=== PATIENT | male | born 1960 | race Caucasian/White ===

== ENCOUNTER 2023-12-22 14:42 | Emergency (ER) | payer SELFPAY ==
[2023-12-22 14:43] VITALS: BP 152/84; PULSE 66; TEMP 36.8; O2SAT 98; BMI 25.1
--- NOTE | 2023-12-22 14:50 | ED.GENADUL1 ---
HPI HPI - General Adult General Chief complaint: Back Pain/Injury Stated complaint: BACK PAIN/FALL Time Seen by Provider: 12/22/23 14:44 Source: patient Mode of arrival: ambulance Limitations: no limitations History of Present Illness HPI narrative: Patient is a 63-year-old male who presents to the emergency department by ambulance after a fall at home reporting back pain. Patient apparently had a fall outside his home on grass, got up and went inside his home where he consumed some alcohol and then fell in the grass again. He apparently called 911 for himself and was brought by ambulance. He denies head injury, loss of consciousness. EMS gave Toradol prior to arrival. Patient has a history of nerve block to the left arm, patient states because of the nerve block to his left arm he was off balance while he was walking. Per registration, the patient called the ER prior to calling 911 to ask if he could be evaluated and if EMS would bring him to this facility Related Data Previous Rx's ?Medication ?Instructions ?Recorded methocarbamol 750 mg tablet 750 mg PO TID PRN pain #20 tabs 12/22/23 Allergies Allergy/AdvReac Type Severity Reaction Status Date / Time No Known Drug Allergies Allergy Verified 12/22/23 14:48 Opioid HPI Opioid Management Most Recent Opioid Data: No Data to Display Review of Systems ROS Constitutional Denies: fever or chills Ears, nose, mouth, and throat Denies: throat pain or nasal congestion Cardiovascular Denies: chest pain Respiratory Denies: shortness of breath or cough Gastrointestinal Denies: nausea or vomiting Musculoskeletal Reports: back pain; Denies: neck pain, extremity pain or extremity swelling Hematologic/Lymphatic Denies: easy bruising or easy bleeding Exam Narrative Exam Narrative: Gen.: Awake, alert, in no distress Head: Normocephalic, atraumatic ENT: Moist mucous membranes, C-spine nontender Respiratory: No respiratory distress, lungs clear bilaterally Cardio: Regular rate and rhythm Gastrointestinal: Abdomen is soft, nondistended and nontender to palpation, hips nontender Back: No bony midline tenderness of the T-spine or L-spine with diffuse tenderness of the right flank and right hip posteriorly. No ecchymosis or CVA tenderness. Patient is able to logroll himself with no difficulty Extremities: Moves extremities equally, no injuries noted Psych: Normal mood and affect Neuro: No focal neuro deficit Skin: Warm, dry, intact Constitutional Vital Signs, click to edit/add: Last Vital Signs Temp 98.2 F 12/22/23 14:43 Pulse 66 12/22/23 14:43 Resp 20 12/22/23 14:43 BP 152/84 H 12/22/23 14:43 Pulse Ox 98 12/22/23 14:43 Course Vital Signs Vital signs: Vital Signs Temperature 98.2 F 12/22/23 14:43 Pulse Rate 66 12/22/23 14:43 Respiratory Rate 20 12/22/23 14:43 Blood Pressure 152/84 H 12/22/23 14:43 Pulse Oximetry 98 12/22/23 14:43 Temperature 98.2 F 12/22/23 14:43 Pulse Rate 66 12/22/23 14:43 Respiratory Rate 20 12/22/23 14:43 Blood Pressure 152/84 H 12/22/23 14:43 Pulse Oximetry 98 12/22/23 14:43 Medical Decision Making MDM Narrative Medical decision making narrative: Patient admits to drinking alcohol, however he is awake and alert and appropriate with no focal neurodeficits. CTs of the head, C-spine, lumbar spine and pelvis are unremarkable. He apparently filled a prescription for Percocet today per pharmacy records so he is discharged home with Robaxin follow-up with PCP. He has a responsible alliance party to pick him up from the emergency department. In no distress on reevaluation by attending physician at discharge. Patient is ambulating in the emergency department with no difficulty. SHARED APC VISIT, PHYSICIAN ATTESTATION: [id number] I performed a substantive part of the MDM during the patient?s E/M visit. I personally evaluated and examined the patient. I personally made or approved the documented management plan and acknowledge its risk of complications. Medical Records Medical records reviewed: Yes I reviewed the patient's medical records Imaging Data CT scan - head: Attestation: I have reviewed the pertinent imaging results. Radiologist's impression: ITS Impressions Cervical Spine CT 12/22/23 15:16 IMPRESSION: 1. No appreciable acute abnormality. 2. Mild to moderate degenerative changes of cervical spine, greatest at C6-7 where there is suspected marked foramen and moderate to marked central canal narrowing. Consider MRI follow-up for further evaluation. Electronically authenticated by: VIRGIL SEO Date: 12/22/2023 15:[address] 12/22/23 15:16 IMPRESSION: No acute intracranial abnormalities. Electronically authenticated by: BABS SOLIS Date: 12/22/2023 15:[address] 12/22/23 15:16 IMPRESSION: 1. No acute bone abnormality. 2. Mild degenerative changes of lumbar spine. 3. Nonspecific osseous growth/heterotopic bone formation arising from and anterior to the left iliac wing suspected to be sequela of remote trauma. No prior studies for comparison. Electronically authenticated by: VIRGIL SEO Date: 12/22/2023 15:[address] 12/22/23 15:16 IMPRESSION: 1. No acute bone abnormality. 2. Mild degenerative changes of lumbar spine. 3. Nonspecific osseous growth/heterotopic bone formation arising from and anterior to the left iliac wing suspected to be sequela of remote trauma. No prior studies for comparison. Electronically authenticated by: VIRGIL SEO Date: 12/22/2023 15:39 Discharge Plan Discharge Stand Alone Forms: Work/School Release, Portal Instructions Chief Complaint: Back Pain/Injury Clinical Impression: Fall, Low back pain Patient Disposition: Home, Self-Care Time of Disposition Decision: 16:13 Condition: Good Prescriptions / Home Meds: New methocarbamol 750 mg tablet 750 mg PO TID PRN (Reason: pain) Qty: 20 0RF Print Language: Slovenian Instructions: Acute Low Back Pain (ED) Referrals: Physician,Non-Staff, MD [Primary Care Provider] - 1 week
[2023-12-22] MEDS: ONDANSETRON PF 4 MG/2 ML VIAL IV (14:55)
[2023-12-22] MEDS: HYDROMORPHONE HCL 0.5 MG/0.5 ML SYRINGE IV (14:55)
[2023-12-22] MEDS: METHOCARBAMOL 500 MG TABLET PO (14:55)
--- NOTE | 2023-12-22 15:16 | CT_ITS ---
[address] [address] Patient Name: JOHN ASTORGA MRN: [id number] date: 1960 Sex: M Assigned Patient Location: ER Current Patient Location: Accession/Order Number: [id number] Exam Date: 12/22/2023 15:00 Report Date: 12/22/2023 15:39 At the request of: WANDA MONET Procedure: CT pelvis wo con EXAMINATION: CT pelvis wo con, CT lumbar spine wo con HISTORY: Fall , low back pain COMPARISON: No relevant comparison available. TECHNIQUE: Axial, Coronal, and Sagittal images were obtained without and/or with IV contrast as indicated by examination type. Dose reduction techniques were achieved by using automated exposure control and/or adjustment of mA and/or kV according to patient size and/or use of iterative reconstruction technique FINDINGS: BOWEL: No abnormality of the visible bowl. LYMPH NODES: No adenopathy. URINARY BLADDER: No visible focal wall thickening, lesion, or calculus. PELVIC ORGANS: No visible mass. Pelvic organs appropriate for patient age. ANTERIOR WALL: No hernia. BONES: Osseous growth and heterotopic bone formation along anterior margin of left iliac wing suspected represents sequela of remote trauma. Bilateral hip replacements. Moderate degenerative disc disease L5-S1. OTHER: Negative. CT/CT pelvis wo con IMPRESSION: 1. No acute bone abnormality. 2. Mild degenerative changes of lumbar spine. 3. Nonspecific osseous growth/heterotopic bone formation arising from and anterior to the left iliac wing suspected to be sequela of remote trauma. No prior studies for comparison. Electronically authenticated by: VIRGIL SEO Date: 12/22/2023 15:39
--- NOTE | 2023-12-22 15:16 | CT_ITS ---
The [address] [address] Patient Name: JOHN ASTORGA MRN: [id number] date: 1960 Sex: M Assigned Patient Location: ER Current Patient Location: ER Accession/Order Number: [id number] Exam Date: 12/22/2023 15:00 Report Date: 12/22/2023 15:31 At the request of: WANDA MONET Procedure: CT head/brain wo con EXAM: CT scan of the head without contrast. Dose reduction technique used: Automated exposure control and/or adjustment of the mA and/or kV according to patient size and/or use of iterative reconstruction technique. REASON FOR EXAM: Fall COMPARISON: None FINDINGS: No intracranial hemorrhage, mass effect, midline shift, fractures or evidence of acute ischemic infarct. No hydrocephalus. Mild generalized cerebral and cerebellar volume loss. Minimal small vessel gliosis. Paranasal sinuses and mastoid air cells are clear. Remainder unremarkable. CT/CT head/brain wo con IMPRESSION: No acute intracranial abnormalities. Electronically authenticated by: BABS SOLIS Date: 12/22/2023 15:31
--- NOTE | 2023-12-22 15:16 | CT_ITS ---
[address] [address] Patient Name: JOHN ASTORGA MRN: [id number] date: 1960 Sex: M Assigned Patient Location: ER Current Patient Location: Accession/Order Number: [id number] Exam Date: 12/22/2023 15:00 Report Date: 12/22/2023 15:39 At the request of: WANDA MONET Procedure: CT lumbar spine wo con EXAMINATION: CT pelvis wo con, CT lumbar spine wo con HISTORY: Fall , low back pain COMPARISON: No relevant comparison available. TECHNIQUE: Axial, Coronal, and Sagittal images were obtained without and/or with IV contrast as indicated by examination type. Dose reduction techniques were achieved by using automated exposure control and/or adjustment of mA and/or kV according to patient size and/or use of iterative reconstruction technique FINDINGS: BOWEL: No abnormality of the visible bowl. LYMPH NODES: No adenopathy. URINARY BLADDER: No visible focal wall thickening, lesion, or calculus. PELVIC ORGANS: No visible mass. Pelvic organs appropriate for patient age. ANTERIOR WALL: No hernia. BONES: Osseous growth and heterotopic bone formation along anterior margin of left iliac wing suspected represents sequela of remote trauma. Bilateral hip replacements. Moderate degenerative disc disease L5-S1. OTHER: Negative. CT/CT lumbar spine wo con IMPRESSION: 1. No acute bone abnormality. 2. Mild degenerative changes of lumbar spine. 3. Nonspecific osseous growth/heterotopic bone formation arising from and anterior to the left iliac wing suspected to be sequela of remote trauma. No prior studies for comparison. Electronically authenticated by: VIRGIL SEO Date: 12/22/2023 15:39
--- NOTE | 2023-12-22 15:16 | CT_ITS ---
The [address] [address] Patient Name: JOHN ASTORGA MRN: [id number] date: 1960 Sex: M Assigned Patient Location: ER Current Patient Location: ER Accession/Order Number: [id number] Exam Date: 12/22/2023 15:00 Report Date: 12/22/2023 15:33 At the request of: WANDA MONET Procedure: CT cervical spine wo con EXAMINATION: CT cervical spine wo con HISTORY: fall COMPARISON: No relevant comparison available. TECHNIQUE: Axial, Coronal, and Sagittal images were created without IV contrast. Dose reduction techniques were achieved by using automated exposure control and/or adjustment of mA and/or kV according to patient size and/or use of iterative reconstruction technique. FINDINGS: VERTEBRAL BODIES: Reversal of normal lordotic curvature of cervical spine. No fracture or spondylolisthesis. FACET JOINTS: Multilevel mild degenerative facet arthropathy. Osseous fusion of C2-3 on the left, likely developmental. DISCS: Mild narrowing C4-5, C5 and C6. Moderate narrowing C6-7 with prominent posterior disc osteophyte complex causing moderate central canal and marked bilateral foramen narrowing. CENTRAL CANAL: No evidence of hemorrhage. PARASPINAL AREA: No visible mass. CT/CT cervical spine wo con IMPRESSION: 1. No appreciable acute abnormality. 2. Mild to moderate degenerative changes of cervical spine, greatest at C6-7 where there is suspected marked foramen and moderate to marked central canal narrowing. Consider MRI follow-up for further evaluation. Electronically authenticated by: VIRGIL SEO Date: 12/22/2023 15:33
== END 2023-12-22 16:20 | disposition home or self-care (01) ==
PROVIDERS: Emergency Provider Emergency Medicine
DX: M54.50 Low back pain, unspecified (principal); Z91.81 History of falling
CPT/HCPCS: 70450; 72125; 72131; 72192; 96374; 96375; 99285; J1170; J2405

== ENCOUNTER 2024-03-26 14:00 | Emergency (ER) | payer OTHER, SELFPAY ==
[2024-03-26 14:19] VITALS: BP 133/79; PULSE 102; TEMP 36.7; O2SAT 97; BMI 26.5
== END 2024-03-26 14:39 | disposition left against medical advice (07) ==
PROVIDERS: Emergency Provider Emergency Medicine
DX: R51.9 Headache, unspecified (principal); Z53.21 Procedure and treatment not carried out due to patient leaving prior to being seen by health care provider

== ENCOUNTER 2024-03-26 22:21 | Emergency (ER) | payer OTHER, SELFPAY ==
[2024-03-26 22:28] VITALS: BP 107/69; PULSE 101; TEMP 36.6; O2SAT 95; BMI 28.1
--- OUTSIDE RECORDS SUMMARY | 2024-03-26 22:32 | XMS_ITS | CCD ---
Author Organization [facility] Care Team Providers Care Stone Repairer Name Role Phone Pcp, No Unavailable Unavailable Rosa Robertson MD Primary Care Provider Rosa Robertson MD Primary Care Provider [phone] Pcp, No Unavailable Unavailable Rosa Robertson MD Primary Care Provider MD Rosa Robertson Primary Care Provider [phone] MD Hector Cheng Emergency Provider [phone] Rosa Robertson MD Primary Care Provider PREM GUTHRIE Referring Unavailable ROBERTSON, ROSA Primary Care Unavailable PREM GUTHRIE Referring Unavailable ROBERTSON, ROSA Primary Care Unavailable PREM GUTHRIE Referring Unavailable ROBERTSON, ROSA Primary Care Unavailable ROBERTSON, ROSA Primary Care Unavailable ROBERTSON, ROSA Primary Care Unavailable PREM GUTHRIE Attending Unavailable PREM GUTHRIE Referring Unavailable ROBERTSON, ROSA Primary Care Unavailable PREM GUTHRIE Admitting Unavailable PREM GUTHRIE Attending Unavailable ROBERTSON, ROSA Primary Care Unavailable ROMA MILTON Consulting Unavailable FRANCISCO WAN Consulting Unavailable CHANCE WHITEHEAD Consulting Unavailable ROBERTSON, ROSA Primary Care Unavailable TIFFANIE SIFUENTES Referring Unavailable 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, No Unavailable Unavailable Rosa Robertson MD Primary Care Provider [phone] MD Rosa Robertson Primary Care Provider MD Messi Marie Attending Provider [phone] DO [place] Toure Emergency Provider [phone] Rosa Robertson MD Primary Care Provider KATHY ROJAS Attending Unavailable ROSA ROBERTSON Primary Care Unavailable ROSA ROBERTSON Primary Care Unavailable GATITO MORGAN Referring Unavailable ROSA ROBERTSON Primary Care Unavailable DO Perry Ledesma Emergency Provider [phone] Robertson, Rosa Primary Care Unavailable Hector Cheng Admitting Unavailable Hector Cheng Attending Unavailable Messi Marie Admitting Unavailable Messi Marie Attending Unavailable Robertson, Rosa Primary Care Unavailable Robertson, Rosa Primary Care Unavailable [place] Toure Admitting Unavailable [place] Toure Attending Unavailable Perry Ledesma Attending Unavailable Robertson, Rosa Primary Care Unavailable Perry Ledesma Admitting Unavailable ROBERTSON, ROSA L Primary Care Unavailable BROCK DE LA TORRE Attending Unavailable ROBERTSON, ROSA L Primary Care Unavailable BROCK VALDEZ Attending Unavailable SELF Referring Unavailable Robertson , Rosa L Primary Care Provider RENA JIANG Attending Unavailable MOISES KENNEDY Attending Unavailable MOISES KENNEDY Referring Unavailable MOISES KENNEDY Attending Unavailable RENA JIANG Attending Unavailable RENA JIANG Referring Unavailable Rosa Robertson MD Primary Care Provider ROBERTSON, ROSA L Primary Care Unavailable FACUNDO PENA Attending Unavailable ROBERTSON, ROSA L Primary Care Unavailable FACUNDO PENA Attending Unavailable ROBERTSON, ROSA L Primary Care Unavailable ROBERTSON, ROSA L Attending Unavailable ROBERTSON, ROSA L Primary Care Unavailable KARLI ACEVEDO Referring Unavailable ROBERTSON, ROSA L Primary Care Unavailable ROBERTSON, ROSA L Primary Care Unavailable KARLI ACEVEDO Referring Unavailable ROBERTSON, ROSA L Primary Care Unavailable ANNETTA MCCANN Attending Unavailable KARLI ACEVEDO Attending Unavailable ROBERTSON, ROSA L Primary Care Unavailable ROBERTSON, ROSA L Primary Care Unavailable ROBERTSON, ROSA L Primary Care Unavailable RIK ROSENTHAL Referring Unavailable ROBERTSON, ROSA L Primary Care Unavailable RIK ROSENTHAL Referring Unavailable MIMA SIMPSON Attending Unavailable ROBERTSON, ROSA L Primary Care Unavailable DAY HOLMAN Attending Unavailable ROBERTSON, ROSA L Primary Care Unavailable ROBERTSON, ROSA L Primary Care Unavailable SCOTT VOSS Attending Unavailabl e ROBERTSON, ROSA L Primary Care Unavailable SCOTT VOSS Referring Unavailabl e ROBERTSON, ROSA L Primary Care Unavailable HANNYT, RIK Referring Unavailable ROBERTSON, ROSA L Primary Care Unavailable AC ROSENTHALK Attending Unavailable ROBERTSON, ROSA L Primary Care Unavailable MESSI MARIE F Referring Unavailable ROBERTSON, ROSA L Primary Care Unavailable MYA RACHEL Attending Unavailable ROBERTSON, ROSA L Primary Care Unavailable GATITO MORGAN Attending Unavailable ILIANA ROBERTSONCY L Primary Care Unavailable RIK ROSENTHAL Attending Unavailable FACUNDO PENA Referring Unavailable RSOA ROBERTSON Angelo Primary Care Unavailable KARLI ACEVEDO Referring Unavailable ROSA ROBERTSON L Primary Care Unavailable ROBERTSONROSA L Primary Care Unavailable RIK ROSENTHAL Attending Unavailable ROSA ROBERTSON L Primary Care Unavailable Medications Current Medications Medication Drug Class(es) Dates Sig (Normalized) Sig (Original) acamprosate calcium 333 mg delayed release oral tablet (20 sources) Start: 11-22-2022 take 2 tablets by mouth three times daily acamprosate DR (CAMPRAL) 333 mg tablet Take 2 tablets by mouth three times daily. 12/07/2022 Active Comment on above: Take 2 tablets by mo ut three times daily. acetaminophen 325 mg / HYDROcodone bitartrate 5 mg oral tablet (20 sources) Opioid Agonist Start: 01-11-2024 End: 02-07-2024 take 1 tablet by mouth every eight hours as needed for pain HYDROcodone-acetami nophen (NORCO) 5-325 mg per tablet Indications: Postoperative state Take 1 tablet by mouth every 8 hours as needed for pain for up to 7 days. 21 tablet 01/31/2024 02/07/2024 Active Start: 01-04-2024 End: 01-11-2024 take 1 tablet by mouth every six hours as needed for pain HYDROcodone-acetaminophen (NORCO) 5-325 mg per tablet Indications: Postoperative state Take 1 tablet by mouth every 6 hours as needed for pain for up to 7 days. 28 tablet 01/04/2024 01/11/2024 Discontinued acetaminophen 325 mg / oxyCODONE hydrochloride 5 mg oral tablet (20 sources) Opioid Agonist Start: 12-22-2023 End: 01-04-2024 take 1 tablet by mouth every six hours as needed for pain oxyCODONE-acetaminophen (PERCOCET) 5-325 mg tablet Indications: Postoperative state Take 1 tablet by mouth every 6 hours as needed for pain for up to 7 days. 28 tablet 12/28/2023 01/04/2024 Active Start: 12-17-2023 End: 12-22-2023 take 1 tablet by mouth every four hours as needed for pain oxyCODONE-acetaminophen (PERCOCET) 5-325 mg tablet Indications: Primary arthrosis of first carpometacarpal joints, bilateral Take 1 tablet by mouth every 4 hours as needed for pain for up to 5 days. Patient should start on December 17, 2023. 30 tablet 12/17/2023 12/19/2023 Discontinued Start: 12-13-2023 End: 12-20-2023 take 1 tablet by mouth every six hours as needed for pain oxyCODONE-acetaminophen (PERCOCET) 5-325 mg tablet Indications: Primary arthrosis of first carpometacarpal joints, bilateral Take 1 tablet by mouth every 6 hours as needed for pain for up to 7 days. 28 tablet 0 12/13/2023 12/16/2023 Discontinued Start: 12-14-2022 End: 11-09-2023 take 1 tablet by mouth every eight hours as needed for pain oxyCODONE-acetaminophen (PERCOCET) 5-325 mg tablet Indications: Other specified injury of extensor muscle, fascia and tendon of left thumb at wrist and hand level, initial encounter Take 1 tablet by mouth every 8 hours as needed for pain. 20 tablet 12/21/2022 11/09/2023 Discontinued Start: 02-05-2022 End: 02-12-2022 take 1 tablet by mouth every six hours as needed for pain oxyCODONE-acetaminophen (PERCOCET) 5-325 mg tablet Indications: Orthopedic aftercare Take 1 tablet by mouth every 6 hours as needed for pain for up to 7 days. 28 tablet 0 02/05/2022 02/12/2022 Active Start: 10-12-2017 End: 11-07-2017 take 1 tablet by mouth every four hours Oxycodone-Acetaminophen (Percocet) 5-325 mg tablet Discontinued 1 TAB PO Q4H October 12, 2017 November 07, 2017 2:19am Comment on above: Take 1 tablet by ramila th every 6 hours as needed for pain for up to 7 days. Take 1 tablet by ramila th every 8 hours as needed for pain. [id number] 200 actuat albuterol 0.09 mg/actuat metered dose inhaler (20 sources) beta2-Adrenergic Agonist Start: 04-16-2022 albuterol (PROVENTIL HFA) INHALATION HFA inhaler (VENTOLIN,PROAIR,PROVENT IL) 90mcg 2 Puffs. 04/16/2022 Active Start: 04-16-2022 Start: 04-30-2021 End: 12-07-2022 take 2 puff(s) by inhalation every four hours as needed for wheezing albuterol HFA (PROAIR HFA) 90 mcg/actuation inhaler 2 Puffs every 4 hours as needed for wheezing/shortness of breath. Take as directed 1 Each 04/16/2022 12/07/2022 Discontinued (Course of therapy completed) Start: 10-12-2017 End: 11-07-2017 take 2.5 mg by inhalation four times daily Albuterol Sulfate Discontinued 2.5 MG INHALATION Four times daily October 12, 2017 12:00am November 07, 2017 2:20am Comment on above: 2 Puffs every 4 hour s as needed for wheezing/shortness of breath. Take as directed ALPRAZolam 1 mg oral tablet (4 sources) Benzodiazepine take 1 tablet by mouth in the morning ALPRAZolam (Xanax) 1 MG tablet Take 1 tablet by mouth in the morning and 1 tablet in the evening. Active amantadine hydrochloride 100 mg oral capsule (19 sources) Influenza A M2 Protein Inhibitor Start: amantadine (SYMMETREL) 100 MG capsule Amantadine Hcl Active 100 MG PO Daily September 13, 2021 12:00am 09/13/2021 Active Start: 09-13-2021 amantadine (SY MMETREL) 100 MG capsule Amantadine Hcl Active 100 MG PO Daily September 13, 2021 12:00am 0 09/13/2021 Active Start: 05-06-2021 End: 08-20-2021 take 1 capsule by mouth once daily amantadine HCl (SYMMETREL) 100 mg capsule Take 1 capsule by mouth once daily. 30 capsule 2 05/06/2021 08/20/2021 Discontinued (Course of therapy completed) Comment on above: Take 1 capsule by [facility] once daily. amitriptyline hydrochloride 50 mg oral tablet (20 sources) Tricyclic Antidepressant Start: 08-20-2021 End: 09-19-2023 amitriptyline (ELAVIL) 50 MG tablet Take 1 Tablet by mouth. 09/13/2021 Active Start: 05-06-2021 End: 08-20-2021 take 1 tablet by mouth once daily at bedtime amitriptyline (ELAVIL) 100 mg tablet Take 1 tablet by mouth daily at bedtime. 30 tablet 2 05/06/2021 08/20/2021 Discontinued (Course of therapy completed) take 1 tablet by ramila th at bedtime amitriptyline (Elavil) 10 MG tablet Take 1 tablet by mouth at bedtime Active Comment on above: Take 1 tablet by ramila th daily at bedtime. ascorbic acid 1000 mg oral tablet (20 sources) Vitamin C Start: 09-25-2021 End: 03-16-2022 take 1 tablet by mouth once daily Ascorbic Acid 1,000 mg tablet Indications: Cough , Hoarseness , Throat congestion TAKE 1 TABLET BY MOUTH DAILY 90 tablet 3 03/16/2022 Active Comment on above: Take 1 tablet by ramila th once daily. TAKE 1 TABLET BY RAMILA TH DAILY aspirin 81 mg delayed release oral tablet (20 sources) Platelet Aggregation Inhibitor, Nonsteroidal Anti-inflammatory Drug Start: 08-20-2021 End: 11-19-2022 take 1 tablet by mouth in the morning aspirin 81 MG EC tablet Take 1 tablet by mouth in the morning and 1 tablet before bedtime. 06/22/2022 Active Start: 08-24-2020 take 81 mg by mouth once daily Aspirin Active 81 MG PO Daily August 24, 2020 12:00am Start: 05-15-2020 End: 08-20-2022 take 1 tablet by mouth once daily aspirin, enteric coated (ECOTRIN LOW STRENGTH) 81 mg EC tablet Take 1 tablet by mouth once daily. 90 tablet 3 08/20/2021 Active Start: 02-06-2018 End: 10-15-2018 take 2 tablets by mouth twice daily Aspirin Discontinued 2 TAB PO Twice daily February 06, 2018 12:00am October 15, 2018 4:37pm Start: 03-12-2017 End: 10-12-2017 take 81 mg by mouth once daily Aspirin Discontinued 81 MG PO Daily March 12, 2017 1:00am October 12, 2017 8:44pm Comment on above: Take 1 tablet by ramila th once daily. benzonatate 100 mg oral capsule (20 sources) Non-narcotic Antitussive Start: 2 End: 2 take 1 capsule by mouth every eight hours as needed benzonatate (TESSALON PERLE) 100 mg capsule Take 1 capsule by mouth three times daily as needed. 90 capsule 2 01/13/2022 02/12/2022 Active Start: 09-23-2021 End: 12-17-2021 take 1 capsule by mouth every eight hours as needed benzonatate (TESSALON PERLES) 100 mg capsule Take 1 capsule by mouth three times daily as needed for cough. 30 capsule 0 09/23/2021 12/17/2021 Discontinued (Course of therapy completed) Comment on above: Take 1 capsule by mo uth three times daily as needed for cough. Take 1 capsule by mo uth three times daily as needed. cholecalciferol 0.025 mg oral tablet (20 sources) Vitamin D Start: take 1 tablet by mouth once daily VITAMIN D 25 mcg (1,000 unit) tab tablet Indications: Cough , Hoarseness , Throat congestion take 1 tablet by mouth daily 90 tablet 3 05/17/2023 Active Start: 03-04-2023 take 1 tablet by ramila th in the morning D3-1000 25 MCG (1000 UT) tablet Take 25 mcg by mouth in the morning. 03/04/2023 Active Start: 09-25-2021 End: 03-16-2022 take 1 tablet by mouth once daily VITAMIN D 25 mcg (1,000 unit) tab tablet Indications: Cough , Hoarseness , Throat congestion take 1 tablet by mouth daily 90 tablet 3 05/17/2023 Active Comment on above: Take 1 tablet by ramila th once daily. TAKE 1 TABLET BY RAMILA TH DAILY citalopram 40 mg oral tablet (20 sources) Serotonin Reuptake Inhibitor Start: 08-24-2020 take 60 mg by mouth once daily Citalopram Active 60 MG PO Daily August 24, 2020 12:00am Start: 08-24-2020 End: 08-24-2020 Citalopram Discontinued MG T ABLET August 24, 2020 12:00am August 24, 2020 8:01pm Start: 05-22-2020 End: 03-08-2022 take 1.5 tablets by mouth once daily citalopram (CELEXA) 40 mg tablet Indications: Anxiety Take 1.5 tablets by mouth once daily. 135 tablet 3 05/22/2020 03/08/2022 Discontinued Start: 10-12-2017 End: 08-24-2020 take 1 tablet by mouth once daily citalopram (CELEXA) 40 mg tablet Indications: Anxiety TAKE 1 TABLET BY MOUTH DAILY 90 tablet 3 06/11/2019 05/23/2020 Discontinued Comment on above: Take 1.5 tablets by mouth once daily. CPAP (20 sources) Start: 05-27-2021 CPAP Indications: SUSANNAH (obstructive sleep apnea) New set up: AutoCPAP 5-15 cm H2O, mask (pt pref), filters, heated humidity & tubing. Lifetime supplies. SUSANNAH G47.33. 1 Each 05/27/2021 Active Start: 05-27-2021 CPAP Indicatio ns: SUSANNAH (obstructive sleep apnea) New set up: AutoCPAP 5-15 cm H2O, mask (pt pref), filters, heated humidity & tubing. Lifetime supplies. SUSANNAH G47.33. 1 Each 0 05/27/2021 Active Comment on above: New set up: AutoCPAP 5-15 cm H2O, mask (pt pref), filters, heated humidity & tubing. Lifetime supplies. SUSANNAH G47.33. cyclobenzaprine hydrochloride 5 mg oral tablet (6 sources) Muscle Relaxant Start: 06-28-19 End: 07-09-19 take 1 tablet by mouth twice daily as needed for muscle spasms cyclobenzaprine (Flexeril) 5 MG tablet TAKE 1 TABLET BY MOUTH TWICE DAILY NEEDED MUSCLE SPASM 06/28/2022 Active Start: 05-22-2020 End: 05-27-2020 take 1 tablet by mouth every eight hours as needed cyclobenzaprine (FLEXERIL) 10 mg tablet Take 1 tablet by mouth every 8 hours as needed for Muscle Spasm or Pain for up to 5 days. 10 tablet 0 05/22/2020 05/27/2020 Comment on above: Take 1 tablet by ramila every 8 hours as needed for Muscle Spasm or Pain for up to 5 days. dicyclomine hydrochloride 10 mg oral capsule (8 sources) Anticholinergic Start: 11-23-19 End: 12-08-19 take 2 capsules by mouth four times daily as needed, then take 2 capsules by mouth three times daily as needed dicyclomine (BENTYL) 10 MG capsule Take 2 Capsules by mouth 4 times daily for 5 days, THEN 2 Capsules 3 times daily as needed for up to 10 days. 15 Capsule 11/22/2022 Active Start: 11-20-2022 End: 12-07-2022 Docosahexaenoate (4 sources) Start: 11-05-2021 take 2 capsules by mouth once daily at bedtime DOCOSAHEXAENOIC ACID ORAL TAKE 2 CAPSULES BY MOUTH once DAILY AT BEDTIME 11/05/2021 Active Start: 11-05-2021 take 2 capsules by m outh once daily at bedtime DOCOSAHEXAENOIC ACID ORAL TAKE 2 CAPSULES BY MOUTH once DAILY AT BEDTIME 0 11/05/2021 Active docosahexaenoic acid 120 mg / eicosapentaenoic acid 180 mg oral capsule (20 sources) Start: 06-06-2022 take 2 capsules by mouth at bedtime omega 8-anc-enx-fish oil 300 mg (120 mg- 180mg)-1,000 mg cap take 2 capsules by mouth at bedtime 60 capsule 8 07/27/2023 Active take 1 capsule by mouth at bedti me omega-3 (Fish Oil) 1000 MG capsule Take 2,000 mg by mouth at bedtime Active Comment on above: TAKE 2 CAPSULES BY M OUTH AT BEDTIME docusate sodium 50 mg / sennosides, detention 8.6 mg oral tablet (1 source) Start: 06-22-2022 End: 07-02-2022 take 1 tablet by mouth twice daily sennosides-docusate sodium (SENOKOT-S) 8.6-50 MG tablet Take 1 tablet by mouth 2 times daily for 10 days 20 tablet 0 06/22/2022 07/02/2022 Active doxycycline hyclate 100 mg oral capsule (16 sources) Tetracycline-class Drug Start: 12-14-2022 End: 12-24-2022 take 1 capsule by mouth twice daily doxycycline hyclate (VIBRAMYCIN) 100 mg capsule Indications: Other specified injury of extensor muscle, fascia and tendon of left thumb at wrist and hand level, initial encounter Take 1 capsule by mouth twice daily for 10 days. 20 capsule 0 12/14/2022 12/24/2022 Active Start: 09-25-2021 End: 12-17-2021 take 1 capsule by mouth twice daily doxycycline monohydrate (MONODOX) 100 mg capsule Indications: Cough , Throat congestion Take 1 capsule by mouth twice daily. 14 capsule 0 09/25/2021 12/17/2021 Discontinued (Course of therapy completed) Comment on above: Take 1 capsule by [facility] twice daily. Take 1 capsule by [facility] twice daily for 10 days. escitalopram 20 mg oral tablet (20 sources) Serotonin Reuptake Inhibitor Start: 04-01-2023 End: 10-03-2023 escitalopram oxalate (LEXAPRO) 20 mg tablet Indications: Anxiety , SOB (shortness of breath) TAKE 1 and ONE-HALF TABLETS BY MOUTH DAILY 45 tablet 5 10/03/2023 Active Start: 11-19-2022 take 30 mg by mouth once daily 30 mg, Oral, DAILY, First dose on Tue11/19/22 at 0900, Until Discontinued Start: 06-06-2022 escitalopram ( LEXAPRO) 20 MG tablet Take 1 and 1/2 tablet by mouth daily 0 06/06/2022 Active Start: 03-08-2022 End: 04-01-2023 take 1.5 tablets by mouth once daily escitalopram (LEXAPRO) 20 MG tablet Take 1.5 Tablets by mouth daily. 03/08/2022 Active Start: 03-08-2022 take 10 mg by mouth once daily Escitalopram Oxalate Active 10 MG PO Daily August 10, 2022 12:00am Start: 03-04-2022 End: 03-08-2022 take 1 tablet by mouth once daily escitalopram oxalate (LEXAPRO) 20 mg tablet Indications: Anxiety , SOB (shortness of breath) Take 1 tablet by mouth once daily. 45 tablet 11 03/04/2022 03/08/2022 Discontinued Comment on above: Take 1 tablet by [facility] once daily. Take 1.5 tablets by mouth once daily. Take 1 and 1/2 table t by mouth daily TAKE 1 and ONE-HALF TABLETS BY MOUTH DAILY fenofibrate 48 mg oral tablet (6 sources) Peroxisome Proliferator Receptor alpha Agonist Start: 11-22-19 take 1 tablet by mouth once daily fenofibrate (TRICOR) 48 MG tablet Take 1 Tablet by mouth daily. 30 Tablet 3 11/23/2022 Active ferrous sulfate 325 mg oral tablet (6 sources) Start: 11-20-19 take 1 tablet by mouth every other day ferrous sulfate 325 (65 Fe) MG tablet Take 1 Tablet by mouth every other day. 60 Tablet 2 11/23/2022 Active fluconazole 100 mg oral tablet (8 sources) Azole Antifungal Start: 12-30-19 End: 01-21-20 fluconazole (DIFLUCAN) 100 mg tablet Take 1 tablet by mouth once daily for 7 days. Take 2 tablet on the first day, then 1 tablet for the next 13 days for a total of 14 days 7 tablet 0 01/13/2022 01/20/2022 Active Comment on above: Take 1 tablet by ramila th once daily for 15 days. Take 2 tablet on the first day, then 1 tablet for the next 13 days for a total of 14 days Take 1 tablet by ramila th once daily for 7 days. Take 2 tablet on the first day, then 1 tablet for the next 13 days for a total of 14 days fluticasone propionate 0.05 mg/actuat metered dose nasal spray (20 sources) Corticosteroid Start: 07-17-19 take 2 spray(s) nasal route once daily at bedtime fluticasone (FLONASE) 50 mcg/actuation nasal spray Indications: Viral infection, unspecified use 2 (TWO) sprays IN EACH NOSTRIL DAILY AT BEDTIME 16 g 11 07/16/2021 Active Start: 07-16-2021 take 2 spray(s) nasa l route once daily at bedtime fluticasone (FLONASE) 50 mcg/act nasal inhaler use 2 (TWO) sprays IN EACH NOSTRIL DAILY AT BEDTIME 07/16/2021 Active Start: 08-24-2020 Fluticasone Pr opionate Active 2 SPRAY INTRANASAL Daily at bedtime August 24, 2020 12:00am Start: 09-25-2019 End: 07-07-2020 take 2 spray(s) nasal route once daily at bedtime fluticasone (FLONASE) 50 mcg/actuation nasal spray Indications: Viral illness Use 2 Sprays in each nostril daily at bedtime. 1 Bottle 11 09/25/2019 07/07/2020 Discontinued Comment on above: use 2 (TWO) sprays I N EACH NOSTRIL DAILY AT BEDTIME Use 2 Sprays in each nostril daily at bedtime. folic acid 1 mg oral tablet (6 sources) Start: 3 take 1 tablet by mouth once daily folic acid 1 MG tablet Take 1 Tablet by mouth daily. 30 Tablet 3 11/23/2022 Active gabapentin 300 mg oral capsule (4 sources) Anti-epileptic Agent Start: 4 End: 5 take 1 capsule by mouth three times daily gabapentin (NEURONTIN) 300 mg capsule Take 1 capsule by mouth three times a day for 90 days. 90 capsule 02/29/2024 05/29/2024 Active 1 ml galcanezumab-gnlm 120 mg/ml prefilled syringe (20 sources) Start: 3 Galcanezumab-gnlm (Emgality) 120 MG/ML SOSY inject 2 (TWO) ml SUBCUTANEOUSLY for 1 (ONE) dose (do not shake) 05/13/2022 Active Start: 05-13-2022 Start: 05-12-2022 End: 05-12-2022 inject 1 mL by subcutaneous injection every month galcanezumab-gnlm (EMGALITY PEN) 120 mg/mL pen Inject 1 mL subcutaneously once every month. Do not shake. Start after completing 240mg loading dose. 1 mL 11 05/12/2022 Active Start: 05-12-2022 inject 120 mg by sub cutaneous injection every 30 days Galcanezumab-gnlm (Emgality) 120 MG/ML SOAJ Inject 120 mg under the skin every 30 days. 05/12/2022 Active Comment on above: Inject 2 mL subcutan eously one time only for 1 dose. Do not shake. Inject 1 mL subcutan eously once every month. Do not shake. Start after completing 240mg loading dose. ibuprofen 800 mg oral tablet (20 sources) Nonsteroidal Anti-inflammatory Drug Start: 08-10-2022 take 800 mg by mouth three times daily Ibuprofen Active 800 MG PO Three times daily August 10, 2022 12:00am Start: 05-22-2020 End: 01-29-2022 take 1 tablet by mouth every eight hours as needed for pain ibuprofen (MOTRIN) 600 mg tablet Indications: Status post arthroscopy of right shoulder Take 1 tablet by mouth every 8 hours as needed for Pain. Take with food. 100 tablet 0 05/22/2020 01/29/2022 Discontinued (Course of therapy completed) Start: 05-16-2018 End: 10-15-2018 take 800 mg by mouth three times daily Ibuprofen Discontinued 800 MG PO Three times daily May 16, 2018 1:00am October 15, 2018 4:37pm Start: 10-12-2017 End: 10-15-2018 take 600 mg by mouth three times daily Ibuprofen Discontinued 600 MG PO Three times daily October 12, 2017 12:00am October 15, 2018 4:37pm Comment on above: Take 1 tablet by ramila th every 8 hours as needed for Pain. Take with food. LORazepam 0.5 mg oral tablet (20 sources) Benzodiazepine Start: End: take 1 tablet by mouth once daily at bedtime LORazepam (ATIVAN) 0.5 mg Indications: Primary insomnia Take 1 tablet by mouth daily at bedtime for 180 days. 30 tablet 5 09/19/2023 03/17/2024 Active Start: 11-18-2022 End: 11-18-2022 2 mg, Intravenous Push, STAT , 1 dose, On Tue11/18/22 at 2253 Start: 11-18-2022 End: 11-18-2022 2 mg, Intravenous Push, STAT , 1 dose, On Tue11/18/22 at 2217 losartan potassium 50 mg oral tablet (20 sources) Angiotensin 2 Receptor Janette Start: 11-22-2022 take 100 mg by mouth once daily 100 mg, Oral, DAILY, First dose (after last modification) on Tue11/22/22 at 0900, Until Discontinued Start: 11-19-2022 End: 11-21-2022 take 50 mg by mouth once daily 50 mg, Oral, DAILY, Fir st dose on Tue11/19/22 at 0900, Until Discontinued Start: 09-25-2021 End: 12-26-2023 take 1 tablet by mouth once daily losartan (COZAAR) 50 mg tablet Indications: Hypertension, unspecified type take 1 tablet by mouth every day 90 tablet 3 12/26/2023 Active Comment on above: Take 1 tablet by ramila th once daily. TAKE 1 TABLET BY RAMILA TH DAILY meloxicam 15 mg oral tablet (13 sources) Nonsteroidal Anti-inflammatory Drug Start: 11-01-2022 End: 12-31-2022 take 1 tablet by mouth once daily meloxicam (MOBIC) 15 MG tablet Take 1 Tablet by mouth daily. 0 11/01/2022 12/31/2022 Active Start: 09-03-2022 End: 10-03-2022 take 1 tablet by mouth once daily meloxicam (MOBIC) 15 MG tablet Take 1 tablet by mouth daily 30 tablet 1 09/03/2022 Active Start: 06-22-2022 End: 07-06-2022 take 1 tablet by mouth once daily meloxicam (MOBIC) 7.5 MG tablet Take 1 tablet by mouth daily for 14 days 14 tablet 0 06/22/2022 Active Start: 04-06-2020 End: 07-07-2020 take 1 tablet by mouth once daily meloxicam (MOBIC) 15 mg tablet Take 1 tablet by mouth once daily. 30 tablet 5 04/06/2020 07/07/2020 Discontinued End: 02-28-2020 meloxicam (MOBIC ORAL) Take by mouth. 02/28/2020 Discontinued Comment on above: Take 1 tablet by ramila th once daily. methocarbamol 750 mg oral tablet (20 sources) Muscle Relaxant Start: End: take 1 tablet by mouth three times daily methocarbamol (ROBAXIN) 750 mg tablet Take 1 tablet by mouth three times a day. 90 tablet 01/25/2024 Active Start: 11-19-2022 take 750 mg by mouth four times daily 750 mg, Oral, 4 TIMES DAILY, First dose on Tue11/19/22 at 1300, Until Discontinued 24 hr metoprolol succinate 50 mg extended release oral tablet (20 sources) beta-Adrenergic Janette Start: 12-26-2023 take 1 tablet by mouth every twenty-four hours at bedtime metoprolol succinate ER (TOPROL XL) 50 mg 24 hr tablet take 1 tablet by mouth at bedtime 90 tablet 3 12/26/2023 Active Start: 05-06-2021 End: 12-17-2021 take 1 tablet by mouth once daily metoprolol succinate ER (TOPROL XL) 100 mg Take 1 tablet by mouth once daily. 30 tablet 11 05/06/2021 12/17/2021 Discontinued (Dosage adjustment) Start: 08-24-2020 take 50 mg by mouth once daily Metoprolol Succinate Active 50 MG PO Daily August 24, 2020 12:00am Start: 05-15-2020 End: 12-26-2023 metoprolol (TOPROL-XL) 50 mg XL tablet Take 1 Tablet by mouth. 12/17/2021 Active Comment on above: Take 1 tablet by ramila th daily at bedtime. Take 1 tablet by ramila th once daily. TAKE 1 TABLET BY RAMILA TH DAILY AT BEDTIME Misc. Devices (BATH/SHOWER SEAT) MISC (7 sources) Start: 05-04-2022 Misc. Devices (BATH/SHOWER SEAT) MISC Dispense 1 Shower/Bath seat 1 each 0 05/04/2022 Active Misc. Devices (CLASSICS ROLLING WALKER) MISC (7 sources) Start: 05-04-2022 Misc. Devices (CLASSICS ROLLING WALKER) MISC Dispense 1 rolling walker 1 each 0 05/04/2022 Active Misc. Devices (RAISED TOILET SEAT) MISC (7 sources) Start: 05-04-2022 Misc. Devices (RAISED TOILET SEAT) MISC Dispense 1 raised toilet seat 1 each 0 05/04/2022 Active naproxen 500 mg oral tablet (20 sources) Nonsteroidal Anti-inflammatory Drug Start: 04-16-2022 End: 10-18-2023 take 1 tablet by mouth twice daily as needed for pain naproxen (NAPROSYN) 500 mg tablet Indications: Hip pain TAKE 1 TABLET BY MOUTH TWICE DAILY NEEDED FOR PAIN (TAKE WITH FOOD) 60 tablet 5 10/18/2023 Active Start: 07-07-2020 End: 01-29-2022 take 500 mg by mouth twice daily Naproxen Discontinued 500 MG PO Twice daily August 24, 2020 12:00am September 13, 2021 9:10pm Comment on above: Take 1 tablet by ramila th twice daily as needed (for pain). Take with food TAKE 1 TABLET BY RAMILA TH TWICE DAILY NEEDED FOR PAIN (TAKE WITH FOOD) pantoprazole 40 mg delayed release oral tablet (20 sources) Proton Pump Inhibitor Start: 07-23-19 End: 10-03-19 take 1 tablet by mouth once daily pantoprazole DR (PROTONIX) 40 mg tablet Indications: Gastroesophageal reflux disease without esophagitis take 1 tablet by mouth daily 30 tablet 5 10/03/2023 Active Comment on above: Take 1 tablet by ramila th once daily. TAKE 1 TABLET BY RAMILA TH DAILY perflutren lipid microspheres 1.3 mL in NaCl (PF) 0.9% 10 mL injection (DEFINITY) (20 sources) Start: 07-09-19 End: 10-09-19 perflutren lipid microspheres 1.3 mL in NaCl (PF) 0.9% 10 mL injection (DEFINITY) Start: 05-29-2020 End: 08-28-2021 perflutren lipid microsphere s 1.3 mL in NaCl (PF) 0.9% 10 mL injection (DEFINITY) PHENobarbital 65 mg/ml injec table solution (3 sources) Start: 11-22-2022 End: 11-23-2022 32.5 mg, Intravenous Push, EVERY 12 HOURS, 2 doses, First dose on Tue11/22/22 at 0911, Last dose on Tue11/22/22 at 2111 Start: 11-19-2022 65 mg, Intrave nous Push, EVERY 6 HOURS PRN, Starting on Tue11/19/22 at 1035, Until Discontinued, CIWA 9-12 and SBP greater than 165 mmHg and/or HR greater than 100 beats per minute, or CIWA 13 and above Start: 11-19-2022 End: 11-19-2022 take 1 dose intravenously once 130 mg, Intravenous Pus h, ONCE, 1 dose, On Tue11/19/22 at 0141 pramipexole dihydrochloride 0.125 mg oral tablet (20 sources) Nonergot Dopamine Agonist Start: 04-26-2023 take 1 tablet by mouth once daily at bedtime pramipexole (MIRAPEX) 0.125 mg tablet Take 1 tablet by mouth daily at bedtime. 30 tablet 5 04/26/2023 Active Start: 05-22-2020 End: 05-06-2021 take 1 tablet by mouth once daily Pramipexole (Mirapex) 0.125 mg Tablet Active 0.125 MG PO Daily August 24, 2020 12:00am Comment on above: Take 1 tablet by ramila th once daily. in evening for restless legs. Take 1 tablet by ramila th daily at bedtime. Respiratory Therapy Supplies (CareTouch 2 CPAP Hose Meat Molder) MISC (4 sources) Start: 05-27-2021 Respiratory Therapy Supplies (CareTouch 2 CPAP Hose Meat Molder) [facility] New set up: AutoCPAP 5-15 cm H2O, mask (pt pref), filters, heated humidity & tubing. Lifetime supplies. SUSANNAH G47.33. 05/27/2021 Active Start: 05-27-2021 Respiratory Th erapy Supplies (CareTouch 2 CPAP Hose Meat Molder) [facility] [place] New set up: AutoCPAP 5-15 cm H2O, mask (pt pref), filters, heated humidity & tubing. Lifetime supplies. SUSANNAH G47.33. 0 05/27/2021 Active riboflavin 100 mg oral tablet (20 sources) Start: 08-20-2021 End: 08-20-2022 take 4 tablets by mouth once daily VITAMIN B-2 100 mg tab Take 4 tablets by mouth once daily. 360 tablet 3 08/04/2022 Active Comment on above: Take 4 tablets by mo [facility] once daily. rosuvastatin calcium 5 mg oral tablet (20 sources) HMG-CoA Reductase Inhibitor Start: 10-19-2023 take 1 tablet by mouth at bedtime rosuvastatin (CRESTOR) 5 mg tablet Indications: Hypertriglyceridemia take 1 tablet by mouth at bedtime 90 tablet 3 10/19/2023 Active Start: 09-25-2021 End: 10-21-2022 take 1 tablet by mouth at bedtime rosuvastatin (CRESTOR) 5 mg tablet Indications: Hypertriglyceridemia take 1 tablet by mouth at bedtime 90 tablet 3 10/19/2023 Active Comment on above: Take 1 tablet by ramila th once daily. At bedtime TAKE 1 TABLET BY RAMILA TH AT BEDTIME 0.25 mg, 0.5 mg dose 1.5 ml semaglutide 1.34 mg/ml pen injector (20 sources) Start: 01-24-2023 semaglutide (OZEMPIC) 0.25 mg or 0.5 mg(2 mg/1.5 mL) pen Inject 0.25 mg subcutaneously one time a week. 1.5 mL 01/24/2023 Active Start: 06-30-2022 Semaglutide, 1 MG/DOSE, 2 MG/1.5ML SOPN Inject 0.25 mg under the skin once weekly. 06/30/2022 Active Start: 05-13-2022 End: 09-22-2023 semaglutide (OZEMPIC) 0.25 m g or 0.5 mg(2 mg/1.5 mL) pen Inject 0.25 mg subcutaneously one time a week. 1.5 mL 0 06/30/2022 01/21/2023 Discontinued Comment on above: Inject 0.25 mg subcu taneously one time a week. 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 Inject 1 mL (200 mg) into the shoulder, thigh, or buttocks every 14 (fourteen) days 6 mL 1 03/10/2024 08/25/2024 Active Start: 04-01-2023 End: 03-05-2024 inject 1 mL by intramuscular injection every other week testosterone cypionate (Depo-Testosterone) 200 MG/ML injection inject 1 ml INTRAMUSCULARLY EVERY 2 (TWO) weeks 04/01/2023 03/05/2024 Discontinued (Reorder) Start: 03-18-2022 testosterone c ypionate (DEPOTESTOTERONE CYPIONATE) 200 MG/ML injection Administer 1 ml (200 mg) intramuscularly every 2 weeks 0 03/18/2022 Active Start: 09-06-2019 End: 10-20-2020 testosterone cypionate (DEPO-TESTOSTERONE) 200 mg/mL injection Indications: Hypogonadism in male INJECT 0.5 ml INTRAMUSCULARLY EVERY TEN days. 6 mL 1 10/21/2020 Active Start: 03-12-2017 inject 1 mL by intra muscular injection every other week Testosterone Undecanoate Active 0.5 ML IM EVERY 2 WEEKS March 12, 2017 1:00am Comment on above: INJECT 0.5 ml INTRAM USCULARLY EVERY TEN days. thiamine 100 mg oral tablet (5 sources) Start: 11-26-19 End: 05-24-19 24 take 1 tablet by mouth once daily vitamin B-1 (THIAMINE) 100 MG tablet Take 1 Tablet by mouth daily. 180 Tablet 11/25/2022 Active tiZANidine 4 mg oral tablet (20 sources) Central alpha-2 Adrenergic Agonist Start: 07-02-19 End: 08-09-19 take 1 tablet by mouth twice daily as needed for headache tiZANidine (ZANAFLEX) 4 mg tablet TAKE 1 TABLET BY MOUTH TWICE DAILY NEEDED for headache 30 tablet 08/10/2023 Active Start: 06-22-2022 End: 06-26-2022 take 1 tablet by mouth every six hours as needed for muscle spasms tiZANidine (ZANAFLEX) 4 MG tablet Take 1 tablet by mouth every 6 hours as needed (muscle spasm) 16 tablet 0 06/22/2022 06/26/2022 Active Comment on above: Take 1 tablet by ramila th twice daily as needed (Headache). TAKE 1 TABLET BY RAMILA TH TWICE DAILY NEEDED FOR HEADACHE 24 hr divalproex sodium 500 mg extended release oral tablet (20 sources) Mood Stabilizer, Anti-epileptic Agent Start: End: take 1 tablet by mouth once daily at bedtime divalproex ER (DEPAKOTE ER) 500 mg 24 hr tablet Take 1 tablet by mouth daily at bedtime for 14 days. 14 tablet 0 06/25/2022 12/07/2022 Discontinued (Course of therapy completed) Start: 06-25-2022 Start: 03-02-2022 divalproex ER (DEPAKOTE ER) 500 MG ER tablet Take 500 mg by mouth. 06/25/2022 Active Start: 03-02-2022 End: 03-09-2022 take 1 tablet by mouth once daily at bedtime divalproex ER (DEPAKOTE ER) 500 mg 24 hr tablet Take 1 tablet by mouth daily at bedtime for 7 days. 7 tablet 0 03/02/2022 Active Comment on above: Take 1 tablet by ramila th daily at bedtime for 7 days. Take 1 tablet by ramila th daily at bedtime for 14 days. verapamil hydrochloride 180 mg extended release oral tablet (20 sources) Calcium Channel Janette Start: 03-29-2022 End: 09-02-2022 take 1 tablet by mouth once daily at bedtime verapamil SR (CALAN SR, ISOPTIN SR) 180 mg CR tablet Take 1 tablet by mouth daily at bedtime. 90 tablet 06/04/2022 Active Start: 03-29-2022 take 1 tablet by ramila th every twenty-four hours verapamil (CALAN-SR) 180 MG 24 hour tablet Take 180 mg by mouth. 03/29/2022 Active Start: 03-09-2022 End: 06-07-2022 take 1 tablet by mouth once daily verapamil SR (CALAN SR, ISOPTIN SR) 120 mg CR tablet Take 1 tablet by mouth once daily. 90 tablet 0 03/09/2022 06/07/2022 Active Comment on above: Take 1 tablet by ramila th once daily. Take 1 tablet by ramila th daily at bedtime. vitamin b12 0.5 mg oral tablet (10 sources) Vitamin B12 Start: 11-19-2022 take 1 tablet by mouth in the morning cyanocobalamin (Vitamin B-12) 500 MCG tablet Take 500 mcg by mouth in the morning. 11/23/2022 Active (1 source) Start: 05-27-2021 (7 sources) Start: 11-22-2022 End: 11-25-2022 [Order 1 Start] Name: vitamin B-1 (THIAMINE) tablet Signed Summary: 250 mg, Oral, DAILY, 3 doses, First dose on Tue11/22/22 at 0900, Last dose on Tue11/24/22 at 0900 [Order 1 End] [Order 2 Start] Name: vitamin B-1 (THIAMINE) tablet Signed Summary: 100 mg, Oral, DAILY, First dose on Tue11/25/22 at 0900, Until Discontinued [Order 2 End] Start: 11-20-2022 End: 11-20-2022 take 1 mL intravenously every hour at 175 mL/hr, Intra venous, CONTINUOUS, Starting on Tue11/20/22 at 0100, Until Tue11/20/22 at 1611 Start: 11-19-2022 End: 11-20-2022 take 1 mL intravenously every hour at 200 mL/hr, Intra venous, CONTINUOUS, Starting on Tue11/19/22 at 1500, Until Tue11/20/22 at 0007 Start: 11-19-2022 End: 11-19-2022 take 1 mL intravenously every hour at 175 mL/hr, Intra venous, CONTINUOUS, Starting on Tue11/19/22 at 1400, Until Tue11/19/22 at 1402 Start: 11-19-2022 End: 11-19-2022 take 1 mL intravenously every hour at 150 mL/hr, Intra venous, CONTINUOUS, Starting on Tue11/19/22 at 1300, Until Tue11/19/22 at 1323 Start: 11-19-2022 End: 11-19-2022 take 1 mL intravenously every hour at 150 mL/hr, Intra venous, CONTINUOUS, Starting on Tue11/19/22 at 0730, Until Tue11/19/22 at 1221 Start: 11-19-2022 End: 11-20-2022 take 4 [IU] intravenously every hour, then take 4 mL intravenously every hour 4 Units/hr (4 mL/hr), Intravenous, CONTINUOUS, Starting on Tue11/19/22 at 0730, Until Tue11/20/22 at 1611 Completed/Discontinued Medications Medication Drug Class(es) Dates Sig (Normalized) Sig (Original) acetaminophen 325 mg oral tablet (1 source) Start: 11-19-2022 take 650 mg by mouth every six hours 650 mg, Oral, Every 6 hours, First dose on Tue11/19/22 at 1200, Until Discontinued atorvastatin 40 mg oral tablet (20 sources) HMG-CoA Reductase Inhibitor Start: 11-20-2022 take 40 mg by mouth once daily 40 mg, Oral, DAILY, First dose (after last modification) on Tue11/20/22 at 0900, Until Discontinued Start: 11-19-2022 End: 11-19-2022 take 10 mg by mouth once daily 10 mg, Oral, DAILY, Fir st dose on Tue11/19/22 at 0900, Until Discontinued Start: 05-16-2019 End: 10-21-2022 take 1 tablet by mouth once daily atorvastatin (LIPITOR) 40 mg tablet Take 1 tablet by mouth once daily. 90 tablet 3 05/16/2019 08/20/2021 Discontinued Start: 03-12-2017 take 40 mg by mouth at bedtime Atorvastatin Active 40 MG PO Bedtime March 12, 2017 1:00am Comment on above: Take 1 tablet by ramila th once daily. betamethasone 3 mg/ml / betamethasone acetate 3 mg/ml injectable suspension (4 sources) Corticosteroid Start: 08-10-2023 End: 08-10-2023 betamethasone acetate-betamethasone sodium phosphate 6 mg injection (CELESTONE) Start: 09-09-2021 End: 09-09-2021 betamethasone acetate-betame thasone sodium phosphate 6 mg injection (CELESTONE) Start: 09-09-2021 End: 09-09-2021 betamethasone acetate-betame thasone sodium phosphate 6 mg injection (CELESTONE) calcium chloride 0.0014 meq/ml / potassium chloride 0.004 meq/ml / sodium chloride 0.103 meq/ml / sodium lactate 0.028 meq/ml injectable solution (3 sources) Start: 11-18-2022 End: 11-19-2022 Intravenous, at 200 mL/hr, CONTINUOUS, Starting on Tue11/19/22 at 0230, Until Tue11/19/22 at 0648 cephalexin 500 mg oral capsule (20 sources) Cephalosporin Antibacterial Start: 11-21-2022 End: 11-27-2022 take 1 capsule by mouth four times daily cephALEXin (KEFLEX) 500 MG capsule Take 1 Capsule by mouth 4 times daily for 17 doses. 17 Capsule 0 11/22/2022 11/27/2022 Start: 02-09-2022 End: 12-07-2022 take 1 capsule by mouth three times daily cephALEXin (KEFLEX) 500 mg capsule Take 1 capsule by mouth three times daily. 30 capsule 1 02/09/2022 12/07/2022 Discontinued (Course of therapy completed) Start: 03-12-2017 End: 10-12-2017 take 1 capsule by mouth twice daily Cephalexin (Keflex) 500 mg capsule Discontinued 500 MG PO Twice daily 20 March 12, 2017 1:00am October 12, 2017 8:44pm Comment on above: Take 1 capsule by [facility] three times daily. 1 ml dexamethasone phosphate 4 mg/ml injection (2 sources) Corticosteroid Start: 03-13-2024 End: 03-13-2024 dexAMETHasone sodium phosphate 4 mg injection (DECADRON) Start: 03-13-2024 End: 03-13-2024 4 mg, Injection - FOR ORTHO USE ONLY, ONCE, 1 dose, Starting on Tue03/13/24 at 1534, Until Tue03/13/24 at 1534 100 ml dexmedetomidine 0.004 mg/ml injection (1 source) Central alpha-2 Adrenergic Agonist Start: 11-19-2022 End: 11-19-2022 take 4.9-34.1 mL intravenously every hour 0.2-1.4 mcg/kg/hr 97.4 kg (4.87-34.09 mL/hr, rounded to 4.9-34.1 mL/hr), Intravenous, CONTINUOUS, Starting on Tue11/19/22 at 0500, Until Tue11/19/22 at 1207 2 ml diazePAM 5 mg/ml prefilled syringe (1 source) Benzodiazepine Start: 11-19-2022 End: 11-19-2022 10 mg, Intravenous Push, EVERY 2 HOURS PRN, Starting on Tue11/19/22 at 0234, Until Tue11/19/22 at 1036, CIWA 9-12 and SBP greater than 165 mmHg and/or HR greater than 100 beats per minute, or CIWA 13 and above docusate sodium 100 mg oral capsule (1 source) Start: 11-19-2022 End: 11-21-2022 take 100 mg by mouth twice daily 100 mg, Oral, 2 TIMES DAILY, First dose on Tue11/19/22 at 0146, Until Discontinued Drug or medicament (substance) (3 sources) Start: 11-20-2022 End: 11-20-2022 15 mmol, Intravenous, ONCE, 1 dose, On Tue11/20/22 at 0330 Start: 11-19-2022 End: 11-19-2022 15 mmol, Intravenous, EVERY 2 HOURS X 2 DOSES, 2 doses, First dose (after last modification) on Tue11/19/22 at 0730, Last dose on Tue11/19/22 at 0930 Start: 11-05-2021 0.4 ml enoxaparin sodium 100 mg/ml prefilled syringe (1 source) Low Molecular Weight Heparin Start: 11-19-2022 End: 11-21-2022 inject 40 mg by subcutaneous injection once daily 40 mg, Subcutaneous, DAILY, First dose on Tue11/19/22 at 0900, Until Discontinued esomeprazole 40 mg injection (2 sources) Proton Pump Inhibitor Start: 11-21-2022 take 40 mg intravenously twice daily 40 mg, Intravenous Push, 2 TIMES DAILY, First dose on Tue11/21/22 at 1500, Until Discontinued Start: 11-19-2022 End: 11-21-2022 take 40 mg by mouth once daily 40 mg, Oral, DAILY, Fir st dose on Tue11/19/22 at 0900, Until Discontinued famotidine 20 mg oral tablet (1 source) Histamine-2 Receptor Antagonist Start: 11-20-2022 take 20 mg by mouth twice daily 20 mg, Oral, 2 TIMES DAILY, First dose on 11/20/22 at 1230, Until Discontinued 1 ml hydrALAZINE hydrochloride 20 mg/ml injection (1 source) Arteriolar Vasodilator Start: 11-19-2022 End: 11-21-2022 take 20 mg intravenously every six hours as needed 20 mg, Intravenous Push, EVERY 6 HOURS PRN, Starting on Tue11/19/22 at 0223, Until 11/21/22 at 1139, Other, For SBP>170 HYDROmorphone hydrochloride 2 mg oral tablet (1 source) Opioid Agonist Start: 11-20-2022 End: 11-20-2022 take 1 dose by mouth once 2 mg, Oral, ONCE, 1 dose, On 11/20/22 at 1800 Start: 11-20-2022 End: 11-20-2022 take 1 dose by mouth once 2 mg, Oral, ONCE, 1 dose, On 11/20/22 at 1800 6 ml hylan g-f 20 8 mg/ml prefilled syringe (1 source) Start: 12-04-2021 End: 12-04-2021 hylan G-F 20 48 mg/6 mL 48 m g injection (SYNVISC-ONE) Start: 12-04-2021 End: 12-04-2021 hylan G-F 20 48 mg/6 mL 48 m g injection (SYNVISC-ONE) 1 ml ketorolac tromethamine 15 mg/ml cartridge (5 sources) Nonsteroidal Anti-inflammatory Drug, Cyclooxygenase Inhibitor Start: 11-19-2022 End: 11-21-2022 take 15 mg intravenously every six hours as needed for pain 15 mg, Intravenous Push, EVERY 6 HOURS PRN, Starting on Tue11/19/22 at 1110, Until Tue11/21/22 at 1405, Mild Pain (pain score 1,2,3), Moderate Pain (pain score 4,5,6) Start: 02-06-2018 End: 05-16-2018 Ketorolac Discontinued 10 MG PO As Directed February 06, 2018 12:00am May 16, 2018 5:16pm 10 ml lidocaine hydrochloride 10 mg/ml injection (8 sources) Antiarrhythmic, Amide Local Anesthetic Start: 01-31-2024 End: 01-31-2024 lidocaine (PF) 10 mg/mL (1 %) 0.5 mL injection (XYLOCAINE) Start: 01-31-2024 End: 01-31-2024 0.5 mL, Injection - FOR ORTH O USE ONLY, ONCE, 1 dose, Starting on Tue01/31/24 at 0827, Until Tue01/31/24 at 0827 Start: 08-10-2023 End: 08-10-2023 lidocaine (PF) 10 mg/mL (1 % ) 1 mL injection (XYLOCAINE) Start: 11-19-2022 apply 2 doses transd ermal route every twenty-four hours 2 Patch, Transdermal, EVERY 24 HOURS, First dose on Tue11/19/22 at 1200, Until Discontinued Start: 11-10-2021 End: 11-10-2021 lidocaine (PF) 10 mg/mL (1 % ) 4 mL injection (XYLOCAINE) Start: 09-09-2021 End: 09-09-2021 lidocaine (PF) 10 mg/mL (1 % ) 1 mL injection (XYLOCAINE) Start: 09-09-2021 End: 09-09-2021 lidocaine (PF) 10 mg/mL (1 % ) 1 mL injection (XYLOCAINE) lisinopril 10 mg oral tablet (20 sources) Angiotensin Converting Enzyme Inhibitor Start: 11-07-2019 End: 09-25-2021 take 1 tablet by mouth once daily lisinopril (ZESTRIL, PRINIVIL) 10 mg tablet Take 1 tablet by mouth once daily. 45 tablet 3 11/07/2019 01/08/2021 Discontinued Start: 03-12-2017 take 10 mg by mouth once daily Lisinopril Active 10 MG PO Daily March 12, 2017 1:00am Comment on above: Take 1 tablet by ramila th once daily. 50 ml magnesium sulfate 40 mg/ml injection (2 sources) Start: 11-20-2022 End: 11-20-2022 2 g (2,000 mg), Intravenous, ONCE, 1 dose, On Tue11/20/22 at 0330 Start: 11-19-2022 End: 11-19-2022 4,000 mg, Intravenous, ONCE, 1 dose, On Tue11/19/22 at 0200 metaxalone 800 mg oral tablet (4 sources) Start: 11-07-2017 End: 05-16-2018 take 1 tablet by mouth three times daily Metaxalone (Skelaxin) 800 mg Tablet Discontinued 800 MG PO Three times daily November 07, 2017 12:00am May 16, 2018 5:15pm midazolam 1 mg/ml injectable solution (1 source) Benzodiazepine Start: 11-19-2022 End: 11-19-2022 take 1 dose intravenously once 2 mg, Intravenous Push, ONCE, 1 dose, On Tue11/19/22 at 0055 Start: 11-19-2022 End: 11-19-2022 take 1 dose intravenously once 2 mg, Intravenous Push, ONCE, 1 dose, On Tue11/19/22 at 0055 mupirocin 0.02 mg/mg topical ointment (1 source) RNA Synthetase Inhibitor Antibacterial Start: 11-21-2022 apply 1 dose topically three times daily Topical, 3 TIMES DAILY, First dose on Tue11/21/22 at 1430, Until Discontinued 24 hr nicotine 0.875 mg/hr transdermal system (5 sources) Cholinergic Nicotinic Agonist Start: 11-19-2022 21 mg, Transdermal, DAILY, First dose on Tue11/19/22 at 0230, Until Discontinued Start: 06-19-2019 End: 08-22-2020 apply 1 dose transdermal route every twenty-four hours nicotine (NICODERM CQ) 14 mg/24 hr Indications: Tobacco use disorder Apply 1 Patch as directed every 24 hours. 30 Patch 2 05/22/2020 08/22/2020 Discontinued Start: 06-19-2019 End: 12-27-2019 apply 1 dose transdermal route every twenty-four hours nicotine (NICODERM CQ) 21 mg/24 hr Indications: Tobacco use disorder Apply 1 Patch as directed every 24 hours. 30 Patch 2 06/19/2019 12/27/2019 Discontinued Start: 06-19-2019 End: 12-27-2019 nicotine (NICODERM CQ) 7 mg/ 24 hr Indications: Tobacco use disorder Apply 1 Patch as directed every 24 hours. 30 Patch 11 06/19/2019 12/27/2019 Discontinued Comment on above: Apply 1 Patch as directed every 24 hours . omega-3 fatty acids 1,000 mg cap (20 sources) Start: 09-26-19 End: 12-08-19 take 2 capsules by mouth once daily at bedtime omega-3 fatty acids 1,000 mg cap Indications: Hypertriglyceridemia Take 2 capsules by mouth once daily. At bedtime 60 capsule 1 09/25/2021 12/07/2022 Discontinued (Duplicate Entry) Start: 09-25-2021 take 2 capsules by m outh once daily at bedtime omega-3 fatty acids 1,000 mg cap Indications: Hypertriglyceridemia Take 2 capsules by mouth once daily. At bedtime 60 capsule 1 09/25/2021 Active Start: 09-25-2021 take 2 capsules by m outh once daily at bedtime omega-3 fatty acids 1,000 mg cap Take 2 capsules by mouth once daily. At bedtime 60 capsule 1 09/25/2021 Active Comment on above: Take 2 capsules by m outh once daily. At bedtime Imrxe-3-[id number]-EPA-F sean Oil 1,000 mg (120 mg-180 mg) cap (20 sources) Start: 11-05-2021 End: 12-07-2022 take 2 capsules by mouth once daily at bedtime Oyhny-6-FZC-EPA-Fish Oil 1,000 mg (120 mg-180 mg) cap TAKE 2 CAPSULES BY MOUTH once DAILY AT BEDTIME 60 capsule 11 11/05/2021 12/07/2022 Discontinued (Duplicate Entry) Start: 11-05-2021 take 2 capsules by m outh once daily at bedtime Lrznm-0-VOZ-EPA-Fish Oil 1,000 mg (120 mg-180 mg) cap TAKE 2 CAPSULES BY MOUTH once DAILY AT BEDTIME 60 capsule 11 11/05/2021 Active Comment on above: TAKE 2 CAPSULES BY M OUTH once DAILY AT BEDTIME oxyCODONE hydrochloride 5 mg oral tablet (20 sources) Opioid Agonist Start: End: take 1 tablet by mouth every six hours as needed for pain oxyCODONE IR (ROXICODONE) 5 mg immediate release tablet Indications: Post-operative state , Other specified injury of extensor muscle, fascia and tendon of left thumb at wrist and hand level, initial encounter Take 1 tablet by mouth every 6 hours as needed for pain. for pain. 20 tablet 12/29/2022 11/09/2023 Discontinued Start: 11-21-2022 End: 11-21-2022 take 1 dose by mouth once 2.5 mg, Oral, Once, 1 dose, On 11/21/22 at 1800 Start: 11-21-2022 End: 11-21-2022 take 1 dose by mouth once 2.5 mg, Oral, Once, 1 dose, On 11/21/22 at 1730 Start: 11-20-2022 5 mg, Oral, EV EDNA 12 HOURS PRN, Starting on 11/20/22 at 0900, Until Discontinued, Severe Pain (pain score 7,8,9,10) Start: 11-19-2022 End: 11-20-2022 5 mg, Oral, EVERY 8 HOURS DC N, Starting on Tue11/19/22 at 1404, Until 11/20/22 at 0847, Severe Pain (pain score 7,8,9,10) Start: 09-20-2022 End: 09-27-2022 take 1 tablet by mouth every six hours as needed for pain oxyCODONE (ROXICODONE) 5 MG immediate release tablet Indications: Primary osteoarthritis of left hip Take 1 tablet by mouth every 6 hours as needed for Pain for up to 7 days. Intended supply: 3 days. Take lowest dose possible to manage pain Max Daily Amount: 20 mg 28 tablet 0 09/20/2022 09/27/2022 Active Start: 07-05-2022 End: 07-12-2022 take 1 tablet by mouth twice daily oxyCODONE (ROXICODONE) 5 MG immediate release tablet Indications: Status post total hip replacement, left Take 1 tablet by mouth 2 times daily for 7 days. Intended supply: 7 days. Take lowest dose possible to manage pain Max Daily Amount: 10 mg 14 tablet 0 07/05/2022 07/12/2022 Active Start: 06-22-2022 End: 06-29-2022 take 1 tablet by mouth every six hours as needed for pain oxyCODONE (ROXICODONE) 5 MG immediate release tablet Indications: Acute postoperative pain Take 1 tablet by mouth every 6 hours as needed for Pain for up to 7 days. Max Daily Amount: 20 mg 28 tablet 0 06/22/2022 06/29/2022 Active Start: 02-06-2018 End: 05-16-2018 Oxycodone Discontinued 5 MG PO As Directed February 06, 2018 12:00am May 16, 2018 5:04pm Comment on above: Take 1 tablet by ramila th every 6 hours as needed for pain. for pain. polyethylene glycol 3350 25323 mg powder for oral solution (1 source) Osmotic Laxative Start: 11-19-2022 17 g, Oral, DAILY, First dose on Tue11/19/22 at 0900, Until Discontinued potassium chloride 1.33 meq/ml oral solution (4 sources) Start: 11-20-2022 End: 11-20-2022 take 1 dose by mouth once 40 mEq, Oral, ONCE, 1 dose, On 11/20/22 at 1630 Start: 11-19-2022 End: 11-20-2022 take 1 dose by mouth once 40 mEq, Oral, ONCE, 1 dose, On 11/20/22 at 0330 predniSONE 10 mg oral tablet (4 sources) Start: 11-07-2017 End: 02-06-2018 take 60 mg by mouth once daily at mealtime Prednisone Discontinued 60 MG PO Daily November 07, 2017 12:00am February 06, 2018 10:40pm administer with food or milk RABEprazole sodium 20 mg delayed release oral tablet (6 sources) Proton Pump Inhibitor Start: 07-18-2019 End: 05-11-2021 take 1 tablet by mouth once daily RABEprazole (ACIPHEX) 20 mg tablet Indications: Gastroesophageal reflux disease without esophagitis Take 1 tablet by mouth once daily. 30 tablet 11 07/18/2019 05/11/2021 Discontinued Comment on above: Take 1 tablet by ramila once daily. 20 ml ropivacaine hydrochloride 5 mg/ml injection (2 sources) Amide Local Anesthetic Start: 03-13-2024 End: 03-13-2024 ROPivacaine (PF) 5 mg/mL (0.5 %) 0.5 mL injection (NAROPIN) Start: 03-13-2024 End: 03-13-2024 0.5 mL, Injection - FOR ORTH O USE ONLY, ONCE, 1 dose, Starting on Tue03/13/24 at 1534, Until Tue03/13/24 at 1534 sennosides, detention 8.6 mg oral tablet (1 source) Start: 11-21-2022 take 8.6 mg by mouth at bedtime 8.6 mg, Oral, AT BEDTIME, First dose on 11/21/22 at 2200, Until Discontinued sertraline 100 mg oral tablet (4 sources) Serotonin Reuptake Inhibitor Start: 03-12-2017 End: 10-12-2017 take 1 tablet by mouth once daily Sertraline (Zoloft) 100 mg Tablet Discontinued 100 MG PO Daily March 12, 2017 1:00am October 12, 2017 8:45pm sildenafil 100 mg oral tablet (1 source) Phosphodiesterase 5 Inhibitor Start: 01-10-2020 End: 08-22-2020 sildenafil (VIAGRA) 100 mg tablet Take 100 mg by mouth as needed. 0 01/10/2020 08/22/2020 Discontinued Comment on above: Take 100 mg by mouth as needed. sucralfate 1000 mg oral tablet (1 source) Aluminum Complex Start: 07-23-2019 End: 02-22-2020 take 1 tablet by mouth four times daily 1 hour(s) before bedtime sucralfate (CARAFATE) 1 gram tablet Indications: Gastroesophageal reflux disease without esophagitis Take 1 tablet by mouth four times daily. Take 1 hour before meals and at bedtime. 56 tablet 07/23/2019 02/22/2020 Discontinued traMADol hydrochloride 50 mg oral tablet (11 sources) Opioid Agonist Start: 11-21-2023 End: 12-16-2023 traMADol (ULTRAM) 50 mg tablet Start: 11-09-2023 End: 11-16-2023 take 1 tablet by mouth every eight hours as needed for pain traMADol (ULTRAM) 50 mg tablet Indications: Primary arthrosis of first carpometacarpal joints, bilateral Take 1 tablet by mouth every 8 hours as needed for pain for up to 7 days. 21 tablet 0 11/09/2023 11/16/2023 Active Start: 10-24-2023 End: 10-31-2023 take 1 tablet by mouth every eight hours as needed for pain traMADol (ULTRAM) 50 mg tablet Indications: Primary arthrosis of first carpometacarpal joints, bilateral Take 1 tablet by mouth every 8 hours as needed for pain for up to 7 days. 21 tablet 0 10/24/2023 10/31/2023 Active 1 ml triamcinolone acetonide 40 mg/ml injection (3 sources) Corticosteroid Start: 01-31-2024 End: 01-31-2024 triamcinolone acetonide 20 mg injection (KeNALog 40) Start: 01-31-2024 End: 01-31-2024 20 mg, Injection - FOR ORTHO USE ONLY, ONCE, 1 dose, Starting on Tue01/31/24 at 0827, Until Tue01/31/24 at 0827 Start: 11-10-2021 End: 11-10-2021 triamcinolone acetonide 40 m g injection (KeNALog 40) (1 source) Start: 11-20-2022 take 1 tablet by ramila once daily 1 Tablet, Oral, DAILY, First dose on Tue11/20/22 at 0900, Until Discontinued (1 source) Start: 11-19-2022 End: 11-19-2022 take 5 mL intravenously every hour 5 mg/hr (5 mL/hr), Intravenous, CONTINUOUS, Starting on Tue11/19/22 at 0019, Until Tue11/19/22 at 0115 (1 source) Start: 11-18-2022 End: 11-18-2022 take 1 dose intravenously once 100 mL, Intravenous Push, Once at Radiology exam, 1 dose, Starting on Tue11/18/22 at 2322, Until Yesi 11/18/22 at 2322, Imaging Protocol Orders Problems Active Problems Problem Classification Problem Date Documented Date Episodic/Chronic Acquired foot deformities (1 source) Toe joint rigid; Translations: [Hallux rigidus, right foot] 03-13-2024 Chronic Acquired foot deformities (1 source) Metatarsophalangeal joint stiff; Translations: [Other deformities of toe(s) (acquired), right foot] Episodic Acute myocardial infarction (20 sources) Acute myocardial infarction; Translations: [Acute myocardial infarction, unspecified] Onset: 0 03-05-2020 Chronic Alcohol-related disorders (20 sources) Alcohol abuse; Translations: [Alcohol abuse, uncomplicated] Onset: 3 Chronic Anxiety disorders (20 sources) Anxiety; Translations: [Anxiety disorder, unspecified] Onset: 7 01-07-2017 Chronic Coronary atherosclerosis and other heart disease (20 sources) Coronary atherosclerosis; Translations: [Atherosclerotic heart disease of [place] coronary artery with other forms of angina pectoris] Onset: 7 08-30-2016 Chronic Crushing injury or internal injury (3 sources) Injury of pancreas; Translations: [Unspecified injury of unspecified part of pancreas, initial encounter] Onset: 3 11-18-2022 Episodic Delirium, dementia, and amnestic and other cognitive disorders (2 sources) Postconcussion syndrome; Translations: [Postconcussional syndrome] Chronic Disorders of lipid metabolism (20 sources) Mixed hyperlipidemia; Translations: [Mixed hyperlipidemia] Onset: 7 08-30-2016 Chronic E Codes: Fall (6 sources) Fall; Translations: [Unspecified fall, initial encounter] 10-15-2018 Episodic Esophageal disorders (20 sources) Gastroesophageal reflux disease; Translations: [Gastro-esophageal reflux disease without esophagitis] Onset: 0 03-05-2020 Chronic Essential hypertension (20 sources) Hypertensive disorder; Translations: [Essential (primary) hypertension] Onset: 8 01-31-2018 Chronic Fluid and electrolyte disorders (2 sources) Hyponatremia; Translations: [Hypo-osmolality and hyponatremia] 11-18-2022 Episodic Headache; including migraine (2 sources) Chronic post-traumatic headache; Translations: [Chronic post-traumatic headache, not intractable] Chronic Headache; including migraine (12 sources) Headache; Translations: [Post-traumatic headache, unspecified, not intractable] Episodic Miscellaneous mental health disorders (1 source) Primary insomnia; Translations: [Primary insomnia] 09-19-2023 Chronic Nutritional deficiencies (20 sources) Vitamin D deficiency; Translations: [Vitamin D deficiency, unspecified] Onset: 1 07-21-2010 Chronic Occlusion or stenosis of precerebral arteries (1 source) Right carotid artery stenosis; Translations: [Occlusion and stenosis of right carotid artery] Chronic Open wounds of extremities (5 sources) Laceration of left thumb; Translations: [Laceration without foreign body of left thumb without damage to nail, initial encounter] 03-12-2017 Episodic Open wounds of head; neck; and trunk (4 sources) Scalp laceration; Translations: [Laceration without foreign body of scalp, initial encounter] 07-21-2020 Episodic Osteoarthritis (20 sources) Lower limb joint arthritis; Translations: [Unilateral primary osteoarthritis, unspecified hip] Onset: 5 01-29-2015 Chronic Other aftercare (5 sources) Surgical follow-up; Translations: [Encounter for follow-up examination after completed treatment for conditions other than malignant neoplasm] Episodic Other and unspecified benign neoplasm (2 sources) History of polyp of colon; Translations: [Personal history of colonic polyps] Episodic Other bone disease and musculoskeletal deformities (20 sources) Idiopathic kyphoscoliosis; Translations: [Other idiopathic scoliosis, site unspecified] Onset: 8 10-26-2017 Chronic Other circulatory disease (1 source) Feeling of lump in throat; Translations: [Other specified symptoms and signs involving the circulatory and respiratory systems] Episodic Other circulatory disease (4 sources) Elevated blood pressure; Translations: [Elevated blood-pressure reading, without diagnosis of hypertension] 05-05-2020 Episodic Other connective tissue disease (14 sources) History of total hip arthroplasty; Translations: [Presence of left artificial hip joint] Onset: 3 06-21-2022 Chronic Other connective tissue disease (3 sources) Presence of left artificial hip joint; Translations: [Presence of left artificial hip joint] Onset: 3 Chronic Other connective tissue disease (3 sources) Pain in right foot; Translations: [Pain in right foot] Episodic Other connective tissue disease (2 sources) Psoas tendinitis, left hip; Translations: [Psoas tendinitis, left hip] Onset: 3 Episodic Other connective tissue disease (2 sources) Iliotibial band syndrome, left leg; Translations: [Iliotibial band syndrome, left leg] Onset: 3 Episodic Other connective tissue disease (1 source) Calcaneal spur; Translations: [Calcaneal spur, unspecified foot] 01-18-2023 Episodic Other connective tissue disease (1 source) Plantar fasciitis; Translations: [Plantar fascial fibromatosis] 01-18-2023 Episodic Other connective tissue disease (1 source) Pain in thumb ; Translations: [Pain in unspecified finger(s)] 10-24-2023 Episodic Other connective tissue disease (14 sources) Pain in left thumb; Translations: [Pain in left finger(s)] Onset: 4 01-31-2024 Episodic Other connective tissue disease (1 source) Pain of bilateral hands; Translations: [Pain in right hand] 05-15-2020 Episodic Other connective tissue disease (1 source) Pain of toe of right foot; Translations: [Pain in right toe(s)] 02-29-2024 Episodic Other connective tissue disease (1 source) Pain in right toe(s); Translations: [Pain in toe of right foot] Onset: 4 Episodic Other endocrine disorders (20 sources) Male hypogonadism; Translations: [Testicular hypofunction] Onset: 5 07-09-2014 Chronic Other endocrine disorders (1 source) Hypopituitarism; Translations: [Hypopituitarism] Onset: 3 Chronic Other eye disorders (20 sources) Bilateral vitreous floaters; Translations: [Other vitreous opacities, bilateral] Onset: 8 08-25-2017 Chronic Other eye disorders (20 sources) Asteroid hyalosis of right eye; Translations: [Crystalline deposits in vitreous body, right eye] Onset: 8 08-25-2017 Chronic Other gastrointestinal disorders (2 sources) Swallowing painful; Translations: [Dysphagia, unspecified] Episodic Other gastrointestinal disorders (2 sources) Oropharyngeal dysphagia; Translations: [Dysphagia, oropharyngeal phase] Episodic Other injuries and conditions due to external causes (6 sources) Closed injury of head; Translations: [Unspecified injury of head, initial encounter] 08-24-2020 Episodic Other injuries and conditions due to external causes (1 source) Personal history of other (healed) physical injury and trauma; Translations: [Personal history of other injury] 01-18-2023 Episodic Other liver diseases (7 sources) Steatosis of liver; Translations: [Fatty (change of) liver, not elsewhere classified] Onset: 3 11-22-2022 Chronic Other lower respiratory disease (13 sources) Dyspnea; Translations: [Shortness of breath] Episodic Other lower respiratory disease (1 source) Abnormal breathing; Translations: [Unspecified abnormalities of breathing] Episodic Other nervous system disorders (20 sources) Cognitive deficit in communication skills; Translations: [Cognitive communication deficit] Onset: 1 11-17-2020 Chronic Other nervous system disorders (1 source) Chronic pain syndrome; Translations: [Chronic pain syndrome] Chronic Other nervous system disorders (20 sources) Chronic pain; Translations: [Other chronic pain] Onset: 1 Resolved: 0 12-27-2019 Chronic Other nervous system disorders (1 source) Postoperative pain ; Translations: [Other acute postprocedural pain] 05-23-2020 Episodic Other non-traumatic joint disorders (2 sources) Hip pain; Translations: [Pain in unspecified hip] Episodic Other non-traumatic joint disorders (14 sources) Pain of left wrist; Translations: [Pain in left wrist] Onset: 4 01-31-2024 Episodic Other non-traumatic joint disorders (14 sources) Limitation of joint movement; Translations: [Stiffness of unspecified joint, not elsewhere classified] Onset: 4 01-31-2024 Episodic Other non-traumatic joint disorders (2 sources) Acute ankle pain; Translations: [Pain in right ankle and joints of right foot] 02-03-2024 Episodic Other nutritional; endocrine; and metabolic disorders (20 sources) Obese class I; Translations: [Obesity, unspecified] Onset: 2 Chronic Other nutritional; endocrine; and metabolic disorders (1 source) Obesity; Translations: [Obesity, unspecified] Chronic Other nutritional; endocrine; and metabolic disorders (2 sources) Weight gain; Translations: [Abnormal weight gain] Episodic Other nutritional; endocrine; and metabolic disorders (1 source) Body mass index 25-29 - overweight; Translations: [Overweight] Episodic Other screening for suspected conditions (not mental disorders or infectious disease) (2 sources) Carotid artery finding; Translations: [Abnormal findings on diagnostic imaging of other specified body structures] Chronic Other upper respiratory disease (2 sources) Hoarse; Translations: [Dysphonia] Episodic Other upper respiratory disease (2 sources) Loss of voice; Translations: [Aphonia] Episodic Other upper respiratory disease (2 sources) Dysphonia; Translations: [Dysphonia] Episodic Other upper respiratory disease (1 source) Lesion of vocal cord; Translations: [Other diseases of vocal cords] Episodic Other upper respiratory disease (1 source) Singers' nodes; Translations: [Nodules of vocal cords] Episodic Pancreatic disorders (not diabetes) (2 sources) Chronic pancreatitis; Translations: [Other chronic pancreatitis] 11-26-2022 Chronic Peritonitis and intestinal abscess (3 sources) Peritonitis; Translations: [Peritonitis, unspecified] Onset: 3 11-18-2022 Episodic Residual codes; unclassified (20 sources) Sleep apnea; Translations: [Sleep apnea, unspecified] Onset: 2 Chronic Residual codes; unclassified (1 source) Sleep apnea, unspecified; Translations: [Sleep apnea, unspecified type] Onset: 2 Chronic Residual codes; unclassified (2 sources) Congestion of throat; Translations: [Other general symptoms and signs] Episodic Residual codes; unclassified (6 sources) Pain; Translations: [Pain, unspecified] Episodic Residual codes; unclassified (1 source) Tobacco use and exposure - finding; Translations: [Tobacco use] Episodic Spondylosis; intervertebral disc disorders; other back problems (20 sources) Degeneration of lumbar intervertebral disc; Translations: [Other intervertebral disc degeneration, lumbar region] Onset: 8 10-26-2017 Chronic Substance-related disorders (20 sources) Opioid dependence; Translations: [Opioid dependence, uncomplicated] Onset: 1 10-19-2010 Chronic Superficial injury; contusion (4 sources) Corneal abrasion; Translations: [Injury of conjunctiva and corneal abrasion without foreign body, unspecified eye, initial encounter] 07-21-2020 Episodic Unclassified (1 source) Contusion of unspecified part of pancreas, initial encounter; Translations: [Contusion of unspecified part of pancreas, initial encounter] Onset: 3 Unclassified (1 source) Pain in left hip; Translations: [Pain in left hip] Onset: 3 Unclassified (1 source) NO SHOW 12-29-2022 Viral infection (1 source) Viral disease; Translations: [Viral infection, unspecified] Episodic Past or Other Problems Problem Classification Problem Date Documented Date Episodic/Chronic Acquired foot deformities (20 sources) Acquired hallux limitus of left great toe; Translations: [Other deformities of toe(s) (acquired), left foot] Onset: 03-05-2020 03-05-2020 Episodic Cardiac dysrhythmias (20 sources) Palpitations; Translations: [Palpitations] Onset: 06-14-2016 06-14-2016 Episodic Conditions associated with dizziness or vertigo (20 sources) Dizziness; Translations: [Dizziness and giddiness] Onset: 06-24-2016 06-24-2016 Episodic Inflammatory conditions of male genital organs (20 sources) Epididymitis; Translations: [Epididymitis] Onset: 08-01-2019 08-01-2019 Episodic Intracranial injury (20 sources) Concussion with loss of consciousness; Translations: [Concussion with loss of consciousness of unspecified duration, initial encounter] Onset: 11-17-2020 11-17-2020 Episodic Joint disorders and dislocations; trauma-related (20 sources) Tear of medial meniscus of knee; Translations: [Other tear of medial meniscus, current injury, unspecified knee, initial encounter] Onset: 02-15-2017 03-15-2017 Episodic Nonspecific chest pain (20 sources) Chest pain; Translations: [Chest pain, unspecified] Onset: 06-30-2015 06-30-2015 Episodic Other and unspecified benign neoplasm (20 sources) Benign neoplastic disease; Translations: [Benign neoplasm, unspecified site] Onset: 09-26-2014 09-26-2014 Episodic Other connective tissue disease (20 sources) Myofascial pain syndrome; Translations: [Myalgia, other site] Onset: 10-19-2010 10-19-2010 Episodic Other connective tissue disease (20 sources) Fibromyalgia; Translations: [Fibromyalgia] Onset: 01-29-2015 01-29-2015 Episodic Other connective tissue disease (20 sources) Disorder of Achilles tendon; Translations: [Other specified disorders of synovium and tendon, other site] Onset: 11-22-2018 11-22-2018 Episodic Other connective tissue disease (20 sources) Left achilles tendonitis; Translations: [Achilles tendinitis, left leg] Onset: 11-22-2018 11-22-2018 Episodic Other connective tissue disease (20 sources) Enthesopathy of foot region; Translations: [Other enthesopathies, not elsewhere classified] Onset: 11-22-2018 11-22-2018 Episodic Other connective tissue disease (20 sources) Achillodynia; Translations: [Achilles tendinitis, unspecified leg] Onset: 11-22-2018 11-22-2018 Episodic Other connective tissue disease (20 sources) Calcium deposits in tendon; Translations: [Other synovitis and tenosynovitis, unspecified site] Onset: 11-22-2018 11-22-2018 Episodic Other connective tissue disease (20 sources) Pain of toe of left foot; Translations: [Pain in left toe(s)] Onset: 03-05-2020 03-05-2020 Episodic Other connective tissue disease (1 source) Fibromyalgia; Translations: [Fibromyalgia] Onset: 01-29-2015 Episodic Other connective tissue disease (20 sources) Pain in both feet; Translations: [Pain in right foot] Onset: 12-11-2014 Resolved: 03-21-2018 01-18-2023 Episodic Other connective tissue disease (1 source) Pain in unspecified finger(s); Translations: [Thumb pain, unspecified laterality] Onset: 10-24-2023 Episodic Other endocrine disorders (20 sources) Hypotestosteronism; Translations: [Endocrine disorder, unspecified] Onset: 05-21-2013 05-21-2013 Episodic Other injuries and conditions due to external causes (20 sources) Other specified injury of extensor muscle, fascia and tendon of left thumb at wrist and hand level, initial encounter; Translations: [Other specified injury of extensor muscle, fascia and tendon of left thumb at wrist and hand level, initial encounter] Onset: 12-06-2022 12-06-2022 Episodic Other lower respiratory disease (20 sources) Nodule of lung; Translations: [Solitary pulmonary nodule] Onset: 03-05-2020 03-05-2020 Episodic Other lower respiratory disease (5 sources) Cough; Translations: [Cough] Onset: 12-11-2021 Episodic Other lower respiratory disease (1 source) Shortness of breath; Translations: [SOB (shortness of breath)] Onset: 02-26-2022 Episodic Other male genital disorders (20 sources) Mass of epididymis; Translations: [Other specified disorders of the male genital organs] Onset: 09-04-2014 09-04-2014 Episodic Other male genital disorders (20 sources) Pain in testicle; Translations: [Testicular pain, unspecified] Onset: 08-01-2019 08-01-2019 Episodic Other non-traumatic joint disorders (20 sources) Shoulder pain; Translations: [Pain in right shoulder] Onset: 12-11-2014 07-09-2020 Episodic Other non-traumatic joint disorders (20 sources) Pain in right shoulder; Translations: [Pain in joint, shoulder region] Onset: 12-11-2014 07-09-2020 Episodic Other non-traumatic joint disorders (20 sources) Multiple joint pain; Translations: [Pain in unspecified joint] Onset: 12-11-2014 Resolved: 03-21-2018 03-21-2018 Episodic Other screening for suspected conditions (not mental disorders or infectious disease) (20 sources) Patient encounter status; Translations: [Encounter for screening for malignant neoplasm of colon] Onset: 10-19-2016 10-19-2016 Episodic Other skin disorders (20 sources) Sebaceous cyst of skin; Translations: [Sebaceous cyst] Onset: 06-24-2020 06-24-2020 Episodic Pancreatic disorders (not diabetes) (14 sources) Traumatic acute pancreatitis; Translations: [Other acute pancreatitis without necrosis or infection] Onset: 11-18-2022 11-18-2022 Episodic Residual codes; unclassified (20 sources) History of arthroscopic procedure on shoulder; Translations: [Other specified postprocedural states] Onset: 01-30-2019 01-30-2019 Episodic Residual codes; unclassified (20 sources) Postoperative state; Translations: [Other specified postprocedural states] Onset: 01-03-2020 01-03-2020 Episodic Residual codes; unclassified (1 source) Pain, unspecified; Translations: [Pain] Onset: 12-11-2021 Episodic Residual codes; unclassified (2 sources) Other specified postprocedural states; Translations: [Post-operative state] Onset: 01-03-2020 Episodic Spondylosis; intervertebral disc disorders; other back problems (20 sources) Radicular pain; Translations: [Radiculopathy, site unspecified] Onset: 07-21-2010 05-16-2018 Episodic Sprains and strains (20 sources) Rupture of left Achilles tendon; Translations: [Strain of left Achilles tendon, initial encounter] Onset: 11-22-2018 11-22-2018 Episodic Substance-related disorders (20 sources) Misuses drugs; Translations: [Other psychoactive substance use, unspecified, uncomplicated] Onset: 10-19-2010 10-19-2010 Episodic Syncope (20 sources) Syncope; Translations: [Syncope and collapse] Onset: 06-14-2016 06-14-2016 Episodic Results Test Name Value Interpretation Reference Range Facility [facility] 03-13-2024 [facility] Office Visit ([facility] ) -- JOSÉ ROJAS ([id number]) 1960 M Date Time Provider Department 03/13/24 1:45 PM GATITO MORGAN During your visit today, we recorded the following information about you: Gatito Morgan V DPNisha 03/13/2024 3:36 PM Signed HPI: José presents for follow-up today. He relates that he is noticing more pain over the right first metatarsophalangeal joint area. He has had a cheilectomy over the area in the past. He relates that he stubbed his foot approximately 2 months ago. He stubbed the right great toe against the floor and it has been is still painful. And he relates the pain is concentrated over the first metatarsophalangeal joint area. He is here today for further evaluation. ROS: Constitutional: denies Nausea/Vominting/Fever. Eyes, Ears, Nose, and Throat: denies blurred vision, difficulty eating or tinnitis. Cardiovascular: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 OUTPATIENT MEDICATIONS Current Outpatient Medications on File Prior to Visit Medication Sig HYDROcodone-acetaminophen (NORCO) 5-325 mg per tablet Take 1 tablet by mouth every 8 hours as needed for pain for up to 7 days. methocarbamol (ROBAXIN) 750 mg tablet Take 1 tablet by mouth three times a day. losartan (COZAAR) 50 mg tablet take 1 tablet by mouth every day metoprolol succinate ER (TOPROL XL) 50 mg 24 hr tablet take 1 tablet by mouth at bedtime rosuvastatin (CRESTOR) 5 mg tablet take 1 tablet by mouth at bedtime naproxen (NAPROSYN) 500 mg tablet TAKE 1 TABLET BY MOUTH TWICE DAILY NEEDED FOR PAIN (TAKE WITH FOOD) pantoprazole DR (PROTONIX) 40 mg tablet take 1 tablet by mouth daily escitalopram oxalate (LEXAPRO) 20 mg tablet TAKE 1 and ONE-HALF TABLETS BY MOUTH DAILY LORazepam (ATIVAN) 0.5 mg Take 1 tablet by mouth daily at bedtime for 180 days. tiZANidine (ZANAFLEX) 4 mg tablet TAKE 1 TABLET BY MOUTH TWICE DAILY NEEDED for headache omega 9-mad-uol-fish oil 300 mg (120 mg- 180mg)-1,000 mg cap take 2 capsules by mouth at bedtime VITAMIN D 25 mcg (1,000 unit) tab tablet take 1 tablet by mouth daily pramipexole (MIRAPEX) 0.125 mg tablet Take 1 tablet by mouth daily at bedtime. semaglutide (OZEMPIC) 0.25 mg or 0.5 mg(2 mg/1.5 mL) pen Inject 0.25 mg subcutaneously one time a week. acamprosate DR (CAMPRAL) 333 mg tablet Take 2 tablets by mouth three times daily. VITAMIN B-2 100 mg tab Take 4 tablets by mouth once daily. verapamil SR (CALAN SR, ISOPTIN SR) 180 mg CR tablet Take 1 tablet by mouth daily at bedtime. galcanezumab-gnlm (EMGALITY PEN) 120 mg/mL pen Inject 1 mL subcutaneously once every month. Do not shake. Start after completing 240mg loading dose. Ascorbic Acid 1,000 mg tablet TAKE 1 TABLET BY MOUTH DAILY aspirin, enteric coated (ECOTRIN LOW STRENGTH) 81 mg EC tablet Take 1 tablet by mouth once daily. (Patient not taking: Reported on 11/29/2023) fluticasone (FLONASE) 50 mcg/actuation nasal spray use 2 (TWO) sprays IN EACH NOSTRIL DAILY AT BEDTIME CPAP New set up: AutoCPAP 5-15 cm H2O, mask (pt pref), filters, heated humidity AND tubing. Lifetime supplies. SUSANNAH G47.33. testosterone cypionate (DEPO-TESTOSTERONE) 200 mg/mL injection INJECT 0.5 ml INTRAMUSCULARLY EVERY TEN days. No current facility-administered medications on file prior to visit. MEDICAL HISTORY PAST MEDICAL HISTORY Diagnosis Date Acquired hallux limitus o (more content not included)... Normal [facility] No Panel Informationon 02-02 Radiology Study observation (narrative) [facility] Telephone Encounteron 2023 [place] [employer] Authentication Interface Message Text Pt called asking for dates of hospitalization last year. Provided admission and discharge dates to pt, and my chart help desk phone # for assistance to create an account. Stated understanding. Normal [facility] XR ANKLE 3+ VIEWS RIGHTon XR ANKLE 3+ VIEWS RIGHT TITLE OF EXAM: XR - RT ANKLE COMPLETE MIN 3 V REASON FOR EXAM: Right ankle ankle pain. TECHNIQUE: 3 radiographs of the right ankle COMPARISONS: None FINDINGS: Right ankle: No fracture. Contour the talar dome is smooth. The ankle mortise is normal. Degenerative changes along the distal tibiofibular syndesmosis. Tiny exostosis or osteophyte formation along the distal fibular origin of the talofibular ligaments. Achilles insertional enthesophyte. Moderate talonavicular joint osteoarthrosis with dorsal osteophyte formation and os supranaviculare. Right foot: No fracture. Anatomic alignment of the bones. Moderate to severe first metatarsophalangeal joint osteoarthrosis with marginal osteophyte formation, subchondral/subcortical cysts, and joint space narrowing. No focal soft tissue abnormality. IMPRESSION: No fracture or dislocation. Degenerative changes as detailed. DICTATED ON: 02/03/2024 11:18 AM This report has been electronically signed and approved by the interpreting radiologist. Electronically Signed Toi Mcqueen M.D. 2024-02-03 11:21:29 Normal Not Available XR Ankle - right 3 Viewson 1 TITLE OF EXAM: XR - RT ANKLE COMPLETE MIN 3 V REASON FOR EXAM: Right ankle ankle pain. TECHNIQUE: 3 radiographs of the right ankle COMPARISONS: None FINDINGS: Right ankle: No fracture. Contour the talar dome is smooth. The ankle mortise is normal. Degenerative changes along the distal tibiofibular syndesmosis. Tiny exostosis or osteophyte formation along the distal fibular origin of the talofibular ligaments. Achilles insertional enthesophyte. Moderate talonavicular joint osteoarthrosis with dorsal osteophyte formation and os supranaviculare. Right foot: No fracture. Anatomic alignment of the bones. Moderate to severe first metatarsophalangeal joint osteoarthrosis with marginal osteophyte formation, subchondral/subcortical cysts, and joint space narrowing. No focal soft tissue abnormality. IMPRESSION: No fracture or dislocation. Degenerative changes as detailed. DICTATED ON: 02/03/2024 11:18 AM This report has been electronically signed and approved by the interpreting radiologist. Electronically Signed Toi Mcqueen M.D. 2024-02-03 11:21:29 IMAGING Dustin Mcqueen MD - 02/03/2024 TITLE OF EXAM: XR - RT ANKLE COMPLETE MIN 3 V REASON FOR EXAM: Right ankle ankle pain. TECHNIQUE: 3 radiographs of the right ankle COMPARISONS: None FINDINGS: Right ankle: No fracture. Contour the talar dome is smooth. The ankle mortise is normal. Degenerative changes along the distal tibiofibular syndesmosis. Tiny exostosis or osteophyte formation along the distal fibular origin of the talofibular ligaments. Achilles insertional enthesophyte. Moderate talonavicular joint osteoarthrosis with dorsal osteophyte formation and os supranaviculare. Right foot: No fracture. Anatomic alignment of the bones. Moderate to severe first metatarsophalangeal joint osteoarthrosis with marginal osteophyte formation, subchondral/subcortical cysts, and joint space narrowing. No focal soft tissue abnormality. IMPRESSION: No fracture or dislocation. Degenerative changes as detailed. DICTATED ON: 02/03/2024 11:18 AM This report has been electronically signed and approved by the interpreting radiologist. Electronically Signed Toi Mcqueen M.D. 2024-02-03 11:21:29 [facility] XR FOOT 3+ VIEWS RIGHTon XR FOOT 3+ VIEWS RIGHT TITLE OF EXAM: XR - RT FOOT COMPLETE MIN 3 V REASON FOR EXAM: Right great toe and heel pain TECHNIQUE: 3 radiographs of the right foot COMPARISONS: None FINDINGS: Right ankle: No fracture. Contour the talar dome is smooth. The ankle mortise is normal. Degenerative changes along the distal tibiofibular syndesmosis. Tiny exostosis or osteophyte formation along the distal fibular origin of the talofibular ligaments. Achilles insertional enthesophyte. Moderate talonavicular joint osteoarthrosis with dorsal osteophyte formation and os supranaviculare. Right foot: No fracture. Anatomic alignment of the bones. Moderate to severe first metatarsophalangeal joint osteoarthrosis with marginal osteophyte formation, subchondral/subcortical cysts, and joint space narrowing. No focal soft tissue abnormality. IMPRESSION: No fracture or dislocation. Degenerative changes as detailed. DICTATED ON: 02/03/2024 11:18 AM This report has been electronically signed and approved by the interpreting radiologist. Electronically Signed Toi Mcqueen M.D. 2024-02-03 11:21:47 Normal Not Available XR Foot - right 3 Viewson TITLE OF EXAM: XR - RT FOOT COMPLETE MIN 3 V REASON FOR EXAM: Right great toe and heel pain TECHNIQUE: 3 radiographs of the right foot COMPARISONS: None FINDINGS: Right ankle: No fracture. Contour the talar dome is smooth. The ankle mortise is normal. Degenerative changes along the distal tibiofibular syndesmosis. Tiny exostosis or osteophyte formation along the distal fibular origin of the talofibular ligaments. Achilles insertional enthesophyte. Moderate talonavicular joint osteoarthrosis with dorsal osteophyte formation and os supranaviculare. Right foot: No fracture. Anatomic alignment of the bones. Moderate to severe first metatarsophalangeal joint osteoarthrosis with marginal osteophyte formation, subchondral/subcortical cysts, and joint space narrowing. No focal soft tissue abnormality. IMPRESSION: No fracture or dislocation. Degenerative changes as detailed. DICTATED ON: 02/03/2024 11:18 AM This report has been electronically signed and approved by the interpreting radiologist. Electronically Signed Toi Mcqueen M.D. 2024-02-03 11:21:47 IMAGING Dustin Mcqueen MD - 02/03/2024 TITLE OF EXAM: XR - RT FOOT COMPLETE MIN 3 V REASON FOR EXAM: Right great toe and heel pain TECHNIQUE: 3 radiographs of the right foot COMPARISONS: None FINDINGS: Right ankle: No fracture. Contour the talar dome is smooth. The ankle mortise is normal. Degenerative changes along the distal tibiofibular syndesmosis. Tiny exostosis or osteophyte formation along the distal fibular origin of the talofibular ligaments. Achilles insertional enthesophyte. Moderate talonavicular joint osteoarthrosis with dorsal osteophyte formation and os supranaviculare. Right foot: No fracture. Anatomic alignment of the bones. Moderate to severe first metatarsophalangeal joint osteoarthrosis with marginal osteophyte formation, subchondral/subcortical cysts, and joint space narrowing. No focal soft tissue abnormality. IMPRESSION: No fracture or dislocation. Degenerative changes as detailed. DICTATED ON: 02/03/2024 11:18 AM This report has been electronically signed and approved by the interpreting radiologist. Electronically Signed Toi Mcqueen M.D. 2024-02-03 11:21:47 [facility] XR Foot - right 3 ViewsOrder ed By: Dustin Mcqueen on 02-03-2024 [facility] Work Phone: [phone] 01-31-2024 [id number] HNO ID: [id number] Author: MIMA SIMPSON OTR/Angelo Service: ? Author Type: Occupational Therapist Type: [id number] Filed: 01/31/2024 14:43 Note Text: [facility] Occupational Therapy Plan of Care Certification Patient Name: José Rojas : 1960 [facility] #: [id number] Date: 01/31/2024 To: Rik Rosenthal MD From Therapist: ALIREZA Pierce/Angelo RE: Patient Certification/ Recertification Your review, approval and electronic signature are required in order to comply with Payor: [facility] MEDICAID / Plan: [facility] MEDICAID / Product Type: Medicaid / regulations. The identified Occupational Therapy PLAN OF CARE for the patient is as follows: M25.532 Pain in left wrist (primary encounter diagnosis) M79.645 Thumb pain, left M25.60 Limited joint range of motion PLAN OF CARE: Assessment: José Rojas presents with chief complaint of L wrist and thumb stiffness following L thumb CMC arthroplasty with hemitrapezoidectomy on 12/13/23 that interferes with gripping, pinching (has not been using hand much since surgery) . The patient presents with impairments in overall function and range of motion. Patient did not complete the PROMIS? (Patient Reported Outcome Measures Information System). Prognosis for therapy is Good due to: current objective clinical presentation, within-session changes . He was able to don splint by end of session and verbalized understanding of splint wear/care. He correctly repeated back exercises for his home program. Anticipate improvements in motion with compliance with home program. The patient will benefit from skilled therapy services to meet the goals established for this plan of care as noted below. Goals for Episode of Care: established 01/31/24 Patient will demonstrate independence with ongoing home recommendations/exercise program throughout therapy plan of care. Patient will improve function in Left hand and thumb in order to be able to perform basic self-care tasks and light functional tasks. Patient will report a decrease in pain in Left wrist and thubm to 1/10 with basic self-care tasks and light functional tasks. Patient will increase AROM of Left thumb IP to 55 in order to be able to improve function for basic self-care tasks and light functional tasks. Patient will independently demonstrate correct application of CUSTOM orthosis and verbalize understanding of proper wear/care. Patient will report a good understanding of edema control, scar / wound management throughout therapy plan of care to promote non-adherent / non-tender soft tissue. Patient Goals: decreased pain, improve strength and mobility Based on the patient's history, the components of the examination, the patient presentation, and required decision-making as described in this evaluation, this patient's evaluation falls into the low category of complexity as described by AMA CPT codes. Time Frame for Goals and Treatment : 03/31/24 Planned Interventions, Frequency, and Duration: Current Frequency: 1x/week Duration: 8 weeks Total Number of Visits Planned: 8 Planned Treatment Interventions: Custom orthosis fabrication, Prefabricated orthosis fitting, Therapeutic exercise (29158), Manual therapy (31247), Self-nursing home management (42618), Patient/Family/Caregiver Education PLAN FOR NEXT VISIT:adjust splint as needed, review and update home program as needed, reassess motion, progressive mobility exercises Patient demonstrates good understanding of plan of care and treatment. The above goals and plan of care were discussed and agreed upon by patient/family. For further details regarding this patient refer to the Occupational Therapy electronically documented visit dated 01/31/2024. Provider Attestation I have reviewed the treatment plan for José Rojas, [facility]# [id number] for the period of 01/31/24 -- 04/30/24, established on 01/31/2024. Signature certifies the need for therapy services. Normal [facility] CNOVon 01-31-2024 CNOV Office Visit (LOORRM ) -- JOSÉ ROJAS ([id number]) 1960 M Date Time Provider Department 01/31/24 8:30 AM CAST TECH JAYNE OTT During your visit today, we recorded the following information about you: Otto Carbone, AT 01/31/2024 9:51 AM Signed Patient in today for scheduled appointment. Cast removed. Arm cleansed with soapy water. Examined by Dr. Rosenthal. No further cast room treatment needed at this time. Follow up as scheduled/PRN. Otto Carbone, MS, ATC, ROT, OBT Allergies As of Date: 01/31/2024 (No Known Allergies) Date Reviewed: 01/31/2024 Reviewed by: Bettye Boateng OCCA - Fully Assessed Primary Visit Diagnosis:Postoperative state [Z98.890] Prescriptions as of 01/31/2024 - HYDROcodone-acetaminophen (NORCO) 5-325 mg per tablet Take 1 tablet by mouth every 8 hours as needed for pain for up to 7 days. - methocarbamol (ROBAXIN) 750 mg tablet Take 1 tablet by mouth three times a day. - HYDROcodone-acetaminophen (NORCO) 5-325 mg per tablet Take 1 tablet by mouth every 8 hours as needed for pain for up to 7 days. - losartan (COZAAR) 50 mg tablet take 1 tablet by mouth every day - metoprolol succinate ER (TOPROL XL) 50 mg 24 hr tablet take 1 tablet by mouth at bedtime - rosuvastatin (CRESTOR) 5 mg tablet take 1 tablet by mouth at bedtime - naproxen (NAPROSYN) 500 mg tablet TAKE 1 TABLET BY MOUTH TWICE DAILY NEEDED FOR PAIN (TAKE WITH FOOD) - pantoprazole DR (PROTONIX) 40 mg tablet take 1 tablet by mouth daily - escitalopram oxalate (LEXAPRO) 20 mg tablet TAKE 1 and ONE-HALF TABLETS BY MOUTH DAILY - LORazepam (ATIVAN) 0.5 mg Take 1 tablet by mouth daily at bedtime for 180 days. - tiZANidine (ZANAFLEX) 4 mg tablet TAKE 1 TABLET BY MOUTH TWICE DAILY NEEDED for headache - omega 3-tjx-ytc-fish oil 300 mg (120 mg- 180mg)-1,000 mg cap take 2 capsules by mouth at bedtime - VITAMIN D 25 mcg (1,000 unit) tab tablet take 1 tablet by mouth daily - pramipexole (MIRAPEX) 0.125 mg tablet Take 1 tablet by mouth daily at bedtime. - semaglutide (OZEMPIC) 0.25 mg or 0.5 mg(2 mg/1.5 mL) pen Inject 0.25 mg subcutaneously one time a week. - acamprosate DR (CAMPRAL) 333 mg tablet Take 2 tablets by mouth three times daily. - VITAMIN B-2 100 mg tab Take 4 tablets by mouth once daily. - verapamil SR (CALAN SR, ISOPTIN SR) 180 mg CR tablet Take 1 tablet by mouth daily at bedtime. - galcanezumab-gnlm (EMGALITY PEN) 120 mg/mL pen Inject 1 mL subcutaneously once every month. Do not shake. Start after completing 240mg loading dose. - Ascorbic Acid 1,000 mg tablet TAKE 1 TABLET BY MOUTH DAILY - aspirin, enteric coated (ECOTRIN LOW STRENGTH) 81 mg EC tablet Take 1 tablet by mouth once daily. - fluticasone (FLONASE) 50 mcg/actuation nasal spray use 2 (TWO) sprays IN EACH NOSTRIL DAILY AT BEDTIME - CPAP New set up: AutoCPAP 5-15 cm H2O, mask (pt pref), filters, heated humidity AND tubing. Lifetime supplies. SUSANNAH G47.33. - testosterone cypionate (DEPO-TESTOSTERONE) 200 mg/mL injection INJECT 0.5 ml INTRAMUSCULARLY EVERY TEN days. Meds Comments as of 06/19/2023: 11/16/22 No medication changes with the past 30 days. Mary Leyva RN 06/19/2023 Patient states that he is only taking amitriptyline, metoprolol and tizanidine. Shelby Camargo RN Problem List As Of Date 01/31/2024 Noted Resolved Radicular pain of right lower extremity [M54.10]07/21/2010 Vitamin D deficiency [E55.9] 07/21/2010 Lumbago [M54.50] 07/21/2010 Chronic pain [G89.29] 07/21/2010 12/27/2019 Misuse of drugs [F19.90] 10/19/2010 Opioid dependence [F11.20] 10/19/2010 Myofascial pain syndrome [M79.18] 10/19/2010 Neck pain [M54.2] 05/24/2012 Lumbar spinal stenosis [M48.061] 09/01/2012 Testosterone deficiency [E34.9] 05/21/2013 Hypogonadism in male [E29.1] 07/09/2014 Osteoarthrosis, unspecified whether generalized*08/30/2014 Epididymal mass [N50.89] 09/04/2014 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] 09/26/2014 Right shoulder pain [M25.511] 12/11/2014 Cigarette nicotine dependence without complicat*12/11/2014 Pain in both feet [M79.671, M79.672] 12/11/2014 03/21/2018 Bilateral low back pain without sciatica [M54.5*12/11/2014 Cervicalgia [M54.2] 12/11/2014 Pain in joint, multiple sites [M25.50] 12/11/2014 03/21/2018 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 Normal [facility] Office Visit (LOORRM ) -- JOSÉ ROJAS ([id number]) 1960 M Date Time Provider Department 01/31/24 8:00 AM RIK ROSENTHALORRNisha During your visit today, we recorded the following information about you: Rik Rosenthal MD 01/31/2024 8:51 AM Signed OPERATIVE REPORT: PROCEDURE: Left thumb CMC arthroplasty with Roni trapezoid ectomy DATE: 12/13/2023 SURGICAL PATHOLOGY: FINAL DIAGNOSIS A. Left hand, trapezoid bone, excision: - Degenerative joint disease. 7 weeks out. He is doing well. No issues. He is hopeful for an injection to the base of the right thumb. PHYSICAL EXAM: All incisions are healing nicely. No signs of infection. Sensation intact in the superficial radial, median, radial, ulnar nerve distribution. AIN, PIN, ulnar motor intact. Able make a full fist. Intact EPL and FPL. Smooth and painless circumduction of the CMC. Tender at the right thumb first CMC with positive grind. PLAN: He will see occupational therapy today for a removable thermoplastic thumb spica splint. He will wear this at all times except for hygiene, motion exercises and when just sitting around. Occupational therapy will also work on motion exercises with him. I will see him back when he is 3 months out. At this point he will wean out of his brace and into normal use. We will do a fluoroscopic injection to the right thumb CMC joint today. Small Joint Arthro/Inj: R thumb CMC Informed Consent Consent Obtained: Verbal Burton Protocol A moment to CARE was completed. SIGN IN Sign in communication not applicable due to emergent procedure. Personnel directly involved with the procedure wore the appropriate PPE. Special Equipment: N/A Patient/Surrogate Stated/Verified: Patient name, Date of , Relevant allergies and Intended procedure TIME OUT Intended patient and procedure match the source document(s). Consent documented and matches the intended procedure. Relevant labs, photos, and/or imaging studies have been reviewed. Correct side/site marked and visible. Medications required for procedure verified. No fire risk assessment and interventions applicable. No implant(s) inserted. 01/31/2024 8:27 AM The procedure site was prepped in the usual sterile fashion. Details:Fluoroscopy guided Medications: 20 mg triamcinolone acetonide 40 mg/mL Anesthetics: 0.5 mL lidocaine (PF) 10 mg/mL (1 %) Outcome: tolerated well, no immediate complications Post-injection instructions were reviewed with the patient and the patient voiced understanding of these instructions. SIGN OUT No specimen collected. All instruments, equipment, possible retained foreign bodies accounted for. Post-procedure follow-up management communicated and Plan of Care Visit completed when applicable Significant pain relief with the injection. Allergies As of Date: 01/31/2024 (No Known Allergies) Date Reviewed: 01/31/2024 Reviewed by: Bettye Boateng OCCA - Fully Assessed Reason for Visit: Established Patient [175] Post Op [174] Primary Visit Diagnosis:Postoperative state [Z98.890] Other Visit Diagnosis:Primary osteoarthritis of first carpometacarpal joint of right hand [M18.11] Order(s):Small Joint Arthro/Inj: R thumb CMC [LOG491] Order #: [id number] HYDROcodone-acetaminophen (NORCO) 5-325 mg per tabletTake 1 tablet by mouth every 8 hours as needed for pain for up to 7 days.Disp: 21 tabletRfl: 0 [] lidocaine (PF) 10 mg/mL (1 %) 0.5 mL injection (XYLOCAINE)Disp: Rfl: [] triamcinolone acetonide 20 mg injection (KeNALog 40)Disp: Rfl: Prescriptions as of 01/31/2024 - HYDROcodone-acetaminophen (NORCO) 5-325 mg per tablet Take 1 tablet by mouth every 8 hours as needed for pain for up to 7 days. - methocarbamol (ROBAXIN) 750 mg tablet Take 1 tablet by mouth three times a day. - HYDROcodone-acetaminophen (NORCO) 5-325 mg per tablet Take 1 tablet by mouth every 8 hours as needed for pain for up to 7 days. - losartan (COZAAR) 50 mg tablet take 1 tablet by mouth every day - metoprolol succinate ER (TOPROL XL) 50 mg 24 hr tablet take 1 tablet by mouth at bedtime - rosuvastatin (CRESTOR) 5 mg tablet take 1 tablet by mouth at bedtime - naproxen (NAPROSYN) 500 mg tablet TAKE 1 TABLET BY MOUTH TWICE DAILY NEEDED FOR PAIN (TAKE WITH FOOD) - pantoprazole DR (PROTONIX) 40 mg tablet take 1 tablet by mouth daily - escitalopram oxalate (LEXAPRO) 20 mg tablet TAKE 1 and ONE-HALF TABLETS BY MOUTH DAILY - LORazepam (ATIVAN) 0.5 mg Take 1 tablet by mouth daily at bedtime for 180 days. - tiZANidine (ZANAFLEX) 4 mg tablet TAKE 1 TABLET BY MOUTH TWICE DAILY NEEDED for headache - omega 0-pwz-pgn-fish oil 300 mg (120 mg- 180mg)-1,000 mg cap take 2 capsules by mouth at bedtime - VITAMIN D 25 mcg (1,000 unit) tab tablet take 1 tablet by mouth daily - pramipexole (MIRAPEX) 0.125 mg tablet Take 1 tablet by mouth daily at (more content not included)... Normal [facility] [facility] CNTHERAPYon 01-31-2024 CNTHERAPY OT/PT/Speech Visit (LOOTRM) -- JOSÉ ROJAS ([id number]) 1960 M Date Time Provider Department 01/31/24 9:30 AM RIZWANMIMA JIMÉNEZ ELVIA Date Time Provider Department [place] 01/31/2024 9:30 AM [id number], MIMADARLEEN HUTCHINSONNisha Miriam Curry Reason for Visit: OT Discharge [750] OT EVAL [748] Patient Education [91] Primary Visit Diagnosis:Pain in left wrist [M25.532] Other Visit Diagnoses:Thumb pain, left [M79.645] Limited joint range of motion [M25.60] Allergies As of Date: 01/31/2024 (No Known Allergies) Date Reviewed: 01/31/2024 Reviewed by: Bettye Boateng OCCA - Fully Assessed Prescriptions as of 03/06/2024 - gabapentin (NEURONTIN) 300 mg capsule Take 1 capsule by mouth three times a day for 90 days. - methocarbamol (ROBAXIN) 750 mg tablet Take 1 tablet by mouth three times a day. - losartan (COZAAR) 50 mg tablet take 1 tablet by mouth every day - metoprolol succinate ER (TOPROL XL) 50 mg 24 hr tablet take 1 tablet by mouth at bedtime - rosuvastatin (CRESTOR) 5 mg tablet take 1 tablet by mouth at bedtime - naproxen (NAPROSYN) 500 mg tablet TAKE 1 TABLET BY MOUTH TWICE DAILY NEEDED FOR PAIN (TAKE WITH FOOD) - pantoprazole DR (PROTONIX) 40 mg tablet take 1 tablet by mouth daily - escitalopram oxalate (LEXAPRO) 20 mg tablet TAKE 1 and ONE-HALF TABLETS BY MOUTH DAILY - LORazepam (ATIVAN) 0.5 mg Take 1 tablet by mouth daily at bedtime for 180 days. - tiZANidine (ZANAFLEX) 4 mg tablet TAKE 1 TABLET BY MOUTH TWICE DAILY NEEDED for headache - omega 3-sit-gld-fish oil 300 mg (120 mg- 180mg)-1,000 mg cap take 2 capsules by mouth at bedtime - VITAMIN D 25 mcg (1,000 unit) tab tablet take 1 tablet by mouth daily - pramipexole (MIRAPEX) 0.125 mg tablet Take 1 tablet by mouth daily at bedtime. - semaglutide (OZEMPIC) 0.25 mg or 0.5 mg(2 mg/1.5 mL) pen Inject 0.25 mg subcutaneously one time a week. - acamprosate DR (CAMPRAL) 333 mg tablet Take 2 tablets by mouth three times daily. - VITAMIN B-2 100 mg tab Take 4 tablets by mouth once daily. - verapamil SR (CALAN SR, ISOPTIN SR) 180 mg CR tablet Take 1 tablet by mouth daily at bedtime. - galcanezumab-gnlm (EMGALITY PEN) 120 mg/mL pen Inject 1 mL subcutaneously once every month. Do not shake. Start after completing 240mg loading dose. - Ascorbic Acid 1,000 mg tablet TAKE 1 TABLET BY MOUTH DAILY - aspirin, enteric coated (ECOTRIN LOW STRENGTH) 81 mg EC tablet Take 1 tablet by mouth once daily. - fluticasone (FLONASE) 50 mcg/actuation nasal spray use 2 (TWO) sprays IN EACH NOSTRIL DAILY AT BEDTIME - CPAP New set up: AutoCPAP 5-15 cm H2O, mask (pt pref), filters, heated humidity AND tubing. Lifetime supplies. SUSANNAH G47.33. - testosterone cypionate (DEPO-TESTOSTERONE) 200 mg/mL injection INJECT 0.5 ml INTRAMUSCULARLY EVERY TEN days. Meds Comments as of 06/19/2023: 11/16/22 No medication changes with the past 30 days. Mary Leyva RN 06/19/2023 Patient states that he is only taking amitriptyline, metoprolol and tizanidine. Shelby Camargo RN Annotated image of OT HAND POST-OPERATIVE WRIST EXERCISES last updated by Mima Simpson OTR/L on 01/31/2024 2:43 PM Annotated image of OT HAND TENDON GLIDES THUMB last updated by Mima Simpson OTR/Angleo on 01/31/2024 10:12 AM Letter Text Normal [facility] Small Joint Arthro/Inj: R th umb CMCon 01-31-2024 Rik Rosenthal MD 01/31/2024 8:51 AM Small Joint Arthro/Inj: R [place] [facility] [place] Consent Consent Obtained: Verbal Burton Protocol A moment to CARE was completed. SIGN IN Sign in communication not applicable due to emergent procedure. Personnel directly involved with the procedure wore the appropriate PPE. Special Equipment: N/A Patient/Surrogate Stated/Verified: Patient name, Date of , Relevant allergies and Intended procedure TIME OUT Intended patient and procedure match the source document(s). Consent documented and matches the intended procedure. Relevant labs, photos, and/or imaging studies have been reviewed. Correct side/site marked and visible. Medications required for procedure verified. No fire risk assessment and interventions applicable. No implant(s) inserted. 01/31/2024 8:27 AM The procedure site was prepped in the usual sterile fashion. Details:Fluoroscopy guided Medications: 20 mg triamcinolone acetonide 40 mg/mL Anesthetics: 0.5 mL lidocaine (PF) 10 mg/mL (1 %) Outcome: tolerated well, no immediate complications Post-injection instructions were reviewed with the patient and the patient voiced understanding of these instructions. SIGN OUT No specimen collected. All instruments, equipment, possible retained foreign bodies accounted for. Post-procedure follow-up management communicated and Plan of Care Visit completed when applicable [facility] XR DIGIT 3V FRONTAL/LAT/OBL LTon 01-31-2024 XR DIGIT 3V FRONTAL/LAT/OBL LT * * *Final Report* * * DATE OF EXAM: Jan 31 2024 8:32AM LZX [id number] - XR DIGIT 3V FRONTAL/LAT/OBL LT / PROCEDURE REASON: Post-operative state * * * * Physician Interpretation * * * * EXAMINATION: XR DIGIT 3V FRONTAL/LAT/OBL LT HISTORY: Post-operative state . TECHNIQUE: XR DIGIT 3V FRONTAL/LAT/OBL LT Laterality: Left Number of different views (projections): 3 M: XB_1 COMPARISON: 01/10/2021 RESULT/ IMPRESSION: Bilateral hindfoot valgus and pes planus. Severe left and mild right first MTP joint degenerative changes. Mild TMT joint degenerative changes are also noted. No acute fracture or dislocation. No erosions. No other significant abnormality. Firer Boiler: LASHAE Transcribe Date/Time: Jan 31 2024 8:45A Dictated by : TESSA LOMAX MD This examination was interpreted and the report reviewed and electronically signed by: TESSA LOMAX MD on Jan 31 2024 9:20AM EST [id number] Normal [facility] XR Finger - left AP and Late ral and obliqueon 01-31-2024 IMPRESSION: Bilateral hindfoot valgus and pes planus. Severe left and mild right first MTP joint degenerative changes. Mild TMT joint degenerative changes are also noted. No acute fracture or dislocation. No erosions. No other significant abnormality. Firer Boiler: [facility] Transcribe Date/Time: Jan 31 2024 8:45A Dictated by : TESSA LOMAX MD This examination was interpreted and the report reviewed and electronically signed by: TESSA LOMAX MD on Jan 31 2024 9:20AM [facility] DIVISION OF RADIOLOGY * * *Final Report* * * DATE OF EXAM: Jan 31 2024 8:32AM LZX [id number] - XR DIGIT 3V FRONTAL/LAT/OBL LT / PROCEDURE REASON: Post-operative state * * * * Physician Interpretation * * * * EXAMINATION: XR DIGIT 3V FRONTAL/LAT/OBL LT HISTORY: Post-operative state . TECHNIQUE: XR DIGIT 3V FRONTAL/LAT/OBL LT Laterality: Left Number of different views (projections): 3 M: XB_1 COMPARISON: 01/10/2021 RESULT/ DIVISION OF RADIOLOGY Provider, [facility] - 01/31/2024 * * *Final Report* * * DATE OF EXAM: Jan 31 2024 8:32AM LZX [id number] - XR DIGIT 3V FRONTAL/LAT/OBL LT / PROCEDURE REASON: Post-operative state * * * * Physician Interpretation * * * * EXAMINATION: XR DIGIT 3V FRONTAL/LAT/OBL LT HISTORY: Post-operative state . TECHNIQUE: XR DIGIT 3V FRONTAL/LAT/OBL LT Laterality: Left Number of different views (projections): 3 M: XB_1 COMPARISON: 01/10/2021 RESULT/ IMPRESSION IMPRESSION: Bilateral hindfoot valgus and pes planus. Severe left and mild right first MTP joint degenerative changes. Mild TMT joint degenerative changes are also noted. No acute fracture or dislocation. No erosions. No other significant abnormality. Firer Boiler: [facility] Transcribe Date/Time: Jan 31 2024 8:45A Dictated by : TESSA LOMAX MD This examination was interpreted and the report reviewed and electronically signed by: TESSA LOMAX MD on Jan 31 2024 9:20AM EST [facility] Radiology Study observation (narrative) [facility] XR Finger - left AP and Late ral and obliqueOrdered By: [facility]cf Provider on 01-31-2024 [facility] Brianna 01-26-2024 CNPN Telephone (DataPadCC) -- ROJASJOSÉ ([id number]) 1960 M Date Time Provider Department 01/26/24 GATITO MORGAN V ORTH During your visit today, we recorded the following information about you: Ciera Tran RN 01/26/2024 10:56 AM Signed Patient calling in to office. Verified by name and . Patient states that he has ongoing, chronic issues with right foot pain, for which he has seen Dr. Morgan in the past. States that he recently found out from his insurance company that they would allow for him to receive a pair of orthotic boots. He states that he checked with another flight surveyor that he saw recently for casting for inserts, but states he only prescribes shoes for diabetic patients. Patient states that about one week ago, he stubbed his right big toe on the concrete and has been having severe pain since the incident. Admits to swelling in right foot and ankle. States initially he had redness and warmth noted, but those have resolved. He also admits to protruding blood vessels around the injury initially, but has resolved. Encouraged [facility] to evaluate injury, but patient states due to ongoing severity of the pain, he is planning on going to a local ER for further evaluation of the pain. Advised appointment with Dr. Morgan for follow up to discuss shoes. Transferred to office who assisted patient in scheduling with appointment 03/13/24. Allergies As of Date: 01/26/2024 (No Known Allergies) Date Reviewed: 01/11/2024 Reviewed by: Zhou Astorga OCCA - Fully Assessed Reason for Visit: Orders [681] Prescriptions as of 02/14/2024 - methocarbamol (ROBAXIN) 750 mg tablet Take 1 tablet by mouth three times a day. - losartan (COZAAR) 50 mg tablet take 1 tablet by mouth every day - metoprolol succinate ER (TOPROL XL) 50 mg 24 hr tablet take 1 tablet by mouth at bedtime - rosuvastatin (CRESTOR) 5 mg tablet take 1 tablet by mouth at bedtime - naproxen (NAPROSYN) 500 mg tablet TAKE 1 TABLET BY MOUTH TWICE DAILY NEEDED FOR PAIN (TAKE WITH FOOD) - pantoprazole DR (PROTONIX) 40 mg tablet take 1 tablet by mouth daily - escitalopram oxalate (LEXAPRO) 20 mg tablet TAKE 1 and ONE-HALF TABLETS BY MOUTH DAILY - LORazepam (ATIVAN) 0.5 mg Take 1 tablet by mouth daily at bedtime for 180 days. - tiZANidine (ZANAFLEX) 4 mg tablet TAKE 1 TABLET BY MOUTH TWICE DAILY NEEDED for headache - omega 3-sse-lwu-fish oil 300 mg (120 mg- 180mg)-1,000 mg cap take 2 capsules by mouth at bedtime - VITAMIN D 25 mcg (1,000 unit) tab tablet take 1 tablet by mouth daily - pramipexole (MIRAPEX) 0.125 mg tablet Take 1 tablet by mouth daily at bedtime. - semaglutide (OZEMPIC) 0.25 mg or 0.5 mg(2 mg/1.5 mL) pen Inject 0.25 mg subcutaneously one time a week. - acamprosate DR (CAMPRAL) 333 mg tablet Take 2 tablets by mouth three times daily. - VITAMIN B-2 100 mg tab Take 4 tablets by mouth once daily. - verapamil SR (CALAN SR, ISOPTIN SR) 180 mg CR tablet Take 1 tablet by mouth daily at bedtime. - galcanezumab-gnlm (EMGALITY PEN) 120 mg/mL pen Inject 1 mL subcutaneously once every month. Do not shake. Start after completing 240mg loading dose. - Ascorbic Acid 1,000 mg tablet TAKE 1 TABLET BY MOUTH DAILY - aspirin, enteric coated (ECOTRIN LOW STRENGTH) 81 mg EC tablet Take 1 tablet by mouth once daily. - fluticasone (FLONASE) 50 mcg/actuation nasal spray use 2 (TWO) sprays IN EACH NOSTRIL DAILY AT BEDTIME - CPAP New set up: AutoCPAP 5-15 cm H2O, mask (pt pref), filters, heated humidity AND tubing. Lifetime supplies. SUSANNAH G47.33. - testosterone cypionate (DEPO-TESTOSTERONE) 200 mg/mL injection INJECT 0.5 ml INTRAMUSCULARLY EVERY TEN days. Meds Comments as of 06/19/2023: 11/16/22 No medication changes with the past 30 days. Mary Leyva RN 06/19/2023 Patient states that he is only taking amitriptyline, metoprolol and tizanidine. Shelby Camargo RN Problem List As Of Date 01/26/2024 Noted Resolved Radicular pain of right lower extremity [M54.10]07/21/2010 Vitamin D deficiency [E55.9] 07/21/2010 Lumbago [M54.50] 07/21/2010 Chronic pain [G89.29] 07/21/2010 12/27/2019 Misuse of drugs [F19.90] 10/19/2010 Opioid dependence [F11.20] 10/19/2010 Myofascial pain syndrome [M79.18] 10/19/2010 Neck pain [M54.2] 05/24/2012 Lumbar spinal stenosis [M48.061] 09/01/2012 Testosterone deficiency [E34.9] 05/21/2013 Hypogonadism in male [E29.1] 07/09/2014 Osteoarthrosis, unspecified whether generalized*08/30/2014 Epididymal mass [N50.89] 09/04/2014 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] 09/26/2014 Right shoulder pain [M25.511] 12/11/2014 Cigarette nicotine dependence without complicat*12/11/2014 Pain in both feet [M79.671, M79.672] 12/11/2014 03/21/2018 Bilateral low back pain without sciatica [M54.5*12/11/2014 Cervicalgia [M54.2] 12/11/2014 Pain in joint, multiple sites [M25.50] 12/11/2014 11 (more content not included)... Normal [facility] CNOVon 01-11-2024 CNOV Office Visit (ORAVON ) -- JOSÉ ROJAS ([id number]) 1960 M Date Time Provider Department 01/11/24 12:30 PM KARLI ACEVEDO During your visit today, we recorded the following information about you: Karil Acevedo PA-C 01/23/2024 7:34 PM Signed January 11, 2024 OPERATIVE REPORT: PROCEDURE: Left thumb CMC arthroplasty with Roni trapezoid ectomy DATE: 12/13/2023 SURGICAL PATHOLOGY: FINAL DIAGNOSIS A. Left hand, trapezoid bone, excision: - Degenerative joint disease. He is 4 weeks out. Patient fell yesterday and got dog feces in his cast. Patient removed this on his own with a small oscillating saw prior to contacting the office. Pain is continuing to improve, he tried to limit use of the hand but states he is likely using it more than he should. PHYSICAL EXAM: On exam of the left hand incisions are healing nicely without signs of infection. He can perform gentle active flexion extension at thumb IP. There is smooth and pain-free circumduction of the left thumb. Sensation is intact to light touch in the median, radial, ulnar and superficial radial nerve distributions, subjectively slightly decreased in the superficial radial nerve distribution. AIN, PIN and ulnar motor is intact. He can make a full fist. Radial pulse 2+. Today's x-rays demonstrate maintained suspension of thumb metacarpal, no acute fractures or dislocations. PLAN: Reassured that even though he removed the cast on his own, on x-ray everything appears stable at this point. Discussed that sensation will improve over the thumb with time. Reviewed again that he should not be using the left hand for any lifting pushing or pulling and should remain nonweightbearing. Will send a refill for Kimball to his pharmacy, and discussed that we we will continue to taper this and it should be used as needed spacing out as long as possible. Dr. Rosenthal also came and reinforced postoperative course and restrictions with the patient. Follow-up as scheduled with Dr. Rosenthal in 3 weeks Karli Acevedo PA-C Allergies As of Date: 01/11/2024 (No Known Allergies) Date Reviewed: 01/11/2024 Reviewed by: Zhou Astorga OCCA - Fully Assessed Reason for Visit: Post Op [174] Visit Diagnosis:Postoperative state [Z98.890] Prescriptions as of 01/23/2024 - HYDROcodone-acetaminophen (NORCO) 5-325 mg per tablet Take 1 tablet by mouth every 8 hours as needed for pain for up to 7 days. - methocarbamol (ROBAXIN) 750 mg tablet take 1 tablet by mouth three times a day - losartan (COZAAR) 50 mg tablet take 1 tablet by mouth every day - metoprolol succinate ER (TOPROL XL) 50 mg 24 hr tablet take 1 tablet by mouth at bedtime - rosuvastatin (CRESTOR) 5 mg tablet take 1 tablet by mouth at bedtime - naproxen (NAPROSYN) 500 mg tablet TAKE 1 TABLET BY MOUTH TWICE DAILY NEEDED FOR PAIN (TAKE WITH FOOD) - pantoprazole DR (PROTONIX) 40 mg tablet take 1 tablet by mouth daily - escitalopram oxalate (LEXAPRO) 20 mg tablet TAKE 1 and ONE-HALF TABLETS BY MOUTH DAILY - LORazepam (ATIVAN) 0.5 mg Take 1 tablet by mouth daily at bedtime for 180 days. - tiZANidine (ZANAFLEX) 4 mg tablet TAKE 1 TABLET BY MOUTH TWICE DAILY NEEDED for headache - omega 1-ixs-roy-fish oil 300 mg (120 mg- 180mg)-1,000 mg cap take 2 capsules by mouth at bedtime - VITAMIN D 25 mcg (1,000 unit) tab tablet take 1 tablet by mouth daily - pramipexole (MIRAPEX) 0.125 mg tablet Take 1 tablet by mouth daily at bedtime. - semaglutide (OZEMPIC) 0.25 mg or 0.5 mg(2 mg/1.5 mL) pen Inject 0.25 mg subcutaneously one time a week. - acamprosate DR (CAMPRAL) 333 mg tablet Take 2 tablets by mouth three times daily. - VITAMIN B-2 100 mg tab Take 4 tablets by mouth once daily. - verapamil SR (CALAN SR, ISOPTIN SR) 180 mg CR tablet Take 1 tablet by mouth daily at bedtime. - galcanezumab-gnlm (EMGALITY PEN) 120 mg/mL pen Inject 1 mL subcutaneously once every month. Do not shake. Start after completing 240mg loading dose. - Ascorbic Acid 1,000 mg tablet TAKE 1 TABLET BY MOUTH DAILY - aspirin, enteric coated (ECOTRIN LOW STRENGTH) 81 mg EC tablet Take 1 tablet by mouth once daily. - fluticasone (FLONASE) 50 mcg/actuation nasal spray use 2 (TWO) sprays IN EACH NOSTRIL DAILY AT BEDTIME - CPAP New set up: AutoCPAP 5-15 cm H2O, mask (pt pref), filters, heated humidity AND tubing. Lifetime supplies. SUSANNAH G47.33. - testosterone cypionate (DEPO-TESTOSTERONE) 200 mg/mL injection INJECT 0.5 ml INTRAMUSCULARLY EVERY TEN days. Meds Comments as of 06/19/2023: 11/16/22 No medication changes with the past 30 days. Mary Leyva RN 06/19/2023 Patient states that he is only taking amitriptyline, metoprolol and tizanidine. Shelby Camargo RN Problem List As Of Date 01/11/2024 Noted Resolved Radicular pain of right lower extremity [M54.10]07/21/2010 Vitamin D deficiency [E55.9] (more content not included)... Normal [facility] CNOV Office Visit (ORAVON ) -- JOSÉ ROJAS ([id number]) 1960 M Date Time Provider Department 01/11/24 12:00 PM CAST TECH YANIRA ALEXANDER During your visit today, we recorded the following information about you: Zhou Astorga OCCA 01/11/2024 1:56 PM Signed PT ASSESSMENT - CASTING ROOM José presents for Application of cast. Patient removed previous cast after a fall. Applied short arm thumb spica cast, IP free: to Left arm. Patient has been instructed in Care of cast. MATEUS Lawrence Allergies As of Date: 01/11/2024 (No Known Allergies) Date Reviewed: 01/11/2024 Reviewed by: Zhou Astorga OCCA - Fully Assessed Primary Visit Diagnosis:Postoperative state [Z98.890] Prescriptions as of 01/11/2024 - HYDROcodone-acetaminophen (NORCO) 5-325 mg per tablet Take 1 tablet by mouth every 6 hours as needed for pain for up to 7 days. - methocarbamol (ROBAXIN) 750 mg tablet Take 1 tablet by mouth three times a day. - losartan (COZAAR) 50 mg tablet take 1 tablet by mouth every day - metoprolol succinate ER (TOPROL XL) 50 mg 24 hr tablet take 1 tablet by mouth at bedtime - rosuvastatin (CRESTOR) 5 mg tablet take 1 tablet by mouth at bedtime - naproxen (NAPROSYN) 500 mg tablet TAKE 1 TABLET BY MOUTH TWICE DAILY NEEDED FOR PAIN (TAKE WITH FOOD) - pantoprazole DR (PROTONIX) 40 mg tablet take 1 tablet by mouth daily - escitalopram oxalate (LEXAPRO) 20 mg tablet TAKE 1 and ONE-HALF TABLETS BY MOUTH DAILY - LORazepam (ATIVAN) 0.5 mg Take 1 tablet by mouth daily at bedtime for 180 days. - tiZANidine (ZANAFLEX) 4 mg tablet TAKE 1 TABLET BY MOUTH TWICE DAILY NEEDED for headache - omega 8-cda-rii-fish oil 300 mg (120 mg- 180mg)-1,000 mg cap take 2 capsules by mouth at bedtime - VITAMIN D 25 mcg (1,000 unit) tab tablet take 1 tablet by mouth daily - pramipexole (MIRAPEX) 0.125 mg tablet Take 1 tablet by mouth daily at bedtime. - semaglutide (OZEMPIC) 0.25 mg or 0.5 mg(2 mg/1.5 mL) pen Inject 0.25 mg subcutaneously one time a week. - acamprosate DR (CAMPRAL) 333 mg tablet Take 2 tablets by mouth three times daily. - VITAMIN B-2 100 mg tab Take 4 tablets by mouth once daily. - verapamil SR (CALAN SR, ISOPTIN SR) 180 mg CR tablet Take 1 tablet by mouth daily at bedtime. - galcanezumab-gnlm (EMGALITY PEN) 120 mg/mL pen Inject 1 mL subcutaneously once every month. Do not shake. Start after completing 240mg loading dose. - Ascorbic Acid 1,000 mg tablet TAKE 1 TABLET BY MOUTH DAILY - aspirin, enteric coated (ECOTRIN LOW STRENGTH) 81 mg EC tablet Take 1 tablet by mouth once daily. - fluticasone (FLONASE) 50 mcg/actuation nasal spray use 2 (TWO) sprays IN EACH NOSTRIL DAILY AT BEDTIME - CPAP New set up: AutoCPAP 5-15 cm H2O, mask (pt pref), filters, heated humidity AND tubing. Lifetime supplies. SUSANNAH G47.33. - testosterone cypionate (DEPO-TESTOSTERONE) 200 mg/mL injection INJECT 0.5 ml INTRAMUSCULARLY EVERY TEN days. Meds Comments as of 06/19/2023: 11/16/22 No medication changes with the past 30 days. Mary Leyva RN 06/19/2023 Patient states that he is only taking amitriptyline, metoprolol and tizanidine. Shelby Camargo RN Problem List As Of Date 01/11/2024 Noted Resolved Radicular pain of right lower extremity [M54.10]07/21/2010 Vitamin D deficiency [E55.9] 07/21/2010 Lumbago [M54.50] 07/21/2010 Chronic pain [G89.29] 07/21/2010 12/27/2019 Misuse of drugs [F19.90] 10/19/2010 Opioid dependence [F11.20] 10/19/2010 Myofascial pain syndrome [M79.18] 10/19/2010 Neck pain [M54.2] 05/24/2012 Lumbar spinal stenosis [M48.061] 09/01/2012 Testosterone deficiency [E34.9] 05/21/2013 Hypogonadism in male [E29.1] 07/09/2014 Osteoarthrosis, unspecified whether generalized*08/30/2014 Epididymal mass [N50.89] 09/04/2014 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] 09/26/2014 Right shoulder pain [M25.511] 12/11/2014 Cigarette nicotine dependence without complicat*12/11/2014 Pain in both feet [M79.671, M79.672] 12/11/2014 03/21/2018 Bilateral low back pain without sciatica [M54.5*12/11/2014 Cervicalgia [M54.2] 12/11/2014 Pain in joint, multiple sites [M25.50] 12/11/2014 03/21/2018 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*01/29/2015 Fibromyalgia [M79.7] 01/29/2015 Chest pain [R07.9] 06/30/2015 Syncope [R55] 06/14/2016 Heart palpitations [R00.2] 06/14/2016 Dizziness [R42] 06/24/2016 Mixed hyperlipidemia [E78.2] 08/30/2016 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na*08/30/2016 Encounter for screening for malignant neoplasm *10/19/2016 Anxiety [F41.9] 01/07/2017 Osteoarthritis of right hip [M16.11] 02/15/2017 Medial meniscus tear [S83.249A] 02/15/2017 HTN (hypertension) [I10] Floaters, bilateral [H43.393] 08/25/2017 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 Normal [facility] CNPNon 01-11-2024 CNPN Telephone (4CQ) -- JOSÉ ROJAS ([id number]) 1960 M Date Time Provider Department 01/11/24 RIK ROSENTHAL 4CQ During your visit today, we recorded the following information about you: Ciera Chu 01/11/2024 9:40 AM Signed José is calling Rik Rosenthal MD today with concern regarding slipping and falling yesterday. Patient landed in some dog feces and it got in his cast. Patient removed cast and is coming in to day at 12 to get recasted. Patient was wondering if Dr. Rosenthal wanted to take a look at his wrist. Please advise. Patient has been identified by name and birthdate. Duration of symptoms: N/A Person calling: self Call patient at: at home [phone] (home) [phone] (cell) Was an appointment scheduled: No Closing statement: Results or non-symptom based questions: Thank you for calling [facility], your call will be returned within the next business day. Tiburcio Reyna RN 01/11/2024 4:57 PM Signed Patient came in today (01/11/2024) and had new cast placed and appointment with Karli Acevedo PA-C. Allergies As of Date: 01/11/2024 (No Known Allergies) Date Reviewed: 01/11/2024 Reviewed by: Zhou Astorga OCCA - Fully Assessed Reason for Visit: Patient Update [1234] Prescriptions as of 01/11/2024 - HYDROcodone-acetaminophen (NORCO) 5-325 mg per tablet Take 1 tablet by mouth every 8 hours as needed for pain for up to 7 days. - methocarbamol (ROBAXIN) 750 mg tablet Take 1 tablet by mouth three times a day. - losartan (COZAAR) 50 mg tablet take 1 tablet by mouth every day - metoprolol succinate ER (TOPROL XL) 50 mg 24 hr tablet take 1 tablet by mouth at bedtime - rosuvastatin (CRESTOR) 5 mg tablet take 1 tablet by mouth at bedtime - naproxen (NAPROSYN) 500 mg tablet TAKE 1 TABLET BY MOUTH TWICE DAILY NEEDED FOR PAIN (TAKE WITH FOOD) - pantoprazole DR (PROTONIX) 40 mg tablet take 1 tablet by mouth daily - escitalopram oxalate (LEXAPRO) 20 mg tablet TAKE 1 and ONE-HALF TABLETS BY MOUTH DAILY - LORazepam (ATIVAN) 0.5 mg Take 1 tablet by mouth daily at bedtime for 180 days. - tiZANidine (ZANAFLEX) 4 mg tablet TAKE 1 TABLET BY MOUTH TWICE DAILY NEEDED for headache - omega 4-for-ltj-fish oil 300 mg (120 mg- 180mg)-1,000 mg cap take 2 capsules by mouth at bedtime - VITAMIN D 25 mcg (1,000 unit) tab tablet take 1 tablet by mouth daily - pramipexole (MIRAPEX) 0.125 mg tablet Take 1 tablet by mouth daily at bedtime. - semaglutide (OZEMPIC) 0.25 mg or 0.5 mg(2 mg/1.5 mL) pen Inject 0.25 mg subcutaneously one time a week. - acamprosate DR (CAMPRAL) 333 mg tablet Take 2 tablets by mouth three times daily. - VITAMIN B-2 100 mg tab Take 4 tablets by mouth once daily. - verapamil SR (CALAN SR, ISOPTIN SR) 180 mg CR tablet Take 1 tablet by mouth daily at bedtime. - galcanezumab-gnlm (EMGALITY PEN) 120 mg/mL pen Inject 1 mL subcutaneously once every month. Do not shake. Start after completing 240mg loading dose. - Ascorbic Acid 1,000 mg tablet TAKE 1 TABLET BY MOUTH DAILY - aspirin, enteric coated (ECOTRIN LOW STRENGTH) 81 mg EC tablet Take 1 tablet by mouth once daily. - fluticasone (FLONASE) 50 mcg/actuation nasal spray use 2 (TWO) sprays IN EACH NOSTRIL DAILY AT BEDTIME - CPAP New set up: AutoCPAP 5-15 cm H2O, mask (pt pref), filters, heated humidity AND tubing. Lifetime supplies. SUSANNAH G47.33. - testosterone cypionate (DEPO-TESTOSTERONE) 200 mg/mL injection INJECT 0.5 ml INTRAMUSCULARLY EVERY TEN days. Meds Comments as of 06/19/2023: 11/16/22 No medication changes with the past 30 days. Mary Leyva RN 06/19/2023 Patient states that he is only taking amitriptyline, metoprolol and tizanidine. Shelby Camargo RN Problem List As Of Date 01/11/2024 Noted Resolved Radicular pain of right lower extremity [M54.10]07/21/2010 Vitamin D deficiency [E55.9] 07/21/2010 Lumbago [M54.50] 07/21/2010 Chronic pain [G89.29] 07/21/2010 12/27/2019 Misuse of drugs [F19.90] 10/19/2010 Opioid dependence [F11.20] 10/19/2010 Myofascial pain syndrome [M79.18] 10/19/2010 Neck pain [M54.2] 05/24/2012 Lumbar spinal stenosis [M48.061] 09/01/2012 Testosterone deficiency [E34.9] 05/21/2013 Hypogonadism in male [E29.1] 07/09/2014 Osteoarthrosis, unspecified whether generalized*08/30/2014 Epididymal mass [N50.89] 09/04/2014 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] 09/26/2014 Right shoulder pain [M25.511] 12/11/2014 Cigarette nicotine dependence without complicat*12/11/2014 Pain in both feet [M79.671, M79.672] 12/11/2014 03/21/2018 Bilateral low back pain without sciatica [M54.5*12/11/2014 Cervicalgia [M54.2] 12/11/2014 Pain in joint, multiple sites [M25.50] 12/11/2014 03/21/2018 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 Normal [facility] XR DIGIT 3V FRONTAL/LAT/OBL LTon 01-11-2024 XR DIGIT 3V FRONTAL/LAT/OBL LT * * *Final Report* * * DATE OF EXAM: Jan 11 2024 12:47PM AFR [id number] - XR DIGIT 3V FRONTAL/LAT/OBL LT / PROCEDURE REASON: Post-operative state * * * * Physician Interpretation * * * * Examination: Left thumb History: POST OP FOLLOW UP Post-operative state Technique: XR DIGIT 3V FRONTAL/LAT/OBL LT -- Comparison: 12/28/2023; 10/24/2023 FINDING/ RESULT: The left thumb CMC resection arthroplasty appears unchanged when compared to prior. Trapezium is absent and partial resection of the thumb metacarpal base with bone tunnel appear unchanged. Remainder of the wrist is unchanged. IMPRESSION: Postoperative findings CMC resection arthroplasty of the left thumb without interval radiographic change. Firer Boiler: PSCB Transcribe Date/Time: Jan 11 2024 2:48P Dictated by : ROSA ELENA CULP MD This examination was interpreted and the report reviewed and electronically signed by: ROSA ELENA CULP MD on Jan 11 2024 2:50PM EST [id number] Normal [facility] XR Finger - left AP and Late ral and obliqueon 01-11-2024 IMPRESSION: Postoper ative findings CMC resection arthroplasty of the left thumb without interval radiographic change. Firer Boiler[facility] Transcribe Date/Time: Jan 11 2024 2:48P Dictated by : ROSA ELENA CULP MD This examination was interpreted and the report reviewed and electronically signed by: ROSA ELENA CULP MD on Jan 11 2024 2:50PM EST DIVISION OF RADIOLOGY * * *Final Report* * * DATE OF EXAM: Jan 11 2024 12:47PM AFR [id number] - XR DIGIT 3V FRONTAL/LAT/OBL LT / PROCEDURE REASON: Post-operative state * * * * Physician Interpretation * * * * Examination: Left thumb History: POST OP FOLLOW UP Post-operative state Technique: XR DIGIT 3V FRONTAL/LAT/OBL LT -- Comparison: 12/28/2023; 10/24/2023 FINDING/ RESULT: The left thumb CMC resection arthroplasty appears unchanged when compared to prior. Trapezium is absent and partial resection of the thumb metacarpal base with bone tunnel appear unchanged. Remainder of the wrist is unchanged. DIVISION OF RADIOLOGY Provider, [facility] - 01/11/2024 * * *Final Report* * * DATE OF EXAM: Jan 11 2024 12:47PM AFR [id number] - XR DIGIT 3V FRONTAL/LAT/OBL LT / PROCEDURE REASON: Post-operative state * * * * Physician Interpretation * * * * Examination: Left thumb History: POST OP FOLLOW UP Post-operative state Technique: XR DIGIT 3V FRONTAL/LAT/OBL LT -- Comparison: 12/28/2023; 10/24/2023 FINDING/ RESULT: The left thumb CMC resection arthroplasty appears unchanged when compared to prior. Trapezium is absent and partial resection of the thumb metacarpal base with bone tunnel appear unchanged. Remainder of the wrist is unchanged. IMPRESSION IMPRESSION: Postoperative findings CMC resection arthroplasty of the left thumb without interval radiographic change. Firer Boiler: LASHAE Transcribe Date/Time: Jan 11 2024 2:48P Dictated by : ROSA ELENA CULP MD This examination was interpreted and the report reviewed and electronically signed by: ROSA ELENA CULP MD on Jan 11 2024 2:50PM EST [facility] Radiology Study observation (narrative) [facility] XR Finger - left AP and Late ral and obliqueOrdered By: [facility] Provider on 01-11-2024 [facility] CNOVon 12-28-2023 CNOV Office Visit (INMAVN ) -- JOSÉ ROJAS ([id number]) 1960 M Date Time Provider Department 12/28/23 2:00 PM ANNETTA MCCANN INMARC During your visit today, we recorded the following information about you: Pulse Blood pressure 69/minute 133/80 Annetta Mccann MD 12/28/2023 2:30 PM Signed Had surgical intervention done on 12/13/2023 of his left hand for primary arthrosis of first MCP joint. Will get R hand surgery done on 06/29/2024. -Pt has a follow up with Orthopedic hand specialist today. -Went to [facility] ER about one week ago for falls he suffered. Pt says he had workup done the ER. Pt says he will be making an appointment with his Neurologist. Believes he has CTE. Pt played football but has also had traumatic brain injuries as an adult per pt discussion. -Needs refill of Robaxin. -Vitals are stable. -Voices no other complaints. Vital signs reviewed and are stable GENERAL APPEARANCE: Alert, cooperative, pleasant, in no acute distress, no conversational dyspnea HEENT: Extraocular movements are intact. no pallor, no icterus NECK: No cervical lymphadenopathy or tenderness appreciated HEART: regular rate and rhythm, without murmur LUNGS: clear to auscultation, without rales or wheeze, good air exchange ADBOMEN:soft, nondistended, nontender, no hepatosplenomegaly or masses, BS are present, no rebound or guarding appreciated NEURO: No focal deficits PSYCH: no suicide thoughts (M18.0) Primary arthrosis of first carpometacarpal joints, bilateral (primary encounter diagnosis) -Had surgery of left hand as documented above and has follow up with Ortho today. -R hand surgery is scheduled for 06/2024. Allergies As of Date: 12/28/2023 (No Known Allergies) Date Reviewed: 12/28/2023 Reviewed by: Annetta Mccann MD - Fully Assessed Reason for Visit: ED Follow-up [821] Primary Visit Diagnosis:Primary arthrosis of first carpometacarpal joints, bilateral [M18.0] Order(s):methocarbamol (ROBAXIN) 750 mg tabletTake 1 tablet by mouth three times a day.Disp: 90 tabletRfl: 0 Prescriptions as of 12/28/2023 - methocarbamol (ROBAXIN) 750 mg tablet Take 1 tablet by mouth three times a day. - losartan (COZAAR) 50 mg tablet take 1 tablet by mouth every day - metoprolol succinate ER (TOPROL XL) 50 mg 24 hr tablet take 1 tablet by mouth at bedtime - oxyCODONE-acetaminophen (PERCOCET) 5-325 mg tablet Take 1 tablet by mouth every 6 hours as needed for pain for up to 7 days. Patient should start on December 22, 2023. - rosuvastatin (CRESTOR) 5 mg tablet take 1 tablet by mouth at bedtime - naproxen (NAPROSYN) 500 mg tablet TAKE 1 TABLET BY MOUTH TWICE DAILY NEEDED FOR PAIN (TAKE WITH FOOD) - pantoprazole DR (PROTONIX) 40 mg tablet take 1 tablet by mouth daily - escitalopram oxalate (LEXAPRO) 20 mg tablet TAKE 1 and ONE-HALF TABLETS BY MOUTH DAILY - LORazepam (ATIVAN) 0.5 mg Take 1 tablet by mouth daily at bedtime for 180 days. - tiZANidine (ZANAFLEX) 4 mg tablet TAKE 1 TABLET BY MOUTH TWICE DAILY NEEDED for headache - omega 9-gcn-xrn-fish oil 300 mg (120 mg- 180mg)-1,000 mg cap take 2 capsules by mouth at bedtime - VITAMIN D 25 mcg (1,000 unit) tab tablet take 1 tablet by mouth daily - pramipexole (MIRAPEX) 0.125 mg tablet Take 1 tablet by mouth daily at bedtime. - semaglutide (OZEMPIC) 0.25 mg or 0.5 mg(2 mg/1.5 mL) pen Inject 0.25 mg subcutaneously one time a week. - acamprosate DR (CAMPRAL) 333 mg tablet Take 2 tablets by mouth three times daily. - VITAMIN B-2 100 mg tab Take 4 tablets by mouth once daily. - verapamil SR (CALAN SR, ISOPTIN SR) 180 mg CR tablet Take 1 tablet by mouth daily at bedtime. - galcanezumab-gnlm (EMGALITY PEN) 120 mg/mL pen Inject 1 mL subcutaneously once every month. Do not shake. Start after completing 240mg loading dose. - Ascorbic Acid 1,000 mg tablet TAKE 1 TABLET BY MOUTH DAILY - aspirin, enteric coated (ECOTRIN LOW STRENGTH) 81 mg EC tablet Take 1 tablet by mouth once daily. - fluticasone (FLONASE) 50 mcg/actuation nasal spray use 2 (TWO) sprays IN EACH NOSTRIL DAILY AT BEDTIME - CPAP New set up: AutoCPAP 5-15 cm H2O, mask (pt pref), filters, heated humidity AND tubing. Lifetime supplies. SUSANNAH G47.33. - testosterone cypionate (DEPO-TESTOSTERONE) 200 mg/mL injection INJECT 0.5 ml INTRAMUSCULARLY EVERY TEN days. Meds Comments as of 06/19/2023: 11/16/22 No medication changes with the past 30 days. Mary Leyva RN 06/19/2023 Patient states that he is only taking amitriptyline, metoprolol and tizanidine. Shelby Camargo RN Problem List As Of Date 12/28/2023 Noted Resolved Radicular pain of right lower extremity [M54.10]07/21/2010 Vitamin D deficiency [E55.9] 07/21/2010 Lumbago [M54.50] 07/21/2010 Chronic pain [G89.29] 07/21/2010 12/27/2019 Misuse of drugs [F19.90] 10/19/2010 Opioid dependence [F11.20] 10/19/2010 (more content not included)... Normal [facility] CNOV Office Visit (OR[facility] ) -- JOSÉ ROJAS ([id number]) 1960 M Date Time Provider Department 12/28/23 1:45 PM RIK ROSENTHAL During your visit today, we recorded the following information about you: Rik Rosenthal MD 12/29/2023 1:05 PM Signed OPERATIVE REPORT: PROCEDURE: Left thumb CMC arthroplasty with Roni trapezoid ectomy DATE: 12/13/2023 SURGICAL PATHOLOGY: FINAL DIAGNOSIS A. Left hand, trapezoid bone, excision: - Degenerative joint disease. 2 weeks out. He is feeling good. No issues. PHYSICAL EXAM: All incisions are healing nicely with no signs of infection. Sensation intact in the median, radial, ulnar, superficial radial distribution. EPL and FPL intact. Smooth and painless circumduction of the CMC. Able make a full fist. Left thumb status post left thumb CMC arthroplasty and Roni trapezoid ectomy with expected postoperative results. PLAN: Refilled Percocet, thumb spica cast with the IP joint free, follow-up in 1 month for cast removal and initiation of removable brace and motion exercises with occupational therapy. Allergies As of Date: 12/28/2023 (No Known Allergies) Date Reviewed: 12/28/2023 Reviewed by: Tiburcio Jeffries RN - Fully Assessed Reason for Visit: Post Op [174] Primary Visit Diagnosis:Postoperative state [Z98.890] Order(s):CONSULT TO AIRCRAFT LOG CLERK [[id number]] Order #: [id number]: 1 FUTURE oxyCODONE-acetaminophen (PERCOCET) 5-325 mg tabletTake 1 tablet by mouth every 6 hours as needed for pain for up to 7 days.Disp: 28 tabletRfl: 0 Prescriptions as of 12/29/2023 - methocarbamol (ROBAXIN) 750 mg tablet Take 1 tablet by mouth three times a day. - oxyCODONE-acetaminophen (PERCOCET) 5-325 mg tablet Take 1 tablet by mouth every 6 hours as needed for pain for up to 7 days. - losartan (COZAAR) 50 mg tablet take 1 tablet by mouth every day - metoprolol succinate ER (TOPROL XL) 50 mg 24 hr tablet take 1 tablet by mouth at bedtime - oxyCODONE-acetaminophen (PERCOCET) 5-325 mg tablet Take 1 tablet by mouth every 6 hours as needed for pain for up to 7 days. Patient should start on December 22, 2023. - rosuvastatin (CRESTOR) 5 mg tablet take 1 tablet by mouth at bedtime - naproxen (NAPROSYN) 500 mg tablet TAKE 1 TABLET BY MOUTH TWICE DAILY NEEDED FOR PAIN (TAKE WITH FOOD) - pantoprazole DR (PROTONIX) 40 mg tablet take 1 tablet by mouth daily - escitalopram oxalate (LEXAPRO) 20 mg tablet TAKE 1 and ONE-HALF TABLETS BY MOUTH DAILY - LORazepam (ATIVAN) 0.5 mg Take 1 tablet by mouth daily at bedtime for 180 days. - tiZANidine (ZANAFLEX) 4 mg tablet TAKE 1 TABLET BY MOUTH TWICE DAILY NEEDED for headache - omega 3-xec-rpt-fish oil 300 mg (120 mg- 180mg)-1,000 mg cap take 2 capsules by mouth at bedtime - VITAMIN D 25 mcg (1,000 unit) tab tablet take 1 tablet by mouth daily - pramipexole (MIRAPEX) 0.125 mg tablet Take 1 tablet by mouth daily at bedtime. - semaglutide (OZEMPIC) 0.25 mg or 0.5 mg(2 mg/1.5 mL) pen Inject 0.25 mg subcutaneously one time a week. - acamprosate DR (CAMPRAL) 333 mg tablet Take 2 tablets by mouth three times daily. - VITAMIN B-2 100 mg tab Take 4 tablets by mouth once daily. - verapamil SR (CALAN SR, ISOPTIN SR) 180 mg CR tablet Take 1 tablet by mouth daily at bedtime. - galcanezumab-gnlm (EMGALITY PEN) 120 mg/mL pen Inject 1 mL subcutaneously once every month. Do not shake. Start after completing 240mg loading dose. - Ascorbic Acid 1,000 mg tablet TAKE 1 TABLET BY MOUTH DAILY - aspirin, enteric coated (ECOTRIN LOW STRENGTH) 81 mg EC tablet Take 1 tablet by mouth once daily. - fluticasone (FLONASE) 50 mcg/actuation nasal spray use 2 (TWO) sprays IN EACH NOSTRIL DAILY AT BEDTIME - CPAP New set up: AutoCPAP 5-15 cm H2O, mask (pt pref), filters, heated humidity AND tubing. Lifetime supplies. SUSANNAH G47.33. - testosterone cypionate (DEPO-TESTOSTERONE) 200 mg/mL injection INJECT 0.5 ml INTRAMUSCULARLY EVERY TEN days. Meds Comments as of 06/19/2023: 11/16/22 No medication changes with the past 30 days. Mary Leyva RN 06/19/2023 Patient states that he is only taking amitriptyline, metoprolol and tizanidine. Shelby Camargo RN Problem List As Of Date 12/28/2023 Noted Resolved Radicular pain of right lower extremity [M54.10]07/21/2010 Vitamin D deficiency [E55.9] 07/21/2010 Lumbago [M54.50] 07/21/2010 Chronic pain [G89.29] 07/21/2010 12/27/2019 Misuse of drugs [F19.90] 10/19/2010 Opioid dependence [F11.20] 10/19/2010 Myofascial pain syndrome [M79.18] 10/19/2010 Neck pain [M54.2] 05/24/2012 Lumbar spinal stenosis [M48.061] 09/01/2012 Testosterone deficiency [E34.9] 05/21/2013 Hypogonadism in male [E29.1] 07/09/2014 Osteoarthrosis, unspecified whether generalized*08/30/2014 Epididymal mass [N50.89] 09/04/2014 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] 09/26/2014 Right shoulder pain [M25.511] 12/11/2014 C (more content not included)... Normal [facility] CN Office Visit (ORAVON ) -- JOSÉ ROJAS ([id number]) 1960 M Date Time Provider Department 12/28/23 1:30 PM CAST TECH YANIRA ALEXANDER During your visit today, we recorded the following information about you: Zhou Astorga OCCA 12/28/2023 3:30 PM Signed PT ASSESSMENT - CASTING ROOM José presents for Application of cast. Applied short arm thumb spica cast, IP free: to Left arm. Patient has been instructed in Care of cast. MATEUS Lawrence Allergies As of Date: 12/28/2023 (No Known Allergies) Date Reviewed: 12/28/2023 Reviewed by: Tiburcio Jeffries RN - Fully Assessed Primary Visit Diagnosis:Postoperative state [Z98.890] Prescriptions as of 12/28/2023 - methocarbamol (ROBAXIN) 750 mg tablet Take 1 tablet by mouth three times a day. - oxyCODONE-acetaminophen (PERCOCET) 5-325 mg tablet Take 1 tablet by mouth every 6 hours as needed for pain for up to 7 days. - losartan (COZAAR) 50 mg tablet take 1 tablet by mouth every day - metoprolol succinate ER (TOPROL XL) 50 mg 24 hr tablet take 1 tablet by mouth at bedtime - oxyCODONE-acetaminophen (PERCOCET) 5-325 mg tablet Take 1 tablet by mouth every 6 hours as needed for pain for up to 7 days. Patient should start on December 22, 2023. - rosuvastatin (CRESTOR) 5 mg tablet take 1 tablet by mouth at bedtime - naproxen (NAPROSYN) 500 mg tablet TAKE 1 TABLET BY MOUTH TWICE DAILY NEEDED FOR PAIN (TAKE WITH FOOD) - pantoprazole DR (PROTONIX) 40 mg tablet take 1 tablet by mouth daily - escitalopram oxalate (LEXAPRO) 20 mg tablet TAKE 1 and ONE-HALF TABLETS BY MOUTH DAILY - LORazepam (ATIVAN) 0.5 mg Take 1 tablet by mouth daily at bedtime for 180 days. - tiZANidine (ZANAFLEX) 4 mg tablet TAKE 1 TABLET BY MOUTH TWICE DAILY NEEDED for headache - omega 0-mdg-ymx-fish oil 300 mg (120 mg- 180mg)-1,000 mg cap take 2 capsules by mouth at bedtime - VITAMIN D 25 mcg (1,000 unit) tab tablet take 1 tablet by mouth daily - pramipexole (MIRAPEX) 0.125 mg tablet Take 1 tablet by mouth daily at bedtime. - semaglutide (OZEMPIC) 0.25 mg or 0.5 mg(2 mg/1.5 mL) pen Inject 0.25 mg subcutaneously one time a week. - acamprosate DR (CAMPRAL) 333 mg tablet Take 2 tablets by mouth three times daily. - VITAMIN B-2 100 mg tab Take 4 tablets by mouth once daily. - verapamil SR (CALAN SR, ISOPTIN SR) 180 mg CR tablet Take 1 tablet by mouth daily at bedtime. - galcanezumab-gnlm (EMGALITY PEN) 120 mg/mL pen Inject 1 mL subcutaneously once every month. Do not shake. Start after completing 240mg loading dose. - Ascorbic Acid 1,000 mg tablet TAKE 1 TABLET BY MOUTH DAILY - aspirin, enteric coated (ECOTRIN LOW STRENGTH) 81 mg EC tablet Take 1 tablet by mouth once daily. - fluticasone (FLONASE) 50 mcg/actuation nasal spray use 2 (TWO) sprays IN EACH NOSTRIL DAILY AT BEDTIME - CPAP New set up: AutoCPAP 5-15 cm H2O, mask (pt pref), filters, heated humidity AND tubing. Lifetime supplies. SUSANNAH G47.33. - testosterone cypionate (DEPO-TESTOSTERONE) 200 mg/mL injection INJECT 0.5 ml INTRAMUSCULARLY EVERY TEN days. Meds Comments as of 06/19/2023: 11/16/22 No medication changes with the past 30 days. Mary Leyva RN 06/19/2023 Patient states that he is only taking amitriptyline, metoprolol and tizanidine. Shelby Camargo RN Problem List As Of Date 12/28/2023 Noted Resolved Radicular pain of right lower extremity [M54.10]07/21/2010 Vitamin D deficiency [E55.9] 07/21/2010 Lumbago [M54.50] 07/21/2010 Chronic pain [G89.29] 07/21/2010 12/27/2019 Misuse of drugs [F19.90] 10/19/2010 Opioid dependence [F11.20] 10/19/2010 Myofascial pain syndrome [M79.18] 10/19/2010 Neck pain [M54.2] 05/24/2012 Lumbar spinal stenosis [M48.061] 09/01/2012 Testosterone deficiency [E34.9] 05/21/2013 Hypogonadism in male [E29.1] 07/09/2014 Osteoarthrosis, unspecified whether generalized*08/30/2014 Epididymal mass [N50.89] 09/04/2014 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] 09/26/2014 Right shoulder pain [M25.511] 12/11/2014 Cigarette nicotine dependence without complicat*12/11/2014 Pain in both feet [M79.671, M79.672] 12/11/2014 03/21/2018 Bilateral low back pain without sciatica [M54.5*12/11/2014 Cervicalgia [M54.2] 12/11/2014 Pain in joint, multiple sites [M25.50] 12/11/2014 03/21/2018 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*01/29/2015 Fibromyalgia [M79.7] 01/29/2015 Chest pain [R07.9] 06/30/2015 Syncope [R55] 06/14/2016 Heart palpitations [R00.2] 06/14/2016 Dizziness [R42] 06/24/2016 Mixed hyperlipidemia [E78.2] 08/30/2016 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na*08/30/2016 Encounter for screening for malignant neoplasm *10/19/2016 Anxiety [F41.9] 01/07/2017 Osteoarthritis of right hip [M16.11] 02/15/2017 Medial meniscus tear [S83.249A] 02/15/2017 HTN (hypertension) [I10] Floaters, bilateral [H43.393] 08/25/2017 Asteroid hyalosis of right eye [H (more content not included)... [facility]OS[facility] ([id number]) 1960 M Date Time Provider Department 12/28/23 ANNETTA MCCANN During your visit today, we recorded the following information about you: Annetta Mccann MD 12/29/2023 8:37 AM Signed I believe I sent it to the pharmacy of his choice. [facility] in [place]. Let me know. Annetta Mccann MD 12/29/2023 8:37 AM Signed Addended by: ANNETTA MCCANN on: 12/29/2023 08:37 AM Modules accepted: Orders Mariama GabrielJASON 12/29/2023 8:53 AM Signed Called pt Pt verbalized understanding Closing encounter Allergies As of Date: 12/28/2023 (No Known Allergies) Date Reviewed: 12/28/2023 Reviewed by: Tiburcio Jeffries RN - Fully Assessed Order(s):methocarbamol (ROBAXIN) 750 mg tabletTake 1 tablet by mouth three times a day.Disp: 90 tabletRfl: 0 Prescriptions as of 12/29/2023 - methocarbamol (ROBAXIN) 750 mg tablet Take 1 tablet by mouth three times a day. - oxyCODONE-acetaminophen (PERCOCET) 5-325 mg tablet Take 1 tablet by mouth every 6 hours as needed for pain for up to 7 days. - losartan (COZAAR) 50 mg tablet take 1 tablet by mouth every day - metoprolol succinate ER (TOPROL XL) 50 mg 24 hr tablet take 1 tablet by mouth at bedtime - oxyCODONE-acetaminophen (PERCOCET) 5-325 mg tablet Take 1 tablet by mouth every 6 hours as needed for pain for up to 7 days. Patient should start on December 22, 2023. - rosuvastatin (CRESTOR) 5 mg tablet take 1 tablet by mouth at bedtime - naproxen (NAPROSYN) 500 mg tablet TAKE 1 TABLET BY MOUTH TWICE DAILY NEEDED FOR PAIN (TAKE WITH FOOD) - pantoprazole DR (PROTONIX) 40 mg tablet take 1 tablet by mouth daily - escitalopram oxalate (LEXAPRO) 20 mg tablet TAKE 1 and ONE-HALF TABLETS BY MOUTH DAILY - LORazepam (ATIVAN) 0.5 mg Take 1 tablet by mouth daily at bedtime for 180 days. - tiZANidine (ZANAFLEX) 4 mg tablet TAKE 1 TABLET BY MOUTH TWICE DAILY NEEDED for headache - omega 9-hpf-ysa-fish oil 300 mg (120 mg- 180mg)-1,000 mg cap take 2 capsules by mouth at bedtime - VITAMIN D 25 mcg (1,000 unit) tab tablet take 1 tablet by mouth daily - pramipexole (MIRAPEX) 0.125 mg tablet Take 1 tablet by mouth daily at bedtime. - semaglutide (OZEMPIC) 0.25 mg or 0.5 mg(2 mg/1.5 mL) pen Inject 0.25 mg subcutaneously one time a week. - acamprosate DR (CAMPRAL) 333 mg tablet Take 2 tablets by mouth three times daily. - VITAMIN B-2 100 mg tab Take 4 tablets by mouth once daily. - verapamil SR (CALAN SR, ISOPTIN SR) 180 mg CR tablet Take 1 tablet by mouth daily at bedtime. - galcanezumab-gnlm (EMGALITY PEN) 120 mg/mL pen Inject 1 mL subcutaneously once every month. Do not shake. Start after completing 240mg loading dose. - Ascorbic Acid 1,000 mg tablet TAKE 1 TABLET BY MOUTH DAILY - aspirin, enteric coated (ECOTRIN LOW STRENGTH) 81 mg EC tablet Take 1 tablet by mouth once daily. - fluticasone (FLONASE) 50 mcg/actuation nasal spray use 2 (TWO) sprays IN EACH NOSTRIL DAILY AT BEDTIME - CPAP New set up: AutoCPAP 5-15 cm H2O, mask (pt pref), filters, heated humidity AND tubing. Lifetime supplies. SUSANNAH G47.33. - testosterone cypionate (DEPO-TESTOSTERONE) 200 mg/mL injection INJECT 0.5 ml INTRAMUSCULARLY EVERY TEN days. Meds Comments as of 06/19/2023: 11/16/22 No medication changes with the past 30 days. Mary Leyva RN 06/19/2023 Patient states that he is only taking amitriptyline, metoprolol and tizanidine. Shelby Camargo RN Problem List As Of Date 12/28/2023 Noted Resolved Radicular pain of right lower extremity [M54.10]07/21/2010 Vitamin D deficiency [E55.9] 07/21/2010 Lumbago [M54.50] 07/21/2010 Chronic pain [G89.29] 07/21/2010 12/27/2019 Misuse of drugs [F19.90] 10/19/2010 Opioid dependence [F11.20] 10/19/2010 Myofascial pain syndrome [M79.18] 10/19/2010 Neck pain [M54.2] 05/24/2012 Lumbar spinal stenosis [M48.061] 09/01/2012 Testosterone deficiency [E34.9] 05/21/2013 Hypogonadism in male [E29.1] 07/09/2014 Osteoarthrosis, unspecified whether generalized*08/30/2014 Epididymal mass [N50.89] 09/04/2014 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] 09/26/2014 Right shoulder pain [M25.511] 12/11/2014 Cigarette nicotine dependence without complicat*12/11/2014 Pain in both feet [M79.671, M79.672] 12/11/2014 03/21/2018 Bilateral low back pain without sciatica [M54.5*12/11/2014 Cervicalgia [M54.2] 12/11/2014 Pain in joint, multiple sites [M25.50] 12/11/2014 03/21/2018 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*01/29/2015 Fibromyalgia [M79.7] 01/29/2015 Chest pain [R07.9] 06/30/2015 Syncope [R55] 06/14/2016 Heart palpitations [R00.2] 06/14/2016 Dizziness [R42] 06/24/2016 Mixed hyperlipidemia [E78.2] 08/30/2016 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na*08/30/2016 Encounter for screening for malignant neoplasm *10/19/2016 Anxiety [F41.9] 01/07/2017 Osteoarthritis of right hip [M16.11] 10 (more content not included)... Normal [facility] XR DIGIT 3V FRONTAL/LAT/OBL LTon 12-28-2023 XR DIGIT 3V FRONTAL/LAT/OBL LT * * *Final Report* * * DATE OF EXAM: Dec 28 2023 2:43PM AFR [id number] - XR DIGIT 3V FRONTAL/LAT/OBL LT / PROCEDURE REASON: Post-operative state * * * * Physician Interpretation * * * * HISTORY (as given from clinical provider): Post-operative state . Additional history provided by the performing technologist (if any): --> 3 WEEK FX F/U LT THUMB TECHNIQUE: XR DIGIT 3V FRONTAL/LAT/OBL LT COMPARISON: 10/24/2023 RESULT: Trapezium resection and osteotomy at the base of the thumb metacarpal bone. Expected postsurgical appearance. No other significant abnormality. Firer Boiler: PSCB Transcribe Date/Time: Dec 28 2023 2:50P Dictated by : MIRNA MÉNDEZ MD This examination was interpreted and the report reviewed and electronically signed by: MIRNA MÉNDEZ MD on Dec 28 2023 2:51PM EST [id number] Normal [facility] XR Finger - left AP and Late ral and obliqueon 12-28-2023 * * *Final Report* * * DATE OF EXAM: Dec 28 2023 2:43PM AFR [id number] - XR DIGIT 3V FRONTAL/LAT/OBL LT / PROCEDURE REASON: Post-operative state * * * * Physician Interpretation * * * * HISTORY (as given from clinical provider): Post-operative state . Additional history provided by the performing technologist (if any): --> 3 WEEK FX F/U LT THUMB TECHNIQUE: XR DIGIT 3V FRONTAL/LAT/OBL LT COMPARISON: 10/24/2023 RESULT: Trapezium resection and osteotomy at the base of the thumb metacarpal bone. Expected postsurgical appearance. No other significant abnormality. Firer Boiler: [facility] [employer] Transcribe Date/Time: Dec 28 2023 2:50P Dictated by : MIRNA MÉNDEZ MD This examination was interpreted and the report reviewed and electronically signed by: MIRNA MÉNDEZ MD on Dec 28 2023 2:51PM EST DIVISION OF RADIOLOGY Provider, [facility] - 12/28/2023 * * *Final Report* * * DATE OF EXAM: Dec 28 2023 2:43PM AFR [id number] - XR DIGIT 3V FRONTAL/LAT/OBL LT / PROCEDURE REASON: Post-operative state * * * * Physician Interpretation * * * * HISTORY (as given from clinical provider): Post-operative state . Additional history provided by the performing technologist (if any): --> 3 WEEK FX F/U LT THUMB TECHNIQUE: XR DIGIT 3V FRONTAL/LAT/OBL LT COMPARISON: 10/24/2023 RESULT: Trapezium resection and osteotomy at the base of the thumb metacarpal bone. Expected postsurgical appearance. No other significant abnormality. Firer Boiler: LASHAE Transcribe Date/Time: Dec 28 2023 2:50P Dictated by : MIRNA MÉNDEZ MD This examination was interpreted and the report reviewed and electronically signed by: MIRNA MÉNDEZ MD on Dec 28 2023 2:51PM EST [facility] Radiology Study observation (narrative) [facility] XR Finger - left AP and Late ral and obliqueOrdered By: Ccf Provider on 12-28-2023 [facility] CNPNon 12-23-2023 CNPN Telephone (4CQ) -- JOSÉ ROJAS ([id number]) 1960 M Date Time Provider Department 12/23/23 ROSA ROBERTSON 4CQ During your visit today, we recorded the following information about you: Jamee Daley 12/23/2023 2:19 PM Signed José is calling Rosa Rboertson MD today stating that he has been prescribed percocet by Dr. Rosenthal for his carpal tunnel and yesterday he had a pretty bad fall and was seen at [facility]. He is now having back pain and is asking if he can increase dose of percocet. Please advise. Patient has been identified by name and birthdate. Duration of symptoms: N/A Person calling: self Call patient at: on cell [phone] (home) [phone] (cell) Was an appointment scheduled: No Closing statement: Symptom Call: Thank you for calling [facility], your call is very important. A nurse will call in approximately 2-4 hours during business hours. If this is an emergency, please contact 911. Elisa Hameed PA-C 12/23/2023 2:43 PM Signed Please call. Dr. Robertson is out of the office today. I don't recommend that he increase his percocet. If he is having more pain after a fall, then he should be evaluated. If nothing available on tomorrow's schedule, then recommend Urgent Care. Jayde Travis MA 12/23/2023 2:48 PM Signed Spoke with patient He stated that he is interested in seeing any available provider Please see if he can be placed on Tuesday schedule. Chavo Abdi 12/24/2023 9:43 AM Signed Lvm Sent Xochitl Epperson 12/26/2023 11:39 AM Signed OV scheduled with Dr. Mccann on 12/28/2023 Allergies As of Date: 12/23/2023 (No Known Allergies) Date Reviewed: 12/13/2023 Reviewed by: Rosalba Pavon RN - Fully Assessed Reason for Visit: Patient Question [1477] Prescriptions as of 12/26/2023 - oxyCODONE-acetaminophen (PERCOCET) 5-325 mg tablet Take 1 tablet by mouth every 6 hours as needed for pain for up to 7 days. Patient should start on December 22, 2023. - rosuvastatin (CRESTOR) 5 mg tablet take 1 tablet by mouth at bedtime - naproxen (NAPROSYN) 500 mg tablet TAKE 1 TABLET BY MOUTH TWICE DAILY NEEDED FOR PAIN (TAKE WITH FOOD) - pantoprazole DR (PROTONIX) 40 mg tablet take 1 tablet by mouth daily - escitalopram oxalate (LEXAPRO) 20 mg tablet TAKE 1 and ONE-HALF TABLETS BY MOUTH DAILY - LORazepam (ATIVAN) 0.5 mg Take 1 tablet by mouth daily at bedtime for 180 days. - tiZANidine (ZANAFLEX) 4 mg tablet TAKE 1 TABLET BY MOUTH TWICE DAILY NEEDED for headache - omega 0-uuq-cya-fish oil 300 mg (120 mg- 180mg)-1,000 mg cap take 2 capsules by mouth at bedtime - VITAMIN D 25 mcg (1,000 unit) tab tablet take 1 tablet by mouth daily - pramipexole (MIRAPEX) 0.125 mg tablet Take 1 tablet by mouth daily at bedtime. - semaglutide (OZEMPIC) 0.25 mg or 0.5 mg(2 mg/1.5 mL) pen Inject 0.25 mg subcutaneously one time a week. - metoprolol succinate ER (TOPROL XL) 50 mg 24 hr tablet TAKE 1 TABLET BY MOUTH DAILY AT BEDTIME - losartan (COZAAR) 50 mg tablet TAKE 1 TABLET BY MOUTH DAILY - acamprosate DR (CAMPRAL) 333 mg tablet Take 2 tablets by mouth three times daily. - VITAMIN B-2 100 mg tab Take 4 tablets by mouth once daily. - verapamil SR (CALAN SR, ISOPTIN SR) 180 mg CR tablet Take 1 tablet by mouth daily at bedtime. - galcanezumab-gnlm (EMGALITY PEN) 120 mg/mL pen Inject 1 mL subcutaneously once every month. Do not shake. Start after completing 240mg loading dose. - Ascorbic Acid 1,000 mg tablet TAKE 1 TABLET BY MOUTH DAILY - aspirin, enteric coated (ECOTRIN LOW STRENGTH) 81 mg EC tablet Take 1 tablet by mouth once daily. - fluticasone (FLONASE) 50 mcg/actuation nasal spray use 2 (TWO) sprays IN EACH NOSTRIL DAILY AT BEDTIME - CPAP New set up: AutoCPAP 5-15 cm H2O, mask (pt pref), filters, heated humidity AND tubing. Lifetime supplies. SUSANNAH G47.33. - testosterone cypionate (DEPO-TESTOSTERONE) 200 mg/mL injection INJECT 0.5 ml INTRAMUSCULARLY EVERY TEN days. Meds Comments as of 06/19/2023: 11/16/22 No medication changes with the past 30 days. Mary Leyva RN 06/19/2023 Patient states that he is only taking amitriptyline, metoprolol and tizanidine. Shelby Camargo RN Problem List As Of Date 12/23/2023 Noted Resolved Radicular pain of right lower extremity [M54.10]07/21/2010 Vitamin D deficiency [E55.9] 07/21/2010 Lumbago [M54.50] 07/21/2010 Chronic pain [G89.29] 07/21/2010 12/27/2019 Misuse of drugs [F19.90] 10/19/2010 Opioid dependence [F11.20] 10/19/2010 Myofascial pain syndrome [M79.18] 10/19/2010 Neck pain [M54.2] 05/24/2012 Lumbar spinal stenosis [M48.061] 09/01/2012 Testosterone deficiency [E34.9] 05/21/2013 Hypogonadism in male [E29.1] 07/09/2014 Osteoarthrosis, unspecified whether generalized*08/30/2014 Epididymal mass [N50.89] 09/04/2014 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 Normal [facility] CNPNon 12-16-2023 CNPN Telephone (LOORRM) -- JOSÉ ROJAS ([id number]) 1960 M Date Time Provider Department 12/16/23 RIK ROSENTHAL During your visit today, we recorded the following information about you: Siria Betancourt 12/16/2023 1:24 PM Addendum Patient requesting Medication Refill for Pain. 5 mg unable to give name of desired medication refill to me. (See previous encounter date 12/13/23) Patient requesting to speak with Nurse nonprofit financial controller about Condition of his fingers. Transferred to [id number], Ortho Nurse Triage Line for further assistance. Karli Acevedo PA-C 12/16/2023 2:59 PM Signed Called patient to discuss current pain. He states pain is maybe somewhat improving but is still pretty significant. He only has about 6 tablets left after discussing with Dr. Rosenthal he was taking 1 to 2 tablets every 4 hours. Will send a refill for Percocet to his pharmacy with the instructions to take 1 every 4 hours, encouraged to space this out to every 6 hours as he gets further out from surgery. Also stated that he can supplement with naproxen or other NSAIDs while using Percocet. He has good capillary refill and no numbness or tingling, offered to arrange an appointment for a splint change in case this is too tight and contributing to his symptoms. Patient lines at this time, he will reach out to the office if he changes his mind. Discussed red flag symptoms to present to the ED if anything changes. Karli Acevedo PA-C December 16, 2023 2:59 PM Karli Acevedo PA-C 12/16/2023 2:59 PM Signed Addended by: KARLI ACEVEDO on: 12/16/2023 02:59 PM Modules accepted: Orders Allergies As of Date: 12/16/2023 (No Known Allergies) Date Reviewed: 12/13/2023 Reviewed by: Rosalba Pavon RN - Fully Assessed Reason for Visit: Medication Problem [65] Patient Update [1234] Cmt: Medication Refill / Nurse Triage Call Request Visit Diagnosis:Primary arthrosis of first carpometacarpal joints, bilateral [M18.0] Order(s):[START ON 12/17/2023] oxyCODONE-acetaminophen (PERCOCET) 5-325 mg tabletTake 1 tablet by mouth every 4 hours as needed for pain for up to 5 days. Patient should start on December 17, 2023.Disp: 30 tabletRfl: 0 Prescriptions as of 12/16/2023 - oxyCODONE-acetaminophen (PERCOCET) 5-325 mg tablet Take 1 tablet by mouth every 4 hours as needed for pain for up to 5 days. Patient should start on December 17, 2023. - rosuvastatin (CRESTOR) 5 mg tablet take 1 tablet by mouth at bedtime - naproxen (NAPROSYN) 500 mg tablet TAKE 1 TABLET BY MOUTH TWICE DAILY NEEDED FOR PAIN (TAKE WITH FOOD) - pantoprazole DR (PROTONIX) 40 mg tablet take 1 tablet by mouth daily - escitalopram oxalate (LEXAPRO) 20 mg tablet TAKE 1 and ONE-HALF TABLETS BY MOUTH DAILY - LORazepam (ATIVAN) 0.5 mg Take 1 tablet by mouth daily at bedtime for 180 days. - tiZANidine (ZANAFLEX) 4 mg tablet TAKE 1 TABLET BY MOUTH TWICE DAILY NEEDED for headache - omega 7-xvo-yda-fish oil 300 mg (120 mg- 180mg)-1,000 mg cap take 2 capsules by mouth at bedtime - VITAMIN D 25 mcg (1,000 unit) tab tablet take 1 tablet by mouth daily - pramipexole (MIRAPEX) 0.125 mg tablet Take 1 tablet by mouth daily at bedtime. - semaglutide (OZEMPIC) 0.25 mg or 0.5 mg(2 mg/1.5 mL) pen Inject 0.25 mg subcutaneously one time a week. - metoprolol succinate ER (TOPROL XL) 50 mg 24 hr tablet TAKE 1 TABLET BY MOUTH DAILY AT BEDTIME - losartan (COZAAR) 50 mg tablet TAKE 1 TABLET BY MOUTH DAILY - acamprosate DR (CAMPRAL) 333 mg tablet Take 2 tablets by mouth three times daily. - VITAMIN B-2 100 mg tab Take 4 tablets by mouth once daily. - verapamil SR (CALAN SR, ISOPTIN SR) 180 mg CR tablet Take 1 tablet by mouth daily at bedtime. - galcanezumab-gnlm (EMGALITY PEN) 120 mg/mL pen Inject 1 mL subcutaneously once every month. Do not shake. Start after completing 240mg loading dose. - Ascorbic Acid 1,000 mg tablet TAKE 1 TABLET BY MOUTH DAILY - aspirin, enteric coated (ECOTRIN LOW STRENGTH) 81 mg EC tablet Take 1 tablet by mouth once daily. - fluticasone (FLONASE) 50 mcg/actuation nasal spray use 2 (TWO) sprays IN EACH NOSTRIL DAILY AT BEDTIME - CPAP New set up: AutoCPAP 5-15 cm H2O, mask (pt pref), filters, heated humidity AND tubing. Lifetime supplies. SUSANNAH G47.33. - testosterone cypionate (DEPO-TESTOSTERONE) 200 mg/mL injection INJECT 0.5 ml INTRAMUSCULARLY EVERY TEN days. Meds Comments as of 06/19/2023: 11/16/22 No medication changes with the past 30 days. Mary Leyva RN 06/19/2023 Patient states that he is only taking amitriptyline, metoprolol and tizanidine. Shelby Camargo RN Problem List As Of Date 12/16/2023 Noted Resolved Radicular pain of right lower extremity [M54.10]07/21/2010 Vitamin D deficiency [E55.9] 07/21/2010 Lumbago [M54.50] 07/21/2010 Chronic pain [G89.29] 07/21/2010 12/27/2019 Misuse of drugs [F19.90] 10/19/2010 Opioid depende (more content not included)... Normal [facility] ANES POSTPROC EVALon 13-2 024 ANES POSTPROC EVAL HNO ID: [id number] Author: CAYETANO DRAKE II, DO Service: Anesthesiology Author Type: Anesthesiologist Type: Anesthesia Postprocedure Evaluation Filed: 12/13/2023 14:28 Note Text: POST ANESTHESIA EVALUATION NOTE : 1960 Procedure Summary Date: 12/13/23 Room / Location: [address] Anesthesia Start: 732 Anesthesia Stop: 1044 Procedure: ARTHROPLASTY CARPOMETACARPAL JOINTS (Left: Finger thumb) Diagnosis: Primary arthrosis of first carpometacarpal joints, bilateral (Primary arthrosis of first carpometacarpal joints, bilateral [M18.0]) Surgeons: Rik Rosenthal MD Responsible Provider: Cayetano Drake II, DO Anesthesia Type: general ASA Status: 3 Anesthesia Type: general Airway Type: LMA Last Vitals Vitals Value Taken Time BP 131/66 12/13/23 1120 Temp 36.2 ?C (97.2 ?F) 12/13/23 1039 HR SpO2 78 12/13/23 1120 Resp 18 12/13/23 1120 SpO2 95 % 12/13/23 1120 Post Anesthesia Patient Status Patient Evaluation: PACU. PACU/ICU Patient Condition: stable. Neurological Status: aware and responsive. Pulmonary Status: breathing comfortably on room air Airway Control: returned to baseline unsupported. Cardiovascular Status: stable. Pain Management: clinically adequate Postoperative Hydration: acceptable. Intraoperative Events: no significant anesthesia events Post Operative Nausea/Vomiting Status: no significant post operative nausea or vomiting Recommendation: continue current plan of care. Anesthesia Observations No Documentation SIGNATURE: Cayetano Drake II, DO PATIENT NAME: José Rojas DATE: December 13, 2023 TIME: 2:28 PM CSN: [id number] Normal [facility] ANES PRE-OPon 12-13-2023 ANES PRE-OP HNO ID: [id number] Author: CAYETANO DRAKE II, DO Service: Anesthesiology Author Type: Anesthesiologist Type: Anesthesia Preprocedure Evaluation Filed: 12/13/2023 07:19 Note Text: ANESTHESIOLOGY DAY OF SURGERY NOTE : 1960 Procedure Information Date/Time: 12/13/23 0730 Procedure: ARTHROPLASTY CARPOMETACARPAL JOINTS (Left: Finger thumb) Location: [address] [place] Surgeons: Rik Rosenthal MD Estimated body mass index is 26.29 kg/m? as calculated from the following: Height as of 11/29/23: 180.3 cm (5' 11 ). Weight as of 11/29/23: 85.5 kg (188 lb 7.9 oz). Most recent hematocrit and potassium results: Hematocrit 48.0 02/26/2022 Potassium 4.3 12/12/2023 Relevant Problems No relevant active problems I - PHYSICAL EVALUATION AIRWAY Patient intubated: No. Tracheostomy tube not present Mallampati: III. TM distance: >3 FB. Neck ROM: limited extension. Mouth opening: adequate. Short neck: no. Thick neck: no DENTAL Dental findings: teeth intact. Additional exam findings: yes. CARDIOVASCULAR Rhythm: regular Rate: normal PULMONARY Breath sounds clear to auscultation. II - ANESTHESIA PLAN ASA Score: 3 Anesthetic Plan: general Airway type: LMA The patient is a current smoker. NPO Status: adequate Beta Janette Monitoring Plan Monitoring plan: standard ASA. Post Procedure Analgesic Plan Postoperative analgesic plan: parenteral or oral opioids and peripheral nerve block. Informed Consent Anesthetic risks, benefits, alternatives, personnel and consent discussed: yes. Patient / Responsible Democrat agrees to proceed: yes Patient / Surrogate agrees to blood products: Yes Vitals Value Taken Time BP 160/93 12/13/23 0659 Pulse Resp 16 12/13/23 0659 Temp 36.2 ?C (97.1 ?F) 12/13/23 0659 SpO2 99 % 12/13/23 0659 Facility-Administered Medications as of 12/13/2023 Medication Dose Route Frequency - lidocaine (PF) 10 mg/mL (1 %) 1-2 mg injection (XYLOCAINE) 0.1-0.2 mL INTRADERMAL PRN - lactated ringers iv infusion 5-30 mL/hr INTRAVENOUS CONTINUOUS - NaCl 0.9% iv flush bag 20 mL INTRAVENOUS PRN - ceFAZolin 2 g in dextrose (iso-osmotic) 50 mL (ANCEF,KEFZOL) 2 g INTRAVENOUS Pre-Op Once Outpatient Medications as of 12/13/2023 Medication Sig - rosuvastatin (CRESTOR) 5 mg tablet take 1 tablet by mouth at bedtime - naproxen (NAPROSYN) 500 mg tablet TAKE 1 TABLET BY MOUTH TWICE DAILY NEEDED FOR PAIN (TAKE WITH FOOD) - pantoprazole DR (PROTONIX) 40 mg tablet take 1 tablet by mouth daily - escitalopram oxalate (LEXAPRO) 20 mg tablet TAKE 1 and ONE-HALF TABLETS BY MOUTH DAILY - LORazepam (ATIVAN) 0.5 mg Take 1 tablet by mouth daily at bedtime for 180 days. - tiZANidine (ZANAFLEX) 4 mg tablet TAKE 1 TABLET BY MOUTH TWICE DAILY NEEDED for headache - omega 3-clx-gdb-fish oil 300 mg (120 mg- 180mg)-1,000 mg cap take 2 capsules by mouth at bedtime - VITAMIN D 25 mcg (1,000 unit) tab tablet take 1 tablet by mouth daily - pramipexole (MIRAPEX) 0.125 mg tablet Take 1 tablet by mouth daily at bedtime. - metoprolol succinate ER (TOPROL XL) 50 mg 24 hr tablet TAKE 1 TABLET BY MOUTH DAILY AT BEDTIME - losartan (COZAAR) 50 mg tablet TAKE 1 TABLET BY MOUTH DAILY - acamprosate DR (CAMPRAL) 333 mg tablet Take 2 tablets by mouth three times daily. - VITAMIN B-2 100 mg tab Take 4 tablets by mouth once daily. - Ascorbic Acid 1,000 mg tablet TAKE 1 TABLET BY MOUTH DAILY - fluticasone (FLONASE) 50 mcg/actuation nasal spray use 2 (TWO) sprays IN EACH NOSTRIL DAILY AT BEDTIME - semaglutide (OZEMPIC) 0.25 mg or 0.5 mg(2 mg/1.5 mL) pen Inject 0.25 mg subcutaneously one time a week. - galcanezumab-gnlm (EMGALITY PEN) 120 mg/mL pen Inject 1 mL subcutaneously once every month. Do not shake. Start after completing 240mg loading dose. - CPAP New set up: AutoCPAP 5-15 cm H2O, mask (pt pref), filters, heated humidity AND tubing. Lifetime supplies. SUSANNAH G47.33. - testosterone cypionate (DEPO-TESTOSTERONE) 200 mg/mL injection INJECT 0.5 ml INTRAMUSCULARLY EVERY TEN days. I have interviewed and examined the patient. I have reviewed the medical record and/or the pre-anesthesia evaluation, pertinent labs, and test results. This contains updated information obtained within 48 hours of Surgery/Procedure. SIGNATURE: Cayetano Drake II, DO PATIENT NAME: José Rojas DATE: December 13, 2023 TIME: 7:18 AM CSN: [id number] [facility] BRIEF OP NOTon 12-13-2023 BRIEF OP NOT HNO ID: [id number] Author: RIK ROSENTHAL MD Service: Orthopaedic Surgery Author Type: Physician Type: Brief Op Note Filed: 12/13/2023 10:21 Note Text: BRIEF OPERATIVE / PROCEDURE NOTE LOG ID: [id number] SURGERY/PROCEDURE DATE: 12/13/2023 INCISION/PROCEDURE START TIME: 8:18 AM INCISION CLOSE/PROCEDURE END TIME: 10:20 AM SURGEON(S)/PROCEDURALIST(S ) AND ACCOUNTS PAYABLE BOOKKEEPER(S): Surgeon(s) and Role: * Rik Rosenthal MD - Primary Physician Automotive Sales Specialist: Karli Acevedo PA-C SURGERY/PROCEDURE(S): Left thumb carpometacarpal arthroplasty with Roni trapezoid ectomy ANESTHESIA: General And block FINDINGS: ortiz - Trapezial DJD, no MP hyperextension ESTIMATED BLOOD LOSS: 0 ml SPECIMENS: Left trapezium COMPLICATIONS: None CLOSURE TECHNIQUE: Primary PRE-OP/PRE-PROCEDURE DIAGNOSIS: Left thumb first CMC DJD, primary POST-OP/POST-PROCEDURE DIAGNOSIS: Same as Preop Patient was accompanied to the next level of care by a licensed practitioner from the surgical team pending completion of this brief op note (or operative note) SIGNATURE: Rik Rosenthal MD PATIENT NAME: José Rojas DATE: December 13, 2023 TIME: 10:11 AM [facility] OPERATIVE NOon 12-13-2023 OPERATIVE NO HNO ID: [id number] Author: RIK ROSENTHAL MD Service: Orthopaedic Surgery Author Type: Physician Type: Operative Report Filed: 12/13/2023 10:22 Note Text: Operative note Patient name: José Rojas SURGERY/PROCEDURE DATE: 12/13/2023 INCISION/PROCEDURE START TIME: 8:18 AM INCISION CLOSE/PROCEDURE END TIME: 10:20 AM SURGEON(S)/PROCEDURALIST(S ) AND ACCOUNTS PAYABLE BOOKKEEPER(S): Surgeon(s) and Role: * Rik Rosenthal MD - Primary Physician Automotive Sales Specialist: Karli Acevedo PA-C SURGERY/PROCEDURE(S): Left thumb carpometacarpal arthroplasty with Roni trapezoid ectomy ANESTHESIA: General And block FINDINGS: ortiz - Trapezial DJD, no MP hyperextension ESTIMATED BLOOD LOSS: 0 ml SPECIMENS: Left trapezium COMPLICATIONS: None CLOSURE TECHNIQUE: Primary PRE-OP/PRE-PROCEDURE DIAGNOSIS: Left thumb first CMC DJD, primary POST-OP/POST-PROCEDURE DIAGNOSIS: Same as Preop Indications: Patient is a 63 year old male who has failed conservative treatment for the above named diagnosis. After discussion of risks, benefits, alternatives, he agreed to the above-named procedure. Procedure: Patient was seen in PACU and informed consent was verified. The left thumb was marked with the operating surgeon's initials. The patient was then taken to the operative theater where a regional block was done by the anesthesia service. General anesthesia was then given and preoperative antibiotics given as well. Tourniquet was placed on the left upper extremity and then the left upper extremity was prepped and draped in the usual sterile fashion. After surgical timeout, I exsanguinated the left upper extremity with the Esmarch and raised the tourniquet to 2 50 mmHg. I then turned my attention to the basal joint. A rslzeh-kupog-fuwhyy incision was made with its apex at the trapezium extending distally down the dorsum of the thumb metacarpal. The trapezium was then subperiosteally exposed. A 0.062 K wire was used as a joystick to aid in trapezial removal. The trapezium was removed in 1 piece, protecting the floor of the sheath below. 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 Thus we did a Roni trapezoid ectomy. I used a sagittal saw followed by an osteotome and mallet to remove the proximal one third of the trapezoid such that there was no more impingement between the scaphoid and trapezoid. Next, the base of the metacarpal was then squared off with a sagittal saw. The FCR was harvested through a 1 cm incision in the distal third of the forearm at about the musculotendinous junction. The tendon was divided proximally and withdrawn into the distal incision. A 2-0 Ethibond suture was placed in the trapezial space as distal as possible with the tails left long. A 4 mm drill hole was then made beginning about a centimeter distal to the base of metacarpal dorsally and angling toward the FCR insertion at the index metacarpal base. The FCR tendon was then passed through this hole from proximal to distal. The tendon was then folded back and sutured to itself, creating a sling to support the metacarpal base. This was sutured in place with a 2-0 Ethibond suture. The remaining portion of the FCR was then sutured in zigzag fashion to the sutures originally placed in the base of the trapezial space, creating an interposition to aid in support in the metacarpal. The wounds were then irrigated. The sutures at the end of the interposition were then passed through the dorsal portion of the trapezial capsule to assure that there would be no dislocation of the interposition. Care was taken to identify and protect the superficial radial nerve and radial artery. The capsule was then securely repaired with interrupted 4-0 PDS suture. Finally, the extensor pollicis brevis tendon was divided distally. This was sutured to the capsule, with the end placed in the hole where the FCR exited the metacarpal base, converting the EPB from an MP extensor to basal joint extensor. The wounds were irrigated and the skin was closed with 4-0 PDS, 4-0 Monocryl and skin glue. Sterile dressings and a short arm thumb spica splint were applied. The patient tolerated the procedure well. There were no complications. Patient was awakened from anesthesia and taken to the PACU in stable condition. No qualified resident was available to assist. Karli PAL assisted with retraction and skin closure. I performed the remainder of the case. I was present for and immediately available throughout the entire case. Narcotic medication dose and quantity may exceed [place] state limits due to the medical necessity for post operative pain control required for the surgical procedure performed on [facility] December 13, 2023. Normal [facility] SURGICAL PATHOLOGYon 024 CASE REPORT Normal [facility] Comment on above: Order Comment: Speci men Type: TISSUE SPECIMENOrdering Facility: [facility] Address: [address] [place] [address] Result Comment: Surg [facility] Pathology Report Case: [id number]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 07/09/2014 Osteoarthrosis, unspecified whether generalized*08/30/2014 Epididymal mass [N50.89] 09/04/2014 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] 09/26/2014 Right shoulder pain [M25.511] 12/11/2014 Cigarette nicotine dependence without complicat*12/11/2014 Pain in both feet [M79.671, M79.672] 12/11/2014 03/21/2018 Bilateral low back pain without sciatica [M54.5*12/11/2014 Cervicalgia [M54.2] 12/11/2014 Pain in joint, multiple sites [M25.50] 12/11/2014 03/21/2018 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*01/29/2015 Fibromyalgia [M79.7] 01/29/2015 Chest pain [R07.9] 06/30/2015 Syncope [R55] 06/14/2016 Heart palpitations [R00.2] 06/14/2016 Dizziness [R42] 06/24/2016 Mixed hyperlipidemia [E78.2] 08/30/2016 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na*08/30/2016 Encounter for screening for malignant neoplasm *10/19/2016 Anxiety [F41.9] 01/07/2017 Osteoarthritis of right hip [M16.11] 02/15/2017 Medial meniscus tear [S83.249A] 02/15/2017 HTN (hypertension) [I10] Floaters, bilateral [H43.393] 08/25/2017 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 Normal [facility] CNOVon 10-24-2023 CNOV Office Visit (LOORRM ) -- JOSÉ ROJAS ([id number]) 1960 M Date Time Provider Department 10/24/23 1:45 PM RIK ROSENTHALORR During your visit today, we recorded the following information about you: Rik Rosenthal MD 10/24/2023 4:20 PM Signed The patient is sent for evaluation and an opinion regarding treatment by Facundo Pena, who will receive a copy of this report by mail or through the shared medical record. CHIEF COMPLAINT: José Rojas is a 63 year old male who presents today for new evaluation of bilateral thumbs. 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 He has not had any surgery for this. He did have a left thumb extensor tendon laceration repair at the level of the IP joint and has residual numbness from this. He has had injections over the years by Dr. Pena that helped initially but do not help anymore. At this point he is hopeful for surgery. He does have a heart stent but no diabetes or inflammatory arthritis. Previous treatment or work-up includes: As above. ROS: REVIEW OF SYSTEMS: Constitutional: Fever/chills: No Cardiovascular: Chest Pain: No Respiratory: SOB: No Musculoskeletal: as noted in the HPI Neurologic: as noted in the HPI Endocrine: Diabetes: No Tobacco user? Yes SOCIAL HISTORY: Tobacco Use: .5 packs/day, for 10 years. Types: Cigarettes FAMILY HISTORY: FAMILY HISTORY Problem Relation Age of Onset other (back pain) Father neck spurs Heart Mother 45 NM, arthritis other (back pain) Brother None Sister x2, FM PAST MEDICAL HISTORY Diagnosis Date Acquired hallux limitus of left foot Acute NM (HCC) 08/2007 angina - bare metal stent x1 - to see Dr Ortiz 08/30 Arthritis of right hip inj helps - needs THR, 06/15/17:insurance did not approve Back pain 10/14/2015 pain management rec CPRP - do not refill percocet - 07/08/17:send to [facility] Chronic pain of toe of left foot Depression zoloft spinning couldn't get going, prozac creating action (act on neighbor) - celexa ETOH abuse Fibromyalgia 05/22/20:saw pain psychologist, used mental control to ignore pains GERD (gastroesophageal reflux disease) aciphex Hematuria 2019 saw urology in [place] Hiatal hernia History of PTCA Dr Germain HTN (hypertension) lisinopril Hyperlipidemia lipitor Insomnia 04/16/2022 lexapro, amitryptilline 50 mg qhs, sleeping well Lung nodule 10/16/2014 6 mm - recheck at 1 yr and 2 yrs NEGATIVE HISTORY OF No pn,tb,ca,dm Spinal stenosis 1995 accident went to PT - neck, mid back, right leg, 10/09, percocet /2 tid - Dr Brooks (pain management) - tried fentayl, methadone Testicular lump s/p removal, benign - testosterone - Dr Valentine PAST SURGICAL HISTORY Procedure Laterality Date APPENDECTOMY 1983 PAST SURGICAL HISTORY OF 2008 one coronary stent/heart cath with stent PAST SURGICAL HISTORY OF 08/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 PAST SURGICAL HISTORY OF colonoscopy PAST SURGICAL HISTORY OF Left arthroscopy left knee PAST SURGICAL HISTORY OF Right shoulder and bicep PAST SURGICAL HISTORY OF Right hip PAST SURGICAL HISTORY OF Left toe TOTAL HIP REPLACEMENT Right 06/2022 FAMILY HISTORY Problem Relation Age of Onset other (back pain) Father neck spurs Heart Mother 45 NM, arthritis other (back pain) Brother None Sister x2, FM Social History Tobacco Use Smoking status: Every Day Packs/day: 0.50 Years: 10.00 Additional pack years: 0.00 Total pack years: 5.00 Types: Cigarettes Smokeless tobacco: Current Substance Use Topics Alcohol use: Not Currently Alcohol/week: 14.0 standard drinks of alcohol Types: 14 Cans of Beer (12oz) per week Comment: patient reports stopped drinking 01/2022 was drinking 375 mL bourbon a day Drug use: No ALLERGIES No Known Allergies Current Outpatient Medications Medication Sig Dispense Refill traMADol (ULTRAM) 50 mg tablet Take 1 tablet by mouth every 8 hours as needed for pain for up to 7 days. 21 tablet 0 rosuvastatin (CRESTOR) 5 mg tablet take 1 tablet by mouth at bedtime 90 tablet 3 naproxen (NAPROSYN) 500 mg tablet TAKE 1 TABLET BY MOUTH TWICE DAILY NEEDED FOR PAIN (TAKE WITH FOOD) [address] (PROTONIX) 40 mg tablet take 1 tablet by mouth daily 30 tablet 5 escitalopram oxalate (LEXAPRO) 20 mg tablet TAKE 1 and ONE-HALF TABLETS BY MOUTH DAILY 45 tablet 5 LORazepam (ATIVAN) 0.5 mg Take 1 tablet by mouth daily at bedtime for 180 days. 30 tablet 5 tiZANidine (ZANAFLEX (more content not included)... Normal [facility] No Panel Informationon 10-23 IMPRESSION: First CMC osteoarthritis, right greater than left. Firer Boiler: LASHAE Transcribe Date/Time: Oct 24 2023 3:59P Dictated by : LOLA PARKS MD This examination was interpreted and the report reviewed and electronically signed by: LOLA PARKS MD on Oct 24 2023 4:01PM [facility] DIVISION OF RADIOLOGY Radiology Study observation (narrative) [facility] No Panel InformationOrdered By: Ccf Provider on 10-24-2023 [facility] XR DIGIT 3V FRONTAL/LAT/OBL LTon 10-24-2023 XR DIGIT 3V FRONTAL/LAT/OBL LT * * *Final Report* * * DATE OF EXAM: Oct 24 2023 1:47PM [id number] - XR DIGIT 3V FRONTAL/LAT/OBL LT / PROCEDURE REASON: Thumb pain, unspecified laterality * * * * Physician Interpretation * * * * EXAMINATION / TECHNIQUE: XR DIGIT 3V FRONTAL/LAT/OBL RT, XR DIGIT 3V FRONTAL/LAT/OBL LT PATIENT/TECHNOLOGIST PROVIDED HISTORY: Chronic 1st digit pain with out injury bilateral CLINICAL INFORMATION ( PROVIDED BY ORDERING CLINICIAN) : Thumb pain, unspecified laterality COMPARISON: 12/02/2022 and 05/15/2020 RESULT: Moderate to severe bilateral first CMC osteoarthritis, right greater than left, with joint space narrowing and osteophytes. There are mild degenerative changes elsewhere in the thumbs bilaterally, most notably at the first MCP joints, and to a lesser extent at the first interphalangeal joints. No erosions. No acute fracture or dislocation. Triscaphe degenerative changes are mild to moderate, right greater than left. IMPRESSION: First CMC osteoarthritis, right greater than left. Firer Boiler: LASHAE Transcribe Date/Time: Oct 24 2023 3:59P Dictated by : LOLA PARKS MD This examination was interpreted and the report reviewed and electronically signed by: LOLA PARKS MD on Oct 24 2023 4:01PM EST [id number] Normal [facility] XR DIGIT 3V FRONTAL/LAT/OBL RTon 10-24-2023 XR DIGIT 3V FRONTAL/LAT/OBL RT * * *Final Report* * * DATE OF EXAM: Oct 24 2023 1:54PM [id number] - XR DIGIT 3V FRONTAL/LAT/OBL RT / PROCEDURE REASON: Thumb pain, unspecified laterality * * * * Physician Interpretation * * * * EXAMINATION / TECHNIQUE: XR DIGIT 3V FRONTAL/LAT/OBL RT, XR DIGIT 3V FRONTAL/LAT/OBL LT PATIENT/TECHNOLOGIST PROVIDED HISTORY: Chronic 1st digit pain with out injury bilateral CLINICAL INFORMATION ( PROVIDED BY ORDERING CLINICIAN) : Thumb pain, unspecified laterality COMPARISON: 12/02/2022 and 05/15/2020 RESULT: Moderate to severe bilateral first CMC osteoarthritis, right greater than left, with joint space narrowing and osteophytes. There are mild degenerative changes elsewhere in the thumbs bilaterally, most notably at the first MCP joints, and to a lesser extent at the first interphalangeal joints. No erosions. No acute fracture or dislocation. Triscaphe degenerative changes are mild to moderate, right greater than left. IMPRESSION: First CMC osteoarthritis, right greater than left. Firer Boiler: LASHAE Transcribe Date/Time: Oct 24 2023 3:59P Dictated by : LOLA PARKS MD This examination was interpreted and the report reviewed and electronically signed by: LOLA PARKS MD on Oct 24 2023 4:01PM EST [id number] Normal [facility] XR Finger - left AP and Late ral and obliqueon 10-24-2023 * * *Final Report* * * DATE OF EXAM: Oct 24 2023 1:47PM [id number] - XR DIGIT 3V FRONTAL/LAT/OBL LT / PROCEDURE REASON: Thumb pain, unspecified laterality * * * * Physician Interpretation * * * * EXAMINATION / TECHNIQUE: XR DIGIT 3V FRONTAL/LAT/OBL RT, XR DIGIT 3V FRONTAL/LAT/OBL LT PATIENT/TECHNOLOGIST PROVIDED HISTORY: Chronic 1st digit pain with out injury bilateral CLINICAL INFORMATION ( PROVIDED BY ORDERING CLINICIAN) : Thumb pain, unspecified laterality COMPARISON: 12/02/2022 and 05/15/2020 RESULT: Moderate to severe bilateral first CMC osteoarthritis, right greater than left, with joint space narrowing and osteophytes. There are mild degenerative changes elsewhere in the thumbs bilaterally, most notably at the first MCP joints, and to a lesser extent at the first interphalangeal joints. No erosions. No acute fracture or dislocation. Triscaphe degenerative changes are mild to moderate, right greater than left. DIVISION OF RADIOLOGY Provider, [facility] - 10/24/2023 * * *Final Report* * * DATE OF EXAM: Oct 24 2023 1:47PM [id number] - XR DIGIT 3V FRONTAL/LAT/OBL LT / PROCEDURE REASON: Thumb pain, unspecified laterality * * * * Physician Interpretation * * * * EXAMINATION / TECHNIQUE: XR DIGIT 3V FRONTAL/LAT/OBL RT, XR DIGIT 3V FRONTAL/LAT/OBL LT PATIENT/TECHNOLOGIST PROVIDED HISTORY: Chronic 1st digit pain with out injury bilateral CLINICAL INFORMATION ( PROVIDED BY ORDERING CLINICIAN) : Thumb pain, unspecified laterality COMPARISON: 12/02/2022 and 05/15/2020 RESULT: Moderate to severe bilateral first CMC osteoarthritis, right greater than left, with joint space narrowing and osteophytes. There are mild degenerative changes elsewhere in the thumbs bilaterally, most notably at the first MCP joints, and to a lesser extent at the first interphalangeal joints. No erosions. No acute fracture or dislocation. Triscaphe degenerative changes are mild to moderate, right greater than left. IMPRESSION IMPRESSION: First CMC osteoarthritis, right greater than left. Firer Boiler: LASHAE Transcribe Date/Time: Oct 24 2023 3:59P Dictated by : LOLA PARKS MD This examination was interpreted and the report reviewed and electronically signed by: LOLA PARKS MD on Oct 24 2023 4:01PM [facility] XR Finger - right AP and Lat eral and obliqueon 10-24-2023 * * *Final Report* * * DATE OF EXAM: Oct 24 2023 1:54PM [id number] - XR DIGIT 3V FRONTAL/LAT/OBL RT / PROCEDURE REASON: Thumb pain, unspecified laterality * * * * Physician Interpretation * * * * EXAMINATION / TECHNIQUE: XR DIGIT 3V FRONTAL/LAT/OBL RT, XR DIGIT 3V FRONTAL/LAT/OBL LT PATIENT/TECHNOLOGIST PROVIDED HISTORY: Chronic 1st digit pain with out injury bilateral CLINICAL INFORMATION ( PROVIDED BY ORDERING CLINICIAN) : Thumb pain, unspecified laterality COMPARISON: 12/02/2022 and 05/15/2020 RESULT: Moderate to severe bilateral first CMC osteoarthritis, right greater than left, with joint space narrowing and osteophytes. There are mild degenerative changes elsewhere in the thumbs bilaterally, most notably at the first MCP joints, and to a lesser extent at the first interphalangeal joints. No erosions. No acute fracture or dislocation. Triscaphe degenerative changes are mild to moderate, right greater than left. DIVISION OF RADIOLOGY Provider, [facility] - 10/24/2023 * * *Final Report* * * DATE OF EXAM: Oct 24 2023 1:54PM [id number] - XR DIGIT 3V FRONTAL/LAT/OBL RT / PROCEDURE REASON: Thumb pain, unspecified laterality * * * * Physician Interpretation * * * * EXAMINATION / TECHNIQUE: XR DIGIT 3V FRONTAL/LAT/OBL RT, XR DIGIT 3V FRONTAL/LAT/OBL LT PATIENT/TECHNOLOGIST PROVIDED HISTORY: Chronic 1st digit pain with out injury bilateral CLINICAL INFORMATION ( PROVIDED BY ORDERING CLINICIAN) : Thumb pain, unspecified laterality COMPARISON: 12/02/2022 and 05/15/2020 RESULT: Moderate to severe bilateral first CMC osteoarthritis, right greater than left, with joint space narrowing and osteophytes. There are mild degenerative changes elsewhere in the thumbs bilaterally, most notably at the first MCP joints, and to a lesser extent at the first interphalangeal joints. No erosions. No acute fracture or dislocation. Triscaphe degenerative changes are mild to moderate, right greater than left. IMPRESSION IMPRESSION: First CMC osteoarthritis, right greater than left. Firer Boiler: PSCB Transcribe Date/Time: Oct 24 2023 3:59P Dictated by : LOLA PARKS MD This examination was interpreted and the report reviewed and electronically signed by: LOLA PARKS MD on Oct 24 2023 4:01PM [facility] CNOVon 09-19-2023 CNOV Office Visit (INMAVN ) -- JOSÉ ROJAS ([id number]) 1960 M Date Time Provider Department 09/19/23 11:40 AM ROSA ROBERTSON IN[facility] During your visit today, we recorded the following information about you: Pulse Blood pressure Weight 98/minute 127/86 85.7 kg Rosa Robertson MD 09/19/2023 12:49 PM Signed cc: f/u dad Oct house arrest due to neighbor, can't go anywhere can't sleep, taking his dad's ativan, helps him sleep depression siblings trying to evict him from house he says we did not refill his amitryptilline, see mychart encounter 03/18/23 so he has not been taking amitryptilline he says there were side effects, so he is asking for ativan [facility] PAST MEDICAL HISTORY Diagnosis Date Acquired hallux limitus of left foot Acute NM (HCC) 08/2007 angina - bare metal stent x1 - to see Dr Ortiz 08/30 Arthritis of right hip inj helps - needs THR, 06/15/17:insurance did not approve Back pain 10/14/2015 pain management rec CPRP - do not refill percocet - 07/08/17:send to [facility] Chronic pain of toe of left foot Depression zoloft spinning couldn't get going, prozac creating action (act on neighbor) - celexa ETOH abuse Fibromyalgia 05/22/20:saw pain psychologist, used mental control to ignore pains GERD (gastroesophageal reflux disease) aciphex Hematuria 2019 saw urology in [place] Hiatal hernia History of PTCA Dr Germain HTN (hypertension) lisinopril Hyperlipidemia lipitor Insomnia 04/16/2022 lexapro, amitryptilline 50 mg qhs, sleeping well Lung nodule 10/16/2014 6 mm - recheck at 1 yr and 2 yrs NEGATIVE HISTORY OF No pn,tb,ca,dm Spinal stenosis 1995 accident went to PT - neck, mid back, right leg, 10/09, percocet 1/2 tid - Dr Brooks (pain management) - tried fentayl, methadone Testicular lump s/p removal, benign - testosterone - Dr Valentine PE: BP 127/86 Pulse 98 Wt 85.7 kg (189 lb) BMI 26.36 kg/m? Gen: NAD Affect: wnl A/P: (F51.01) Primary insomnia (primary encounter diagnosis) Comment: under a lot of stress Plan: LORazepam (ATIVAN) 0.5 mg do not drink alcohol with ativan continue lexapro Rosa Robertson MD Allergies As of Date: 09/19/2023 (No Known Allergies) Date Reviewed: 09/19/2023 Reviewed by: Jayde Travis MA - Fully Assessed Reason for Visit: Follow Up [171] Cmt: Would like to discuss his recent brain dx Discussion [813] Cmt: Would like to discuss his usual situation - house issue Patient has been underneath house arrest for quite some time Primary Visit Diagnosis:Primary insomnia [F51.01] Order(s):LORazepam (ATIVAN) 0.5 mgTake 1 tablet by mouth daily at bedtime for 180 days.Disp: 30 tabletRfl: 5 Prescriptions as of 09/19/2023 - LORazepam (ATIVAN) 0.5 mg Take 1 tablet by mouth daily at bedtime for 180 days. - tiZANidine (ZANAFLEX) 4 mg tablet TAKE 1 TABLET BY MOUTH TWICE DAILY NEEDED for headache - omega 7-ynz-pma-fish oil 300 mg (120 mg- 180mg)-1,000 mg cap take 2 capsules by mouth at bedtime - escitalopram oxalate (LEXAPRO) 20 mg tablet TAKE 1 and ONE-HALF TABLETS BY MOUTH DAILY - VITAMIN D 25 mcg (1,000 unit) tab tablet take 1 tablet by mouth daily - pantoprazole DR (PROTONIX) 40 mg tablet take 1 tablet by mouth daily - naproxen (NAPROSYN) 500 mg tablet TAKE 1 TABLET BY MOUTH TWICE DAILY NEEDED FOR PAIN (TAKE WITH FOOD) - pramipexole (MIRAPEX) 0.125 mg tablet Take 1 tablet by mouth daily at bedtime. - semaglutide (OZEMPIC) 0.25 mg or 0.5 mg(2 mg/1.5 mL) pen Inject 0.25 mg subcutaneously one time a week. - oxyCODONE IR (ROXICODONE) 5 mg immediate release tablet Take 1 tablet by mouth every 6 hours as needed for pain. for pain. - metoprolol succinate ER (TOPROL XL) 50 mg 24 hr tablet TAKE 1 TABLET BY MOUTH DAILY AT BEDTIME - losartan (COZAAR) 50 mg tablet TAKE 1 TABLET BY MOUTH DAILY - oxyCODONE-acetaminophen (PERCOCET) 5-325 mg tablet Take 1 tablet by mouth every 8 hours as needed for pain. - acamprosate DR (CAMPRAL) 333 mg tablet Take 2 tablets by mouth three times daily. - rosuvastatin (CRESTOR) 5 mg tablet TAKE 1 TABLET BY MOUTH AT BEDTIME - VITAMIN B-2 100 mg tab Take 4 tablets by mouth once daily. - verapamil SR (CALAN SR, ISOPTIN SR) 180 mg CR tablet Take 1 tablet by mouth daily at bedtime. - galcanezumab-gnlm (EMGALITY PEN) 120 mg/mL pen Inject 1 mL subcutaneously once every month. Do not shake. Start after completing 240mg loading dose. - Ascorbic Acid 1,000 mg tablet TAKE 1 TABLET BY MOUTH DAILY - aspirin, enteric coated (ECOTRIN LOW STRENGTH) 81 mg EC tablet Take 1 tablet by mouth once daily. - fluticasone (FLONASE) 50 mcg/actuation nasal spray use 2 (TWO) sprays IN EACH NOSTRIL DAILY AT BEDTIME - CPAP New set up: AutoCPAP 5-15 cm H2O, mask (pt pref), filters, heated humidity AND tubing. Lifetime supplies. SUSANNAH G47.33. - testosterone cypionate (DEPO-TE (more content not included)... [facility] -- JOSÉ ROJAS ([id number]) 1960 M Date Time Provider Department 09/01/23 [facility] During your visit today, we recorded the following information about you: Allergies As of Date: 09/01/2023 (No Known Allergies) Date Reviewed: 08/10/2023 Reviewed by: Gaston Lundberg MA - Fully Assessed Prescriptions as of 09/05/2023 - tiZANidine (ZANAFLEX) 4 mg tablet TAKE 1 TABLET BY MOUTH TWICE DAILY NEEDED for headache - omega 2-guh-pqj-fish oil 300 mg (120 mg- 180mg)-1,000 mg cap take 2 capsules by mouth at bedtime - escitalopram oxalate (LEXAPRO) 20 mg tablet TAKE 1 and ONE-HALF TABLETS BY MOUTH DAILY - VITAMIN D 25 mcg (1,000 unit) tab tablet take 1 tablet by mouth daily - pantoprazole DR (PROTONIX) 40 mg tablet take 1 tablet by mouth daily - naproxen (NAPROSYN) 500 mg tablet TAKE 1 TABLET BY MOUTH TWICE DAILY NEEDED FOR PAIN (TAKE WITH FOOD) - pramipexole (MIRAPEX) 0.125 mg tablet Take 1 tablet by mouth daily at bedtime. - semaglutide (OZEMPIC) 0.25 mg or 0.5 mg(2 mg/1.5 mL) pen Inject 0.25 mg subcutaneously one time a week. - oxyCODONE IR (ROXICODONE) 5 mg immediate release tablet Take 1 tablet by mouth every 6 hours as needed for pain. for pain. - metoprolol succinate ER (TOPROL XL) 50 mg 24 hr tablet TAKE 1 TABLET BY MOUTH DAILY AT BEDTIME - losartan (COZAAR) 50 mg tablet TAKE 1 TABLET BY MOUTH DAILY - oxyCODONE-acetaminophen (PERCOCET) 5-325 mg tablet Take 1 tablet by mouth every 8 hours as needed for pain. - acamprosate DR (CAMPRAL) 333 mg tablet Take 2 tablets by mouth three times daily. - rosuvastatin (CRESTOR) 5 mg tablet TAKE 1 TABLET BY MOUTH AT BEDTIME - VITAMIN B-2 100 mg tab Take 4 tablets by mouth once daily. - amitriptyline (ELAVIL) 50 mg tablet Take 1 tablet by mouth daily at bedtime. - verapamil SR (CALAN SR, ISOPTIN SR) 180 mg CR tablet Take 1 tablet by mouth daily at bedtime. - galcanezumab-gnlm (EMGALITY PEN) 120 mg/mL pen Inject 1 mL subcutaneously once every month. Do not shake. Start after completing 240mg loading dose. - Ascorbic Acid 1,000 mg tablet TAKE 1 TABLET BY MOUTH DAILY - aspirin, enteric coated (ECOTRIN LOW STRENGTH) 81 mg EC tablet Take 1 tablet by mouth once daily. - fluticasone (FLONASE) 50 mcg/actuation nasal spray use 2 (TWO) sprays IN EACH NOSTRIL DAILY AT BEDTIME - CPAP New set up: AutoCPAP 5-15 cm H2O, mask (pt pref), filters, heated humidity AND tubing. Lifetime supplies. SUSANNAH G47.33. - testosterone cypionate (DEPO-TESTOSTERONE) 200 mg/mL injection INJECT 0.5 ml INTRAMUSCULARLY EVERY TEN days. Meds Comments as of 06/19/2023: 11/16/22 No medication changes with the past 30 days. Mary Leyva RN 06/19/2023 Patient states that he is only taking amitriptyline, metoprolol and tizanidine. Shelby Camargo RN Problem List As Of Date 09/01/2023 Noted Resolved Radicular pain of right lower extremity [M54.10]07/21/2010 Vitamin D deficiency [E55.9] 07/21/2010 Lumbago [M54.50] 07/21/2010 Chronic pain [G89.29] 07/21/2010 12/27/2019 Misuse of drugs [F19.90] 10/19/2010 Opioid dependence [F11.20] 10/19/2010 Myofascial pain syndrome [M79.18] 10/19/2010 Neck pain [M54.2] 05/24/2012 Lumbar spinal stenosis [M48.061] 09/01/2012 Testosterone deficiency [E34.9] 05/21/2013 Hypogonadism in male [E29.1] 07/09/2014 Osteoarthrosis, unspecified whether generalized*08/30/2014 Epididymal mass [N50.89] 09/04/2014 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] 09/26/2014 Right shoulder pain [M25.511] 12/11/2014 Cigarette nicotine dependence without complicat*12/11/2014 Pain in both feet [M79.671, M79.672] 12/11/2014 03/21/2018 Bilateral low back pain without sciatica [M54.5*12/11/2014 Cervicalgia [M54.2] 12/11/2014 Pain in joint, multiple sites [M25.50] 12/11/2014 03/21/2018 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*01/29/2015 Fibromyalgia [M79.7] 01/29/2015 Chest pain [R07.9] 06/30/2015 Syncope [R55] 06/14/2016 Heart palpitations [R00.2] 06/14/2016 Dizziness [R42] 06/24/2016 Mixed hyperlipidemia [E78.2] 08/30/2016 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na*08/30/2016 Encounter for screening for malignant neoplasm *10/19/2016 Anxiety [F41.9] 01/07/2017 Osteoarthritis of right hip [M16.11] 02/15/2017 Medial meniscus tear [S83.249A] 02/15/2017 HTN (hypertension) [I10] Floaters, bilateral [H43.393] 08/25/2017 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 Normal [facility] CNOVon 08-10-2023 CNOV Office Visit (LOORRM ) -- JOSÉ ROJAS ([id number]) 1960 M Date Time Provider Department 08/10/23 11:15 AM FACUNDO PENA LOORRM During your visit today, we recorded the following information about you: Facundo Pena DO 08/10/2023 1:06 PM Signed José Rojas is a patient of Rosa Robertson MD. CHIEF COMPLAINT: José Rojas is a 63 year old male who presents today for follow up of bilateral thumbs. HISTORY OF PRESENT ILLNESS: PAIN EVALUATION 08/10/2023 1120 Pain Level: 6 Pain Location: Finger Description: Sore;Sharp Duration Units: Months Frequency: Intermittent Follow-up of the thumbs Had CSI about 3 months ago, had relief for a couple of weeks Pain in the base of the thumbs Using his hands a lot recently due to preparing to move Denies any new injury PHYSICAL EXAMINATION: Specific MSK Exam TTP over the base of the thumbs Pain with CMC grind IMAGING: No imaging was performed today. CLINICAL IMPRESSION / ASSESSMENT: (M18.0) Arthritis of carpometacarpal (CMC) joint of both thumbs (primary encounter diagnosis) PLAN: He is only having short term relief from CSI to the CMC joints Will try another CSI to both thumbs at this time Recommend surgical consultation as well. Consult placed Follow-up as needed Small Joint Arthro/Inj: bilateral thumb CMC Informed Consent Burton Protocol A moment to CARE was completed. SIGN IN Personnel directly involved with the procedure wore the appropriate PPE. Special Equipment: N/A Patient/Surrogate Stated/Verified: Patient name, Date of , Relevant allergies and Intended procedure TIME OUT Intended patient and procedure match the source document(s). Relevant labs, photos, and/or imaging studies have been reviewed. Correct side/site marked and visible. Medications required for procedure verified. No fire risk assessment and interventions applicable. No implant(s) inserted. 08/10/2023 1:06 PM The procedure site was prepped in the usual sterile fashion. Medications (Right): 6 mg betamethasone acetate-betamethasone sodium phosphate 6 mg/mL Medications (Left): 6 mg betamethasone acetate-betamethasone sodium phosphate 6 mg/mL Anesthetics (Right): 1 mL lidocaine (PF) 10 mg/mL (1 %) Anesthetics (Left): 1 mL lidocaine (PF) 10 mg/mL (1 %) Outcome: tolerated well, no immediate complications Post-injection instructions were reviewed with the patient and the patient voiced understanding of these instructions. SIGN OUT All instruments, equipment, possible retained foreign bodies accounted for. Post-procedure follow-up management communicated and Plan of Care Visit completed when applicable Facundo Pena, Allergies As of Date: 08/10/2023 (No Known Allergies) Date Reviewed: 08/10/2023 Reviewed by: Gaston Lundberg MA - Fully Assessed Reason for Visit: Established Patient [175] Pain [78] Established Patient [175] Pain [78] Primary Visit Diagnosis:Arthritis of carpometacarpal (CMC) joint of both thumbs [M18.0] Order(s):Small Joint Arthro/Inj: bilateral thumb CMC [OSH394] Order #: [id number] CONSULT TO ORTHOPAEDIC SURGERY [[id number]] Order #: [id number]: 1 FUTURE [] betamethasone acetate-betamethasone sodium phosphate 6 mg injection (CELESTONE)Disp: Rfl: [] betamethasone acetate-betamethasone sodium phosphate 6 mg injection (CELESTONE)Disp: Rfl: [] lidocaine (PF) 10 mg/mL (1 %) 1 mL injection (XYLOCAINE)Disp: Rfl: [] lidocaine (PF) 10 mg/mL (1 %) 1 mL injection (XYLOCAINE)Disp: Rfl: Prescriptions as of 08/10/2023 - tiZANidine (ZANAFLEX) 4 mg tablet TAKE 1 TABLET BY MOUTH TWICE DAILY NEEDED for headache - omega 2-qwy-mnk-fish oil 300 mg (120 mg- 180mg)-1,000 mg cap take 2 capsules by mouth at bedtime - escitalopram oxalate (LEXAPRO) 20 mg tablet TAKE 1 and ONE-HALF TABLETS BY MOUTH DAILY - VITAMIN D 25 mcg (1,000 unit) tab tablet take 1 tablet by mouth daily - pantoprazole DR (PROTONIX) 40 mg tablet take 1 tablet by mouth daily - naproxen (NAPROSYN) 500 mg tablet TAKE 1 TABLET BY MOUTH TWICE DAILY NEEDED FOR PAIN (TAKE WITH FOOD) - pramipexole (MIRAPEX) 0.125 mg tablet Take 1 tablet by mouth daily at bedtime. - semaglutide (OZEMPIC) 0.25 mg or 0.5 mg(2 mg/1.5 mL) pen Inject 0.25 mg subcutaneously one time a week. - oxyCODONE IR (ROXICODONE) 5 mg immediate release tablet Take 1 tablet by mouth every 6 hours as needed for pain. for pain. - metoprolol succinate ER (TOPROL XL) 50 mg 24 hr tablet TAKE 1 TABLET BY MOUTH DAILY AT BEDTIME - losartan (COZAAR) 50 mg tablet TAKE 1 TABLET BY MOUTH DAILY - oxyCODONE-acetaminophen (PERCOCET) 5-325 mg tablet Take 1 tablet by mouth every 8 hours as needed for pain. - acamprosate DR (CAMPRAL) 333 mg tablet Take 2 tablets by mouth three times daily. - rosuvastatin (CRESTOR) 5 mg tablet TAKE 1 TABLET BY MOUTH AT BEDTIME (more content not included)... Normal [facility] CNOVon 04-20-2023 CNOV Office Visit (ORAVON ) -- JOSÉ ROJAS ([id number]) 1960 M Date Time Provider Department 04/20/23 9:00 AM FACUNDO PENA During your visit today, we recorded the following information about you: Facundo Pena, 04/20/2023 11:15 AM Signed José Rojas is a patient of Rosa Robertson MD. CHIEF COMPLAINT: José Rojas is a 62 year old male who presents today for follow up of bilateral thumbs. HISTORY OF PRESENT ILLNESS: PAIN EVALUATION 04/20/2023 0848 Pain Level: 8 Pain Location: Finger BILATERAL THUMB PAIN Description: Shooting Duration Amount of Time: 1 Duration Units: Months Frequency: Continuous Intervention/Comfort measure: Medication;Cold Follow-up of the bilateral thumbs Pain in the base of the thumbs Last seen for this about 18 months ago Received CSI at that time, which did help Denies any new injury to the hands PHYSICAL EXAMINATION: Specific MSK Exam TTP over the bilateral thumb CMC joints Pain with CMC grind testing IMAGING: No imaging was performed today. CLINICAL IMPRESSION / ASSESSMENT: (M18.0) Arthritis of carpometacarpal (CMC) joint of both thumbs (primary encounter diagnosis) PLAN: Discussed with him about treatment options for the CMC arthritis- CSI, surgery consult Will proceed with CSI to both thumbs at this time Activities as tolerated Follow-up as needed Small Joint Arthro/Inj: bilateral thumb CMC Informed Consent Burton Protocol A moment to CARE was completed. SIGN IN Personnel directly involved with the procedure wore the appropriate PPE. Special Equipment: N/A Patient/Surrogate Stated/Verified: Patient name, Date of , Relevant allergies and Intended procedure TIME OUT Intended patient and procedure match the source document(s). Relevant labs, photos, and/or imaging studies have been reviewed. Correct side/site marked and visible. Medications required for procedure verified. No fire risk assessment and interventions applicable. No implant(s) inserted. 04/20/2023 11:14 AM The procedure site was prepped in the usual sterile fashion. Medications (Right): 6 mg betamethasone acetate-betamethasone sodium phosphate 6 mg/mL Medications (Left): 6 mg betamethasone acetate-betamethasone sodium phosphate 6 mg/mL Anesthetics (Right): 1 mL lidocaine (PF) 10 mg/mL (1 %) Anesthetics (Left): 1 mL lidocaine (PF) 10 mg/mL (1 %) Outcome: tolerated well, no immediate complications Post-injection instructions were reviewed with the patient and the patient voiced understanding of these instructions. SIGN OUT All instruments, equipment, possible retained foreign bodies accounted for. Facundo Pena DO Allergies As of Date: 04/20/2023 (No Known Allergies) Date Reviewed: 04/20/2023 Reviewed by: Facundo Pena DO - Fully Assessed Reason for Visit: Thumb Pain [1582] Primary Visit Diagnosis:Arthritis of carpometacarpal (CMC) joint of both thumbs [M18.0] Order(s):Small Joint Arthro/Inj: bilateral thumb CMC [[id number]] Order #: [id number] [] betamethasone acetate-betamethasone sodium phosphate 6 mg injection (CELESTONE)Disp: Rfl: [] betamethasone acetate-betamethasone sodium phosphate 6 mg injection (CELESTONE)Disp: Rfl: [] lidocaine (PF) 10 mg/mL (1 %) 1 mL injection (XYLOCAINE)Disp: Rfl: [] lidocaine (PF) 10 mg/mL (1 %) 1 mL injection (XYLOCAINE)Disp: Rfl: Prescriptions as of 04/20/2023 - escitalopram oxalate (LEXAPRO) 20 mg tablet Take 1 and 1/2 tablet by mouth daily - tiZANidine (ZANAFLEX) 4 mg tablet TAKE 1 TABLET BY MOUTH TWICE DAILY NEEDED FOR HEADACHE - semaglutide (OZEMPIC) 0.25 mg or 0.5 mg(2 mg/1.5 mL) pen Inject 0.25 mg subcutaneously one time a week. - oxyCODONE IR (ROXICODONE) 5 mg immediate release tablet Take 1 tablet by mouth every 6 hours as needed for pain. for pain. - metoprolol succinate ER (TOPROL XL) 50 mg 24 hr tablet TAKE 1 TABLET BY MOUTH DAILY AT BEDTIME - losartan (COZAAR) 50 mg tablet TAKE 1 TABLET BY MOUTH DAILY - oxyCODONE-acetaminophen (PERCOCET) 5-325 mg tablet Take 1 tablet by mouth every 8 hours as needed for pain. - acamprosate DR (CAMPRAL) 333 mg tablet Take 2 tablets by mouth three times daily. - rosuvastatin (CRESTOR) 5 mg tablet TAKE 1 TABLET BY MOUTH AT BEDTIME - omega 4-zgl-umy-fish oil 300 mg (120 mg- 180mg)-1,000 mg cap TAKE 2 CAPSULES BY MOUTH AT BEDTIME - VITAMIN B-2 100 mg tab Take 4 tablets by mouth once daily. - amitriptyline (ELAVIL) 50 mg tablet Take 1 tablet by mouth daily at bedtime. - verapamil SR (CALAN SR, ISOPTIN SR) 180 mg CR tablet Take 1 tablet by mouth daily at bedtime. - galcanezumab-gnlm (EMGALITY PEN) 120 mg/mL pen Inject 1 mL subcutaneously once every month. Do not shake. Start after completing 240mg loading dose. - pantoprazole DR (PROTONIX) 40 mg tablet TAKE 1 TABLET BY MOUTH DAILY - naproxen (NAP (more content not included)... Normal [facility] Brianna 04-06-2023 ANGELINEN Telephone (ORQ) -- JOSÉ ROJAS ([id number]) 1960 M Date Time Provider Department 04/06/23 FACUNDO PENA During your visit today, we recorded the following information about you: Ivette Espinosa 04/06/2023 8:20 AM Signed José is calling Facundo Pnea DO today Patient has been seen the past few years for thumb injections but had not been seen for a while due to some other health issues He recently went back to work and since then the thumb pain has become unbearable He is having a hard time gripping anything and sleeping due to pain Scheduled for soonest available in May and placed on but asked for a message to be put over for something sooner Please advise Patient has been identified by name and birthdate. Duration of symptoms: N/A Person calling: self Call patient at: at home [phone] (home) [phone] (cell) Was an appointment scheduled: Yes: Date/Time: 05/10 Closing statement: Symptom Call: Thank you for calling [facility], your call is very important. A nurse will call in approximately 2-4 hours during business hours. If this is an emergency, please contact 911. Facundo Cates DO 04/06/2023 10:47 AM Signed There is nothing else that can be done besides the cancellation list. I can see if our office has someone else that could see him earlier. Facundo Pena DO Joya Maria 04/07/2023 9:04 AM Signed Contacted patient and scheduled a sooner appointment with Dr. Pena. Allergies As of Date: 04/06/2023 (No Known Allergies) Date Reviewed: 01/18/2023 Reviewed by: Felecia Caballero DPM - Fully Assessed Reason for Visit: Appointment [186] Prescriptions as of 04/07/2023 - escitalopram oxalate (LEXAPRO) 20 mg tablet Take 1 and 1/2 tablet by mouth daily - tiZANidine (ZANAFLEX) 4 mg tablet TAKE 1 TABLET BY MOUTH TWICE DAILY NEEDED FOR HEADACHE - semaglutide (OZEMPIC) 0.25 mg or 0.5 mg(2 mg/1.5 mL) pen Inject 0.25 mg subcutaneously one time a week. - oxyCODONE IR (ROXICODONE) 5 mg immediate release tablet Take 1 tablet by mouth every 6 hours as needed for pain. for pain. - metoprolol succinate ER (TOPROL XL) 50 mg 24 hr tablet TAKE 1 TABLET BY MOUTH DAILY AT BEDTIME - losartan (COZAAR) 50 mg tablet TAKE 1 TABLET BY MOUTH DAILY - oxyCODONE-acetaminophen (PERCOCET) 5-325 mg tablet Take 1 tablet by mouth every 8 hours as needed for pain. - acamprosate DR (CAMPRAL) 333 mg tablet Take 2 tablets by mouth three times daily. - rosuvastatin (CRESTOR) 5 mg tablet TAKE 1 TABLET BY MOUTH AT BEDTIME - omega 2-vxg-kac-fish oil 300 mg (120 mg- 180mg)-1,000 mg cap TAKE 2 CAPSULES BY MOUTH AT BEDTIME - VITAMIN B-2 100 mg tab Take 4 tablets by mouth once daily. - amitriptyline (ELAVIL) 50 mg tablet Take 1 tablet by mouth daily at bedtime. - verapamil SR (CALAN SR, ISOPTIN SR) 180 mg CR tablet Take 1 tablet by mouth daily at bedtime. - galcanezumab-gnlm (EMGALITY PEN) 120 mg/mL pen Inject 1 mL subcutaneously once every month. Do not shake. Start after completing 240mg loading dose. - pantoprazole DR (PROTONIX) 40 mg tablet TAKE 1 TABLET BY MOUTH DAILY - naproxen (NAPROSYN) 500 mg tablet Take 1 tablet by mouth twice daily as needed (for pain). Take with food - Ascorbic Acid 1,000 mg tablet TAKE 1 TABLET BY MOUTH DAILY - VITAMIN D 25 mcg (1,000 unit) tab tablet TAKE 1 TABLET BY MOUTH DAILY - aspirin, enteric coated (ECOTRIN LOW STRENGTH) 81 mg EC tablet Take 1 tablet by mouth once daily. - fluticasone (FLONASE) 50 mcg/actuation nasal spray use 2 (TWO) sprays IN EACH NOSTRIL DAILY AT BEDTIME - CPAP New set up: AutoCPAP 5-15 cm H2O, mask (pt pref), filters, heated humidity AND tubing. Lifetime supplies. SUSANNAH G47.33. - testosterone cypionate (DEPO-TESTOSTERONE) 200 mg/mL injection INJECT 0.5 ml INTRAMUSCULARLY EVERY TEN days. Meds Comments as of 11/16/2022: 11/16/22 No medication changes with the past 30 days. Mary Leyva RN Problem List As Of Date 04/06/2023 Noted Resolved Radicular pain of right lower extremity [M54.10]07/21/2010 Vitamin D deficiency [E55.9] 07/21/2010 Lumbago [M54.50] 07/21/2010 Chronic pain [G89.29] 07/21/2010 12/27/2019 Misuse of drugs [F19.90] 10/19/2010 Opioid dependence [F11.20] 10/19/2010 Myofascial pain syndrome [M79.18] 10/19/2010 Neck pain [M54.2] 05/24/2012 Lumbar spinal stenosis [M48.061] 09/01/2012 Testosterone deficiency [E34.9] 05/21/2013 Hypogonadism in male [E29.1] 07/09/2014 Osteoarthrosis, unspecified whether generalized*08/30/2014 Epididymal mass [N50.89] 09/04/2014 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 Normal [facility] CNPNon 04-04-2023 CNPN Telephone (PCCREJ) -- JOSÉ ROJAS ([id number]) 1960 Date Time Provider Department 04/04/23 DIANN SARMIENTO [facility] During your visit today, we recorded the following information about you: Diann Sarmiento MSW 04/04/2023 1:56 PM Signed Behavioral Health Social Work Progress Note Patient identified for [facility] from: PCP Reason for referral: Resources Behavioral Health Resources: Psychiatry med management [facility] encounter type: Telephone Encounter, [place] Message Attempts to Outreach: 1 attempt Referral made: Psychiatry - External, Psychiatry - Internal Psychiatry-Internal referral type: Medication Management Psychiatry-External referral type: Medication Management Reason for external referral: Wait times at [facility] too long, Patient choice Final Disposition: Resources given Patient Discharged?: Yes Patient reported that caregiver was able to meet their needs today?: Yes SW placed a phone call to patient at the request of the PCP. Pt reported he is currently working with a therapist through [facility], and is looking for medication management referrals at this time. SW will provide the following referrals via [employer]: [facility] Psychiatry and Counseling Central Scheduling [facility] [phone] Counseling and psychiatry [address] [address] Counseling and psychiatry [facility] [address] [place] [address] Counseling and psychiatry [facility] [address] [facility] [address] Counseling and psychiatry [facility] [address] [place] [address] [facility] [address] [place] [address] [place] [employer]: [address] [place], [place] [address] [place] [address] TIANA Ahuja, HORIZONTAL DRILL OPERATOR-S April 04, 2023 Allergies As of Date: 04/04/2023 (No Known Allergies) Date Reviewed: 01/18/2023 Reviewed by: Felecia Caballero DPM - Fully Assessed Reason for Visit: Behavioral Health/Social Work [4796] Prescriptions as of 04/04/2023 - escitalopram oxalate (LEXAPRO) 20 mg tablet Take 1 and 1/2 tablet by mouth daily - tiZANidine (ZANAFLEX) 4 mg tablet TAKE 1 TABLET BY MOUTH TWICE DAILY NEEDED FOR HEADACHE - semaglutide (OZEMPIC) 0.25 mg or 0.5 mg(2 mg/1.5 mL) pen Inject 0.25 mg subcutaneously one time a week. - oxyCODONE IR (ROXICODONE) 5 mg immediate release tablet Take 1 tablet by mouth every 6 hours as needed for pain. for pain. - metoprolol succinate ER (TOPROL XL) 50 mg 24 hr tablet TAKE 1 TABLET BY MOUTH DAILY AT BEDTIME - losartan (COZAAR) 50 mg tablet TAKE 1 TABLET BY MOUTH DAILY - oxyCODONE-acetaminophen (PERCOCET) 5-325 mg tablet Take 1 tablet by mouth every 8 hours as needed for pain. - acamprosate DR (CAMPRAL) 333 mg tablet Take 2 tablets by mouth three times daily. - rosuvastatin (CRESTOR) 5 mg tablet TAKE 1 TABLET BY MOUTH AT BEDTIME - omega 5-ocx-gbu-fish oil 300 mg (120 mg- 180mg)-1,000 mg cap TAKE 2 CAPSULES BY MOUTH AT BEDTIME - VITAMIN B-2 100 mg tab Take 4 tablets by mouth once daily. - amitriptyline (ELAVIL) 50 mg tablet Take 1 tablet by mouth daily at bedtime. - verapamil SR (CALAN SR, ISOPTIN SR) 180 mg CR tablet Take 1 tablet by mouth daily at bedtime. - galcanezumab-gnlm (EMGALITY PEN) 120 mg/mL pen Inject 1 mL subcutaneously once every month. Do not shake. Start after completing 240mg loading dose. - pantoprazole DR (PROTONIX) 40 mg tablet TAKE 1 TABLET BY MOUTH DAILY - naproxen (NAPROSYN) 500 mg tablet Take 1 tablet by mouth twice daily as needed (for pain). Take with food - Ascorbic Acid 1,000 mg tablet TAKE 1 TABLET BY MOUTH DAILY - VITAMIN D 25 mcg (1,000 unit) tab tablet TAKE 1 TABLET BY MOUTH DAILY - aspirin, enteric coated (ECOTRIN LOW STRENGTH) 81 mg EC tablet Take 1 tablet by mouth once daily. - fluticasone (FLONASE) 50 mcg/actuation nasal spray use 2 (TWO) sprays IN EACH NOSTRIL DAILY AT BEDTIME - CPAP New set up: AutoCPAP 5-15 cm H2O, mask (pt pref), filters, heated humidity AND tubing. Lifetime supplies. SUSANNAH G47.33. - testosterone cypionate (DEPO-TESTOSTERONE) 200 mg/mL injection INJECT 0.5 ml INTRAMUSCULARLY EVERY TEN days. Meds Comments as of 11/16/2022: 11/16/22 No medication changes with the past 30 days. Mary Leyva RN Problem List As Of Date 04/04/2023 Noted Resolved Radicular pain of right lower extremity [M54.10]07/21/2010 Vitamin D deficiency [E55.9] 07/21/2010 Lumbago [M54.50] 07/21/2010 Chronic pain [G89.29] 07/21/2010 12/27/2019 Misuse of drugs [F19.90] 10/19/2010 Opioid dependence [F11.20] 10/19/2010 Myofascial pain syndrome [M79.18] 10/19/2010 Neck pain [M54.2] 05/03 (more content not included)... Normal [facility] CNOVon 12-29-2022 CNOV Office Visit (PLAFVW ) -- JOSÉ ROJAS ([id number]) 1960 M Date Time Provider Department 12/29/22 10:45 AM BROCK VALDEZ PLAFVW During your visit today, we recorded the following information about you: Brock Valdez PA-C 12/29/2022 11:27 AM Signed José Nadia Rojas underwent L EPL extensor tendon repair (zone 1-2) of the thumb on 12/14/22. The patient returns today for follow-up. The patient reports no major issues since surgery outside of general post operative pain. On exam of the L hand, the volar blocking splint was clean and intact. All incisions were healed without evidence of infection. All sutures removed. (+) active extension of L distal thumb joint ASSESSMENT: Post-operative state (primary encounter diagnosis) PLAN: Referral to OT placed for splint fabrication, and initiation of extensor tendon rehabilitation protocol (zone 1-2). Treated like a mallet finger injury. Patient understands that he must keep the digit in extension for a total of 8 weeks. Patient placed into a thumb spica splint by me. Splint extended to the tip of the digit. Return to clinic in 6 weeks for re-assessment. 15 Minutes total visit spent face to face with patient. Greater than 50% of the time was spent for counseling and coordination of care, discussing treatment options and recommendations. Brock Valdez PA-C December 29, 2022 11:05 AM This note was generated with voice recognition software and may contain errors, including spelling, grammar, syntax and misrecognition of what was dictated, that are not fully corrected. 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 for pain.Disp: 20 tabletRfl: 0 Prescriptions as of 12/29/2022 - oxyCODONE IR (ROXICODONE) 5 mg immediate release tablet Take 1 tablet by mouth every 6 hours as needed for pain. for pain. - metoprolol succinate ER (TOPROL XL) 50 mg 24 hr tablet TAKE 1 TABLET BY MOUTH DAILY AT BEDTIME - losartan (COZAAR) 50 mg tablet TAKE 1 TABLET BY MOUTH DAILY - oxyCODONE-acetaminophen (PERCOCET) 5-325 mg tablet Take 1 tablet by mouth every 8 hours as needed for pain. - acamprosate DR (CAMPRAL) 333 mg tablet Take 2 tablets by mouth three times daily. - rosuvastatin (CRESTOR) 5 mg tablet TAKE 1 TABLET BY MOUTH AT BEDTIME - omega 0-lgi-yub-fish oil 300 mg (120 mg- 180mg)-1,000 mg cap TAKE 2 CAPSULES BY MOUTH AT BEDTIME - tiZANidine (ZANAFLEX) 4 mg tablet Take 1 tablet by mouth twice daily as needed (Headache). - VITAMIN B-2 100 mg tab Take 4 tablets by mouth once daily. - amitriptyline (ELAVIL) 50 mg tablet Take 1 tablet by mouth daily at bedtime. - semaglutide (OZEMPIC) 0.25 mg or 0.5 mg(2 mg/1.5 mL) pen Inject 0.25 mg subcutaneously one time a week. - verapamil SR (CALAN SR, ISOPTIN SR) 180 mg CR tablet Take 1 tablet by mouth daily at bedtime. - galcanezumab-gnlm (EMGALITY PEN) 120 mg/mL pen Inject 1 mL subcutaneously once every month. Do not shake. Start after completing 240mg loading dose. - pantoprazole DR (PROTONIX) 40 mg tablet TAKE 1 TABLET BY MOUTH DAILY - naproxen (NAPROSYN) 500 mg tablet Take 1 tablet by mouth twice daily as needed (for pain). Take with food - Ascorbic Acid 1,000 mg tablet TAKE 1 TABLET BY MOUTH DAILY - VITAMIN D 25 mcg (1,000 unit) tab tablet TAKE 1 TABLET BY MOUTH DAILY - escitalopram oxalate (LEXAPRO) 20 mg tablet Take 1.5 tablets by mouth once daily. - aspirin, enteric coated (ECOTRIN LOW STRENGTH) 81 mg EC tablet Take 1 tablet by mouth once daily. - fluticasone (FLONASE) 50 mcg/actuation nasal spray use 2 (TWO) sprays IN EACH NOSTRIL DAILY AT BEDTIME - CPAP New set up: AutoCPAP 5-15 cm H2O, mask (pt pref), filters, heated humidity AND tubing. Lifetime supplies. SUSANNAH G47.33. - testosterone cypionate (DEPO-TESTOSTERONE) 200 mg/mL injection INJECT 0.5 ml INTRAMUSCULARLY EVERY TEN days. Meds Comments as of 11/16/2022: 11/16/22 No medication changes with the past 30 days. Mary Leyva RN Problem List As Of Date 12/29/2022 Noted Resolved Radicular pain of right lower extremity [M54.10]07/21/2010 Vitamin D deficiency [E55.9] 07/21/2010 Lumbago [M54.50] 07/21/2010 Chronic pain [G89.29] 07/21/2010 12/27/2019 Misuse of drugs [F19.90] 10/19/2010 Opioid dependence [F11.20] 10/19/2010 Myofascial pain (more content not included)... [facility] ANES POSTPROC EVALon 023 ANES POSTPROC EVAL HNO ID: [id number] Author: Dexter Ernst MD Service: ? Author Type: Anesthesiologist Type: Anesthesia Postprocedure Evaluation Filed: 12/14/2022 10:54 AM Note Text: POST ANESTHESIA EVALUATION NOTE : 1960 Procedure Summary Date: 12/14/22 Room / Location: [facility] / [facility] Anesthesia Start: 823 Anesthesia Stop: 923 Procedure: TRANSFER 1ST TENDON FOREARM (Left: Arm below elbow) Diagnosis: Other specified injury of extensor muscle, fascia and tendon of left thumb at wrist and hand level, initial encounter (Other specified injury of extensor muscle, fascia and tendon of left thumb at wrist and hand level, initial encounter [S66.292A]) Surgeons: Brock De La Torre MD Responsible Provider: Dexter Ernst MD Anesthesia Type: regional, general ASA Status: 3 Anesthesia Type: regional, general Airway Type: LMA Last Vitals Vitals Value Taken Time BP 127/69 12/14/22 0953 Temp 36.7 ?C (98 ?F) 12/14/22 0945 HR SpO2 91 12/14/22 0952 Resp 17 12/14/22 0953 SpO2 95 % 12/14/22 0952 Vitals shown include unvalidated device data. Post Anesthesia Patient Status Patient Evaluation: bedside. Anticipated Disposition: phase 2 then home. Neurological Status: aware and responsive. Pulmonary Status: breathing comfortably on room air Airway Control: returned to baseline unsupported. Cardiovascular Status: stable. Pain Management: clinically adequate Postoperative Hydration: acceptable. Intraoperative Events: no significant anesthesia events Post Operative Nausea/Vomiting Status: no significant post operative nausea or vomiting Recommendation: continue current plan of care. Anesthesia Observations No Documentation SIGNATURE: Dexter Ernst MD PATIENT NAME: José Rojas DATE: December 14, 2022 TIME: 10:53 AM CSN: [id number] [facility] ANES PRE-OPon 12-14-2022 ANES PRE-OP HNO ID: [id number] Author: Dexter Ernst MD Service: ? Author Type: Anesthesiologist Type: Anesthesia Preprocedure Evaluation Filed: 12/14/2022 7:29 AM Note Text: ANESTHESIOLOGY DAY OF SURGERY NOTE : 1960 Procedure Information Date/Time: 12/14/22814 Procedure: TRANSFER 1ST TENDON FOREARM (Left: Arm below elbow) Location: [facility] Surgeons: Brock De La Torre MD Estimated body mass index is 29.57 kg/m? as calculated from the following: Height as of 12/07/22: 180.3 cm (5' 11 ). Weight as of this encounter: 96.2 kg (212 lb). 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 Tracheostomy tube not present Mallampati: II. TM distance: >3 FB. Neck ROM: full ROM without neurological symptoms. Mouth opening: adequate. Short neck: no. Thick neck: no Faust present: no DENTAL Dental findings: teeth intact. Additional exam findings: yes. CARDIOVASCULAR Rhythm: regular Rate: normal PULMONARY Breath sounds clear to auscultation. II - ANESTHESIA PLAN ASA Score: 3 Anesthetic Plan: regional The patient is a current smoker. NPO Status: adequate Beta Janette Monitoring Plan Monitoring plan: standard ASA. Post Procedure Analgesic Plan Postoperative analgesic plan: multimodal analgesia and peripheral nerve block. Informed Consent Anesthetic risks, benefits, alternatives, personnel and consent discussed: yes. Patient / Responsible Democrat agrees to proceed: yes Patient / Surrogate agrees to blood products: Yes DNR status not reviewed with patient and/or family prior to surgery. Significant changes in the patient condition since the History and Physical, not otherwise documented in primary service progress note: no. Potential Anesthesia issues that may suggest increased risk of complications or contraindication to planned procedure: none. Vitals Value Taken Time BP 132/85 12/14/22 0658 Pulse 99 12/14/22 0658 Resp 18 12/14/22 0658 Temp 36.2 ?C (97.2 ?F) 12/14/22 0658 SpO2 97 % 12/14/22 0658 Facility-Administered Medications as of 12/14/2022 Medication Dose Route Frequency - lidocaine 10 mg/mL (1 %) 1-2 mg injection (XYLOCAINE) 0.1-0.2 mL INTRADERMAL PRN - lactated ringers iv infusion 5-30 mL/hr INTRAVENOUS CONTINUOUS - NaCl 0.9% iv flush bag 20 mL INTRAVENOUS PRN - ceFAZolin iv piggyback 2 g in D5W (iso-osmotic) 100 mL (ANCEF) 2 g INTRAVENOUS Pre-Op Once - midazolam (PF) 2 mg injection (VERSED) 2 mg INTRAVENOUS Pre-Op Once Outpatient Medications as of 12/14/2022 Medication Sig - rosuvastatin (CRESTOR) 5 mg tablet TAKE 1 TABLET BY MOUTH AT BEDTIME - omega 3-sev-utb-fish oil 300 mg (120 mg- 180mg)-1,000 mg cap TAKE 2 CAPSULES BY MOUTH AT BEDTIME - VITAMIN B-2 100 mg tab Take 4 tablets by mouth once daily. - amitriptyline (ELAVIL) 50 mg tablet Take 1 tablet by mouth daily at bedtime. - pantoprazole DR (PROTONIX) 40 mg tablet TAKE 1 TABLET BY MOUTH DAILY - Ascorbic Acid 1,000 mg tablet TAKE 1 TABLET BY MOUTH DAILY - VITAMIN D 25 mcg (1,000 unit) tab tablet TAKE 1 TABLET BY MOUTH DAILY - escitalopram oxalate (LEXAPRO) 20 mg tablet Take 1.5 tablets by mouth once daily. - losartan (COZAAR) 50 mg tablet TAKE 1 TABLET BY MOUTH DAILY - metoprolol succinate ER (TOPROL XL) 50 mg 24 hr tablet Take 1 tablet by mouth daily at bedtime. - fluticasone (FLONASE) 50 mcg/actuation nasal spray use 2 (TWO) sprays IN EACH NOSTRIL DAILY AT BEDTIME - tiZANidine (ZANAFLEX) 4 mg tablet Take 1 tablet by mouth twice daily as needed (Headache). - semaglutide (OZEMPIC) 0.25 mg or 0.5 mg(2 mg/1.5 mL) pen Inject 0.25 mg subcutaneously one time a week. - galcanezumab-gnlm (EMGALITY PEN) 120 mg/mL pen Inject 1 mL subcutaneously once every month. Do not shake. Start after completing 240mg loading dose. - naproxen (NAPROSYN) 500 mg tablet Take 1 tablet by mouth twice daily as needed (for pain). Take with food - aspirin, enteric coated (ECOTRIN LOW STRENGTH) 81 mg EC tablet Take 1 tablet by mouth once daily. - CPAP New set up: AutoCPAP 5-15 cm H2O, mask (pt pref), filters, heated humidity AND tubing. Lifetime supplies. SUSANNAH G47.33. - testosterone cypionate (DEPO-TESTOSTERONE) 200 mg/mL injection INJECT 0.5 ml INTRAMUSCULARLY EVERY TEN days. I have interviewed and examined the patient. I have reviewed the medical record and/or (more content not included)... [facility] NURSING PROGon 12-14-2022 NURSING PROG HNO ID: [id number] Author: Mya Daigle RN Service: Nursing Author Type: Registered Nurse Type: Nursing Progress Note Filed: 12/14/2022 9:28 AM Note Text: POST OP LEARNING RESPONSE INSTRUCTION PROVIDED TO: Patient and family member METHOD OF INSTRUCTION: Written instruction - handouts Verbal instruction PATIENT / FAMILY RESPONSE: Verbalizes understanding of: INFECTION MANAGEMENT-Signs and symptoms of an infection and importance of contacting the physician MEDICAL REGIMEN-Importance of following prescribed medical regimen MEDICATION DOSE MISSED-Correct action to take if medication dose is missed MEDICATION PRESCRIBED-Accurate knowledge of prescribed medication prior to discharge MEDICATION ROUTE-Correct route for administration of the prescribed medication MEDICATION SIDE EFFECTS-Side effects associated with the medication that warrant a call to the physician PAIN MANAGEMENT-Effective strategies to manage pain in addition to pain medication PHYSICAL RESTRICTIONS-Physical restrictions and recommendations after discharge from the hospital POST-OPERATIVE INSTRUCTIONS-Correct actions to take to reduce postoperative complications FOLLOW-UP PLAN: Complete - No need for follow-up Patient instructed to call with any further issues SUPPLEMENTAL MATERIAL: None REFERRAL (RECOMMENDATION): None Electronically Signed By: Mya Daigle RN In Department: [facility] NURSING PROG HNO ID: [id number] Author: Miam Negron RN Service: Nursing Author Type: Registered Nurse Type: Nursing Progress Note Filed: 12/14/2022 6:54 AM Note Text: PRE OP LEARNING ASSESSMENT PROCEDURE/SURGERY: SURGERY: left finger tendon transfer READINESS TO LEARN COGNITIVE ABILITY: Alert and oriented MOTIVATION TO LEARN: Interested FAMILY SUPPORT: High - Very involved in pt care PATIENT LEARNS BEST BY: Multiple Methods FACTORS AFFECTING LEARNING: None PHYSICAL LIMITATIONS AFFECTING LEARNING: None Electronically Signed By: Mima Negron RN In Department: [facility] SURGERY [facility] OPERATIVE NOon 12-14-2022 OPERATIVE NO HNO ID: [id number] Author: Brock De La Torre MD Service: Plastic Surgery Author Type: Physician Type: Operative Report Filed: 12/14/2022 9:49 PM Note Text: OPERATIVE/PROCEDURE REPORT LOG ID: [id number] SURGERY/PROCEDURE DATE: 12/14/2022 INCISION/PROCEDURE START TIME: 8:39 AM INCISION CLOSE/PROCEDURE END TIME: 9:16 AM SURGEON(S)/PROCEDURALIST(S ) AND ACCOUNTS PAYABLE BOOKKEEPER(S): Surgeon(s) and Role: * Brock De La Torre MD - Primary * Buffy Richards MD - Resident - Assisting * Denton Marmolejo MD - Fellow No Additional Staff SURGERY/PROCEDURE(S): Left thumb extensor tendon repair, dorsum of finger w/o graft (Zone 1-2) (CPT: 01250) ANESTHESIA: General SURGERY/PROCEDURE DETAILS: A time-out was performed to confirm patient identify and procedure. Regional anesthesia was administered by the anesthesia team. A non-sterile tourniquet was placed on the upper arm of the operative extremity. The hand and forearm on the side of the operation were prepped and draped in the standard sterile fashion. Another time-out was performed prior to starting with the surgical procedure, confirming surgical site and consented procedures. We first removed all sutures that had been previously placed to approximate the lacerations over the dorsal left thumb. We then dissected through the pre-existing lacerations to look for injured structures. We found the central portion of the extensor pollicis longus (EPL) had been lacerated, over the dorsal thumb interphalangeal joint region (zone 1/2). The peripheral portions of the EPL (radial and ulnar to the central portion) remained intact. The central lacerated portion of EPL had a full thickness defect, with the defect going through the dorsal interphalangeal joint (IPJ) capsule. Granulation tissue within the IPJ was excised using a rongeur. From the existing wound openings, we explored proximally and distally to mobilize the intact portions of the EPL. We then proceeded to perform primary repair of the central defect of EPL by centralizing the two lateral remaining portions of EPL. Multiple [id number] 3-0 PDS sutures were placed to centralize the two lateral remaining portions of EPL. After completion of extensor tendon repair, the left hand was placed through tenodesis maneuvers, and the left thumb IPJ showed reproducible extension with full wrist flexion and ulnar deviation. After this, the wound was copiously irrigated using sterile normal saline. Hemostasis was achieved using bipolar cautery. The incision was closed in a single layer using 4-0 Nylon horizontal mattress sutures. A thumb spica splint was applied on the volar aspect of the thumb and hand, to fully extend the thumb to protect the extensor tendon repair. All counts were correct at the conclusion of the case. The patient tolerated the procedure well without any immediate complication. The patient was transported to recovery room in good condition. PRE-OP/PRE-PROCEDURE DIAGNOSIS: Left thumb extensor tendon laceration POST-OP/POST-PROCEDURE DIAGNOSIS: Same as Preop ESTIMATED BLOOD LOSS: 10 mls SPECIMENS: None IMPLANTABLE DEVICES: NONE DRAINS: None COMPLICATIONS: None CLOSURE TECHNIQUE: Primary PARTICIPATION IN SURGERY/PROCEDURE: I/primary surgeon/proceduralist performed the procedure with assistance. SIGNATURE: Brock De La Torre MD PATIENT NAME: José Rojas DATE: December 14, 2022 TIME: 9:30 PM [facility] XR chest 2V*on 12-10-2022 XR chest 2V* [facility] [place] [place] [address] XRay Report Signed Patient: José Rojas MR#: [id number] : 1960 Acct:[id number] Age/Sex: 62 / M ADM Date: 12/09/22 Loc: ER Room: Type: [facility] ER Attending Dr: Copies to: Perry Ledesma DO Ordering Provider: Perry Ledesma DO Date of Service: 12/09/22 XR/XR chest 2V*: Dizziness Chest 2 views CLINICAL HISTORY: Dizziness. COMPARISON: Chest 11/18/2022 FINDINGS: Heart normal in size. Lungs are clear. No free air. XR/XR chest 2V* IMPRESSION: NO ACUTE CARDIOPULMONARY ABNORMALITY. Impression dictated by: Prem Davis Jr., D.ONoni12/10/2022 8:26 AM Dictation Location: [place] [address] Transcribed By: [facility] 12/10/22825 Dictated By: Prem Davis Jr, DO 12/10/22824 Signed By: 12/10/22825 [facility] Activated partial thrombopla stin time (aPTT) in platelet poor plasma by coagulation aOrdered By: Perry Ledesma on 12-09-2022 aPTT Coag (PPP) [Time] 30.1 s 25.1-36.5 [facility] Alanine aminotransferase [En zymatic activity/volume] in Serum or PlasmaOrdered By: Perry Ledesma on 12-09-2022 ALT [Catalytic activity/Vol] 19 U/L 7-52 [facility] Albumin [Mass/volume] in Ser um or Plasma by Bromocresol green (BCG) dye binding methoOrdered By: Perry Ledesma on 12-09-2022 Albumin BCG dye [Mass/Vol] 4.5 g/dL 3.5-5.7 [facility] Alkaline phosphatase [Enzyma tic activity/volume] in Serum or PlasmaOrdered By: Perry Ledesma on 12-09-2022 ALP [Catalytic activity/Vol] 106 U/L 34-104 [facility] Aspartate aminotransferase [ Enzymatic activity/volume] in Serum or PlasmaOrdered By: Perry Ledesma on 12-09-2022 AST [Catalytic activity/Vol] 18 U/L 13-39 [facility] B-Type Natriuretic Peptideon 12-09-2022 Natriuretic peptide B (Bld) [Mass/Vol] 9.0 pg/mL Normal 5-100 [facility] Comment on above: Result Comment: PERF ORMED BY: [place] [address] PATHOLOGIST BURGLAR ALARM SUPERINTENDENT YFN SAMUEL M.D. Performed By: #### R EDRAW AST, REDRAW K #### [address] Basophils Auto (Bld) [#/Vol] Ordered By: Perry Ledesma on 12-09-2022 Basophils (Bld) [#/Vol] 0.1 10*3/uL 0.0-0.2 [facility] Basophils/100 WBC Auto (Bld) Ordered By: Perry Ledesma on 12-09-2022 Basophils/100 WBC (Bld) 1.3 % . [facility] Bilirubin Test strip Ql (U)O rdered By: Perry Ledesma on 12-09-2022 Bilirubin Ql (U) Negative Negative [facility] Bilirubin.direct [Mass/volum e] in Serum or PlasmaOrdered By: Perry Ledesma on 12-09-2022 Bilirubin.direct [Mass/Vol] 0.10 mg/dL 0.03-0.18 [facility] Bilirubin.total [Mass/volume ] in Serum or PlasmaOrdered By: Perry Ledesma on 12-09-2022 Bilirubin [Mass/Vol] 0.3 mg/dL 0.3-1.0 [facility] Calcium [Mass/volume] in Ser um or PlasmaOrdered By: Perry Ledesma on 12-09-2022 Calcium [Mass/Vol] 9.1 mg/dL 8.6-10.3 [facility] Carbon dioxide, total [Moles /volume] in Serum or PlasmaOrdered By: Perry Ledesma on 12-09-2022 CO2 [Moles/Vol] 22.9 mmol/L 21.0-31.0 [facility] Chloride [Moles/volume] in S knig or PlasmaOrdered By: Perry Ledesma on 12-09-2022 Chloride [Moles/Vol] 106 mmol/L 98-107 [facility] Color Auto (U)Ordered By: Kae Ledesma on 12-09-2022 Color (U) Yellow Yellow [facility] Complete Blood Count Auto Di ffon 12-09-2022 Basophils (Bld) [#/Vol] 0.1 10*3/uL Normal 0.0-0.2 [facility] Comment on above: Result Comment: PERF ORMED BY: [facility] [address] [place] [address] PATHOLOGIST BURGLAR ALARM SUPERINTENDENT YFN SAMUEL M.D. Performed By: #### R EDRAW AST, REDRAW K #### [facility] [address] [place] [address] [place] Basophils/100 WBC (Bld) 1.3 % Normal . [facility] Comment on above: Performed By: #### R EDRAW AST, REDRAW K #### [facility] [address] [place] [address] [place] Eosinophils (Bld) [#/Vol] 0.1 10*3/uL Normal 0.0-0.45 [facility] Comment on above: Performed By: #### R EDRAW AST, REDRAW K #### [address] Eosinophils/100 WBC (Bld) 1.8 % Normal . [facility] Comment on above: Performed By: #### R EDRAW AST, REDRAW K #### [address] Erythrocyte distribution width (RBC) [Ratio] 14.6 % Normal 12.0-14.8 [facility] Comment on above: Performed By: #### R EDRAW AST, REDRAW K #### [address] Hematocrit (Bld) [Volume fraction] 37.9 % Low 38.8-50.0 [facility] Comment on above: Performed By: #### R EDRAW AST, REDRAW K #### [address] Hemoglobin (Bld) [Mass/Vol] 13.1 g/dL Normal 13.0-17.0 [facility] Comment on above: Performed By: #### R EDRAW AST, REDRAW K #### [address] Lymphocytes (Bld) [#/Vol] 2.9 10*3/uL Normal 1.00-4.8 [facility] Comment on above: Performed By: #### R EDRAW AST, REDRAW K #### [address] Lymphocytes/100 WBC (Bld) 35.2 % Normal . [facility] Comment on above: Performed By: #### R EDRAW AST, REDRAW K #### [address] MCH (RBC) [Entitic mass] 32.7 pg Normal 27.5-35.2 [facility] Comment on above: Performed By: #### R EDRAW AST, REDRAW K #### [facility] [address] MCV (RBC) [Entitic vol] 94.8 fL Normal 83.5-101 [facility] Comment on above: Performed By: #### R EDRAW AST, REDRAW K #### [facility] [address] [place] [address] Mean Corpuscular HGB Conc 34.5 g/dL Normal 32.5-35.6 [facility] Comment on above: Performed By: #### R EDRAW AST, REDRAW K #### [facility] [address] [place] [address] Monocytes (Bld) [#/Vol] 0.4 10*3/uL Normal 0.0-0.8 [facility] Comment on above: Performed By: #### R EDRAW AST, REDRAW K #### [address] Monocytes/100 WBC (Bld) 20.67 % High 0.00-20.00 [facility] Comment on above: Result Comment: For adults in ED, MDW > 20.0 may be associated with a higher risk of sepsis during the first 12 hrs of hospital admission Performed By: #### R EDRAW AST, REDRAW K #### [address] Monocytes/100 WBC (Bld) 5.3 % Normal . [facility] Comment on above: Performed By: #### R EDRAW AST, REDRAW K #### [facility] [address] [place] [address] [place] Neutrophils (Bld) [#/Vol] 4.7 10*3/uL Normal 1.8-7.7 [facility] Comment on above: Performed By: #### R EDRAW AST, REDRAW K #### [address] Neutrophils/100 WBC (Bld) 56.4 % Normal . [facility] Comment on above: Performed By: #### R EDRAW AST, REDRAW K #### [facility] [address] NRBC% 0.3 /100{WBC} Normal 0-0.5 [facility] Comment on above: Performed By: #### R EDRAW AST, REDRAW K #### [facility] [address] [place] [address] Platelet mean volume (Bld) [Entitic vol] 7.3 fL Normal 6.6-10.1 [facility] Comment on above: Performed By: #### R EDRAW AST, REDRAW K #### [facility] [address] [place] [address] Platelets (Bld) [#/Vol] 341 10*3/uL Normal 150-450 [facility] Comment on above: Performed By: #### R EDRAW AST, REDRAW K #### [facility] [address] [place] [address] RBC (Bld) [#/Vol] 4.00 10*6/uL Normal 3.90-5.60 [facility] Comment on above: Performed By: #### R EDRAW AST, REDRAW K #### [facility] [address] [place] [address] WBC (Bld) [#/Vol] 8.3 10*3/uL Normal 4.1-10.5 [facility] Comment on above: Performed By: #### R EDRAW AST, REDRAW K #### [facility] [address] [place] [address] Comprehensive Metabolic Pane josé 12-09-2022 Albumin [Mass/Vol] 4.5 g/dL Normal 3.5-5.7 [facility] Comment on above: Performed By: #### R EDRAW AST, REDRAW K #### [address] Albumin/Globulin [Mass ratio] 1.7 {ratio} Normal [facility] Comment on above: Performed By: #### R EDRAW AST, REDRAW K #### [facility] [address] ALP [Catalytic activity/Vol] 106 U/L High 34-104 [facility] Comment on above: Performed By: #### R EDRAW AST, REDRAW K #### [facility] [address] ALT [Catalytic activity/Vol] 19 U/L Normal 7-52 [facility] Comment on above: Performed By: #### R EDRAW AST, REDRAW K #### [facility] [address] Anion gap [Moles/Vol] 12.6 mmol/L Normal 6.0-15.0 [facility] Comment on above: Performed By: #### R EDRAW AST, REDRAW K #### [facility] [address] [place] [address] AST [Catalytic activity/Vol] 18 U/L Normal 13-39 [facility] Comment on above: Performed By: #### R EDRAW AST, REDRAW K #### [facility] [address] [place] [address] Bilirubin [Mass/Vol] 0.3 mg/dL Normal 0.3-1.0 [facility] Comment on above: Performed By: #### R EDRAW AST, REDRAW K #### [facility] [facility] [address] [place] [address] Calcium [Mass/Vol] 9.1 mg/dL Normal 8.6-10.3 [facility] Comment on above: Performed By: #### R EDRAW AST, REDRAW K #### [facility] [address] [place] [address] [place] Chloride [Moles/Vol] 106 mmol/L Normal 98-107 [facility] Comment on above: Performed By: #### R EDRAW AST, REDRAW K #### [facility] [address] [place] [address] CO2 [Moles/Vol] 22.9 mmol/L Normal 21.0-31.0 [facility] Comment on above: Performed By: #### R EDRAW AST REDRAW K #### [facility] [address] Creatinine [Mass/Vol] 0.92 mg/dL Normal 0.70-1.30 [facility] Comment on above: Performed By: #### R EDRAW AST REDRAW K #### [facility] [address] [place] [address] [place] Creatinine Clr Calc Pharmacy 100.58 [facility] Comment on above: Performed By: #### R EDRAW AST REDRAW K #### [facility] [address] [place] [address] [place] GFR/1.73 sq M.predicted MDRD (S/P/Bld) [Vol rate/Area] mL/min/{1.73_m2} [facility] Comment on above: Performed By: #### R EDRAW AST REDRAW K #### [facility] [address] Globulin (S) [Mass/Vol] 2.7 g/dL [facility] Comment on above: Performed By: #### R EDRAW AST REDRAW K #### [facility] [address] Glucose [Mass/Vol] 99 mg/dL Normal 70-100 [facility] Comment on above: Result Comment: [place] Glucose Reference Range is dependent on time and content of last meal. Glucose of more than 200 mg/dL in a nonstressed, ambulatory subject supports the diagnosis of Diabetes Mellitus. ADA recommended reference range Performed By: #### R EDRAW AST REDRAW K #### [facility] [address] [place] [address] [place] Potassium [Moles/Vol] 3.5 mmol/L Normal 3.5-5.1 [facility] Comment on above: Performed By: #### R EDRAW AST REDRAW K #### [facility] [address] [place] [address] [place] Protein [Mass/Vol] 7.2 g/dL Normal 6.4-8.9 [facility] Comment on above: Performed By: #### R EDRAW AST, REDRAW K #### [facility] [address] [place] [address] [place] Sodium [Moles/Vol] 138 mmol/L Normal 136-145 [facility] Comment on above: Performed By: #### R EDRAW AST, REDRAW K #### [facility] [address] [place] [address] [place] Urea nitrogen [Mass/Vol] 9 mg/dL Normal 7-25 [facility] Comment on above: Performed By: #### R EDRAW AST, REDRAW K #### [place] [address] [place] Creatine Kinaseon 12-09-2022 CK [Catalytic activity/Vol] 108 U/L Normal 30-223 [facility] Comment on above: Performed By: #### R EDRAW AST, REDRAW K #### [address] Creatine kinase [Enzymatic a ctivity/volume] in Serum or PlasmaOrdered By: Perry Ledesma on 12-09-2022 CK [Catalytic activity/Vol] 108 U/L 30- [facility] Creatinine [Mass/volume] in Serum or PlasmaOrdered By: Perry Ledesma on 12-09-2022 Creatinine [Mass/Vol] 0.92 mg/dL 0.70-1.30 [facility] ECG 12 lead ECGon 12-09-2022 ECG 12 lead ECG [facility] [place] [place] [address] Electrocardiograph Report Signed Patient: José Rojas MR#: [id number] : 1960 Acct:[id number] Age/Sex: 62 / M ADM Date: 12/09/22 Loc: ER Room: Type: [facility] ER Attending Dr: Ordering Provider: Perry Ledesma DO Date of Service: 12/09/2202/21/2035 ECG/ECG 12 lead ECG: Dizziness Copies to: Test Reason : Blood Pressure : 119/081 mmHG Vent. Rate : 106 BPM Atrial Rate : 106 BPM P-R Int : 150 ms QRS Dur : 092 ms QT Int : 338 ms P-R-T Axes : 036 091 010 degrees QTc Int : 448 ms Sinus tachycardia Rightward axis Borderline ECG When compared with ECG of 18-NOV-2022 16:42, Confirmed by PERRY LEDESMA DO ([id number]) on 12/10/2022 1:17:33 AM Referred By: Electronically Signed By:PERRY LEDESMA DO Transcribed By: MUS Signed By Perry Ledesma DO 0117 Normal [facility] Eosinophils Auto (Bld) [#/Vo l]Ordered By: Perry Ledesma on 12-09-2022 Eosinophils (Bld) [#/Vol] 0.1 10*3/uL 0.0-0.45 [facility] Eosinophils/100 WBC Auto (Bl d)Ordered By: Perry Ledesma on 12-09-2022 Eosinophils/100 WBC (Bld) 1.8 % . [facility] Erythrocyte distribution wid th Auto (RBC) [Ratio]Ordered By: Perry Ledesma on 12-09-2022 Erythrocyte distribution width (RBC) [Ratio] 14.6 % 12.0-14.8 [facility] Ethanol [Mass/volume] in Ser um or PlasmaOrdered By: Perry Ledesma on 12-09-2022 Ethanol [Mass/Vol] 158 mg/dL [facility] Ethanol [Mass/Vol] 0.158 % [facility] Ethyl Alcohol Profileon 11-30 Ethanol [Mass/Vol] 158 mg/dL Normal [facility] Comment on above: Performed By: #### E NERGITO #### [facility] [address] [place] [address] Percent Ethanol 0.158 % Normal [facility] Comment on above: Result Comment: PERF ORMED BY: [place] [address] PATHOLOGIST BURGLAR ALARM SUPERINTENDENT YFN SAMUEL M.D. Performed By: #### E NEGRITO #### [facility] [address] [place] [address] [place] Globulin Calc (S) [Mass/Vol] Ordered By: Perry Ledesma on 12-09-2022 Globulin (S) [Mass/Vol] 2.7 g/dL [facility] Glucose [Mass/volume] in Ser um or PlasmaOrdered By: Perry Ledesma on 12-09-2022 Glucose [Mass/Vol] 99 mg/dL 70-100 [facility] Comment on above: ADA recommended refe rence rangeRandom Glucose Reference Range is dependent on time and content of last meal. Glucose of more than 200 mg/dL in a nonstressed, ambulatory subject supports the diagnosis of Diabetes Mellitus. Hematocrit Auto (Bld) [Volum e fraction]Ordered By: Perry Ledesma on 12-09-2022 Hematocrit (Bld) [Volume fraction] 37.9 % 38.8-50.0 [facility] Hemoglobin [Mass/volume] in BloodOrdered By: Perry Ledesma on 12-09-2022 Hemoglobin (Bld) [Mass/Vol] 13.1 g/dL 13.0-17.0 [facility] Hepatic Panelon 12-09-2022 Bilirubin,Indirect 0.2 mg/dL Normal [facility] Comment on above: Performed By: #### R WENDY ASTJOY K #### [facility] [address] Bilirubin.indirect [Mass/Vol] 0.10 mg/dL Normal 0.03-0.18 [facility] Comment on above: Performed By: #### R WENDY ASTRHINAW K #### [facility] [address] Ketones Auto test strip (U) [Mass/Vol]Ordered By: Perry Ledesma on 12-09-2022 Ketones (U) [Mass/Vol] Negative Negative [facility] - CoagulationOrde red By: Perry Ledesma on 12-09-2022 PT Coag (PPP) [Time] 11.4 s 9.0-12.9 [facility] Leukocytes [#/volume] correc roxie for nucleated erythrocytes in Blood by Automated counOrdered By: Perry Ledesma on 12-09-2022 WBC corrected for nucl RBC Auto (Bld) [#/Vol] 8.3 10*3/uL 4.1-10.5 [facility] Lipaseon 12-09-2022 Lipase [Catalytic activity/Vol] 46.0 U/L Normal 11.0-82.0 [facility] Comment on above: Result Comment: PERF ORMED BY: [facility] [address] [place] [address] PATHOLOGIST BURGLAR ALARM SUPERINTENDENT YFN SAMUEL M.D. Performed By: #### R EDRAW AST, REDRAW K #### [facility] [address] Lipase [Enzymatic activity/v olume] in Serum or PlasmaOrdered By: Perry Ledesma on 12-09-2022 Lipase [Catalytic activity/Vol] 46.0 U/L 11.0-82.0 [facility] Lymphocytes Auto (Bld) [#/Vo l]Ordered By: Perry Ledesma on 12-09-2022 Lymphocytes (Bld) [#/Vol] 2.9 10*3/uL 1.00-4.8 [facility] Lymphocytes/100 WBC Auto (Bl d)Ordered By: Perry Ledesma on 12-09-2022 Lymphocytes/100 WBC (Bld) 35.2 % . [facility] MCH Auto (RBC) [Entitic mass ]Ordered By: Perry Ledesma on 12-09-2022 MCH (RBC) [Entitic mass] 32.7 pg 27.5-35.2 [facility] MCHC Auto (RBC) [Mass/Vol]Or dered By: Perry Ledesma on 12-09-2022 MCHC (RBC) [Mass/Vol] 34.5 g/dL 32.5-35.6 [facility] MCV Auto (RBC) [Entitic vol] Ordered By: Perry Ledesma on 12-09-2022 MCV (RBC) [Entitic vol] 94.8 fL 83.5-101 [facility] Monocyte distribution width [Entitic volume] in Blood by AutomatedOrdered By: Perry Ledesma on 12-09-2022 Monocyte distribution width Auto (Bld) [Entitic vol] 20.67 % 0.00-20.00 [facility] Comment on above: For adults in ED, MD W > 20.0 may be associated with a higher risk of sepsis during the first 12 hrs of hospital admission Monocytes Auto (Bld) [#/Vol] Ordered By: Perry Ledesma on 12-09-2022 Monocytes (Bld) [#/Vol] 0.4 10*3/uL 0.0-0.8 [facility] Monocytes/100 WBC Auto (Bld) Ordered By: Perry Ledesma on 12-09-2022 Monocytes/100 WBC (Bld) 5.3 % . [facility] Natriuretic peptide B [Mass/ Vol]Ordered By: Perry Ledesma on 12-09-2022 Natriuretic peptide B (Bld) [Mass/Vol] 9.0 pg/mL 5-100 [facility] Neutrophils Auto (Bld) [#/Vo l]Ordered By: Perry Ledesma on 12-09-2022 Neutrophils (Bld) [#/Vol] 4.7 10*3/uL 1.8-7.7 [facility] Neutrophils/100 WBC Auto (Bl d)Ordered By: Perry Ledesma on 12-09-2022 Neutrophils/100 WBC (Bld) 56.4 % . [facility] Nitrite Test strip Ql (U)Ord ered By: Perry Ledesma on 12-09-2022 Nitrite Ql (U) Negative Negative [facility] No Panel InformationOrdered By: Perry Ledesma on 12-09-2022 Estimated GFR (CKD-EPI) > 60.0 mL/Min [facility] Creatinine Clearance (Chem 100.58 [facility] Nucleated erythrocytes [Pres ence] in Blood by Automated countOrdered By: Perry Ledesma on 12-09-2022 Nucleated RBC Auto Ql (Bld) 0.3 /100{WBC} 0-0.5 [facility] Partial Thromboplastin Timeo n 12-09-2022 aPTT Coag (Bld) [Time] 30.1 s Normal 25.1-36.5 [facility] Comment on above: Result Comment: PERF ORMED BY: [facility] [address] [place] [address] PATHOLOGIST BURGLAR ALARM SUPERINTENDENT YFN SAMUEL M.D. Performed By: #### R EDW AST, REDRAW K #### [facility] [address] Platelet mean volume Auto (B ld) [Entitic vol]Ordered By: Perry Ledesma on 12-09-2022 Platelet mean volume (Bld) [Entitic vol] 7.3 fL 6.6-10.1 [facility] Platelet poor plasma interna tional normalized ratio (INR) by coagulation assay (relatOrdered By: Perry Ledesma on 12-09-2022 INR Coag (PPP) [Relative time] 1.0 {INR} [facility] Comment on above: INR Therapeutic Rang e A) Pre- and Peroperative OAT started two weeks before surgery. NOT HIP SURGERY: 1.5 - 2.5 HIP SURGERY: 2 - 3B) Primary and secondary prevention of venous THROMBOSIS: 2 - 3C) Active venous thrombosis, pulmonary embolismand prevention of recurrent venous thrombosis: 2 - 3D) Prevention of arterial thromboembolismincluding patients with mechanical heart valves: 3 - 4.5 Platelets Auto (Bld) [#/Vol] Ordered By: Perry Ledesma on 12-09-2022 Platelets (Bld) [#/Vol] 341 10*3/uL 150-450 [facility] Potassium [Moles/volume] in Serum or PlasmaOrdered By: Perry Ledesma on 12-09-2022 Potassium [Moles/Vol] 3.5 mmol/L 3.5-5.1 [facility] Protein Auto test strip (U) [Mass/Vol]Ordered By: Perry Ledesma on 12-09-2022 Protein (U) [Mass/Vol] Negative Negative [facility] Protein [Mass/volume] in Ser um or PlasmaOrdered By: Perry Ledesma on 12-09-2022 Protein [Mass/Vol] 7.2 g/dL 6.4-8.9 [facility] Prothrombin Time INRon 12-09 INR Coag (PPP) [Relative time] 1.0 {INR} Normal [facility] Comment on above: Result Comment: INR Therapeutic Range A) Pre- and Peroperative OAT started two weeks before surgery. NOT HIP SURGERY: 1.5 - 2.5 HIP SURGERY: 2 - 3 B) Primary and secondary prevention of venous THROMBOSIS: 2 - 3 C) Active venous thrombosis, pulmonary embolism and prevention of recurrent venous thrombosis: 2 - 3 D) Prevention of arterial thromboembolism including patients with mechanical heart valves: 3 - 4.5 Performed By: #### R EDRAW AST, REDRAW K #### [facility] [address] PT Coag (PPP) [Time] 11.4 s Normal 9.0-12.9 [facility] Comment on above: Performed By: #### R EDRAW AST, REDRAW K #### [facility] [address] RBC Auto (Bld) [#/Vol]Ordere d By: Perry Ledesma on 12-09-2022 RBC (Bld) [#/Vol] 4.00 10*6/uL 3.90-5.60 [facility] Serum or plasma albumin/glob ulin mass ratioOrdered By: Perry Ledesma on 12-09-2022 Albumin/Globulin [Mass ratio] 1.7 {ratio} [facility] Serum or plasma anion gap de terminationOrdered By: Perry Ledesma on 12-09-2022 Anion gap [Moles/Vol] 12.6 mmol/L 6.0-15.0 [facility] Serum or plasma non-glucuron idated bilirubin measurement (mass/volume)Ordered By: Perry Ledesma on 12-09-2022 Bilirubin.indirect [Mass/Vol] 0.2 mg/dL [facility] Sodium [Moles/volume] in Ser um or PlasmaOrdered By: Perry Ledesma on 12-09-2022 Sodium [Moles/Vol] 138 mmol/L 136-145 [facility] Specific gravity Auto test s trip (U) [Rel density]Ordered By: Perry Ledesma on 12-09-2022 Specific gravity (U) [Rel density] 1.010 1.001-1.03 0 [facility] Troponin I High Sensitivityo n 12-09-2022 Troponin I High Sensitivity 4.9 pg/mL Normal 0.0-20.0 [facility] Comment on above: Result Comment: PERF ORMED BY: [facility] [address] [place] [address] PATHOLOGIST BURGLAR ALARM SUPERINTENDENT YFN SAMUEL M.D. Performed By: #### R JOY WATKINS #### [facility] [address] Troponin I.cardiac [Mass/vol ume] in Serum or Plasma by Detection limit <= 0.01 ng/Ordered By: Perry Ledesma on 12-09-2022 Troponin I.cardiac DL <= 0.01 ng/mL [Mass/Vol] 4.9 pg/mL 0.0-20.0 [facility] Urea nitrogen [Mass/volume] in Serum or PlasmaOrdered By: Perry Ledesma on 12-09-2022 Urea nitrogen [Mass/Vol] 9 mg/dL 11-23 [facility] Urinalysison 12-09-2022 Appearance (U) Clear Normal Clear [facility] Comment on above: Order Comment: Name Collection Type:: Clean-Voided Midstream Performed By: #### U A ####[facility] [place] [address] [place] Bilirubin,Urine Negative Normal Negative [facility] Comment on above: Order Comment: Name Collection Type:: Clean-Voided Midstream Performed By: #### U A ####[facility] [place] [address] [place] Color (U) Yellow Normal Yellow [facility] Comment on above: Order Comment: Name Collection Type:: Clean-Voided Midstream Performed By: #### U A ####[facility] [place] [address] [place] Glucose Ql (U) Normal Normal Normal [facility] Comment on above: Order Comment: Name Collection Type:: Clean-Voided Midstream Performed By: #### U A ####[address] [place] [address] [place] Ketones Ql (U) Negative Normal Negative [facility] Comment on above: Order Comment: Name Collection Type:: Clean-Voided Midstream Performed By: #### U A ####[address] [address] [facility] Leukocyte esterase Test strip Ql (U) Negative Normal Negative [facility] Comment on above: Order Comment: Name Collection Type:: Clean-Voided Midstream Performed By: #### U A ####[address] [address] [facility] Nitrite,Urine Negative Normal Negative [facility] Comment on above: Order Comment: Name Collection Type:: Clean-Voided Midstream Performed By: #### U A ####[address] [address] [facility] Occult Blood,Urine Negative Normal Negative [facility] Comment on above: Order Comment: Name Collection Type:: Clean-Voided Midstream Result Comment: PERF ORMED BY: [facility] [address] [place] [id number] PATHOLOGIST BURGLAR ALARM SUPERINTENDENT YFN SAMUEL M.D. Performed By: #### U A ####[address] [address] [facility] pH (U) 5.5 [pH] Normal 5.0-9.0 [facility] Comment on above: Order Comment: Name Collection Type:: Clean-Voided Midstream Performed By: #### U A ####[address] [address] [facility] Protein,Urine Negative Normal Negative [facility] Comment on above: Order Comment: Name Collection Type:: Clean-Voided Midstream Performed By: #### U A ####[address] [address] [facility] Specificy [place],Urine 1.010 Normal 1.001-1.03 0 [facility] Comment on above: Order Comment: Name Collection Type:: Clean-Voided Midstream Performed By: #### U A ####[address] [address] [facility] Urobilinogen,Urine Normal Normal Normal [facility] Comment on above: Order Comment: Name Collection Type:: Clean-Voided Midstream Performed By: #### U A ####[facility] [address] [place] [address] [facility] Urine clarity by refractomet ry automatedOrdered By: Perry Ledesma on 12-09-2022 Clarity Refractometry automated (U) Clear Clear [facility] Urine glucose measurement by automated test strip (mass/volume)Ordered By: Perry Ledesma on 12-09-2022 Glucose Auto test strip (U) [Mass/Vol] Normal mg/dL Normal [facility] Urine hemoglobin detection b y automated test stripOrdered By: Perry Ledesma on 12-09-2022 Hemoglobin Auto test strip Ql (U) Negative Negative [facility] Urine leukocyte esterase det ection by automated test stripOrdered By: Perry Ledesma on 12-09-2022 Leukocyte esterase Auto test strip Ql (U) Negative Negative [facility] Urobilinogen Auto test strip (U) [Mass/Vol]Ordered By: Perry Ledesma on 12-09-2022 Urobilinogen (U) [Mass/Vol] Normal mg/dL Normal [facility] WBC Auto (Bld) [#/Vol]Ordere d By: Perry Ledesma on 12-09-2022 WBC (Bld) [#/Vol] 8.3 10*3/uL 4.1-10.5 [facility] pH Auto test strip (U)Ordere d By: Perry Ledesma on 12-09-2022 pH (U) 5.5 [pH] 5.0-9.0 [facility] HISTORY PHYSICALon HISTORY PHYSICAL HNO ID: [id number] Author: Mary Navarrete PA-C Service: ? Author Type: Physician Automotive Sales Specialist Type: HANDP Filed: 12/07/2022 2:27 PM Note Text: HISTORY AND PHYSICAL EXAMINATION SERVICE DATE: 12/07/2022 SERVICE TIME: 12:54 PM PRIMARY CARE PHYSICIAN: Raheel Hunt DO REASON FOR VISIT: José Rojas is a 62 year old year old male who is scheduled for Procedure(s) (LRB): TRANSFER 1ST TENDON FOREARM (Left) at the request of Dr. De La Torre for consultation. My final recommendation will be communicated back to the requesting physician by way of shared medical record or letter. The patient has the following: ACTIVE PROBLEM LIST Radicular Pain of Right Lower Extremity Vitamin D Deficiency Lumbago Misuse of Drugs Opioid Dependence (Hcc) Myofascial Pain Syndrome Neck Pain Lumbar Spinal Stenosis Testosterone Deficiency Hypogonadism in Male Osteoarthrosis, Unspecified Whether Generalized Or Localized, Pelvic Region and Thigh Epididymal Mass Adenomatoid Tumor Right Shoulder Pain Cigarette Nicotine Dependence Without Complication Bilateral Low Back Pain Without Sciatica Cervicalgia Secondary Osteoarthritis of Multiple Sites Fibromyalgia Chest Pain Syncope Heart Palpitations Dizziness Mixed Hyperlipidemia Atherosclerosis of [place] Coronary Artery of [place] Heart With Stable Angina Pectoris (Hcc) Encounter for Screening for Malignant Neoplasm of Colon Anxiety Osteoarthritis of Right Hip Medial Meniscus Tear Htn (Hypertension) Floaters, Bilateral Asteroid Hyalosis of Right Eye Primary Osteoarthritis of Right Hip Degeneration of Lumbar Intervertebral Disc Scoliosis (And Kyphoscoliosis), Idiopathic Sacroiliac Joint Pain Left Cervical Radiculopathy Achilles Rupture, Left Achilles Tendinosis Achilles Tendinitis of Left Lower Extremity Enthesopathy of Foot Achilles Tendon Pain Calcification of Tendon Traumatic Complete Tear of Right Rotator Cuff Status post arthroscopy of right shoulder (01/17/19) Epididymitis Testis Pain Rupture of Right Distal Biceps Tendon Status Post Right Distal Biceps Tendon Repair (12/27/2019) Acute NM (Hcc) Gerd (Gastroesophageal Reflux Disease) Lung Nodule Acquired Hallux Limitus of Left Foot Pain in Toe of Left Foot Sebaceous Cyst Concussion With Loss of Consciousness Cognitive Communication Deficit Obesity, Class I, Bmi 30-34.9 Sleep Apnea Other Specified Injury of Extensor Muscle, Fascia and Tendon of Left Thumb At Wrist and Hand Level, Initial Encounter Subjective CHIEF COMPLAINT: Decreased left thumb extension HPI: Patient is a 62 year old male presenting for pre-anesthesia consultation. Patient reports that 2 weeks ago he left thumb with a sharp blade. Patient is unsure of what he was cutting at that time. 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 Current rates pain 5 out of 10 today and describes it as a burning sensation. Endorses some numbness and tingling in his left thumb. Patient reports he has decreased left thumb extension. Patient has been recommended for above surgery. PAST MEDICAL HISTORY Diagnosis Date Acquired hallux limitus of left foot Acute NM (HCC) 08/2007 angina - bare metal stent x1 - to see Dr Ortiz 08/30 Arthritis of right hip inj helps - needs THR, 06/15/17:insurance did not approve Back pain 10/14/2015 pain management rec CPRP - do not refill percocet - 07/08/17:send to [facility] Chronic pain of toe of left foot Depression zoloft spinning couldn't get going, prozac creating action (act on neighbor) - celexa ETOH abuse Fibromyalgia 05/22/20:saw pain psychologist, used mental control to ignore pains GERD (gastroesophageal reflux disease) aciphex Hematuria 2019 saw urology in [place] Hiatal hernia History of PTCA Dr Germain HTN (hypertension) lisinopril Hyperlipidemia lipitor Lung nodule 10/16/2014 6 mm - recheck at 1 yr and 2 yrs NEGATIVE HISTORY OF No pn,tb,ca,dm Spinal stenosis 1995 accident went to PT - neck, mid back, right leg, 10/09, percocet / tid - Dr Brooks (pain management) - tried fentayl, methadone Testicular lump s/p removal, benign - testosterone - Dr Valentine PAST SURGICAL HISTORY Procedure Laterality Date APPENDECTOMY 1983 PAST SURGICAL HISTORY OF 2008 one coronary stent/heart cath with stent PAST SURGICAL HISTORY OF 08/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 PAST SURGICAL HISTORY OF colonoscopy PAST SURGICAL HISTORY OF Left arthroscopy left knee PAST SURGICAL HISTORY OF Right shoulder and bicep PAST SURGICAL HISTORY OF Right hip PAST SURGICAL HISTORY OF Left toe TOTAL HIP REPLACEMENT Left 06/2022 FAMILY HISTORY Problem Relation Age of Onset other (back pain) Father neck spurs Heart Mother 45 NM, arthritis other (back pain) Brother None Sister x2, FM SOCIAL HISTORY: Social History Tobacco Use Smoking status: Every Day Packs/day: 0.50 (more content not included)... [facility] -- JOSÉ ROJAS ([id number]) 1960 M Date Time Provider Department 12/06/22 2:00 PM ALLAN, BROCK PLAFVW During your visit today, we recorded the following information about you: Brock De La Torre MD 12/06/2022 2:50 PM Signed CC: L thumb tendon injury. HPI: Mr. Rojas is a R hand dominant 62 year old male who presents with a chief complaint of inability to extend his L thumb. He sustained a laceration to the dorsal aspect of his L thumb interphalangeal joint (IPJ) region about 2-3 weeks ago. He was initially seen at [facility], but did not get any definitive treatment. [facility] desiring treatment to attempt to restore his L thumb IPJ extension. 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 He has history of other tendon injury/tendon surgery, including R distal biceps tendon rupture/reconstruction. (+) active tobacco use. PAST MEDICAL HISTORY Diagnosis Date Acquired hallux limitus of left foot Acute NM (HCC) 08/2007 angina - bare metal stent x1 - to see Dr Ortiz 08/30 Arthritis of right hip inj helps - needs THR, 06/15/17:insurance did not approve Back pain 10/14/2015 pain management rec CPRP - do not refill percocet - 07/08/17:send to [facility] Chronic pain of toe of left foot Depression zoloft spinning couldn't get going, prozac creating action (act on neighbor) - celexa ETOH abuse Fibromyalgia 05/22/20:saw pain psychologist, used mental control to ignore pains GERD (gastroesophageal reflux disease) aciphex Hematuria 2019 saw urology in [place] Hiatal hernia History of PTCA Dr Germain HTN (hypertension) lisinopril Hyperlipidemia lipitor Lung nodule 10/16/2014 6 mm - recheck at 1 yr and 2 yrs NEGATIVE HISTORY OF No pn,tb,ca,dm Spinal stenosis 1995 accident went to PT - neck, mid back, right leg, 10/09, percocet 1/2 tid - Dr Brooks (pain management) - tried fentayl, methadone Testicular lump s/p removal, benign - testosterone - Dr Valentine Current Outpatient Medications Medication Sig Dispense Refill rosuvastatin (CRESTOR) 5 mg tablet TAKE 1 TABLET BY MOUTH AT BEDTIME 30 tablet 11 omega 2-qdm-vjg-fish oil 300 mg (120 mg- 180mg)-1,000 mg cap TAKE 2 CAPSULES BY MOUTH AT BEDTIME 60 capsule 8 tiZANidine (ZANAFLEX) 4 mg tablet Take 1 tablet by mouth twice daily as needed (Headache). 60 tablet 2 VITAMIN B-2 100 mg tab Take 4 tablets by mouth once daily. 360 tablet 3 amitriptyline (ELAVIL) 50 mg tablet Take 1 tablet by mouth daily at bedtime. 90 tablet 3 semaglutide (OZEMPIC) 0.25 mg or 0.5 mg(2 mg/1.5 mL) pen Inject 0.25 mg subcutaneously one time a week. 1.5 mL 0 divalproex ER (DEPAKOTE ER) 500 mg 24 hr tablet Take 1 tablet by mouth daily at bedtime for 14 days. 14 tablet 0 verapamil SR (CALAN SR, ISOPTIN SR) 180 mg CR tablet Take 1 tablet by mouth daily at bedtime. 90 tablet 0 galcanezumab-gnlm (EMGALITY PEN) 120 mg/mL pen Inject 1 mL subcutaneously once every month. Do not shake. Start after completing 240mg loading dose. [address] (PROTONIX) 40 mg tablet TAKE 1 TABLET BY MOUTH DAILY 30 tablet 11 albuterol HFA (PROAIR HFA) 90 mcg/actuation inhaler 2 Puffs every 4 hours as needed for wheezing/shortness of breath. Take as directed 1 Each 11 naproxen (NAPROSYN) 500 mg tablet Take 1 tablet by mouth twice daily as needed (for pain). Take with food 60 tablet 5 Ascorbic Acid 1,000 mg tablet TAKE 1 TABLET BY MOUTH DAILY 90 tablet 3 VITAMIN D 25 mcg (1,000 unit) tab tablet TAKE 1 TABLET BY MOUTH DAILY 90 tablet 3 escitalopram oxalate (LEXAPRO) 20 mg tablet Take 1.5 tablets by mouth once daily. 45 tablet 11 cephALEXin (KEFLEX) 500 mg capsule Take 1 capsule by mouth three times daily. (Patient not taking: Reported on 04/16/2022) 30 capsule 1 losartan (COZAAR) 50 mg tablet TAKE 1 TABLET BY MOUTH DAILY 90 tablet 3 metoprolol succinate ER (TOPROL XL) 50 mg 24 hr tablet Take 1 tablet by mouth daily at bedtime. 90 tablet 3 [place]-2-ABN-EPA-Fish Oil 1,000 mg (120 mg-180 mg) cap TAKE 2 CAPSULES BY MOUTH once DAILY AT BEDTIME 60 capsule 11 omega-3 fatty acids 1,000 mg cap Take 2 capsules by mouth once daily. At bedtime 60 capsule 1 aspirin, enteric coated (ECOTRIN LOW STRENGTH) 81 mg EC tablet Take 1 tablet by mouth once daily. 90 tablet 3 fluticasone (FLONASE) 50 mcg/actuation nasal spray use 2 (TWO) sprays IN EACH NOSTRIL DAILY AT BEDTIME 16 g 11 CPAP New set up: AutoCPAP 5-15 cm H2O, mask (pt pref), filters, heated humidity AND tubing. Lifetime supplies. SUSANNAH G47.33. 1 Each 0 testosterone cypionate (DEPO-TESTOSTERONE) 200 mg/mL injection INJECT 0.5 ml INTRAMUSCULARLY EVERY TEN days. 6 mL 1 No current facility-administered medications for this visit. ALLERGIES No Known Allergies PE: Exam of the L upper limb revealed: Healed lacerat (more content not included)... Normal [facility] XR HAND GENERAL 3V PA/LAT/OB L LEFTon 12-02-2022 [facility] Basic metabolic 2000 panelon 11-22-2022 Anion gap [Moles/Vol] 12 mmol/L 10 - 20 Met [facility] Calcium [Mass/Vol] 8.6 mg/dL 8.4 - 10. 4 mg/dL [facility] Chloride [Moles/Vol] 102 mmol/L 97 - 11 1 mmol/L [facility] CO2 [Moles/Vol] 23 mmol/L 21 - 30 mmol/L [facility] Creatinine [Mass/Vol] 0.68 mg/dL Low 0.80 - 1.30 mg/dL [facility] GFR/1.73 sq M.predicted MDRD (S/P/Bld) [Vol rate/Area] 106 mL/min/{1.73_m2} - PINF [facility] Glucose [Mass/Vol] 95 mg/dL 80 - 116 mg/dL [facility] Interpretation and review of laboratory results Abnormal [facility] Potassium [Moles/Vol] 4.0 mmol/L 3.3 - 5.3 mmol/L [facility] Sodium [Moles/Vol] 133 mmol/L Low 135 - 148 mmol/L [facility] Urea nitrogen [Mass/Vol] 10 mg/dL 8 - 22 mg/dL [facility] CBC WITH DIFFERENTIALon 10-31 Basophils (Bld) [#/Vol] 0.08 10*3/uL 0.00 - 0.20 K/uL [facility] Basophils/100 WBC (Bld) 0.8 % NINF - 1.9 % [facility] Eosinophils (Bld) [#/Vol] 0.27 10*3/uL 0.00 - 0.70 K/uL [facility] Eosinophils/100 WBC (Bld) 3.0 % 0.1 - 4.0 % [facility] Erythrocyte distribution width (RBC) [Ratio] 14.9 % High 11.5 - 14.5 % [facility] Hematocrit (Bld) [Volume fraction] 34.7 % Low 41.0 - 53.0 % [facility] Hemoglobin (Bld) [Mass/Vol] 11.5 g/dL Low 13.9 - 16.3 g/dL [facility] Interpretation and review of laboratory results Abnormal [facility] Lymphocytes (Bld) [#/Vol] 1.66 10*3/uL 1.00 - 4.80 K/uL [facility] Lymphocytes/100 WBC (Bld) 18.5 % Low 24.0 - 44.0 % [facility] MCH (RBC) [Entitic mass] 32.1 pg 26.0 - 34.0 pg [facility] MCHC (RBC) [Mass/Vol] 33.3 g/dL 32.0 - 35.9 g/dL [facility] MCV (RBC) [Entitic vol] 96 fL 80 - 100 fL [facility] Monocyte distribution width Auto (Bld) [Entitic vol] [facility] Monocytes (Bld) [#/Vol] 0.71 10*3/uL 0.20 - 1.00 K/uL [facility] Monocytes/100 WBC (Bld) 7.9 % 2.0 - 11.0 % [facility] Neutrophils (Bld) [#/Vol] 6.29 10*3/uL 1.50 - 8.00 K/uL [facility] Neutrophils/100 WBC (Bld) 69.8 % 31.0 - 76.0 % [facility] Platelet mean volume (Bld) [Entitic vol] 7.3 fL Low 7.5 - 11.2 fL [facility] Platelets (Bld) [#/Vol] 217 10*3/uL 150 - 400 K/uL [facility] RBC (Bld) [#/Vol] 3.60 10*6/uL Low [facility] WBC (Bld) [#/Vol] 9.0 10*3/uL 4.5 - 11.5 K/uL [facility] GLUCOSE, FINGERSTICK-IN OFFI CEon 11-22-2022 Glucose [Mass/Vol] 120 mg/dL High 80 - 116 mg/dL [facility] Interpretation and review of laboratory results Abnormal [facility] Glucose [Mass/Vol] 89 mg/dL 80 - 116 mg/dL [facility] Interpretation and review of laboratory results Normal [facility] Glucose [Mass/Vol] 113 mg/dL 80 - 116 mg/dL [facility] Interpretation and review of laboratory results Normal [facility] MAGNESIUMon 11-22-2022 Magnesium [Mass/Vol] 1.8 mg/dL 1.6 - 2 .8 mg/dL [facility] No Panel Informationon 11-22 Interpretation and review of laboratory results Normal [facility] PHOSPHORUSon 11-22-2022 Phosphate [Mass/Vol] 4.3 mg/dL 2.5 - 4 .8 mg/dL [facility] TRIGLYCERIDESon 11-22-2022 Interpretation and review of laboratory results Abnormal [facility] Triglyceride [Mass/Vol] 317 mg/dL High NINF - 151 mg/dL [facility] Basic metabolic 2000 panelon 11-21-2022 Anion gap [Moles/Vol] 15 mmol/L 10 - 20 Met [facility] Calcium [Mass/Vol] 8.5 mg/dL 8.4 - 10. 4 mg/dL [facility] Chloride [Moles/Vol] 102 mmol/L 97 - 11 1 mmol/L [facility] CO2 [Moles/Vol] 19 mmol/L Low 21 - 30 mmol/L [facility] Creatinine [Mass/Vol] 0.64 mg/dL Low 0.80 - 1.30 mg/dL [facility] GFR/1.73 sq M.predicted MDRD (S/P/Bld) [Vol rate/Area] 108 mL/min/{1.73_m2} - PINF [facility] Glucose [Mass/Vol] 115 mg/dL 80 - 116 mg/dL [facility] Interpretation and review of laboratory results Abnormal [facility] Potassium [Moles/Vol] 4.0 mmol/L 3.3 - 5.3 mmol/L [facility] Sodium [Moles/Vol] 132 mmol/L Low 135 - 148 mmol/L [facility] Urea nitrogen [Mass/Vol] 8 mg/dL 8 - 22 mg/dL [facility] Anion gap [Moles/Vol] 9 mmol/L Low 10 - 20 [facility] Calcium [Mass/Vol] 8.0 mg/dL Low 8.4 - 10. 4 mg/dL [facility] Chloride [Moles/Vol] 107 mmol/L 97 - 11 1 mmol/L [facility] CO2 [Moles/Vol] 22 mmol/L 21 - 30 mmol/L [facility] Creatinine [Mass/Vol] 0.70 mg/dL Low 0.80 - 1.30 mg/dL [facility] GFR/1.73 sq M.predicted MDRD (S/P/Bld) [Vol rate/Area] 105 mL/min/{1.73_m2} - PINF [facility] Glucose [Mass/Vol] 99 mg/dL 80 - 116 mg/dL [facility] Interpretation and review of laboratory results Abnormal [facility] Potassium [Moles/Vol] 4.2 mmol/L 3.3 - 5.3 mmol/L [facility] Sodium [Moles/Vol] 134 mmol/L Low 135 - 148 mmol/L [facility] Urea nitrogen [Mass/Vol] 8 mg/dL 8 - 22 mg/dL [facility] CBC WITH DIFFERENTIALon 10-31 Basophils (Bld) [#/Vol] 0.11 10*3/uL 0.00 - 0.20 K/uL [facility] Basophils/100 WBC (Bld) 1.1 % NINF - 1.9 % [facility] Eosinophils (Bld) [#/Vol] 0.29 10*3/uL 0.00 - 0.70 K/uL [facility] Eosinophils/100 WBC (Bld) 2.7 % 0.1 - 4.0 % [facility] Erythrocyte distribution width (RBC) [Ratio] 14.9 % High 11.5 - 14.5 % [facility] Hematocrit (Bld) [Volume fraction] 32.7 % Low 41.0 - 53.0 % [facility] Hemoglobin (Bld) [Mass/Vol] 11.1 g/dL Low 13.9 - 16.3 g/dL [facility] Interpretation and review of laboratory results Abnormal [facility] Lymphocytes (Bld) [#/Vol] 1.53 10*3/uL 1.00 - 4.80 K/uL [facility] Lymphocytes/100 WBC (Bld) 14.5 % Low 24.0 - 44.0 % [facility] MCH (RBC) [Entitic mass] 32.7 pg 26.0 - 34.0 pg [facility] MCHC (RBC) [Mass/Vol] 34.0 g/dL 32.0 - 35.9 g/dL [facility] MCV (RBC) [Entitic vol] 96 fL 80 - 100 fL [facility] Monocyte distribution width Auto (Bld) [Entitic vol] [facility] Monocytes (Bld) [#/Vol] 0.69 10*3/uL 0.20 - 1.00 K/uL [facility] Monocytes/100 WBC (Bld) 6.6 % 2.0 - 11.0 % [facility] Neutrophils (Bld) [#/Vol] 7.94 10*3/uL 1.50 - 8.00 K/uL [facility] Neutrophils/100 WBC (Bld) 75.2 % 31.0 - 76.0 % [facility] Platelet mean volume (Bld) [Entitic vol] 6.9 fL Low 7.5 - 11.2 fL [facility] Platelets (Bld) [#/Vol] 182 10*3/uL 150 - 400 K/uL [facility] RBC (Bld) [#/Vol] 3.39 10*6/uL Low [facility] WBC (Bld) [#/Vol] 10.6 10*3/uL 4.5 - 11.5 K/uL [facility] CBC panel Auto (Bld)on 11-21 Erythrocyte distribution width (RBC) [Ratio] 14.6 % High 11.5 - 14.5 % [facility] Hematocrit (Bld) [Volume fraction] 35.1 % Low 41.0 - 53.0 % [facility] Hemoglobin (Bld) [Mass/Vol] 11.8 g/dL Low 13.9 - 16.3 g/dL [facility] Interpretation and review of laboratory results Abnormal [facility] MCH (RBC) [Entitic mass] 32.5 pg 26.0 - 34.0 pg [facility] MCHC (RBC) [Mass/Vol] 33.5 g/dL 32.0 - 35.9 g/dL [facility] MCV (RBC) [Entitic vol] 97 fL 80 - 100 fL [facility] Platelet mean volume (Bld) [Entitic vol] 7.2 fL Low 7.5 - 11.2 fL [facility] Platelets (Bld) [#/Vol] 211 10*3/uL 150 - 400 K/uL [facility] RBC (Bld) [#/Vol] 3.62 10*6/uL Low [facility] WBC (Bld) [#/Vol] 10.4 10*3/uL 4.5 - 11.5 K/uL [facility] GLUCOSE, FINGERSTICK-IN OFFI CEon 11-21-2022 Glucose [Mass/Vol] 110 mg/dL 80 - 116 mg/dL [facility] Interpretation and review of laboratory results Normal [facility] MAGNESIUMon 11-21-2022 Magnesium [Mass/Vol] 2.0 mg/dL 1.6 - 2 .8 mg/dL [facility] No Panel Informationon 11-21 Interpretation and review of laboratory results Normal [facility] Interpretation and review of laboratory results Normal [facility] OCCULT BLOOD, STOOLon 2022 Collection Date 11/21/22 [facility] Hemoglobin.gastrointes tinal spec 1 Ql [facility]l) [facility] PARTIAL THROMBOPLASTIN TIMEo n 11-21-2022 aPTT Coag (Bld) [Time] 29 s [facility] PHOSPHORUSon 11-21-2022 Phosphate [Mass/Vol] 3.1 mg/dL 2.5 - 4 .8 mg/dL [facility] PROTHROMBIN TIME AND INRon 0 11-21-2022 INR Coag (PPP) [Relative time] 0.99 {INR} 0.90 - 1.10 [facility] PT Coag (PPP) [Time] 11.1 s [facility] TRIGLYCERIDESon 11-21-2022 Interpretation and review of laboratory results Abnormal [facility] Triglyceride [Mass/Vol] 415 mg/dL High NINF - 151 mg/dL [facility] US Abdomen RUQon 11-21-2022 [facility] Study observation (narrative) [facility] XR Finger - left [employer] RADIOLOGY [facility] Radiology Study observation (narrative) [facility] XR Finger - left ViewsOrdere d By: Tj Oliver on 11-21-2022 [facility] Work Phone: Basic metabolic 2000 panelon 11-20-2022 Anion gap [Moles/Vol] 9 mmol/L Low 10 - 20 [facility] Calcium [Mass/Vol] 8.2 mg/dL Low 8.4 - 10. 4 mg/dL [facility] Chloride [Moles/Vol] 107 mmol/L 97 - 11 1 mmol/L [facility] CO2 [Moles/Vol] 22 mmol/L 21 - 30 mmol/L [facility] Creatinine [Mass/Vol] 0.66 mg/dL Low 0.80 - 1.30 mg/dL [facility] GFR/1.73 sq M.predicted MDRD (S/P/Bld) [Vol rate/Area] 107 mL/min/{1.73_m2} - PINF [facility] Glucose [Mass/Vol] 72 mg/dL Low 80 - 116 mg/dL [facility] Interpretation and review of laboratory results Abnormal [facility] Potassium [Moles/Vol] 3.9 mmol/L 3.3 - 5.3 mmol/L [facility] Sodium [Moles/Vol] 134 mmol/L Low 135 - 148 mmol/L [facility] Urea nitrogen [Mass/Vol] 4 mg/dL Low 8 - 22 mg/dL [facility] Basic metabolic 1999 panelOr dered By: León Broussard on 11-20-2022 Anion gap [Moles/Vol] 10 mmol/L 10 - 20 [facility] Calcium [Mass/Vol] 8.3 mg/dL Low 8.4 - 10. 4 mg/dL [facility] Chloride [Moles/Vol] 108 mmol/L 97 - 11 1 mmol/L [facility] CO2 [Moles/Vol] 21 mmol/L 21 - 30 mmol/L [facility] Creatinine [Mass/Vol] 0.63 mg/dL Low 0.80 - 1.30 mg/dL [facility] GFR/1.73 sq M.predicted MDRD (S/P/Bld) [Vol rate/Area] 109 mL/min/{1.73_m2} - PINF [facility] Glucose [Mass/Vol] 80 mg/dL 80 - 116 mg/dL [facility] Interpretation and review of laboratory results Abnormal [facility] Potassium [Moles/Vol] 4.0 mmol/L 3.3 - 5.3 mmol/L [facility] Sodium [Moles/Vol] 135 mmol/L 135 - 148 mmol/L [facility] Urea nitrogen [Mass/Vol] 4 mg/dL Low 8 - 22 mg/dL [facility] Basic metabolic 2000 panelOr dered By: Mathew Pro on 11-20-2022 Anion gap [Moles/Vol] 11 mmol/L 10 - 20 [facility] Calcium [Mass/Vol] 8.4 mg/dL 8.4 - 10. 4 mg/dL [facility] Chloride [Moles/Vol] 107 mmol/L 97 - 11 1 mmol/L [facility] CO2 [Moles/Vol] 22 mmol/L 21 - 30 mmol/L [facility] Creatinine [Mass/Vol] 0.65 mg/dL Low 0.80 - 1.30 mg/dL [facility] GFR/1.73 sq M.predicted MDRD (S/P/Bld) [Vol rate/Area] 108 mL/min/{1.73_m2} - PINF [facility] Glucose [Mass/Vol] 65 mg/dL Low 80 - 116 mg/dL [facility] Interpretation and review of laboratory results Abnormal [facility] Potassium [Moles/Vol] 3.6 mmol/L 3.3 - 5.3 mmol/L [facility] Sodium [Moles/Vol] 136 mmol/L 135 - 148 mmol/L [facility] Urea nitrogen [Mass/Vol] 5 mg/dL Low 8 - 22 mg/dL [facility] CBC WITH DIFFERENTIALon 10-31 Basophils (Bld) [#/Vol] 0.08 10*3/uL 0.00 - 0.20 K/uL [facility] Basophils/100 WBC (Bld) 0.6 % NINF - 1.9 % [facility] Eosinophils (Bld) [#/Vol] 0.04 10*3/uL 0.00 - 0.70 K/uL [facility] Eosinophils/100 WBC (Bld) 0.3 % 0.1 - 4.0 % [facility] Erythrocyte distribution width (RBC) [Ratio] 14.8 % High 11.5 - 14.5 % [facility] Hematocrit (Bld) [Volume fraction] 34.0 % Low 41.0 - 53.0 % [facility] Hemoglobin (Bld) [Mass/Vol] 11.5 g/dL Low 13.9 - 16.3 g/dL [facility] Interpretation and review of laboratory results Abnormal [facility] Lymphocytes (Bld) [#/Vol] 1.04 10*3/uL 1.00 - 4.80 K/uL [facility] Lymphocytes/100 WBC (Bld) 7.9 % Low 24.0 - 44.0 % [facility] MCH (RBC) [Entitic mass] 32.1 pg 26.0 - 34.0 pg [facility] MCHC (RBC) [Mass/Vol] 33.7 g/dL 32.0 - 35.9 g/dL [facility] MCV (RBC) [Entitic vol] 95 fL 80 - 100 fL [facility] Monocyte distribution width Auto (Bld) [Entitic vol] [facility] Monocytes (Bld) [#/Vol] 0.63 10*3/uL 0.20 - 1.00 K/uL [facility] Monocytes/100 WBC (Bld) 4.8 % 2.0 - 11.0 % [facility] Neutrophils (Bld) [#/Vol] 11.36 10*3/uL High 1.50 - 8.00 K/uL [facility] Neutrophils/100 WBC (Bld) 86.4 % High 31.0 - 76.0 % [facility] Platelet mean volume (Bld) [Entitic vol] 6.8 fL Low 7.5 - 11.2 fL [facility] Platelets (Bld) [#/Vol] 191 10*3/uL 150 - 400 K/uL [facility] RBC (Bld) [#/Vol] 3.57 10*6/uL Low [facility] WBC (Bld) [#/Vol] 13.2 10*3/uL High 4.5 - 11.5 K/uL [facility] GLUCOSE, FINGERSTICK-IN OFFI CEon 11-20-2022 Glucose [Mass/Vol] 119 mg/dL High 80 - 116 mg/dL [facility] Interpretation and review of laboratory results Abnormal [facility] Glucose [Mass/Vol] 85 mg/dL 80 - 116 mg/dL [facility] Interpretation and review of laboratory results [facility] Glucose [Mass/Vol] 98 mg/dL 80 - 116 mg/dL [facility] Interpretation and review of laboratory results [facility] Glucose [Mass/Vol] 113 mg/dL 80 - 116 mg/dL [facility] Interpretation and review of laboratory results Normal [facility] Glucose [Mass/Vol] 83 mg/dL 80 - 116 mg/dL [facility] Interpretation and review of laboratory results Normal [facility] Glucose [Mass/Vol] 90 mg/dL 80 - 116 mg/dL [facility] Interpretation and review of laboratory results Normal [facility] Glucose [Mass/Vol] 108 mg/dL 80 - 116 mg/dL [facility] Interpretation and review of laboratory results [facility] Glucose [Mass/Vol] 94 mg/dL 80 - 116 mg/dL [facility] Interpretation and review of laboratory results [facility] Glucose [Mass/Vol] 93 mg/dL 80 - 116 mg/dL [facility] Interpretation and review of laboratory results [facility] Glucose [Mass/Vol] 106 mg/dL 80 - 116 mg/dL [facility] Interpretation and review of laboratory results [facility] Glucose [Mass/Vol] 111 mg/dL 80 - 116 mg/dL [facility] Interpretation and review of laboratory results [facility] Glucose [Mass/Vol] 134 mg/dL High 80 - 116 mg/dL [facility] Interpretation and review of laboratory results Abnormal [facility] Glucose [Mass/Vol] 103 mg/dL 80 - 116 mg/dL [facility] Interpretation and review of laboratory results [facility] Glucose [Mass/Vol] 75 mg/dL Low 80 - 116 mg/dL [facility] Interpretation and review of laboratory results Abnormal [facility] Glucose [Mass/Vol] 78 mg/dL Low 80 - 116 mg/dL [facility] Interpretation and review of laboratory results Abnormal [facility] HELICOBACTER PYLORI ANTIGEN, STOOLOrdered By: Ivet Garcia on 11-20-2022 H. Pylori Ag Not detected Not Detected [facility] Interpretation and review of laboratory results Normal [facility] HEPATIC FUNCTION PANELon Albumin [Mass/Vol] 3.1 g/dL Low 3.4 - 5.1 g/dL [facility] ALP [Catalytic activity/Vol] 117 U/L [facility] ALT [Catalytic activity/Vol] 27 U/L [facility] AST [Catalytic activity/Vol] 49 U/L High [facility] Bilirubin [Mass/Vol] 0.8 mg/dL 0.1 - 1 .5 mg/dL [facility] Bilirubin.direct [Mass/Vol] 0.15 mg/dL 0.10 - 0.30 mg/dL [facility] Interpretation and review of laboratory results Abnormal [facility] Protein [Mass/Vol] 5.3 g/dL Low 5.7 - 8.1 g/dL [facility] LIPASEon 11-20-2022 Interpretation and review of laboratory results Normal [facility] Lipase [Catalytic activity/Vol] 29 U/L NINF [facility] MAGNESIUMon 11-20-2022 Interpretation and review of laboratory results Normal [facility] Magnesium [Mass/Vol] 1.9 mg/dL 1.6 - 2 .8 mg/dL [facility] No Panel Informationon 11-20 [facility] PHOS[facility] 11-20-2022 Interpretation and review of laboratory results Abnormal [facility] Phosphate [Mass/Vol] 2.2 mg/dL Low 2.5 - 4 .8 mg/dL [facility] TRIGLYCERIDESon 11-20-2022 Interpretation and review of laboratory results Abnormal [facility] Triglyceride [Mass/Vol] 473 mg/dL High NINF - 151 mg/dL [facility] Interpretation and review of laboratory results Abnormal [facility] Triglyceride [Mass/Vol] 552 mg/dL High NINF - 151 mg/dL [facility] URINALYSIS WITH REFLEX CULTU RE PERFORMABLEon 11-20-2022 Appearance (U) Clear Clear [facility] Bilirubin Ql (U) Negative Negative [facility] Color (U) Light Yellow Colorless [facility] Glucose Auto test strip (U) [Mass/Vol] Negative Negative mg/dL [facility] Hemoglobin Ql (U) Negative Negative [facility] Ketones Ql (U) Negative Negative mg/dL [facility] Leukocyte esterase Test strip Ql (U) Negative Negative [facility] Nitrite Ql (U) Negative Negative [facility] pH (U) 7.0 [pH] 5.0 - 8.0 [facility] Protein (U) [Mass/Vol] Negative Negat guerline mg/dL [facility] Specific gravity (U) [Rel density] 1.008 NINF - 1.030 [facility] Urobilinogen Qn (U) Negative Negative mg/dL [facility] XR Abdomen APon 11-20-[address] [address] Study observation (narrative) [facility] XR Abdomen APOrdered By: Latoya Fairbanks on 11-20-2022 [facility] Work Phone: Basic metabolic 1999 panelOr dered By: Siria Blount on 11-19-2022 Anion gap [Moles/Vol] 12 mmol/L 10 - 20 [facility] Calcium [Mass/Vol] 8.3 mg/dL Low 8.4 - 10. 4 mg/dL [facility] Chloride [Moles/Vol] 105 mmol/L 97 - 11 1 mmol/L [facility] CO2 [Moles/Vol] 22 mmol/L 21 - 30 mmol/L [facility] Creatinine [Mass/Vol] 0.68 mg/dL Low 0.80 - 1.30 mg/dL [facility] GFR/1.73 sq M.predicted MDRD (S/P/Bld) [Vol rate/Area] 106 mL/min/{1.73_m2} - PINF [facility] Glucose [Mass/Vol] 64 mg/dL Low 80 - 116 mg/dL [facility] Interpretation and review of laboratory results Abnormal [facility] Potassium [Moles/Vol] 5.5 mmol/L High 3.3 - 5.3 mmol/L [facility] Sodium [Moles/Vol] 133 mmol/L Low 135 - 148 mmol/L [facility] Urea nitrogen [Mass/Vol] 6 mg/dL Low 8 - 22 mg/dL [facility] Basic metabolic 2000 panelon 11-19-2022 Anion gap [Moles/Vol] 12 mmol/L 10 - 20 [facility] Calcium [Mass/Vol] 8.3 mg/dL Low 8.4 - 10. 4 mg/dL [facility] Chloride [Moles/Vol] 104 mmol/L 97 - 11 1 mmol/L [facility] CO2 [Moles/Vol] 24 mmol/L 21 - 30 mmol/L [facility] Creatinine [Mass/Vol] 0.62 mg/dL Low 0.80 - 1.30 mg/dL [facility] GFR/1.73 sq M.predicted MDRD (S/P/Bld) [Vol rate/Area] 109 mL/min/{1.73_m2} - PINF [facility] Glucose [Mass/Vol] 80 mg/dL 80 - 116 mg/dL [facility] Potassium [Moles/Vol] 3.6 mmol/L 3.3 - 5.3 mmol/L [facility] Sodium [Moles/Vol] 136 mmol/L 135 - 148 mmol/L [facility] Urea nitrogen [Mass/Vol] 6 mg/dL Low 8 - 22 mg/dL [facility] Anion gap [Moles/Vol] 13 mmol/L 10 - 20 [facility] Calcium [Mass/Vol] 8.5 mg/dL 8.4 - 10. 4 mg/dL [facility] Chloride [Moles/Vol] 100 mmol/L 97 - 11 1 mmol/L [facility] CO2 [Moles/Vol] 21 mmol/L 21 - 30 mmol/L [facility] Creatinine [Mass/Vol] 0.58 mg/dL Low 0.80 - 1.30 mg/dL [facility] GFR/1.73 sq M.predicted MDRD (S/P/Bld) [Vol rate/Area] 112 mL/min/{1.73_m2} - PINF [facility] Glucose [Mass/Vol] 75 mg/dL Low 80 - 116 mg/dL [facility] Interpretation and review of laboratory results Abnormal [facility] Potassium [Moles/Vol] 4.2 mmol/L 3.3 - 5.3 mmol/L [facility] Sodium [Moles/Vol] 130 mmol/L Low 135 - 148 mmol/L [facility] Urea nitrogen [Mass/Vol] 7 mg/dL Low 8 - 22 mg/dL [facility] Anion gap [Moles/Vol] 16 mmol/L 10 - 20 [facility] Calcium [Mass/Vol] 8.7 mg/dL 8.4 - 10. 4 mg/dL [facility] Chloride [Moles/Vol] 99 mmol/L 97 - 11 1 mmol/L [facility] CO2 [Moles/Vol] 19 mmol/L Low 21 - 30 mmol/L [facility] Creatinine [Mass/Vol] 0.59 mg/dL Low 0.80 - 1.30 mg/dL [facility] GFR/1.73 sq M.predicted MDRD (S/P/Bld) [Vol rate/Area] 111 mL/min/{1.73_m2} - PINF [facility] Glucose [Mass/Vol] 131 mg/dL High 80 - 116 mg/dL [facility] Interpretation and review of laboratory results Abnormal [facility] Potassium [Moles/Vol] 3.5 mmol/L 3.3 - 5.3 mmol/L [facility] Sodium [Moles/Vol] 130 mmol/L Low 135 - 148 mmol/L [facility] Urea nitrogen [Mass/Vol] 6 mg/dL Low 8 - 22 mg/dL [facility] CBC WITH DIFFERENTIALon -2 Basophils (Bld) [#/Vol] 0.10 10*3/uL 0.00 - 0.20 K/uL [facility] Basophils/100 WBC (Bld) 0.6 % NINF - 1.9 % [facility] Eosinophils (Bld) [#/Vol] 0.02 10*3/uL 0.00 - 0.70 K/uL [facility] Eosinophils/100 WBC (Bld) 0.1 % 0.1 - 4.0 % [facility] Erythrocyte distribution width (RBC) [Ratio] 14.4 % 11.5 - 14.5 % [facility] Hematocrit (Bld) [Volume fraction] 38.5 % Low 41.0 - 53.0 % [facility] Hemoglobin (Bld) [Mass/Vol] 13.1 g/dL Low 13.9 - 16.3 g/dL [facility] Interpretation and review of laboratory results Abnormal [facility] Lymphocytes (Bld) [#/Vol] 1.73 10*3/uL 1.00 - 4.80 K/uL [facility] Lymphocytes/100 WBC (Bld) 10.6 % Low 24.0 - 44.0 % [facility] MCH (RBC) [Entitic mass] 31.9 pg 26.0 - 34.0 pg [facility] MCHC (RBC) [Mass/Vol] 34.0 g/dL 32.0 - 35.9 g/dL [facility] MCV (RBC) [Entitic vol] 94 fL 80 - 100 fL [facility] Monocyte distribution width Auto (Bld) [Entitic vol] [facility] Monocytes (Bld) [#/Vol] 1.04 10*3/uL High 0.20 - 1.00 K/uL [facility] Monocytes/100 WBC (Bld) 6.4 % 2.0 - 11.0 % [facility] Neutrophils (Bld) [#/Vol] 13.44 10*3/uL High 1.50 - 8.00 K/uL [facility] Neutrophils/100 WBC (Bld) 82.3 % High 31.0 - 76.0 % [facility] Platelet mean volume (Bld) [Entitic vol] 6.7 fL Low 7.5 - 11.[address] [facility] Platelets (Bld) [#/Vol] 213 10*3/uL 150 - 400 K/uL [facility] RBC (Bld) [#/Vol] 4.11 10*6/uL Low [facility] WBC (Bld) [#/Vol] 16.3 10*3/uL High 4.5 - 11.5 K/uL [facility] CT Chest and Abdomen and Pel vis W contrast Daysi 11-19-2022 CT DLP 1362.2 (mGy.cm) [facility] CT Series Entire body [facility] CTDI VOL 18.2 (mGy) [facility] PHANTOM TYPE IEC Body Dosimetry Phantom [facility] Thoracic and lumbar spine WO contraston 11-19-2022 RADIOLOGY [facility] CT Thoracic and lumbar spine WO contrastOrdered By: Karen Hoffmann on 11-19-2022 [facility] Work Phone: EKG 12 LEAD - PERFORMon 10-[address] [facility] P wave [facility] axis 43 degrees [facility] P-R Interval 114 ms [facility] Q-T interval 340 ms [facility] Q-T interval corrected [address] [facility] [address] QRS axis 85 degrees [facility] QRS duration 88 ms [facility] T wave axis 40 degrees [facility] FERRITINon 11-19-2022 Ferritin [Mass/Vol] 340.9 ng/mL High 11.5 - 300.0 ng/mL [facility] Interpretation and review of laboratory results [facility] GLUCOSE, FINGERSTICK-IN KURT Amador 11-19-2022 Glucose [Mass/Vol] 74 mg/dL Low 80 - 116 mg/dL [facility] Interpretation and review of laboratory results Abnormal [facility] Glucose [Mass/Vol] 92 mg/dL 80 - 116 mg/dL [facility] Interpretation and review of laboratory results Normal [facility] Glucose [Mass/Vol] 71 mg/dL Low 80 - 116 mg/dL [facility] Interpretation and review of laboratory results Abnormal [facility] Glucose [Mass/Vol] 94 mg/dL 80 - 116 mg/dL [facility] Interpretation and review of laboratory results [facility] Glucose [Mass/Vol] 99 mg/dL 80 - 116 mg/dL [facility] Interpretation and review of laboratory results Normal [facility] Glucose [Mass/Vol] 105 mg/dL 80 - 116 mg/dL [facility] Interpretation and review of laboratory results Normal [facility] Glucose [Mass/Vol] 125 mg/dL High 80 - 116 mg/dL [facility] Interpretation and review of laboratory results Abnormal [facility] Glucose [Mass/Vol] 83 mg/dL 80 - 116 mg/dL [facility] Interpretation and review of laboratory results Normal [facility] Glucose [Mass/Vol] 83 mg/dL 80 - 116 mg/dL [facility] Interpretation and review of laboratory results Normal [facility] Glucose [Mass/Vol] 97 mg/dL 80 - 116 mg/dL [facility] Interpretation and review of laboratory results [facility] Glucose [Mass/Vol] 70 mg/dL Low 80 - 116 mg/dL [facility] Interpretation and review of laboratory results Abnormal [facility] Glucose [Mass/Vol] 101 mg/dL 80 - 116 mg/dL [facility] Interpretation and review of laboratory results [facility] Glucose [Mass/Vol] 70 mg/dL Low 80 - 116 mg/dL [facility] Interpretation and review of laboratory results Abnormal [facility] Glucose [Mass/Vol] 77 mg/dL Low 80 - 116 mg/dL [facility] Interpretation and review of laboratory results Abnormal [facility] Glucose [Mass/Vol] 210 mg/dL High 80 - 116 mg/dL [facility] Interpretation and review of laboratory results Abnormal [facility] Glucose [Mass/Vol] 96 mg/dL 80 - 116 mg/dL [facility] Interpretation and review of laboratory results Normal [facility] Glucose [Mass/Vol] 110 mg/dL 80 - 116 mg/dL [facility] Interpretation and review of laboratory results Normal [facility] Glucose [Mass/Vol] 133 mg/dL High 80 - 116 mg/dL [facility] Interpretation and review of laboratory results Abnormal [facility] Glucose [Mass/Vol] 121 mg/dL High 80 - 116 mg/dL [facility] Interpretation and review of laboratory results Abnormal [facility] IRON AND TIBCon 11-19-2022 Interpretation and review of laboratory results Abnormal [facility] Iron [Mass/Vol] 35 ug/dL Low 45 - 160 ug/dL [facility] Iron binding capacity [Mass/Vol] 280 ug/mL 250 - 410 ug/mL [facility] Iron saturation [Mass fraction] 13 % Low 20 - 55 % [facility] Transferrin [Mass/Vol] 200 mg/dL Low 210 - 375 mg/dL [facility] LACTIC ACIDon 11-19-2022 Interpretation and review of laboratory results Normal [facility] Lactate [Moles/Vol] 1.7 mmol/L 0.5 - 2. 0 mmol/L [facility] LDL CHOLESTEROL, DIRECTon Cholesterol in LDL [Mass/Vol] 52 mg/dL NINF - 99 mg/dL [facility] Interpretation and review of laboratory results Normal [facility] Lipid 1996 panelon Cholesterol [Mass/Vol] 334 mg/dL High NINF - 200 mg/dL [facility] Cholesterol in HDL [Mass/Vol] 33 mg/dL Low 44 - PINF mg/dL [facility] Cholesterol non HDL [Mass/Vol] 301 mg/dL High NINF - 130 mg/dL [facility] Cholesterol.total/Chol esterol in HDL [Mass ratio] 10.12 {ratio} High NINF - 5.00 [facility] Triglyceride [Mass/Vol] 1675 mg/dL High NINF - 151 mg/dL [facility] MAGNESIUMon 11-19-2022 Interpretation and review of laboratory results Normal [facility] Magnesium [Mass/Vol] 2.1 mg/dL 1.6 - 2 .8 mg/dL [facility] No Panel Informationon 11-19 Interpretation and review of laboratory results Abnormal [facility] Interpretation and review of laboratory results Abnormal [facility] PHOSPHORUSon 11-19-2022 Phosphate [Mass/Vol] 1.8 mg/dL Low 2.5 - 4 .8 mg/dL [facility] TOXICOLOGY SCREEN, UNCONFIRM EDon 11-19-2022 Amphetamines Ql (U) Negative Negative [facility] Barbiturates Screen Ql (U) Negative Negative [facility] Benzodiazepines Ql (U) Positive Abnormal [facility] Benzoylecgonine Screen Ql (U) Negative Negative [facility] Buprenorphine+Norbupre norphine Screen Ql (U) Negative [facility] Ethanol Screen Ql (U) Negative [facility] fentaNYL Screen Ql (U) Negative Negat guerline ng/mL [facility] HYDROcodone Screen Ql (U) Positive Abnormal Negative [facility] Interpretation and review of laboratory results Abnormal [facility] Methadone Screen Ql (U) Negative Negative [facility] Opiates Ql (U) Positive Abnormal Negative [facility] oxyCODONE Ql (U) Positive [facility] Phencyclidine Ql (U) Negative Negative [facility] Tetrahydrocannabinol Screen Ql (U) Negative [facility] TRIGLYCERIDESon 11-19-2022 Triglyceride [Mass/Vol] 978 mg/dL High NINF - 151 mg/dL [facility] URINALYSIS WITH REFLEX CULTU RE PERFORMABLEOrdered By: Mckenna Panda on 11-19-2022 Appearance (U) Clear Clear [facility] Bilirubin Ql (U) Negative Negative [facility] Color (U) Light Yellow Colorless [facility] Epithelial cells.squamous LM.HPF (Urine sed) [#/Area] 0-2 [facility] Glucose Auto test strip (U) [Mass/Vol] Negative Negative mg/dL [facility] Hemoglobin Ql (U) Small Abnormal Negative [facility] Interpretation and review of laboratory results Abnormal [facility] Ketones Ql (U) Trace Abnormal Negative mg/dL [facility] Leukocyte esterase Test strip Ql (U) Negative Negative [facility] Mucus Ql (Urine sed) Present [facility] Nitrite Ql (U) Negative Negative [facility] pH (U) 6.5 [pH] 5.0 - 8.0 [facility] Protein (U) [Mass/Vol] 10 mg/dL [facility] Specific gravity (U) [Rel density] High NINF - 1.030 [facility] Urobilinogen Qn (U) Negative Negative mg/dL [facility] WBC (U) [#/Vol] 3-5 Abnormal [facility] WBC LM.HPF (Urine sed) [#/Area] 0-2 [facility] XR Finger - left [facility] RADIOLOGY [facility] Amphetamine Screen Ql (U)Ord ered By: Chapincito Toure on 11-18-2022 Amphetamines Ql (U) Negative Negative [facility] Amylaseon 11-18-2022 Amylase [Catalytic activity/Vol] 36 U/L Normal [facility] Comment on above: Performed By: #### L IPASE, ETOH, GLU, BUN, CREAT, CK, CBC, VALERY, AST, LYTES ####[facility] [id number] [place] [address] [facility] Amylase [Enzymatic activity/ volume] in Serum or PlasmaOrdered By: Chapincito Toure on 11-18-2022 Amylase [Catalytic activity/Vol] 36 U/L 103 [facility] Aspartate Amino Transferaseo n 11-18-2022 Aspartate Amino Transferase Normal [facility] Comment on above: Result Comment: Spec imen hemolyzed, redraw requested Performed By: #### L IPASE, ETOH, GLU, BUN, CREAT, CK, CBC, VALERY, AST, LYTES ####[facility] [id number] [place] [address] [facility] Aspartate aminotransferase [ Enzymatic activity/volume] in Serum or PlasmaOrdered By: Chapincito Toure on 11-18-2022 AST [Catalytic activity/Vol] 73 U/L 13-39 [facility] Barbiturates [Presence] in U rine by Screen methodOrdered By: Chapincito Toure on 11-18-2022 Barbiturates Screen Ql (U) Negative Negative [facility] Basic metabolic 2000 panelon 11-18-2022 Anion gap [Moles/Vol] 19 mmol/L 10 - 20 [facility] Calcium [Mass/Vol] 8.9 mg/dL 8.4 - 10. 4 mg/dL [facility] Chloride [Moles/Vol] 97 mmol/L 97 - 11 1 mmol/L [facility] CO2 [Moles/Vol] 19 mmol/L Low 21 - 30 mmol/L [facility] Creatinine [Mass/Vol] 0.67 mg/dL Low 0.80 - 1.30 mg/dL [facility] GFR/1.73 sq M.predicted MDRD (S/P/Bld) [Vol rate/Area] 107 mL/min/{1.73_m2} - PINF [facility] Glucose [Mass/Vol] 108 mg/dL 80 - 116 mg/dL [facility] Potassium [Moles/Vol] 3.5 mmol/L 3.3 - 5.3 mmol/L [facility] Sodium [Moles/Vol] 131 mmol/L Low 135 - 148 mmol/L [facility] Urea nitrogen [Mass/Vol] 8 mg/dL 8 - 22 mg/dL [facility] Basophils Auto (Bld) [#/Vol] Ordered By: Chapincito Toure on 11-18-2022 Basophils (Bld) [#/Vol] 0.1 10*3/uL 0.0-0.2 [facility] Basophils/100 WBC Auto (Bld) Ordered By: Chapincito Toure on 11-18-2022 Basophils/100 WBC (Bld) 0.5 % . [facility] Benzodiazepines Screen Ql (U )Ordered By: Chapincito Toure on 11-18-2022 Benzodiazepines Ql (U) Negative Negative [facility] Benzoylecgonine [Presence] i n Urine by Screen methodOrdered By: Chapincito Toure on 11-18-2022 Benzoylecgonine Screen Ql (U) Negative Negative [facility] Blood Urea Nitrogenon 2022 Urea nitrogen [Mass/Vol] 10 mg/dL Normal 7-25 [facility] Comment on above: Performed By: #### L IPASE, ETOH, GLU, BUN, CREAT, CK, CBC, VALERY, AST, LYTES ####[facility] [id number] [place] [address] [facility] CBC WITH DIFFERENTIALon 10-31 Basophils (Bld) [#/Vol] 0.06 10*3/uL 0.00 - 0.20 K/uL [facility] Basophils/100 WBC (Bld) 0.3 % NINF - 1.9 % [facility] Eosinophils (Bld) [#/Vol] 0.04 10*3/uL 0.00 - 0.70 K/uL [facility] Eosinophils/100 WBC (Bld) 0.2 % 0.1 - 4.0 % [facility] Erythrocyte distribution width (RBC) [Ratio] 14.4 % 11.5 - 14.5 % [facility] Hematocrit (Bld) [Volume fraction] 40.6 % Low 41.0 - 53.0 % [facility] Hemoglobin (Bld) [Mass/Vol] 13.8 g/dL Low 13.9 - 16.3 g/dL [facility] Interpretation and review of laboratory results Abnormal [facility] Lymphocytes (Bld) [#/Vol] 2.40 10*3/uL 1.00 - 4.80 K/uL [facility] Lymphocytes/100 WBC (Bld) 12.8 % Low 24.0 - 44.0 % [facility] MCH (RBC) [Entitic mass] 32.0 pg 26.0 - 34.0 pg [facility] MCHC (RBC) [Mass/Vol] 33.9 g/dL 32.0 - 35.9 g/dL [facility] MCV (RBC) [Entitic vol] 94 fL 80 - 100 fL [facility] Monocyte distribution width Auto (Bld) [Entitic vol] [facility] Monocytes (Bld) [#/Vol] 1.15 10*3/uL High 0.20 - 1.00 K/uL [facility] Monocytes/100 WBC (Bld) 6.1 % 2.0 - 11.0 % [facility] Neutrophils (Bld) [#/Vol] 15.11 10*3/uL High 1.50 - 8.00 K/uL [facility] Neutrophils/100 WBC (Bld) 80.6 % High 31.0 - 76.0 % [facility] Platelet mean volume (Bld) [Entitic vol] 7.1 fL Low 7.5 - 11.2 fL [facility] Platelets (Bld) [#/Vol] 262 10*3/uL 150 - 400 K/uL [facility] RBC (Bld) [#/Vol] 4.31 10*6/uL Low [facility] WBC (Bld) [#/Vol] 18.7 10*3/uL High 4.5 - 11.5 K/uL [facility] abdomen pelvis w conon CT abdomen pelvis w [facility] [place] [address] [place] [address] CT Scan Report Signed Patient: José Rojas MR#: [id number] : 1960 Acct:[id number] Age/Sex: 62 / M ADM Date: 11/18/22 Loc: ER Room: Type: [facility] ER Attending Dr: Copies to: Chapincito Toure DO Ordering Provider: Chapincito Toure DO Date of Service: 11/18/22 CT/CT chest w con: f ([id number]) CT/CT abdomen pelvis w con: f CT CHEST, ABDOMEN AND PELVIS WITH INTRAVENOUS CONTRAST: CLINICAL HISTORY: Patient fell out of a chair yesterday. Back pain. COMPARISON: 10/15/2018 TECHNIQUE: Spiral images were obtained through the chest, abdomen and pelvis following intravenous administration of 90 mL of Isovue-300. Images of the chest were reviewed using both narrow and wide window settings. This CT exam was performed using one or more following dose reduction techniques: Automated exposure control, adjustment of the mA and/or kV according to patient size, or use of iterative reconstruction technique. The heart is not enlarged. There is no pericardial effusion. Coronary artery calcification and/or stents are present No aortic aneurysm or dissection is seen. There is no mediastinal or hilar lymphadenopathy. There is subtle groundglass density at the right apex. Linear atelectasis and/or scarring is present. There is no additional consolidation, pleural effusion or pneumothorax. A tiny stable irregular asymmetry is again visualized at the right middle lobe. No acute displaced rib fractures are visualized. There is slight dextroscoliotic curvature and endplate spurring at the spine. There are no thoracic compression fractures or displacement. Fatty infiltration of the liver is present. A tiny left hepatic cyst is seen. No calcified gallstones are noted. There is no evidence of hepatic or splenic laceration. There is fibrofatty stranding near the tail the pancreas with fluid at the left paracolic gutter. Acute pancreatitis is possible. No adrenal abnormalities are seen. There is bilateral perinephric fibrofatty stranding. The nephrograms are symmetric. No hydronephrosis is noted. Renal cysts are present. There is minor plaque at the aorta. There are few tiny lymph nodes. There is fluid within the stomach. There are normal caliber small bowel loops. There is no significant colonic stool. Dextroscoliotic curvature and endplate spurring are seen at the lumbar spine. There are no acute compression fractures or displacement. Images through the pelvis are slightly limited by streak artifact from bilateral hip prostheses. There are normal caliber small bowel loops. The appendix is not identified. There is moderate rectal stool. No diverticular disease is seen. The urinary bladder and prostate gland are not well visualized for assessment. A tiny umbilical hernia is present containing fat. There are mildly patulous inguinal rings containing fat. No ascites is noted. There is fragmentation at the left anterior superior iliac spine that was not seen previously. The hip prosthesis on that side is however new. There is degenerative change at the SI joints. No definite acute pelvic fractures are noted. CT/CT chest w con IMPRESSION: MINOR BILATERAL PARENCHYMAL CHANGES FATTY LIVER. HEPATIC AND RENAL CYSTS. FINDINGS SUSPICIOUS FOR PANCREATITIS. CORRELATION WITH AMYLASE AND LIPASE IS RECOMMENDED. NO BOWEL OR URINARY TRACT OBSTRUCTION. NO ACUTE INTRATHORACIC, ABDOMINAL OR PELVIC TRAUMA. Impression dictated by: Mima Bundy M.D.11/18/2022 5:57 PM Dictation Location: [place] [address] Transcribed By: [facility] 11/18/221756 Dictated By: Mima Bundy MD 11/18/22 174 Signed By: 11/18/22 [address] [facility] [address] cervical spine wo [place] [address] 11-18-2022 CT cervical spine wo [facility] [place] [id number] CT Scan Report Signed Patient: José Rojas MR#: [id number] : 1960 Acct:[id number] Age/Sex: 62 / M ADM Date: 11/18/22 Loc: ER Room: Type: PRE ER Attending Dr: Copies to: Chapincito Toure DO Ordering Provider: Chapincito Toure DO Date of Service: 11/18/22 CT/CT cervical spine wo con: f ([id number]) CT/CT head/brain wo con: f CLINICAL DATA: Patient fell out of a chair yesterday. Blood thinners. CT BRAIN WITHOUT CONTRAST: COMPARISON: 10/15/2018 TECHNIQUE: Contiguous axial unenhanced images were obtained through the brain. This CT exam was performed using one or more following dose reduction techniques: Automated exposure control, adjustment of the mA and/or kV according to patient size, or use of iterative reconstruction technique. FINDINGS: There is mild cortical atrophy. The ventricles are within normal limits for size and position. Minimal microvascular changes are noted. There are no additional areas of abnormal attenuation. There is no hemorrhage, mass effect or extra-axial collections. The calvarium is intact. The imaged paranasal sinuses and mastoid air cells are clear. CT/CT head/brain wo con IMPRESSION: AGE-RELATED CHANGES. NO ACUTE INTRACRANIAL TRAUMA. CT CERVICAL SPINE WITHOUT CONTRAST WITH 3D RECONSTRUCTIONS: COMPARISON: 10/15/2018 TECHNIQUE: Spiral axial unenhanced images were obtained through the cervical spine. Sagittal, coronal and 3D volume-rendered reconstructions were also reviewed. This CT exam was performed using one or more following dose reduction techniques: Automated exposure control, adjustment of the mA and/or kV according to patient size, or use of iterative reconstruction technique. FINDINGS: There is reversal of the normal cervical lordosis. Alignment is maintained in the sagittal plane. No fractures are identified. Degenerative changes are again visualized, greatest at C6-7. The atlantoaxial relationship is maintained. No prevertebral soft tissue swelling is seen. IMPRESSION: NO ACUTE BONY INJURY. Impression dictated by: Mima Bundy M.D.11/18/2022 5:43 PM Dictation Location: [place] [address] Transcribed By: [facility] 11/18/221742 Dictated By: Mima Bundy MD 11/18/22 173 Signed By: 11/18/221742 Normal [facility] Cannabinoids [Presence] in U rine by Screen methodOrdered By: Chapincito Toure on 11-18-2022 Cannabinoids Screen Ql (U) Negative Negative [facility] Comment on above: These are unconfirme d results and should not be used for legal purposes. Drug Cut-Off Concentration: AMPH 1000 ng/mL JUDY 200 ng/mL SRINIVASA 200 ng/mL COCM 300 ng/mL OP 300 ng/mL PCP 25 ng/mL THC 20 ng/mL Carbon dioxide, total [Moles /volume] in Serum or PlasmaOrdered By: Chapincito Toure on 11-18-2022 CO2 [Moles/Vol] 20.4 mmol/L 21.0-31.0 [facility] Chloride [Moles/volume] in S king or PlasmaOrdered By: Chapincito Toure on 11-18-2022 Chloride [Moles/Vol] 95 mmol/L 98-107 [facility] Complete Blood Count Auto Di ffon 11-18-2022 Basophils (Bld) [#/Vol] 0.1 10*3/uL Normal 0.0-0.2 [facility] Comment on above: Result Comment: PERF ORMED BY: [place] [address] PATHOLOGIST [employer] SUPERINTENDENT YFN SAMUEL M.D. Performed By: #### L IPASE, ETOH, GLU, BUN, CREAT, CK, CBC, VALERY, AST, LYTES #### [facility] [address] [place] [address] Basophils/100 WBC (Bld) 0.5 % Normal . [facility] Comment on above: Performed By: #### L IPASE, ETOH, GLU, BUN, CREAT, CK, CBC, VALERY, AST, LYTES #### [facility] [address] [place] [address] Eosinophils (Bld) [#/Vol] 0.0 10*3/uL Normal 0.0-0.45 [facility] Comment on above: Performed By: #### L IPASE, ETOH, GLU, BUN, CREAT, CK, CBC, VALERY, AST, LYTES #### [address] Eosinophils/100 WBC (Bld) 0.2 % Normal . [facility] Comment on above: Performed By: #### L IPASE, ETOH, GLU, BUN, CREAT, CK, CBC, VALERY, AST, LYTES #### [address] Erythrocyte distribution width (RBC) [Ratio] 14.6 % Normal 12.0-14.8 [facility] Comment on above: Performed By: #### L IPASE, ETOH, GLU, BUN, CREAT, CK, CBC, VALERY, AST, LYTES #### [address] Hematocrit (Bld) [Volume fraction] 41.0 % Normal 38.8-50.0 [facility] Comment on above: Performed By: #### L IPASE, ETOH, GLU, BUN, CREAT, CK, CBC, VALERY, AST, LYTES #### [address] Hemoglobin (Bld) [Mass/Vol] 14.5 g/dL Normal 13.0-17.0 [facility] Comment on above: Performed By: #### L IPASE, ETOH, GLU, BUN, CREAT, CK, CBC, VALERY, AST, LYTES #### [address] Lymphocytes (Bld) [#/Vol] 1.3 10*3/uL Normal 1.00-4.8 [facility] Comment on above: Performed By: #### L IPASE, ETOH, GLU, BUN, CREAT, CK, CBC, VALERY, AST, LYTES #### [address] Lymphocytes/100 WBC (Bld) 8.7 % Normal . [facility] Comment on above: Performed By: #### L IPASE, ETOH, GLU, BUN, CREAT, CK, CBC, VALERY, AST, LYTES #### [address] MCH (RBC) [Entitic mass] 32.5 pg Normal 27.5-35.2 [facility] Comment on above: Performed By: #### L IPASE, ETOH, GLU, BUN, CREAT, CK, CBC, VALERY, AST, LYTES #### [address] MCV (RBC) [Entitic vol] 92.1 fL Normal 83.5-101 [facility] Comment on above: Performed By: #### L IPASE, ETOH, GLU, BUN, CREAT, CK, CBC, VALERY, AST, LYTES #### [address] Mean Corpuscular HGB Conc 35.3 g/dL Normal 32.5-35.6 [facility] Comment on above: Performed By: #### L IPASE, ETOH, GLU, BUN, CREAT, CK, CBC, VALERY, AST, LYTES #### [address] Monocytes (Bld) [#/Vol] 0.6 10*3/uL Normal 0.0-0.8 [facility] Comment on above: Performed By: #### L IPASE, ETOH, GLU, BUN, CREAT, CK, CBC, VALERY, AST, LYTES #### [address] Monocytes/100 WBC (Bld) 20.12 % High 0.00-20.00 [facility] Comment on above: Result Comment: For adults in ED, MDW > 20.0 may be associated with a higher risk of sepsis during the first 12 hrs of hospital admission Performed By: #### L IPASE, ETOH, GLU, BUN, CREAT, CK, CBC, VALERY, AST, LYTES #### [address] Monocytes/100 WBC (Bld) 4.1 % Normal . [facility] Comment on above: Performed By: #### L IPASE, ETOH, GLU, BUN, CREAT, CK, CBC, VALERY, AST, LYTES #### [address] Neutrophils (Bld) [#/Vol] 12.8 10*3/uL High 1.8-7.7 [facility] Comment on above: Performed By: #### L IPASE, ETOH, GLU, BUN, CREAT, CK, CBC, VALERY, AST, LYTES #### [address] Neutrophils/100 WBC (Bld) 86.5 % Normal . [facility] Comment on above: Performed By: #### L IPASE, ETOH, GLU, BUN, CREAT, CK, CBC, VALERY, AST, LYTES #### [address] NRBC% 0.2 /100{WBC} Normal 0-0.5 [facility] Comment on above: Performed By: #### L IPASE, ETOH, GLU, BUN, CREAT, CK, CBC, VALERY, AST, LYTES #### [address] Platelet mean volume (Bld) [Entitic vol] 6.7 fL Normal 6.6-10.1 [facility] Comment on above: Performed By: #### L IPASE, ETOH, GLU, BUN, CREAT, CK, CBC, VALERY, AST, LYTES #### [address] Platelets (Bld) [#/Vol] 259 10*3/uL Normal 150-450 [facility] Comment on above: Performed By: #### L IPASE, ETOH, GLU, BUN, CREAT, CK, CBC, VALERY, AST, LYTES #### [address] RBC (Bld) [#/Vol] 4.45 10*6/uL Normal 3.90-5.60 [facility] Comment on above: Performed By: #### L IPASE, ETOH, GLU, BUN, CREAT, CK, CBC, VALERY, AST, LYTES #### [address] WBC (Bld) [#/Vol] 14.8 10*3/uL High 4.1-10.5 [facility] Comment on above: Performed By: #### L IPASE, ETOH, GLU, BUN, CREAT, CK, CBC, VALERY, AST, LYTES #### [facility] [address] Creatine Kinaseon 11-18-2022 CK [Catalytic activity/Vol] 82 U/L Normal [facility] Comment on above: Result Comment: Hemo lysis is present at a level that could interfere with the result. PERFORMED BY: [facility] [address] [place] [address] PATHOLOGIST BURGL[employer] ALARM SUPERINTENDENT YFN SAMUEL M.D. Performed By: #### L IPASE, ETOH, GLU, BUN, CREAT, CK, CBC, VALERY, AST, LYTES ####[place] [address] [address] Creatine kinase [Enzymatic a ctivity/volume] in Serum or PlasmaOrdered By: Chapincito Toure on 11-18-2022 CK [Catalytic activity/Vol] 82 U/L [facility] Comment on above: Hemolysis is present at a level that could interfere with the result. Creatinineon 11-18-2022 Creatinine [Mass/Vol] 0.68 mg/dL Low 0.70-1.30 [facility] Comment on above: Performed By: #### L IPASE, ETOH, GLU, BUN, CREAT, CK, CBC, VALERY, AST, LYTES ####[facility] Creatinine Clr Calc Pharmacy 137.56 [facility] Comment on above: Performed By: #### L IPASE, ETOH, GLU, BUN, CREAT, CK, CBC, VALERY, AST, LYTES ####[place] [address] [place] [id number] [facility] GFR/1.73 sq M.predicted MDRD (S/P/Bld) [Vol rate/Area] mL/min/{1.73_m2} [facility] Comment on above: Performed By: #### L IPASE, ETOH, GLU, BUN, CREAT, CK, CBC, VALERY, AST, LYTES ####[facility] Creatinine [Mass/volume] in Serum or PlasmaOrdered By: Chapincito Toure on 11-18-2022 Creatinine [Mass/Vol] 0.68 mg/dL 0.70-1.30 [facility] Drug Screen,Urineon 11-19-19 23 Amphetamine Screen,Urine Negative Normal Negative [facility] Comment on above: Performed By: #### R EDRAW AST, REDRAW K #### [facility] [address] [place] [address] Barbiturate Screen,Urine Negative Normal Negative [facility] Comment on above: Performed By: #### R EDRAW AST, REDRAW K #### [facility] [address] [place] [address] Benzodiazepines Screen,Urine Negative Normal Negative [facility] Comment on above: Performed By: #### R EDRAW AST, REDRAW K #### [address] Cannabinoid Screen,Urine Negative Normal Negative [facility] Comment on above: Result Comment: Thes e are unconfirmed results and should not be used for legal purposes. Drug Cut-Off Concentration: AMPH 1000 ng/mL JUDY 200 ng/mL SRINIVASA 200 ng/mL COCM 300 ng/mL OP 300 ng/mL PCP 25 ng/mL THC 20 ng/mL PERFORMED BY: [place] [address] PATHOLOGIST BURGLAR ALARM SUPERINTENDENT YFN SAMUEL M.D. Performed By: #### R EDRAW AST, REDRAW K #### [address] Cocaine Screen,Urine Negative Normal Negative [facility] Comment on above: Performed By: #### R EDRAW AST, REDRAW K #### [address] Opiate Screen,Urine Negative Normal Negative [facility] Comment on above: Performed By: #### R EDRAW AST, REDRAW K #### [address] Phencyclidine Screen,Urine Negative Normal Negative [facility] Comment on above: Performed By: #### R EDRAW AST, REDRAW K #### [facility] [address] [place] [address] [place] ECG 12 lead ECGon 11-18-2022 ECG 12 lead ECG [facility] Main [place] [address] [place] [address] Electrocardiograph Report Signed Patient: José Rojas MR#: [id number] : 1960 Acct:[id number] Age/Sex: 62 / M ADM Date: 11/18/22 Loc: ER Room: Type: [facility] ER Attending Dr: Ordering Provider: Chapincito Toure DO Date of Service: 11/18/22 ECG/ECG 12 lead ECG: Fall Copies to: Test Reason : Blood Pressure : 160/127 mmHG Vent. Rate : 130 BPM Atrial Rate : 130 BPM P-R Int : 136 ms QRS Dur : 082 ms QT Int : 378 ms P-R-T Axes : 060 097 083 degrees QTc Int : 556 ms Sinus tachycardia Rightward axis Nonspecific ST abnormality Abnormal ECG When compared with ECG of 23-SEP-2021 16:44, Nonspecific T wave abnormality no longer evident in Inferior leads Nonspecific T wave abnormality no longer evident in Lateral leads Confirmed by CHAPINCITO TOURE DO ([id number]) on 11/18/2022 8:14:25 PM Referred By: Electronically Signed By:CHAPINCITO TOURE DO Transcribed By: MUS Signed By Chapincito Toure DO 11/18 Normal [facility] ETHANOL, SERUMon 11-18-2022 Ethanol [Mass/Vol] mg/dL None Detected mg/dL [facility] Electrolyteson 11-18-2022 Anion gap [Moles/Vol] Not performed Normal 6.0-15.0 [facility] Comment on above: Performed By: #### L IPASE, ETOH, GLU, BUN, CREAT, CK, CBC, VALERY, AST, LYTES #### [facility] [address] [place] [address] Chloride [Moles/Vol] 95 mmol/L Low 98-107 [facility] Comment on above: Performed By: #### L IPASE, ETOH, GLU, BUN, CREAT, CK, CBC, VALERY, AST, LYTES #### [facility] [address] CO2 [Moles/Vol] 20.4 mmol/L Low 21.0-31.0 [facility] Comment on above: Performed By: #### L IPASE, ETOH, GLU, BUN, CREAT, CK, CBC, VALERY, AST, LYTES #### [facility] [address] Potassium Normal 3.5-5.1 [facility] Comment on above: Result Comment: Spec imen hemolyzed, redraw requested Performed By: #### L IPASE, ETOH, GLU, BUN, CREAT, CK, CBC, VALERY, AST, LYTES #### [facility] [address] Sodium [Moles/Vol] 128 mmol/L Low 136-145 [facility] Comment on above: Performed By: #### L IPASE, ETOH, GLU, BUN, CREAT, CK, CBC, VALERY, AST, LYTES #### [facility] [address] Eosinophils Auto (Bld) [#/Vo l]Ordered By: Chapincito Toure on 11-18-2022 Eosinophils (Bld) [#/Vol] 0.0 10*3/uL 0.0-0.45 [facility] Eosinophils/100 WBC Auto (Bl d)Ordered By: Chapincito Toure on 11-18-2022 Eosinophils/100 WBC (Bld) 0.2 % . [facility] Erythrocyte distribution wid th Auto (RBC) [Ratio]Ordered By: Chapincito Toure on 11-18-2022 Erythrocyte distribution width (RBC) [Ratio] 14.6 % 12.0-14.8 [facility] Ethanol [Mass/volume] in Ser um or PlasmaOrdered By: Chapincito Toure on 11-18-2022 Ethanol [Mass/Vol] mg/dL [facility] Ethanol [Mass/Vol] TNP [facility] Comment on above: Test not performed Ethyl Alcohol Profileon 10-31 Ethanol [Mass/Vol] mg/dL Normal [facility] Comment on above: Performed By: #### L IPASE, ETOH, GLU, BUN, CREAT, CK, CBC, VALERY, AST, LYTES ####[place] [address] [place] [id number] [facility] Percent Ethanol Not performed Normal [facility] Comment on above: Result Comment: PERF ORMED BY: [facility] [address] [place] [id number] PATHOLOGIST BURGLAR ALARM SUPERINTENDENT YFN SAMUEL M.D. Performed By: #### L IPASE, ETOH, GLU, BUN, CREAT, CK, CBC, VALERY, AST, LYTES ####[place] [address] [place] [id number] [facility] Glucoseon 11-18-2022 Glucose [Mass/Vol] 139 mg/dL High 70-100 [facility] Comment on above: Result Comment: [place] om Glucose Reference Range is dependent on time and content of last meal. Glucose of more than 200 mg/dL in a nonstressed, ambulatory subject supports the diagnosis of Diabetes Mellitus. ADA recommended reference range Performed By: #### L IPASE, ETOH, GLU, BUN, CREAT, CK, CBC, VALERY, AST, LYTES ####[place] [address] [place] [phone] [place] Glucose Glucometer (BldC) [M ass/Vol]Ordered By: Chapincito Toure on 11-18-2022 Glucose [Mass/Vol] 148 mg/dL [facility] Comment on above: Random Glucose Refer ence Range is dependent on time and content of last meal. Glucose of more than 200 mg/dL in a nonstressed, ambulatory subject supports the diagnosis of Diabetes Mellitus. Glucose Poct Glucometerson 0 11-18-2022 Glucose [Mass/Vol] 148 mg/dL Normal [facility] Comment on above: Result Comment: [place] Glucose Reference Range is dependent on time and content of last meal. Glucose of more than 200 mg/dL in a nonstressed, ambulatory subject supports the diagnosis of Diabetes Mellitus. PERFORMED BY: [facility] [address] [place] [address] PATHOLOGIST BURGLAR ALARM SUPERINTENDENT YFN SAMUEL M.D. Performed By: #### G DESEAN ####Point of Care testing, Glucose [Mass/volume] in Ser um or PlasmaOrdered By: Chapincito Toure on 11-18-2022 Glucose [Mass/Vol] 139 mg/dL 70-100 [facility] Comment on above: ADA recommended refe rence rangeRandom Glucose Reference Range is dependent on time and content of last meal. Glucose of more than 200 mg/dL in a nonstressed, ambulatory subject supports the diagnosis of Diabetes Mellitus. HEPATIC FUNCTION PANELon Albumin [Mass/Vol] 4.0 g/dL 3.4 - 5.1 g/dL [facility] ALP [Catalytic activity/Vol] 161 U/L [facility] ALT [Catalytic activity/Vol] 46 U/L High [facility] AST [Catalytic activity/Vol] 69 U/L High [facility] Bilirubin [Mass/Vol] 1.5 mg/dL 0.1 - 1 .5 mg/dL [facility] Bilirubin.direct [Mass/Vol] 0.28 mg/dL 0.10 - 0.30 mg/dL [facility] Protein [Mass/Vol] 6.5 g/dL 5.7 - 8.1 g/dL [facility] Hematocrit Auto (Bld) [Volum e fraction]Ordered By: Chapincito Toure on 11-18-2022 Hematocrit (Bld) [Volume fraction] 41.0 % 38.8-50.0 [facility] Hemoglobin [Mass/volume] in BloodOrdered By: Chapincito Toure on 11-18-2022 Hemoglobin (Bld) [Mass/Vol] 14.5 g/dL 13.0-17.0 [facility] LACTIC ACIDOrdered By: Chanell Josue on 11-18-2022 Interpretation and review of laboratory results Abnormal [facility] Lactate [Moles/Vol] 2.6 mmol/L High 0.5 - 2. 0 mmol/L [facility] LIPASEon 11-18-2022 Lipase [Catalytic activity/Vol] 126 U/L [facility] - Blood bankon ABO and Rh group Nom (Bld) Blood group O Rh(D) positive [facility] Leukocytes [#/volume] correc roxie for nucleated erythrocytes in Blood by Automated counOrdered By: Chapincito Toure on 11-18-2022 WBC corrected for nucl RBC Auto (Bld) [#/Vol] 14.8 10*3/uL 4.1-10.5 [facility] Lipaseon 11-18-2022 Lipase [Catalytic activity/Vol] 103.0 U/L High 11.0-82.0 [facility] Comment on above: Result Comment: PERF ORMED BY: [facility] [address] [facility] [place] [address] PATHOLOGIST BURGLAR ALARM SUPERINTENDENT YFN SAMUEL M.D. Performed By: #### L IPASE, ETOH, GLU, BUN, CREAT, CK, CBC, VALERY, AST, LYTES ####[facility] [place] [address] [facility] Lipase [Enzymatic activity/v olume] in Serum or PlasmaOrdered By: Chapincito Toure on 11-18-2022 Lipase [Catalytic activity/Vol] 103.0 U/L 11.0-82.0 [facility] Lymphocytes Auto (Bld) [#/Vo l]Ordered By: Chapincito Toure on 11-18-2022 Lymphocytes (Bld) [#/Vol] 1.3 10*3/uL 1.00-4.8 [facility] Lymphocytes/100 WBC Auto (Bl d)Ordered By: Chapincito Toure on 11-18-2022 Lymphocytes/100 WBC (Bld) 8.7 % . [facility] MAGNESIUMon 11-18-2022 Magnesium [Mass/Vol] 1.3 mg/dL Low 1.6 - 2 .8 mg/dL [facility]CH Auto (RBC) [Entitic mass ]Ordered By: Chapincito Toure on 11-18-2022 MCH (RBC) [Entitic mass] 32.5 pg 27.5-35.2 [facility] MCHC Auto (RBC) [Mass/Vol]Or dered By: Chapincito Toure on 11-18-2022 MCHC (RBC) [Mass/Vol] 35.3 g/dL 32.5-35.6 [facility] MCV Auto (RBC) [Entitic vol] Ordered By: Chapincito Toure on 11-18-2022 MCV (RBC) [Entitic vol] 92.1 fL 83.5-101 [facility] Monocyte distribution width [Entitic volume] in Blood by AutomatedOrdered By: Chapincito Toure on 11-18-2022 Monocyte distribution width Auto (Bld) [Entitic vol] 20.12 % 0.00-20.00 [facility] Comment on above: For adults in ED, MD W > 20.0 may be associated with a higher risk of sepsis during the first 12 hrs of hospital admission Monocytes Auto (Bld) [#/Vol] Ordered By: Chapincito Toure on 11-18-2022 Monocytes (Bld) [#/Vol] 0.6 10*3/uL 0.0-0.8 [facility] Monocytes/100 WBC Auto (Bld) Ordered By: Chapincito Toure on 11-18-2022 Monocytes/100 WBC (Bld) 4.1 % . [facility] Neutrophils Auto (Bld) [#/Vo l]Ordered By: Chapincito Toure on 11-18-2022 Neutrophils (Bld) [#/Vol] 12.8 10*3/uL 1.8-7.7 [facility] Neutrophils/100 WBC Auto (Bl d)Ordered By: Chapincito Toure on 11-18-2022 Neutrophils/100 WBC (Bld) 86.5 % . [facility] No Panel Informationon 11-18 [facility] Interpretation and review of laboratory results Normal [facility] Radiology Study observation (narrative) [facility] Interpretation and review of laboratory results Normal [facility] Interpretation and review of laboratory results [facility] No Panel InformationOrdered By: Chapincito Toure on 11-18-2022 Estimated GFR (CKD-EPI) > 60.0 mL/Min [facility] Creatinine Clearance (Chem 137.56 [facility] Nucleated erythrocytes [Pres ence] in Blood by Automated countOrdered By: Chapincito Toure on 11-18-2022 Nucleated RBC Auto Ql (Bld) 0.2 /100{WBC} 0-0.5 [facility] Opiates [Presence] in Urine by Screen methodOrdered By: Chapincito Toure on 11-18-2022 Opiates Screen Ql (U) Negative Negative [facility] PARTIAL THROMBOPLASTIN TIMEo n 11-18-2022 aPTT Coag (Bld) [Time] 27 s [facility] PROTHROMBIN TIME AND INRon 0 11-18-2022 INR Coag (PPP) [Relative time] 0.96 {INR} 0.90 - 1.[address] [facility] PT Coag (PPP) [Time] 10.8 [facility] Phencyclidine Screen Ql (U)O rdered By: Chapincito Toure on 11-18-2022 Phencyclidine Ql (U) Negative Negative [facility] Platelet mean volume Auto (B ld) [Entitic vol]Ordered By: Chapincito Toure on 11-18-2022 Platelet mean volume (Bld) [Entitic vol] 6.7 fL 6.6-10.1 [facility] Platelets Auto (Bld) [#/Vol] Ordered By: Chapincito Toure on 11-18-2022 Platelets (Bld) [#/Vol] 259 10*3/uL 150-450 [facility] Potassium [Moles/volume] in Serum or PlasmaOrdered By: Chapincito Toure on 11-18-2022 Potassium [Moles/Vol] 3.6 mmol/L 3.5-5.1 [facility] Comment on above: Hemolysis is present at a level that could interfere with the result. RBC Auto (Bld) [#/Vol]Ordere d By: Chapincito Toure on 11-18-2022 RBC (Bld) [#/Vol] 4.45 10*6/uL 3.90-5.60 [facility] Redraw Perfecto 11-18-2022 AST [Catalytic activity/Vol] 73 U/L High 13-39 [facility] Comment on above: Result Comment: PERF ORMED BY: [place] [address] PATHOLOGIST BURGLAR ALARM SUPERINTENDENT YFN SAMUEL M.D. Performed By: #### R EDRAW AST, REDRAW K #### [facility] [address] Redraw Potassiumon Potassium [Moles/Vol] 3.6 mmol/L Normal 3.5-5.1 [facility] Comment on above: Result Comment: Hemo lysis is present at a level that could interfere with the result. Performed By: #### R EDRAW AST, REDRAW K #### [address] Serum or plasma anion gap de terminationOrdered By: Chapincito Toure on 11-18-2022 Anion gap [Moles/Vol] TNP [facility] Comment on above: Test not performed Sodium [Moles/volume] in Ser um or PlasmaOrdered By: Chapincito Toure on 11-18-2022 Sodium [Moles/Vol] 128 mmol/L 136-145 [facility] TYPE AND SCREENon 11-18-2022 ABO and Rh group Nom (Bld) No Previous Results [facility] Blood group antibody screen Ql Negative [facility] Type and Screenon 11-18-2022 ABO and Rh group Nom (Bld) Blood group O Rh(D) positive Normal [facility] Comment on above: Order Comment: ADITYA Barajas RN TO DRAW,KAH Result Comment: PERF ORMED BY: [place] [address] PATHOLOGIST BURGLAR ALARM SUPERINTENDENT YFN SAMUEL M.D. Urea nitrogen [Mass/volume] in Serum or PlasmaOrdered By: Chapincito Toure on 11-18-2022 Urea nitrogen [Mass/Vol] 10 mg/dL 7-25 [facility] WBC Auto (Bld) [#/Vol]Ordere d By: Chapincito Toure on 11-18-2022 WBC (Bld) [#/Vol] 14.8 10*3/uL 4.1-10.5 [facility] XR Finger - left Viewson Radiology Study observation (narrative) [facility] XR chest 1V portableon 11-18 XR chest 1V portable [facility] Main [place] [address] [place] [id number] XRay Report Signed Patient: José Rojas MR#: [id number] : 1960 Acct:[id number] Age/Sex: 62 / M ADM Date: 11/18/22 Loc: ER Room: Type: [facility] ER Attending Dr: Copies to: Chapincito Toure DO Ordering Provider: Chapincito Toure DO Date of Service: 11/18/22 XR/XR chest 1V portable: Fall PORTABLE AP ERECT CHEST 1727 hours CLINICAL HISTORY: Patient fell yesterday. Pain with inspiration. COMPARISON: 09/13/2021 The right hemidiaphragm is slightly elevated. The heart is within normal limits. There is no vascular congestion. The lungs, as visualized, are clear. There is no effusion or pneumothorax. The osseous structures are intact. End plate spurring is seen at the spine. XR/XR chest 1V portable IMPRESSION: NO ACUTE FINDINGS Impression dictated by: Mima Bundy M.D.11/18/2022 7:47 PM Dictation Location: [place] [address] Transcribed By: [facility] 11/18/221946 Dictated By: Mima Bundy MD 11/18/221945 Signed By: 11/18/221946 Normal [facility] Hemoglobinon 11-17-2022 Hemoglobin (Bld) [Mass/Vol] 14.5 g/dL Normal 13.0-17.0 [facility] Comment on above: Result Comment: PERF ORMED BY: [place] [address] PATHOLOGIST BURGLAR ALARM SUPERINTENDENT YFN SAMUEL M.D. Performed By: #### P SATOTAL, HGB, TEST #### [address] Hemoglobin [Mass/volume] in BloodOrdered By: Messi Marie on 11-17-2022 Hemoglobin (Bld) [Mass/Vol] 14.5 g/dL 13.0-17.0 [facility] PSA Total (Not a Screen)on 0 11-17-2022 PSA Total (Not a Screen) 0.830 ng/mL Normal 0.000-4.00 0 [facility] Comment on above: Result Comment: PERF ORMED BY: [place] [address] PATHOLOGIST BURGLAR ALARM SUPERINTENDENT YFN SAMUEL M.D. Performed By: #### P SATOTAL, HGB, TEST #### [facility] [address] Prostate specific Ag [Mass/v olume] in Serum or PlasmaOrdered By: Messi Marie on 11-17-2022 Prostate specific Ag [Mass/Vol] 0.830 ng/mL 0.000-4.00 0 [facility] Testosteroneon 11-17-2022 Testosterone 1.30 ng/mL Low 1.75-7.81 [facility] Comment on above: Result Comment: PERF ORMED BY: [address] [place] [address] PATHOLOGIST BURGLAR ALARM SUPERINTENDENT YFN SAMUEL M.D. Performed By: #### P SATOTAL, HGB, TEST #### [facility] [address] Testosterone [Mass/volume] i n Serum or PlasmaOrdered By: Messi Marie on 11-17-2022 Testosterone [Mass/Vol] 1.30 ng/mL 1.75-7.81 [facility] XR HIP 2-3 VW W PELVIS LEFTo n 08-20-2022 XR HIP 2-3 VW W PELVIS LEFT Radiographs of the left hip were personally reviewed, AP pelvis, AP left hip and frog lateral left hip and they revealed: There is no evidence of any fracture. 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 Alignment and position appear to be good. The acetabular and femoral components are well fixed on both sides without any evidence of loosening. No periprosthetic fractures are noted. The symphysis pubis and the sacroiliac joints are intact. No periprosthetic fracture. No intra-articular loose body in either hip. Interpreted by: Prem Guthrie MD Signed by: Prem Guthrie MD 08/20/22 Final result Normal [facility] XR femur LT 2V*on 08-10-2022 XR femur LT 2V* [facility] Main [place] [address] [place] [address] XRay Report Signed Patient: José Rojas MR#: [id number] : 1960 Acct:[id number] Age/Sex: 62 / M ADM Date: 08/10/22 Loc: ER Room: Type: [facility] ER Attending Dr: Copies to: Hector Cheng MD Ordering Provider: Hector Cheng MD Date of Service: 08/10/22 XR/XR pelvis 1-2V: Extremity Injury, Lower ([id number]) XR/XR femur LT 2V*: Extremity Injury, Lower XR pelvis 1-2V, XR femur LT 2V* 08/10/2022 12:22 AM SIGNS AND SYMPTOMS: Popping sensation in left hip, recent left hip surgery PROTOCOL: Frontal radiograph of the pelvis with frontal and lateral views of the left femur COMPARISON: Radiographs of the left femur 10/15/2018 FINDINGS: Pelvis: There is total hip arthroplasty hardware bilaterally. The bony ring of the pelvis is intact. There is no fracture or dislocation. No hardware complication. The sacroiliac joints are preserved. V ascular calcifications are present in the pelvis. Left femur: There is total left hip arthroplasty hardware without fracture or hardware complication. The left femur is grossly intact. Minimal degenerative changes are noted in the left knee. Vascular calcifications are present in the soft tissues. There is enthesophyte formation at the quadriceps insertion of the patella. XR/XR pelvis 1-2V IMPRESSION: Pelvis: Bilateral total hip arthroplasty hardware is noted. No fracture or dislocation. Left femur: Interval placement of total left hip arthroplasty hardware without hardware complication or fracture. Degenerative changes are noted in the left knee similar to the prior exam. Impression dictated by: Tiburcio Witt M.D.08/10/2022 8:44 AM Dictation Location: [place] [address] Transcribed By: [facility] 08/10/2244 Dictated By: Tiburcio Witt II, MD 08/10/2241 Signed By: 08/10/2244 [facility] XR HIP 2-3 VW W PELVIS LEFTo n 07-05-2022 XR HIP 2-3 VW W PELVIS LEFT Radiographs left hip, 3 views, AP bilateral, AP left hip, frog lateral show bilateral total hip arthroplasties in good alignment. Implants appear to be well fixed on both the femoral and acetabular sides. No evidence of any loosening. Interpreted by: KAE Pizano MD Signed by: Prem Guthrie MD 07/19/22 Final result Normal [facility] Basic Metabolic Panel Reflex Mgon 06-22-2022 Anion gap [Moles/Vol] 10 mmol/L Normal 9-15 [facility] Comment on above: Performed By: #### B MPX #### [facility] [address] [place] [address] Calcium [Mass/Vol] 8.2 mg/dL Low 8.5-9.9 [facility] Comment on above: Performed By: #### B MPX #### [facility] [address] [place] [address] Chloride [Moles/Vol] 106 mmol/L Normal 95-107 [facility] Comment on above: Performed By: #### B MPX #### [facility] [address] [place] [address] CO2 [Moles/Vol] 25 mmol/L Normal 20-31 [facility] Comment on above: Performed By: #### B MPX #### [facility] [address] [place] [address] Creatinine [Mass/Vol] 0.78 mg/dL Normal 0.70-1.20 [facility] Comment on above: Performed By: #### B MPX #### [facility] [address] [place] [address] GFR >60.0 Normal >60 [facility] Comment on above: Result Comment: Pedi atric calculator link https://www.kidney.org/professionals/kdoqi/gfr_calculatorped Effective Feb 01, 2022 These results are not intended for use in patients <18 years of age. eGFR results are calculated without a race factor using the 2020 CKD-EPI equation. Careful clinical correlation is recommended, particularly when comparing to results calculated using previous equations. The CKD-EPI equation is less accurate in patients with extremes of muscle mass, extra-renal metabolism of creatinine, excessive creatinine ingestion, or following therapy that affects renal tubular secretion. Performed By: #### B MPX #### [facility] [address] [place] [address] Glucose [Mass/Vol] 82 mg/dL Normal 70-99 [facility] Comment on above: Performed By: #### B MPX #### [facility] [address] [place] [address] Magnesium [Moles/Vol] 4.2 mmol/L Normal 3.4-4.9 [facility] Comment on above: Performed By: #### B MPX #### [facility] [address] [place] [address] Sodium [Moles/Vol] 141 mmol/L Normal 135-144 [facility] Comment on above: Performed By: #### B MPX #### [facility] [address] [place] [address] Urea nitrogen [Mass/Vol] 17 mg/dL Normal 8-23 [facility] Comment on above: Performed By: #### B MPX #### [facility] [address] [place] [address] CBC With Platelet No Differe ntialon 06-22-2022 Erythrocyte distribution width (RBC) [Ratio] 14.5 % Normal 11.5-14.5 [facility] Comment on above: Performed By: #### C BCND #### [facility] [address] [place] [address] Hematocrit (Bld) [Volume fraction] 39.5 % Low 42.0-52.0 [facility] Comment on above: Performed By: #### C BCND #### [facility] [address] [place] [address] Hemoglobin (Bld) [Mass/Vol] 13.2 g/dL Low 14.0-18.0 [facility] Comment on above: Performed By: #### C BCND #### [facility] [address] [place] [address] MCH (RBC) [Entitic mass] 31.4 pg Critically high 27.0-31.3 [facility] Comment on above: Performed By: #### C BCND #### [facility] [address] [place] [address] MCHC 33.5 % Normal 33.0-37.0 [facility] Comment on above: Performed By: #### C BCND #### [facility] [address] [place] [address] MCV (RBC) [Entitic vol] 93.7 fL Critically high 79.0-92.2 [facility] Comment on above: Performed By: #### C BCND #### [facility] [address] [place] [address] Platelets (Bld) [#/Vol] 290 10*3/uL Normal 130-400 [facility] Comment on above: Performed By: #### C BCND #### [facility] [address] [place] [address] RBC (Bld) [#/Vol] 4.22 10*6/uL Low 4.70-6.10 [facility] Comment on above: Performed By: #### C BCND #### [facility] [address] [place] [address] WBC (Bld) [#/Vol] 11.3 10*3/uL Critically high 4.8-10.8 [facility] Comment on above: Performed By: #### C BCND #### [facility] [address] [place] [address] Alcoholon 06-21-2022 Blood Alcohol Concentration Not indicated Normal [facility] Comment on above: Performed By: #### A LCOH #### [facility] [address] [place] [address] Ethanol [Mass/Vol] mg/dL Normal [facility] Comment on above: Performed By: #### A LCOH #### [facility] [address] [place] [address] FLUORO FOR SURGICAL PROCEDUR ESon 06-21-2022 FLUORO FOR SURGICAL PROCEDURES EXAMINATION: SPOT FLUOROSCOPIC IMAGES 06/21/2022 2:50 pm TECHNIQUE: Fluoroscopy was provided by the radiology department for procedure. Radiologist was not present during examination. FLUOROSCOPY DOSE AND TYPE: Radiation Exposure Index: Fluoroscopy time equals 3 seconds. Total dose equals 0 0.8 mGy COMPARISON: None HISTORY: ORDERING SYSTEM PROVIDED HISTORY: Pain TECHNOLOGIST PROVIDED HISTORY: Reason for exam:->hip arthroplasty replacement What reading provider will be dictating this exam?->CRC Intraprocedural imaging. FINDINGS: 1 spot images of the hip were obtained. IMPRESSION: Intraprocedural fluoroscopic spot images as above. See separate procedure report for more information. Interpreted by: Cayetano Mckeon MD Signed by: Cayetano Mckeon MD 06/21/22 Final result Normal [facility] Fluoro For Surgical Procedur eson 06-21-2022 EXAMINATION: SPOT FLUOROSCOPIC IMAGES 06/21/2022 2:50 pm TECHNIQUE: Fluoroscopy was provided by the radiology department for procedure. Radiologist was not present during examination. FLUOROSCOPY DOSE AND TYPE: Radiation Exposure Index: Fluoroscopy time equals 3 seconds. Total dose equals 0 0.8 mGy COMPARISON: None HISTORY: ORDERING SYSTEM PROVIDED HISTORY: Pain TECHNOLOGIST PROVIDED HISTORY: Reason for exam:->hip arthroplasty replacement What reading provider will be dictating this exam?->CRC Intraprocedural imaging. FINDINGS: 1 spot images of the hip were obtained. [facility] Cayetano Mckeon MD - 06/21/2022 EXAMINATION: SPOT FLUOROSCOPIC IMAGES 06/21/2022 2:50 pm TECHNIQUE: Fluoroscopy was provided by the radiology department for procedure. Radiologist was not present during examination. FLUOROSCOPY DOSE AND TYPE: Radiation Exposure Index: Fluoroscopy time equals 3 seconds. Total dose equals 0 0.8 mGy COMPARISON: None HISTORY: ORDERING SYSTEM PROVIDED HISTORY: Pain TECHNOLOGIST PROVIDED HISTORY: Reason for exam:->hip arthroplasty replacement What reading provider will be dictating this exam?->CRC Intraprocedural imaging. FINDINGS: 1 spot images of the hip were obtained. IMPRESSION: Intraprocedural fluoroscopic spot images as above. See separate procedure report for more information. [facility] [employer] [facility] Phone: Radiology Study observation (narrative) [facility] Phone: Fluoro For Surgical Procedur esOrdered By: Cayetano Mckeon on 06-21-2022 DIANA ELIZABETH [employer] Work Phone: Type and 3 cell Screen OB Ca ptureon 06-21-2022 Type and 3 cell Screen OB Capture PATIENT: RIZWAN LOPEZ LOC: LCOPS,ORPOOL,NON BILL# : [id number] : 1960 SEX: M ORDERED BY: MARILEE ROE ORDERED : 06/21/2022 11:26 COLLECTED: 06/21/2022 11:22 ORDER : [id number] RECEIVED : 06/21/2022 11:29 TEST NAME RESULT UNITS RANGES ABN FL ST ABORH Capture O POS F Antibody 3 Cell Scrn Captu NEG F Normal [facility] Comment on above: Performed By: #### T SO3C #### [facility] [address] [facility] [address] UR Drugs of Abuse Panelon Drug Screen Comment see below Normal [facility] Comment on above: Result Comment: This method is a screening test to detect only these drug classes as part of a medical workup. Confirmatory testing by another method should be ordered if clinically indicated. Performed By: #### U DRGS #### [facility] [address] [place] [address] UR Amphetamines Screen Negative Normal Negative < [facility] Comment on above: Performed By: #### U DRGS #### [facility] [address] [place] [address] UR Barbiturates Screen Negative Normal Negative < [facility] Comment on above: Performed By: #### U DRGS #### [facility] [address] [place] [address] UR Benzo Screen Negative Normal Negative < [facility] Comment on above: Performed By: #### U DRGS #### [facility] [address] [place] [address] UR Cannabinoids Screen Positive Abnormal Negative < [facility] Comment on above: Performed By: #### U DRGS #### [facility] [address] [place] [address] UR Cocaine Screen Negative Normal Negative < [facility] Comment on above: Performed By: #### U DRGS #### [facility] [address] [place] [address] UR Fentanyl Screen Negative Normal Negative < [facility] Comment on above: Performed By: #### U DRGS #### [facility] [address] [place] [address] UR Methadone Screen Negative Normal Negative < [facility] Comment on above: Performed By: #### U DRGS #### [facility] [address] [place] [address] UR Opiates Screen Positive Abnormal Negative < [facility] Comment on above: Performed By: #### U DRGS #### [facility] [address] [place] [address] UR Oxycodone Screen Positive Abnormal Negative < [facility] Comment on above: Performed By: #### U DRGS #### [facility] [address] [place] [address] UR PCP Screen Negative Normal Negative < [facility] Comment on above: Performed By: #### U DRGS #### [facility] [address] [place] [address] UR Propoxyphene Screen Negative Normal Negative < [facility] Comment on above: Performed By: #### U DRGS #### [facility] [address] [place] [address] XR PELVIS (1-2 VIEWS)on 06-03 XR PELVIS (1-2 VIEWS) EXAMINATION: ONE XRAY VIEW OF THE PELVIS 06/21/2022 2:26 pm COMPARISON: 04 May 2022 HISTORY: ORDERING SYSTEM PROVIDED HISTORY: post-op TECHNOLOGIST PROVIDED HISTORY: Reason for exam:->post-op What reading provider will be dictating this exam?->CRC FINDINGS: Anatomically aligned bilateral LIDIA, the left-side placed recently. No abnormal bone or soft tissue findings. IMPRESSION: Bilateral LIDIA with no unexpected findings. Interpreted by: Mirna Hernandez MD Signed by: Mirna Hernandez MD 06/21/22 Final result Normal [facility] Ferritinon 06-15-2022 Ferritin [Mass/Vol] 138 ng/mL Normal 30-400 [facility] Comment on above: Result Comment: [employer] [address] [place] [address] Iron Binding Capon 3 % Fe Saturation 43 % Normal 20-55 [facility] Iron [Mass/Vol] 138 ug/dL Normal 59-158 [facility] Total Fe Binding Cap 319 ug/dL Normal 250-450 [facility] Fe Bind Cap 181 ug/dL Normal 112-347 [facility] Comment on above: Result Comment: [employer] [address] [place] [address] Transferrinon 06-15-2022 Transferrin [Mass/Vol] 282 mg/dL Normal 200-360 [facility] Comment on above: Result Comment: Perf ormed By: [employer] [address] [place] [address] Negotiator Sales: Emanuel Batres MD, PhD Basic Metabolic Panelon 06-02 Anion gap [Moles/Vol] 13 mmol/L Normal 9-15 [facility] Comment on above: Performed By: #### B MP #### [facility] [address] [place] [address] Calcium [Mass/Vol] 9.9 mg/dL Normal 8.5-9.9 [facility] Comment on above: Performed By: #### B MP #### [facility] [address] [place] [address] Chloride [Moles/Vol] 103 mmol/L Normal 95-107 [facility] Comment on above: Performed By: #### B MP #### [facility] [address] [place] [address] CO2 [Moles/Vol] 24 mmol/L Normal 20-31 [facility] Comment on above: Performed By: #### B MP #### [facility] [address] [place] [address] Creatinine [Mass/Vol] 0.76 mg/dL Normal 0.70-1.20 [facility] Comment on above: Performed By: #### B MP #### [facility] [address] [place] [address] GFR >60.0 Normal >60 [facility] Comment on above: Result Comment: Pedi atric calculator link https://www.kidney.org/professionals/kdoqi/gfr_calculatorped Effective Feb 01, 2022 These results are not intended for use in patients <18 years of age. eGFR results are calculated without a race factor using the 2020 CKD-EPI equation. Careful clinical correlation is recommended, particularly when comparing to results calculated using previous equations. The CKD-EPI equation is less accurate in patients with extremes of muscle mass, extra-renal metabolism of creatinine, excessive creatinine ingestion, or following therapy that affects renal tubular secretion. Performed By: #### B MP #### [facility] [address] [place] [address] Glucose [Mass/Vol] 89 mg/dL Normal 70-99 [facility] Comment on above: Performed By: #### B MP #### [facility] [address] [place] [address] Potassium [Moles/Vol] 4.1 mmol/L Normal 3.4-4.9 [facility] Comment on above: Performed By: #### B MP #### [facility] [address] [place] [address] Sodium [Moles/Vol] 140 mmol/L Normal 135-144 [facility] Comment on above: Performed By: #### B MP #### [facility] [address] [place] [address] Urea nitrogen [Mass/Vol] 10 mg/dL Normal 8-23 [facility] Comment on above: Performed By: #### B MP #### [facility] [address] [place] [address] CBC With Platelet and Differ entialon 06-14-2022 Basophils (Bld) [#/Vol] 0.0 10*3/uL Normal 0.0-0.2 [facility] Comment on above: Performed By: #### C BCWD #### [facility] [address] [place] [address] Basophils/100 WBC (Bld) 0.5 % Normal [facility] Comment on above: Performed By: #### C BCWD #### [facility] [address] [place] [address] Eosinophils (Bld) [#/Vol] 0.1 10*3/uL Normal 0.0-0.7 [facility] Comment on above: Performed By: #### C BCWD #### [facility] [address] [place] [address] Eosinophils/100 WBC (Bld) 1.3 % Normal [facility] Comment on above: Performed By: #### C BCWD #### [facility] [address] [place] [address] Erythrocyte distribution width (RBC) [Ratio] 14.7 % Critically high 11.5-14.5 [facility] Comment on above: Performed By: #### C BCWD #### [facility] [address] [place] [address] Hematocrit (Bld) [Volume fraction] 50.8 % Normal 42.0-52.0 [facility] Comment on above: Performed By: #### C BCWD #### [facility] [address] [place] [address] Hemoglobin (Bld) [Mass/Vol] 17.0 g/dL Normal 14.0-18.0 [facility] Comment on above: Performed By: #### C BCWD #### [facility] [address] [place] [address] Lymphocytes (Bld) [#/Vol] 2.2 10*3/uL Normal 1.0-4.8 [facility] Comment on above: Performed By: #### C BCWD #### [facility] [address] [place] [address] Lymphocytes/100 WBC (Bld) 24.8 % Normal [facility] Comment on above: Performed By: #### C BCWD #### [facility] [address] [place] [address] MCH (RBC) [Entitic mass] 31.2 pg Normal 27.0-31.3 [facility] Comment on above: Performed By: #### C BCWD #### [facility] [address] [place] [address] MCHC 33.4 % Normal 33.0-37.0 [facility] Comment on above: Performed By: #### C BCWD #### [facility] [address] [place] [address] MCV (RBC) [Entitic vol] 93.3 fL Critically high 79.0-92.2 [facility] Comment on above: Performed By: #### C BCWD #### [facility] [address] [place] [address] Monocytes (Bld) [#/Vol] 0.6 10*3/uL Normal 0.2-0.8 [facility] Comment on above: Performed By: #### C BCWD #### [facility] [address] [place] [address] Monocytes/100 WBC (Bld) 7.1 % Normal [facility] Comment on above: Performed By: #### C BCWD #### [facility] [address] [place] [address] Neutrophils (Bld) [#/Vol] 5.9 10*3/uL Normal 1.4-6.5 [facility] Comment on above: Performed By: #### C BCWD #### [facility] [address] [place] [address] Neutrophils/100 WBC (Bld) 66.3 % Normal [facility] Comment on above: Performed By: #### C BCWD #### [facility] [address] [place] [address] Platelets (Bld) [#/Vol] 345 10*3/uL Normal 130-400 [facility] Comment on above: Performed By: #### C BCWD #### [facility] [address] [place] [address] RBC (Bld) [#/Vol] 5.44 10*6/uL Normal 4.70-6.10 [facility] Comment on above: Performed By: #### C BCWD #### [facility] [address] [place] [address] WBC (Bld) [#/Vol] 9.0 10*3/uL Normal 4.8-10.8 [facility] Comment on above: Performed By: #### C BCWD #### [facility] [address] [place] [address] Culture, Urineon 06-14-2022 Culture, Urine ORDER#: [id number] OR DERED BY: PREM GUTHRIE SOURCE: Urine Clean Catch COLLECTED: 06/14/22 11:29 ANTIBIOTICS AT JERONIMO.: RECEIVED : 06/14/22 12:52 Culture, Urine FINAL 06/15/22 13:43 Cult,Urine: NO SIGNIFICANT GROWTH Performed at [address] [id number] [phone] Normal [facility] Comment on above: Performed By: #### C XURN #### [facility] [address] [place] [address] Hemoglobin A1con 06-14-2022 HbA1c (Bld) [Mass fraction] 5.4 % Normal 4.8-5.9 [facility] Comment on above: Performed By: #### A 1C #### [facility] [address] [place] [address] Prealbuminon 06-14-2022 Prealbumin [Mass/Vol] 33.9 mg/dL Normal 20.0-40.0 [facility] Comment on above: Performed By: #### P ALB #### [facility] [address] [place] [address] Prothrombin Timeon 3 INR Coag (PPP) [Relative time] 1.0 {INR} Normal [facility] Comment on above: Performed By: #### P T #### [facility] [address] [place] [address] PT Coag (PPP) [Time] 13.0 s Normal 12.3-14.9 [facility] Comment on above: Performed By: #### P T #### [facility] [address] [place] [address] Type and 3 cell Screen OB Ca ptureon 06-14-2022 Type and 3 cell Screen OB Capture PATIENT: RIZWAN LOPEZ LOC: [place] BILL# : [id number] : 1960 SEX: M ORDERED BY: MARILEE ROE ORDERED : 06/14/2022 11:09 COLLECTED: 06/14/2022 11:12 ORDER : [id number] RECEIVED : 06/14/2022 13:14 TEST NAME RESULT UNITS RANGES ABN FL ST ABORH Capture O POS F Antibody 3 Cell Scrn Captu NEG F Normal [facility] Comment on above: Performed By: #### T SO3C ####[facility] [place] [phone] Urinalysis, reflex to micros copicon 06-14-2022 Bilirubin Ql (U) Negative Normal Negative [facility] Comment on above: Performed By: #### U A #### [facility] [address] [place] [address] Clarity (U) Clear Normal Clear [facility] Comment on above: Performed By: #### U A #### [facility] [address] [place] [address] Color (U) Yellow Normal Straw/Haywood [facility] Comment on above: Performed By: #### U A #### [facility] [address] [place] [address] Glucose Ql (U) Negative Normal Negative [facility] Comment on above: Performed By: #### U A #### [facility] [address] [place] [address] Hemoglobin Ql (U) Negative Normal Negative [facility] Comment on above: Performed By: #### U A #### [facility] [address] [place] [address] Ketones Ql (U) TRACE Abnormal Negative [facility] Comment on above: Performed By: #### U A #### [facility] [address] [place] [address] Leukocyte esterase Test strip Ql (U) Negative Normal Negative [facility] Comment on above: Performed By: #### U A #### [facility] [address] [place] [address] Nitrite Ql (U) Negative Normal Negative [facility] Comment on above: Performed By: #### U A #### [facility] [address] [place] [address] pH (U) 6.5 [pH] Normal 5.0-9.0 [facility] Comment on above: Performed By: #### U A #### [facility] [address] [place] [address] Protein Ql (U) Negative Normal Negative [facility] Comment on above: Performed By: #### U A #### [facility] [address] [place] [address] Specific gravity (U) [Rel density] 1.019 Normal 1.005-1.03 [facility] Comment on above: Performed By: #### U A #### [facility] [address] [place] [address] Urobilinogen Qn (U) 0.2 {Dutch'U}/dL Normal < 2.0 [facility] Comment on above: Performed By: #### U A #### [facility] [address] [place] [address] XR HIP 2-3 VW W PELVIS LEFTo n 05-04-2022 XR HIP 2-3 VW W PELVIS LEFT Radiographs of the left hip were personally reviewed, AP pelvis, AP left hip and frog lateral left hip and they revealed: no evidence of fracture and 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 It is well fixed and well aligned. No evidence of any loosening. Patient has moderate degenerative changes of the left hip, with osteophyte formation inferiorly at the head neck junction. There were no intra-articular loose bodies no destructive bony lesions noted. The symphysis pubis and the sacroiliac joints are intact. Interpreted by: Prem Guthrie MD Signed by: Prem Guthrie MD 05/07/22 Final result Normal [facility] CBC W Auto Differential pane l (Bld)on 02-26-2022 Basophils (Bld) [#/Vol] 0.09 10*3/uL Normal <0.11 [facility] Comment on above: Order Comment: Speci men Type: BLOOD SPECIMENOrdering Facility: [facility] Address: [address] [place], [place] [address] Performed By: #### 5 7021-8 ####[facility] LABORATORYCLIA [id number] [facility] [place] [address] [place] Basophils/100 WBC (Bld) 1.1 % Normal [facility] Comment on above: Order Comment: Speci men Type: BLOOD SPECIMENOrdering Facility: [facility] Address: [address] [place], [place] [address] Performed By: #### 5 7021-8 ####[facility]ORATORYCLIA [id number] [facility] [place] [address] [place] Differential cell count method Nom (Bld) Auto Normal [facility] Comment on above: Order Comment: Speci men Type: BLOOD SPECIMENOrdering Facility: [facility] Address: [address] [place], [place] [address] Performed By: #### 5 7021-8 ####[facility] LABORATORYIA [id number] [facility] [place] [address] [place] Eosinophils (Bld) [#/Vol] 0.16 10*3/uL Normal <0.46 [facility] Comment on above: Order Comment: Speci men Type: BLOOD SPECIMENOrdering Facility: [facility] Address: [address] [place], [place] [address] Performed By: #### 5 7021-8 ####[facility] LABORATORYCLIA [id number] [facility] [place] [address] [place] Eosinophils/100 WBC (Bld) 1.9 % Normal [facility] Comment on above: Order Comment: Speci men Type: BLOOD SPECIMENOrdering Facility: [facility] Address: [address] [place], [place] [address] Performed By: #### 5 7021-8 ####[facility] LABORATORYCLIA [id number] [address] [place] Erythrocyte distribution width (RBC) [Ratio] 12.9 % Normal 11.5-15.0 [facility] Comment on above: Order Comment: Speci men Type: BLOOD SPECIMENOrdering Facility: [facility] Address: [address] [place] [address] Performed By: #### 5 7021-8 ####[facility] LABORATORYCLIA [id number] [place] [address] [place] Hematocrit (Bld) [Volume fraction] 48.0 % Normal 39.0-51.0 [facility] Comment on above: Order Comment: Speci men Type: BLOOD SPECIMENOrdering Facility: [facility] Address: [address] [place] [address] Performed By: #### 5 7021-8 ####[facility] HOSPITALIA [id number] [place] [address] [place] Hemoglobin (Bld) [Mass/Vol] 16.0 g/dL Normal 13.0-17.0 [facility] Comment on above: Order Comment: Speci men Type: BLOOD SPECIMENOrdering Facility: [facility] Address: [address] [place] [address] Performed By: #### 5 7021-8 ####[facility] LABORATORYIA [id number] [place] [address] [place] Immature granulocytes (Bld) [#/Vol] 0.16 10*3/uL High <0.10 [facility] Comment on above: Order Comment: Speci men Type: BLOOD SPECIMENOrdering Facility: [facility] Address: [address] [place] [address] Performed By: #### 5 7021-8 ####[facility] [id number] [address] [place] Immature granulocytes/100 WBC (Bld) 1.9 % Normal [facility] Comment on above: Order Comment: Speci men Type: BLOOD SPECIMENOrdering Facility: [facility] Address: [address] [place] [address] Performed By: #### 5 7021-8 ####[facility] HOSPITALIA [id number] [place] [address] [place] Lymphocytes (Bld) [#/Vol] 1.78 10*3/uL Normal 1.00-4.00 [facility] Comment on above: Order Comment: Speci men Type: BLOOD SPECIMENOrdering Facility: [facility] Address: [address] [place] [address] Performed By: #### 5 7021-8 ####[facility]ITALIA [id number] [address] [place] Lymphocytes/100 WBC (Bld) 21.1 % Normal [facility] Comment on above: Order Comment: Speci men Type: BLOOD SPECIMENOrdering Facility: [facility] Address: [address] [place] [address] Performed By: #### 5 7021-8 ####[facility] [id number] [address] [place] MCH (RBC) [Entitic mass] 33.3 pg Normal 26.0-34.0 [facility] Comment on above: Order Comment: Speci men Type: BLOOD SPECIMENOrdering Facility: [facility] Address: [address] [place] [address] Performed By: #### 5 7021-8 ####[facility]ITALIA [id number] [address] [place] MCHC (RBC) [Mass/Vol] 33.3 g/dL Normal 30.5-36.0 [facility] Comment on above: Order Comment: Speci men Type: BLOOD SPECIMENOrdering Facility: [facility] Address: [address] [place] [address] Performed By: #### 5 7021-8 ####[facility]PITALIA [id number] [place] [address] [place] MCV (RBC) [Entitic vol] 99.8 fL Normal 80.0-100.0 [facility] Comment on above: Order Comment: Speci men Type: BLOOD SPECIMENOrdering Facility: [facility] Address: [address] [place] [address] Performed By: #### 5 7021-8 ####[facility] LABORATORYIA [id number] [place] [address] [place] Monocytes (Bld) [#/Vol] 0.68 10*3/uL Normal <0.87 [facility] Comment on above: Order Comment: Speci men Type: BLOOD SPECIMENOrdering Facility: [facility] Address: [address] [place] [address] Performed By: #### 5 7021-8 ####[facility]PITALIA [id number] [place] [address] [place] Monocytes/100 WBC (Bld) 8.1 % Normal [facility] Comment on above: Order Comment: Speci men Type: BLOOD SPECIMENOrdering Facility: [facility] Address: [address] [place] [address] Performed By: #### 5 7021-8 ####[facility]ITALIA [id number] [place] [address] [place] Neutrophils (Bld) [#/Vol] 5.57 10*3/uL Normal 1.45-7.50 [facility] Comment on above: Order Comment: Speci men Type: BLOOD SPECIMENOrdering Facility: [facility] Address: [address] [place], [place] [address] Performed By: #### 5 7021-8 ####[facility]ITALIA [id number] [place] [address] [place] Neutrophils/100 WBC (Bld) 65.9 % Normal [facility] Comment on above: Order Comment: Speci men Type: BLOOD SPECIMENOrdering Facility: [facility] Address: [address] [place], [place] [address] Performed By: #### 5 7021-8 ####[facility] LABORATORYIA [id number] [facility] [place] [address] [place] Nucleated RBC (Bld) [#/Vol] 10*3/uL Normal <0.01 [facility] Comment on above: Order Comment: Speci men Type: BLOOD SPECIMENOrdering Facility: [facility] Address: [address] [place] [address] Performed By: #### 5 7021-8 ####[facility]OSPITALIA [id number] [place] [address] [place] Nucleated RBC/100 WBC (Bld) [Ratio] 0.0 /100 WBC Normal [facility] Comment on above: Order Comment: Speci men Type: BLOOD SPECIMENOrdering Facility: [facility] Address: [address] [place] [address] Performed By: #### 5 7021-8 ####[facility]PITALIA [id number] [place] [address] [place] Platelet mean volume (Bld) [Entitic vol] 9.2 fL Normal 9.0-12.7 [facility] Comment on above: Order Comment: Speci men Type: BLOOD SPECIMENOrdering Facility: [facility] Address: [address] [place] [address] Performed By: #### 5 7021-8 ####[facility]PITALIA [id number] [place] [id number] [place] Platelets (Bld) [#/Vol] 260 10*3/uL Normal 150-400 [facility] Comment on above: Order Comment: Speci men Type: BLOOD SPECIMENOrdering Facility: [facility] Address: [address] [place], [place] [address] Performed By: #### 5 7021-8 ####[facility] LABORATORYIA [id number] [place] [address] [place] RBC (Bld) [#/Vol] 4.81 10*6/uL Normal 4.20-6.00 [facility] Comment on above: Order Comment: Speci rae Type: BLOOD SPECIMENOrdering Facility: [facility] Address: [address] [place] [address] Performed By: #### 5 7021-8 ####[facility]ORATORYCLIA [id number] [place] [address] [place] WBC (Bld) [#/Vol] 8.44 10*3/uL Normal 3.70-11.00 [facility] Comment on above: Order Comment: Walter rae Type: BLOOD SPECIMENOrdering Facility: [facility] Address: [address] [place] [address] Performed By: #### 5 7021-8 ####[facility]ORATORYCLIA [id number] [place] [address] [facility] [place] CT NECK SOFT TISSUE W IVCONo n 02-26-2022 CT NECK SOFT TISSUE W IVCON * * *Final Report* * * DATE OF EXAM: Feb 26 2022 12:16PM [facility] 0013 - CT NECK SOFT TISSUE W IVCON / PROCEDURE REASON: Vocal cord nodule or polyp * * * * Physician Interpretation * * * * CT NECK SOFT TISSUE W IVCON Clinical history provided by the ordering clinician via order question and clinical decision support entries: Vocal cord nodule or polyp. History obtained from the electronic medical record: 61-year-old male with history of sleep apnea presenting to the emergency department with one month history of shortness of breath. Recent ENT visit with plans for outpatient neck CT due to throat feeling swollen as well as sleep apnea. 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 No airway narrowing. Comparison: 09/03/[address] Technique: A series of contiguous helical scans were performed from the skull base to the aortic arch following bolus injection of nonionic contrast: Contrast: Omnipaque 300. Contrast Dose: 70 cc Route of Administration: IV CT Radiation dose: Integrated Dose-length product (DLP) for this visit = 574 mGy*cm. CT Dose Reduction Employed: Automated exposure control (AEC) RESULT: Postoperative change: None apparent. Suprahyoid Neck: Nasopharynx and oropharynx appear normal. Parapharyngeal tissue planes are preserved. Oral cavity and floor of mouth appear normal within constraints of artifact from dental amalgam. Punctate nonobstructive calcification in the left parotid gland. Unremarkable appearance of the right parotid gland. Normal appearance of the submandibular glands. Jitterbug Operator spaces appear normal. Infrahyoid Neck: Unremarkable appearance of the hypopharynx. No definitive correlates for the findings on prior laryngoscopy within the constraints of the modality. No clear nodularity or mass. Unremarkable appearance of the trachea and partially imaged mainstem bronchi. Imaged upper esophagus is unremarkable. Thyroid gland is homogeneous without evidence of discrete nodule. Lymph Nodes: No cervical adenopathy by size criteria. Scattered normal sized lymph nodes without suspicious morphologic features. Carotid Space: No masses. Patent extracranial carotid systems and internal jugular veins bilaterally. Orbits and Skull Base: Orbital soft tissue planes are preserved. No evidence of an osteolytic or osteoblastic process in the skull base. The paranasal sinuses are clear. The mastoid air cells and middle ear cavities are clear. Rightward deviation of the mid nasal septum with prominent rightward directed nasal septal spur and slight sigmoid curvature more anteriorly otherwise. Imaged intracranial contents: No abnormal intracranial enhancement, mass effect, or hydrocephalus. Cervical spine and remaining osseous structures: Alignment is normal. Degenerative changes in the cervical spine with disc osteophyte complex formation most pronounced at C6-C7 without significant associated spinal canal narrowing. Neuroforaminal stenosis is most pronounced and severe on the left and moderate on the right at C6-C7 secondary to uncovertebral and facet hypertrophy. No discrete osteolytic or osteoblastic process. Lung apices: Posterior dependent atelectatic changes without focal consolidation or mass. Stained Glass Glazier (topogram) images: Noncontributory IMPRESSION: No cervical mass, fluid collection, or lymphadenopathy. No significant airway narrowing. Firer Boiler: PSCB Transcribe Date/Time: Feb 26 2022 12:35P Dictated by : AARON ELLISON MD This examination was interpreted and the report reviewed and electronically signed by: AARON ELLISON MD on Feb 26 2022 12:52PM EST [id number] Normal [facility] Comprehensive metabolic 2000 panelon 02-26-2022 Albumin [Mass/Vol] 4.8 g/dL Normal 3.9-4.9 [facility] Comment on above: Order Comment: Speci men Type: BLOOD SPECIMENOrdering Facility: [facility] Address: [address] [place], [place] [address] Performed By: #### 2 4323-8, 72086-7, 74235-0 ####[facility] LABORATORYCLIA [id number] [place] [address] [place] ALP [Catalytic activity/Vol] 104 U/L Normal 38-113 [facility] Comment on above: Order Comment: Speci men Type: BLOOD SPECIMENOrdering Facility: [facility] Address: [address] [place], [place] [address] Performed By: #### 2 4323-8, 84809-2, 34686-3 ####[facility]PITALIA [id number] [place] [address] [place] ALT [Catalytic activity/Vol] 49 U/L Normal 10-54 [facility] Comment on above: Order Comment: Speci men Type: BLOOD SPECIMENOrdering Facility: [facility] Address: [address] [place], [place] [address] Performed By: #### 2 4323-8, 07943-2, 83145-0 ####[facility]OSPITALIA [id number] [place] [address] [place] Anion gap [Moles/Vol] 12 mmol/L Normal 9-18 [facility] Comment on above: Order Comment: Speci men Type: BLOOD SPECIMENOrdering Facility: [facility] Address: [address] [place], [place] [address] Performed By: #### 2 4323-8, 77293-3, 33004-0 ####[facility]ORATORYIA [id number] [place] [address] [place] AST [Catalytic activity/Vol] 59 U/L High 14-40 [facility] Comment on above: Order Comment: Speci men Type: BLOOD SPECIMENOrdering Facility: [facility] Address: [address] [place], [place] [address] Performed By: #### 2 4323-8, 40857-1, 17937-4 ####[facility]ORATORYCLIA [id number] [facility] [place] [address] [place] Bilirubin [Mass/Vol] 0.6 mg/dL Normal 0.2-1.3 [facility] Comment on above: Order Comment: Speci men Type: BLOOD SPECIMENOrdering Facility: [facility] Address: [address] [place] [address] Performed By: #### 2 4323-8, , 30933-7 ####[facility]ATORYCLIA [id number] [place] [address] [place] Calcium [Mass/Vol] 9.9 mg/dL Normal 8.5-10.2 [facility] Comment on above: Order Comment: Speci men Type: BLOOD SPECIMENOrdering Facility: [facility] Address: [address] [place] [address] Performed By: #### 2 4323-8, , 70667-8 ####[facility]CLIA [id number] [place] [address] [place] Chloride [Moles/Vol] 103 mmol/L Normal 97-105 [facility] Comment on above: Order Comment: Speci men Type: BLOOD SPECIMENOrdering Facility: [facility] Address: [address] [place] [address] Performed By: #### 2 4323-8, , 33303-0 ####[facility]ORATORYIA [id number] [facility] [place] [address] [place] CO2 [Moles/Vol] 26 mmol/L Normal 22-30 [facility] Comment on above: Order Comment: Speci men Type: BLOOD SPECIMENOrdering Facility: [facility] Address: [address] [place] [address] Performed By: #### 2 4323-8, 30755-8, 63874-6 ####[facility]ORATORYCLIA [id number] [facility] [place] [address] [facility] Creatinine [Mass/Vol] 0.81 mg/dL Normal 0.73-1.22 [facility] Comment on above: Order Comment: Walter mcbride Type: BLOOD SPECIMENOrdering Facility: [facility] Address: [address] [place] [id number] Performed By: #### 2 4323-8, 66892-4, 83647-3 ####[facility]ORATORYCLIA [id number] [facility].[place] [id number] [facility] ESTIMATED GLOMERULAR FILTRATION RATE 102 mL/min/1.73m??? Normal >=60 [facility] Comment on above: Order Comment: Walter mcbride Type: BLOOD SPECIMENOrdering Facility: [facility] Address: [address] [place], [place] [address] Result Comment: Juanita mated Glomerular Filtration Rate (eGFR) is calculated using the 2020 CKD-EPI creatinine equation. This equation utilizes serum creatinine, sex, and age as parameters. The creatinine assay has traceable calibration to isotope dilution-mass spectrometry. Refer to KDIGO guidelines for clinical interpretation. In patients with unstable renal function, e.g. those with acute kidney injury, the eGFR may not accurately reflect actual GFR. Performed By: #### 2 4323-8, 15050-1, 67653-2 ####[facility]ORATORYCLIA [id number] [place] [id number] [place] [facility] Glucose [Mass/Vol] 98 mg/dL Normal 74-99 [facility] Comment on above: Order Comment: Walter mcbride Type: BLOOD SPECIMENOrdering Facility: [facility] Address: [address] Result Comment: The [place] Diabetes Association (ADA) provides guidance for cutoff values for fasting glucose and random glucose. The ADA defines fasting as no caloric intake for at least 8 hours. Fasting plasma glucose results between 100 to 125 mg/dL indicate increased risk for diabetes (prediabetes). Fasting plasma glucose results greater than or equal to 126 mg/dL meet the criteria for diagnosis of diabetes. In the absence of unequivocal hyperglycemia, results should be confirmed by repeat testing. In a patient with classic symptoms of hyperglycemia or hyperglycemic crisis, random plasma glucose results greater than or equal to 200 mg/dL meet the criteria for diagnosis of diabetes. Reference: Standards of Medical Care in Diabetes 2016, [place] [employer] Association. Diabetes Care. 2016.39(Suppl 1). Performed By: #### 2 4323-8, 38602-5, 30722-8 ####[facility]ORATORYCLIA [id number] [place] [address] [place] Potassium [Moles/Vol] 3.4 mmol/L Low 3.7-5.1 [facility] Comment on above: Order Comment: Speci men Type: BLOOD SPECIMENOrdering Facility: [facility] Address: [address] Performed By: #### 2 4323-8, , 63953-8 ####[facility]ENTERCLIA [id number] [place] [address] [place] Protein [Mass/Vol] 7.6 g/dL Normal 6.3-8.0 [facility] Comment on above: Order Comment: Speci men Type: BLOOD SPECIMENOrdering Facility: [facility] Address: [address] Performed By: #### 2 4323-8, , 05372-4 ####[facility]PITALIA [id number] [place] [address] [place] Sodium [Moles/Vol] 141 mmol/L Normal 136-144 [facility] Comment on above: Order Comment: Speci men Type: BLOOD SPECIMENOrdering Facility: [facility] Address: [address] Performed By: #### 2 4323-8, 82716-4, 64767-3 ####[facility]ORATORYIA [id number] [place] [address] [place] Urea nitrogen [Mass/Vol] 15 mg/dL Normal 9-24 [facility] Comment on above: Order Comment: Speci men Type: BLOOD SPECIMENOrdering Facility: [facility] Address: [address] Performed By: #### 2 4323-8, 54726-6, 30371-3 ####[facility]ORATORYCLIA [id number] [facility] [place] [address] [facility] D dimer FEU PPP-mCncon 02-26 Fibrin D-dimer FEU (PPP) [Mass/Vol] 460 ng/mL FEU Normal <500 [facility] Comment on above: Order Comment: Speci men Type: BLOOD SPECIMENOrdering Facility: [facility] Address: [address] [place] [address] Performed By: #### 4 8065-7 ####[facility]ORATORYCLIA [id number] [facility] [place] [address] [facility] ED NOTEon 02-26-2022 ED NOTE HNO ID: [id number] Author: Patricia Blas RN Service: ? Author Type: Registered Nurse Type: ED Notes Filed: 02/26/2022 2:02 PM Note Text: Dr. Rojas made aware of patient BP being 178/120. Per provider, okay to DC patient. [facility] ED NOTE HNO ID: [id number] Author: Ericka Varner RN Service: Nursing Author Type: Registered Nurse Type: ED Notes Filed: 02/26/2022 1:02 PM Note Text: PT's recent BP 191/123. Dr. Kathy Rojas made aware. [facility] ED NOTE HNO ID: [id number] Author: Patricia Blas RN Service: ? Author Type: Registered Nurse Type: ED Notes Filed: 02/26/2022 12:08 PM Note Text: Patient hit call light and asking this RN for nicotine patch and pain medication for chronic pain, provider made aware. [facility] ED NOTE HNO ID: [id number] Author: Ericka Varner RN Service: Nursing Author Type: Registered Nurse Type: ED Notes Filed: 02/26/2022 11:38 AM Note Text: PT independently ambulated to [facility] ED NOTE HNO ID: [id number] Author: Ericka Varner RN Service: Nursing Author Type: Registered Nurse Type: ED Notes Filed: 02/26/2022 11:02 AM Note Text: PT hypertensive 163/111. Dr. Kathy Rojas made aware. [facility] ED NOTE HNO ID: [id number] Author: Ericka Varner RN Service: Nursing Author Type: Registered Nurse Type: ED Notes Filed: 02/26/2022 9:53 AM Note Text: Xray at bedside [facility] ED NOTE HNO ID: [id number] Author: Patricia Blas RN Service: ? Author Type: Registered Nurse Type: ED Notes Filed: 02/26/2022 9:53 AM Note Text: Patient affirms triage note. Patient states that he has been increasingly SOB for the past few weeks. Patient noting history of sleep apnea, does not wear CPAP at night. Patient noting frequent anxiety attacks when he wakes up due to not being able to breath. Patient noting intermittent chest pain as well. Patient with cardiac history. Patient also states that he recently saw ENT and is suppose to get an outpatient CT of neck due to his throat feeling swollen and due to sleep apnea. Patient noting mild headache, no new leg swelling, and noting bloating in abdomen. [facility] ED NOTE HNO ID: [id number] Author: Patricia Blas RN Service: ? Author Type: Registered Nurse Type: ED Notes Filed: 02/26/2022 9:34 AM Note Text: Patient ambulated back from waiting area with even and steady gait. [facility] ED NOTE HNO ID: [id number] Author: Araceli Nash Service: ? Author Type: Family Readiness Support Assistant and Animal Trapper Type: ED Notes Filed: 02/26/2022 9:33 AM Note Text: Patient presents to ED with c/o SOB x 1 month. Patient states he has hx of sleep apnea and feels that he struggles to catch his breath. Patient also expresses concern about anxiety at this time. [facility] ED PROV NOTEon 02-26-2022 ED PROV NOTE HNO ID: [id number] Author: Kathy Rojas MD Service: Emergency Medicine Author Type: Physician Type: ED Provider Notes Filed: 02/26/2022 4:09 PM Note Text: ED Provider Note Patient Name: José Rojas : 1960 SERVICE DATE: 02/26/22 History Patient presents with: Shortness of Breath HPI This is a 61-year-old male with past medical history listed below that includes CAD, fibromyalgia, hypertension and hyperlipidemia who presents to the ED with a chief complaint of shortness of breath for months. He states he has noticed himself becoming more short of breath, particularly with exertion. He also intermittently gets chest pain the last about 30 seconds and spontaneously resolves. He states it does not feel like when he had his heart attack. He states that he feels his abdomen is slightly larger but he has had no leg swelling. He recently had a foot procedure within the past month for which she was under general anesthesia. He states that sometimes he gets chest pain with deep inspiration but he thinks this may be secondary to a chronic cough which is productive of clearish, bubbly sputum. He denies any associated fevers or chills. No history of DVT/PE. He states that he has seen ENT because they are concerned about a mass on his larynx and they are requesting that he get a CT of his neck performed soon and he has yet to have this done and is asking if he could possibly do this for him here today. PAST MEDICAL HISTORY Diagnosis Date Acquired hallux limitus of left foot Acute NM (HCC) 08/2007 angina - bare metal stent x1 - to see Dr Ortiz 08/30 Arthritis of right hip inj helps - needs THR, 06/15/17:insurance did not approve Back pain 10/14/2015 pain management rec CPRP - do not refill percocet - 07/08/17:send to [facility] Chronic pain of toe of left foot Depression zoloft spinning couldn't get going, prozac creating action (act on neighbor) - celexa ETOH abuse Fibromyalgia 05/22/20:saw pain psychologist, used mental control to ignore pains GERD (gastroesophageal reflux disease) aciphex Hematuria 2019 saw urology in [place] Hiatal hernia History of PTCA Dr Germain HTN (hypertension) lisinopril Hyperlipidemia lipitor Lung nodule 10/16/2014 6 mm - recheck at 1 yr and 2 yrs NEGATIVE HISTORY OF No pn,tb,ca,dm Spinal stenosis 1995 accident went to PT - neck, mid back, right leg, 10/09, percocet / tid - Dr Brooks (pain management) - tried fentayl, methadone Testicular lump s/p removal, benign - testosterone - Dr Valentine PAST SURGICAL HISTORY Procedure Laterality Date APPENDECTOMY 1983 PAST SURGICAL HISTORY OF 2008 one coronary stent/heart cath with stent PAST SURGICAL HISTORY OF 08/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 PAST SURGICAL HISTORY OF colonoscopy PAST SURGICAL HISTORY OF Left arthroscopy left knee PAST SURGICAL HISTORY OF Right shoulder and bicep PAST SURGICAL HISTORY OF Right hip PAST SURGICAL HISTORY OF Left toe FAMILY HISTORY Problem Relation Age of Onset other (back pain) Father neck spurs Heart Mother 45 NM, arthritis other (back pain) Brother None Sister x2, FM Social History Tobacco Use Smoking status: Every Day Packs/day: 0.50 Years: 10.00 Pack years: 5.00 Types: Cigarettes Smokeless tobacco: Current Tobacco comments: Smokes less than a pack a day, one and off quitter Substance and Sexual Activity Alcohol use: Yes Alcohol/week: 14.0 standard drinks Types: 14 Cans of Beer (12oz) per week Comment: 2 shots a day, bourbon at 7 Drug use: No Sexual activity: Not on file Comment: not asked ALLERGIES No Known Allergies Review of Systems Constitutional: Negative for chills, fatigue and fever. HENT: Negative for rhinorrhea, sinus pain and sore throat. Eyes: Negative for photophobia and visual disturbance. Respiratory: Positive for cough and shortness of breath. Negative for wheezing. Cardiovascular: Positive for chest pain. Negative for palpitations and leg swelling. Gastrointestinal: Positive for abdominal distention. Negative for abdominal pain, diarrhea, nausea and vomiting. Genitourinary: Negative for dysuria, frequency, hematuria and urgency. Musculoskeletal: Negative for back pain, neck pain and neck stiffness. Skin: Negative for color change, rash and wound. Neurological: Negative for dizziness, weakness, numbness and headaches. Psychiatric/Behavioral: Negative for behavioral problems and confusion. The patient is nervous/anxious. Physical Exam Vitals BP Pulse Temp Temp src Resp SpO2 Weight Height 02/26/22 0933 02/26/2233 02/26/22 0933 02/26/22 0933 02/26/22 0933 02/26/22 0933 02/26/22 0929 -- (!) 181/120 (!) 95 36.4 ?C (97.5 ?F) Oral 18 100 % 97.5 kg (215 lb) Physical Exam Vitals and nursing note reviewed. Constitutional: General: He is not in acute distress. Appearance: He is not ill-appearing (more content not included)... [facility] EKGon 02-26-2022 Electrocardiogram Ventricular Rate : 9 8 BPM Atrial Rate : 98 BPM P-R Interval : 149 ms QRS Duration : 90 ms Q-T Interval : 354 ms QTC Calculation(Bazett) : 452 ms Calculated P Homer : 40 degrees Calculated R Homer : 74 degrees Calculated T Homer : 10 degrees Sinus rhythm Probable left atrial enlargement Borderline T abnormalities, inferior leads Borderline ECG no stemi 947 Confirmed by CARLOS EDUARDO VARNER MD ([id number]), features editor Ayala Paez ([id number]) on 02/27/2022 10:34:04 AM NAME : JOSÉ ROJAS PID : [id number] : 1960 Gender : Male Race : ORD : Procedure Date : Feb 26 2022 09:42:00 Edit Date : Feb 27 2022 10:34:07 Diagnosis: Sinus rhythm Probable left atrial enlargement Borderline T abnormalities, inferior leads Borderline ECG no stemi 947 Confirmed by CARLOS EDUARDO VARNER MD ([id number]), features editor Ayala Paez ([id number]) on 02/27/2022 10:34:04 AM Test Reason : Location : [address] : [place] [address] Overread By : CARLOS EDUARDO VARNER MD Edited By : Aayla Paez Referred By : , Acquired by : [id number], [facility] Fibrin D-dimer FEU (PPP) [Ma ss/Vol]on 02-26-2022 D DIMER AGE-RELATED CUTOFF 590 ng/mL U [facility] Comment on above: Order Comment: Walter mcbride Type: BLOOD SPECIMENOrdering Facility: [facility] Address: [address] [place] [id number] Performed By: #### 4 8065-7 ####[facility] LABORATORYCLIA [id number] [facility] [place] [address] [place] Magnesium SerPl-mCncon 02-26 Magnesium [Mass/Vol] 1.9 mg/dL Normal 1.7-2.3 [facility] Comment on above: Order Comment: Walter mcbride Type: BLOOD SPECIMENOrdering Facility: [facility] Address: [address] [place] [id number] Performed By: #### 2 4323-8, 26881-4, 52064-5 ####[facility]PITAL[facility] [id number] [facility] [place] [address] [facility] NT-proBNP [facility] 02-26 Natriuretic peptide.B prohormone N-Terminal [Mass/Vol] 72 pg/mL Normal <125 [facility] Comment on above: Order Comment: Speci men Type: BLOOD SPECIMENOrdering Facility: [facility] Address: [address] Performed By: #### 2 4323-8, 23963-7, 23538-1 ####[facility]ITAL[facility] [id number] [facility].[address] OF [facility] SARS-CoV-2 RNA Resp Ql KAVITA+p robeon 02-26-2022 SARS-CoV-2 (COVID-19) RNA KAVITA+probe Ql (Resp) COVID 19 RESULT: SARS-CoV-2 (Agent of COVID-19) Not Detected by RT-PCR or equivalent method. This test has been authorized by FDA under an Emergency Use Authorization (EUA). [facility] Comment on above: Performed By: #### 9 4500-6 ####[facility] [id number] [address] [place] XR CHEST 1V FRONTAL PORTon 1 XR CHEST 1V FRONTAL PORT * * *Final Report* * * DATE OF EXAM: Feb 26 2022 9:59AM VHX 5376 - XR CHEST 1V FRONTAL PORT / PROCEDURE REASON: Chest pain, nonspecific * * * * Physician Interpretation * * * * EXAMINATION: CHEST RADIOGRAPH (PORTABLE SINGLE VIEW AP) Exam Date/Time: 02/26/2022 9:59 AM CLINICAL HISTORY: Chest pain, nonspecific MQ: XCPR_5 Comparison: Chest x-ray 12/11/2021 RESULT: Lines, tubes, and devices: None Lungs and pleura: No pneumothorax, pleural effusions or focal consolidation Cardiomediastinal silhouette: Stable cardiomediastinal silhouette. Other: . IMPRESSION: No acute process Firer Boiler: [facility] Transcribe Date/Time: Feb 26 2022 10:25A Dictated by : GISELA BEAVERS MD This examination was interpreted and the report reviewed and electronically signed by: GISELA BEAVERS MD on Feb 26 2022 10:26AM EST [id number] [facility] XR FOOT GENERAL 3V AP/LAT/OB L RIGHTon 02-09-2022 [facility] No Panel Informationon 12-11 [facility] XR CHEST 2V FRONTAL/LATon XR CHEST 2V FRONTAL/LAT * * *Final Report* * * DATE OF EXAM: Dec 11 2021 2:28PM VHX 5291 - XR CHEST 2V FRONTAL/LAT / PROCEDURE REASON: Cough * * * * Physician Interpretation * * * * EXAMINATION: CHEST RADIOGRAPH (2 VIEW FRONTAL and LATERAL) CLINICAL HISTORY: Cough MQ: XC2_6 EXAM DATE/TIME: 12/11/2021 2:28 PM COMPARISON: 09/21/2021 RESULT: Lines, tubes, and devices: None. Lungs and pleura: No consolidation. No lung mass. No pleural effusion. No pneumothorax. Cardiomediastinal silhouette: Normal cardiomediastinal silhouette. Bones and soft tissues: Unremarkable. IMPRESSION: No acute radiographic abnormality. Firer Boiler[facility] Transcribe Date/Time: Dec 11 2021 3:00P Dictated by : CHARLOTTE LEOS MD This examination was interpreted and the report reviewed and electronically signed by: CHARLOTTE LEOS MD on Dec 11 2021 3:00PM EST [id number] [facility] XR FOOT 3V AP/LAT/OBL RTon 0 12-11-2021 XR FOOT 3V AP/LAT/OBL RT * * *Final Report* * * DATE OF EXAM: Dec 11 2021 2:28PM VHX 5337 - XR FOOT 3V AP/LAT/OBL RT / PROCEDURE REASON: Pain * * * * Physician Interpretation * * * * HISTORY: Pain . fall, pain big toe TECHNIQUE: XR FOOT 3V AP/LAT/OBL RT COMPARISON: 08/29/2020 RESULT: Moderate to marked first MTP degenerative arthritis with joint space narrowing and osteophytes. Pes planus deformity. Small dorsal osteophytes at the talonavicular joint. Plantar calcaneal spur. Small calcification the posterior soft tissues adjacent to the tibiotalar joint probably an intra-articular body. Small tibiotalar osteophytes. Joint spaces and alignment otherwise normal. No evidence of a fracture. Normal soft tissues. No other significant abnormality. IMPRESSION: NO ACUTE OSSEOUS ABNORMALITY DEGENERATIVE CHANGES DESCRIBED Firer Boiler: L[facility] Transcribe Date/Time: Dec 11 2021 3:10P Dictated by : CHANCE JAY MD This examination was interpreted and the report reviewed and electronically signed by: CHANCE JAY MD on Dec 11 2021 3:12PM EST [id number] [facility] XR CHEST 1V FRONTAL PORTon 0 08-24-2021 [facility] COLONOSCOPY SCREENINGon - [facility] EGD DIAGNOSTICon 08-12-2021 [facility] XR Knee - left 4 Viewson IMPRESSION: OSTEOARTHRITIS Firer Boiler: LASHAE Transcribe Date/Time: Oct 24 2020 2:05P Dictated by : MIRNA MÉNDEZ MD This examination was interpreted and the report reviewed and electronically signed by: MIRNA MÉNDEZ MD on Oct 24 2020 2:05PM EST DIVISION OF RADIOLOGY * * *Final Report* * * DATE OF EXAM: Oct 24 2020 1:45PM LZX 5202 - XR KNEE 4V AP/PA BOTH+LAT/TRENA LT / PROCEDURE REASON: Pain * * * * Physician Interpretation * * * * HISTORY: Pain . LEFT KNEE PAIN/ STRAIN/ TECHNIQUE: XR KNEE 4V AP/PA BOTH+LAT/TRENA LT Laterality: LEFT Views: 3 COMPARISON: 10/02/2019 RESULT: Mild to moderate medial compartment osteoarthritis. Small patellar enthesophyte. No other significant abnormality. DIVISION OF RADIOLOGY Provider, Estela Smith - 10/24/2020 * * *Final Report* * * DATE OF EXAM: Oct 24 2020 1:45PM MONTSE 5202 - XR KNEE 4V AP/PA BOTH+LAT/TRENA LT / PROCEDURE REASON: Pain * * * * Physician Interpretation * * * * HISTORY: Pain . LEFT KNEE PAIN/ STRAIN/ TECHNIQUE: XR KNEE 4V AP/PA BOTH+LAT/TRENA LT Laterality: LEFT Views: 3 COMPARISON: 10/02/2019 RESULT: Mild to moderate medial compartment osteoarthritis. Small patellar enthesophyte. No other significant abnormality. IMPRESSION IMPRESSION: OSTEOARTHRITIS Firer Boiler: [facility] Transcribe Date/Time: Oct 24 2020 2:05P Dictated by : MIRNA MÉNDEZ MD This examination was interpreted and the report reviewed and electronically signed by: MIRNA MÉNDEZ MD on Oct 24 2020 2:05PM EST [facility] Radiology Study observation (narrative) [facility] XR Knee - left 4 ViewsOrdere d By: Estela Provider on 10-24-2020 [facility] Provider Letteron 10-06-2020 Provider Letter October 06, 2020 October 06, 2020 JOSÉ ROJAS [address] [place] [address] JOSÉ ROJAS 1960 Dear Mr. Rojas, You missed your scheduled appointment with Dr. Prater on 10/06/2020 and the purpose of this letter is to inform you of our *No Show Policy*. Our appointment slots fill rapidly and when we have a no show appointment that time is lost. We could have used that time slot to care for a patient who needed to see one of our providers. Therefore, we ask that you call 24 hours in advance to cancel your appointment. After your second no show within a twelve (12) month period, you will be assessed a $30 charge. This policy is in place so that we can meet the needs of all of our patients and we do appreciate your understanding. Sincerely, [facility] [address] [place] [address] [facility] XR Foot - right AP and Later al and obliqueon 08-29-2020 IMPRESSION: NO ACUTE OSSEOUS ABNORMALITY DEGENERATIVE CHANGES DESCRIBED Firer Boiler: LASHAE Transcribe Date/Time: Aug 29 2020 2:45P Dictated by : CHANCE JAY MD This examination was interpreted and the report reviewed and electronically signed by: CHANCE JAY MD on Aug 29 2020 2:56PM [facility] DIVISION OF RADIOLOGY * * *Final Report* * * DATE OF EXAM: Aug 29 2020 2:07PM LZX 5337 - XR FOOT 3V AP/LAT/OBL RT / PROCEDURE REASON: Pain * * * * Physician Interpretation * * * * HISTORY: Pain . PAIN TO RIGHT GREAT TOE TECHNIQUE: XR FOOT 3V AP/LAT/OBL RT Laterality: RIGHT Number of different views (projections): 3 COMPARISON: None RESULT: Pes planus. Mild to moderate first MTP joint degenerative arthritis with joint space narrowing and osteophytes. Mild talonavicular degenerative arthritis with dorsal osteophytes. Joint spaces and alignment otherwise normal. Small osteophytes in the tibiotalar joint. Small ossification in the posterior soft tissues of the tibiotalar joint probably an intra-articular body. No evidence of a fracture. Retrocalcaneal spur. Normal soft tissues. No other significant abnormality. DIVISION OF RADIOLOGY Provider, [facility] - 08/29/2020 * * *Final Report* * * DATE OF EXAM: Aug 29 2020 2:07PM LZX 5337 - XR FOOT 3V AP/LAT/OBL RT / PROCEDURE REASON: Pain * * * * Physician Interpretation * * * * HISTORY: Pain . PAIN TO RIGHT GREAT TOE TECHNIQUE: XR FOOT 3V AP/LAT/OBL RT Laterality: RIGHT Number of different views (projections): 3 COMPARISON: None RESULT: Pes planus. Mild to moderate first MTP joint degenerative arthritis with joint space narrowing and osteophytes. Mild talonavicular degenerative arthritis with dorsal osteophytes. Joint spaces and alignment otherwise normal. Small osteophytes in the tibiotalar joint. Small ossification in the posterior soft tissues of the tibiotalar joint probably an intra-articular body. No evidence of a fracture. Retrocalcaneal spur. Normal soft tissues. No other significant abnormality. IMPRESSION IMPRESSION: NO ACUTE OSSEOUS ABNORMALITY DEGENERATIVE CHANGES DESCRIBED Firer Boiler[facility] Transcribe Date/Time: Aug 29 2020 2:45P Dictated by : CHANCE JAY MD This examination was interpreted and the report reviewed and electronically signed by: CHANCE JAY MD on Aug 29 2020 2:56PM EST [facility] Radiology Study observation (narrative) [facility] XR Foot - right AP and Later al and obliqueOrdered By: Ccf Provider on 08-29-2020 [facility] No Panel Informationon 08-22 [facility] XR HIP GENERAL 3V PELV/AP/LA T RTon 05-23-2020 [facility] XR Hand - bilateral PA and L ateral and Obliqueon 05-15-2020 IMPRESSION: Mild to moderate osteoarthritis of both hands, most pronounced at the bilateral first CMC joints. Firer Boiler: [facility] Transcribe Date/Time: May 15 2020 10:44A Dictated by : ANN ROBERTSON MD This examination was interpreted and the report reviewed and electronically signed by: ANN ROBERTSON MD on May 15 2020 10:46AM [facility] DIVISION OF RADIOLOGY * * *Final Report* * * DATE OF EXAM: May 15 2020 9:52AM LZX 5556 - XR HAND 3V PA/LAT/OBL BENEDICTO / PROCEDURE REASON: multiple diagnoses * * * * Physician Interpretation * * * * EXAMINATION: XR HAND 3V PA/LAT/OBL BENEDICTO PATIENT/TECHNOLOGIST PROVIDED HISTORY: bilateral hand pain CLINICAL INFORMATION ( PROVIDED BY ORDERING CLINICIAN) : Bilateral hand pain Bilateral hand pain TECHNIQUE: XR HAND 3V PA/LAT/OBL BENEDICTO Laterality: BILATERAL Number of different views (projections): 3 each M: XB_1 COMPARISON: Right hand radiograph 12/14/2018 RESULT: No acute fracture or dislocation. There is moderate degenerative change at the bilateral first CMC joint and mild degenerative change triscaphe joints. Mild degenerative change also noted at the right second through fourth DIP joints. Findings in the right hand are without significant interval progression. No focal osseous erosion or chondrocalcinosis. Reactive cyst in the mid scaphoid is similar to the prior exam. No other significant abnormality. DIVISION OF RADIOLOGY Provider, [facility] - 05/15/2020 * * *Final Report* * * DATE OF EXAM: May 15 2020 9:52AM LZX 5556 - XR HAND 3V PA/LAT/OBL BENEDICTO / PROCEDURE REASON: multiple diagnoses * * * * Physician Interpretation * * * * EXAMINATION: XR HAND 3V PA/LAT/OBL BENEDICTO PATIENT/TECHNOLOGIST PROVIDED HISTORY: bilateral hand pain CLINICAL INFORMATION ( PROVIDED BY ORDERING CLINICIAN) : Bilateral hand pain Bilateral hand pain TECHNIQUE: XR HAND 3V PA/LAT/OBL BENEDICTO Laterality: BILATERAL Number of different views (projections): 3 each M: XB_1 COMPARISON: Right hand radiograph 12/14/2018 RESULT: No acute fracture or dislocation. There is moderate degenerative change at the bilateral first CMC joint and mild degenerative change triscaphe joints. Mild degenerative change also noted at the right second through fourth DIP joints. Findings in the right hand are without significant interval progression. No focal osseous erosion or chondrocalcinosis. Reactive cyst in the mid scaphoid is similar to the prior exam. No other significant abnormality. IMPRESSION IMPRESSION: Mild to moderate osteoarthritis of both hands, most pronounced at the bilateral first CMC joints. Firer Boiler: [facility] Transcribe Date/Time: May 15 2020 10:44A Dictated by : ANN ROBERTSON MD This examination was interpreted and the report reviewed and electronically signed by: ANN ROBERTSON MD on May 15 2020 10:46AM EST [facility] Radiology Study observation (narrative) [facility] XR Hand - bilateral PA and L ateral and ObliqueOrdered By: Ccf Provider on 05-15-2020 [facility] XR FOOT GENERAL 3V AP/LAT/OB L LTon 05-05-2020 [facility] CBCon 04-08-2020 Absolute nRBC <0.01 Normal <0.01 [facility] Comment on above: Performed By: #### C MP, CBC, ALCO #### [place] [address] Erythrocyte distribution width (RBC) [Ratio] 13.5 % Normal 11.5-15.0 [facility] Comment on above: Performed By: #### C MP, CBC, ALCO #### [place] [address] Hematocrit (Bld) [Volume fraction] 49.3 % Normal 39.0-51.0 [facility] Comment on above: Performed By: #### C MP, CBC, ALCO #### [place] [address] Hemoglobin (Bld) [Mass/Vol] 16.6 g/dL Normal 13.0-17.0 [facility] Comment on above: Performed By: #### C MP, CBC, ALCO #### [place] [address] MCH (RBC) [Entitic mass] 32.5 pG Normal 26.0-34.0 [facility] Comment on above: Performed By: #### C MP, CBC, ALCO #### [place] [address] MCHC (RBC) [Mass/Vol] 33.7 g/dL Normal 30.5-36.0 [facility] Comment on above: Performed By: #### C MP, CBC, ALCO #### [place] [address] MCV (RBC) [Entitic vol] 96.7 fL Normal 80.0-100.0 [facility] Comment on above: Performed By: #### C MP, CBC, ALCO #### [place] [address] Platelet mean volume (Bld) [Entitic vol] 9.0 fL Normal 9.0-12.7 [facility] Comment on above: Performed By: #### C MP, CBC, ALCO #### [place] [address] Platelets (Bld) [#/Vol] 324 10*3/uL Normal 150-400 [facility] Comment on above: Performed By: #### C MP, CBC, ALCO #### [place] [address] RBC (Bld) [#/Vol] 5.10 10*6/uL Normal 4.20-6.00 [facility] Comment on above: Performed By: #### C MP, CBC, ALCO #### [place] [address] WBC (Bld) [#/Vol] 10.19 10*3/uL Normal 3.70-11.00 [facility] Comment on above: Performed By: #### C MP, CBC, ALCO #### [place] [address] Comp Metabolic Panelon 04-08 Albumin [Mass/Vol] 5.1 g/dL High 3.9-4.9 [facility] Comment on above: Performed By: #### C MP, CBC, ALCO #### [place] [address] ALP [Catalytic activity/Vol] 101 U/L Normal 38-113 [facility] Comment on above: Performed By: #### C MP, CBC, ALCO #### [place] [address] ALT [Catalytic activity/Vol] 27 U/L Normal 10-54 [facility] Comment on above: Performed By: #### C MP, CBC, ALCO #### [place] [address] Anion gap [Moles/Vol] 10 mmol/L Normal 9-18 [facility] Comment on above: Performed By: #### C MP, CBC, ALCO #### [place] [address] AST [Catalytic activity/Vol] 30 U/L Normal 14-40 [facility] Comment on above: Performed By: #### C MP, CBC, ALCO #### [place] [address] Bilirubin [Mass/Vol] 0.4 mg/dL Normal 0.2-1.3 [facility] Comment on above: Performed By: #### C MP, CBC, ALCO #### [place] [address] Calcium [Mass/Vol] 10.1 mg/dL Normal 8.5-10.2 [facility] Comment on above: Performed By: #### C MP, CBC, ALCO #### [place] [address] Chloride [Moles/Vol] 102 mmol/L Normal 97-105 [facility] Comment on above: Performed By: #### C MP, CBC, ALCO #### [place] [address] CO2 [Moles/Vol] 26 mmol/L Normal 22-30 [facility] Comment on above: Performed By: #### C MP, CBC, ALCO #### [place] [address] Creatinine [Mass/Vol] 0.80 mg/dL Normal 0.73-1.22 [facility] Comment on above: Performed By: #### C MP, CBC, ALCO #### [place] [address] eGFR- Amer. >60 Normal >60 [facility] Comment on above: Performed By: #### C MP, CBC, ALCO #### [place] [address] GFR/1.73 sq M predicted among non-blacks MDRD (S/P/Bld) [Vol rate/Area] mL/min/{1.73_m2} Normal >60 [facility] Comment on above: Result Comment: eGFR (Estimated GFR) Units of measure: mL/min/1.73 meters squared eGFR is derived from the reexpressed MDRD Study equation using the following parameters: serum creatinine, age, gender and race. The creatinine assay has been calibrated to be traceable to IDMS. An eGFR <60 mL/min/1.73m2 for >3 months is consistent with chronic kidney disease. Refer to KDOQI guidelines for clinical interpretation. In patients with unstable renal function, e.g. those with acute kidney injury, the eGFR may not accurately reflect actual GFR. Performed By: #### C MP, CBC, ALCO #### [place] [address] Glucose [Mass/Vol] 96 mg/dL Normal 74-99 [facility] Comment on above: Performed By: #### C MP, CBC, ALCO #### [place] [address] Potassium [Moles/Vol] 3.8 mmol/L Normal 3.7-5.1 [facility] Comment on above: Performed By: #### C MP, CBC, ALCO #### [place] [address] Protein [Mass/Vol] 7.8 g/dL Normal 6.3-8.0 [facility] Comment on above: Performed By: #### C MP, CBC, ALCO #### [place] [address] Sodium [Moles/Vol] 138 mmol/L Normal 136-144 [facility] Comment on above: Performed By: #### C MP, CBC, ALCO #### [place] [address] Urea nitrogen [Mass/Vol] 16 mg/dL Normal 9-24 [facility] Comment on above: Performed By: #### C MP, CBC, ALCO #### [place] [address] ED NOTEon 04-08-2020 ED NOTE HNO ID: [id number] Author: Carrie BrowneRn) Ure, RN Service: ? Author Type: Registered Nurse Type: ED Notes Filed: 04/08/2020 3:12 PM Note Text: Pt provided verbal AND written discharge instructions. Verbalized understanding. Instructed to f/u with PCP and to return to ED if condition or symptoms should persist/worsen. [facility] ED NOTE HNO ID: [id number] Author: Carrie Fall RN Service: ? Author Type: Registered Nurse Type: ED Notes Filed: 04/08/2020 1:26 PM Note Text: Covid swab obtained AND walked to lab. [facility] ED NOTE HNO ID: [id number] Author: Perry BronweRn) CONCHITA Pham Service: ? Author Type: Registered Nurse Type: ED Notes Filed: 04/08/2020 12:48 PM Note Text: Patient states drinking 12 shots per day and per patient I drink to help my pain, and I drink from right after my morning coffee and I don't eat until later in the day. [facility] ED NOTE HNO ID: [id number] Author: Perry Johnson) CONCHITA Pham Service: ? Author Type: Registered Nurse Type: ED Notes Filed: 04/08/2020 12:44 PM Note Text: Patient requesting alcohol detox. [facility] ED PROV NOTEon 04-08-2020 ED PROV NOTE HNO ID: [id number] Author: Tashi Meyer MD Service: Emergency Medicine Author Type: Physician Type: ED Provider Notes Filed: 04/08/2020 2:59 PM Note Text: ED Provider Note Patient Name: José Rojas SERVICE DATE: 04/08/20 History Patient presents with: Alcohol Problem 59-year-old male presents to the emergency room complaining of alcohol abuse and alcohol dependence. He states that he has been drinking daily for the past year. He states that he is drinking about 10 hard alcohol drinks daily. He denies any exacerbating or alleviating factors. He states that he is drinking because he is in pain. Denies any suicidal or homicidal ideations. He denies any hallucinations. He states that he last drank earlier today. He is requesting detox. History provided by: Patient relationship manager used: No PAST MEDICAL HISTORY Diagnosis Date - Acquired hallux limitus of left foot - Acute NM (HCC) 08/2007 angina - bare metal stent x1 - to see Dr Ortiz 08/30 - Arthritis of right hip inj helps - needs THR, 06/15/17:insurance did not approve - Back pain 10/14/2015 pain management rec CPRP - do not refill percocet - 07/08/17:send to [facility] - Chronic pain of toe of left foot - Depression zoloft - Fibromyalgia - GERD (gastroesophageal reflux disease) aciphex - Hematuria 2019 saw urology in [place] - Hiatal hernia - History of PTCA Dr Germain - HTN (hypertension) lisinopril - Hyperlipidemia lipitor - Lung nodule 10/16/14 6 mm - recheck at 1 yr and 2 yrs - Spinal stenosis 1995 accident went to PT - neck, mid back, right leg, 10/09, percocet 05/03 tid - Dr Brooks (pain management) - tried fentayl, methadone - Testicular lump s/p removal, benign - testosterone - Dr Valentine PAST SURGICAL HISTORY Procedure Laterality Date - APPENDECTOMY 1983 - PAST SURGICAL HISTORY OF 2008 one coronary stent/heart cath with stent - PAST SURGICAL HISTORY OF 09/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 Substance and Sexual Activity - Alcohol use: Yes Alcohol/week: 35.0 standard drinks Types: 14 Cans of Beer (12oz) per week Comment: 12 shots a day. - Drug use: No - Sexual activity: Not on file Comment: not asked ALLERGIES No Known Allergies Review of Systems Constitutional: Negative for chills and fever. HENT: Negative. Eyes: Negative. Respiratory: Negative. Cardiovascular: Negative. Gastrointestinal: Negative. Genitourinary: Negative. Musculoskeletal: Negative. Skin: Negative. Neurological: Negative. Psychiatric/Behavioral: Positive for behavioral problems. Negative for suicidal ideas. All other systems reviewed and are negative. Physical Exam BP 141/92 Pulse 72 Resp 16 SpO2 96% O2 Therapy: Room Air Physical Exam Vitals and nursing note reviewed. Constitutional: General: He is awake. He is not in acute distress. Appearance: Normal appearance. He is well-developed and normal weight. He is not ill-appearing, toxic-appearing or diaphoretic. HENT: Head: Normocephalic and atraumatic. Jaw: There is normal jaw occlusion. Nose: Nose normal. Eyes: General: Lids are normal. Vision grossly intact. Gaze aligned appropriately. Extraocular Movements: Extraocular movements intact. Conjunctiva/sclera: Conjunctivae normal. Pupils: Pupils are equal, round, and reactive to light. Neck: Trachea: Trachea and phonation normal. Cardiovascular: Rate and Rhythm: Normal rate and regular rhythm. Pulses: Normal pulses. Heart sounds: Normal heart sounds. Pulmonary: Effort: Pulmonary effort is normal. Breath sounds: Normal breath sounds and air entry. Abdominal: General: Bowel sounds are normal. Palpations: Abdomen is soft. Musculoskeletal: General: Normal range of motion. Cervical back: Full passive range of motion without pain, normal range of motion and neck supple. Skin: General: Skin is warm and dry. Neurological: General: No focal deficit present. Mental Status: He is alert and oriented to person, place, and time. GCS: GCS eye subscore is 4. GCS verbal subscore is 5. GCS motor subscore is 6. Sensory: Sensation is intact. Motor: Motor function is intact. Psychiatric: Attention and Perception: Attention and perception normal. Mood and Affect: Mood and affect normal. Speech: Speech normal. Behavior: Behavior normal. Behavior is cooperative. Thought Content: Thought content normal. Cognition and Memory: Cognition and memory normal. Judgment: Judgment normal. Diagnostic Testing ED Labs Ordered and Reviewed COMPREHENSIVE METABOLIC PANEL (AK,AV,EU,FV,HL,ALFREDO,MM,SP) - Abnormal; Notable for the following components: Result Value Ref Range Albumin 5.1 (*) 3.9 - 4.9 g/dL All other components within normal limits URINALYSIS WITH MICROSCOPIC (AK,AV,EU,FV,HL,ALFREDO,MM,SP) - Abnormal; Notable for the following components: Hemoglobin/Blood,Ur Trace (*) Negative All other components within normal limits URINE DRUG SCREEN (AK,AV,EU,FV,HL,ALFREDO,MM,SP) - Abnormal; Notable for the following components: Ethanol, Urine 134 (*) <11 mg/dL Oxycodone, Urine Preliminary positive. (*) Negative All other components within normal limits ALCOHOL / ETHANOL BLOOD (AK,AV,EU,FV,HL,ALFREDO,MM,SP) - Abnormal; Notable for the following components: Ethanol 111 (*) <11 mg/dL All other components within normal limits CBC + PLT (AK,AV,EU,FV,HL,ALFREDO,MM,SP) EXPEDITED COVID19 Procedures ED Course / Clinical Impression ED Course as of Apr 08 1458 Tashi Meyer's Documentation TueApr 08, 2020 1314 ED EKG INTERPRETATION: Normal sinus rhythm at 66 beats per minute Right axis deviation Normal intervals Normal Q-T interval Normal ST-T segments Interpretation by ED physician Clinical Impressions as of Apr 08 1458 Alcohol abuse Opiate abuse, continuous (HCC) COVID-19 test performed per [facility] policy for suspected COVID community exposure. MDM / Disposition / Plan Patient's prior medical records in [facility] were reviewed ED interventions: Medications chlordiazePOXIDE 25 mg cap(s) (LIBRIUM) (25 mg ORAL Given 04/08/20 1354) NaCl 0.9% 1,000 mL iv bolus (0 mL INTRAVENOUS Infusion Complete 04/08/201457) thiamine 100 mg tab(s) (VITAMIN B1) (100 mg ORAL Given 04/08/20 1354) folic acid 1 mg tab(s) (1 mg ORAL Given 04/08/20 1354) Medication(s) and/or therapy administered include Patient given Librium for possible alcohol withdrawal. Alcohol dependence, alcohol intoxication, alcohol abuse considered as differential diagnoses. After evaluation differential diagnoses were considered less likely because of the following reasons Alcohol dependence unlikely as patient has no elevated LFTs and a relatively low alcohol level without tachycardia.. Management decisions include Patient most likely has opiate abuse and possibly opiate dependence. He does not meet criteria for an inpatient alcohol withdrawal stay at this time. The patient was DISCHARGED: Counseled patient regarding lab results AND suspected diagnosis AND need for follow-up. Discharged home with verbal and written instructions. They were instructed to return as needed for persistent or worsening symptoms or any new concerns. Condition at time of disposition: stable SIGNATURE: MD Tashi Rain MD 04/08/20 1459 Normal [facility] Ethanolon 04-08-2020 Ethanol [Mass/Vol] 111 mg/dL High <11 [facility] Comment on above: Performed By: #### C MP, CBC, ALCO #### [place] [address] Expedited [id number] 04-08-20 20 COVID 19 Result BAG BAILER Negative Normal Negative for COVID19 (SARS CoV2) by PCR. [facility] Comment on above: Result Comment: This test has been authorized by FDA under an Emergency Use Authorization (EUA). Performed By: #### E XCOVD #### [place] [address] COVID 19 Source BAG BAILER Nasopharyngeal Swab Normal [facility] Comment on above: Performed By: #### E XCOVD #### [place] [address] Toxicology Screen,Uron 04-08 Amphetamines, Urine Negative Normal Negative [facility] Comment on above: Result Comment: Cuto ff threshold at 1000 ng/mL. Performed By: #### U AWCHARLENE UTOX2 #### [place] [address] Barbiturates, Urine Negative Normal Negative [facility] Comment on above: Result Comment: Cuto ff threshold at 200 ng/mL. Performed By: #### U AWCHARLENE, UTOX2 #### [place] [address] Benzodiazepines, Ur Negative Normal Negative [facility] Comment on above: Result Comment: Cuto ff threshold at 200 ng/mL. Performed By: #### U AWCHARLENE, UTOX2 #### [place] [address] Cannabinoids, Urine Negative Normal Negative [facility] Comment on above: Result Comment: Cuto ff threshold at 50 ng/mL. Performed By: #### U AWMIC, UTOX2 #### [place] [address] Cocaine, Urine Negative Normal Negative [facility] Comment on above: Result Comment: Cuto ff threshold at 300 ng/mL. Performed By: #### Yohana WONG UTOX2 #### [place] [address] Ethanol, Urine 134 mg/dL High <11 [facility] Comment on above: Performed By: #### U AWCHARLENE, UTOX2 #### [place] [address] Opiates, Urine Negative Normal Negative [facility] Comment on above: Result Comment: Cuto ff threshold at 300 ng/mL. Performed By: #### U JUDITH UTOX2 #### [place] [address] Oxycodone, Urine Positive Critically abnormal Negative [facility] Comment on above: Result Comment: Cuto ff threshold at 100 ng/mL. Comment: Immunoassay screen only. Cross reactivity with other substances can occur with immunoassay screening. Detection of any drug(s) in this urine toxicology panel is presumptive only. These tests are for medical purposes only and should not be used for compliance monitoring, legal, or forensic use. Samples should be within normal physiological conditions (e.g. pH). This assay does not include adulteration/specimen validity testing. In clinical settings, confirmatory testing is at the practitioner's discretion [1]. If clinically indicated, confirmation by high specificity, quantitative methodology, which includes adulteration/specimen validity testing, may be requested on the same specimen through Client Services ([phone]) if contacted within 48 hours of initial testing. [1]Substance Abuse and Mental Health Services Administration (2012). Clinical Drug Testing in Primary Care Technical Assistance Publication Series 32. Department of Health and Human Services, [place], p.10. Performed By: #### U JUDITH UTOX2 #### [place] [address] Phencyclidine, Urine Negative Normal Negative [facility] Comment on above: Result Comment: Cuto ff threshold at 25 ng/mL. Performed By: #### U AWCHARLENE UTOX2 #### [place] [address] Urinalysis with Microscopico n 04-08-2020 Bilirubin, Urine Negative Normal Negative [facility] Comment on above: Performed By: #### U AWMIC, UTOX2 #### [place] [address] Cast SEE COMMENT Normal 0 [facility] Comment on above: Result Comment: 0 Performed By: #### U AWMIC, UTOX2 #### [place] [address] Clarity (U) Clear Normal Clear [facility] Comment on above: Performed By: #### U AWMIC, UTOX2 #### [place] [address] Color (U) Yellow Normal Yellow [facility] Comment on above: Performed By: #### U AWMIC, UTOX2 #### [place] [address] Glucose Ql (U) Negative Normal Negative [facility] Comment on above: Performed By: #### U AWMIC, UTOX2 #### [place] [address] Hemoglobin/Blood,Ur Trace Critically abnormal Negative [facility] Comment on above: Performed By: #### U AWMIC, UTOX2 #### [place] [address] Ketones Ql (U) Negative Normal Negative [facility] Comment on above: Performed By: #### U AWMIC, UTOX2 #### [place] [address] Leukest Negative Normal Negative [facility] Comment on above: Performed By: #### U AWMIC, UTOX2 #### [place] [address] Nitrite Ql (U) Negative Normal Negative [facility] Comment on above: Performed By: #### U AWMIC, UTOX2 #### [place] [address] pH (Bld) 5.5 Normal 5.0-8.0 [facility] Comment on above: Performed By: #### U JUDITH UTOX2 #### [place] [address] Protein (U) [Mass/Vol] Negative Normal Negative [facility] Comment on above: Performed By: #### U JUDITH UTOX2 #### [place] [address] RBC (U) [#/Vol] 0-3 Normal 0-3 [facility] Comment on above: Performed By: #### U JUDITH UTOX2 #### [place] [address] Specific [place], Ur 1.010 Normal 1.005-1 .03 0 [facility] Comment on above: Performed By: #### U JUDITH UTOX2 #### [place] [address] Urobilinogen Qn (U) 0.2 E.U./dL Normal 0.2-1.0 [facility] Comment on above: Performed By: #### U JUDITH UTOX2 #### [place] [address] WBC (Bld) [#/Vol] 0-5 Normal 0-5 [facility] Comment on above: Performed By: #### U JUDITH UTOX2 #### [place] [address] PROGRESSon 03-25-2020 PROGRESS HNO ID: [id number] Author: Kathleen Richard (Msw) Service: ? Author Type: Counselor Type: Progress Notes Filed: 03/25/2020 11:36 AM Note Text: [facility], however did not sign onto session. Contacted patient via telephone and patient reported he thought appt was via telephone and does not have zoom set up. Discussed options and patient reported that he would like to reschedule appointment. Patient did report that he drinks daily, throughout the day- between 6-8 drinks on average. Patient reports that in the mornings he does become tremulous, but then begins drinking. Discussed other withdrawal symptoms to monitor for including diaphoresis, anxiety/agitation; increase in pulse/BP and instructed patient to go to ED if experiencing this. Discussed ADRC program (abstinence based, 12 step based, virtual IOP). Patient inquired as to if there is somewhere I can go to dry out for like 3 days . Discussed that this would be inpatient detox and that if he feels it is needed he could go to [facility] and be evaluated for appropriateness of this. Patient reported understanding. Patient chose to rescheduled evaluation for 03/31/2020, informed him he would need to have both MyChart and zoom installed/set up with visual and audio capabilities prior to appointment. Patient at minimum meets criteria for alcohol use disorder, moderate (unable to cut back/quit; spends a lot of time in activities surrounding it- drinks throughout the day; withdrawal symptoms- tremors and reports it is negatively impacting health); may be modified upon completion of comprehensive evaluation. 18 minute spent in direct care of patient via telephone. SULEMA Plasencia, [facility] [place] SULEMA Plasencia, [facility] Provider Letteron 01-02-2020 Provider Letter (Inserted Image. Meagan ble to display) January 02, 2020 JOSÉ ROJAS [address] [facility] [place] [address] JOSÉ ROJAS 1960 Dear José , You missed your scheduled appointment on: Jan 02, 2020and the purpose of this letter is to inform you of our *No Show Policy*. Our appointment slots fill rapidly and when we have a no show appointment that time is lost. We could have used that time slot to care for a patient who needed to see one of our providers. Therefore, we ask that you call 24 hours in advance to cancel your appointment. After your second no show within a twelve (12) month period, you will be assessed a $30 charge. This policy is in place so that we can meet the needs of all of our patients and we do appreciate your understanding. Sincerely, [facility]/Dr Lama [facility] MR Elbow - right WO contrast on 12-17-2019 IMPRESSION: 1. Full-thickness tear and retraction of the distal biceps tendon with surrounding fluid and soft tissue edema. 2. Common extensor tendinosis. Firer Boiler[facility] Transcribe Date/Time: Dec 17 2019 10:25A Dictated by : HECTOR KENNEY MD This examination was interpreted and the report reviewed and electronically signed by: HECTOR KENNEY MD on Dec 17 2019 10:31AM [facility] DIVISION OF RADIOLOGY * * *Final Report* * * DATE OF EXAM: Dec 17 2019 8:05AM LNM 0189 - MRI ELBOW WO IVCON RT / PROCEDURE REASON: Elbow sprain, right, initial encounter * * * * Physician Interpretation * * * * MRI RIGHT ELBOW: HISTORY: Recent throwing injury with elbow pain and swelling. Clinical concern for biceps tendon tear. TECHNIQUE: Multiplanar, multisequence MRI was performed utilizing the following sequences: Axial fat sat T2 and intermediate weighted. Coronal T1 and fat sat T2. Sagittal fat sat T2. There is mild motion artifact which degrades image quality and lowers the sensitivity of this examination. COMPARISON: Orthopedic office note dated 12/06/2019. Radiographs of the elbow dated 11/20/2019. RESULT: Bone marrow signal is preserved throughout the elbow. The radiocapitellar and ulnohumeral joint spaces are preserved. There is an olecranon spur present. There is thickening and intermediate T2 signal in the common extensor tendon consistent with tendinosis. Common flexor tendon origin, ulnar collateral ligament, and radial collateral ligament complex are intact. Full-thickness tear and retraction of the distal biceps tendon from the radial tuberosity. The tendon is retracted to the distal arm which is approximately 10.1 cm from the radial tuberosity. The retracted tendon is diffusely thickened with underlying tendinosis and surrounding fluid. The brachialis and triceps tendon insertions remain intact. Cubital tunnel and ulnar nerve have normal appearance. There is no soft tissue or muscle edema. No evidence for elbow joint effusion. Soft tissue edema along the expected course of the biceps tendon. DIVISION OF RADIOLOGY Provider, [facility] - 12/17/2019 * * *Final Report* * * DATE OF EXAM: Dec 17 2019 8:05AM LNM 0189 - MRI ELBOW WO IVCON RT / PROCEDURE REASON: Elbow sprain, right, initial encounter * * * * Physician Interpretation * * * * MRI RIGHT ELBOW: HISTORY: Recent throwing injury with elbow pain and swelling. Clinical concern for biceps tendon tear. TECHNIQUE: Multiplanar, multisequence MRI was performed utilizing the following sequences: Axial fat sat T2 and intermediate weighted. Coronal T1 and fat sat T2. Sagittal fat sat T2. There is mild motion artifact which degrades image quality and lowers the sensitivity of this examination. COMPARISON: Orthopedic office note dated 12/06/2019. Radiographs of the elbow dated 11/20/2019. RESULT: Bone marrow signal is preserved throughout the elbow. The radiocapitellar and ulnohumeral joint spaces are preserved. There is an olecranon spur present. There is thickening and intermediate T2 signal in the common extensor tendon consistent with tendinosis. Common flexor tendon origin, ulnar collateral ligament, and radial collateral ligament complex are intact. Full-thickness tear and retraction of the distal biceps tendon from the radial tuberosity. The tendon is retracted to the distal arm which is approximately 10.1 cm from the radial tuberosity. The retracted tendon is diffusely thickened with underlying tendinosis and surrounding fluid. The brachialis and triceps tendon insertions remain intact. Cubital tunnel and ulnar nerve have normal appearance. There is no soft tissue or muscle edema. No evidence for elbow joint effusion. Soft tissue edema along the expected course of the biceps tendon. IMPRESSION IMPRESSION: 1. Full-thickness tear and retraction of the distal biceps tendon with surrounding fluid and soft tissue edema. 2. Common extensor tendinosis. Firer Boiler: [facility] Transcribe Date/Time: Dec 17 2019 10:25A Dictated by : HECTOR KENNEY MD This examination was interpreted and the report reviewed and electronically signed by: HECTOR KENNEY MD on Dec 17 2019 10:31AM EST [facility] Radiology Study observation (narrative) [facility] MR Elbow - right WO contrast Ordered By: Ccf Provider on 12-17-2019 [facility] Ambulatory Clinical Summaryo n 11-19-2019 Ambulatory Clinical Summary {[id number]}CD: [id number] Normal [facility] Ambulatory Clinical Summary {[id number]}CD: [id number] Normal [facility] Ambulatory Clinical Summaryo n 11-16-2019 Ambulatory Clinical Summary {[id number]}CD: [id number] Normal [facility] Ambulatory Clinical Summaryo n 10-10-2019 Ambulatory Clinical Summary {[id number]}CD: [id number] Normal [facility] No Panel Information [facility] Vital Signs Date Time Vital Sign Value Performing Clinician Facility 02-29-2024 12:10-0400 Diastolic blood pressure 97 mm[Hg] Mya Rachel APRN.CNP [facility] Work Phone: [facility] 02-29-2024 12:10-0400 Heart rate 78 /min Mya Rachel APRN.CNP [facility] Work Phone: [facility] 02-29-2024 12:10-0400 Systolic blood pressure 174 mm[Hg] Mya Rachel APRN.[employer] [facility] Work Phone: [facility] 02-29-2024 12:08-0400 Body mass index (BMI) [Ratio] 27.27 kg/m2 Mya Racehl APRN.CNP [facility] Work Phone: [facility] 02-29-2024 12:08-0400 Body weight 88.7 kg Mya Rachel APRN.CNP [facility] Work Phone: [facility] 02-29-2024 12:08-0400 SaO2% (BldA) [Mass fraction] 97 % Mya Rachle APRN.CNP [facility] Work Phone: [facility] 02-08-2024 16:14-0400 Body height 180.3 cm Day Holman MD Work Phone: [facility] 02-08-2024 16:14-0400 Body mass index (BMI) [Ratio] 27.18 kg/m2 Day Holman MD Work Phone: [facility] 02-08-2024 16:14-0400 Body weight 88.4 kg Day Holman MD Work Phone: [facility] 02-08-2024 16:14-0400 Diastolic blood pressure 81 mm[Hg] Day Holman MD Work Phone: [facility] 02-08-2024 16:14-0400 Heart rate 84 /min Day Holman MD Work Phone: [facility] 02-08-2024 16:14-0400 Systolic blood pressure 145 mm[Hg] Day Holman MD Work Phone: [facility] 02-03-2024 11:48-0400 Body mass index (BMI) [Ratio] 25.1 kg/m2 Summer Workman PA Work Phone: [facility] 02-03-2024 11:48-0400 Body temperature 98.2 [degF] Summer Workman PA Work Phone: [facility] 02-03-2024 11:48-0400 Body weight 81.65 kg Summer Workman PA Work Phone: [facility] 02-03-2024 11:48-0400 Diastolic blood pressure 86 mm[Hg] Summer Workman PA Work Phone: [facility] 02-03-2024 11:48-0400 Heart rate 88 /min Summer Workman PA Work Phone: [facility] 02-03-2024 11:48-0400 SaO2% (BldA) [Mass fraction] 97 % Summer Workman PA Work Phone: [facility] 02-03-2024 11:48-0400 Systolic blood pressure 144 mm[Hg] Summer Workman PA Work Phone: [facility] 12-28-2023 14:09-0400 Diastolic blood pressure 80 mm[Hg] Annetta Mccann MD Work Phone: [facility] 12-28-2023 14:09-0400 Heart rate 69 /min Annetta Mccann MD Work Phone: [facility] 12-28-2023 14:09-0400 SaO2% (BldA) [Mass fraction] 99 % Annetta Mccann MD Work Phone: [facility] 12-28-2023 14:09-0400 Systolic blood pressure 133 mm[Hg] Annetta Mccann MD Work Phone: [facility] 11-29-2023 07:22-0400 Body height 180.3 cm Pacc 2 Work Phone: [facility] 11-29-2023 07:22-0400 Body mass index (BMI) [Ratio] 26.29 kg/m2 Pacc 2 Work Phone: [facility] 11-29-2023 07:22-0400 Body temperature 97 [degF] Pacc 2 Work Phone: [facility] 11-29-2023 07:22-0400 Body weight 85.5 kg Pacc 2 Work Phone: [facility] 11-29-2023 07:22-0400 Diastolic blood pressure 78 mm[Hg] Pacc 2 Work Phone: [facility] 11-29-2023 07:22-0400 Heart rate 60 /min Pacc 2 Work Phone: [facility] 11-29-2023 07:22-0400 Respiratory rate 16 /min Pacc 2 Work Phone: [facility] 11-29-2023 07:22-0400 SaO2% (BldA) [Mass fraction] 99 % Pacc 2 Work Phone: [facility] 11-29-2023 07:22-0400 Systolic blood pressure 152 mm[Hg] Pacc 2 Work Phone: [facility] 09-19-2023 11:45-0400 Diastolic blood pressure 86 mm[Hg] Rosa Robertson MD Work Phone: [facility] Comment on above: 2nd attempt 09-19-2023 11:45-0400 Heart rate 98 /min Rosa Robertson MD Work Phone: [facility] 09-19-2023 11:45-0400 Systolic blood pressure 127 mm[Hg] Rosa Robertson MD Work Phone: [facility] Comment on above: 2nd attempt 09-19-2023 11:43-0400 Body mass index (BMI) [Ratio] 26.36 kg/m2 Rosa Robertson MD Work Phone: [facility] 09-19-2023 11:43-0400 Body weight 85.73 kg Rosa Robertson MD Work Phone: [facility] 12-09-2022 22:00-0400 Body temperature 97.7 [degF] MD Rosa Robertson Work Phone: [facility] 12-09-2022 22:00-0400 Diastolic blood pressure 89 mm[Hg] MD Rosa Robertson Work Phone: [facility] 12-09-2022 22:00-0400 Heart rate 94 /min MD Rosa Robertson Work Phone: [facility] 12-09-2022 22:00-0400 Respiratory rate 20 /min MD Rosa Robertson Work Phone: [facility] 12-09-2022 22:00-0400 SaO2% (BldA) [Mass fraction] 96 % MD Rosa Robertson Work Phone: [facility] 12-09-2022 22:00-0400 Systolic blood pressure 151 mm[Hg] MD Rosa Robertson Work Phone: [facility] 12-09-2022 20:23-0400 Body height 180.34 cm MD Rosa Robertson Work Phone: [facility] 12-09-2022 20:23-0400 Body weight 95.25 kg MD Rosa Robertson Work Phone: [facility] 12-07-2022 12:59-0400 Diastolic blood pressure 90 mm[Hg] [facility] 2 Work Phone: [facility] 12-07-2022 12:59-0400 Heart rate 103 /min Pacc 2 Work Phone: [facility] 12-07-2022 12:59-0400 Systolic blood pressure 131 mm[Hg] Pacc 2 Work Phone: [facility] 12-07-2022 12:50-0400 Body height 180.3 cm Pacc 2 Work Phone: [facility] 12-07-2022 12:50-0400 Body temperature 98.29 [degF] Pacc 2 Work Phone: [facility] 12-07-2022 12:50-0400 Body weight 95.71 kg Pacc 2 Work Phone: [facility] 12-07-2022 12:50-0400 Respiratory rate 20 /min Pacc 2 Work Phone: [facility] 12-07-2022 12:50-0400 SaO2% (BldA) [Mass fraction] 99 % Pacc 2 Work Phone: [facility] 11-26-2022 14:01-0400 Body mass index (BMI) [Ratio] 30.13 kg/m2 [facility] 11-26-2022 14:01-0400 Body weight 97.98 kg [facility] 11-26-2022 14:01-0400 Diastolic blood pressure 81 mm[Hg] [facility] 11-26-2022 14:01-0400 Heart rate 100 /min [facility] 11-26-2022 14:01-0400 SaO2% (BldA) [Mass fraction] 99 % [facility] 11-26-2022 14:01-0400 Systolic blood pressure 120 mm[Hg] [facility] 11-22-2022 05:28-0400 Body temperature 98.6 [degF] Cristal Manuel MD Work Phone: [facility] 11-22-2022 05:28-0400 Diastolic blood pressure 93 mm[Hg] Cristal Manuel MD Work Phone: [facility] 11-22-2022 05:28-0400 Heart rate 89 /min Cristal Manuel MD Work Phone: [facility] 11-22-2022 05:28-0400 Respiratory rate 18 /min Cristal Manuel MD Work Phone: [facility] 11-22-2022 05:28-0400 SaO2% (BldA) [Mass fraction] 98 % Cristal Manuel MD Work Phone: [facility] 11-22-2022 05:28-0400 Systolic blood pressure 138 mm[Hg] Cristal Manuel MD Work Phone: [facility] 11-21-2022 11:53-0400 Body height 180.3 cm Cristal Manuel MD Work Phone: [facility] 11-21-2022 11:53-0400 Body mass index (BMI) [Ratio] 30.24 kg/m2 Cristal Manuel MD Work Phone: [facility] 11-21-2022 11:53-0400 Body weight 98.34 kg Cristal Manuel MD Work Phone: [facility] 11-19-2022 15:34-0400 Heart rate 150 /min Cristal Manuel MD Work Phone: [facility] 11-18-2022 20:03-0400 Diastolic blood pressure 115 mm[Hg] MD Rosa Robertson Work Phone: [facility] 11-18-2022 20:03-0400 Heart rate 145 /min MD Rosa Robertson Work Phone: [facility] 11-18-2022 20:03-0400 Respiratory rate 18 /min MD Rosa Robertson Work Phone: [facility] 11-18-2022 20:03-0400 SaO2% (BldA) [Mass fraction] 97 % MD Rosa Robertson Work Phone: [facility] 11-18-2022 20:03-0400 Systolic blood pressure 200 mm[Hg] MD Rosa Robertson Work Phone: [facility] 11-18-2022 17:05-0400 Body height 180.34 cm MD Rosa Robertson Work Phone: [facility] 11-18-2022 17:05-0400 Body weight 97.52 kg MD Rosa Robertson Work Phone: [facility] 11-18-2022 16:37-0400 Body temperature 98.3 [degF] MD Rosa Robertson Work Phone: [facility] 08-10-2022 00:18-0400 Body height 180.34 cm MD Roas Robertson Work Phone: [facility] 08-10-2022 00:18-0400 Body temperature 98.6 [degF] MD Rosa Robertson Work Phone: [facility] 08-10-2022 00:18-0400 Body weight 96.6 kg MD Rosa Robertson Work Phone: [facility] 08-10-2022 00:18-0400 Diastolic blood pressure 60 mm[Hg] MD Rosa Robertson Work Phone: [facility] 08-10-2022 00:18-0400 Heart rate 98 /min MD Rosa Robertson Work Phone: [facility] 08-10-2022 00:18-0400 Respiratory rate 18 /min MD Rosa Robertson Work Phone: [facility] 08-10-2022 00:18-0400 SaO2% (BldA) [Mass fraction] 96 % MD Rosa Robertson Work Phone: [facility] 08-10-2022 00:18-0400 Systolic blood pressure 132 mm[Hg] MD Rosa Robertson Work Phone: [facility] 04-16-2022 12:14-0500 Diastolic blood pressure 93 mm[Hg] Rosa Robertson MD Work Phone: [facility] 04-16-2022 12:14-0500 Heart rate 88 /min Rosa Robertson MD Work Phone: [facility] 04-16-2022 12:14-0500 Systolic blood pressure 151 mm[Hg] Rosa Robertson MD Work Phone: [facility] 04-16-2022 12:03-0500 Body weight 95.48 kg Rosa Robertson MD Work Phone: [facility] 04-16-2022 12:03-0500 Respiratory rate 16 /min Rosa Robertson MD Work Phone: [facility] 03-04-2022 17:19-0400 Diastolic blood pressure 97 mm[Hg] Rosa Robertson MD Work Phone: [facility] 03-04-2022 17:19-0400 Heart rate 112 /min Rosa Robertson MD Work Phone: [facility] 03-04-2022 17:19-0400 Systolic blood pressure 147 mm[Hg] Rsoa Robertson MD Work Phone: [facility] 03-04-2022 17:06-0400 Respiratory rate 16 /min Rosa Robertson MD Work Phone: [facility] 02-22-2022 15:28-0400 Diastolic blood pressure 124 mm[Hg] Jesus Manuel [place] PA-C Work Phone: [facility] 02-22-2022 15:28-0400 Heart rate 110 /min Jesus Manuel [place] Work Phone: [facility] 02-22-2022 15:28-0400 Systolic blood pressure 190 mm[Hg] Jesus Manuel [place] Work Phone: [facility] 01-29-2022 10:05-0400 Body height 180.3 cm Pacc 3 Work Phone: [facility] 01-29-2022 10:05-0400 Body temperature 98.4 [degF] Pacc 3 Work Phone: [facility] 01-29-2022 10:05-0400 Body weight 97.52 kg Pacc 3 Work Phone: [facility] 01-29-2022 10:05-0400 Diastolic blood pressure 95 mm[Hg] Pacc 3 Work Phone: [facility] 01-29-2022 10:05-0400 Heart rate 99 /min Pacc 3 Work Phone: [facility] 01-29-2022 10:05-0400 Respiratory rate 20 /min Pacc 3 Work Phone: [facility] 01-29-2022 10:05-0400 SaO2% (BldA) [Mass fraction] 97 % Pacc 3 Work Phone: [facility] 01-29-2022 10:05-0400 Systolic blood pressure 166 mm[Hg] Pacc 3 Work Phone: [facility] 12-03-2021 13:38-0400 Diastolic blood pressure 85 mm[Hg] Rosa Robertson MD Work Phone: [facility] 12-03-2021 13:38-0400 Heart rate 108 /min Rosa Robertson MD Work Phone: [facility] 12-03-2021 13:38-0400 Respiratory rate 16 /min Rosa Robertson MD Work Phone: [facility] 12-03-2021 13:38-0400 Systolic blood pressure 131 mm[Hg] Rosa Robertson MD Work Phone: [facility] 11-25-2021 11:44-0400 Body height 180.3 cm Day Holman MD Work Phone: [facility] 11-25-2021 11:44-0400 Body weight 97.07 kg Day Holman MD Work Phone: [facility] 11-25-2021 11:44-0400 Diastolic blood pressure 105 mm[Hg] Day Holman MD Work Phone: [facility] 11-25-2021 11:44-0400 Heart rate 100 /min Day Holman MD Work Phone: [facility] 11-25-2021 11:44-0400 Systolic blood pressure 151 mm[Hg] Day Holman MD Work Phone: [facility] 09-25-2021 13:00-0400 Diastolic blood pressure 100 mm[Hg] Marine Short MD Work Phone: [facility] 09-25-2021 13:00-0400 Systolic blood pressure 160 mm[Hg] Marine Short MD Work Phone: [facility] 09-25-2021 12:52-0400 Body temperature 97.7 [degF] Marine Short MD Work Phone: [facility] 09-25-2021 12:52-0400 Body weight 99.34 kg Marine Short MD Work Phone: [facility] 09-25-2021 12:52-0400 Heart rate 102 /min Marine Short MD Work Phone: [facility] 09-25-2021 12:52-0400 SaO2% (BldA) [Mass fraction] 97 % Marine Short MD Work Phone: [facility] 08-25-2021 14:08-0400 Body height 180.3 cm Rosa Robertson MD Work Phone: [facility] 08-25-2021 14:08-0400 Body weight 97.98 kg Rosa Robertson MD Work Phone: [facility] 08-25-2021 14:08-0400 Diastolic blood pressure 88 mm[Hg] Rosa Robertson MD Work Phone: [facility] 08-25-2021 14:08-0400 Heart rate 101 /min Rosa Robertson MD Work Phone: [facility] 08-25-2021 14:08-0400 Respiratory rate 16 /min Rosa Robertson MD Work Phone: [facility] 08-25-2021 14:08-0400 Systolic blood pressure 125 mm[Hg] Rosa Robertson MD Work Phone: [facility] 08-20-2021 13:50-0400 Body height 180.3 cm Day Holman MD Work Phone: [facility] 08-20-2021 13:50-0400 Body weight 100.15 kg Day Holman MD Work Phone: [facility] 08-20-2021 13:50-0400 Diastolic blood pressure 108 mm[Hg] Day Holman MD Work Phone: [facility] 08-20-2021 13:50-0400 Heart rate 96 /min Day Holman MD Work Phone: [facility] 08-20-2021 13:50-0400 SaO2% (BldA) [Mass fraction] 99 % Day Holman MD Work Phone: [facility] 08-20-2021 13:50-0400 Systolic blood pressure 159 mm[Hg] Day Holman MD Work Phone: [facility] 08-12-2021 08:49-0400 Diastolic blood pressure 91 mm[Hg] Jett Rangel MD Work Phone: [facility] 08-12-2021 08:49-0400 Heart rate 84 /min Jett Rangel MD Work Phone: [facility] 08-12-2021 08:49-0400 Respiratory rate 19 /min Jett Rangel MD Work Phone: [facility] 08-12-2021 08:49-0400 SaO2% (BldA) [Mass fraction] 95 % Jett Rangel MD Work Phone: [facility] 08-12-2021 08:49-0400 Systolic blood pressure 148 mm[Hg] Jett Rangel MD Work Phone: [facility] 08-12-2021 08:13-0400 Body temperature 97 [degF] Jett Rangel MD Work Phone: [facility] 08-12-2021 07:10-0400 Body weight 98.88 kg Jett Rangel MD Work Phone: [facility] Encounters Encounter Date Encounter Type Care Provider Facility Start: 03-24-2024 End: 03-24-2024 ambulatory Jamee Nix RN [facility] Start: 03-24-2024 End: 03-24-2024 Patient encounter procedure Jamee Nix RN [facility]UR[facility] Comment on above: Clinical Update Start: 03-13-2024 End: 03-13-2024 ambulatory ROSA ROBERTSON Facility:[facility] Start: 03-13-2024 End: 03-13-2024 Patient encounter procedure Gatito Morgan DPM Work Phone: Orthopaedics Comment on above: Hallux rigidus, righ t foot (Primary Dx); Osteoarthritis of right ankle and foot Start: 03-06-2024 End: 03-10-2024 Refill Nirali Ardon LPN [facility] Comment on above: 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 Start: 03-05-2024 End: 03-05-2024 Telephone encounter Messi Marie MD Work Phone: [facility] Comment on above: Med Refill Start: 03-01-2024 End: 03-01-2024 ambulatory No 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 [facility] Start: 03-01-2024 End: 03-01-2024 Patient encounter procedure No 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 [facility] Start: 02-29-2024 End: 02-29-2024 Patient encounter procedure Mya Rachel APRN.HEAD HOUSEKEEPER, DNP Work Phone: Internal Medicine [facility] Comment on above: Pain in both feet (P rimary Dx) Start: 02-29-2024 End: 02-29-2024 ambulatory ROSA L MARCELO Facility:[facility] Start: 02-29-2024 End: 02-29-2024 Subsequent hospital visit by physician Paola [address] [facility] Work Phone: Radiology Comment on above: Pain in toe of right foot [M79.674] Start: 02-27-2024 End: 02-27-2024 ambulatory Rosa Robertson MD Work Phone: Internal Medicine Start: 02-27-2024 End: 02-27-2024 Patient encounter procedure Rosa Robertson MD Work Phone: Internal Medicine Comment on above: Foot pain Start: 02-27-2024 End: 02-29-2024 Telephone encounter Rosa Robertson MD Work Phone: Internal Medicine Comment on above: Patient Question Start: 02-08-2024 End: 02-08-2024 ambulatory ROSA ROBERTSON Facility:[facility] Start: 02-08-2024 End: 02-08-2024 Patient encounter procedure Day Holman MD Work Phone: Neurology Comment on above: Post-concussion head ache (Primary Dx) Start: 02-03-2024 End: 02-03-2024 Telephone encounter Caterina Ashton RN [facility] Comment on above: Advice/health educat ion Start: 02-03-2024 End: 02-03-2024 ambulatory [facility] Comment on above: Patient Update Pain (Primary Dx) Start: 02-03-2024 End: 02-03-2024 Office outpatient visit [address] [facility] Workmoi PA Work Phone: [facility] Comment on above: Strain of right ankl e, initial encounter (Primary Dx); Strain of right foot, initial encounter; Right foot pain; Acute right ankle pain Start: 01-31-2024 End: 01-31-2024 ambulatory Jean-Claude Sugar RT(R) Radiology Comment on above: Radiology XR Pain in left wrist ( Primary Dx); Thumb pain, left; Limited joint range of motion Start: 01-31-2024 End: 01-31-2024 Patient encounter procedure Jean-Claude Sugar RT(R) Radiology Comment on above: Postoperative state (Primary Dx); Primary osteoarthritis of first carpometacarpal joint of right hand Postoperative state (Primary Dx) Start: 01-31-2024 End: 01-31-2024 Subsequent hospital visit by physician Paola Lagunas Work Phone: Radiology Comment on above: Post-operative state [Z98.890] Start: 01-26-2024 End: 02-14-2024 Telephone encounter Gatito Morgan DPM Work Phone: Orthopaedics Comment on above: Orders Start: 01-24-2024 End: 01-25-2024 Refill Annetta Mccann MD Work Phone: Internal Medicine Comment on above: Refill Request Start: 01-17-2024 End: 01-17-2024 Refill Karli Curtis VARNER Work Phone: Orthopaedics Comment on above: Refill Request Start: 01-16-2024 End: 01-16-2024 ambulatory Joya Davey RN [facility] Comment on above: Ankle Injury Start: 01-11-2024 End: 01-13-2024 Refill Annetta Mccann MD Work Phone: Internal Medicine Comment on above: Refill Request Start: 01-11-2024 End: 01-11-2024 Telephone encounter Rik Rosenthal MD Work Phone: [address] [place] [address] Comment on above: Patient Update Start: 01-11-2024 End: 01-11-2024 Subsequent hospital visit by physician [facility] Work Phone: Radiology Comment on above: Post-operative state [Z98.890] Start: 01-11-2024 End: 01-11-2024 ambulatory KARLIEZEKIEL ACEVEDO Facility:[facility] Start: 01-11-2024 End: 01-11-2024 Patient encounter procedure [employer] [place] Work Phone: Orthopaedics Comment on above: Postoperative state (Primary Dx) Postoperative state Start: 12-28-2023 End: 12-28-2023 Office outpatient visit 25 minutes Annetta Mccann MD Work Phone: Internal Medicine Comment on above: Primary arthrosis of first carpometacarpal joints, bilateral (Primary Dx) Start: 12-28-2023 End: 12-28-2023 Telephone encounter Annetta Mccann MD Work Phone: Internal Medicine Start: 12-28-2023 End: 12-28-2023 ambulatory ROSA ROBERTSON Facility:[facility] Start: 12-28-2023 End: 12-28-2023 Patient encounter procedure [employer] [place] Work Phone: Orthopaedics Comment on above: Postoperative state (Primary Dx) Start: 12-28-2023 End: 12-28-2023 Subsequent hospital visit by physician [facility] Work Phone: Radiology Comment on above: Post-operative state [Z98.890] Start: 12-26-2023 End: 12-26-2023 Refill Rosa Robertson MD Work Phone: Internal Medicine Comment on above: Refill Request Start: 12-23-2023 End: 12-26-2023 Telephone encounter Rosa Robertson MD Work Phone: [address] [place] [address] Comment on above: Patient Question Start: 12-19-2023 End: 12-20-2023 Refill Rik Rosenthal MD Work Phone: Orthopaedics Comment on above: Refill Request Start: 12-16-2023 Telephone encounter Rik little MD Work Phone: Orthopaedics Comment on above: Medication Problem; Patient Update (Medication Refill / Nurse Triage Call Request) Start: 12-13-2023 ambulatory Orquidea Moore RN [facility] Start: 12-13-2023 Patient encounter procedure Orquidea Moore RN NURSE [facility]OULD[facility] Comment on above: Clinical Update Start: 12-12-2023 End: 12-12-2023 ambulatory ROSA ROBERTSON Facility:[facility] Start: 12-11-2023 ambulatory Ella noguera RN NUR[facility] Start: 12-11-2023 Patient encounter procedure Ella Oconnor RN NUR[facility] Comment on above: Clinical Update Start: 12-08-2023 Telephone encounter Karey John RN Pre Anesthesia Comment on above: Preparations For Christiano ernesto (Preop blood work ) Start: 12-05-2023 End: 12-05-2023 ambulatory ROSA ROBERTSON Facility:[facility] Start: 12-02-2023 Telephone encounter Rik little MD Work Phone: Orthopaedics Start: 11-29-2023 End: 11-29-2023 [facility] Work Phone: Pre [facility] Start: 11-29-2023 End: 11-29-2023 Alcohol abuse prevention Pac 2 Work Phone: Pre Anesthesia Comment on above: Pre-op examination ( Primary Dx); Primary arthrosis of first carpometacarpal joints, bilateral; Mixed hyperlipidemia; 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); Heart palpitations; Sleep apnea, unspecified type; Cigarette nicotine dependence without complication; Gastroesophageal reflux disease without esophagitis; Primary hypertension; Cervicalgia; Concussion with loss of consciousness, subsequent encounter; History of alcohol abuse; Adenomatoid tumor Start: 11-29-2023 End: 11-29-2023 ambulatory ROSA ROBERTSON Facility:[facility] Start: 11-29-2023 Encounter for other preprocedural examination ROSA ROBERTSON [facility] Start: 11-29-2023 End: 11-29-2023 Preprocedural examination done Pac 2 Work Phone: [facility] Work Phone: Start: 11-10-2023 ambulatory Orquidea Moore RN [facility] Comment on above: PC Dizziness/Syncope Start: 11-09-2023 Telephone encounter Vanessa Martinez Pre Anesthesia Comment on above: Refill Request Start: 11-04-2023 Orders Only Karli Acevedo PA-C Work Phone: Orthopaedics Comment on above: Primary arthrosis of first carpometacarpal joints, bilateral (Primary Dx) Start: 10-27-2023 Orders Only Rik Rosenthal MD Work Phone: Orthopaedics Comment on above: Primary arthrosis of first carpometacarpal joints, bilateral (Primary Dx) Start: 10-26-2023 Orders Only Rik Rosenthal MD Work Phone: Orthopaedics Comment on above: Primary arthrosis of first carpometacarpal joints, bilateral (Primary Dx) Start: 10-24-2023 End: 10-24-2023 ambulatory Isis Wells RT(R) Radiology Comment on above: Radiology XR Start: 10-24-2023 End: 10-24-2023 Patient encounter procedure Isis Wells RT(R) Radiology Comment on above: Primary arthrosis of first carpometacarpal joints, bilateral (Primary Dx) Start: 10-24-2023 End: 10-24-2023 Subsequent hospital visit by physician Paola Lagunas Work Phone: Radiology Comment on above: Thumb pain, unspecif ied laterality [M79.646] Start: 10-18-2023 Refill Jeanne ferrell APRN.CNP Work Phone: Internal Medicine Comment on above: Refill Request Start: 10-03-2023 Refill Elisa King [place] PA-C Work Phone: Internal Medicine Comment on above: Refill Request Start: 09-19-2023 End: 09-19-2023 ambulatory ROSA ROBERTSON Facility:[facility] Start: 09-19-2023 End: 09-19-2023 Patient encounter procedure Rosa Robertson MD Work Phone: Internal Medicine Comment on above: Primary insomnia (Pr imary Dx) Start: 09-01-2023 Telephone encounter Rosa Robertson MD Work Phone: Internal Medicine Start: 08-30-2023 End: 08-30-2023 ambulatory MOISES KENNEDY Not Available Start: 08-16-2023 End: 08-17-2023 ambulatory MOISES KENNEDY Not Available Start: 08-10-2023 End: 08-10-2023 ambulatory ROSA ROBERTSON Facility:[facility] Start: 08-10-2023 End: 08-10-2023 Patient encounter procedure Facundo Borwnel DO Work Phone: Orthopaedics Comment on above: 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 (Primary Dx) Start: 08-09-2023 Refill Tiffanie Choi MD Work Phone: Neurology Comment on above: Refill Request Start: 07-04-2023 Refill Elisa King [place] PA-C Work Phone: Internal Medicine Comment on above: Refill Request Start: 06-28-2023 Refill Tiffanie Choi MD Work Phone: Neurology Comment on above: Refill Request Start: 06-18-2023 ambulatory Shelby Camargo RN NURS E SHOULDER [facility] Comment on above: Dizziness Start: 06-05-2023 ambulatory Xochitl jones RN NURSE SHOULDER [facility]WYER Comment on above: Head Injury Start: 05-18-2023 End: 05-18-2023 ambulatory RENA JIANG Not Available Start: 04-20-2023 End: 04-20-2023 ambulatory ROSA ROBERTSON Facility:[facility] Start: 04-06-2023 Telephone encounter Facundo pond DO Work Phone: [facility] [place] Comment on above: Appointment Start: 04-04-2023 Telephone encounter Diann Reese mariliamagedharsh SENIOR BEHAVIORAL SCIENTIST Work Phone: Adult Psychology Comment on above: Behavioral Health/So cial Work Start: 03-31-2023 Refill Rosa Robertson MD Work Phone: Internal Medicine Comment on above: Refill Request Start: 03-18-2023 ambulatory Rosa Robertson MD Work Phone: Internal Medicine Comment on above: Medication for nerve s due to extreme mental stress.new Start: 02-24-2023 Telephone encounter Rosa Robertson MD Work Phone: Internal Medicine [place] Comment on above: Opened In Error Start: 02-03-2023 Refill Tiffanie Choi MD Work Phone: Neurology Comment on above: Refill Request Start: 01-21-2023 Refill Annetta Mccann MD Work Phone: Internal Medicine Comment on above: Refill Request Start: 01-18-2023 End: 01-18-2023 Patient encounter procedure Felecia Caballero DPM Work Phone: Podiatry Comment on above: Foot pain, bilateral (Primary Dx); Calcaneal spur, unspecified laterality; Osteoarthritis, unspecified osteoarthritis type, unspecified site; Plantar fasciitis; History of rupture of Achilles tendon Start: 01-08-2023 ambulatory Ivett gibbs LPN NURSE SHOULDER [facility]WYER Comment on above: Symptoms Shortness of Breath Start: 12-29-2022 End: 12-29-2022 ambulatory ROSA ROBERTSON Facility:[facility] Start: 12-29-2022 End: 12-29-2022 Postop follow up visit related to original px Brock Valdez PA-C Work Phone: Plastic Surgery Comment on above: Post-operative state (Primary Dx); Other specified injury of extensor muscle, fascia and tendon of left thumb at wrist and hand level, initial encounter Start: 12-29-2022 End: 12-29-2022 Patient encounter procedure Meryl Sanders PA-C Work Phone: [facility] Orthopedic Hand Comment on above: NO SHOW (Primary Dx) Start: 12-21-2022 Telephone encounter Brokc De La Torre MD Work Phone: Plastic Surgery Comment on above: Patient Question Start: 12-13-2022 Telephone encounter Rosa Robertson MD Work Phone: Internal Medicine Comment on above: Electronic Communica tion (ED report [facility] ) Start: 12-09-2022 End: 12-10-2022 Emergency department patient visit Perry Cameron Paulokae Facility:[facility] Start: 12-09-2022 End: 12-09-2022 Emergency department patient visit MD Rosa Robertson Work Phone: [facility] Work Phone: Start: 12-09-2022 ambulatory Shelby Llanes RN NURS E SHOULDER SAWYER Comment on above: Musculoskeletal Prob jean Start: 12-07-2022 End: 12-07-2022 ambulatory ROSA ROBERTSON Facility:[facility] Start: 12-07-2022 Encounter for other preprocedural examination [facility] Start: 12-07-2022 End: 12-07-2022 Admission to establishment Pacc [facility] 2 Work Phone: [facility] Start: 12-07-2022 End: 12-07-2022 Alcohol abuse prevention Pacc 2 Work Phone: Pre Anesthesia Comment on above: Pre-op exam (Primary Dx); 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 2 Work Phone: [facility] Work Phone: Start: 12-06-2022 End: 12-07-2022 ambulatory ROSA ROBERTSON Facility:[facility] Start: 12-06-2022 End: 12-06-2022 Patient encounter procedure Brock De La Torre MD Work Phone: Plastic Surgery Comment on above: Other specified inju ry of extensor muscle, fascia and tendon of left thumb at wrist and hand level, initial encounter (Primary Dx) Start: 12-05-2022 ambulatory Shelby Llanes RN NURS E SHOULDER SAWYER Comment on above: Dizziness Start: 12-02-2022 End: 12-02-2022 Patient encounter procedure Mariah Anderson PA-C Work Phone: Orthopaedics Comment on above: Extensor tendon lace ration of left hand with open wound, initial encounter (Primary Dx) Start: 12-02-2022 End: 12-02-2022 Subsequent hospital visit by physician Xr Orth[facility] Rej Work Phone: Radiology Comment on above: Pain [R52] Start: 12-01-2022 ambulatory Valery Benitez MA [facility] Comment on above: Population Health Na vigation Outreach (HCC Gaps) Start: 11-26-2022 End: 11-26-2022 Office outpatient new 30 minutes Med Care Provider [facility] Medical [facility] Comment on above: Chronic pancreatitis , unspecified pancreatitis type (HCC) (Primary Dx); Hypertriglyceridemia Start: 11-22-2022 Telephone encounter Rosa Robertson MD Work Phone: Internal Medicine Comment on above: Electronic Communica tion ([facility] ED Note ) Start: 11-18-2022 End: 11-22-2022 Evaluation and management of inpatient Cristal Manuel MD Work Phone: [facility] Start: 11-18-2022 End: 11-18-2022 Emergency department patient visit Rosa Robertson Facility:[facility] Start: 11-18-2022 End: 11-18-2022 Emergency department patient visit MD Rosa Robertson Work Phone: [facility] Work Phone: Start: 11-18-2022 E.D. Visit Ericka Sellers [facility] Comment on above: Trauma/complex Medic al Situation; Fall Start: 11-17-2022 End: 11-17-2022 [facility] Start: 11-17-2022 End: 11-17-2022 ambulatory MD Rosa Robertson Work Phone: [facility] Work Phone: Start: 11-17-2022 End: 11-17-2022 Patient encounter procedure MD Rosa Robertson Work Phone: [facility] Jim Work Phone: Start: 11-16-2022 ambulatory Mary Leyva RN NURSE SHOULDER SAWYER Comment on above: Thumb Injury Start: 10-20-2022 Refill Rosa Robertson MD Work Phone: Internal Medicine Comment on above: Refill Request Start: 10-11-2022 End: 10-11-2022 Subsequent hospital visit by physician Irma Robles PTA [facility] Start: 10-04-2022 End: 10-05-2022 ambulatory PREM Garcia [facility] Start: 10-04-2022 End: 10-04-2022 Subsequent hospital visit by physician Irma Robles PTA [facility] Comment on above: Arrived Start: 09-30-2022 End: 10-01-2022 [facility] Start: 09-30-2022 End: 09-30-2022 Subsequent hospital visit by physician Judy Harris PT [facility] Comment on above: Arrived Start: 09-28-2022 End: 09-28-2022 Subsequent hospital visit by physician Irma Robles PTA [facility] Start: 09-23-2022 End: 09-23-2022 Subsequent hospital visit by physician Billy Cortes Pt Cover One [facility] Start: 09-14-2022 End: 09-15-2022 ambulatory PREM GUTHRIE [facility] [place] Start: 08-20-2022 End: 08-20-2022 ambulatory ROSA ROBERTSON [facility] Start: 08-10-2022 End: 08-10-2022 Emergency department patient visit Rosa Robertson Facility:[facility] Start: 08-10-2022 End: 08-10-2022 Emergency department patient visit MD Rosa Robertson Work Phone: [facility] Work Phone: Start: 08-04-2022 Refill Day Holman MD Work Phone: Neurology Comment on above: Refill Request Start: 07-07-2022 Refill Day Holman MD Work Phone: Neurology Comment on above: Refill Request Start: 07-05-2022 End: 07-08-2022 ambulatory ROSA ROBERTSON [facility] [place] Start: 07-05-2022 End: 07-07-2022 Subsequent hospital visit by physician [facility] 1 [facility] Comment on above: Status post total hi p replacement, left Start: 06-29-2022 Refill Annetta Mccann MD Work Phone: Internal Medicine Comment on above: Refill Request Start: 06-21-2022 End: 06-22-2022 ambulatory PREM Garcia [place] [facility] [place] Start: 06-21-2022 End: 06-24-2022 ambulatory PREM Garcia [facility] Start: 06-21-2022 End: 06-23-2022 Subsequent hospital visit by physician Prem Guthrie MD Work Phone: [facility] Radiology Comment on above: Pain Start: 06-16-2022 Telephone encounter Tiffanie min MD Work Phone: Neurology Comment on above: Migraines Start: 06-04-2022 Refill Day Holman MD Work Phone: Neurology Comment on above: Refill Request Start: 05-30-2022 ambulatory Day Holman MD Work Phone: Neurology Comment on above: Experiencing more co nfusion, difficulty speaking or pronouncing words, memory, and extreme headaches. Start: 05-13-2022 Telephone encounter Tiffanie min MD Work Phone: Neurology Comment on above: Medication Problem Start: 05-12-2022 End: 05-12-2022 ambulatory Tiffanie Choi MD Work Phone: NEUROLOGY Comment on above: Intractable chronic migraine without aura and without status migrainosus (Primary Dx); Post-concussion headache; Chronic pain syndrome Start: 05-12-2022 End: 05-12-2022 Telemedicine consultation with patient Tiffanie Choi MD Work Phone: [facility] Start: 05-06-2022 Refill Rosa Robertson MD Work Phone: Internal Medicine Comment on above: Refill Request Start: 05-04-2022 End: 05-04-2022 ambulatory ROSA ROBERTSON [facility] [place] Start: 04-23-2022 ambulatory Annetta Mccann MD Work Phone: Internal Medicine Comment on above: weight loss medicati ons Start: 04-23-2022 E-mail encounter keren m caregiver Annetta Mccann MD Work Phone: [facility] Start: 04-23-2022 End: 04-23-2022 Office outpatient visit 25 minutes Annetta Mccann MD Work Phone: Internal Medicine Comment on above: Primary osteoarthrit is of left hip (Primary Dx); Overweight (BMI 25.0-29.9) Start: 04-22-2022 Telephone encounter Annetta marks MD Work Phone: Internal Medicine Comment on above: Appointment Start: 04-21-2022 ambulatory Josue daniel MD Work Phone: Endocrinology Comment on above: Left knee injection Start: 04-16-2022 End: 04-16-2022 Patient encounter procedure Rosa Robertson MD Work Phone: Internal Medicine Comment on above: Nonintractable heada ivory, unspecified chronicity pattern, unspecified headache type (Primary Dx); Hip pain; Anxiety Start: 03-15-2022 Refill Marine Aguilar MD Work Phone: Internal Medicine Comment on above: Refill Request Start: 03-05-2022 Telephone encounter Diann neville SENIOR BEHAVIORAL SCIENTIST Work Phone: Adult Psychology Comment on above: behavioral health so cial work Start: 03-04-2022 End: 03-04-2022 Patient encounter procedure Rosa Robertson MD Work Phone: Internal Medicine Comment on above: Anxiety (Primary Dx) ; SOB (shortness of breath) Start: 03-02-2022 Telephone encounter Day King Work Phone: Neurology Comment on above: Clinical Update Start: 02-27-2022 ambulatory Rosa Robertson MD Work Phone: [facility] Start: 02-27-2022 Follow-up encounter Rosa Robertson MD Work Phone: Internal Medicine Comment on above: Follow up from last Tuesday's emergency department. Start: 02-26-2022 End: 02-26-2022 Emergency department patient visit [facility] Facility:[facility] Start: 02-22-2022 End: 02-22-2022 ambulatory Jesus Manuel Marion PA-C Work Phone: Internal Medicine Comment on above: Chest pain, unspecif ied type (Primary Dx); Shortness of breath; Anxiety; Hypertension, unspecified type; Tachycardia Start: 02-22-2022 End: 02-22-2022 Telemedicine consultation with patient Jesus Manuel Marion PA-C Work Phone: [facility] Start: 02-22-2022 End: 02-22-2022 Patient encounter procedure Gatito Morgan DPM Work Phone: Orthopaedics Comment on above: Surgical follow-up c are (Primary Dx) Start: 02-18-2022 ambulatory Siria Rivera RN NURS E SHOULDER [facility]WYER Comment on above: Breathing Problem Start: 02-14-2022 ambulatory Shelby Tenorio RN NU RSE SHOULDER SAWYER Comment on above: Chest Pain Start: 02-12-2022 Refill Rosa Robertson MD Work Phone: Internal Medicine Comment on above: Refill Request Start: 02-09-2022 End: 02-09-2022 Subsequent hospital visit by physician Xr [facility] General Radiology Comment on above: Surgical follow-up c are [Z09] Start: 02-09-2022 ambulatory Shanice Bang RT(R) [facility] Radiology Comment on above: Radiology XR Start: 02-09-2022 Follow-up encounter Gatito Morgan DPM Work Phone: Orthopaedics Comment on above: Surgical follow-up c are (Primary Dx) Start: 02-09-2022 End: 02-09-2022 Patient encounter procedure Shanice Bang RT(R) [facility] Comment on above: Surgical follow-up c are (Primary Dx) Start: 01-29-2022 End: 01-29-2022 Admission to establishment [place] [id number] Work Phone: [facility] Start: 01-29-2022 End: 01-29-[address] 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); Acute myocardial infarction, unspecified NM type, unspecified artery (HCC); Lung nodule; Gastroesophageal reflux disease without esophagitis; Primary hypertension; Sleep apnea, unspecified type; Cigarette nicotine dependence without complication Start: 01-29-2022 End: 01-29-2022 Preprocedural examination done [facility] Work Phone: Pre Anesthesia Start: 01-20-2022 Telephone encounter Jett Rangel MD Work Phone: Gastroenterology Comment on above: Patient Question (Ne eds OV) Start: 01-19-2022 End: 01-19-2022 Patient encounter procedure Gatito Morgan DPM Work Phone: Orthopaedics Comment on above: Hallux limitus, righ t (Primary Dx); Pain in right foot Start: 01-13-2022 Refill Daniel torres MD Work Phone: Otolaryngology Comment on above: Med Change Request Start: 01-13-2022 End: 01-13-2022 Patient encounter procedure Daniel Feliz MD Work Phone: Otolaryngology Comment on above: Misuse of drugs (Janae candelario Dx); Cervicalgia; Dysphonia; Oropharyngeal dysphagia; LPRD (laryngopharyngeal reflux disease); Globus sensation; Lesion of vocal fold; Vocal cord nodule; Gastroesophageal reflux disease without esophagitis Start: 01-09-2022 ambulatory Shannon Sebastian RN NU RSE SHOULDER SAWYER Comment on above: Difficulty Swallowin g; Pain, Throat Start: 01-08-2022 ambulatory Stephany Kaur RN NURS E SHOULDER SAWYER Comment on above: Pain, Throat Start: 12-29-2021 End: 12-29-2021 Patient encounter procedure Daniel Feliz MD Work Phone: Otolaryngology Comment on above: Dysphonia (Primary D x); Swallowing pain; Loss of voice; Illicit drug use; Oropharyngeal dysphagia; Alcohol abuse Start: 12-20-2021 ambulatory Candelario Layton RN NURSE SHOULDER SAWYER Comment on above: Difficulty Swallowin g; Information Start: 12-16-2021 Telephone encounter Rosa Robertson MD Work Phone: Internal Medicine Comment on above: Consult Start: 12-11-2021 ambulatory ROSA ROBERTSON Facility:[facility] Start: 12-11-2021 End: 12-11-2021 Subsequent hospital visit by physician [facility] Work Phone: [facility] Radiology General Comment on above: Cough [R05.9] Start: 12-08-2021 Refill Rosa Robertson MD Work Phone: Internal Medicine Comment on above: Refill Request Start: 12-04-2021 ambulatory Velia Vasquez RN NU RSE SHOULDER SAWYER Comment on above: Hand Injury Start: 12-04-2021 End: 12-04-2021 Patient encounter procedure Facundo Pena DO Work Phone: Orthopaedics Comment on above: Primary osteoarthrit is of left knee (Primary Dx) Start: 12-03-2021 End: 12-03-2021 Patient encounter procedure Rosa Robertson MD Work Phone: Internal Medicine Comment on above: Swallowing pain (Janae candelario Dx); Loss of voice; Breathing problem Start: 11-30-2021 Telephone encounter Rosa Robertson MD Work Phone: Internal Medicine Comment on above: Throat Problem Start: 11-25-2021 End: 11-25-2021 Patient encounter procedure Day Holman MD Work Phone: Neurology Comment on above: Chronic post concuss guerline encephalopathy (Primary Dx); Chronic post-traumatic headache, not intractable Start: 11-17-2021 ambulatory [facility] Provider Essence najera Comment on above: Gel injections Start: 11-17-2021 E-mail encounter keren m caregiver [facility] Provider JENNIFER FRANZ Start: 11-15-2021 ambulatory Karen Stone RN NURSE O N CALL Comment on above: Information Start: 11-10-2021 End: 11-10-2021 Patient encounter procedure Facundo Pena DO Work Phone: Orthopaedics Comment on above: Primary osteoarthrit is of left knee (Primary Dx) Start: 11-05-2021 Refill Marine Aguilar MD Work Phone: Internal Medicine Comment on above: Refill Request Start: 11-03-2021 Telephone encounter Facundo pond DO Work Phone: Orthopaedics Comment on above: Left Knee Pain Start: 10-07-2021 [facility]ing [facility] Work Phone: Neurology Comment on above: cmn Start: 09-26-2021 ambulatory Danii Randolph RN NURSE SHOULDER SAWYER Comment on above: Information Start: 09-25-2021 End: 09-25-2021 Patient encounter procedure Marine Short MD Work Phone: Internal Medicine Comment on above: Cough (Primary Dx); Hoarseness; Throat congestion; Hypertension, unspecified type; Hypertriglyceridemia; Testosterone deficiency Start: 09-25-2021 End: 09-25-2021 Alcohol abuse prevention Josue Pena MD Work Phone: Endocrinology Comment on above: Hypogonadism in male (Primary Dx); Mixed hyperlipidemia; Alcohol abuse; Class 1 obesity with body mass index (BMI) of 30.0 to 30.9 in adult, unspecified obesity type, unspecified whether serious comorbidity present Start: 09-25-2021 End: 09-25-2021 Telemedicine consultation with patient Josue Pena MD Work Phone: Carlyn FRANZ [facility] Start: 09-23-2021 Telephone encounter Rosa Robertson MD Work Phone: Internal Medicine Comment on above: Appointment Start: 09-21-2021 End: 09-21-2021 ambulatory Jesus Manuel Marion PA-C Work Phone: Internal Medicine Comment on above: Cough (Primary Dx); Viral syndrome Information Start: 09-21-2021 End: 09-21-2021 Telemedicine consultation with patient Jesus Manuel Marion PA-C Work Phone: STEVE Nieves NANETTE [facility] Start: 09-18-2021 ambulatory Rosa Robertson MD Work Phone: Internal Medicine Comment on above: Cough Start: 09-10-2021 Telephone encounter Christian reza MD, PhD Work Phone: Endocrinology Comment on above: Medication Question; Results Start: 09-09-2021 End: 09-09-2021 Patient encounter procedure Facundo Pena DO Work Phone: Orthopaedics Comment on above: 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 (Primary Dx) Start: 09-06-2021 ambulatory Orquidea SOLIS SE SHOULDER SAWYER Comment on above: Breathing Problem Start: 08-25-2021 End: 08-25-2021 Patient encounter procedure Rosa Robertson MD Work Phone: Internal Medicine Comment on above: Routine physical exa mination (Primary Dx); SOB (shortness of breath); Weight gain; Anxiety; Low testosterone Start: 08-25-2021 End: 08-25-2021 Physical examination Rosa Robertson MD Work Phone: Internal Medicine Start: 08-24-2021 End: 08-24-2021 Subsequent hospital visit by physician Us Rodriguez Work Phone: Radiology Comment on above: Abnormal carotid ult rasound [R93.89] SOB (shortness of br eath) [R06.02] Start: 08-24-2021 ambulatory Marcia Juan Linette n RT(R) Radiology Comment on above: Radiology XR Start: 08-24-2021 Patient encounter procedure Marcia Spain RT(R) [facility] [place] [facility] Start: 08-20-2021 End: 08-20-2021 Patient encounter procedure Day Holman MD Work Phone: Neurology Comment on above: Post concussive synd soumya (Primary Dx); SOB (shortness of breath); Abnormal carotid ultrasound; Weight gain; Stenosis of right carotid artery Start: 08-16-2021 ambulatory Rocío SOLIS SHOULDER SAWYER Comment on above: Breathing Problem Start: 08-12-2021 End: 08-12-2021 Subsequent hospital visit by physician Jett Rangel MD Work Phone: Procedures Comment on above: Gastroesophageal ref lux disease without esophagitis [K21.9] Start: 08-10-2021 Telephone encounter Cassandra Garcia Internal Medicine Comment on above: Patient Update Start: 08-07-2021 Telephone encounter Siria oleary PA-C Work Phone: Pre Anesthesia Comment on above: Reschedule PACC Start: 08-06-2021 Telephone encounter Adam cho MD Work Phone: General Surgery Comment on above: EGD Instructions Schedule Surgery Start: 08-05-2021 End: 08-05-2021 ambulatory Cassandra Alvarado MD Work Phone: Internal Medicine [place] Comment on above: Gastroesophageal ref lux disease without esophagitis (Primary Dx); Obesity, Class I, BMI 30-34.9; Syncope, unspecified syncope type; Shortness of breath; Essential hypertension; Acute myocardial infarction, unspecified NM type, unspecified artery (HCC) Gastroesophageal ref lux disease without esophagitis (Primary Dx) Start: 08-05-2021 End: 08-05-2021 Telemedicine consultation with patient Cassandra Christiano RANDALL Work Phone: [address] Start: 08-04-2021 [facility]ing [facility] Work Phone: Neurology Comment on above: CMN Start: 10-24-2020 End: 10-24-2020 Subsequent hospital visit by physician Paola Leger 1 Work Phone: Radiology Comment on above: Pain [R52] Start: 08-29-2020 End: 08-29-2020 Subsequent hospital visit by physician Paola Leger 1 Work Phone: Radiology Comment on above: Pain [R52] Start: 08-22-2020 End: 08-22-2020 Subsequent hospital visit by physician Xr [facility] Maria M Radiology Comment on above: Low back pain with r ight-sided sciatica, unspecified back pain laterality, unspecified chronicity [M54.41] Start: 05-23-2020 End: 05-23-2020 Subsequent hospital visit by physician Xr Ortho [facility] Rej Work Phone: Radiology Comment on above: Post-operative pain [G89.18] Start: 05-15-2020 End: 05-15-2020 Subsequent hospital visit by physician Paola Leger 1 Work Phone: Radiology Comment on above: Bilateral hand pain [M79.641, M79.642] Start: 05-05-2020 End: 05-05-2020 Subsequent [facility] Comment on above: Surgery follow-up [Z 09] Start: 12-17-2019 End: 12-17-2019 Subsequent hospital visit by physician Maribell [facility] Jayne (1.5t) Work Phone: Radiology Comment on above: Elbow sprain, right, initial encounter [S53.401A] Procedures Date Procedure Procedure Detail Performing Clinician Start: 03-13-2024 Arthrocentesis aspir&/inj small jt/bursa w/o us Gatito Morgan DPM Work Phone: Start: 02-29-2024 Radex ankle complete minimum 3 views Scott Voss DPM Work Phone: Start: 02-03-2024 Radex ankle complete minimum 3 views Rena Nisha Nicolette PA Work Phone: Start: 01-31-2024 Arthrocentesis aspir&/inj small jt/bursa w/o us Rik Rosenthal MD Work Phone: Start: 01-31-2024 End: 01-31-2024 Fluoroscopic guidance needle placement add on Rik Rosenthal MD Work Phone: Start: 01-11-2024 Radex fingr minimum 2 views Karli ferrell PA-C Work Phone: Start: 12-28-2023 Radex fingr minimum 2 views Rik Rosenthal MD Work Phone: Start: 10-24-2023 End: 10-24-2023 Radex fingr minimum 2 views Rik Rosenthal MD Work Phone: Start: 08-10-2023 Arthrocentesis aspir&/inj small jt/bursa w/o us Facundo Brownel DO Work Phone: Start: 12-02-2022 Radex hand minimum 3 views Mariah Anderson PA-C Work Phone: Start: 11-22-2022 Glucose blood reagent strip Heriberto gillis MD Work Phone: Start: 11-22-2022 Glucose blood reagent strip Heriberto gillis MD Work Phone: Start: 11-22-2022 Assay of magnesium Nj Thornton MD Work Phone: Start: 11-21-2022 Radex fingr minimum 2 views Dax pizarro MD Work Phone: Start: 11-21-2022 End: 11-21-2022 Thromboplastin time partial plasma/whole blood Saul Chavira MD Work Phone: Start: 11-21-2022 Glucose blood reagent strip Gato Rodriguez MD Work Phone: Start: 11-21-2022 Us abdominal real time w/image limited Nj Thornton MD Work Phone: Start: 11-21-2022 Assay of magnesium Nj Thornton MD Work Phone: Start: 11-20-2022 Iaad ia hpylori stool Jalyn Preciado DO Work Phone: Start: 11-20-2022 Glucose blood reagent strip Gato Rodriguez MD Work Phone: Start: 11-20-2022 End: 11-20-2022 Assay of triglycerides Taryn Jose MD Work Phone: Start: 11-20-2022 End: 11-20-2022 Glucose blood reagent strip Gato Rodriguez MD Work Phone: Start: 11-20-2022 Radiologic exam abdomen 1 view Jalyn Amaya vanessa DO Work Phone: Start: 11-20-2022 Urnls dip stick/tablet rgnt auto w/o microscopy Jalyn Preciado DO Work Phone: Start: 11-20-2022 Glucose blood reagent strip Gato Rodriguez MD Work Phone: Start: 11-20-2022 End: 11-20-2022 Assay of lipase Jalyn Preciado DO Work Phone: Start: 11-20-2022 Hepatic function panel Jalyn Preciado DO Work Phone: Start: 11-20-2022 End: 11-20-2022 Glucose blood reagent strip Gato Rodriguez MD Work Phone: Start: 11-20-2022 End: 11-20-2022 Glucose blood reagent strip Gato Rodriguez MD Work Phone: Start: 11-20-2022 End: 11-20-2022 Assay of magnesium Nj Thornton MD Work Phone: Start: 11-19-2022 End: 11-20-2022 Glucose blood reagent strip Gato Rodriguez MD Work Phone: Start: 11-19-2022 End: 11-19-2022 Glucose blood reagent strip Gato Rodriguez MD Work Phone: Start: 11-19-2022 End: 11-19-2022 Glucose blood reagent strip Taryn Jose MD Work Phone: Start: 11-19-2022 End: 11-19-2022 Glucose blood reagent strip Taryn Jose MD Work Phone: Start: 11-19-2022 End: 11-19-2022 Assay of triglycerides Taryn Jose MD Work Phone: Start: 11-19-2022 End: 11-19-2022 Glucose blood reagent strip Taryn Jose MD Work Phone: Start: 11-19-2022 Glucose blood reagent strip Taryn Jose MD Work Phone: Start: 11-19-2022 End: 11-19-2022 Glucose blood reagent strip Taryn Jose MD Work Phone: Start: 11-19-2022 End: 11-19-2022 Glucose blood reagent strip Taryn Jose MD Work Phone: Start: 11-19-2022 End: 11-19-2022 Glucose blood reagent strip Taryn Jose MD Work Phone: Start: 11-19-2022 Lipoprotein dir leon high density cholesterol Michela Anguiano MD Work Phone: Start: 11-19-2022 Culture bacterial blood aerobic w/id isolates Michela Anguiano MD Work Phone: Start: 11-19-2022 End: 11-19-2022 Assay of lactate Michela Anguiano MD Work Phone: Start: 11-19-2022 Radiology Comparison study - date and time Joon Suarez MD Work Phone: Start: 11-19-2022 Drug screen class list a Michela ren MD Work Phone: Start: 11-19-2022 Urnls dip stick/tablet rgnt auto w/o microscopy Michela Anguiano MD Work Phone: Start: 11-19-2022 Lipid 1996 panel - Serum or Plasma Colle en Federico DPM Work Phone: Start: 11-19-2022 Ecg routine ecg w/least 12 lds trcg only w/o i&r Cayetano Ruano MD Work Phone: Start: 11-18-2022 Radex fingr minimum 2 views Kathy Drake PA-C Work Phone: Start: 11-18-2022 Ct abdomen & pelvis w/contrast material Cayetano Ruano MD Work Phone: Start: 11-18-2022 CT of thoracic and lumbar spine Kathy Drake PA-C Work Phone: Start: 11-18-2022 Assay of ferritin Michela Anguiano MD Work Phone: Start: 11-18-2022 Blood typing, ABO, Rho(D) and RBC antibody screening Cristal Manuel MD Work Phone: Start: 11-18-2022 End: 11-18-2022 Drug screen quantitative alcohols Cristal gibbons MD Work Phone: Start: 11-18-2022 Antibody screen Rosa Robertson Comment on above: Order Comment: CONCHITA CAMARGO TO DRAW,KAH Result Comment: PERF ORMED BY: [facility] [address] [place] [address] PATHOLOGIST BURGL[employer]ARM SUPERINTENDENT YFN SAMUEL M.D. Start: 11-18-2022 Computed tomography of abdomen and pelvis with contrast MD Rosa Robertson Work Phone: Start: 11-18-2022 CT cervical spine without contrast MD Rachael Robertson Work Phone: Start: 11-18-2022 CT of head without contrast MD Rosa Robertson Work Phone: Start: 11-18-2022 CT of thorax with contrast MD Rosa Robertson Work Phone: Start: 11-18-2022 Plain chest X-ray MD Rosa Robertson Work Phone: Start: 06-21-2022 Fluoroscopy during operation Prem soto MD Work Phone: Start: 02-09-2022 Radex foot complete minimum 3 views Gatito Morgan DPM Work Phone: Start: 12-11-2021 Radex foot complete minimum 3 views Gatito Morgan DPM Work Phone: Start: 12-11-2021 Radiologic exam chest 2 views Marine Short MD Work Phone: Start: 12-04-2021 Arthrocentesis aspir&/inj major jt/bursa w/o us Facundo D Pena DO Work Phone: Start: 11-10-2021 Arthrocentesis aspir&/inj major jt/bursa w/o us Facundo D Pena DO Work Phone: Start: 09-09-2021 Arthrocentesis aspir&/inj small jt/bursa w/o us Facundo D Pena DO Work Phone: Start: 08-24-2021 Duplex scan extracranial art compl bi study Day Holman MD Work Phone: Start: 08-24-2021 Radiologic exam chest single view Day cabezas MD Work Phone: Start: 08-12-2021 Colon ca scrn not hi rsk ind Elisa D Leesburg PA-C Work Phone: Start: 08-12-2021 Esophagogastroduodenoscopy transoral diagnostic Stephany Bucio MD Work Phone: Start: 08-12-2021 Colonoscopy Jett Rangel MD Work Phone: Start: 10-24-2020 Radiologic exam knee complete 4/more views Murphy Bucio MD Work Phone: Start: 10-09-2020 Adult depression screening assessment [facility] Work Phone: Start: 08-29-2020 Radex foot complete minimum 3 views Gatito Morgan DPM Work Phone: Start: 08-22-2020 End: 08-22-2020 Radex spine cervical 4 or 5 views Rosa Robertson MD Work Phone: Start: 05-23-2020 Radex hip unilateral with pelvis 2-3 views Prem Guthrie MD Work Phone: Start: 05-15-2020 Radex hand minimum 3 views Facundo Tyler Pena DO Work Phone: Start: 05-05-2020 Radex foot complete minimum 3 views Gatito Morgan DPM Work Phone: Start: 12-17-2019 Mri any jt upper extremity w/o contrast matrl Murphy Bucio MD Work Phone: Start: 10-19-2016 Colonoscopy [facility] Work Phone: Plan of Treatment Date Care Activity Detail Author Start: 11-18-2032 Tetanus vaccination [facility] Start: 11-18-2032 Urine microalbumin profile DTaP,Tdap,Td Vaccine (4 - Td or Tdap) [facility] Start: 08-13-2031 Screening for malignant neoplasm of colon [facility] Start: 02-28-2029 Prostate specific antigen measurement Prostate Cancer Screening Discussion [facility] Start: 10-15-2028 DTaP/Tdap/Td vaccine (3 - Td or Tdap) DTaP/Tdap/Td vaccine (3 - Td or Tdap) [facility] Start: 10-15-2028 Tetanus vaccination Tetanus (Td or Tdap) Booster [facility] Start: 10-15-2028 Urine microalbumin profile [facility] Start: 11-20-2027 Lipid 1996 panel - Serum or Plasma Lipid Screening [facility] Start: 11-20-2027 Lipid panel [facility] Start: 11-20-2027 LIPID SCREEN LIPID SCREEN [facility] Start: 12-11-2026 Diabetes Screening Diabetes Screening [facility] Start: 10-22-2026 Lipid panel Cholesterol [facility] Start: 10-22-2026 LIPID SCREEN LIPID SCREEN [facility] Start: 09-07-2026 LIPID SCREEN LIPID SCREEN [facility] Start: 09-07-2026 PROSTATE CANCER SCREENING DISCUSSION PROSTATE CANCER SCREENING DISCUSSION [facility] Start: 09-07-2026 Prostate specific antigen measurement Prostate Cancer Screening Discussion [facility] Start: 08-12-2026 Colonoscopy COLONOSCOPY [facility] Start: 08-12-2026 COLORECTAL CANCER SCREENING COLORECTAL CANCER SCREENING [facility] Start: 08-12-2026 Screening for malignant neoplasm of colon [facility] Start: 11-22-2025 DIABETES SCREEN DIABETES SCREEN [facility] Start: 11-22-2025 Diabetes Screening Diabetes Screening [facility] Start: 11-18-2025 DIABETES SCREEN DIABETES SCREEN [facility] Start: 02-28-2025 Annual PCP Team Chronic Disease Visit Annual PCP Team Chronic Disease Visit [facility] Start: 02-26-2025 DIABETES SCREEN DIABETES SCREEN [facility] Start: 12-27-2024 Annual PCP Team Chronic Disease Visit Annual PCP Team Chronic Disease Visit [facility] Start: 10-22-2024 DIABETES SCREEN DIABETES SCREEN [facility] Start: 09-18-2024 Annual PCP Team Chronic Disease Visit Annual PCP Team Chronic Disease Visit [facility] Start: 09-07-2024 DIABETES SCREEN DIABETES SCREEN [facility] Start: 07-12-2024 End: 07-12-2024 Patient encounter procedure 07/12/2024 1:00 PM EDT Office Visit Orthopaedics [address] [address] Gatito Morgan V, DPM [address] [facility] [place] [address] F/U 4 MONTHS Orthopaedics Comment on above: F/U 4 MONTHS Start: 06-29-2024 End: 06-29-2024 Admission to same day surgery center 06/29/2024 7:30 AM EST - 06/29/2024 10:00 AM EST Surgery [facility] [address] [place] [address] Rik Rosenthal MD [address] [facility] [place] [address] ARTHROPLASTY CARPOMETACARPAL JOINTS [facility] Comment on above: ARTHROPLASTY CARPOMETACARPAL JOINTS Start: 06-29-2024 End: 06-29-2024 Arthrp interpos intercarpal/metacarpal joints ARTHROPLASTY CARPOMETACARPAL JOINTS Primary arthrosis of first carpometacarpal joints, bilateral 06/29/2024 7:30 AM EST AV OR Start: 06-29-2024 Subsequent hospital visit by physician [facility] Comment on above: Primary arthrosis of first carpometacarp al joints, bilateral [M18.0] Start: 05-15-2024 End: 05-15-2024 Patient encounter procedure 05/15/2024 9:00 AM EST Office Visit [facility] [address] [place] [address] William Barraza MD [address] [place] [id number] post concussion headache [facility] Comment on above: post concussion headache Start: 03-14-2024 End: 03-14-2024 Patient encounter procedure 03/14/2024 9:00 AM EST Office Visit [facility] [address] [facility] [address] [place] [address] Brisa Cheng DPM [address] [facility] [address] [place] [address] [facility] Start: 03-13-2024 End: 03-13-2024 Patient encounter procedure 03/13/2024 1:45 PM EST Office [facility] [address] [facility] [place] [address] Gatito Morgan V, DPM [address] [facility] [place] [address] worsening right foot pain Orthopaedics Comment on above: worsening right foot pain Start: 03-08-2024 End: 03-08-2024 Patient encounter procedure 03/08/2024 1:00 PM EST Office Visit Orthopaedics [address] [place] [address] Fransisco Vides, DPM [address] [place] [address] worsening right foot pain Orthopaedics Comment on above: worsening right foot pain Start: 03-01-2024 End: 03-01-2024 ambulatory [facility] Comment on above: POST OP 12/13/2023 - Left thumb carpometa carpal arthroplasty 3 of 8 visits Start: 02-29-2024 End: 02-29-2024 Patient encounter procedure 02/29/2024 12:00 PM EDT Office Visit [facility] [address] [place] [address] Mya Rachel APRN.HEAD HOUSEKEEPER, DNP [address] [place] [address] B/L foot pain See triage note. [facility] Comment on above: B/L foot pain See triage note. Start: 02-24-2024 End: 02-24-2024 Patient encounter procedure 02/24/2024 10:30 AM EDT Office Visit Orthopaedics [address] [place] [address] Karli Acevedo PA-C [address] [place] [address] 3 week follow left hand Orthopaedics Comment on above: 3 week follow left hand Start: 02-16-2024 End: 02-16-2024 ambulatory [facility] Comment on above: POST OP 12/13/2023 - Left thumb carpometa carpal arthroplasty 2 of 8 visits Start: 02-13-2024 End: 02-13-2024 Patient encounter procedure Orthopaedics Comment on above: POST OP 12/30/2023 - Left thumb carpometa carpal arthroplasty POST OP 12/30/2023 - Left thumb carpometacarpal arthroplasty - CONSULT TO OCCUPATIONAL THERAPY Start: 02-08-2024 End: 02-08-2024 Patient encounter procedure Neurology Comment on above: yearly appt [facility] FOOT [facility] - [place] P ER DR. VOSS Start: 01-31-2024 End: 01-31-2024 ambulatory 01/31/2024 9:30 AM EDT OT/PT/Speech Visit [facility] [address] [facility] [place] [address] Mima Simpson, OTR/L [address] [facility] [place] [address] POST OP 12/13/2023 - Left thumb carpometacarpal arthroplasty [facility] Comment on above: POST OP 12/13/2023 - Left thumb carpometa carpal arthroplasty Start: 01-31-2024 End: 01-31-2024 Patient encounter procedure Orthopaedics Comment on above: POST OP 12/13/2023 - Left thumb carpometa carpal arthroplasty left thumb xr Start: 01-25-2024 End: 01-25-2024 Patient encounter procedure 01/25/2024 3:45 PM EDT Office Visit [facility] [address] [place] [address] [address] [place] [address] Outside labs / Cynthia [facility] Comment on above: Outside labs / Cynthia Start: 01-24-2024 DIABETES SCREEN DIABETES SCREEN [facility] Start: 01-16-2024 PROSTATE CANCER SCREENING DISCUSSION PROSTATE CANCER SCREENING DISCUSSION [facility] Start: 01-09-2024 End: 01-09-2024 Patient encounter procedure Orthopaedics Comment on above: POST OP 12/30/2023 - Left thumb carpometa carpal arthroplasty Start: 01-01-2024 Covid-19 Vaccine ( season) Covid-19 Vaccine ( season) [facility] Start: 01-01-2024 Covid-19 Vaccine ( season) Covid-19 Vaccine ( season) [facility] Start: 01-01-2024 Influenza vaccination [facility] Start: 12-30-2023 End: 12-30-2023 Admission to same day surgery center 12/30/2023 7:30 AM EDT - 12/30/2023 10:00 AM EDT Surgery [facility] [address] [place] [address] Rik Rosenthal MD [address] [place] [address] ARTHROPLASTY CARPOMETACARPAL JOINTS [facility] Comment on above: ARTHROPLASTY CARPOMETACARPAL JOINTS Start: 12-30-2023 End: 12-30-2023 Arthrp interpos intercarpal/metacarpal joints ARTHROPLASTY CARPOMETACARPAL JOINTS Primary arthrosis of first carpometacarpal joints, bilateral 12/30/2023 7:30 AM EDT AV OR Start: 12-30-2023 Subsequent hospital visit by physician [facility] Comment on above: Primary arthrosis of first carpometacarp al joints, bilateral [M18.0] Start: 12-28-2023 End: 12-28-2023 Patient encounter procedure Orthopaedics Comment on above: POST OP 12/13/2023 - Left thumb carpometa carpal arthroplasty CAST: left thumb hosptial follow up, percocet refill Start: 12-14-2023 End: 12-14-2023 Admission to same day surgery center 12/14/2023 11:40 AM EDT PAT Pre Anesthesia [address] [place] [address] 2, [facility] [address] [place] [address] PACC, SURGERY 12/30/2023 - Left thumb carpometacarpal arthroplasty Pre Anesthesia Comment on above: PACC, SURGERY 12/30/2023 - Left thumb car pometacarpal arthroplasty Start: 12-13-2023 End: 12-13-2023 Admission to same day surgery center 12/13/2023 9:50 AM EDT - 12/13/2023 12:50 PM EDT Surgery Ambulatory Surgery [address] [place] [address] Rik Rosenthal MD [address] [place] [address] ARTHROPLASTY CARPOMETACARPAL JOINTS Ambulatory Surgery Comment on above: ARTHROPLASTY CARPOMETACARPAL JOINTS Start: 12-13-2023 End: 12-13-2023 Arthrp interpos intercarpal/metacarpal joints ARTHROPLASTY CARPOMETACARPAL JOINTS Primary arthrosis of first carpometacarpal joints, bilateral 12/13/2023 9:50 AM EDT [facility]I FRAN[facility] Start: 12-13-2023 Subsequent hospital visit by physician 12/13/2023 9:50 AM EDT Hospital Encounter Ambulatory Surgery [address] [place] [address] Rik Rosenthal MD [address] [place] [address] Primary arthrosis of first carpometacarpal joints, bilateral [M18.0] Ambulatory Surgery Comment on above: Primary arthrosis of first carpometacarp al joints, bilateral [M18.0] Start: 12-13-2023 End: 12-13-2023 Admission to same day surgery center 12/13/2023 7:30 AM EDT - 12/13/2023 10:25 AM EDT Surgery Ambulatory Surgery [address] [place] [address] Rik Rosenthal MD [address] [place] [address] ARTHROPLASTY CARPOMETACARPAL JOINTS Ambulatory Surgery Comment on above: ARTHROPLASTY CARPOMETACARPAL JOINTS Start: 12-13-2023 End: 12-13-2023 Arthrp interpos intercarpal/metacarpal joints [facility] Start: 12-13-2023 Subsequent hospital visit by physician 12/13/2023 7:30 AM EDT Hospital Encounter Ambulatory Surgery [address] [place] [address] Rik Rosenthal MD [address] [place] [address] Primary arthrosis of first carpometacarpal joints, bilateral [M18.0] Ambulatory Surgery Comment on above: Primary arthrosis of first carpometacarp al joints, bilateral [M18.0] Start: 12-05-2023 End: 12-05-2023 Patient encounter procedure [employer] Phone Screening Comment on above: SURGERY 12/30/2023 - Left thumb carpometa carpal arthroplasty SURGERY 12/13/2023 - Left thumb carpometacarpal arthroplasty Start: 11-29-2023 End: 02-28-2024 Basic metabolic 2000 panel - Serum or Plasma BASIC METABOLIC PANEL Lab Routine Pre-op examination Expected: 11/29/2023, Expires: 02/28/2024 [facility] Work Phone: Comment on above: Expected: 11/29/2023, Expires: Start: 11-23-2023 Basic metabolic 2000 panel - Serum or Plasma Basic Metabolic Panel [facility] Start: 11-23-2023 Creatinine measurement Basic Metabolic Panel [facility] Start: 11-23-2023 [facility] Start: 11-22-2023 FECAL OCCULT BLOOD FECAL OCCULT BLOOD [facility] Start: 11-22-2023 Screening for malignant neoplasm of colon [facility] Start: 11-20-2023 Hepatitis B surface antibody level LDL CHOLESTEROL [facility] Start: 11-19-2023 Basic metabolic 2000 panel - Serum or Plasma Basic Metabolic Panel [facility] Start: 11-09-2023 End: 11-09-2023 Anesthesia consultation 11/09/2023 9:10 AM EDT PAT Pre Anesthesia [address] [place] [address] is the patient an LR ASC candidate? Pre Anesthesia Comment on above: is the patient an LR ASC candidate? Start: 10-24-2023 End: 10-24-2023 Patient encounter procedure Orthopaedics Comment on above: Surgery Consult, Bilateral Thumb bilateral thumbs Start: 09-24-2023 ANNUAL PCP TEAM CHRONIC DISEASE VISIT ANNUAL PCP TEAM CHRONIC DISEASE VISIT [facility] Start: 09-19-2023 End: 09-19-2023 Patient encounter procedure 09/19/2023 11:40 AM EDT Office Visit Internal Medicine [address] [place] [address] [place] [address] [place] [address] Follow up- med review Internal Medicine Comment on above: Follow up- med review Start: 06-22-2023 GFR test (Diabetes, CKD 3-4, OR last GFR 15-59) GFR test (Diabetes, CKD 3-4, OR last GFR 15-59) [facility] Start: 05-02-2023 Behavioral Health Screening Behavioral Health Screening [facility] Start: 05-02-2023 Depression Assessment Depression Assessment [facility] Start: 04-23-2023 ANNUAL PCP TEAM CHRONIC DISEASE VISIT ANNUAL PCP TEAM CHRONIC DISEASE VISIT [facility] Start: 04-16-2023 ANNUAL PCP TEAM CHRONIC DISEASE VISIT ANNUAL PCP TEAM CHRONIC DISEASE VISIT [facility] Start: 03-04-2023 ANNUAL PCP TEAM CHRONIC DISEASE VISIT ANNUAL PCP TEAM CHRONIC DISEASE VISIT [facility] Start: 02-22-2023 ANNUAL PCP TEAM CHRONIC DISEASE VISIT ANNUAL PCP TEAM CHRONIC DISEASE VISIT [facility] Start: 01-30-2023 Influenza vaccination [facility] Start: 12-31-2022 Covid-19 Vaccine () Covid-19 Vaccine () [facility] Start: 12-31-2022 Influenza vaccination [facility] Start: 12-29-2022 End: 12-29-2022 Patient encounter procedure 12/29/2022 8:00 AM EDT Office Visit [facility] Orthopedic Hand [address] [place] [address] Baciilo Mclaughlin MD [address] [place] [address] [facility] Orthopedic Hand Start: 12-20-2022 End: 12-20-2022 ambulatory [facility] Start: 12-20-2022 End: 12-20-2022 Patient encounter procedure 12/20/2022 9:30 AM EDT Office Visit [facility] Liver [address] [place] [address] Michael Mayorga MD [address] [place] [address] [facility] Start: 12-09-2022 Plain chest X-ray XR chest 2V* [facility] Start: 12-09-2022 XR Chest 2 Views [facility] Start: 12-03-2022 ANNUAL PCP TEAM CHRONIC DISEASE VISIT ANNUAL PCP TEAM CHRONIC DISEASE VISIT [facility] Start: 11-26-2022 End: 11-26-2022 ambulatory [facility] Start: 10-22-2022 Hepatitis B surface antibody level LDL CHOLESTEROL [facility] Start: 10-18-2022 End: 10-18-2022 Patient encounter procedure 10/18/2022 Appointment Physical Therapy Judy Harris, PT [facility] Start: 10-13-2022 End: 10-13-2022 Patient encounter procedure 10/13/2022 Appointment Physical Therapy Irma Robles PTA [facility] Start: 10-11-2022 End: 10-11-2022 Patient encounter procedure 10/11/2022 Appointment Physical Therapy Judy Harris, PT [facility] Start: 10-06-2022 End: 10-06-2022 Patient encounter procedure 10/06/2022 Appointment Physical Therapy [facility] Start: 10-04-2022 End: 10-04-2022 Patient encounter procedure 10/04/2022 Appointment Physical Therapy Irma Robles PTA [facility] Start: 09-30-2022 End: 09-30-2022 Patient encounter procedure 09/30/2022 Appointment Physical Therapy Judy Harris, PT [facility] Start: 09-28-2022 End: 09-28-2022 Patient encounter procedure 09/28/2022 Appointment Physical Therapy Irma Robles, SHUTTLE REPAIRER [facility] Start: 09-25-2022 ANNUAL PCP TEAM CHRONIC DISEASE VISIT ANNUAL PCP TEAM CHRONIC DISEASE VISIT [facility] Start: 09-21-2022 ANNUAL PCP TEAM CHRONIC DISEASE VISIT ANNUAL PCP TEAM CHRONIC DISEASE VISIT [facility] Start: 09-07-2022 Hepatitis B surface antibody level LDL CHOLESTEROL [facility] Start: 08-25-2022 ANNUAL PCP TEAM CHRONIC DISEASE VISIT ANNUAL PCP TEAM CHRONIC DISEASE VISIT [facility] Start: 08-10-2022 Pelvis X-ray XR pelvis 1-2V [facility] Start: 08-10-2022 Plain X-ray of left femur XR femur LT 2V* [facility] Start: 08-10-2022 XR Femur - left 2 Views [facility] Start: 04-11-2023 XR Pelvis 1 or 2 Views [facility] Start: 08-05-2022 ANNUAL PCP TEAM CHRONIC DISEASE VISIT ANNUAL PCP TEAM CHRONIC DISEASE VISIT [facility] Start: 07-23-2022 End: 07-23-2022 Patient encounter procedure 07/23/2022 Office Visit Orthopedic Surgery Tiffanie Sifuentes PA [address] [place] [address] [facility] Start: 07-20-2022 ANNUAL PCP TEAM CHRONIC DISEASE VISIT ANNUAL PCP TEAM CHRONIC DISEASE VISIT [facility] Start: 07-05-2022 End: 07-05-2022 Patient encounter procedure 07/05/2022 Office Visit Orthopedic Surgery Tiffanie Sifuentes PA [address] [place] [address] [facility] Start: 2022 Hepatitis B (HBV) Vaccine (optional start 60+ years) Hepatitis B (HBV) Vaccine (optional start 60+ years) [facility] Start: 2022 RSV Vaccine (1 - 1-dose 60+ series) RSV Vaccine (1 - 1-dose 60+ series) [facility] Start: 2022 RSV Vaccine (1 - Risk 60-74 years 1-dose series) RSV Vaccine (1 - Risk 60-74 years 1-dose series) [facility] Start: 05-24-2022 LIPID SCREEN LIPID SCREEN [facility] Start: 05-02-2022 DEPRESSION ASSESSMENT DEPRESSION ASSESSMENT [facility] Start: 12-31-2021 Influenza vaccination [facility] Start: 10-09-2021 Adult depression screening assessment DEPRESSION SCREENING [facility] Start: 09-25-2021 End: 11-25-2021 BIOAVAIL TESTO/SHBG, ADULT MALE BIOAVAIL TESTO/SHBG, ADULT MALE Lab Routine Hypogonadism in male Expected: 09/25/2021, Expires: 11/25/2021 [facility] Work Phone: Comment on above: Expected: 09/25/2021, Expires: Start: 09-25-2021 End: 11-25-2021 Comprehensive metabolic 2000 panel - Serum or Plasma COMP METABOLIC PANEL Lab Routine Hypertriglyceridemia Expected: 09/25/2021, Expires: 11/25/2021 [facility] Work Phone: Comment on above: Expected: 09/25/2021, Expires: 2 Start: 09-25-2021 End: 11-25-2021 Follitropin [Units/volume] in Serum or Plasma FSH BLD Lab Routine Hypogonadism in male Expected: 09/25/2021, Expires: 11/25/2021 [facility] Work Phone: Comment on above: Expected: 09/25/2021, Expires: 2 Start: 09-25-2021 End: 11-25-2021 LIPID PANEL BASIC [facility] Work Phone: Comment on above: Expected: 09/25/2021, Expires: 2 Start: 09-25-2021 End: 11-25-2021 Lutropin [Units/volume] in Serum or Plasma LUTEINIZING HORMONE Lab Routine Hypogonadism in male Expected: 09/25/2021, Expires: 11/25/2021 [facility] Work Phone: Comment on above: Expected: 09/25/2021, Expires: 2 Start: 09-25-2021 End: 11-25-2021 Prolactin [Mass/volume] in Serum or Plasma PROLACTIN BLD Lab Routine Hypogonadism in male Expected: 09/25/2021, Expires: 11/25/2021 [facility] Work Phone: Comment on above: Expected: 09/25/2021, Expires: 2 Start: 09-25-2021 End: 11-25-2021 Thyrotropin [Units/volume] in Serum or Plasma TSH BLD Lab Routine Hypogonadism in male Expected: 09/25/2021, Expires: 11/25/2021 [facility] Work Phone: Comment on above: Expected: 09/25/2021, Expires: 2 Start: 09-21-2021 End: 10-05-2021 Influenza virus A and B RNA and SARS-CoV-2 (COVID-19) N gene panel - Respiratory specimen by KAVITA with probe detection COVID WITH FLUA+B, ROUTINE Microbiology Routine Cough Viral syndrome Expected: 09/21/2021, Expires: 10/05/2021 [facility] Work Phone: Comment on above: Expected: 09/21/2021, Expires: 2 Start: 08-20-2021 End: 10-20-2021 Hemoglobin A1c/Hemoglobin.total in Blood HGB A1C Lab Routine Abnormal carotid ultrasound Expected: 08/20/2021, Expires: 10/20/2021 [facility] Work Phone: Comment on above: Expected: 08/20/2021, Expires: 2 Start: 08-20-2021 End: 10-20-2021 T3 BLD T3 BLD Lab Routine Weight gain Expected: 08/20/2021, Expires: 10/20/2021 [facility] Work Phone: Comment on above: Expected: 08/20/2021, Expires: 2 Start: 08-20-2021 End: 10-20-2021 T4 FREE/FREE THYROX T4 FREE/FREE THYROX Lab Routine Weight gain Expected: 08/20/2021, Expires: 10/20/2021 [facility] Work Phone: Comment on above: Expected: 08/20/2021, Expires: 2 Start: 08-20-2021 End: 10-20-2021 Thyrotropin [Units/volume] in Serum or Plasma TSH BLD Lab Routine Weight gain Expected: 08/20/2021, Expires: 10/20/2021 [facility] Work Phone: Comment on above: Expected: 08/20/2021, Expires: 2 Start: 08-05-2021 End: 10-05-2021 Comprehensive metabolic 2000 panel - Serum or Plasma COMP METABOLIC PANEL Lab Routine Gastroesophageal reflux disease without esophagitis Expected: 08/05/2021, Expires: 10/05/2021 [facility] Work Phone: Comment on above: Expected: 08/05/2021, Expires: 2 Start: 08-05-2021 End: 10-05-2021 LIPID PANEL BASIC LIPID PANEL BASIC Lab Routine Acute myocardial infarction, unspecified NM type, unspecified artery (HCC) Expected: 08/05/2021, Expires: 10/05/2021 [facility] Work Phone: Comment on above: Expected: 08/05/2021, Expires: 2 Start: 05-02-2021 DEPRESSION ASSESSMENT DEPRESSION ASSESSMENT [facility] Start: 02-25-2021 COVID-19 VACCINE (3 - Booster for Pfizer series) COVID-19 VACCINE (3 - Booster for Pfizer series) [facility] Start: 11-20-2020 COVID-19 VACCINE (3 - Booster for Pfizer series) COVID-19 VACCINE (3 - Booster for Pfizer series) [facility] Start: 11-20-2020 COVID-19 VACCINE (3 - Pfizer series) COVID-19 VACCINE (3 - Pfizer series) [facility] Start: 11-20-2020 [facility] Start: 05-24-2018 Hepatitis B surface antibody level LDL CHOLESTEROL [facility] Start: 10-19-2017 Colonoscopy COLONOSCOPY [facility] Start: 10-19-2017 COLORECTAL CANCER SCREENING COLORECTAL CANCER SCREENING [facility] Start: 2012 Screening for malignant neoplasm of lung [facility] Start: 2012 Shingles (RZV) Vaccine (1 of 2) [facility] Start: 2012 Shingles vaccine (1 of 2) Shingles vaccine (1 of 2) [facility] Start: 2012 SHINGRIX VACCINE (1 of 2) SHINGRIX VACCINE (1 of 2) [facility] Start: 2007 COLOGUARD (FIT-DNA) COLOGUARD (FIT-DNA) [facility] Start: [address] COLONOGRAPHY [facility] Start: 2007 FECAL OCCULT BLOOD FECAL OCCULT BLOOD [facility] Start: 2007 Screening for malignant neoplasm of colon [facility] Start: 2007 SIGMOIDOSCOPY SIGMOIDOSCOPY [facility] Start: 1981 Hepatitis A (HAV) Vaccine (optional start 19+ years) Hepatitis A (HAV) Vaccine (optional start 19+ years) [facility] Start: 1981 ONE PNEUMOVAX PRIOR TO AGE 65 ONE PNEUMOVAX PRIOR TO AGE 65 [facility] Start: 1980 BP CONTROLLED (<130/80) BP CONTROLLED (<130/80) [facility] Start: 1980 Depression Screening Depression Screening [facility] Start: 1980 Hepatitis C screening [facility] Start: 1980 HIV SCREENING HIV SCREENING [facility] Start: 1980 HIV screening HIV Screening [facility] Start: 1980 Urine screening for protein Diabetic Alb to Cr ratio (uACR) test [facility] Start: 1977 HIV screening [facility] Start: 1974 Depression Screen Depression Screen [facility] Start: 1972 Lipid panel Lipids [facility] Start: 1968 PNEUMOCOCCAL (1 - PCV) PNEUMOCOCCAL (1 - PCV) [facility] Start: 1968 Pneumococcal 0-64 years Vaccine (1 - PCV) Pneumococcal 0-64 years Vaccine (1 - PCV) [facility] Start: 1968 Pneumococcal vaccination [facility] Start: 1968 [facility] Start: 1962 Screening for malignant neoplasm of colon [facility] Arthrp interpos intercarpal/metacarpal joints ARTHROPLASTY CARPOMETACARPAL JOINTS Primary arthrosis of first carpometacarpal joints, bilateral [facility] Assay of magnesium [facility] Work Phone: Assay of phosphorus inorganic [facility] Assay of triglycerides [facility] Basic metabolic 2000 panel - Serum or Plasma [facility] Work Phone: CBC W Auto Differential panel - Blood [facility] Work Phone: End: 02-12-2023 Ct soft tissue neck w/contrast material CT NECK SOFT TISSUE W IVCON Radiology Routine Vocal cord nodule 1 Occurrences starting 01/13/2022 until 02/12/2023 [facility] Work Phone: Comment on above: 1 Occurrences starting 01/13/2022 until 02/12/2023 Culture bacterial blood aerobic w/id isolates [facility] End: 09-19-2022 Duplex scan extracranial art compl bi study US CAROTID BILAT Radiology Routine Abnormal carotid ultrasound 1 Occurrences starting 08/20/2021 until 09/19/2022 [facility] Work Phone: Comment on above: 1 Occurrences starting 08/20/2021 until 09/19/2022 Duplex scan extracranial art compl bi study US CAROTID BILAT Radiology Routine Abnormal carotid ultrasound 08/24/2021 7:46 PM EDT [facility] Work Phone: End: 08-05-2022 EGD DIAGNOSTIC EGD DIAGNOSTIC Endoscopy Routine Gastroesophageal reflux disease without esophagitis 1 Occurrences starting 08/05/2021 until 08/05/2022 [facility] Work Phone: Comment on above: 1 Occurrences starting 08/05/2021 until 08/05/2022 End: 11-18-2022 HIV 1 and 2 Ab and HIV 1 p24 Ag panel - Serum or Plasma by Immunoassay [facility] Work Phone: Patient Education [facility] Work Phone: Patient referral [facility] Work Phone: Radiologic exam ches t 2 views XR CHEST 2V FRONTAL/LAT Radiology STAT Cough 09/21/2021 4:13 PM EDT [facility] Work Phone: End: 10-25-2022 Radiologic exam chest 2 views XR CHEST 2V FRONTAL/LAT Radiology Routine Cough 1 Occurrences starting 09/25/2021 until 10/25/2022 [facility] Work Phone: Comment on above: 1 Occurrences starting 09/25/2021 until 10/25/2022 End: 09-19-2022 Radiologic exam chest single view XR CHEST 1V FRONTAL PORT Radiology Routine SOB (shortness of breath) 1 Occurrences starting 08/20/2021 until 09/19/2022 [facility] Work Phone: Comment on above: 1 Occurrences starting 08/20/2021 until 09/19/2022 End: 08-06-2022 Screening colonoscopy COLONOSCOPY SCREENING Endoscopy Routine Screening for colon cancer History of colonic polyps 1 Occurrences starting 08/06/2021 until 08/06/2022 [facility] Work Phone: Comment on above: 1 Occurrences starting 08/06/2021 until 08/06/2022 SURGICAL PATHOLOGY [facility] Work Phone: Comment on above: Release Upon Ordering for 1 Occurrences starting 08/12/2021, 1 completed End: 03-04-2025 XR Ankle - bilateral AP and Lateral and oblique XR ANKLE GENERAL 3V AP/LAT/OBL BILATERAL Radiology Routine Pain 1 Occurrences starting 02/03/2024 until 03/04/2025 [facility] Comment on above: 1 Occurrences starting 02/03/2024 until 03/04/2025 End: 03-04-2025 XR Foot - bilateral AP and Lateral and oblique XR FOOT GENERAL 3V AP/LAT/OBL BILATERAL Radiology Routine Pain 1 Occurrences starting 02/03/2024 until 03/04/2025 [facility] Work Phone: Comment on above: 1 Occurrences starting 02/03/2024 until 03/04/2025 End: 03-11-2023 XR FOOT GENERAL 3V AP/LAT/OBL RIGHT XR FOOT GENERAL 3V AP/LAT/OBL RIGHT Radiology Routine Surgical follow-up care 1 Occurrences starting 02/09/2022 until 03/11/2023 [facility] Work Phone: Comment on above: 1 Occurrences starting 02/09/2022 until 03/11/2023 XR FOOT GENERAL 3V AP/LAT/OBL RIGHT XR FOOT GENERAL 3V AP/LAT/OBL RIGHT Radiology Routine Surgical follow-up care 02/09/2022 2:13 PM EDT [facility] Work Phone: End: 07-05-2022 XR HIP 2-3 VW W PELVIS LEFT [facility] Work Phone: Comment on above: 1 Occurrences starting 07/05/2022 until 07/05/2022 [facility] Immunizations Immunization Date Immunization Notes Care Provider Fa [facility] 11-18-2022 tetanus toxoid, reduced diphtheria toxoid, and acellular pertussis vaccine, adsorbed MD Rosa Robertson Work Phone: [facility] 02-11-2022 influenza, injectabl e, quadrivalent, preservative free Diann Guillermina SENIOR BEHAVIORAL SCIENTIST Work Phone: [facility] 02-11-2022 influenza virus vaccine, unspecified formulation Ericka Sellers [facility] 09-25-2020 COVID-19 vaccine, ag e 12+ yr (PFIZER-BIONTECH - PURPLE TOP) [facility] Work Phone: [facility] 09-03-2020 COVID-19 vaccine, ag e 12+ yr (PFIZER-BIONTECH - PURPLE TOP) [facility] Work Phone: [facility] 02-03-2020 influenza virus vaccine, unspecified formulation Prem Guthrie MD Work Phone: [facility] Work Phone: 02-03-2020 influenza, injectabl e, quadrivalent, preservative free [facility] Work Phone: [facility] 01-13-2019 influenza virus vaccine, unspecified formulation Prem Guthrie MD [facility] Work Phone: 01-13-2019 influenza, injectabl e, quadrivalent, preservative free [facility] Work Phone: [facility] 10-15-2018 tetanus toxoid, reduced diphtheria toxoid, and acellular pertussis vaccine, adsorbed [facility] Work Phone: [facility] 01-31-2018 influenza, injectabl e, quadrivalent, preservative free [facility] Work Phone: [facility] 01-24-2015 tetanus toxoid, reduced diphtheria toxoid, and acellular pertussis vaccine, adsorbed [facility] Work Phone: [facility] Payers Date Payer Category Payer Self-pay [id number] 2021 Medicaid (Managed Care) [employer] [id number] 2021 Unknown [id number] 2017 Medicaid [employer] [employer] [employer] [id number] 2017-Present [phone] [address] [place] [id number] Medicaid [id number] 2017 Medicaid [id number] 2017 Unknown [id number]. [id number] 1962 Unknown [id number] [id number]. 182 1962 Unknown [id number] 2.16.840.1.322085.3.579.2. 182 1962 Unknown [id number] 2.16.840.1.286576.3.579.2. 182 1962 Unknown [id number] 2.16.840.1.176345.3.579.2. 182 1962 Unknown [id number] 2.16.840.1.913046.3.579.2. 182 1962 Unknown [id number] 2.16.840.1.965819.3.579.2. 182 1962 Unknown [id number] 2.16.840.1.354376.3.579.2. 182 1962 Unknown [id number] 2.16.840.1.021504.3.579.2. 182 1962 Unknown [id number] 2.16.840.1.921336.3.579.2. 1259 1962 Unknown [id number] 2.16.840.1.981803.3.579.2. 1259 1962 Unknown [id number] 2.16.840.1.549074.3.579.2. 1259 1962 Unknown [id number] 2.16.840.1.762229.3.579.2. 1259 1962 Unknown [id number] 2.16.840.1.253338.3.579.2. 1259 1962 Unknown [id number] 2.16.840.1.713458.3.579.2. 1259 Unknown [id number] 2.16.840.1.349363.3.579.2. 531 Unknown [id number] 2.16.840.1.376338.3.579.2. 531 Unknown [id number] [id number]. 531 Unknown [id number]. 531 Social History Date Type Detail Facility Start: 09-25-2019 End: 05-06-2021 Tobacco smoking status NHIS Ex-smoker [facility] Start: 09-16-2009 End: 12-31-2020 History of tobacco use Current smoker [facility] Start: 05-02-1988 End: 12-31-2020 History of tobacco use Cigarette Smoker [facility] Start: 05-06-2021 End: 12-28-2023 Cigarettes smoked current (pack per day) - Reported 1 [facility] Start: 05-06-2021 End: 12-28-2023 Tobacco use and exposure User of smokeless tobacco [facility] Start: 07-20-2021 End: 09-19-2023 Alcohol intake Ex-drinker (finding) [facility] Start: 10-09-2020 History SDOH Alcohol Frequency 3 [facility] Start: 10-09-2020 History SDOH Alcohol Std Drinks 1 [facility] Start: 10-09-2020 History SDOH Alcohol Binge 2 [facility] Start: 04-08-2020 History SDOH Alcohol Comment 12 shots a day. [facility] Start: 10-09-2020 History SDOH Social Connections Phone 5 [facility] Start: 10-09-2020 History SDOH Social Connections Living 7 [facility] Start: 10-09-2020 History SDOH Physica l Activity DPW 0 [facility] Start: 10-09-2020 Education 12 [facility] Start: 01-13-2018 End: 12-29-2021 Tobacco Comment Off and on; quit October 2017 again. [facility] Start: 1960 Sex Assigned At Not on file [facility] Start: 07-12-2021 End: 09-15-2021 Exposure to SARS-CoV-2 (event) Unable to assess [facility] Start: 11-17-2019 End: 07-05-2022 Exposure to SARS-CoV-2 (event) Not sure [facility] Start: 05-02-1988 End: 12-28-2023 Tobacco smoking status NHIS Smokes tobacco daily [facility] Work Phone: Start: 01-29-2022 End: 02-29-2024 Alcohol intake Current drinker of alcohol (finding) [facility] Start: 01-29-2022 History SDOH Alcohol Comment 2 shots a day, bourbon at 7 [facility] Start: 01-29-2022 Tobacco Comment Smokes less th an a pack a day, one and off quitter [facility] History of tobacco use Passive smoker [facility] Phone: Start: 06-14-2022 End: 02-03-2024 Tobacco use and exposure Smokeless tobacco non-user [facility] Phone: Start: 03-05-2020 End: 08-10-2022 Tobacco smoking status NHIS Current some day smoker [facility] Start: 1960 Sex Assigned At Male [facility] Start: 08-20-2022 Alcohol Comment occ. [facility] Phone: Start: 10-09-2020 End: 12-28-2023 Social connection and isolation panel [facility] Do you belong to any clubs or organizations such as faith groups, unions, fraternal or athletic groups, or school groups? No [facility] Are you now , , , , never or living with a partner? Never [facility] How often to you hav e a drink containing alcohol? 2-4 times a month [facility] How many standard drinks containing alcohol do you have on a typical day? 1 or 2 [facility] How often do you hav e 6 or more drinks on 1 occasion? Less than monthly [facility] How hard is it for y ou to pay for the very basics like food, housing, medical care, and heating Very hard [facility] Adult Depression Screening Assessment 2 [facility] Do you feel stress - tense, restless, nervous, or anxious, or unable to sleep at night because your mind is troubled all the time - these days [OSQ] Not at all [facility] (I/We) worried ed er (my/our) food would run out before (I/we) got money to buy more. Never true [facility] Tobacco smoking stat [facility] Start: 12-07-2022 Alcohol Comment patient report s stopped drinking 01/2022 was drinking 375 mL bourbon a day [facility] How often to you hav e a drink containing alcohol? 4 or more times a week [facility] Start: 02-03-2024 Tobacco smoking stat [facility] Never smoked tobacco [facility] Start: 02-22-2017 Alcohol Comment 2 beers/day [facility] NEGATED: Highlighted rowStart: NINF History of tobacco use Passive smoker [facility] Healthcare Medical Equipment Procedure Code Equipment Code Equipment Origin al Text Equipment Identifier Dates Culver Corkscrew Suturetape 5.5mm Full Thread 1.3mm Black Blue White - [id number] Start: 01-17-2019 Comment on above: Description: right s baldev 01/17/19 Cup Trident Ii T rit Culst [id number] Start: 01-31-2018 System Biocompos ite Implant Delivery Distal Biceps Repair - [id number] Start: 12-27-2019 Head 40mm Univer bernie Biolox Delta Tritanium Femoral Hip - [id number] Start: 01-31-2018 Stem Accolade Ii 6 132d Femoral - [id number] Start: 01-31-2018 Liner 40mm 0d F X3 5.8mm Acetabular Hip - [id number] Start: 01-31-2018 Sleeve V40 -2.5m m Offset Burton Taper Titanium Adapter Hip - [id number] Start: 01-31-2018 Impl Capped Hip H2 Total Adv Other Head Chris - [id number] Start: 06-21-2022 Comment on above: Description: H2 CAP $4800.00 + UPCHARGE $300 TRI CUP Stem Fem Sz 5 L1 08mm Nk L35mm 40mm Offset 132deg Hip Ti - [id number] FDA Start: 06-21-2022 [Order 1 Start] Name: dextrose 10 % iv infusion Signed Summary: 125 mL, Intravenous, at 999 mL/hr, PRN, Starting on Tue11/19/22 at 1323, Until Discontinued, For blood glucose less than 70 mg/dL, with IV access and with loss of consciousness or unable to swallow or NPO [Order 1 End] [Order 2 Start] Name: glucagon (GLUCAGEN) 1 MG/ML injection kit Signed Summary: 1 mg, Subcutaneous, PRN, Starting on Tue11/19/22 at 1323, Until Discontinued, For blood glucose less than 70 mg/dL and with no IV access with loss of consciousness or alert and unable to swallow. [Order 2 End] [Order 3 Start] Name: dextrose (GLUTOSE) 40 % oral gel Signed Summary: 15 g of glucose, Buccal, PRN, Starting on Tue11/19/22 at 1323, Until Discontinued, blood glucose between 50 - 69 mg/dL, and with no IV access, alert and able to swallow. [Order 3 End] [Order 4 Start] Name: dextrose (GLUTOSE) 40 % oral gel Signed Summary: 30 g of glucose, Buccal, PRN, Starting on Tue11/19/22 at 1323, Until Discontinued, blood glucose of 49mg/dL or less, and with no IV access, alert and able to swallow. [Order 4 End] [id number] Start: 11-19-2022 Clinical Notes 12-11-2014 to 03-24-2024 Telephone Encounter - Ivett Snyder LPN - 03/24/2024 12:54 PM ESTTelephone Encounter - Ivett Snyder LPN - 03/24/2024 12:54 PM Gatito Evans V, DPM - 03/13/2024 3:31 PM EST Note Date & Type Note Facility 03-24-2024 Telephone encounter Note Pt calling back stating he has been routed around back and forth. Pt stating [facility] told pt that there is nobody to page for neuro and sent pt back to noc. Pt stating he will go to the ED for evaluation and treatment for his headache/migraine. Ivett Snyder LPN [facility] 03-24-2024 Miscellaneous Notes Pt calling back stating he has been routed around back and forth. Pt stating [facility] told pt that there is nobody to page for neuro and sent pt back to noc. Pt stating he will go to the ED for evaluation and treatment for his headache/migraine. Ivett Snyder LPN Patient calling regarding migraines and eye problems post TBI's. Conferenced to [facility] Sylvia castillo to speak with provider certification technician for Dr. Cory Coronado. documented in this encounter [facility] 03-24-2024 Telephone encounter Note Patient calling regarding migraines and eye problems post TBI's. Conferenced to [facility] Sylvia castillo to speak with provider certification technician for Dr. Cory Coronado. [facility] 03-13-2024 Note HNO ID: [id number] Author: GATITO MORGAN DPM Service: ? Author Type: Physician Type: Progress Notes Filed: 03/13/2024 15:36 Note Text: HPI: José presents for follow-up today. He relates that he is noticing more pain over the right first metatarsophalangeal joint area. He has had a cheilectomy over the area in the past. He relates that he stubbed his foot approximately 2 months ago. He stubbed the right great toe against the floor and it has been is still painful. And he relates the pain is concentrated over the first metatarsophalangeal joint area. He is here today for further evaluation. ROS: Constitutional: denies Nausea/Vominting/Fever. Eyes, Ears, Nose, and Throat: denies blurred vision, difficulty eating or tinnitis. Cardiovascular: History of acute NM; history of hypertension GI: History of GERD : denies incontinence/polyuria Dermatology: denies ulcers/sores. Musculoskeletal: See HPI Respiratory: denies asthma/emphysema/pneumonia Psychiatric: History of depression Neurological: denies memory loss or paralysis Endocrine: denies thyroid disorder or diabetes LOWER EXTREMITY EXAM: Patient A AND O X's 3, NAD. VASC: Palpable pedal pnoted bilaterally. DERM: No evidence of open sores noted on both feet today. ORTHO: He has pain with palpation over the first metatarsophalangeal joint on the right foot. Pain also noted with range of motion of the right hallux at the joint area. On the left foot, patient relates no pain with range of motion over the site. NEURO: Able to discern between light and dull touch on both feet. RADIOGRAPHS: Decreased joint space noted over the first metatarsophalangeal joint of the right foot. ASSESSMENT: Hallux limitus, right foot TREATMENT/PLAN: -I discussed treatment options with patient. Patient relates that he wishes to try corticosteroid injection at this time. Small Joint Arthro/Inj: R great MTP Informed Consent Consent Obtained: Verbal Burton Protocol A moment to CARE was completed. SIGN IN Personnel directly involved with the procedure wore the appropriate PPE. Special Equipment: N/A Patient/Surrogate Stated/Verified: Date of , Patient name, Relevant allergies and Intended procedure TIME OUT Intended patient and procedure match the source document(s). 03/13/2024 3:34 PM The procedure site was prepped in the usual sterile fashion. Medications: 4 mg dexAMETHasone sodium phosphate 4 mg/mL Anesthetics: 0.5 mL ROPivacaine (PF) 5 mg/mL (0.5 %) Outcome: tolerated well, no immediate complications Post-injection instructions were reviewed with the patient and the patient voiced understanding of these instructions. SIGN OUT No specimen collected. [facility] 03-13-2024 History of Present illness Narrative Associated Order(s): Small Joint Arthro/Inj: R great MTP Post-Procedure Diagnose(s): Hallux rigidus, right foot; Osteoarthritis of right ankle and foot HPI: José presents for follow-up today. He relates that he is noticing more pain over the right first metatarsophalangeal joint area. He has had a cheilectomy over the area in the past. He relates that he stubbed his foot approximately 2 months ago. He stubbed the right great toe against the floor and it has been is still painful. And he relates the pain is concentrated over the first metatarsophalangeal joint area. He is here today for further evaluation. ROS: Constitutional: denies Nausea/Vominting/Fever. Eyes, Ears, Nose, and Throat: denies blurred vision, difficulty eating or tinnitis. Cardiovascular: History of acute NM; history of hypertension GI: History of GERD : denies incontinence/polyuria Dermatology: denies ulcers/sores. Musculoskeletal: See HPI Respiratory: denies asthma/emphysema/pneumonia Psychiatric: History of depression Neurological: denies memory loss or paralysis Endocrine: denies thyroid disorder or diabetes LOWER EXTREMITY EXAM: Patient A & O X's 3, NAD. VASC: Palpable pedal pnoted bilaterally. DERM: No evidence of open sores noted on both feet today. ORTHO: He has pain with palpation over the first metatarsophalangeal joint on the right foot. Pain also noted with range of motion of the right hallux at the joint area. On the left foot, patient relates no pain with range of motion over the site. NEURO: Able to discern between light and dull touch on both feet. RADIOGRAPHS: Decreased joint space noted over the first metatarsophalangeal joint of the right foot. ASSESSMENT: Hallux limitus, right foot TREATMENT/PLAN: -I discussed treatment options with patient. Patient relates that he wishes to try corticosteroid injection at this time. Small Joint Arthro/Inj: R great MTP Informed Consent Consent Obtained: Verbal Burton Protocol A moment to CARE was completed. SIGN IN Personnel directly involved with the procedure wore the appropriate PPE. Special Equipment: N/A Patient/Surrogate Stated/Verified: Date of , Patient name, Relevant allergies and Intended procedure TIME OUT Intended patient and procedure match the source document(s). 03/13/2024 3:34 PM The procedure site was prepped in the usual sterile fashion. Medications: 4 mg dexAMETHasone sodium phosphate 4 mg/mL Anesthetics: 0.5 mL ROPivacaine (PF) 5 mg/mL (0.5 %) Outcome: tolerated well, no immediate complications Post-injection instructions were reviewed with the patient and the patient voiced understanding of these instructions. SIGN OUT No specimen collected. documented in this encounter [facility] 03-08-2024 Telephone encounter Note Testosterone needs to go to [facility] in [facility], this is a second request. Thank you! [facility] 03-08-2024 Miscellaneous Notes Testosterone needs to go to [facility] in [facility], this is a second request. Thank you! documented in this encounter [facility] 03-06-2024 Note HNO ID: [id number] Author: MIMA SIMPSON, OTR/L Service: ? Author Type: Occupational Therapist Type: Progress Notes Filed: 03/06/2024 16:38 Note Text: 03/06/2024 [facility] OCCUPATIONAL THERAPY DISCONTINUANCE OF CARE Plan of Care Period: Start of Care Date: 01/31/24 Last Visit Date: 01/31/2024 Therapy Program: Patient did not return for follow up care as planned-cancelled/no show all follow-up sessions. Please refer to last visit note for interventions provided for this episode of care. Assessment: Unable to formally assess goal achievement. Reason for Discontinuation of Care: Patient has not returned to therapy or scheduled additional follow-up appointments. Mima Simpson, OTR/L #[id number] [facility] 03-05-2024 Telephone encounter Note Pt had lab work done would like testosterone refill to [facility] [place]. Please and thank you! [facility] 03-05-2024 Miscellaneous Notes Pt had lab work done would like testosterone refill to [facility]. Please and thank you! documented in this encounter [facility] 03-01-2024 Note HNO ID: [id number] Author: ?, ?, ? Service: ? Author Type: ? Type: Progress Notes Filed: 03/01/2024 13:09 Note Text: POPULATION HEALTH NAVIGATION OUTREACH Action/[facility] Support: Called pt to schedule an appt in Pain Management. Lvm for pt to call [phone] for scheduling. Reason for Outreach Care Gap/HCC or Scheduling Wellness Visits Care Gaps due: N/A Patient Contacted: Unable or unnecessary to reach patient: Left message [employer] message sent Navigation Signature: Kaylen Johns March 01, 2024 1:08 PM [facility] 03-01-2024 History of Present illness Narrative POPULATION HEALTH NAVIGATION OUTREACH Action/[facility] Support: Called pt to schedule an appt in Pain Management. Lvm for pt to call [phone] for scheduling. Reason for Outreach Care Gap/HCC or Scheduling Wellness Visits Care Gaps due: N/A Patient Contacted: Unable or unnecessary to reach patient: Left message [employer] message sent Navigation Signature: Kaylen Johns March 01, 2024 1:08 PM documented in this encounter [facility] 03-01-2024 Note Patient Outreach (NE TNAV) JOSÉ ROJAS ([id number]) 1960 M Date Time Provider Department 03/01/24 NO PCP NETRACHAELV During your visit today, we recorded the following information about you: Kaylen Johns 03/01/2024 1:09 PM Signed POPULATION HEALTH NAVIGATION OUTREACH Action/[facility] Support: Called pt to schedule an appt in Pain Management. Lvm for pt to call [phone] for scheduling. Reason for Outreach Care Gap/HCC or Scheduling Wellness Visits Care Gaps due: N/A Patient Contacted: Unable or unnecessary to reach patient: Left message [employer] message sent Navigation Signature: Kaylen Johns March 01, 2024 1:08 PM Allergies As of Date: 03/01/2024 (No Known Allergies) Date Reviewed: 02/27/2024 Reviewed by: Ange Duron, RN - Fully Assessed Prescriptions as of 03/01/2024 - gabapentin (NEURONTIN) 300 mg capsule Take 1 capsule by mouth three times a day for 90 days. - methocarbamol (ROBAXIN) 750 mg tablet Take 1 tablet by mouth three times a day. - losartan (COZAAR) 50 mg tablet take 1 tablet by mouth every day - metoprolol succinate ER (TOPROL XL) 50 mg 24 hr tablet take 1 tablet by mouth at bedtime - rosuvastatin (CRESTOR) 5 mg tablet take 1 tablet by mouth at bedtime - naproxen (NAPROSYN) 500 mg tablet TAKE 1 TABLET BY MOUTH TWICE DAILY NEEDED FOR PAIN (TAKE WITH FOOD) - pantoprazole DR (PROTONIX) 40 mg tablet take 1 tablet by mouth daily - escitalopram oxalate (LEXAPRO) 20 mg tablet TAKE 1 and ONE-HALF TABLETS BY MOUTH DAILY - LORazepam (ATIVAN) 0.5 mg Take 1 tablet by mouth daily at bedtime for 180 days. - tiZANidine (ZANAFLEX) 4 mg tablet TAKE 1 TABLET BY MOUTH TWICE DAILY NEEDED for headache - omega 3-xvv-fui-fish oil 300 mg (120 mg- 180mg)-1,000 mg cap take 2 capsules by mouth at bedtime - VITAMIN D 25 mcg (1,000 unit) tab tablet take 1 tablet by mouth daily - pramipexole (MIRAPEX) 0.125 mg tablet Take 1 tablet by mouth daily at bedtime. - semaglutide (OZEMPIC) 0.25 mg or 0.5 mg(2 mg/1.5 mL) pen Inject 0.25 mg subcutaneously one time a week. - acamprosate DR (CAMPRAL) 333 mg tablet Take 2 tablets by mouth three times daily. - VITAMIN B-2 100 mg tab Take 4 tablets by mouth once daily. - verapamil SR (CALAN SR, ISOPTIN SR) 180 mg CR tablet Take 1 tablet by mouth daily at bedtime. - galcanezumab-gnlm (EMGALITY PEN) 120 mg/mL pen Inject 1 mL subcutaneously once every month. Do not shake. Start after completing 240mg loading dose. - Ascorbic Acid 1,000 mg tablet TAKE 1 TABLET BY MOUTH DAILY - aspirin, enteric coated (ECOTRIN LOW STRENGTH) 81 mg EC tablet Take 1 tablet by mouth once daily. - fluticasone (FLONASE) 50 mcg/actuation nasal spray use 2 (TWO) sprays IN EACH NOSTRIL DAILY AT BEDTIME - CPAP New set up: AutoCPAP 5-15 cm H2O, mask (pt pref), filters, heated humidity AND tubing. Lifetime supplies. SUSANNAH G47.33. - testosterone cypionate (DEPO-TESTOSTERONE) 200 mg/mL injection INJECT 0.5 ml INTRAMUSCULARLY EVERY TEN days. Meds Comments as of 06/19/2023: 11/16/22 No medication changes with the past 30 days. Mary Leyva RN 06/19/2023 Patient states that he is only taking amitriptyline, metoprolol and tizanidine. Shelby Camargo RN Problem List As Of Date 03/01/2024 Noted Resolved Radicular pain of right lower extremity [M54.10]07/21/2010 Vitamin D deficiency [E55.9] 07/21/2010 Lumbago [M54.50] 07/21/2010 Chronic pain [G89.29] 07/21/2010 12/27/2019 Misuse of drugs [F19.90] 10/19/2010 Opioid dependence [F11.20] 10/19/2010 Myofascial pain syndrome [M79.18] 10/19/2010 Neck pain [M54.2] 05/24/2012 Lumbar spinal stenosis [M48.061] 09/01/2012 Testosterone deficiency [E34.9] 05/21/2013 Hypogonadism in male [E29.1] 07/09/2014 Osteoarthrosis, unspecified whether generalized*08/30/2014 Epididymal mass [N50.89] 09/04/2014 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] 09/26/2014 Right shoulder pain [M25.511] 12/11/2014 Cigarette nicotine dependence without complicat*12/11/2014 Pain in both feet [M79.671, M79.672] 12/11/2014 03/21/2018 Bilateral low back pain without sciatica [M54.5*12/11/2014 Cervicalgia [M54.2] 12/11/2014 Pain in joint, multiple sites [M25.50] 12/11/2014 03/21/2018 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*01/29/2015 Fibromyalgia [M79.7] 01/29/2015 Chest pain [R07.9] 06/30/2015 Syncope [R55] 06/14/2016 Heart palpitations [R00.2] 06/14/2016 Dizziness [R42] 06/24/2016 Mixed hyperlipidemia [E78.2] 08/30/2016 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na*08/30/2016 Encounter for screening for malignant neoplasm *10/19/2016 Anxiety [F41.9] 01/07/2017 Osteoarthritis of right hip [M16.11] 02/15/2017 Medial meniscus tear [S83.249A] 02/15/2017 HTN (hypertension) [I10] Floaters, bilateral [H43.393] 08/25/2017 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 [facility] 02-29-2024 Telephone encounter Note Pt was seen by Mya Rachel at 12 02/28 [facility] 02-29-2024 Miscellaneous Notes Pt was seen by Mya Rachel at 12 02/28 I can see him Wed 03/14 at 10:40 am, do not double book Patient calling back,offered an appt to be seen. Pt stated he would like to see ,wasn't happy with the prior provider he saw in November. 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 Warm transferred to triage Call to patient , no answer and left a brief voicemail message with call back to office Office to try calling again Also sent a [employer] message. come in to be seen, help schedule José is calling Rosa Robertson MD today to request pain medication for his legs. Patient has not been able to sleep in a long time. Also, having migraines. Please call patient to advise. Pharmacy: [facility] [place] Patient has been identified by name and birthdate. Duration of symptoms: N/A Person calling: self Call patient at: at home [phone] (home) [phone] (cell) Was an appointment scheduled: No Closing statement: Results or non-symptom based questions: Thank you for calling [facility], your call will be returned within the next business day. Thank you, Amy Gilmore documented in this encounter [facility] 02-29-2024 History of Present illness Narrative Radiology Service Progress Note PATIENT NAME: José Rojas DATE OF SERVICE: February 29, 2024 TIME: 11:34 AM PATIENT IDENTITY VERIFICATION COMPLETED USING TWO (2) IDENTIFIERS: Name and Date of confirmed by patient verbally. FALL SCREENING: Has the patient had 2 falls in the last year or 1 fall with injury or currently using an Ambulatory Assistive Device (Walker, Cane, Wheelchair, Crutches, etc.)? No PATIENT GENDER DATA: Male PATIENT RELEVANT IMPLANT DATA REVIEWED: Not Applicable PATIENT PRESENTS WITH AN IMPLANTABLE OR ATTACHED VIDEO TAPE DUPLICATOR: No RADIOLOGY DEPARTMENT: General X-ray: Exam(s) Completed: Lower Extremity X-Ray(s): Ankle, Right and Wt. Bearing and Foot, Right and Wt. Bearing PERIPHERAL IV DATA: Not applicable SIGNED BY: RT Caridad(Parminder) February 29, 2024 11:34 AM documented in this encounter [facility] 02-29-2024 Note HNO ID: [id number] Author: ADELITA GARZA RT(R) Service: ? Author Type: Technologist Type: Progress Notes Filed: 02/29/2024 11:34 Note Text: Radiology Service Progress Note PATIENT NAME: José Rojas DATE OF SERVICE: February 29, 2024 TIME: 11:34 AM PATIENT IDENTITY VERIFICATION COMPLETED USING TWO (2) IDENTIFIERS: Name and Date of confirmed by patient verbally. FALL SCREENING: Has the patient had 2 falls in the last year or 1 fall with injury or currently using an Ambulatory Assistive Device (Walker, Cane, Wheelchair, Crutches, etc.)? No PATIENT GENDER DATA: Male PATIENT RELEVANT IMPLANT DATA REVIEWED: Not Applicable PATIENT PRESENTS WITH AN IMPLANTABLE OR ATTACHED VIDEO TAPE DUPLICATOR: No RADIOLOGY DEPARTMENT: General X-ray: Exam(s) Completed: Lower Extremity X-Ray(s):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 orthosis as well as wear and care of orthosis. Billing * Evaluation Low Complexity: 1 Unit Therapeutic Exercise Treatment Minutes: 8 Self-Care/Home Management Treatment Minutes: 5 * L 3808 WHFO w/out joints (long opponens, thumb spica, intrinsic gutter, resting, anti-spasticity, EXOS, dorsal block) Quantity: 1 Fabrication time for custom splint (minutes): 12 Skilled Treatment Time Minutes (timed and untimed codes): 42 Total Session Time (minutes): 42 Session Start Time : 933 Session Stop Time : 1015 SKIP Pierce #[id number] documented in this encounter [facility] 01-31-2024 Note HNO ID: [id number] Author: OTTO CARBONE AT Service: ? Author Type: Prison Officer Type: Progress Notes Filed: 01/31/2024 09:51 Note Text: Patient in today for scheduled appointment. Cast removed. Arm cleansed with soapy water. Examined by Dr. Rosenthal. No further cast room treatment needed at this time. Follow up as scheduled/PRN. Otto Carbone MS, ATC, ROT, OBT [facility] 01-31-2024 History of Present illness Narrative Patient in today for scheduled appointment. Cast removed. Arm cleansed with soapy water. Examined by Dr. Rosenthal. No further cast room treatment needed at this time. Follow up as scheduled/PRN. Otto Carbone MS, ATC, ROT, OBT documented in this encounter [facility] 01-31-2024 Note HNO ID: [id number] Author: RIK ROSENTHAL MD Service: ? Author Type: Physician Type: Progress Notes Filed: 01/31/2024 08:51 Note Text: OPERATIVE REPORT: PROCEDURE: Left thumb CMC arthroplasty with Roni trapezoid ectomy DATE: 12/13/2023 SURGICAL PATHOLOGY: FINAL DIAGNOSIS A. Left hand, trapezoid bone, excision: - Degenerative joint disease. 7 weeks out. He is doing well. No issues. He is hopeful for an injection to the base of the right thumb. PHYSICAL EXAM: All incisions are healing nicely. No signs of infection. Sensation intact in the superficial radial, median, radial, ulnar nerve distribution. AIN, PIN, ulnar motor intact. Able make a full fist. Intact EPL and FPL. Smooth and painless circumduction of the CMC. Tender at the right thumb first CMC with positive grind. PLAN: He will see occupational therapy today for a removable thermoplastic thumb spica splint. He will wear this at all times except for hygiene, motion exercises and when just sitting around. Occupational therapy will also work on motion exercises with him. I will see him back when he is 3 months out. At this point he will wean out of his brace and into normal use. We will do a fluoroscopic injection to the right thumb CMC joint today. Small Joint Arthro/Inj: R thumb CMC Informed Consent Consent Obtained: Verbal Burton Protocol A moment to CARE was completed. SIGN IN Sign in communication not applicable due to emergent procedure. Personnel directly involved with the procedure wore the appropriate PPE. Special Equipment: N/A Patient/Surrogate Stated/Verified: Patient name, Date of , Relevant allergies and Intended procedure TIME OUT Intended patient and procedure match the source document(s). Consent documented and matches the intended procedure. Relevant labs, photos, and/or imaging studies have been reviewed. Correct side/site marked and visible. Medications required for procedure verified. No fire risk assessment and interventions applicable. No implant(s) inserted. 01/31/2024 8:27 AM The procedure site was prepped in the usual sterile fashion. Details:Fluoroscopy guided Medications: 20 mg triamcinolone acetonide 40 mg/mL Anesthetics: 0.5 mL lidocaine (PF) 10 mg/mL (1 %) Outcome: tolerated well, no immediate complications Post-injection instructions were reviewed with the patient and the patient voiced understanding of these instructions. SIGN OUT No specimen collected. All instruments, equipment, possible retained foreign bodies accounted for. Post-procedure follow-up management communicated and Plan of Care Visit completed when applicable Significant pain relief with the injection. [facility] 01-31-2024 History of Present illness Narrative Associated Order(s): Small Joint Arthro/Inj: R thumb CMC Post-Procedure Diagnose(s): Primary osteoarthritis of first carpometacarpal joint of right hand Images from the original note were not included. OPERATIVE REPORT: PROCEDURE: Left thumb CMC arthroplasty with Roni trapezoid ectomy DATE: 12/13/2023 SURGICAL PATHOLOGY: FINAL DIAGNOSIS A. Left hand, trapezoid bone, excision: - Degenerative joint disease. 7 weeks out. He is doing well. No issues. He is hopeful for an injection to the base of the right thumb. PHYSICAL EXAM: All incisions are healing nicely. No signs of infection. Sensation intact in the superficial radial, median, radial, ulnar nerve distribution. AIN, PIN, ulnar motor intact. Able make a full fist. Intact EPL and FPL. Smooth and painless circumduction of the CMC. Tender at the right thumb first CMC with positive grind. PLAN: He will see occupational therapy today for a removable thermoplastic thumb spica splint. He will wear this at all times except for hygiene, motion exercises and when just sitting around. Occupational therapy will also work on motion exercises with him. I will see him back when he is 3 months out. At this point he will wean out of his brace and into normal use. We will do a fluoroscopic injection to the right thumb CMC joint today. Small Joint Arthro/Inj: R thumb CMC Informed Consent Consent Obtained: Verbal Burton Protocol A moment to CARE was completed. SIGN IN Sign in communication not applicable due to emergent procedure. Personnel directly involved with the procedure wore the appropriate PPE. Special Equipment: N/A Patient/Surrogate Stated/Verified: Patient name, Date of , Relevant allergies and Intended procedure TIME OUT Intended patient and procedure match the source document(s). Consent documented and matches the intended procedure. Relevant labs, photos, and/or imaging studies have been reviewed. Correct side/site marked and visible. Medications required for procedure verified. No fire risk assessment and interventions applicable. No implant(s) inserted. 01/31/2024 8:27 AM The procedure site was prepped in the usual sterile fashion. Details:Fluoroscopy guided Medications: 20 mg triamcinolone acetonide 40 mg/mL Anesthetics: 0.5 mL lidocaine (PF) 10 mg/mL (1 %) Outcome: tolerated well, no immediate complications Post-injection instructions were reviewed with the patient and the patient voiced understanding of these instructions. SIGN OUT No specimen collected. All instruments, equipment, possible retained foreign bodies accounted for. Post-procedure follow-up management communicated and Plan of Care Visit completed when applicable Significant pain relief with the injection. documented in this encounter [facility] 01-31-2024 Note HNO ID: [id number] Author: JEAN-CLAUDE MAN RT(R) Service: ? Author Type: Technologist Type: Progress Notes Filed: 01/31/2024 08:20 Note Text: Radiology Service Progress Note PATIENT NAME: José Rojas DATE OF SERVICE: January 31, 2024 TIME: 8:17 AM PATIENT IDENTITY VERIFICATION COMPLETED USING TWO (2) IDENTIFIERS: Name and Date of confirmed by patient verbally. FALL SCREENING: Has the patient had 2 falls in the last year or 1 fall with injury or currently using an Ambulatory Assistive Device (Walker, Cane, Wheelchair, Crutches, etc.)? No PATIENT GENDER DATA: Male PATIENT RELEVANT IMPLANT DATA REVIEWED: Yes PATIENT PRESENTS WITH AN IMPLANTABLE OR ATTACHED VIDEO TAPE DUPLICATOR: No RADIOLOGY DEPARTMENT: General X-ray: Exam(s) Completed: Upper Extremity X-Ray(s): Fingers/Thumb, left PERIPHERAL IV DATA: Not applicable SIGNED BY: LATISHA Ma) January 31, 2024 8:17 AM [facility] 01-31-2024 History of Present illness Narrative Radiology Service Progress Note PATIENT NAME: José Rojas DATE OF SERVICE: January 31, 2024 TIME: 8:17 AM PATIENT IDENTITY VERIFICATION COMPLETED USING TWO (2) IDENTIFIERS: Name and Date of confirmed by patient verbally. FALL SCREENING: Has the patient had 2 falls in the last year or 1 fall with injury or currently using an Ambulatory Assistive Device (Walker, Cane, Wheelchair, Crutches, etc.)? No PATIENT GENDER DATA: Male PATIENT RELEVANT IMPLANT DATA REVIEWED: Yes PATIENT PRESENTS WITH AN IMPLANTABLE OR ATTACHED VIDEO TAPE DUPLICATOR: No RADIOLOGY DEPARTMENT: General X-ray: Exam(s) Completed: Upper Extremity X-Ray(s): Fingers/Thumb, left PERIPHERAL IV DATA: Not applicable SIGNED BY: RT Anil(R) January 31, 2024 8:17 AM documented in this encounter [facility] 01-26-2024 Telephone encounter Note Patient calling in to office. Verified by name and . Patient states that he has ongoing, chronic issues with right foot pain, for which he has seen Dr. Morgan in the past. States that he recently found out from his insurance company that they would allow for him to receive a pair of orthotic boots. He states that he checked with another flight surveyor that he saw recently for casting for inserts, but states he only prescribes shoes for diabetic patients. Patient states that about one week ago, he stubbed his right big toe on the concrete and has been having severe pain since the incident. Admits to swelling in right foot and ankle. States initially he had redness and warmth noted, but those have resolved. He also admits to protruding blood vessels around the injury initially, but has resolved. Enc[facility]aged [facility] to evaluate injury, but patient states due to ongoing severity of the pain, he is planning on going to a local ER for further evaluation of the pain. Advised appointment with Dr. Morgan for follow up to discuss shoes. Transferred to office who assisted patient in scheduling with appointment 03/13/24. [facility] 01-26-2024 Miscellaneous Notes Patient calling in to office. Verified by name and . Patient states that he has ongoing, chronic issues with right foot pain, for which he has seen Dr. Morgan in the past. States that he recently found out from his insurance company that they would allow for him to receive a pair of orthotic boots. He states that he checked with another flight surveyor that he saw recently for casting for inserts, but states he only prescribes shoes for diabetic patients. Patient states that about one week ago, he stubbed his right big toe on the concrete and has been having severe pain since the incident. Admits to swelling in right foot and ankle. States initially he had redness and warmth noted, but those have resolved. He also admits to protruding blood vessels around the injury initially, but has resolved. Encouraged [facility] to evaluate injury, but patient states due to ongoing severity of the pain, he is planning on going to a local ER for further evaluation of the pain. Advised appointment with Dr. Morgan for follow up to discuss shoes. Transferred to office who assisted patient in scheduling with appointment 03/13/24. documented in this encounter [facility] 01-25-2024 Telephone encounter Note Prescription refilled. Karli Acevedo PA-C January 25, 2024 3:06 PM [facility] 01-25-2024 Miscellaneous Notes Prescription refilled. Karli Acevedo PA-C January 25, 2024 3:06 PM Patient calling back to check status on the refills. Please advise documented in this encounter [facility] 01-25-2024 Telephone encounter Note Patient calling back to check status on the refills. Please advise [facility] 01-16-2024 Telephone encounter Note Reason for call: Patient calling with foot/ankle injury. States he had previous surgery in his rt foot and 2 days ago he rolled his ankle. States he felt a pop when this happened. Now patients foot is swollen with severe throbbing pain. Patient is unable to bear weight on his foot and states he has not been able to sleep for the last 2 nights due to the pain. Patient also states his veins in that foot are very pronounced. Outcome: Patient advised to go to nearest ED now. Patient states he does not want to go to his local ED and requesting to speak with his orthopedic surgeon. Conferenced to Dr. Rosenthal's answering service for further assistance. Reason for Disposition Can't stand (bear weight) or walk Protocols used: Ankle and Foot [id number] [facility] 01-16-2024 Miscellaneous Notes Reason for call: Patient calling with foot/ankle injury. States he had previous surgery in his rt foot and 2 days ago he rolled his ankle. States he felt a pop when this happened. Now patients foot is swollen with severe throbbing pain. Patient is unable to bear weight on his foot and states he has not been able to sleep for the last 2 nights due to the pain. Patient also states his veins in that foot are very pronounced. Outcome: Patient advised to go to nearest ED now. Patient states he does not want to go to his local ED and requesting to speak with his orthopedic surgeon. Conferenced to Dr. Rosenthal's answering service for further assistance. Reason for Disposition Can't stand (bear weight) or walk Protocols used: Ankle and Foot [id number] documented in this encounter [facility] 01-13-2024 Telephone encounter Note The following approved medication requests have been transmitted electronically. Requested Prescriptions Signed Prescriptions Disp Refills methocarbamol (ROBAXIN) 750 mg tablet 90 tablet 0 Sig: take 1 tablet by mouth three times a day Authorizing Provider: CHESTELISA MA PA-C [facility] 01-13-2024 Miscellaneous Notes The following approved medication requests have been transmitted electronically. Requested Prescriptions Signed Prescriptions Disp Refills methocarbamol (ROBAXIN) 750 mg tablet 90 tablet 0 Sig: take 1 tablet by mouth three times a day Authorizing Provider: ELISA IZQUIERDO PA-C documented in this encounter [facility] 01-11-2024 Telephone encounter Note Patient came in today (01/11/2024) and had new cast placed and appointment with Karli Acevedo PA-C. [facility] 01-11-2024 Miscellaneous Notes Patient came in today (01/11/2024) and had new cast placed and appointment with Karli Acevedo PA-C. José is calling Rik Rosenthal MD today with concern regarding slipping and falling yesterday. Patient landed in some dog feces and it got in his cast. Patient removed cast and is coming in to day at 12 to get recasted. Patient was wondering if Dr. Rosenthal wanted to take a look at his wrist. Please advise. Patient has been identified by name and birthdate. Duration of symptoms: N/A Person calling: self Call patient at: at home [phone] (home) [phone] (cell) Was an appointment scheduled: No Closing statement: Results or non-symptom based questions: Thank you for calling [facility], your call will be returned within the next business day. Ciera Chu documented in this encounter [facility] 01-11-2024 Note HNO ID: [id number] Author: ZHOU ASTORGA OCCA Service: ? Author Type: Local Company Truck Driver Type: Progress Notes Filed: 01/11/2024 13:56 Note Text: PT ASSESSMENT - CASTING ROOM José presents for Application of cast. Patient removed previous cast after a fall. Applied short arm thumb spica cast, IP free: to Left arm. Patient has been instructed in Care of cast. MATEUS Lawrence [facility] 01-11-2024 History of Present illness Narrative PT ASSESSMENT - CASTING ROOM José presents for Application of cast. Patient removed previous cast after a fall. Applied short arm thumb spica cast, IP free: to Left arm. Patient has been instructed in Care of cast. MATEUS Lawrence documented in this encounter [facility] 01-11-2024 Note HNO ID: [id number] Author: KARLI ACEVEDO PA-C Service: ? Author Type: Physician Automotive Sales Specialist Type: Progress Notes Filed: 01/23/2024 19:34 Note Text: January 11, 2024 OPERATIVE REPORT: PROCEDURE: Left thumb CMC arthroplasty with Roni trapezoid ectomy DATE: 12/13/2023 SURGICAL PATHOLOGY: FINAL DIAGNOSIS A. Left hand, trapezoid bone, excision: - Degenerative joint disease. He is 4 weeks out. Patient fell yesterday and got dog feces in his cast. Patient removed this on his own with a small oscillating saw prior to contacting the office. Pain is continuing to improve, he tried to limit use of the hand but states he is likely using it more than he should. PHYSICAL EXAM: On exam of the left hand incisions are healing nicely without signs of infection. He can perform gentle active flexion extension at thumb IP. There is smooth and pain-free circumduction of the left thumb. Sensation is intact to light touch in the median, radial, ulnar and superficial radial nerve distributions, subjectively slightly decreased in the superficial radial nerve distribution. AIN, PIN and ulnar motor is intact. He can make a full fist. Radial pulse 2+. Today's x-rays demonstrate maintained suspension of thumb metacarpal, no acute fractures or dislocations. PLAN: Reassured that even though he removed the cast on his own, on x-ray everything appears stable at this point. Discussed that sensation will improve over the thumb with time. Reviewed again that he should not be using the left hand for any lifting pushing or pulling and should remain nonweightbearing. Will send a refill for Kimball to his pharmacy, and discussed that we we will continue to taper this and it should be used as needed spacing out as long as possible. Dr. Rosenthal also came and reinforced postoperative course and restrictions with the patient. Follow-up as scheduled with Dr. Rosenthal in 3 weeks Karli Acevedo PA-C [facility] 01-11-2024 History of Present illness Narrative January 11, 2024 OPERATIVE REPORT: PROCEDURE: Left thumb CMC arthroplasty with Roni trapezoid ectomy DATE: 12/13/2023 SURGICAL PATHOLOGY: FINAL DIAGNOSIS A. Left hand, trapezoid bone, excision: - Degenerative joint disease. He is 4 weeks out. Patient fell yesterday and got dog feces in his cast. Patient removed this on his own with a small oscillating saw prior to contacting the office. Pain is continuing to improve, he tried to limit use of the hand but states he is likely using it more than he should. PHYSICAL EXAM: On exam of the left hand incisions are healing nicely without signs of infection. He can perform gentle active flexion extension at thumb IP. There is smooth and pain-free circumduction of the left thumb. Sensation is intact to light touch in the median, radial, ulnar and superficial radial nerve distributions, subjectively slightly decreased in the superficial radial nerve distribution. AIN, PIN and ulnar motor is intact. He can make a full fist. Radial pulse 2+. Today's x-rays demonstrate maintained suspension of thumb metacarpal, no acute fractures or dislocations. PLAN: Reassured that even though he removed the cast on his own, on x-ray everything appears stable at this point. Discussed that sensation will improve over the thumb with time. Reviewed again that he should not be using the left hand for any lifting pushing or pulling and should remain nonweightbearing. Will send a refill for Kimball to his pharmacy, and discussed that we we will continue to taper this and it should be used as needed spacing out as long as possible. Dr. Rosenthal also came and reinforced postoperative course and restrictions with the patient. Follow-up as scheduled with Dr. Rosenthal in 3 weeks Karli Acevedo PA-C documented in this encounter [facility] 01-11-2024 History of Present illness Narrative Radiology Service Progress Note PATIENT NAME: José Rojas DATE OF SERVICE: January 11, 2024 TIME: 12:43 PM PATIENT IDENTITY VERIFICATION COMPLETED USING TWO (2) IDENTIFIERS: Name and Date of confirmed by patient verbally. FALL SCREENING: Has the patient had 2 falls in the last year or 1 fall with injury or currently using an Ambulatory Assistive Device (Walker, Cane, Wheelchair, Crutches, etc.)? No PATIENT GENDER DATA: Male PATIENT RELEVANT IMPLANT DATA REVIEWED: Not Applicable PATIENT PRESENTS WITH AN IMPLANTABLE OR ATTACHED VIDEO TAPE DUPLICATOR: No RADIOLOGY DEPARTMENT: General X-ray: Exam(s) Completed: Upper Extremity X-Ray(s): Fingers/Thumb, left PERIPHERAL IV DATA: Not applicable SIGNED BY: RT Marzena(Parminder) January 11, 2024 12:43 PM documented in this encounter [facility] 01-11-2024 Note HNO ID: [id number] Author: VALERY DUENAS RT(Parminder) Service: Radiology Author Type: Technologist Type: Progress Notes Filed: 01/11/2024 12:45 Note Text: Radiology Service Progress Note PATIENT NAME: José Rojas DATE OF SERVICE: January 11, 2024 TIME: 12:43 PM PATIENT IDENTITY VERIFICATION COMPLETED USING TWO (2) IDENTIFIERS: Name and Date of confirmed by patient verbally. FALL SCREENING: Has the patient had 2 falls in the last year or 1 fall with injury or currently using an Ambulatory Assistive Device (Walker, Cane, Wheelchair, Crutches, etc.)? No PATIENT GENDER DATA: Male PATIENT RELEVANT IMPLANT DATA REVIEWED: Not Applicable PATIENT PRESENTS WITH AN IMPLANTABLE OR ATTACHED VIDEO TAPE DUPLICATOR: No RADIOLOGY DEPARTMENT: General X-ray: Exam(s) Completed: Upper Extremity X-Ray(s): Fingers/Thumb, left PERIPHERAL IV DATA: Not applicable SIGNED BY: Kaia Barr RT RT Fabián(R) January 11, 2024 12:43 PM [facility] 01-11-2024 Telephone encounter Note José is calling Rik Rosenthal MD today with concern regarding slipping and falling yesterday. Patient landed in some dog feces and it got in his cast. Patient removed cast and is coming in to day at 12 to get recasted. Patient was wondering if Dr. Rosenthal wanted to take a look at his wrist. Please advise. Patient has been identified by name and birthdate. Duration of symptoms: N/A Person calling: self Call patient at: at home [phone] (home) [phone] (cell) Was an appointment scheduled: No Closing statement: Results or non-symptom based questions: Thank you for calling [facility], your call will be returned within the next business day. Ciera Chu [facility] 12-28-2023 Note HNO ID: [id number] Author: ZHOU ASTORGA OCCA Service: ? Author Type: Local Company Truck Driver Type: Progress Notes Filed: 12/28/2023 15:30 Note Text: PT ASSESSMENT - CASTING ROOM José presents for Application of cast. Applied short arm thumb spica cast, IP free: to Left arm. Patient has been instructed in Care of cast. MATEUS Lawrence [facility] 12-28-2023 History of Present illness Narrative PT ASSESSMENT - CASTING ROOM José presents for Application of cast. Applied short arm thumb spica cast, IP free: to Left arm. Patient has been instructed in Care of cast. MATEUS Lawrence documented in this encounter [facility] 12-28-2023 Note HNO ID: [id number] Author: ANNETTA MCCANN MD Service: ? Author Type: Physician Type: Progress Notes Filed: 12/28/2023 14:30 Note Text: Had surgical intervention done on 12/13/2023 of his left hand for primary arthrosis of first MCP joint. Will get R hand surgery done on 06/29/2024. -Pt has a follow up with Orthopedic hand specialist today. -Went to [facility] ER about one week ago for falls he suffered. Pt says he had workup done the ER. Pt says he will be making an appointment with his Neurologist. Believes he has CTE. Pt played football but has also had traumatic brain injuries as an adult per pt discussion. -Needs refill of Robaxin. -Vitals are stable. -Voices no other complaints. Vital signs reviewed and are stable GENERAL APPEARANCE: Alert, cooperative, pleasant, in no acute distress, no conversational dyspnea HEENT: Extraocular movements are intact. no pallor, no icterus NECK: No cervical lymphadenopathy or tenderness appreciated HEART: regular rate and rhythm, without murmur LUNGS: clear to auscultation, without rales or wheeze, good air exchange ADBOMEN:soft, nondistended, nontender, no hepatosplenomegaly or masses, BS are present, no rebound or guarding appreciated NEURO: No focal deficits PSYCH: no suicide thoughts (M18.0) Primary arthrosis of first carpometacarpal joints, bilateral (primary encounter diagnosis) -Had surgery of left hand as documented above and has follow up with Ortho today. -R hand surgery is scheduled for 06/2024. [facility] 12-28-2023 History of Present illness Narrative Had surgical intervention done on 12/13/2023 of his left hand for primary arthrosis of first MCP joint. Will get R hand surgery done on 06/29/2024. -Pt has a follow up with Orthopedic hand specialist today. -Went to [facility] ER about one week ago for falls he suffered. Pt says he had workup done the ER. Pt says he will be making an appointment with his Neurologist. Believes he has CTE. Pt played football but has also had traumatic brain injuries as an adult per pt discussion. -Needs refill of Robaxin. -Vitals are stable. -Voices no other complaints. Vital signs reviewed and are stable GENERAL APPEARANCE: Alert, cooperative, pleasant, in no acute distress, no conversational dyspnea HEENT: Extraocular movements are intact. no pallor, no icterus NECK: No cervical lymphadenopathy or tenderness appreciated HEART: regular rate and rhythm, without murmur LUNGS: clear to auscultation, without rales or wheeze, good air exchange ADBOMEN:soft, nondistended, nontender, no hepatosplenomegaly or masses, BS are present, no rebound or guarding appreciated NEURO: No focal deficits PSYCH: no suicide thoughts (M18.0) Primary arthrosis of first carpometacarpal joints, bilateral (primary encounter diagnosis) -Had surgery of left hand as documented above and has follow up with Ortho today. -R hand surgery is scheduled for 06/2024. documented in this encounter [facility] 12-28-2023 Note HNO ID: [id number] Author: RIK ROSENTHAL MD Service: ? Author Type: Physician Type: Progress Notes Filed: 12/29/2023 13:05 Note Text: OPERATIVE REPORT: PROCEDURE: Left thumb CMC arthroplasty with Roni trapezoid ectomy DATE: 12/13/2023 SURGICAL PATHOLOGY: FINAL DIAGNOSIS A. Left hand, trapezoid bone, excision: - Degenerative joint disease. 2 weeks out. He is feeling good. No issues. PHYSICAL EXAM: All incisions are healing nicely with no signs of infection. Sensation intact in the median, radial, ulnar, superficial radial distribution. EPL and FPL intact. Smooth and painless circumduction of the CMC. Able make a full fist. Left thumb status post left thumb CMC arthroplasty and Roni trapezoid ectomy with expected postoperative results. PLAN: Refilled Percocet, thumb spica cast with the IP joint free, follow-up in 1 month for cast removal and initiation of removable brace and motion exercises with occupational therapy. [facility] 12-28-2023 History of Present illness Narrative OPERATIVE REPORT: PROCEDURE: Left thumb CMC arthroplasty with Roni trapezoid ectomy DATE: 12/13/2023 SURGICAL PATHOLOGY: FINAL DIAGNOSIS A. Left hand, trapezoid bone, excision: - Degenerative joint disease. 2 weeks out. He is feeling good. No issues. PHYSICAL EXAM: All incisions are healing nicely with no signs of infection. Sensation intact in the median, radial, ulnar, superficial radial distribution. EPL and FPL intact. Smooth and painless circumduction of the CMC. Able make a full fist. Left thumb status post left thumb CMC arthroplasty and Roni trapezoid ectomy with expected postoperative results. PLAN: Refilled Percocet, thumb spica cast with the IP joint free, follow-up in 1 month for cast removal and initiation of removable brace and motion exercises with occupational therapy. documented in this encounter [facility] 12-28-2023 History of Present illness Narrative Radiology Service Progress Note PATIENT NAME: José Rojas DATE OF SERVICE: December 28, 2023 TIME: 2:41 PM PATIENT IDENTITY VERIFICATION COMPLETED USING TWO (2) IDENTIFIERS: Name and Date of confirmed by patient verbally. FALL SCREENING: Has the patient had 2 falls in the last year or 1 fall with injury or currently using an Ambulatory Assistive Device (Walker, Cane, Wheelchair, Crutches, etc.)? No PATIENT GENDER DATA: Male PATIENT RELEVANT IMPLANT DATA REVIEWED: Not Applicable PATIENT PRESENTS WITH AN IMPLANTABLE OR ATTACHED VIDEO TAPE DUPLICATOR: No RADIOLOGY DEPARTMENT: General X-ray: Exam(s) Completed: Upper Extremity X-Ray(s): Fingers/Thumb, left PERIPHERAL IV DATA: Not applicable SIGNED BY: SONIDO PLASENCIA (RT) AND RT Xenia(R) December 28, 2023 2:41 PM documented in this encounter [facility] 12-28-2023 Note HNO ID: [id number] Author: ROSALIA LEWIS RT(R) Service: Radiology Author Type: Technologist Type: Progress Notes Filed: 12/28/2023 14:42 Note Text: Radiology Service Progress Note PATIENT NAME: José Rojas DATE OF SERVICE: December 28, 2023 TIME: 2:41 PM PATIENT IDENTITY VERIFICATION COMPLETED USING TWO (2) IDENTIFIERS: Name and Date of confirmed by patient verbally. FALL SCREENING: Has the patient had 2 falls in the last year or 1 fall with injury or currently using an Ambulatory Assistive Device (Walker, Cane, Wheelchair, Crutches, etc.)? No PATIENT GENDER DATA: Male PATIENT RELEVANT IMPLANT DATA REVIEWED: Not Applicable PATIENT PRESENTS WITH AN IMPLANTABLE OR ATTACHED VIDEO TAPE DUPLICATOR: No RADIOLOGY DEPARTMENT: General X-ray: Exam(s) Completed: Upper Extremity X-Ray(s): Fingers/Thumb, left PERIPHERAL IV DATA: Not applicable SIGNED BY: SONIDO PLASENCIA (RT) AND RT Xenia(R) December 28, 2023 2:41 PM [facility] 12-26-2023 Telephone encounter Note The following approved medication requests have been transmitted electronically. Requested Prescriptions Signed Prescriptions Disp Refills losartan (COZAAR) 50 mg tablet 90 tablet 3 Sig: take 1 tablet by mouth every day Authorizing Provider: ELISA IZQUIERDO metoprolol succinate ER (TOPROL XL) 50 mg 24 hr tablet 90 tablet 3 Sig: take 1 tablet by mouth at bedtime Authorizing Provider: ELISA IZQUIERDO PA-C [facility] 12-26-2023 Miscellaneous Notes The following approved medication requests have been transmitted electronically. Requested Prescriptions Signed Prescriptions Disp Refills losartan (COZAAR) 50 mg tablet 90 tablet 3 Sig: take 1 tablet by mouth every day Authorizing Provider: ELISA IZQUIERDO metoprolol succinate ER (TOPROL XL) 50 mg 24 hr tablet 90 tablet 3 Sig: take 1 tablet by mouth at bedtime Authorizing Provider: ELISA IZQUIERDO PA-C Requesting refills as follows: Requested Prescriptions Pending Prescriptions Disp Refills losartan (COZAAR) 50 mg tablet [Pharmacy Med Name: losartan 50 mg tablet] 90 tablet 3 Sig: take 1 tablet by mouth every day metoprolol succinate ER (TOPROL XL) 50 mg 24 hr tablet [Pharmacy Med Name: metoprolol succinate ER 50 mg tablet,extended release 24 hr] 90 tablet 3 Sig: take 1 tablet by mouth at bedtime Last visit 09/19/2023 Next scheduled 12/28/2023 documented in this encounter [facility] 12-26-2023 Telephone encounter Note Requesting refills as follows: Requested Prescriptions Pending Prescriptions Disp Refills losartan (COZAAR) 50 mg tablet [Pharmacy Med Name: losartan 50 mg tablet] 90 tablet 3 Sig: take 1 tablet by mouth every day metoprolol succinate ER (TOPROL XL) 50 mg 24 hr tablet [Pharmacy Med Name: metoprolol succinate ER 50 mg tablet,extended release 24 hr] 90 tablet 3 Sig: take 1 tablet by mouth at bedtime Last visit 09/19/2023 Next scheduled 12/28/2023 [facility] 12-26-2023 Telephone encounter Note OV scheduled with Dr. Mccann on 12/28/2023 [facility] 12-26-2023 Miscellaneous Notes OV scheduled with Dr. Mccann on 12/28/2023 Lvm Sent mc Spoke with patient He stated that he is interested in seeing any available provider Please see if he can be placed on Tuesday schedule. Please call. Dr. Robertson is out of the office today. I don't recommend that he increase his percocet. If he is having more pain after a fall, then he should be evaluated. If nothing available on tomorrow's schedule, then recommend Urgent Care. José is calling Rosa Robertson MD today stating that he has been prescribed percocet by Dr. Rosenthal for his carpal tunnel and yesterday he had a pretty bad fall and was seen at [facility]. He is now having back pain and is asking if he can increase dose of percocet. Please advise. Patient has been identified by name and birthdate. Duration of symptoms: N/A Person calling: self Call patient at: on cell [phone] (home) [phone] (cell) Was an appointment scheduled: No Closing statement: Symptom Call: Thank you for calling [facility], your call is very important. A nurse will call in approximately 2-4 hours during business hours. If this is an emergency, please contact 911. Jamee Levy documented in this encounter [facility] 12-24-2023 Telephone encounter Note Lvm Sent [facility] 12-23-2023 Telephone encounter Note Spoke with patient He stated that he is interested in seeing any available provider Please see if he can be placed on Tuesday schedule. [facility] 12-23-2023 Telephone encounter Note Please call. Dr. Robertson is out of the office today. I don't recommend that he increase his percocet. If he is having more pain after a fall, then he should be evaluated. If nothing available on tomorrow's schedule, then recommend Urgent Care. [facility] 12-23-2023 Telephone encounter Note José is calling Rosa Robertson MD today stating that he has been prescribed percocet by Dr. Rosenthal for his carpal tunnel and yesterday he had a pretty bad fall and was seen at [facility]. He is now having back pain and is asking if he can increase dose of percocet. Please advise. Patient has been identified by name and birthdate. Duration of symptoms: N/A Person calling: self Call patient at: on cell [phone] (home) [phone] (cell) Was an appointment scheduled: No Closing statement: Symptom Call: Thank you for calling [facility], your call is very important. A nurse will call in approximately 2-4 hours during business hours. If this is an emergency, please contact 911. Jamee Levy [facility] 12-20-2023 Telephone encounter Note Called patient to discuss that he should continue to space out the medication as much as possible continue with adjunctive measures that we discussed last Tuesday. He expressed understanding. I did send a refill to pharmacy not to be filled before . Karli Acevedo PA-C December 20, 2023 2:35 PM [facility] 12-20-2023 Miscellaneous Notes Called patient to discuss that he should continue to space out the medication as much as possible continue with adjunctive measures that we discussed last Tuesday. He expressed understanding. I did send a refill to pharmacy not to be filled before . Karli Acevedo PA-C December 20, 2023 2:35 PM Patient states he does not need refill at this time but is making his medication last by taking less. Patient asking when the next time he can refill if needed? Prescription Refill Information The patient has been identified by name and date of : Yes Caregiver verified no other encounters exist for this prescription request: Yes Caregiver confirmed with patient/requestor that no other refills are due, in the near future, with this provider at this time: Yes The last office visit in the department: Surgery 12/13/23 Does the patient have a future office visit with this provider/department: Yes Requested Prescriptions Pending Prescriptions Disp Refills oxyCODONE-acetaminophen (PERCOCET) 5-325 mg tablet 30 tablet 0 Sig: Take 1 tablet by mouth every 4 hours as needed for pain for up to 5 days. Ivette Levy December 19, 2023 4:35 PM documented in this encounter [facility] 12-19-2023 Telephone encounter Note Patient states he does not need refill at this time but is making his medication last by taking less. Patient asking when the next time he can refill if needed? Prescription Refill Information The patient has been identified by name and date of : Yes Caregiver verified no other encounters exist for this prescription request: Yes Caregiver confirmed with patient/requestor that no other refills are due, in the near future, with this provider at this time: Yes The last office visit in the department: Surgery 12/13/23 Does the patient have a future office visit with this provider/department: Yes Requested Prescriptions Pending Prescriptions Disp Refills oxyCODONE-acetaminophen (PERCOCET) 5-325 mg tablet 30 tablet 0 Sig: Take 1 tablet by mouth every 4 hours as needed for pain for up to 5 days. Ivette Colvin [facility] December 19, 2023 4:35 PM [facility] 12-16-2023 Note Addended by: KARLI ACEVEDO on: 12/16/2023 02:59 PM Modules accepted: Orders [facility] 12-16-2023 Miscellaneous Notes Addended by: KARLI ACEVEDO on: 12/16/2023 02:59 PM Modules accepted: Orders Called patient to discuss current pain. He states pain is maybe somewhat improving but is still pretty significant. He only has about 6 tablets left after discussing with Dr. Rosenthal he was taking 1 to 2 tablets every 4 hours. Will send a refill for Percocet to his pharmacy with the instructions to take 1 every 4 hours, encouraged to space this out to every 6 hours as he gets further out from surgery. Also stated that he can supplement with naproxen or other NSAIDs while using Percocet. He has good capillary refill and no numbness or tingling, offered to arrange an appointment for a splint change in case this is too tight and contributing to his symptoms. Patient lines at this time, he will reach out to the office if he changes his mind. Discussed red flag symptoms to present to the ED if anything changes. Karli Acevedo PA-C December 16, 2023 2:59 PM Patient requesting Medication Refill for Pain. 5 mg unable to give name of desired medication refill to me. (See previous encounter date 12/13/23) Patient requesting to speak with Nurse nonprofit financial controller about Condition of his fingers. Transferred to [id number], Ortho Nurse Triage Line for further assistance. documented in this encounter [facility] 12-16-2023 Telephone encounter Note Called patient to discuss current pain. He states pain is maybe somewhat improving but is still pretty significant. He only has about 6 tablets left after discussing with Dr. Rosenthal he was taking 1 to 2 tablets every 4 hours. Will send a refill for Percocet to his pharmacy with the instructions to take 1 every 4 hours, encouraged to space this out to every 6 hours as he gets further out from surgery. Also stated that he can supplement with naproxen or other NSAIDs while using Percocet. He has good capillary refill and no numbness or tingling, offered to arrange an appointment for a splint change in case this is too tight and contributing to his symptoms. Patient lines at this time, he will reach out to the office if he changes his mind. Discussed red flag symptoms to present to the ED if anything changes. Karli Acevedo PA-C December 16, 2023 2:59 PM [facility] 12-16-2023 Telephone encounter Note Patient requesting Medication Refill for Pain. 5 mg unable to give name of desired medication refill to me. (See previous encounter date 12/13/23) Patient requesting to speak with Nurse nonprofit financial controller about Condition of his fingers. Transferred to EXT [id number], Ortho Nurse Triage Line for further assistance. [facility] 12-13-2023 Telephone encounter Note Patient calling with questions regarding pain medication post-operatively. Conferenced to [facility] [employer] jet operator, Engana Pty, to speak with provider certification technician for Dr. Rik Rosenthal (Orthopedics). GO TO THE EMERGENCY ROOM OR CALL 911 IF: * You develop any new symptoms * Your condition worsens * You are concerned or anxious about your condition for any other reason. [facility] 12-13-2023 Miscellaneous Notes Patient calling with questions regarding pain medication post-operatively. Conferenced to [facility] jet operator, Engana Pty, to speak with provider certification technician for Dr. Rik Rosenthal (Orthopedics). GO TO THE EMERGENCY ROOM OR CALL 911 IF: * You develop any new symptoms * Your condition worsens * You are concerned or anxious about your condition for any other reason. documented in this encounter [facility] 12-13-2023 Telephone encounter Note BMP results 12-12-23 in [facility]. Karey John RN PACC December 13, 2023 3:54 PM [facility] 12-13-2023 Miscellaneous Notes BMP results 12-12-23 in [facility]. Karey John RN PACC December 13, 2023 3:54 PM Reminder call to patient to have blood work completed for upcoming procedure on 12-12. Order in [facility] and patient states going to [facility] laboratory today at 4 pm to have completed. Karey John RN PAC December 08, 2023 11:53 AM documented in this encounter [facility] 12-13-2023 Note HNO ID: [id number] Author: CAYETANO DRAKE II, DO Service: Anesthesiology Author Type: Anesthesiologist Type: Anesthesia Procedure Notes Filed: 12/13/2023 09:54 Note Text: ANESTHESIOLOGY PROCEDURE NOTE Peripheral Nerve Block General Information Procedure Start Time/Medication Administration: 12/13/2023 7:45 AM Procedure End time: 12/13/2023 7:54 AM Patient location during procedure: OR Timeout Performed Pre-procedure: timeout performed Consent Obtained: Yes Patient identity confirmed: arm band Reason for block: post-op pain management/at surgeon's request Staffing Anesthesiologist: Cayetano Drake II, DO Performed by: anesthesiologist Preparation Sterility Preparation: hand hygiene performed prior to procedure, sterile gloves, drapes, and procedure tray, surgical cap used, mask used, sterile drape used during line insertion, skin prep agent completely dried prior to procedure Sterility Technique Not Completely Performed Due to Extreme Emergency: No Site Prep: Chloraprep Pre-Procedure Neuro Exam Location: LUE Sensory: intact Motor: intact Procedure Details Patient Position: supine Monitoring: NIBP, EKG and Pulse OX Block Type Upper Extremity: axillary Laterality: left Injection Technique: single-shot Ultrasound Guided: Yes Image in Chart: yes Local Infiltration: Yes Needle Needle Type: stimulating Needle Gauge: 22 G Needle Length: 51 mm Needle Localization: ultrasound Assessment Injection assessment: negative aspiration, no paresthesia on injection, incremental injection and local visualized surrounding nerve on ultrasound Paresthesia: none Post-Procedure Neuro Exam Expected Regional Anesthesia: Yes Medications Administered dexamethasone sodium phosphate injection (DECADRON) - peripheral nerve block 4 mg - 12/13/2023 7:45:00 AM ropivacaine (PF) 5 mg/mL (0.5 %) injection (NAROPIN) - peripheral nerve block 40 mL - 12/13/2023 7:45:00 AM SIGNATURE: Cayetano Drake II, DO PATIENT NAME: José Rojas DATE: December 13, 2023 TIME: 9:52 AM CSN: [id number] [facility] 12-13-2023 Note HNO ID: [id number] Author: JORDAN PORRAS AA Service: ? Author Type: Bending Frame Operator Type: Anesthesia Procedure Notes Filed: 12/13/2023 08:11 Note Text: ANESTHESIOLOGY PROCEDURE NOTE Airway General Information Procedure Start Time/Medication Administration: 12/13/2023 7:38 AM Procedure End Time: 12/13/2023 7:38 AM Patient location during procedure: OR Timeout Performed Pre-procedure: timeout performed Consent Obtained: Yes Patient identity confirmed: arm band, care child study team director and patient Staffing Anesthesiologist: Cayetano Darke II, DO CAA: Jordan Porras AA Performed by: SOFI Indications and Patient Condition Indications for airway management: anesthesia Preoxygenated: yes anesthesia circuit Patient position: sniffing Method: asleep Final Airway Details Final airway type: supraglottic airway Number of attempts at approach: 1 Final Supraglottic Airway: i-gel Size 5 Seal Adequate: yes Airway not difficult Comments Atraumatic insertion of LMA. Lips and teeth in preop condition SIGNATURE: TORY Kirby PATIENT NAME: José Rojas DATE: December 13, 2023 TIME: 8:09 AM CSN: [id number] [facility] 12-11-2023 Telephone encounter Note Patient calling regarding hisortho surgery. Conferenced to [employer] [ ] to speak with provider certification technician for Dr. Rik Rosenthal. GO TO THE EMERGENCY ROOM OR CALL 911 IF: * You develop any new symptoms * Your condition worsens * You are concerned or anxious about your condition for any other reason. [facility] 12-11-2023 Miscellaneous Notes Patient calling regarding hisortho surgery. Conferenced to [facility] Answering Service [ ] to speak with provider certification technician for Dr. Rik Rosenthal. GO TO THE EMERGENCY ROOM OR CALL 911 IF: * You develop any new symptoms * Your condition worsens * You are concerned or anxious about your condition for any other reason. documented in this encounter [facility] 12-08-2023 Telephone encounter Note Reminder call to patient to have blood work completed for upcoming procedure on 12-12. Order in [facility] and patient states going to [facility] laboratory today at 4 pm to have completed. Karey John RN [facility] December 08, 2023 11:53 AM [facility] 12-02-2023 Telephone encounter Note Case message sent to reschedule surgery. [facility] 12-02-2023 Miscellaneous Notes Case message sent to reschedule surgery. Patient returned phone call and accepted the new surgery date of 12/13/2023 at [facility] with Dr. Rosenthal. Called patient but phone went to [facility]. Left detailed message offering patient an earlier surgery date on either 12/13/23 or 12/20/23. Provided patient direct number to reach Dr. Rosenthal's office at. documented in this encounter [facility] 12-02-2023 Telephone encounter Note Patient returned phone call and accepted the new surgery date of 12/13/2023 at [facility] with Dr. Rosenthal. [facility] 12-02-2023 Telephone encounter Note Called patient but phone went to [employer]. Left detailed message offering patient an earlier surgery date on either 12/13/23 or 12/20/23. Provided patient direct number to reach Dr. Rosenthal's office at. [facility] 11-29-2023 Instructions Kathy Mckeon APRN.[facility] - 11/29/2023 7:40 AM EDT PATIENT PREOPERATIVE INSTRUCTIONS Karli Acevedo has scheduled you for your procedure at this surgery center: [facility]: [phone] --[id number] [place] [address]. Please enter through the entrance closest to [facility]. Please read below carefully for your personalized instructions. Dietary Restrictions: - No solid food after midnight. - You may have 12 ounces of clear liquids (water, clear juices such as apple juice or gatorade, carbonated beverages, clear tea, black coffee, jello) until 2 hours before scheduled arrival at facility. Medications: Unless instructed differently below, stay on all of your medications until your surgery. If you start any new medications after today's visit, please contact your surgeon. Pre-Surgery Med Instructions Medication Instructions tiZANidine (ZANAFLEX) 4 mg tablet Do not take the day of surgery losartan (COZAAR) 50 mg tablet Do not take the evening before, or the morning of surgery acamprosate DR (CAMPRAL) 333 mg tablet Do not take the day of surgery If you take any medications for erectile dysfunction-Cialis (Tadalafil), Levitra, Staxyn (Vardenafil) Viagra (Sildenenafil please do not take these for 48 hours before surgery. If you start any new medications after today's visit, please contact the surgeon's office. Blood Thinning Medications: - Hold NSAIDS (Ibuprofen, Advil, Aleve, Motrin, Celebrex, Mobic, Naproxen, etc.) 7 days before surgery, as directed by your surgeon. Continue low dose aspirin - cardiac stent (patient informed) - Hold all vitamins, fish oil, herbals and dietary supplements 7 days before surgery. - You may take Tylenol (Acetaminophen) or any of your pain medications that do not contain aspirin or NSAIDS as needed. Important Reminders: - If you use CPAP/BIPAP, bring the machine with you to the surgery center. - If you are prescribed inhalers for breathing, continue using them. - Candy, mints, and tobacco products are NOT permitted the morning of surgery. - Hearing aids, dentures and glasses may be worn the morning of surgery. - NO jewelry, body piercings, makeup, hairpins or contacts are to be worn the day of surgery. If you develop symptoms such as a fever, cold, or flu, or have other changes to your health within TWO DAYS of scheduled surgery or the morning of surgery, please contact the surgery center above. Personal Belongings: -Please have photo ID and insurance cards. -If you do not have a copy of advance directives on file with us, please bring a copy with you on the day of surgery. - Leave ALL valuables and money at home or with family members. For Outpatient Procedures: - YOU MUST HAVE A RESPONSIBLE AEROSPACE STRESS ENGINEER TAKE YOU HOME. A TRUCK CLEANER OR TECHNICAL ASSISTANCE CONSULTANT CANNOT BE MADE A RESPONSIBLE AEROSPACE STRESS ENGINEER. - We recommend that a responsible person stays with you overnight to take care of you. - You cannot stay in a hotel alone after outpatient surgery. You will not be permitted to have your surgery, if you do not have someone to take care of you. Arrival Time for Surgery: - The Surgery Center or hospital where you are having surgery will call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 Alcohol Abuse Covid Immunization Dates Overdue - Covid-19 Vaccine (2022- season) Overdue since 12/31/2022 09/25/2020 Imm Admin: COVID-19 original vaccine, age 12+ yr, monovalent (PFIZER-BIONTECH - PURPLE TOP) 09/03/2020 Imm Admin: COVID-19 original vaccine, age 12+ yr, monovalent (PFIZER-BIONTECH - PURPLE TOP) PAST MEDICAL HISTORY Diagnosis Date Acquired hallux limitus of left foot Acute NM (HCC) 08/2007 angina - bare metal stent x1 - to see Dr Ortiz 08/30 Arthritis of right hip inj helps - needs THR, 06/15/17:insurance did not approve Back pain 10/14/2015 pain management rec CPRP - do not refill percocet - 07/08/17:send to [facility] Chronic pain of toe of left foot Depression zoloft spinning couldn't get going, prozac creating action (act on neighbor) - celexa ETOH abuse Fibromyalgia 05/22/20:saw pain psychologist, used mental control to ignore pains GERD (gastroesophageal reflux disease) aciphex Hematuria 2019 saw urology in [place] Hiatal hernia History of PTCA Dr Germain HTN (hypertension) lisinopril Hyperlipidemia lipitor Insomnia 04/16/2022 lexapro, amitryptilline 50 mg qhs, sleeping well Lung nodule 10/16/2014 6 mm - recheck at 3 yr and 2 yrs NEGATIVE HISTORY OF No pn,tb,ca,dm Spinal stenosis 1995 accident went to PT - neck, mid back, right leg, 10/09, percocet 1/ tid - Dr Brooks (pain management) - tried fentayl, methadone Testicular lump s/p removal, benign - testosterone - Dr Valentine PAST SURGICAL HISTORY Procedure Laterality Date APPENDECTOMY 1983 PAST SURGICAL HISTORY OF 2008 one coronary stent/heart cath with stent PAST SURGICAL HISTORY OF 08/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 PAST SURGICAL HISTORY OF colonoscopy PAST SURGICAL HISTORY OF Left arthroscopy left knee PAST SURGICAL HISTORY OF Right shoulder and bicep PAST SURGICAL HISTORY OF Right hip PAST SURGICAL HISTORY OF Left toe TOTAL HIP REPLACEMENT Right 06/2022 FAMILY HISTORY Problem Relation Age of Onset other (back pain) Father neck spurs Heart Mother 45 [place], arthritis other (back pain) Brother None Sister x2, FM Social History Tobacco Use Smoking status: Every Day Packs/day: 0.50 Years: 35.00 Additional pack years: 0.00 Total pack years: 17.50 Types: Cigarettes Smokeless tobacco: Current Vaping Use Vaping Use: Never used Substance Use Topics Alcohol use: Yes Alcohol/week: 2.0 standard drinks of alcohol Types: 2 Cans of Beer (12oz) per week Comment: patient reports stopped drinking 01/2022 was drinking 375 mL bourbon a day Drug use: No Prior to Admission medications as of 11/29/23 0744 Medication Sig Last Dose Taking traMADol (ULTRAM) 50 mg tablet Yes rosuvastatin (CRESTOR) 5 mg tablet take 1 tablet by mouth at bedtime Taking Yes naproxen (NAPROSYN) 500 mg tablet TAKE 1 TABLET BY MOUTH TWICE DAILY NEEDED FOR PAIN (TAKE WITH FOOD) Taking Yes pantoprazole DR (PROTONIX) 40 mg tablet take 1 tablet by mouth daily Taking Yes escitalopram oxalate (LEXAPRO) 20 mg tablet TAKE 1 and ONE-HALF TABLETS BY MOUTH DAILY Taking Yes LORazepam (ATIVAN) 0.5 mg Take 1 tablet by mouth daily at bedtime for 180 days. Taking Yes tiZANidine (ZANAFLEX) 4 mg tablet TAKE 1 TABLET BY MOUTH TWICE DAILY NEEDED for headache Taking Yes omega 0-euo-cvy-fish oil 300 mg (120 mg- 180mg)-1,000 mg cap take 2 capsules by mouth at bedtime Taking Yes VITAMIN D 25 mcg (1,000 unit) tab tablet take 1 tablet by mouth daily Taking Yes pramipexole (MIRAPEX) 0.125 mg tablet Take 1 tablet by mouth daily at bedtime. Taking Yes metoprolol succinate ER (TOPROL XL) 50 mg 24 hr tablet TAKE 1 TABLET BY MOUTH DAILY AT BEDTIME Taking Yes losartan (COZAAR) 50 mg tablet TAKE 1 TABLET BY MOUTH DAILY Taking Yes acamprosate DR (CAMPRAL) 333 mg tablet Take 2 tablets by mouth three times daily. Taking Yes fluticasone (FLONASE) 50 mcg/actuation nasal spray use 2 (TWO) sprays IN EACH NOSTRIL DAILY AT BEDTIME Taking Yes testosterone cypionate (DEPO-TESTOSTERONE) 200 mg/mL injection INJECT 0.5 ml INTRAMUSCULARLY EVERY TEN days. Taking Yes semaglutide (OZEMPIC) 0.25 mg or 0.5 mg(2 mg/1.5 mL) pen Inject 0.25 mg subcutaneously one time a week. Patient not taking: Reported on 11/29/2023 Not Taking VITAMIN B-2 100 mg tab Take 4 tablets by mouth once daily. Patient not taking: Reported on 11/29/2023 Not Taking verapamil SR (CALAN SR, ISOPTIN SR) 180 mg CR tablet Take 1 tablet by mouth daily at bedtime. galcanezumab-gnlm (EMGALITY PEN) 120 mg/mL pen Inject 1 mL subcutaneously once every month. Do not shake. Start after completing 240mg loading dose. Patient not taking: Reported on 11/29/2023 Not Taking Ascorbic Acid 1,000 mg tablet TAKE 1 TABLET BY MOUTH DAILY Patient not taking: Reported on 11/29/2023 Not Taking aspirin, enteric coated (ECOTRIN LOW STRENGTH) 81 mg EC tablet Take 1 tablet by mouth once daily. Patient not taking: Reported on 11/29/2023 Not Taking CPAP New set up: AutoCPAP 5-15 cm H2O, mask (pt pref), filters, heated humidity & tubing. Lifetime supplies. SUSANNAH G47.33. Patient not taking: Reported on 11/29/2023 Not Taking Medication Comments documented by Shelby Camargo RN on 06/19/2023 at 0003. 11/16/22 No medication changes with the past 30 days. Mary Leyva RN 06/19/2023 Patient states that he is only taking amitriptyline, metoprolol and tizanidine. Shelby Camargo RN ALLERGIES No Known Allergies Objective PHYSICAL EXAM: VITALS: BP 152/78 Pulse 60 Temp (Src) 97 (Temporal) Resp 16 Ht 5' 11 (1.80m) Wt 188 lb 7.9 oz (85.5kg) SpO2 99% BMI 26.30 kg/(m^2). General: Alert and oriented, No acute distress Skin: Normal color, no rash, no lesions. HEENT: EOM, pupils equal, round and reactive. Cardiovascular: Normal S1 & S2, no rubs, murmurs or gallops. No JVD. Pulse regular. Lungs: Normal breath sounds, no wheezes or crackles. Abdomen: Soft, non-tender, no rigidity. Extremities: No deformity, no edema or tenderness, no joint swelling or clubbing. Neurological: Normal cognition and motor skills. Pulses: Carotid and radial pulses normal +2. Diagnostic tests reviewed for today's visit: Lab Value Units Date High Low HB No results within date range. HCT No results within date range. WBC No results within date range. PLT No results within date range. NA No results within date range. K No results within date range. GLUC No results within date range. BUN No results within date range. CREAT No results within date range. PTSEC No results within date range. INR No results within date range. APTT No results within date range. ALT No results within date range. AST No results within date range. TBILI No results within date range. TSH No results within date range. Hemoglobin A1C (%) Date Value 06/14/2022 5.4 09/07/2021 5.4 01/13/2018 5.2 05/24/2017 5.4 11/26/2014 5.2 Most recent EKG 11/19/[address] abnormality Abnormal ECG When compared with ECG of 19-NOV-2022 00:31, (unconfirmed) No significant change was found STRESS EXERCISE 08/04/20 CONCLUSIONS: - Exam indication: Dyspnea on exertion - The exercise stress echo was negative for ischemia at 100 % of MPHR (8.3 METS). Average functional capacity for age and gender. - The left ventricle is normal in size. Left ventricular systolic function is normal. EF = 59 5% (2D biplane) - The right ventricle is normal in size. Right ventricular systolic function is normal. - Exam was compared with the prior echocardiographic exam performed on 08/11/16. US CAROTIDS 08/24/21 IMPRESSION: No significant plaque formation or critical stenosis on either side. No significant waveform or velocity alteration HOLTER 06/15/16 Brief Interpretation ; Sinus rhythm ; Sinus tachycardia ; Ventricular ectopy ; Supraventricular ectopy ; Instructions Given to Patient: Instructions located in the after visit summary. Patient given verbal and written preop instructions and voices comprehension and compliance. SIGNATURE: Kathy Mckeon APRN.CNP PATIENT NAME: José Rojas DATE: 11/29/2023 TIME: 8:02 AM documented in this encounter [facility] 11-10-2023 Telephone encounter Note Reason for call: Patient calling with multiple concerns. States that he has felt near syncopal for the past month and has not yet been evaluated. Patient also states that he experienced episodes of chest pain and SOB Tuesday through Tuesday of this week. Outcome: Recommendation to go to the ED now for evaluation. Patient verbalized understanding but declines. Patient disconnected call after refusing disposition. Spoke with CONCHITA Tafoya in Dr. Rosa Robertson's office (PCP) and handoff provided. Reason for Disposition Difficulty breathing Protocols used: Dizziness - [id number] [facility] 11-10-2023 Miscellaneous Notes Reason for call: Patient calling with multiple concerns. States that he has felt near syncopal for the past month and has not yet been evaluated. Patient also states that he experienced episodes of chest pain and SOB Tuesday through Tuesday of this week. Outcome: Recommendation to go to the ED now for evaluation. Patient verbalized understanding but declines. Patient disconnected call after refusing disposition. Spoke with CONCHITA Tafoya in Dr. Rosa Robertson's office (PCP) and handoff provided. Reason for Disposition Difficulty breathing Protocols used: Dizziness - [id number] documented in this encounter [facility] 11-09-2023 Telephone encounter Note Patient did not show up for his PACC appointment today at 9:10 am. Called and left a message to call the pre admission testing schedulers at [phone] to get back on the schedule for PACC. [facility] 11-09-2023 Miscellaneous Notes Patient did not show up for his PACC appointment today at 9:10 am. Called and left a message to call the pre admission testing schedulers at [phone] to get back on the schedule for PACC. documented in this encounter [facility] 10-24-2023 Note HNO ID: [id number] Author: ISIS WELLS RT(R) Service: ? Author Type: Technologist Type: Progress Notes Filed: 10/24/2023 14:02 Note Text: Radiology Service Progress Note PATIENT NAME: José Rojas DATE OF SERVICE: October 24, 2023 TIME: 2:01 PM PATIENT IDENTITY VERIFICATION COMPLETED USING TWO (2) IDENTIFIERS: Name and Date of confirmed by patient verbally. FALL SCREENING: Has the patient had 2 falls in the last year or 1 fall with injury or currently using an Ambulatory Assistive Device (Walker, Cane, Wheelchair, Crutches, etc.)? No PATIENT GENDER DATA: Male PATIENT RELEVANT IMPLANT DATA REVIEWED: Not Applicable PATIENT PRESENTS WITH AN IMPLANTABLE OR ATTACHED VIDEO TAPE DUPLICATOR: No RADIOLOGY DEPARTMENT: General X-ray: Exam(s) Completed: Upper Extremity X-Ray(s): Fingers/Thumb, bilateral PERIPHERAL IV DATA: Not applicable SIGNED BY: LATISHA Simon) October 24, 2023 2:01 PM [facility] 10-24-2023 History of Present illness Narrative Radiology Service Progress Note PATIENT NAME: José Rojas DATE OF SERVICE: October 24, 2023 TIME: 2:01 PM PATIENT IDENTITY VERIFICATION COMPLETED USING TWO (2) IDENTIFIERS: Name and Date of confirmed by patient verbally. FALL SCREENING: Has the patient had 2 falls in the last year or 1 fall with injury or currently using an Ambulatory Assistive Device (Walker, Cane, Wheelchair, Crutches, etc.)? No PATIENT GENDER DATA: Male PATIENT RELEVANT IMPLANT DATA REVIEWED: Not Applicable PATIENT PRESENTS WITH AN IMPLANTABLE OR ATTACHED VIDEO TAPE DUPLICATOR: No RADIOLOGY DEPARTMENT: General X-ray: Exam(s) Completed: Upper Extremity X-Ray(s): Fingers/Thumb, bilateral PERIPHERAL IV DATA: Not applicable SIGNED BY: LATISHA Simon) October 24, 2023 2:01 PM documented in this encounter [facility] 10-24-2023 Note HNO ID: [id number] Author: RIK ROSENTHAL MD Service: ? Author Type: Physician Type: Progress Notes Filed: 10/24/2023 16:20 Note Text: The patient is sent for evaluation and an opinion regarding treatment by Facundo Pena, who will receive a copy of this report by mail or through the shared medical record. CHIEF COMPLAINT: José Rojas is a 63 year old male who presents today for new evaluation of bilateral thumbs. 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 He has not had any surgery for this. He did have a left thumb extensor tendon laceration repair at the level of the IP joint and has residual numbness from this. He has had injections over the years by Dr. Pena that helped initially but do not help anymore. At this point he is hopeful for surgery. He does have a heart stent but no diabetes or inflammatory arthritis. Previous treatment or work-up includes: As above. ROS: REVIEW OF SYSTEMS: Constitutional: Fever/chills: No Cardiovascular: Chest Pain: No Respiratory: SOB: No Musculoskeletal: as noted in the HPI Neurologic: as noted in the HPI Endocrine: Diabetes: No Tobacco user? Yes SOCIAL HISTORY: Tobacco Use: .5 packs/day, for 10 years. Types: Cigarettes FAMILY HISTORY: FAMILY HISTORY Problem Relation Age of Onset other (back pain) Father neck spurs Heart Mother 45 [place], arthritis other (back pain) Brother None Sister x2, FM PAST MEDICAL HISTORY Diagnosis Date Acquired hallux limitus of left foot Acute [place] (HCC) 08/2007 angina - bare metal stent x1 - to see Dr Ortiz 08/30 Arthritis of right hip inj helps - needs THR, 06/15/17:insurance did not approve Back pain 10/14/2015 pain management rec CPRP - do not refill percocet - 07/08/17:send to [facility] Chronic pain of toe of left foot Depression zoloft spinning couldn't get going, prozac creating action (act on neighbor) - celexa ETOH abuse Fibromyalgia 05/22/20:saw pain psychologist, used mental control to ignore pains GERD (gastroesophageal reflux disease) aciphex Hematuria 2019 saw urology in [place] Hiatal hernia History of PTCA Dr Germain HTN (hypertension) lisinopril Hyperlipidemia lipitor Insomnia 04/16/2022 lexapro, amitryptilline 50 mg qhs, sleeping well Lung nodule 10/16/2014 6 mm - recheck at 1 yr and 2 yrs NEGATIVE HISTORY OF No pn,tb,ca,dm Spinal stenosis 1995 accident went to PT - neck, mid back, right leg, 10/09, percocet 1/ tid - Dr Brooks (pain management) - tried fentayl, methadone Testicular lump s/p removal, benign - testosterone - Dr Valentine PAST SURGICAL HISTORY Procedure Laterality Date APPENDECTOMY 1983 PAST SURGICAL HISTORY OF 2008 one coronary stent/heart cath with stent PAST SURGICAL HISTORY OF 08/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 PAST SURGICAL HISTORY OF colonoscopy PAST SURGICAL HISTORY OF Left arthroscopy left knee PAST SURGICAL HISTORY OF Right shoulder and bicep PAST SURGICAL HISTORY OF Right hip PAST SURGICAL HISTORY OF Left toe TOTAL HIP REPLACEMENT Right 06/2022 FAMILY HISTORY Problem Relation Age of Onset other (back pain) Father neck spurs Heart Mother 45 [place], arthritis other (back pain) Brother None Sister x2, FM Social History Tobacco Use Smoking status: Every Day Packs/day: 0.50 Years: 10.00 Additional pack years: 0.00 Total pack years: 5.00 Types: Cigarettes Smokeless tobacco: Current Substance Use Topics Alcohol use: Not Currently Alcohol/week: 14.0 standard drinks of alcohol Types: 14 Cans of Beer (12oz) per week Comment: patient reports stopped drinking 01/2022 was drinking 375 mL bourbon a day Drug use: No ALLERGIES No Known Allergies Current Outpatient Medications Medication Sig Dispense Refill traMADol (ULTRAM) 50 mg tablet Take 1 tablet by mouth every 8 hours as needed for pain for up to 7 days. 21 tablet 0 rosuvastatin (CRESTOR) 5 mg tablet take 1 tablet by mouth at bedtime 90 tablet 3 naproxen (NAPROSYN) 500 mg tablet TAKE 1 TABLET BY MOUTH TWICE DAILY NEEDED FOR PAIN (TAKE WITH FOOD) [address] (PROTONIX) 40 mg tablet take 1 tablet by mouth daily 30 tablet 5 escitalopram oxalate (LEXAPRO) 20 mg tablet TAKE 1 and ONE-HALF TABLETS BY MOUTH DAILY 45 tablet 5 LORazepam (ATIVAN) 0.5 mg Take 1 tablet by mouth daily at bedtime for 180 days. 30 tablet 5 tiZANidine (ZANAFLEX) 4 mg tablet TAKE 1 TABLET BY MOUTH TWICE DAILY NEEDED for headache 30 tablet 0 omega 2-ufe-eyz-fish oil 300 mg (120 mg- 180mg)-1,000 mg cap take 2 capsules by mouth at bedtim (more content not included)... [facility] 10-24-2023 History of Present illness Narrative The patient is sent for evaluation and an opinion regarding treatment by Facundo Pena, who will receive a copy of this report by mail or through the shared medical record. CHIEF COMPLAINT: José Rojas is a 63 year old male who presents today for new evaluation of bilateral thumbs. 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 He has not had any surgery for this. He did have a left thumb extensor tendon laceration repair at the level of the IP joint and has residual numbness from this. He has had injections over the years by Dr. Pena that helped initially but do not help anymore. At this point he is hopeful for surgery. He does have a heart stent but no diabetes or inflammatory arthritis. Previous treatment or work-up includes: As above. ROS: REVIEW OF SYSTEMS: Constitutional: Fever/chills: No Cardiovascular: Chest Pain: No Respiratory: SOB: No Musculoskeletal: as noted in the HPI Neurologic: as noted in the HPI Endocrine: Diabetes: No Tobacco user? Yes SOCIAL HISTORY: Tobacco Use: .5 packs/day, for 10 years. Types: Cigarettes FAMILY HISTORY: FAMILY HISTORY Problem Relation Age of Onset other (back pain) Father neck spurs Heart Mother 45 NM, arthritis other (back pain) Brother None Sister x2, FM PAST MEDICAL HISTORY Diagnosis Date Acquired hallux limitus of left foot Acute [place] (HCC) 08/2007 angina - bare metal stent x1 - to see Dr Ortiz 08/30 Arthritis of right hip inj helps - needs THR, 06/15/17:insurance did not approve Back pain 10/14/2015 pain management rec CPRP - do not refill percocet - 07/08/17:send to [facility] Chronic pain of toe of left foot Depression zoloft spinning couldn't get going, prozac creating action (act on neighbor) - celexa ETOH abuse Fibromyalgia 05/22/20:saw pain psychologist, used mental control to ignore pains GERD (gastroesophageal reflux disease) aciphex Hematuria 2019 saw urology in [place] Hiatal hernia History of PTCA Dr Germain HTN (hypertension) lisinopril Hyperlipidemia lipitor Insomnia 04/16/2022 lexapro, amitryptilline 50 mg qhs, sleeping well Lung nodule 10/16/2014 6 mm - recheck at 1 yr and 2 yrs NEGATIVE HISTORY OF No pn,tb,ca,dm Spinal stenosis 1995 accident went to PT - neck, mid back, right leg, 10/09, percocet 1/2 tid - Dr Brooks (pain management) - tried fentayl, methadone Testicular lump s/p removal, benign - testosterone - Dr Valentine PAST SURGICAL HISTORY Procedure Laterality Date APPENDECTOMY 1983 PAST SURGICAL HISTORY OF 2008 one coronary stent/heart cath with stent PAST SURGICAL HISTORY OF 08/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 PAST SURGICAL HISTORY OF colonoscopy PAST SURGICAL HISTORY OF Left arthroscopy left knee PAST SURGICAL HISTORY OF Right shoulder and bicep PAST SURGICAL HISTORY OF Right hip PAST SURGICAL HISTORY OF Left toe TOTAL HIP REPLACEMENT Right 06/2022 FAMILY HISTORY Problem Relation Age of Onset other (back pain) Father neck spurs Heart Mother 45 [place], arthritis other (back pain) Brother None Sister x2, FM Social History Tobacco Use Smoking status: Every Day Packs/day: 0.50 Years: 10.00 Additional pack years: 0.00 Total pack years: 5.00 Types: Cigarettes Smokeless tobacco: Current Substance Use Topics Alcohol use: Not Currently Alcohol/week: 14.0 standard drinks of alcohol Types: 14 Cans of Beer (12oz) per week Comment: patient reports stopped drinking 01/2022 was drinking 375 mL bourbon a day Drug use: No ALLERGIES No Known Allergies Current Outpatient Medications Medication Sig Dispense Refill traMADol (ULTRAM) 50 mg tablet Take 1 tablet by mouth every 8 hours as needed for pain for up to 7 days. 21 tablet 0 rosuvastatin (CRESTOR) 5 mg tablet take 1 tablet by mouth at bedtime 90 tablet 3 naproxen (NAPROSYN) 500 mg tablet TAKE 1 TABLET BY MOUTH TWICE DAILY NEEDED FOR PAIN (TAKE WITH FOOD) [address] (PROTONIX) 40 mg tablet take 1 tablet by mouth daily 30 tablet 5 escitalopram oxalate (LEXAPRO) 20 mg tablet TAKE 1 and ONE-HALF TABLETS BY MOUTH DAILY 45 tablet 5 LORazepam (ATIVAN) 0.5 mg Take 1 tablet by mouth daily at bedtime for 180 days. 30 tablet 5 tiZANidine (ZANAFLEX) 4 mg tablet TAKE 1 TABLET BY MOUTH TWICE DAILY NEEDED for headache 30 tablet 0 omega 3-igo-fsw-fish oil 300 mg (120 mg- 180mg)-1,000 mg cap take 2 capsules by mouth at bedtime 60 capsule 8 VITAMIN D 25 mcg (1,000 unit) tab tablet take 1 tablet by mouth daily 90 tablet 3 pramipexole (MIRAPEX) 0.125 mg tablet Take 1 tablet by mouth daily at bedtime. 30 tablet 5 semaglutide (OZEMPIC) 0.25 mg or 0.5 mg(2 mg/1.5 mL) pen Inject 0.25 mg subcutaneously one time a week. 1.5 mL 0 oxyCODONE IR (ROXICODONE) 5 mg immediate release tablet Take 1 tablet by mouth every 6 hours as needed for pain. for pain. 20 tablet 0 metoprolol succinate ER (TOPROL XL) 50 mg 24 hr tablet TAKE 1 TABLET BY MOUTH DAILY AT BEDTIME 90 tablet 3 losartan (COZAAR) 50 mg tablet TAKE 1 TABLET BY MOUTH DAILY 90 tablet 3 oxyCODONE-acetaminophen (PERCOCET) 5-325 mg tablet Take 1 tablet by mouth every 8 hours as needed for pain. [address] (CAMPRAL) 333 mg tablet Take 2 tablets by mouth three times daily. VITAMIN B-2 100 mg tab Take 4 tablets by mouth once daily. 360 tablet 3 verapamil SR (CALAN SR, ISOPTIN SR) 180 mg CR tablet Take 1 tablet by mouth daily at bedtime. 90 tablet 0 galcanezumab-gnlm (EMGALITY PEN) 120 mg/mL pen Inject 1 mL subcutaneously once every month. Do not shake. Start after completing 240mg loading dose. 1 mL 11 Ascorbic Acid 1,000 mg tablet TAKE 1 TABLET BY MOUTH DAILY 90 tablet 3 aspirin, enteric coated (ECOTRIN LOW STRENGTH) 81 mg EC tablet Take 1 tablet by mouth once daily. 90 tablet 3 fluticasone (FLONASE) 50 mcg/actuation nasal spray use 2 (TWO) sprays IN EACH NOSTRIL DAILY AT BEDTIME 16 g 11 CPAP New set up: AutoCPAP 5-15 cm H2O, mask (pt pref), filters, heated humidity & tubing. Lifetime supplies. SUSANNAH G47.33. 1 Each 0 testosterone cypionate (DEPO-TESTOSTERONE) 200 mg/mL injection INJECT 0.5 ml INTRAMUSCULARLY EVERY TEN days. 6 mL 1 No current facility-administered medications for this visit. Physical Exam: Vitals: There were no vitals taken for this visit. Body Habitus: Well nourished and no acute distress Orientation: Normal, oriented to person, place and time Psych: Normal Skin: Color, texture, turgor normal. No rashes or lesions Sensation: Sensation to light touch is grossly normal bilaterally Both hands are examined. Sensation intact in median, radial, ulnar nerve distribution. AIN, PIN, ulnar motor intact. Make full fist. No pain or crepitus at the thumb first dorsal compartment or thumb A1 pulleys. Tender at bilateral first CMC with positive grind. No MP hyperextension. Carpal tunnel testing negative bilaterally. IMAGING: Final results and radiologist's interpretation, available in the [facility] health record. Images were reviewed with the patient/family members in the office today. My personal interpretation of the performed imaging is right thumb first CMC DJD, associated STT arthrosis. Similar findings on the left. Other Tests: None Assessment: (M18.0) Primary arthrosis of first carpometacarpal joints, bilateral (primary encounter diagnosis) Plan: He has failed protracted conservative treatment for bilateral thumb first CMC DJD. He would like to now proceed surgically. This is reasonable. I consented him for left thumb CMC arthroplasty. 6 months later we can proceed with the right. Surgery and postoperative course were outlined in detail. All questions answered. Rik Rosenthal MD This document has been created with the use of voice recognition technology. It may contain inaccuracies: misspellings, inaccurate syntax or word sense that escaped review. documented in this encounter [facility] 10-24-2023 History of Present illness Narrative Radiology Service Progress Note PATIENT NAME: José Rojas DATE OF SERVICE: October 24, 2023 TIME: 1:46 PM PATIENT IDENTITY VERIFICATION COMPLETED USING TWO (2) IDENTIFIERS: Name and Date of confirmed by patient verbally. FALL SCREENING: Has the patient had 2 falls in the last year or 1 fall with injury or currently using an Ambulatory Assistive Device (Walker, Cane, Wheelchair, Crutches, etc.)? No PATIENT GENDER DATA: Male PATIENT RELEVANT IMPLANT DATA REVIEWED: Not Applicable PATIENT PRESENTS WITH AN IMPLANTABLE OR ATTACHED VIDEO TAPE DUPLICATOR: No RADIOLOGY DEPARTMENT: General X-ray: Exam(s) Completed: Upper Extremity X-Ray(s): Fingers/Thumb, bilateral PERIPHERAL IV DATA: Not applicable SIGNED BY: RT Alfred(Parminder) October 24, 2023 1:46 PM documented in this encounter [facility] 10-24-2023 Note HNO ID: [id number] Author: [employer] WELLS RT(R) Service: ? Author Type: Technologist Type: Progress Notes Filed: 10/24/2023 13:47 Note Text: Radiology Service Progress Note PATIENT NAME: José Rojas DATE OF SERVICE: October 24, 2023 TIME: 1:46 PM PATIENT IDENTITY VERIFICATION COMPLETED USING TWO (2) IDENTIFIERS: Name and Date of confirmed by patient verbally. FALL SCREENING: Has the patient had 2 falls in the last year or 1 fall with injury or currently using an Ambulatory Assistive Device (Walker, Cane, Wheelchair, Crutches, etc.)? No PATIENT GENDER DATA: Male PATIENT RELEVANT IMPLANT DATA REVIEWED: Not Applicable PATIENT PRESENTS WITH AN IMPLANTABLE OR ATTACHED VIDEO TAPE DUPLICATOR: No RADIOLOGY DEPARTMENT: General X-ray: Exam(s) Completed: Upper Extremity X-Ray(s): Fingers/Thumb, bilateral PERIPHERAL IV DATA: Not applicable SIGNED BY: LATISHA Simon) October 24, 2023 1:46 PM [facility] 10-18-2023 Telephone encounter Note The following approved medication requests have been transmitted electronically. Requested Prescriptions Signed Prescriptions Disp Refills naproxen (NAPROSYN) 500 mg tablet 60 tablet 5 Sig: TAKE 1 TABLET BY MOUTH TWICE DAILY NEEDED FOR PAIN (TAKE WITH FOOD) Authorizing Provider: ELISA IZQUIERDO PA-C [facility] 10-18-2023 Miscellaneous Notes The following approved medication requests have been transmitted electronically. Requested Prescriptions Signed Prescriptions Disp Refills naproxen (NAPROSYN) 500 mg tablet 60 tablet 5 Sig: TAKE 1 TABLET BY MOUTH TWICE DAILY NEEDED FOR PAIN (TAKE WITH FOOD) Authorizing Provider: ELISA IZQUIERDO PA-C Requesting refills as follows: Requested Prescriptions Pending Prescriptions Disp Refills naproxen (NAPROSYN) 500 mg tablet [Pharmacy Med Name: naproxen 500 mg tablet] 60 tablet 5 Sig: TAKE 1 TABLET BY MOUTH TWICE DAILY NEEDED FOR PAIN (TAKE WITH FOOD) Last visit 09/19/2023 Next scheduled Visit date not found documented in this encounter [facility] 10-18-2023 Telephone encounter Note Requesting refills as follows: Requested Prescriptions Pending Prescriptions Disp Refills naproxen (NAPROSYN) 500 mg tablet [Pharmacy Med Name: naproxen 500 mg tablet] 60 tablet 5 Sig: TAKE 1 TABLET BY MOUTH TWICE DAILY NEEDED FOR PAIN (TAKE WITH FOOD) Last visit 09/19/2023 Next scheduled Visit date not found [facility] 10-03-2023 Telephone encounter Note The following approved medication requests have been transmitted electronically. Requested Prescriptions Signed Prescriptions Disp Refills pantoprazole DR (PROTONIX) 40 mg tablet 30 tablet 5 Sig: take 1 tablet by mouth daily Authorizing Provider: ELISA IZQUIERDO PA-C [facility] 10-03-2023 Telephone encounter Note The following approved medication requests have been transmitted electronically. Requested Prescriptions Signed Prescriptions Disp Refills escitalopram oxalate (LEXAPRO) 20 mg tablet 45 tablet 5 Sig: TAKE 1 and ONE-HALF TABLETS BY MOUTH DAILY Authorizing Provider: ELISA IZQUIERDO PA-C [facility] 10-03-2023 Miscellaneous Notes The following approved medication requests have been transmitted electronically. Requested Prescriptions Signed Prescriptions Disp Refills pantoprazole DR (PROTONIX) 40 mg tablet 30 tablet 5 Sig: take 1 tablet by mouth daily Authorizing Provider: ELISA IZQUIERDO PA-C Requesting refills as follows: Requested Prescriptions Pending Prescriptions Disp Refills pantoprazole DR (PROTONIX) 40 mg tablet [Pharmacy Med Name: pantoprazole 40 mg tablet,delayed release] 30 tablet 3 Sig: take 1 tablet by mouth daily Last visit 09/19/2023 Next scheduled n/a documented in this encounter [facility] 10-03-2023 Miscellaneous Notes The following approved medication requests have been transmitted electronically. Requested Prescriptions Signed Prescriptions Disp Refills escitalopram oxalate (LEXAPRO) 20 mg tablet 45 tablet 5 Sig: TAKE 1 and ONE-HALF TABLETS BY MOUTH DAILY Authorizing Provider: ELISA IZQUIERDO PA-C Requesting refills as follows: Requested Prescriptions Pending Prescriptions Disp Refills escitalopram oxalate (LEXAPRO) 20 mg tablet [Pharmacy Med Name: escitalopram 20 mg tablet] 45 tablet 2 Sig: TAKE 1 and ONE-HALF TABLETS BY MOUTH DAILY Last visit 09/19/2023 Next scheduled n/a documented in this encounter [facility] 10-03-2023 Telephone encounter Note Requesting refills as follows: Requested Prescriptions Pending Prescriptions Disp Refills pantoprazole DR (PROTONIX) 40 mg tablet [Pharmacy Med Name: pantoprazole 40 mg tablet,delayed release] 30 tablet 3 Sig: take 1 tablet by mouth daily Last visit 09/19/2023 Next scheduled n/a [facility] 10-03-2023 Telephone encounter Note Requesting refills as follows: Requested Prescriptions Pending Prescriptions Disp Refills escitalopram oxalate (LEXAPRO) 20 mg tablet [Pharmacy Med Name: escitalopram 20 mg tablet] 45 tablet 2 Sig: TAKE 1 and ONE-HALF TABLETS BY MOUTH DAILY Last visit 09/19/2023 Next scheduled n/a [facility] 09-19-2023 Note HNO ID: [id number] Author: ROSA ROBERTSON MD Service: ? Author Type: Physician Type: Progress Notes Filed: 09/19/2023 12:49 Note Text: cc: f/u dad Oct house arrest due to neighbor, can't go anywhere can't sleep, taking his dad's ativan, helps him sleep depression siblings trying to evict him from house he says we did not refill his amitryptilline, see mychart encounter 03/18/23 so he has not been taking amitryptilline he says there were side effects, so he is asking for ativan qhs PAST MEDICAL HISTORY Diagnosis Date Acquired hallux limitus of left foot Acute NM (HCC) 08/2007 angina - bare metal stent x1 - to see Dr Ortiz 08/30 Arthritis of right hip inj helps - needs THR, 06/15/17:insurance did not approve Back pain 10/14/2015 pain management rec CPRP - do not refill percocet - 07/08/17:send to [facility] Chronic pain of toe of left foot Depression zoloft spinning couldn't get going, prozac creating action (act on neighbor) - celexa ETOH abuse Fibromyalgia 05/22/20:saw pain psychologist, used mental control to ignore pains GERD (gastroesophageal reflux disease) aciphex Hematuria 2019 saw urology in [place] Hiatal hernia History of PTCA Dr Germain HTN (hypertension) lisinopril Hyperlipidemia lipitor Insomnia 04/16/2022 lexapro, amitryptilline 50 mg qhs, sleeping well Lung nodule 10/16/2014 6 mm - recheck at 1 yr and 2 yrs NEGATIVE HISTORY OF No pn,tb,ca,dm Spinal stenosis 1995 accident went to PT - neck, mid back, right leg, 10/09, percocet 1/2 tid - Dr Brooks (pain management) - tried fentayl, methadone Testicular lump s/p removal, benign - testosterone - Dr Valentine PE: BP 127/86 Pulse 98 Wt 85.7 kg (189 lb) BMI 26.36 kg/m? Gen: NAD Affect: wnl A/P: (F51.01) Primary insomnia (primary encounter diagnosis) Comment: under a lot of stress Plan: LORazepam (ATIVAN) 0.5 mg do not drink alcohol with ativan continue lexapro Rosa Robertson MD [facility] 09-19-2023 History of Present illness Narrative cc: f/u dad Oct house arrest due to neighbor, can't go anywhere can't sleep, taking his dad's ativan, helps him sleep depression siblings trying to evict him from house he says we did not refill his amitryptilline, see mychart encounter 03/18/23 so he has not been taking amitryptilline he says there were side effects, so he is asking for ativan qhs PAST MEDICAL HISTORY Diagnosis Date Acquired hallux limitus of left foot Acute NM (HCC) 08/2007 angina - bare metal stent x1 - to see Dr Ortiz 08/30 Arthritis of right hip inj helps - needs THR, 06/15/17:insurance did not approve Back pain 10/14/2015 pain management rec CPRP - do not refill percocet - 07/08/17:send to [facility] Chronic pain of toe of left foot Depression zoloft spinning couldn't get going, prozac creating action (act on neighbor) - celexa ETOH abuse Fibromyalgia 05/22/20:saw pain psychologist, used mental control to ignore pains GERD (gastroesophageal reflux disease) aciphex Hematuria 2019 saw urology in [place] Hiatal hernia History of PTCA Dr Germain HTN (hypertension) lisinopril Hyperlipidemia lipitor Insomnia 04/16/2022 lexapro, amitryptilline 50 mg qhs, sleeping well Lung nodule 10/16/2014 6 mm - recheck at 1 yr and 2 yrs NEGATIVE HISTORY OF No pn,tb,ca,dm Spinal stenosis 1995 accident went to PT - neck, mid back, right leg, 10/09, percocet 1/2 tid - Dr Brooks (pain management) - tried fentayl, methadone Testicular lump s/p removal, benign - testosterone - Dr Valentine PE: BP 127/86 Pulse 98 Wt 85.7 kg (189 lb) BMI 26.36 kg/m Gen: NAD Affect: wnl A/P: (F51.01) Primary insomnia (primary encounter diagnosis) Comment: under a lot of stress Plan: LORazepam (ATIVAN) 0.5 mg do not drink alcohol with ativan continue lexapro Rosa Robertson MD documented in this encounter [facility] 08-10-2023 Note HNO ID: [id number] Author: FACUNDO PENA, DO Service: ? Author Type: Physician Type: Progress Notes Filed: 08/10/2023 13:06 Note Text: José Rojas is a patient of Rosa Robertson MD. CHIEF COMPLAINT: José Rojas is a 63 year old male who presents today for follow up of bilateral thumbs. HISTORY OF PRESENT ILLNESS: PAIN EVALUATION 08/10/2023 1120 Pain Level: 6 Pain Location: Finger Description: Sore;Sharp Duration Units: Months Frequency: Intermittent Follow-up of the thumbs Had CSI about 3 months ago, had relief for a couple of weeks Pain in the base of the thumbs Using his hands a lot recently due to preparing to move Denies any new injury PHYSICAL EXAMINATION: Specific MSK Exam TTP over the base of the thumbs Pain with CMC grind IMAGING: No imaging was performed today. CLINICAL IMPRESSION / ASSESSMENT: (M18.0) Arthritis of carpometacarpal (CMC) joint of both thumbs (primary encounter diagnosis) PLAN: He is only having short term relief from CSI to the CMC joints Will try another CSI to both thumbs at this time Recommend surgical consultation as well. Consult placed Follow-up as needed Small Joint Arthro/Inj: bilateral thumb CMC Informed Consent Burton Protocol A moment to CARE was completed. SIGN IN Personnel directly involved with the procedure wore the appropriate PPE. Special Equipment: N/A Patient/Surrogate Stated/Verified: Patient name, Date of , Relevant allergies and Intended procedure TIME OUT Intended patient and procedure match the source document(s). Relevant labs, photos, and/or imaging studies have been reviewed. Correct side/site marked and visible. Medications required for procedure verified. No fire risk assessment and interventions applicable. No implant(s) inserted. 08/10/2023 1:06 PM The procedure site was prepped in the usual sterile fashion. Medications (Right): 6 mg betamethasone acetate-betamethasone sodium phosphate 6 mg/mL Medications (Left): 6 mg betamethasone acetate-betamethasone sodium phosphate 6 mg/mL Anesthetics (Right): 1 mL lidocaine (PF) 10 mg/mL (1 %) Anesthetics (Left): 1 mL lidocaine (PF) 10 mg/mL (1 %) Outcome: tolerated well, no immediate complications Post-injection instructions were reviewed with the patient and the patient voiced understanding of these instructions. SIGN OUT All instruments, equipment, possible retained foreign bodies accounted for. Post-procedure follow-up management communicated and Plan of Care Visit completed when applicable Facundo Pena DO [facility] 08-10-2023 History of Present illness Narrative Associated Order(s): Small Joint Arthro/Inj: bilateral thumb CMC Post-Procedure Diagnose(s): Arthritis of carpometacarpal (CMC) joint of both thumbs José Rojas is a patient of Rosa Robertson MD. CHIEF COMPLAINT: José Rojas is a 63 year old male who presents today for follow up of bilateral thumbs. HISTORY OF PRESENT ILLNESS: PAIN EVALUATION 08/10/2023 1120 Pain Level: 6 Pain Location: Finger Description: Sore;Sharp Duration Units: Months Frequency: Intermittent Follow-up of the thumbs Had CSI about 3 months ago, had relief for a couple of weeks Pain in the base of the thumbs Using his hands a lot recently due to preparing to move Denies any new injury PHYSICAL EXAMINATION: Specific MSK Exam TTP over the base of the thumbs Pain with CMC grind IMAGING: No imaging was performed today. CLINICAL IMPRESSION / ASSESSMENT: (M18.0) Arthritis of carpometacarpal (CMC) joint of both thumbs (primary encounter diagnosis) PLAN: He is only having short term relief from CSI to the CMC joints Will try another CSI to both thumbs at this time Recommend surgical consultation as well. Consult placed Follow-up as needed Small Joint Arthro/Inj: bilateral thumb CMC Informed Consent Burton Protocol A moment to CARE was completed. SIGN IN Personnel directly involved with the procedure wore the appropriate PPE. Special Equipment: N/A Patient/Surrogate Stated/Verified: Patient name, Date of , Relevant allergies and Intended procedure TIME OUT Intended patient and procedure match the source document(s). Relevant labs, photos, and/or imaging studies have been reviewed. Correct side/site marked and visible. Medications required for procedure verified. No fire risk assessment and interventions applicable. No implant(s) inserted. 08/10/2023 1:06 PM The procedure site was prepped in the usual sterile fashion. Medications (Right): 6 mg betamethasone acetate-betamethasone sodium phosphate 6 mg/mL Medications (Left): 6 mg betamethasone acetate-betamethasone sodium phosphate 6 mg/mL Anesthetics (Right): 1 mL lidocaine (PF) 10 mg/mL (1 %) Anesthetics (Left): 1 mL lidocaine (PF) 10 mg/mL (1 %) Outcome: tolerated well, no immediate complications Post-injection instructions were reviewed with the patient and the patient voiced understanding of these instructions. SIGN OUT All instruments, equipment, possible retained foreign bodies accounted for. Post-procedure follow-up management communicated and Plan of Care Visit completed when applicable Facundo Pena DO documented in this encounter [facility] 08-10-2023 Miscellaneous Notes Patient last seen 05/12/2022. documented in this encounter [facility] 07-04-2023 Miscellaneous Notes Requesting refills as follows: Requested Prescriptions Pending Prescriptions Disp Refills escitalopram oxalate (LEXAPRO) 20 mg tablet [Pharmacy Med Name: escitalopram 20 mg tablet] 45 tablet 2 Sig: TAKE 1 and ONE-HALF TABLETS BY MOUTH DAILY Last visit 04/16/2022 Next scheduled 09/19/2023 documented in this encounter [facility] 07-01-2023 Miscellaneous Notes Patient last seen 05/12/2022. documented in this encounter [facility] 06-18-2023 Miscellaneous Notes Reason for Call: dizziness Patient endorses dizziness states that he had a fall yesterday. Pt states dizziness is most severe with changing positions, sitting to standing. Patient endorses taking muscle relaxer and drinking alcohol as well. Outcome: GO to ED Now, Patient states that he will call if girlfriend pt advised CALL 911 IF: * You develop any new symptoms * Your condition worsens * You are concerned or anxious about your condition for any other reason. Reason for Disposition SEVERE dizziness (e.g., unable to stand, requires support to walk, feels like passing out now) Answer Assessment - Initial Assessment Questions 1. DESCRIPTION: feels lightheaded, worse when you stand 2. LIGHTHEADED: Pt states that he fell yesterday 3. VERTIGO: denies Patient advised to go to the ED due to multiple red flag symptoms. Pt advised to call 911 if no one is available to take him to the emergency department. Protocols used: Dizziness - [id number] documented in this encounter [facility] 06-05-2023 Miscellaneous Notes Patient calling with health information: patient requesting health information pertaining to a head injury on Tuesday2023. Patient called nurse certification technician this morning at 2:59 am, for a headache and confusion with a lump on his head, and advised to go to the emergency. Patient did not go to the emergency, and calling for home care advice, stating he still has a headache, and appears to still have some confusion , but states, he is not convinced he needs to go to the emergency room, and not willing to go . Advised patient that he needs to be seen in the emergency room, but he states, he is not going to go and will Google what to do, to reduce the swelling on his head , reviewed information from his previous call and advised patient he really needs to go to the emergency and he continues to refuse, and verbalized understanding of information provided. Outcome: Patient states, he will call back or go to the emergency room if his symptoms worsen, and disconnected from the call . 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 Three days ago he was walking up steps and hit a wood beam. He blacked out for about 10-15 seconds but did not fall. Since then he has had a headache and neck pain. States he has chronic headaches but this has been worse than usual, Taking Zanaflex PRN for pain, has taken two today. It is not helping much, but does more than over the counter medications. States his head hurts everywhere He is off balance, has to hold on to things, this is also a chronic issue that has worsened since head injury. Patient has a lump on his head that is approximately 3 inches by 2 inches. States he is having confusion, forgetting things and uncertain where he is even though he is home. Outcome: Patient advised to go to ED now for evaluation. Reason for Disposition Followed a head injury Large swelling or bruise > 2 inches (5 cm) Protocols used: [id number], Head [id number] documented in this encounter [facility] 04-20-2023 Note HNO ID: [id number] Author: Facundo Pena, DO Service: ? Author Type: Physician Type: Progress Notes Filed: 04/20/2023 11:15 AM Note Text: José Rojas is a patient of Rosa Robertson MD. CHIEF COMPLAINT: José Rojas is a 62 year old male who presents today for follow up of bilateral thumbs. HISTORY OF PRESENT ILLNESS: PAIN EVALUATION 04/20/2023 0848 Pain Level: 8 Pain Location: Finger BILATERAL THUMB PAIN Description: Shooting Duration Amount of Time: 1 Duration Units: Months Frequency: Continuous Intervention/Comfort measure: Medication;Cold Follow-up of the bilateral thumbs Pain in the base of the thumbs Last seen for this about 18 months ago Received CSI at that time, which did help Denies any new injury to the hands PHYSICAL EXAMINATION: Specific MSK Exam TTP over the bilateral thumb CMC joints Pain with CMC grind testing IMAGING: No imaging was performed today. CLINICAL IMPRESSION / ASSESSMENT: (M18.0) Arthritis of carpometacarpal (CMC) joint of both thumbs (primary encounter diagnosis) PLAN: Discussed with him about treatment options for the CMC arthritis- CSI, surgery consult Will proceed with CSI to both thumbs at this time Activities as tolerated Follow-up as needed Small Joint Arthro/Inj: bilateral thumb CMC Informed Consent Burton Protocol A moment to CARE was completed. SIGN IN Personnel directly involved with the procedure wore the appropriate PPE. Special Equipment: N/A Patient/Surrogate Stated/Verified: Patient name, Date of , Relevant allergies and Intended procedure TIME OUT Intended patient and procedure match the source document(s). Relevant labs, photos, and/or imaging studies have been reviewed. Correct side/site marked and visible. Medications required for procedure verified. No fire risk assessment and interventions applicable. No implant(s) inserted. 04/20/2023 11:14 AM The procedure site was prepped in the usual sterile fashion. Medications (Right): 6 mg betamethasone acetate-betamethasone sodium phosphate 6 mg/mL Medications (Left): 6 mg betamethasone acetate-betamethasone sodium phosphate 6 mg/mL Anesthetics (Right): 1 mL lidocaine (PF) 10 mg/mL (1 %) Anesthetics (Left): 1 mL lidocaine (PF) 10 mg/mL (1 %) Outcome: tolerated well, no immediate complications Post-injection instructions were reviewed with the patient and the patient voiced understanding of these instructions. SIGN OUT All instruments, equipment, possible retained foreign bodies accounted for. Facundo Pena DO [facility] 04-07-2023 Miscellaneous Notes Contacted patient and scheduled a sooner appointment with Dr. Pena. There is nothing else that can be done besides the cancellation list. I can see if our office has someone else that could see him earlier. Facundo Pena DO José is calling Facundo Pena DO today Patient has been seen the past few years for thumb injections but had not been seen for a while due to some other health issues He recently went back to work and since then the thumb pain has become unbearable He is having a hard time gripping anything and sleeping due to pain Scheduled for soonest available in May and placed on but asked for a message to be put over for something sooner Please advise Patient has been identified by name and birthdate. Duration of symptoms: N/A Person calling: self Call patient at: at home [phone] (home) [phone] (cell) Was an appointment scheduled: Yes: Date/Time: 05/10 Closing statement: Symptom Call: Thank you for calling [facility], your call is very important. A nurse will call in approximately 2-4 hours during business hours. If this is an emergency, please contact 911. Ivette Jenkins Pss documented in this encounter [facility] 04-04-2023 Miscellaneous Notes Spoke with patient - patient was already aware of this. Closing encounter I would like him to see psychiatry. I ordered social work consult for psychiatry referral - Diann will call him today to give him name and numbers of psychiatrists to call MCM sent is he taking lexapro 30 mg and amitriptyline 50 mg? documented in this encounter [facility] 04-04-2023 Miscellaneous Notes Behavioral Health Social Work Progress Note Patient identified for [facility] from: PCP Reason for referral: Resources Behavioral Health Resources: Psychiatry med management [facility] encounter type: Telephone Encounter, [employer] Message Attempts to Outreach: 1 attempt Referral made: Psychiatry - External, Psychiatry - Internal Psychiatry-Internal referral type: Medication Management Psychiatry-External referral type: Medication Management Reason for external referral: Wait times at [facility] too long, Patient choice Final Disposition: Resources given Patient Discharged?: Yes Patient reported that caregiver was able to meet their needs today?: Yes SW placed a phone call to patient at the request of the PCP. Pt reported he is currently working with a therapist through [facility], and is looking for medication management referrals at this time. SW will provide the following referrals via [employer]: [facility] Psychiatry and Counseling Central Scheduling Call Center [phone] Counseling and psychiatry [facility] [address] [place] [address] Counseling and psychiatry [facility] [address] [place] [address] Counseling and psychiatry [facility] [address] [place] [address] Counseling and psychiatry [facility] [address] [place] [address] [facility] [address] [place] [address] [facility] [address] [place] [place] [address] [facility] [address] [place] [address] TIANA Ahuja, MICHELLE-Harsh April 04, 2023 documented in this encounter [facility] 04-01-2023 Miscellaneous Notes The following approved medication requests have been transmitted electronically. Requested Prescriptions Signed Prescriptions Disp Refills escitalopram oxalate (LEXAPRO) 20 mg tablet 45 tablet 2 Sig: Take 1 and 1/2 tablet by mouth daily Authorizing Provider: ELISA IZQUIERDO PA-C Requesting refills as follows: Requested Prescriptions Pending Prescriptions Disp Refills escitalopram oxalate (LEXAPRO) 20 mg tablet [Pharmacy Med Name: escitalopram 20 mg tablet] 45 tablet 11 Sig: Take 1 and 1/2 tablet by mouth daily Last visit 04/16/2022 Next scheduled 05/09/2023 documented in this encounter [facility] 02-03-2023 Miscellaneous Notes Physician: Steph Call from patient requesting refill. Please E-Scribe Last office visit 05/12/22 with Steph virtual Next office visit Not scheduled. Requested Prescriptions Pending Prescriptions Disp Refills tiZANidine (ZANAFLEX) 4 mg tablet [Pharmacy Med Name: tizanidine 4 mg tablet] 60 tablet 2 Sig: TAKE 1 TABLET BY MOUTH TWICE DAILY NEEDED FOR HEADACHE Pharmacy Name: [facility] Meryl Froylan documented in this encounter [facility] 01-24-2023 Miscellaneous Notes The following approved medication requests have been transmitted electronically. Requested Prescriptions Signed Prescriptions Disp Refills semaglutide (OZEMPIC) 0.25 mg or 0.5 mg(2 mg/1.5 mL) pen 1.5 mL 0 Sig: Inject 0.25 mg subcutaneously one time a week. Authorizing Provider: ELISA IZQUIERDO PA-C Requesting refills as follows: Requested Prescriptions Pending Prescriptions Disp Refills semaglutide (OZEMPIC) 0.25 mg or 0.5 mg(2 mg/1.5 mL) pen 1.5 mL 0 Sig: Inject 0.25 mg subcutaneously one time a week. Last visit 04/16/2022 documented in this encounter [facility] 01-18-2023 Instructions Sweetie Larsen MA - 01/18/2023 2:45 PM EDT Recommendation of a high top shoe/boot documented in this encounter [facility] 01-18-2023 History of Present illness Narrative Images from the original note were not included. The history is provided by the patient. Pain (foot) Pertinent negatives include no fever or numbness. Patient presents with: Pain (foot): Pt c/o pain in the bottom of the right heel that does go up the achilles. Pt relates that the pain started about 7 months ago. Pt relates that he has been off his feet for a few days and is not currently in pain. Pt states that he was trying mobic and naproxen for pain. Patient wearing a sturdy Vibram shoe however the insert needs to be replaced. ALLERGIES No Known Allergies Current Outpatient Medications on File Prior to Visit Medication Sig oxyCODONE IR (ROXICODONE) 5 mg immediate release tablet Take 1 tablet by mouth every 6 hours as needed for pain. for pain. metoprolol succinate ER (TOPROL XL) 50 mg 24 hr tablet TAKE 1 TABLET BY MOUTH DAILY AT BEDTIME losartan (COZAAR) 50 mg tablet TAKE 1 TABLET BY MOUTH DAILY oxyCODONE-acetaminophen (PERCOCET) 5-325 mg tablet Take 1 tablet by mouth every 8 hours as needed for pain. acamprosate DR (CAMPRAL) 333 mg tablet Take 2 tablets by mouth three times daily. rosuvastatin (CRESTOR) 5 mg tablet TAKE 1 TABLET BY MOUTH AT BEDTIME omega 0-hdr-ugq-fish oil 300 mg (120 mg- 180mg)-1,000 mg cap TAKE 2 CAPSULES BY MOUTH AT BEDTIME tiZANidine (ZANAFLEX) 4 mg tablet Take 1 tablet by mouth twice daily as needed (Headache). VITAMIN B-2 100 mg tab Take 4 tablets by mouth once daily. amitriptyline (ELAVIL) 50 mg tablet Take 1 tablet by mouth daily at bedtime. semaglutide (OZEMPIC) 0.25 mg or 0.5 mg(2 mg/1.5 mL) pen Inject 0.25 mg subcutaneously one time a week. verapamil SR (CALAN SR, ISOPTIN SR) 180 mg CR tablet Take 1 tablet by mouth daily at bedtime. galcanezumab-gnlm (EMGALITY PEN) 120 mg/mL pen Inject 1 mL subcutaneously once every month. Do not shake. Start after completing 240mg loading dose. pantoprazole DR (PROTONIX) 40 mg tablet TAKE 1 TABLET BY MOUTH DAILY naproxen (NAPROSYN) 500 mg tablet Take 1 tablet by mouth twice daily as needed (for pain). Take with food Ascorbic Acid 1,000 mg tablet TAKE 1 TABLET BY MOUTH DAILY VITAMIN D 25 mcg (1,000 unit) tab tablet TAKE 1 TABLET BY MOUTH DAILY escitalopram oxalate (LEXAPRO) 20 mg tablet Take 1.5 tablets by mouth once daily. aspirin, enteric coated (ECOTRIN LOW STRENGTH) 81 mg EC tablet Take 1 tablet by mouth once daily. fluticasone (FLONASE) 50 mcg/actuation nasal spray use 2 (TWO) sprays IN EACH NOSTRIL DAILY AT BEDTIME CPAP New set up: AutoCPAP 5-15 cm H2O, mask (pt pref), filters, heated humidity & tubing. Lifetime supplies. SUSANNAH G47.33. testosterone cypionate (DEPO-TESTOSTERONE) 200 mg/mL injection INJECT 0.5 ml INTRAMUSCULARLY EVERY TEN days. No current facility-administered medications on file prior to visit. Review of Systems Constitutional: Negative for chills and fever. Cardiovascular: Negative for leg swelling. Musculoskeletal: Negative for joint swelling. Skin: Negative for rash and wound. Neurological: Negative for numbness. Hematological: Does not bruise/bleed easily. Physical Exam Constitutional: Appearance: Normal appearance. HENT: Head: Normocephalic and atraumatic. Cardiovascular: Pulses: Dorsalis pedis pulses are 2+ on the right side and 2+ on the left side. Posterior tibial pulses are 2+ on the right side and 2+ on the left side. Musculoskeletal: General: Tenderness present. Normal range of motion. Right foot: Deformity and tenderness present. Left foot: Deformity present. Feet: Comments: Flexible pes planus foot type with compensating forefoot splay. Calcaneal eversion with weight-bearing. Mild hallux abductovalgus deformity with flexible hammertoe digits. Collapse of the medial arch with weightbearing. Pain with palpation to the right plantar plantar fascia and posterior heel and Achilles tendon. Feet: Comments: X-ray result: There is no evidence of acute fracture, subluxation or dislocation seen. The soft tissues are grossly normal. A posterior calcaneal enthesophyte is present. Soft tissue swelling is seen over the dorsum of the forefoot. Pes planus deformity is present. Spurring is seen at the talonavicular joint at the dorsal aspect of the lateral view. Skin: Capillary Refill: Capillary refill takes less than 2 seconds. Findings: No abrasion, bruising, ecchymosis, laceration or rash. Rash is not nodular. Nails: There is no clubbing. Neurological: General: No focal deficit present. Mental Status: He is alert and oriented to person, place, and time. Sensory: Sensation is intact. Gait: Gait normal. Comments: Antalgic gait. Increased pronation throughout the gait cycle. Psychiatric: Mood and Affect: Mood normal. Hemoglobin A1C Date Value Ref Range Status 06/14/2022 5.4 4.8 - 5.9 % Final ASSESSMENT Foot pain, bilateral (primary encounter diagnosis) Calcaneal spur, unspecified laterality Osteoarthritis, unspecified osteoarthritis type, unspecified site Plantar fasciitis History of rupture of achilles tendon Return if symptoms worsen or fail to improve. TREATMENT Etiology of patient's problems were discussed at length. - All questions asked were answered. - X-rays reviewed with the patient. - Conservative management was discussed. - Applied ankle strapping to bilateral feet. - Discussion of supportive shoes and orthotics to help realign the feet to its maximum functional position and minimize abnormal motion of the foot and ankle which help alleviate foot and ankle strain. The orthosis will help prevent further suffering and control further progression of the deformity. - Recommendation of a high top shoe or boot. - Rx sent to [facility] for custom orthotics. - Recommendation of OTC topical pain medication. - OK to continue tylenol, nonsteroidal anti-inflammatory. - Rest and elevate daily - Discussion of light stretching. Discussed medication dosage, usage, goals of therapy, and side effects. Written instructions (see patient instructions) and verbal health teaching given to patient, patient verbalizes understanding and agrees with treatment plan. I spent 22 minutes on the date of the service which included preparing to see the patient, [id number] patient care, completing clinical documentation, obtaining and/or reviewing separately obtained history, performing a medically appropriate examination, counseling and educating the patient/family/caregiver, ordering medications, tests, or procedures and care coordination (not separately reported). The documentation for this note was completed by Sweetie Larsen MA acting as scribe for Felecia Caballero DPM. January 18, 2023 2:23 PM I agree with the Chief Complaint, ROS, and Past Histories independently gathered by the clinical clinical support specialist and the remaining scribed note accurately describes my personal service to the patient. This document has been created with the use of voice recognition technology. It may contain inaccuracies, misspellings, inaccurate syntax or inappropriate word context that escaped review. Felecia Caballero DPM documented in this encounter [facility] 01-10-2023 Miscellaneous Notes 2 attempt, lvm to schedule Lvm and [facility] sent to schedule If acutely sob would seek eval today, but if can wait can see someone next week. Reason for Disposition [1] MODERATE longstanding difficulty breathing (e.g., speaks in phrases, SOB even at rest, pulse 100-120) AND [2] SAME as normal Answer Assessment - Initial Assessment Questions Patient states he has been waking up several times a week gasping for air. Feels like he can't catch his breath and then has to focus on taking deep full breaths to resolve his symptoms. He has sleep apnea, has not been using CPAP due to mask discomfort. Denies sob at any other time, does no become winded with exercise or exertion. Denies any chest pain, dizziness, nausea, numbness/tingling. Oximeter has been above 96%. Denies sob currently, speaking in full sentences. Advised appt, please assist in scheduling - patient hung up while waiting for scheduling Patient will also contact oil field technician and resume CPAP 1. RESPIRATORY STATUS: [place] sob during the night, awoke gasping for air, felt like he could not catch his breath. Had to focus on taking deep full breaths to resolve symptoms 2. ONSET:intermittently for 2 months, becoming worse - occurs a few times a week 3. PATTERN : Occurs during the night, wakes him up. Does not occur during the day or with exertion or exercise 4. SEVERITY: Denies sob now, woke up during the night gasping for air, has not been using CPAP- does not like mask 5. RECURRENT SYMPTOM: Has had sleep apnea at night 6. CARDIAC HISTORY: Hx NM 7. LUNG HISTORY:Denies 8. CAUSE: Not using CPAP? 9. OTHER SYMPTOMS:No chest pain, dizziness, nausea, numbness/tingling 10. O2 SATURATION MONITOR: Above 96% GO TO THE EMERGENCY ROOM OR CALL 911 IF: * You develop any new symptoms * Your condition worsens * You are concerned or anxious about your condition for any other reason. If you have any questions, call back. Protocols used: Breathing [id number] documented in this encounter [facility] 01-08-2023 Miscellaneous Notes Patient calling with symptoms regarding sleep apnea/anxiety. Patient denies any new or worsening symptoms of which a provider is not aware:No conferenced pt with Victoria ARANGO at pcp office for triage. Ivett Snyder LPN documented in this encounter [facility] 12-29-2022 Note HNO ID: [id number] Author: Brock Valdez PA-C Service: ? Author Type: Physician Automotive Sales Specialist Type: Progress Notes Filed: 12/29/2022 11:27 AM Note Text: José Rojas underwent L EPL extensor tendon repair (zone 1-2) of the thumb on 12/14/22. The patient returns today for follow-up. The patient reports no major issues since surgery outside of general post operative pain. On exam of the L hand, the volar blocking splint was clean and intact. All incisions were healed without evidence of infection. All sutures removed. (+) active extension of L distal thumb joint ASSESSMENT: Post-operative state (primary encounter diagnosis) PLAN: Referral to OT placed for splint fabrication, and initiation of extensor tendon rehabilitation protocol (zone 1-2). Treated like a mallet finger injury. Patient understands that he must keep the digit in extension for a total of 8 weeks. Patient placed into a thumb spica splint by me. Splint extended to the tip of the digit. Return to clinic in 6 weeks for re-assessment. 15 Minutes total visit spent face to face with patient. Greater than 50% of the time was spent for counseling and coordination of care, discussing treatment options and recommendations. Brock Valdez PA-C December 29, 2022 11:05 AM This note was generated with voice recognition software and may contain errors, including spelling, grammar, syntax and misrecognition of what was dictated, that are not fully corrected. [facility] 12-29-2022 History of Present illness Narrative José Rojas underwent L EPL extensor tendon repair (zone 1-2) of the thumb on 12/14/22. The patient returns today for follow-up. The patient reports no major issues since surgery outside of general post operative pain. On exam of the L hand, the volar blocking splint was clean and intact. All incisions were healed without evidence of infection. All sutures removed. (+) active extension of L distal thumb joint ASSESSMENT: Post-operative state (primary encounter diagnosis) PLAN: Referral to OT placed for splint fabrication, and initiation of extensor tendon rehabilitation protocol (zone 1-2). Treated like a mallet finger injury. Patient understands that he must keep the digit in extension for a total of 8 weeks. Patient placed into a thumb spica splint by me. Splint extended to the tip of the digit. Return to clinic in 6 weeks for re-assessment. 15 Minutes total visit spent face to face with patient. Greater than 50% of the time was spent for counseling and coordination of care, discussing treatment options and recommendations. Brock Valdez PA-C December 29, 2022 11:05 AM This note was generated with voice recognition software and may contain errors, including spelling, grammar, syntax and misrecognition of what was dictated, that are not fully corrected. documented in this encounter [facility] 12-29-2022 History of Present illness Narrative This encounter was opened in error. Patient was a No-Show. Please disregard. documented in this encounter [facility] 12-21-2022 Miscellaneous Notes Addended by: BROCK DE LA TORRE on: 12/21/2022 02:48 PM Modules accepted: Orders Patient is calling for a refill of pain medicine. documented in this encounter [facility] 12-14-2022 Note HNO ID: [id number] Author: Moises Lindsey AA Service: Anesthesiology Author Type: Bending Frame Operator Type: Anesthesia Procedure Notes Filed: 12/14/2022 8:53 AM Note Text: ANESTHESIOLOGY PROCEDURE NOTE Airway General Information Procedure Start Time/Medication Administration: 12/14/2022 8:42 AM Patient location during procedure: OR Patient identity confirmed: arm band, care child study team director and patient Staffing Anesthesiologist: Dexter Ernst MD CAA: Moises Lindsey AA Performed by: SOFI Indications and Patient Condition Indications for airway management: anesthesia Preoxygenated: yes anesthesia circuit Method: asleep Final Airway Details Final airway type: supraglottic airway Number of attempts at approach: 1 Final Supraglottic Airway: i-gel Size 5 Seal Adequate: yes Airway not difficult SIGNATURE: TORY Valentin PATIENT NAME: José Rojas DATE: December 14, 2022 TIME: 8:52 AM CSN: [id number] [facility] 12-14-2022 Note HNO ID: [id number] Author: Dexter Ernst MD Service: ? Author Type: Anesthesiologist Type: Anesthesia Procedure Notes Filed: 12/14/2022 8:35 AM Note Text: ANESTHESIOLOGY PROCEDURE NOTE Peripheral Nerve Block General Information Procedure Start Time/Medication Administration: 12/14/2022 7:44 AM Procedure End time: 12/14/2022 7:54 AM Patient location during procedure: pre-op Timeout Performed Pre-procedure: timeout performed Consent Obtained: Yes Patient identity confirmed: arm band and patient Reason for block: post-op pain management/at surgeon's request Staffing Anesthesiologist: Dexter Ernst MD Performed by: anesthesiologist Preparation Sterility Preparation: hand hygiene performed prior to procedure, sterile gloves, drapes, and procedure tray, surgical cap used, mask used, sterile drape used during line insertion, skin prep agent completely dried prior to procedure Site Prep: Chloraprep Pre-Procedure Neuro Exam Location: LUE Sensory: intact Motor: intact Procedure Details Patient Position: supine Monitoring: Pulse OX, EKG and NIBP Block Type Upper Extremity: brachial plexus Approach: axillary Laterality: left Injection Technique: single-shot Ultrasound Guided: Yes Image in Chart: yes Local Infiltration: Yes Needle Needle Type: echogenic Assessment Injection assessment: negative aspiration and no paresthesia on injection Paresthesia: immediately resolved Medications Administered ropivacaine (PF) 5 mg/mL (0.5 %) injection (NAROPIN) - peripheral nerve block 17.5 mL - 12/14/2022 7:44:00 AM dexamethasone sodium phosphate injection (DECADRON) - peripheral nerve block 4 mg - 12/14/2022 7:44:00 AM SIGNATURE: Dexter Ernst MD PATIENT NAME: José Rojas DATE: December 14, 2022 TIME: 8:33 AM CSN: [id number] [facility] 12-13-2022 Miscellaneous Notes Type of form: [facility]: ED report Form received via fax When form is completed, Scan form into Epic Form placed on PCP desk for review documented in this encounter [facility] 12-09-2022 Miscellaneous Notes Reason for Call: Patient called with concern about a hardness in the vein of his left hand. States he recently had an IV at the site of the hardness. Upon triage patient states he feels light headed and like he is going to pass out when he stands up. Outcome: Advised to Call EMS 911 NOW. Patient verbalized understanding and is agreeable to the plan. If you have any questions, you can call Nurse nonprofit financial controller back. Reason for Disposition Shock suspected (e.g., cold/pale/clammy skin, too weak to stand, low BP, rapid pulse) Answer Assessment - Initial Assessment Questions 1. SYMPTOM: Left hand. Vein in hand is hard to touch. Feels like there is no blood flow. 2. ONSET: about 3 days ago. 3. IV WHAT: What kind of IV line do you have? Peripheral IV 4. IV WHERE: Left hand 5. IV WHEN: Unsure 6. IV WHY: No current IV acess 7. IV RUNNING OK: No current IV access 8. PAIN: Sore to the touch. 9. OTHER SYMPTOMS: Reports feeling light headed and like he is going to pass out when standing. (Reported at end of Triage) 10. VISITING NURSE: Did not assess. Protocols used: IV Site (Skin) [id number] documented in this encounter [facility] 12-07-2022 History and physical note HISTORY AND PHYSICAL EXAMINATION SERVICE DATE: 12/07/2022 SERVICE TIME: 12:54 PM PRIMARY CARE PHYSICIAN: Raheel Hunt DO REASON FOR VISIT: José Rojas is a 62 year old year old male who is scheduled for Procedure(s) (LRB): TRANSFER 1ST TENDON FOREARM (Left) at the request of Dr. De La Torre for consultation. My final recommendation will be communicated back to the requesting physician by way of shared medical record or letter. The patient has the following: ACTIVE PROBLEM LIST Radicular Pain of Right Lower Extremity Vitamin D Deficiency Lumbago Misuse of Drugs Opioid Dependence (Hcc) Myofascial Pain Syndrome Neck Pain Lumbar Spinal Stenosis Testosterone Deficiency Hypogonadism in Male Osteoarthrosis, Unspecified Whether Generalized Or Localized, Pelvic Region and Thigh Epididymal Mass Adenomatoid Tumor Right Shoulder Pain Cigarette Nicotine Dependence Without Complication Bilateral Low Back Pain Without Sciatica Cervicalgia Secondary Osteoarthritis of Multiple Sites Fibromyalgia Chest Pain Syncope Heart Palpitations Dizziness Mixed Hyperlipidemia Atherosclerosis of [place] Coronary Artery of [place] Heart With Stable Angina Pectoris (Hcc) Encounter for Screening for Malignant Neoplasm of Colon Anxiety Osteoarthritis of Right Hip Medial Meniscus Tear Htn (Hypertension) Floaters, Bilateral Asteroid Hyalosis of Right Eye Primary Osteoarthritis of Right Hip Degeneration of Lumbar Intervertebral Disc Scoliosis (And Kyphoscoliosis), Idiopathic Sacroiliac Joint Pain Left Cervical Radiculopathy Achilles Rupture, Left Achilles Tendinosis Achilles Tendinitis of Left Lower Extremity Enthesopathy of Foot Achilles Tendon Pain Calcification of Tendon Traumatic Complete Tear of Right Rotator Cuff Status post arthroscopy of right shoulder (01/17/19) Epididymitis Testis Pain Rupture of Right Distal Biceps Tendon Status Post Right Distal Biceps Tendon Repair (12/27/2019) Acute NM (Hcc) Gerd (Gastroesophageal Reflux Disease) Lung Nodule Acquired Hallux Limitus of Left Foot Pain in Toe of Left Foot Sebaceous Cyst Concussion With Loss of Consciousness Cognitive Communication Deficit Obesity, Class I, Bmi 30-34.9 Sleep Apnea Other Specified Injury of Extensor Muscle, Fascia and Tendon of Left Thumb At Wrist and Hand Level, Initial Encounter Subjective CHIEF COMPLAINT: Decreased left thumb extension HPI: Patient is a 62 year old male presenting for pre-anesthesia consultation. Patient reports that 2 weeks ago he left thumb with a sharp blade. Patient is unsure of what he was cutting at that time. 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 Current rates pain 5 out of 10 today and describes it as a burning sensation. Endorses some numbness and tingling in his left thumb. Patient reports he has decreased left thumb extension. Patient has been recommended for above surgery. PAST MEDICAL HISTORY Diagnosis Date Acquired hallux limitus of left foot Acute NM (HCC) 08/2007 angina - bare metal stent x1 - to see Dr Ortiz 08/30 Arthritis of right hip inj helps - needs THR, 06/15/17:insurance did not approve Back pain 10/14/2015 pain management rec CPRP - do not refill percocet - 07/08/17:send to [facility] Chronic pain of toe of left foot Depression zoloft spinning couldn't get going, prozac creating action (act on neighbor) - celexa ETOH abuse Fibromyalgia 05/22/20:saw pain psychologist, used mental control to ignore pains GERD (gastroesophageal reflux disease) aciphex Hematuria 2019 saw urology in [place] Hiatal hernia History of PTCA Dr Germain HTN (hypertension) lisinopril Hyperlipidemia lipitor Lung nodule 10/16/2014 6 mm - recheck at 1 yr and 2 yrs NEGATIVE HISTORY OF No pn,tb,ca,dm Spinal stenosis 1995 accident went to PT - neck, mid back, right leg, 10/09, percocet 1/2 tid - Dr Brooks (pain management) - tried fentayl, methadone Testicular lump s/p removal, benign - testosterone - Dr Valentine PAST SURGICAL HISTORY Procedure Laterality Date APPENDECTOMY 1983 PAST SURGICAL HISTORY OF 2008 one coronary stent/heart cath with stent PAST SURGICAL HISTORY OF 08/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 PAST SURGICAL HISTORY OF colonoscopy PAST SURGICAL HISTORY OF Left arthroscopy left knee PAST SURGICAL HISTORY OF Right shoulder and bicep PAST SURGICAL HISTORY OF Right hip PAST SURGICAL HISTORY OF Left toe TOTAL HIP REPLACEMENT Left 06/2022 FAMILY HISTORY Problem Relation Age of Onset other (back pain) Father neck spurs Heart Mother 45 NM, arthritis other (back pain) Brother None Sister x2, FM SOCIAL HISTORY: Social History Tobacco Use Smoking status: Every Day Packs/day: 0.50 Years: 10.00 Total pack years: 5.00 Types: Cigarettes Smokeless tobacco: Current Substance Use Topics Alcohol use: Never Alcohol/week: 14.0 standard drinks of alcohol Types: 14 Cans of Beer (12oz) per week Comment: does not drink Drug use: No MEDICATIONS: Prior to Admission medications as of 12/06/22 8774 Medication Sig Last Dose Taking rosuvastatin (CRESTOR) 5 mg tablet TAKE 1 TABLET BY MOUTH AT BEDTIME omega 6-rbg-dvy-fish oil 300 mg (120 mg- 180mg)-1,000 mg cap TAKE 2 CAPSULES BY MOUTH AT BEDTIME tiZANidine (ZANAFLEX) 4 mg tablet Take 1 tablet by mouth twice daily as needed (Headache). VITAMIN B-2 100 mg tab Take 4 tablets by mouth once daily. amitriptyline (ELAVIL) 50 mg tablet Take 1 tablet by mouth daily at bedtime. semaglutide (OZEMPIC) 0.25 mg or 0.5 mg(2 mg/1.5 mL) pen Inject 0.25 mg subcutaneously one time a week. verapamil SR (CALAN SR, ISOPTIN SR) 180 mg CR tablet Take 1 tablet by mouth daily at bedtime. galcanezumab-gnlm (EMGALITY PEN) 120 mg/mL pen Inject 1 mL subcutaneously once every month. Do not shake. Start after completing 240mg loading dose. pantoprazole DR (PROTONIX) 40 mg tablet TAKE 1 TABLET BY MOUTH DAILY naproxen (NAPROSYN) 500 mg tablet Take 1 tablet by mouth twice daily as needed (for pain). Take with food Ascorbic Acid 1,000 mg tablet TAKE 1 TABLET BY MOUTH DAILY VITAMIN D 25 mcg (1,000 unit) tab tablet TAKE 1 TABLET BY MOUTH DAILY escitalopram oxalate (LEXAPRO) 20 mg tablet Take 1.5 tablets by mouth once daily. losartan (COZAAR) 50 mg tablet TAKE 1 TABLET BY MOUTH DAILY metoprolol succinate ER (TOPROL XL) 50 mg 24 hr tablet Take 1 tablet by mouth daily at bedtime. Snfou-0-ABO-EPA-Fish Oil 1,000 mg (120 mg-180 mg) cap TAKE 2 CAPSULES BY MOUTH once DAILY AT BEDTIME omega-3 fatty acids 1,000 mg cap Take 2 capsules by mouth once daily. At bedtime aspirin, enteric coated (ECOTRIN LOW STRENGTH) 81 mg EC tablet Take 1 tablet by mouth once daily. fluticasone (FLONASE) 50 mcg/actuation nasal spray use 2 (TWO) sprays IN EACH NOSTRIL DAILY AT BEDTIME CPAP New set up: AutoCPAP 5-15 cm H2O, mask (pt pref), filters, heated humidity & tubing. Lifetime supplies. SUSANNAH G47.33. testosterone cypionate (DEPO-TESTOSTERONE) 200 mg/mL injection INJECT 0.5 ml INTRAMUSCULARLY EVERY TEN days. Medication Comments documented by Mary Leyva RN on 11/16/2022 at 1530. 11/16/22 No medication changes with the past 30 days. Mary Leyva RN CURRENT ALLERGIES: ALLERGIES No Known Allergies COVID VACCINATION STATUS: Covid Immunization Dates Overdue - COVID-19 VACCINE (3 - Pfizer series) Overdue since 11/20/2020 09/25/2020 Imm Admin: COVID-19 original vaccine, age 12+ yr, monovalent (PFIZER-BIONTECH - PURPLE TOP) 09/03/2020 Imm Admin: COVID-19 original vaccine, age 12+ yr, monovalent (PFIZER-BIONTECH - PURPLE TOP) REVIEW OF SYSTEMS: PAIN ASSESSMENT: Pain Pain Level: 5 Pain Location: Hand-Left Description: Burning Duration Units: Years Frequency: Continuous General: No weight loss, malaise or fevers. Neuro:+DT 11/18/22 Denies strokes, seizures, lightheadedness, dizziness, syncope, headaches, tremors. Respiratory:+smoke No history of current cough or dyspnea, or pneumonia in the past 6 weeks. No history of respiratory/pulmonary symptoms or problems. Cardiovascular:+CAD s/p stent in LAD 2008 ,htn, hld, palpations Negative for Recent NM, Angina, Arrhythmia, Chest Pain GI:+gerd, alcohol abuse, DT Denies abdominal pain, nausea, vomiting, diarrhea, constipation, hematochezia, melena. : No history of dysuria, frequency or incontinence,, stones or chronic kidney disease Endocrine: No history of diabetes. Has not taken steroids within the past 30 days. No history of endocrinological symptoms or problems. Hematology:+ASA Denies bleeding disorders, clotting disorders, history of blood clots. Oncology: No history of CA metastasis, chemo within 30 days, or radiotherapy within 90 days. Has not lost 10% of body wt in 6 months. No history of oncological symptoms or problems. Psych: No history of psychiatric symptoms or problems. Musculoskeletal:+fibromylagia Back pain Skin: Negative for lesions, rash and itching. Objective PHYSICAL EXAM: VITALS: BP 149/97 Pulse 103 Temp (Src) 98.3 (Oral) Resp 20 Ht 5' 11 (1.80m) Wt 211 lb (95.7kg) SpO2 99% BMI 29.44 kg/(m^2). General: Alert and oriented, No acute distress Skin: Normal color, no rash, no lesions. HEENT: EOM, pupils equal, round and reactive. Cardiovascular: Normal S1 & S2, no rubs, murmurs or gallops. No JVD. Pulse regular. No carotid bruits appreciated. Lungs: Normal breath sounds, no wheezes or crackles. Abdomen: Soft, non-tender, no rigidity., Positive bowel sounds Extremities: No deformity, no edema or tenderness, no joint swelling or clubbing. Neurological: Normal motor skills. Pulses: Carotid and radial pulses normal +2. Diagnostic tests reviewed for today's visit: Lab Value Units Date High Low HB No results within date range. HCT No results within date range. WBC No results within date range. PLT No results within date range. NA No results within date range. K No results within date range. GLUC No results within date range. BUN No results within date range. CREAT No results within date range. PTSEC No results within date range. INR No results within date range. APTT No results within date range. ALT No results within date range. AST No results within date range. TBILI No results within date range. TSH No results within date range. Lab Value Units Date High Low HCGQT No results within date range. UHCG No results within date range. HCG, BODY* No results within date range. Lab Value Units Date High Low ABORHD No results within date range. ABSCREEN No results within date range. Hemoglobin A1C (%) Date Value 06/14/2022 5.4 09/07/2021 5.4 01/13/2018 5.2 05/24/2017 5.4 11/26/2014 5.2 Most recent EK01/2022 Sinus rhythm Probable left atrial enlargement Borderline T abnormalities, inferior leads Borderline ECG Most recent stress Echo 2020 STRESS ECHO Peak HR 162 bpm. (100 % MPHR) Peak BP 192 mmHg/78 mmHg. Patient experienced no symptoms during stress. The left ventricular cavity size is decreased with stress. CONCLUSIONS: - Exam indication: Dyspnea on exertion - The exercise stress echo was negative for ischemia at 100 % of MPHR (8.3 METS). Average functional capacity for age and gender. - The left ventricle is normal in size. Left ventricular systolic function is normal. EF = 59 5% (2D biplane) - The right ventricle is normal in size. Right ventricular systolic function is normal. - Exam was compared with the prior echocardiographic exam performed on 08/11/16. US carotids 2017 IMPRESSION RIGHT SIDE Internal carotid artery: 40-59% stenosis. Vertebral artery: Patent and antegrade flow noted. LEFT SIDE Internal carotid artery: 0-19% stenosis. Vertebral artery: Patent and antegrade flow noted. Assessment/Plan 1. Pre-op exam Surgery 12/14/2022 2. 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) 3. Acute myocardial infarction, unspecified NM type, unspecified artery (HCC) S/p stent in LAD in 2008. On 81mg ASA. Follows with Dr. Ortiz, last seen 05/15/20. Denies chest pain, palpations, cough, SOB. 4. Primary hypertension BP in office 149/97 continue losartan , metoprolol 5. Mixed hyperlipidemia Continue rosuvastatin (Crestor) 6. Heart palpitations Patient denies palpations, fluttering 7. Cigarette nicotine dependence without complication 0.5 ppd x 10 years Encouraged smoking cessation. Advised no smoking DOS. 8. Sleep apnea, unspecified type Noncompliant with cpap 9. Gastroesophageal reflux disease without esophagitis Stable continue pantoprazole (Protonix) 10. Fibromyalgia Stable has pain in shoulder and right arm 11. Alcohol abuse 12. History of alcohol withdrawal delirium 13. Alcohol-induced acute pancreatitis, unspecified complication status Was admitted 11/18/22 with delirium tremens, acute alcohol-induced pancreatitis at [facility] after a fall. He was reaching up to get a cat and fell onto a chair and lost consciousness. He had a CT suggesting pancreatic contusion at [facility] and transferred to [facility]. Imaging showed fat stranding of pancrease and edema suggestive of acute pancreatitis possibly induced by alcohol. Lipase was normal at that time. AST elevated at 69 and ALT at 46. Patient reports he is doing much better. Denies abdominal pain, nausea, vomiting, diarrhea, constipation, hematochezia, melena. He was also started on acamprosate 3 times a day. Had follow up hospital admission 11/26/[address] Gallegos. Per note patient admits history of alcohol use. Patient denies alcohol use at todays visit. He reports last time he used was 01/2022. Denies tremors, shaking, withdrawal symptoms. Reports his memory is not as good since hitting his head. 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 ASA Class: 3 ANESTHESIA FINDINGS: Intubation History: No history of difficult intubation Significant Anesthesia Considerations: Difficult IV/Vein Access: reports had surgery on right arm and has difficult Ivs on that side. Needed to use lighted vein mapping for IV place. History of delirium tremens during hospital admission 11/18/22. Patient reports he has not had any alcohol since 01/2022 but 11/18/22 note reports patient would drink 375 mL bourbon throughout the day. Airway Exam: General: Normal appearance Mallampati Score is CLASS II ULBT: Class II - Lower incisors can bite the upper lip below the linn line Neck: Normal appearance and function, Distance from hyoid to mentum during neck extension is at least 3 finger breaths Mouth: Normal tongue size and Mouth opening greater than 2 finger breaths Dentition: Intact Airway History: No history of difficult intubation STOP BANG Score: SUSANNAH does not use CPAP/BiPAP PLAN This patient is optimally prepared for surgery . CONSULTS: Patient does not require consults for optimization at this time. Email sent to Dr. Gaston and Dr. Guthrie regarding recent DT Per Dr. Guthrie patient ok to proceed at [facility]. The Following Tests/Procedures Have Been Initiated: Labs not indicated per [facility] protocol, EKG not indicated per [facility] protocol Planned Anesthetic: Extremity regional block Instructions Given to Patient: Instructions located in the after visit summary. Patient given verbal and written preop instructions and voices comprehension and compliance. SIGNATURE: Mary Navarrete PA-C PATIENT NAME: José Rojas DATE: 12/07/2022 TIME: 2:07 PM documented in this encounter [facility] 12-07-2022 Instructions Mary Navarrete PA-C - 12/07/2022 8:36 AM EDT PATIENT PREOPERATIVE INSTRUCTIONS Self has scheduled you for your procedure at this surgery center: [facility]: [phone] --[phone] [address]. Please read below carefully for your personalized instructions. Arrival Time for Surgery: - The Surgery Center or hospital where you are having surgery will call the afternoon before surgery (or Tuesday for Tuesday surgery) with a scheduled arrival time. - If you have not heard by 4 pm, please contact the surgery center above. Please be aware that emergency situations arise, which may delay or change your surgical time. If this happens, we will notify you as soon as possible and regret any inconvenience. Dietary Restrictions: - No solid food after midnight. - You may have 12 ounces of clear liquids (water, clear juices such as apple juice or gatorade, carbonated beverages, clear tea, black coffee, jello) until 2 hours before scheduled arrival at facility. - Do not drink any alcohol after midnight the night before your surgery. Medications: Unless instructed differently below, stay on all of your medications until your surgery. Approved medications to take the morning of surgery with a sip of water: amitriptyline (Elavil), divalproex (Depakote), pantoprazole (Protonix), escitalopram oxalate (Lexapro), metoprolol, acamprosate DO NOT TAKE YOUR losartan THE NIGHT BEFORE OR MORNING OF SURGERY Use your inhalers as prescribed Hold Ozempic for one week prior to surgery - Please continue your current pain medications. Tizanidine (Zanaflex, If you take any medications for erectile dysfunction-Cialis (Tadalafil), Levitra, Staxyn (Vardenafil) Viagra (Sildenenafil please do not take these for 48 hours before surgery. If you start any new medications after today's visit, please contact the surgeon's office. Blood Thinning Medications: - Stop NSAIDS (Ibuprofen, Advil, Aleve, Motrin, Celebrex, Mobic, etc.) 7 days before surgery, as directed by your surgeon. - Do NOT stop aspirin or other anticoagulants without consulting with your oil field technician or prescribing physician. - Stop Vitamin E, ALL multi-vitamins, herbals and dietary supplements 7 days before surgery. - You may take Tylenol (Acetaminophen) or any of your pain medications that do not contain aspirin or NSAIDS as needed. Important Reminders: - If you use CPAP/BIPAP, bring the machine with you to the surgery center. - Candy, mints, and tobacco products are NOT permitted the morning of surgery. - Hearing aids, dentures and glasses may be worn the morning of surgery. - NO jewelry, body piercings, makeup, hairpins or contacts are to be worn the day of surgery. If you develop symptoms such as a fever, cold, or flu, or have other changes to your health within TWO DAYS of scheduled surgery or the morning of surgery, please contact the surgery center above. Personal Belongings: -Please have photo ID and insurance cards. -If you do not have a copy of advance directives on file with us, please bring a copy with you on the day of surgery. - Leave ALL valuables and money at home or with family members. For Outpatient Procedures: - YOU MUST HAVE A RESPONSIBLE AEROSPACE STRESS ENGINEER TAKE YOU HOME. A TRUCK CLEANER OR TECHNICAL ASSISTANCE CONSULTANT CANNOT BE MADE A RESPONSIBLE AEROSPACE STRESS ENGINEER. - We recommend that a responsible person stays with you overnight to take care of you. - You cannot stay in a hotel alone after outpatient surgery. You will not be permitted to have your surgery, if you do not have someone to take care of you. If you already have an Advance Directive, please fax a copy to [phone] or email to for it to be added to your chart. If you do not have an Advance Directive, you can find the appropriate form and more information at [email or web address]. We recommend that you complete the Advance Directive form found on the website and bring it with you the day of your surgery. It can be witnessed and scanned into your chart that day. Mary Navarrete PA-C documented in this encounter [facility] 12-06-2022 Note HNO ID: [id number] Author: Brock De La Torre MD Service: ? Author Type: Physician Type: Progress Notes Filed: 12/06/2022 2:50 PM Note Text: CC: L thumb tendon injury. HPI: Mr. Rojas is a R hand dominant 62 year old male who presents with a chief complaint of inability to extend his L thumb. He sustained a laceration to the dorsal aspect of his L thumb interphalangeal joint (IPJ) region about 2-3 weeks ago. He was initially seen at [facility], but did not get any definitive treatment. [facility] desiring treatment to attempt to restore his L thumb IPJ extension. 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 He has history of other tendon injury/tendon surgery, including R distal biceps tendon rupture/reconstruction. (+) active tobacco use. PAST MEDICAL HISTORY Diagnosis Date Acquired hallux limitus of left foot Acute NM (HCC) 08/2007 angina - bare metal stent x1 - to see Dr Ortiz 08/30 Arthritis of right hip inj helps - needs THR, 06/15/17:insurance did not approve Back pain 10/14/2015 pain management rec CPRP - do not refill percocet - 07/08/17:send to [facility] Chronic pain of toe of left foot Depression zoloft spinning couldn't get going, prozac creating action (act on neighbor) - celexa ETOH abuse Fibromyalgia 05/22/20:saw pain psychologist, used mental control to ignore pains GERD (gastroesophageal reflux disease) aciphex Hematuria 2019 saw urology in [place] Hiatal hernia History of PTCA Dr Germain HTN (hypertension) lisinopril Hyperlipidemia lipitor Lung nodule 10/16/2014 6 mm - recheck at 1 yr and 2 yrs NEGATIVE HISTORY OF No pn,tb,ca,dm Spinal stenosis 1995 accident went to PT - neck, mid back, right leg, 10/09, percocet 1/2 tid - Dr Brooks (pain management) - tried fentayl, methadone Testicular lump s/p removal, benign - testosterone - Dr Valentine Current Outpatient Medications Medication Sig Dispense Refill rosuvastatin (CRESTOR) 5 mg tablet TAKE 1 TABLET BY MOUTH AT BEDTIME 30 tablet 11 omega 9-nhj-gan-fish oil 300 mg (120 mg- 180mg)-1,000 mg cap TAKE 2 CAPSULES BY MOUTH AT BEDTIME 60 capsule 8 tiZANidine (ZANAFLEX) 4 mg tablet Take 1 tablet by mouth twice daily as needed (Headache). 60 tablet 2 VITAMIN B-2 100 mg tab Take 4 tablets by mouth once daily. 360 tablet 3 amitriptyline (ELAVIL) 50 mg tablet Take 1 tablet by mouth daily at bedtime. 90 tablet 3 semaglutide (OZEMPIC) 0.25 mg or 0.5 mg(2 mg/1.5 mL) pen Inject 0.25 mg subcutaneously one time a week. 1.5 mL 0 divalproex ER (DEPAKOTE ER) 500 mg 24 hr tablet Take 1 tablet by mouth daily at bedtime for 14 days. 14 tablet 0 verapamil SR (CALAN SR, ISOPTIN SR) 180 mg CR tablet Take 1 tablet by mouth daily at bedtime. 90 tablet 0 galcanezumab-gnlm (EMGALITY PEN) 120 mg/mL pen Inject 1 mL subcutaneously once every month. Do not shake. Start after completing 240mg loading dose. [address] (PROTONIX) 40 mg tablet TAKE 1 TABLET BY MOUTH DAILY 30 tablet 11 albuterol HFA (PROAIR HFA) 90 mcg/actuation inhaler 2 Puffs every 4 hours as needed for wheezing/shortness of breath. Take as directed 1 Each 11 naproxen (NAPROSYN) 500 mg tablet Take 1 tablet by mouth twice daily as needed (for pain). Take with food 60 tablet 5 Ascorbic Acid 1,000 mg tablet TAKE 1 TABLET BY MOUTH DAILY 90 tablet 3 VITAMIN D 25 mcg (1,000 unit) tab tablet TAKE 1 TABLET BY MOUTH DAILY 90 tablet 3 escitalopram oxalate (LEXAPRO) 20 mg tablet Take 1.5 tablets by mouth once daily. 45 tablet 11 cephALEXin (KEFLEX) 500 mg capsule Take 1 capsule by mouth three times daily. (Patient not taking: Reported on 04/16/2022) 30 capsule 1 losartan (COZAAR) 50 mg tablet TAKE 1 TABLET BY MOUTH DAILY 90 tablet 3 metoprolol succinate ER (TOPROL XL) 50 mg 24 hr tablet Take 1 tablet by mouth daily at bedtime. 90 tablet 3 Lvjky-3-BMJ-EPA-Fish Oil 1,000 mg (120 mg-180 mg) cap TAKE 2 CAPSULES BY MOUTH once DAILY AT BEDTIME 60 capsule 11 omega-3 fatty acids 1,000 mg cap Take 2 capsules by mouth once daily. At bedtime 60 capsule 1 aspirin, enteric coated (ECOTRIN LOW STRENGTH) 81 mg EC tablet Take 1 tablet by mouth once daily. 90 tablet 3 fluticasone (FLONASE) 50 mcg/actuation nasal spray use 2 (TWO) sprays IN EACH NOSTRIL DAILY AT BEDTIME 16 g 11 CPAP New set up: AutoCPAP 5-15 cm H2O, mask (pt pref), filters, heated humidity AND tubing. Lifetime supplies. SUSANNAH G47.33. 1 Each 0 testosterone cypionate (DEPO-TESTOSTERONE) 200 mg/mL injection INJECT 0.5 ml INTRAMUSCULARLY EVERY TEN days. 6 mL 1 No current facility-administered medications for this visit. ALLERGIES No Known Allergies PE: Exam of the L upper limb revealed: Healed laceration over dorsal aspect of thumb interphalangeal joint (IPJ), with moderate amount of swelling around IPJ. (+) active flexion of thumb IPJ. (-) active extension of thumb IPJ. (more content not included)... [facility] 12-06-2022 History of Present illness Narrative CC: L thumb tendon injury. HPI: Mr. Rojas is a R hand dominant 62 year old male who presents with a chief complaint of inability to extend his L thumb. He sustained a laceration to the dorsal aspect of his L thumb interphalangeal joint (IPJ) region about 2-3 weeks ago. He was initially seen at [facility], but did not get any definitive treatment. [facility] desiring treatment to attempt to restore his L thumb IPJ extension. 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 He has history of other tendon injury/tendon surgery, including R distal biceps tendon rupture/reconstruction. (+) active tobacco use. PAST MEDICAL HISTORY Diagnosis Date Acquired hallux limitus of left foot Acute NM (HCC) 08/2007 angina - bare metal stent x1 - to see Dr Ortiz 08/30 Arthritis of right hip inj helps - needs THR, 06/15/17:insurance did not approve Back pain 10/14/2015 pain management rec CPRP - do not refill percocet - 07/08/17:send to [facility] Chronic pain of toe of left foot Depression zoloft spinning couldn't get going, prozac creating action (act on neighbor) - celexa ETOH abuse Fibromyalgia 05/22/20:saw pain psychologist, used mental control to ignore pains GERD (gastroesophageal reflux disease) aciphex Hematuria 2019 saw urology in [place] Hiatal hernia History of PTCA Dr Germain HTN (hypertension) lisinopril Hyperlipidemia lipitor Lung nodule 10/16/2014 6 mm - recheck at 1 yr and 2 yrs NEGATIVE HISTORY OF No pn,tb,ca,dm Spinal stenosis 1995 accident went to PT - neck, mid back, right leg, 10/09, percocet 1/2 tid - Dr Brooks (pain management) - tried fentayl, methadone Testicular lump s/p removal, benign - testosterone - Dr Valentine Current Outpatient Medications Medication Sig Dispense Refill rosuvastatin (CRESTOR) 5 mg tablet TAKE 1 TABLET BY MOUTH AT BEDTIME 30 tablet 11 omega 2-zfj-knm-fish oil 300 mg (120 mg- 180mg)-1,000 mg cap TAKE 2 CAPSULES BY MOUTH AT BEDTIME 60 capsule 8 tiZANidine (ZANAFLEX) 4 mg tablet Take 1 tablet by mouth twice daily as needed (Headache). 60 tablet 2 VITAMIN B-2 100 mg tab Take 4 tablets by mouth once daily. 360 tablet 3 amitriptyline (ELAVIL) 50 mg tablet Take 1 tablet by mouth daily at bedtime. 90 tablet 3 semaglutide (OZEMPIC) 0.25 mg or 0.5 mg(2 mg/1.5 mL) pen Inject 0.25 mg subcutaneously one time a week. 1.5 mL 0 divalproex ER (DEPAKOTE ER) 500 mg 24 hr tablet Take 1 tablet by mouth daily at bedtime for 14 days. 14 tablet 0 verapamil SR (CALAN SR, ISOPTIN SR) 180 mg CR tablet Take 1 tablet by mouth daily at bedtime. 90 tablet 0 galcanezumab-gnlm (EMGALITY PEN) 120 mg/mL pen Inject 1 mL subcutaneously once every month. Do not shake. Start after completing 240mg loading dose. [address] (PROTONIX) 40 mg tablet TAKE 1 TABLET BY MOUTH DAILY 30 tablet 11 albuterol HFA (PROAIR HFA) 90 mcg/actuation inhaler 2 Puffs every 4 hours as needed for wheezing/shortness of breath. Take as directed 1 Each 11 naproxen (NAPROSYN) 500 mg tablet Take 1 tablet by mouth twice daily as needed (for pain). Take with food 60 tablet 5 Ascorbic Acid 1,000 mg tablet TAKE 1 TABLET BY MOUTH DAILY 90 tablet 3 VITAMIN D 25 mcg (1,000 unit) tab tablet TAKE 1 TABLET BY MOUTH DAILY 90 tablet 3 escitalopram oxalate (LEXAPRO) 20 mg tablet Take 1.5 tablets by mouth once daily. 45 tablet 11 cephALEXin (KEFLEX) 500 mg capsule Take 1 capsule by mouth three times daily. (Patient not taking: Reported on 04/16/2022) 30 capsule 1 losartan (COZAAR) 50 mg tablet TAKE 1 TABLET BY MOUTH DAILY 90 tablet 3 metoprolol succinate ER (TOPROL XL) 50 mg 24 hr tablet Take 1 tablet by mouth daily at bedtime. 90 tablet 3 Vqzkj-7-QZI-EPA-Fish Oil 1,000 mg (120 mg-180 mg) cap TAKE 2 CAPSULES BY MOUTH once DAILY AT BEDTIME 60 capsule 11 omega-3 fatty acids 1,000 mg cap Take 2 capsules by mouth once daily. At bedtime 60 capsule 1 aspirin, enteric coated (ECOTRIN LOW STRENGTH) 81 mg EC tablet Take 1 tablet by mouth once daily. 90 tablet 3 fluticasone (FLONASE) 50 mcg/actuation nasal spray use 2 (TWO) sprays IN EACH NOSTRIL DAILY AT BEDTIME 16 g 11 CPAP New set up: AutoCPAP 5-15 cm H2O, mask (pt pref), filters, heated humidity & tubing. Lifetime supplies. [facility] G47.33. 1 Each 0 testosterone cypionate (DEPO-TESTOSTERONE) 200 mg/mL injection INJECT 0.5 ml INTRAMUSCULARLY EVERY TEN days. 6 mL 1 No current facility-administered medications for this visit. ALLERGIES No Known Allergies PE: Exam of the L upper limb revealed: Healed laceration over dorsal aspect of thumb interphalangeal joint (IPJ), with moderate amount of swelling around IPJ. (+) active flexion of thumb IPJ. (-) active extension of thumb IPJ. (+) active flexion of index finger PIPJ and DIPJ. (+) active extension of index finger PIPJ and DIPJ without extension lag. RADIOLOGY: X-Rays of the L hand performed on 12/02/2022 were reviewed with the patient. X-Rays showed: No acute fracture or osseous malalignment is identified. 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 No osseous erosion. Nonspecific linear and punctate hyperdensities within the subcutaneous soft tissues along the dorsal aspect of the thumb proximal phalangeal head could potentially relate to tiny foreign bodies if the laceration was in this location. Assessment: Other specified injury of extensor muscle, fascia and tendon of left thumb at wrist and hand level, initial encounter (primary encounter diagnosis) Plan: We discussed with Mr. Rojas the diagnosis and proposed treatment options. We discussed that there likely would be a segmental extensor tendon defect due to the injury from a saw cut. Primary repair of the extensor pollicis longus may or may not be possible. We discussed the possibility of tendon transfer (using extensor indicis proprius). Patient desires to proceed with surgery. He understands the need for thumb spica splint protection after tendon transfer/extensor tendon repair for 2-3 months, and the need for hand therapy after surgery to achieve good tendon gliding. He also understands that although he will regain active extension of thumb IPJ, he likely will not be able to perform hyperextension of thumb IPJ. Consent signed in clinic. Case request submitted. 45 Minutes total visit spent face to face with patient. Greater than 50% of the time was spent for counseling and coordination of care, discussing treatment options and recommendations. Brock De La Torre MD December 06, 2022 2:36 PM documented in this encounter [facility] 12-05-2022 Miscellaneous Notes Reason for Call: Patient has complaint of dizziness and like he's going to pass out when he stands up. Patient states this is happening now. Outcome: Advised to Call EMS 911 Now. Patient verbalized understanding and is agreeable to the plan. Reason for Disposition Shock suspected (e.g., cold/pale/clammy skin, too weak to stand, low BP, rapid pulse) Protocols used: Dizziness - [id number] documented in this encounter [facility] 12-02-2022 History of Present illness Narrative José Rojas is a patient of Rosa Robertson MD. CHIEF COMPLAINT: José Rojas is a 62 year old male who presents today for follow up of Extensor tendon laceration. HISTORY OF PRESENT ILLNESS: PAIN EVALUATION 12/02/2022 1708 Pain Level: 4 Pain Location: Finger Description: Dull;Aching Duration Amount of Time: 2 Duration Units: Weeks Frequency: Intermittent Intervention/Comfort measure: Medication Interval history: José Rojas is a R hand dominant male here after lacerating the dorsal aspect of his thumb when he fell 2 weeks ago. He has been able to fully flex the thumb but unable to straighten from the DIP. Patient is unable to seek care prior to this due to the fact that he was admitted to the ICU secondary to the fall. REVIEW OF SYMPTOMS: Constitutional: Fever/chills: No Cardiovascular: Chest Pain: No Musculoskeletal: as noted in the HPI Neurologic: as noted in the HPI SOCIAL HISTORY: Tobacco user? Yes PHYSICAL EXAMINATION: Vitals: There were no vitals taken for this visit. Body Habitus:well nourished and no acute distress Orientation: Normal: Oriented to person, place and time Psych: normal Skin: Color, texture, turgor normal. No rashes or lesions Sensation: sensation to light touch is grossly normal bilaterally Specific MSK Exam Patient has full flexion of all fingers. Thumb is unable to extend past approximately 45 degrees. There is a large area of scarring with a scab in the middle across the DIPJ. There is no fluctuance or erythema. IMAGING: Final results and radiologist's interpretation, available in the [facility] health record. Images were reviewed with the patient/family members in the office today. My personal interpretation of the performed imaging is FB dorsal aspect of DIPJ L thumb CLINICAL IMPRESSION / ASSESSMENT: (S66.822A, S61.402A) Extensor tendon laceration of left hand with open wound, initial encounter (primary encounter diagnosis) PLAN: Stitches were sent out to hand surgeons for repair. It is recommended the patient schedule follow-up with a hand surgeon as soon as possible. Mariah Anderson PA-C This document has been created with the use of voice recognition technology. It may contain inaccuracies: misspellings, inaccurate syntax or word sense that escaped review. documented in this encounter [facility] 12-02-2022 History of Present illness Narrative Radiology Service Progress Note PATIENT NAME: José Rojas DATE OF SERVICE: December 02, 2022 TIME: 5:07 PM PATIENT IDENTITY VERIFICATION COMPLETED USING TWO (2) IDENTIFIERS: Name and Date of confirmed by patient verbally. FALL SCREENING: Has the patient had 2 falls in the last year or 1 fall with injury or currently using an Ambulatory Assistive Device (Walker, Cane, Wheelchair, Crutches, etc.)? No PATIENT GENDER DATA: Male PATIENT RELEVANT IMPLANT DATA REVIEWED: Not Applicable RADIOLOGY DEPARTMENT: General X-ray: Exam(s) Completed: Upper Extremity X-Ray(s): Hand, left PERIPHERAL IV DATA: Not applicable SIGNED BY: RT Zenaida(R) December 02, 2022 5:07 PM documented in this encounter [facility] 12-01-2022 History of Present illness Narrative POPULATION HEALTH NAVIGATION OUTREACH Action/FYI Diagnosis with HCC gap left: I10 - HTN (hypertension) - CAREAngelo Last Billed 02/22/2022 I25.118 - 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) - ROSA ELENA Last Billed 08/05/2021 K21.9 - GERD (gastroesophageal reflux disease) - BOLIVAR Last Billed 01/13/2022 E29.1 - Hypogonadism in male - METM Last Billed 09/25/2021 M20.5X2 - Acquired hallux limitus of left foot - SKCL Last Billed 10/24/2020 M41.20 - Scoliosis (and kyphoscoliosis), idiopathic - SKCL Last Billed 10/24/2020 F11.20 - Opioid dependence (HCC) - SUBL Last Billed 01/13/2022 Due for: Annual Wellness BP control Left VM; MyChart message sent Patient Identified by Name and : NO Outreach Outcome/Action Unable to reach patient: Left message MyChart message sent Did you use a PCP flex slot to schedule this appointment? N/A Reason for Outreach HCC or suspected condition Payer: Payor: [place]ICA[place] / Plan: [facility] MEDICAID / Product Type: Medicaid / Care Gap Reviewed:: Annual Wellness visit Controlling Blood Pressure Reminder: Reminder note to check Health Maintenance for items below Health Maintenance items due: PNEUMOCOCCAL(1 - PCV) Never done HIV SCREENING Never done BP CONTROLLED (<130/80) Never done SHINGRIX VACCINE(1 of 2) Never done COVID-19 VACCINE(3 - Pfizer series) due on 11/20/2020 DEPRESSION ASSESSMENT Never done Navigation Signature: Valery Benitez MA December 01, 2022 12:29 PM documented in this encounter [facility] 11-29-2022 History of Present illness Narrative Teaching Physician Note: I saw and evaluated the patient. I personally obtained the dela cruz and critical portions of the history and physical exam. I reviewed the resident's documentation and discussed the patient with the resident. I agree with the resident's medical decision making as documented in the resident's note. No fatty stools. Continue medications for lipid management as well as is motivated for alcohol cessation with counseling. Plan of care discussed.. Raquel Gallegos MD Images from the original note were not included. José Rojas comes to the clinic today for for follow up after recent hospitalization. Comes to the visit unaccompanied. Impression/Plan: Chronic pancreatitis Management: since the patient's condition is improving , no new/worsening symptoms were noted on encounter , the patient was advised to follow up his next scheduled appointments, continue his medication course. Low fat diet instructions were given. Alcohol use Management: Since the patient noted already having a counselor regarding his alcohol use, further follow up with his counselor was advised. Left thumb laceration Management: the laceration was assessed and no tenderness or signs of infection were noted. No orders or meds were signed during this encounter Followup Appointment: No follow-ups on file. Narrative Summary: 62 year old patient with history of hypertension, hyperlipidemia, acute NM, sleep apnea, multiple traumatic injuries and alcohol use presents for follow up visit after hospitalization due trauma, delirium tremens and alcohol induced pancreatitis. The patient states on November 18 he fell, lost his consciousness and when he regained it was feeling dizzy, nauseated, had double vision , noticed abdominal swelling and pain following which he was admitted to the ED. The patient reports he was confused, can't recall details of the encounter ,he was admitted to ICU , fluids and medications were given and the patient stabilized . After hospitalization the patient notes gradual improvement, his confusion improved, but he reports having watery diarrhea and abdominal pain during his hospital stay . He also notes having difficulty with ambulation. The patient admits his history of alcohol consumption for which he was prescribed acamprosate. Today the patient states his diarrhea has improved , although he still has pain in his hips which is attributable to his previous surgery his ambulation is significantly better compared to ICU. He is motivated to discontinue alcohol consumption and asks for dietary recommendations. Review of Systems Constitutional: Negative. Respiratory: Negative. Cardiovascular: Negative. Gastrointestinal: Positive for abdominal pain and diarrhea. Genitourinary: Negative. Musculoskeletal: Positive for back pain and neck pain. Skin: Negative. Neurological: Negative. Diagnostics List: Basic Metabolic Panel (Last 5 results in the past 365 days) Na K Cl CO2 Gap Glu BUN Cr Ca Mg PO4 11/22/22 0046 4.3 11/22/22 0046 1.8 11/22/22 0046 133 4.0 102 23 12 95 10 0.68 8.6 11/21/22 1427 132 4.0 102 19 15 115 8 0.64 8.5 11/21/22 0057 3.1 11/21/22 0057 2.0 11/21/22 0057 134 4.2 107 22 9 99 8 0.70 8.0 11/20/22 1440 134 3.9 107 22 9 72 4 0.66 8.2 11/20/22 0754 135 4.0 108 21 10 80 4 0.63 8.3 LIPIDS (Last 5 results in the past 3 years) Chol- esterol TG HDL LDL Chol / HDL LDL / HDL Non HDL 11/22/22 0046 317 11/21/22 0057 415 11/20/22 1440 473 11/20/22 0158 552 11/19/22 1553 978 Lab Results Component Value Date HBA1C 5.4 09/07/2021 HBA1C 5.2 01/13/2018 HBA1C 5.4 05/24/2017 CBC (Last 5 results in the past 365 days) WBC RBC Hgb Hct MCV RDW Plt 11/22/22 0046 9.0 3.60 11.5 34.7 96 14.9 217 11/21/22 1427 10.4 3.62 11.8 35.1 97 14.6 211 11/21/22 0057 10.6 3.39 11.1 32.7 96 14.9 182 11/20/22 0158 13.2 3.57 11.5 34.0 95 14.8 191 11/19/22 0330 16.3 4.11 13.1 38.5 94 14.4 213 Vitals Recorded in This Encounter 11/26/2022 1401 BP: 120/81 Pulse: 100 SpO2: 99 % Weight: 216 lb (98 kg) Pain Score: 8 Pain Loc: MULTIPLE SIT Physical Exam Vitals and nursing note reviewed. Constitutional: Appearance: Normal appearance. Eyes: Extraocular Movements: Extraocular movements intact. Cardiovascular: Rate and Rhythm: Regular rhythm. Tachycardia present. Heart sounds: Normal heart sounds. Pulmonary: Effort: Pulmonary effort is normal. Breath sounds: Normal breath sounds. Abdominal: Palpations: Abdomen is soft. Tenderness: There is abdominal tenderness. There is no guarding or rebound. Musculoskeletal: General: Normal range of motion. Cervical back: Normal range of motion. Neurological: General: No focal deficit present. Mental Status: He is alert and oriented to person, place, and time. Angela Hollins MD Patient was identified by name and date of . Pipertran Copeland documented in this encounter [facility] 11-26-2022 History of Present illness Narrative Images from the original note were not included. José Rojas comes to the clinic today for for follow up after recent hospitalization. Comes to the visit unaccompanied. Impression/Plan: Chronic pancreatitis Management: since the patient's condition is improving , no new/worsening symptoms were noted on encounter , the patient was advised to follow up his next scheduled appointments, continue his medication course. Low fat diet instructions were given. Alcohol use Management: Since the patient noted already having a counselor regarding his alcohol use, further follow up with his counselor was advised. Left thumb laceration Management: the laceration was assessed and no tenderness or signs of infection were noted. No orders or meds were signed during this encounter Followup Appointment: No follow-ups on file. Narrative Summary: 62 year old patient with history of hypertension, hyperlipidemia, acute NM, sleep apnea, multiple traumatic injuries and alcohol use presents for follow up visit after hospitalization due trauma, delirium tremens and alcohol induced pancreatitis. The patient states on November 18 he fell, lost his consciousness and when he regained it was feeling dizzy, nauseated, had double vision , noticed abdominal swelling and pain following which he was admitted to the ED. The patient reports he was confused, can't recall details of the encounter ,he was admitted to ICU , fluids and medications were given and the patient stabilized . After hospitalization the patient notes gradual improvement, his confusion improved, but he reports having watery diarrhea and abdominal pain during his hospital stay . He also notes having difficulty with ambulation. The patient admits his history of alcohol consumption for which he was prescribed acamprosate. Today the patient states his diarrhea has improved , although he still has pain in his hips which is attributable to his previous surgery his ambulation is significantly better compared to ICU. He is motivated to discontinue alcohol consumption and asks for dietary recommendations. Review of Systems Constitutional: Negative. Respiratory: Negative. Cardiovascular: Negative. Gastrointestinal: Positive for abdominal pain and diarrhea. Genitourinary: Negative. Musculoskeletal: Positive for back pain and neck pain. Skin: Negative. Neurological: Negative. Diagnostics List: Basic Metabolic Panel (Last 5 results in the past 365 days) Na K Cl CO2 Gap Glu BUN Cr Ca Mg PO4 11/22/22 0046 4.3 11/22/22 0046 1.8 11/22/22 0046 133 4.0 102 23 12 95 10 0.68 8.6 11/21/22 1427 132 4.0 102 19 15 115 8 0.64 8.5 11/21/22 0057 3.1 11/21/22 0057 2.0 11/21/22 005 134 4.2 107 22 9 99 8 0.70 8.0 11/20/22 1440 134 3.9 107 22 9 72 4 0.66 8.2 11/20/22 0754 135 4.0 108 21 10 80 4 0.63 8.3 LIPIDS (Last 5 results in the past 3 years) Chol- esterol TG HDL LDL Chol / HDL LDL / HDL Non HDL 11/22/22 0046 317 11/21/22 0057 415 11/20/22 1440 473 11/20/22 0158 552 11/19/22 1553 978 Lab Results Component Value Date HBA1C 5.4 09/07/2021 HBA1C 5.2 01/13/2018 HBA1C 5.4 05/24/2017 CBC (Last 5 results in the past 365 days) WBC RBC Hgb Hct MCV RDW Plt 11/22/22 0046 9.0 3.60 11.5 34.7 96 14.9 217 11/21/22 1427 10.4 3.62 11.8 35.1 97 14.6 211 11/21/22 0057 10.6 3.39 11.1 32.7 96 14.9 182 11/20/22 0158 13.2 3.57 11.5 34.0 95 14.8 191 11/19/22 0330 16.3 4.11 13.1 38.5 94 14.4 213 Vitals Recorded in This Encounter 11/26/2022 1401 BP: 120/81 Pulse: 100 SpO2: 99 % Weight: 216 lb (98 kg) Pain Score: 8 Pain Loc: MULTIPLE SIT Physical Exam Vitals and nursing note reviewed. Constitutional: Appearance: Normal appearance. Eyes: Extraocular Movements: Extraocular movements intact. Cardiovascular: Rate and Rhythm: Regular rhythm. Tachycardia present. Heart sounds: Normal heart sounds. Pulmonary: Effort: Pulmonary effort is normal. Breath sounds: Normal breath sounds. Abdominal: Palpations: Abdomen is soft. Tenderness: There is abdominal tenderness. There is no guarding or rebound. Musculoskeletal: General: Normal range of motion. Cervical back: Normal range of motion. Neurological: General: No focal deficit present. Mental Status: He is alert and oriented to person, place, and time. Angela Hollins MD Patient was identified by name and date of . Piper Copeland documented in this encounter [facility] 11-26-2022 Instructions Angela Carvalho MD - 11/26/2022 3:09 PM EDT Follow low fat diet. Take medications as prescribed. Keep follow up counselor to address alcohol use The following attachments cannot be sent through Care Everywhere.Low Cholesterol, Saturated Fat, and Trans Fat Diet (H[place]er)documented in this encounter [facility] 11-26-2022 Instructions Angela Carvalho MD - 11/26/2022 3:09 PM EDT Follow low fat diet. Take medications as prescribed. Keep follow up counselor to address alcohol use The following attachments cannot be sent through Care Everywhere.Low Cholesterol, Saturated Fat, and Trans Fat Diet (H[place] Konger)documented in this encounter [facility] 11-22-2022 Miscellaneous Notes Problem: Alcohol Withdrawal: Goal: Free from complications of withdrawal Outcome: Met Problem: Routine Care: Goal: Patient care will be managed and maintained throughout hospital stay per unit specific routine care procedure Outcome: Met Problem: Safety: Goal: Free from injury during hospitalization Outcome: Met Problem: Discharge Planning: Goal: Discharge needs of the adult patient will be met Outcome: Met Problem: VTE Prophylaxis: Goal: Will be free of DVT Outcome: Met Problem: Acute Pain: Goal: Ability to identify pain intensity on a pain scale and rate it consistently will be achieved and maintained Outcome: Met Goal: Acceptable level of pain which allows the patient to achieve functional outcome goals Outcome: Met Problem: Impaired Skin Integrity: Goal: Skin integrity will improve and/or be maintained Outcome: Met Problem: Fluid and Electrolyte Imbalance: Goal: Adequate fluid and electrolyte balance will be achieved and maintained Outcome: Met José Rojas is a 62 year old male with a PMHx of tobacco use disorder, SUSANNAH (AutoCPAP 5-15 cm H2O), alcohol/opioid use disorder, HLD, GERD, HTN, lumbar radiculopathy, OA, depression/anxiety/PTSD, fibromyalgia, CAD s/p PCI LAD in 2008 presenting on 11/18/2022 for trauma transfer from [facility] as cat 2 trauma transfer for fall from chair, where he hit his abdomen and lost consciousness. At [facility], CT concerning for pancreatic contusion. A CT abd done upon arrival to the ED at , showed fat stranding and edema suggestive of acute pancreatitis possibly induced by alcohol. Given 2L of IV LR. Other labs such as lipase and ethanol were normal. CBC was remarkable for leukocytosis. Patient had CIWAs of 14 and started on versed, then admitted to MICU for further management. Upon arrival to the MICU, patient was tachycardic, tachypneic (but 98% on RA), and hypertensive. Alert and oriented x3. Reported only abdominal pain. No headaches, nausea/vomiting, dizziness, chest pain, SOB. Denied any tremors, diaphoresis, fevers/chills. He also reported that the reason he went to the ED was due to abdominal pain and denied falling down. He reports that last drink was 2-3 days ago and he typically drinks 4-5 times per week (about 4 beers). Patient also has been smoking cigarettes for years. On reevaluation patient endorses drinking 375 mL bourbon daily throughout the whole day, wakes up feeling tremulous, which resolved when he begins drinking in the morning. Noted to have pain from bilateral hip replacements and began taking week long doses of oxy 5mg IR in the last several weeks rx by his ortho department. Declined consult to addiction med, on phenobarb taper. Treated for hypertriglyceridemia with insulin and D10, TG <500 11/20 restarted solids low/no fat diet d/c insulin and TG continued to down trend. Possible pancreatitis in setting of abdominal pain and CT findings however lipase consistently normal and location of pain abnormal, no change in pain with PO. To Do [ ] continue CIWA, phenobarb [ ] continue multimodal pain control [ ] monitor for diet tolerance [ ] trend TG s, continue statin and fibrate Problem: Discharge Planning: Goal: Discharge needs of the adult patient will be met Outcome: Not Progressing Discharge planning ongoing throughout patient's hospital stay Problem: Alcohol Withdrawal: Goal: Free from complications of withdrawal Outcome: Progressing Q4hr CIWA. Pheno taper Problem: Routine Care: Goal: Patient care will be managed and maintained throughout hospital stay per unit specific routine care procedure Outcome: Progressing All care per MICU protocol Problem: Safety: Goal: Free from injury during hospitalization Outcome: Progressing Q1hr patient rounding. Two patient identifiers used in all care Problem: VTE Prophylaxis: Goal: Will be free of DVT Outcome: Progressing SCDs ordered Problem: Acute Pain: Goal: Ability to identify pain intensity on a pain scale and rate it consistently will be achieved and maintained Outcome: Progressing Goal: Acceptable level of pain which allows the patient to achieve functional outcome goals Outcome: Progressing Appropriate pain scale used. PRN Toradol, Oxy, & scheduled Tylenol Problem: Impaired Skin Integrity: Goal: Skin integrity will improve and/or be maintained Outcome: Progressing Q2hr turn and reposition Problem: Fluid and Electrolyte Imbalance: Goal: Adequate fluid and electrolyte balance will be achieved and maintained Outcome: Progressing Daily labs. Strict I/Os Images from the original note were not included. ATTENDING NOTE (Critical Care): AC8-: Full Code Length of stay: 1 day(s) José Rojas ([id number]) is a 62 year old male admitted on 11/18/2022 for acute pancreatitis due to hypertriglyceridemia. Lipase is now normal with persistent abdominal pain. Pain is likely due to narcotics withdrawal and constipation. TG is decreasing appropriately with insulin and glucose infusion. Already on statin. Adding Lopid. Alcohol withdrawal management ongoing with PRN phenobarb and multivitamins. Gato Rodriguez MD Pulmonary, Critical Care, and Sleep Medicine Critical Care Time: 32 minutes. The patient has high probability of sudden and significant deterioration, which requires urgent interventions. I managed/supervised life supporting interventions that required frequent physician assessment. Critical care time in minutes (indicated above) of my full attention was spent on direct care for this patient. Time I spent with surrogates is included if the patient was incapable of providing information or participating in medical decision making. Teaching time and time performing procedures that I billed separately is not included. Teaching Supervision: I personally saw and evaluated the patient, and obtained the dela cruz and critical portions of the history and physical examination. I reviewed the resident's documentation and discussed the plan with them. I agree with the medical decision making as documented in the resident's note. BP 158/97 Pulse 94 Temp 98.5 F (36.9 C) (Oral) Resp 25 Ht 5' 11 (1.803 m) Wt 214 lb 11.7 oz (97.4 kg) SpO2 99% BMI 29.95 kg/m Intake/Output Summary (Last 24 hours) at 11/20/2022 1436 Last data filed at 11/20/2022 1200 Gross per 24 hour Intake 7496.91 ml Output 3800 ml Net 3696.91 ml Tmax (24 hours): 100.2 F (37.9 C) Recent Labs 11/18/22 2209 11/19/22 0330 11/19/22 0544 11/19/22 1155 11/19/22 1553 11/19/22 2158 11/20/22 0158 11/20/22 0754 NA 131* -- 130* 130* 136 133* 136 135 K 3.5 -- 3.5 4.2 3.6 5.5* 3.6 4.0 CL 97 -- 99 100 104 105 107 108 CO2 19* -- 19* 21 24 22 22 21 BUN 8 -- 6* 7* 6* 6* 5* 4* CR 0.67* -- 0.59* 0.58* 0.62* 0.68* 0.65* 0.63* GLU 108 -- 131* 75* 80 64* 65* 80 CA 8.9 -- 8.7 8.5 8.3* 8.3* 8.4 8.3* MG 1.3* -- 2.1 -- -- -- 1.9 -- PHOS -- -- 1.8* -- -- -- 2.2* -- WBC 18.7* 16.3* -- -- -- -- 13.2* -- HGB 13.8* 13.1* -- -- -- -- 11.5* -- PLT 262 213 -- -- -- -- 191 -- MCV 94 94 -- -- -- -- 95 -- PT 10.8 -- -- -- -- -- -- -- INR 0.96 -- -- -- -- -- -- -- TP 6.5 -- -- -- -- -- -- 5.3* ALBUMIN 4.0 -- -- -- -- -- -- 3.1* DBIL 0.28 -- -- -- -- -- -- 0.15 TBIL 1.5 -- -- -- -- -- -- 0.8 ALKPHOS 161 -- -- -- -- -- -- 117 ALT 46* -- -- -- -- -- -- 27 AST 69* -- -- -- -- -- -- 49* WBC/Diff Neutro% Segs% Bands% Lymphs% Monos% Eos% Basos% 11/20/22 0158 86.4 7.9 4.8 0.3 0.6 11/19/22 0330 82.3 10.6 6.4 0.1 0.6 11/18/22 2209 80.6 12.8 6.1 0.2 0.3 No results for input(s): FIO2, PH, PCO2, PO2 in the last 72 hours. Arterial Blood Gases None Current Facility-Administered Medications Medication Dose Route Frequency Last Rate Last Admin famotidine (PEPCID) tablet 20 mg Oral 2x Daily 20 mg at 11/20/22 1230 gemfibrozil (LOPID) 600 MG tablet 600 mg Oral 2x Daily AC oxyCODONE immediate release tablet 5 mg Oral Q12H PRN dicyclomine (BENTYL) 10 MG capsule 20 mg Oral 4x Daily PRN 20 mg at 11/20/22 1106 cerovite jr chew tab 1 Tablet Oral Daily 1 Tablet at 11/20/22 0900 dextrose 143 mL in lactated ringers 1,000 mL Intravenous Continuous 175 mL/hr at 11/20/22 1320 Rate Change at 11/20/22 1320 dexmedetomidine (PRECEDEX) 400 mcg in sodium chloride 0.9% 100 mL infusion premix 0.2-1.4 mcg/kg/hr Intravenous Continuous dextrose 10 % iv infusion 125 mL Intravenous PRN 999 mL/hr at 11/19/22 1800 Rate Verify at 11/19/22 1800 Or glucagon (GLUCAGEN) 1 MG/ML injection kit 1 mg Subcutaneous PRN Or dextrose (GLUTOSE) 40 % oral gel 15 g of glucose Buccal PRN 15 g of glucose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 (+3,367) Imaging: KUB 7/22: read pending, large stool burden with increased bowel gas, nonobstructive Consults: Nutrition, PT/OT Subjective: Endorses continued abdominal pain on the L and epigastrium,. Denies fevers, chills, SOB, CP, or N/V at this time. Objective: Patient Vitals for the past 24 hrs: BP Temp Temp src Pulse Resp SpO2 O2 Device 11/20/22 1100 155/96 -- -- 98 24 100 % -- 11/20/22 1000 135/95 -- -- 101 17 100 % -- 11/20/22 0915 134/86 -- -- 95 17 100 % -- 11/20/22 0800 130/100 -- -- 101 26 100 % Room air 11/20/22 0751 -- 98.5 F (36.9 C) Oral -- -- -- -- 11/20/22 0700 134/90 -- -- 103 29 99 % -- 11/20/22 0600 147/94 -- -- 107 30 99 % -- 11/20/22 0500 133/99 -- -- 115 31 99 % -- 11/20/22 0400 157/106 -- -- 110 23 98 % Room air 11/20/22 0300 140/92 99.1 F (37.3 C) Oral 105 26 98 % -- 11/20/22 0200 140/91 -- -- 108 29 97 % -- 11/20/22 0102 -- -- -- -- -- -- Room air 11/20/22 0100 132/90 -- -- 115 22 97 % -- 11/20/22 0000 162/90 -- -- 113 39 98 % Room air 11/19/22 2300 161/96 100.2 F (37.9 C) Oral 115 36 99 % -- 11/19/223 168/110 -- -- 104 21 100 % -- 11/19/222201 160/110 -- -- 110 20 100 % -- 11/19/22 2100 156/95 -- -- 101 30 99 % -- 11/19/22 2000 155/109 -- -- 106 24 99 % Room air 11/19/22 1924 -- 99.6 F (37.6 C) Oral -- -- -- -- 11/19/22 1907 149/102 -- -- 105 31 99 % -- 11/19/22 1835 141/97 -- -- 108 30 99 % -- 11/19/22 1800 -- -- -- 114 29 100 % -- 11/19/22 1717 151/106 -- -- 108 26 100 % -- 11/19/22 1700 168/107 -- -- 108 23 100 % -- 11/19/22 1600 148/88 98 F (36.7 C) Axillary 106 33 100 % Room air 11/19/22 1500 137/97 -- -- 103 20 100 % -- 11/19/22 1400 125/77 -- -- 106 28 97 % -- 11/19/22 1300 142/89 -- -- 104 23 98 % -- 11/19/22 1200 136/79 98 F (36.7 C) Axillary 101 28 100 % Room air Respiratory Support: O2 Device: Room air I/Os: Intake/Output Summary (Last 24 hours) at 11/20/2022 1140 Last data filed at 11/20/2022 1100 Gross per 24 hour Intake 8220.24 ml Output 5000 ml Net 3220.24 ml Exam: General: NAD. HEENT: EOMI. Conjunctiva clear. No scleral icterus. Heart: RRR. No murmurs or rub. Lungs: CTAB. Abdomen: mild contusion on mid epigastrium, L sided abdominal pain to palpation with guarding, more distended than yesterday with tympany. Extremities: No LE edema. Full ROM of bilateral LE hips Neuro: No focal deficits. A&Ox3 Skin: Warm & dry. Lines/Drains: Peripheral IV Access: 11/19/22 0115 20 gauge Right;Upper Arm (Active) $ Lines: $ IV Start (procedure) 11/19/22 013 Site Assessment WNL;Dressing intact 11/19/22 0500 Infusion Status Port #1 Infusing;Positive blood return 11/19/22 0500 Number of days: 0 Peripheral IV Access: 11/19/22 0115 20 gauge Left Forearm (Active) $ Lines: $ IV Start (procedure) 11/19/22 013 Site Assessment WNL;Dressing intact 11/19/22 0500 Infusion Status Port #1 Infusing;Positive blood return 11/19/22 0500 Number of days: 0 External Urinary Collection (Active) Site Assessment WNL 11/19/22 0300 Collection Type Suction cannister (medium) 11/19/22 0300 Catheter Care Performed;Catheter tube secured;Yoselin-care performed 11/19/22 0300 Change Date 11/19/22 11/19/22 0500 Change Time 0500 11/19/22 0500 Urine (ml) 400 11/19/22 0600 Number of days: 0 Labs: Basic Metabolic Panel Na K Cl CO2 Gap Glu BUN Cr Ca Mg PO4 11/20/22 0754 135 4.0 108 21 10 80 4 0.63 8.3 11/20/22 0158 136 3.6 107 22 11 65 5 0.65 8.4 11/20/22 0158 1.9 11/20/22 0158 2.2 11/19/22 2158 133 5.5 Comment: Hemolysis present 105 22 12 64 6 0.68 8.3 11/19/22 1553 136 3.6 104 24 12 80 6 0.62 8.3 11/19/22 1155 130 4.2 100 21 13 75 7 0.58 8.5 11/19/22 0544 1.8 11/19/22 0544 2.1 11/19/22 0544 130 3.5 99 19 16 131 6 0.59 8.7 11/18/229 1.3 11/18/222208 131 3.5 97 19 19 108 8 0.67 8.9 CBC (last 3 years, up to 5 values) WBC RBC Hgb Hct MCV RDW Plt 11/20/22 0158 13.2 3.57 11.5 34.0 95 14.8 191 11/19/22 0330 16.3 4.11 13.1 38.5 94 14.4 213 11/18/22 2209 18.7 4.31 13.8 40.6 94 14.4 262 Images: 11/19/2022 CT CHEST/ABD/PELVIS W/ CONTRAST Limited evaluation due to significant motion artifact. Mild hyperenhancement of the pancreatic tail with surrounding fat stranding and edema consistent with acute pancreatitis. Small volume fluid along the right anterior perirenal fascia. No laceration or pancreatic duct abnormality. Findings may represent traumatic etiology, however focal interstitial pancreatitis is not excluded. 11/19/22 CT T-SPINE/L-SPINE W/O CONTRAST No acute fracture or traumatic malalignment of the thoracic or lumbar spine. 11/19/22 XR FINGERS LEFT 3 VIEWS No acute left finger fracture or dislocation. No radiopaque foreign bodies. There is mild osteoarthritis. Left finger Current Meds: Scheduled: famotidine 20 mg 2x Daily gemfibrozil 600 mg 2x Daily AC cerovite jr 1 Tablet Daily acetaminophen 650 mg q6h methocarbamol 750 mg 4x Daily lidocaine 2 Patch Every 24 hours aspirin EC 81 mg Daily atorvastatin 40 mg Daily ferrous sulfate 325 mg Every Other Day polyethylene glycol 17 g Daily vitamin B-1 500 mg Daily Followed by [START ON 11/22/2022] vitamin B-1 250 mg Daily Followed by [START ON 11/25/2022] vitamin B-1 100 mg Daily nicotine 21 mg Daily folic acid 1 mg Daily vitamin B-12 500 mcg Daily metoprolol 50 mg Daily docusate sodium 100 mg 2x Daily esomeprazole 40 mg Daily enoxaparin 40 mg Daily escitalopram 30 mg Daily losartan 50 mg Daily PHENobarbital Sodium 65 mg Every 8 hours Followed by [START ON 11/21/2022] PHENobarbital Sodium 32.5 mg Every 8 hours Followed by [START ON 11/22/2022] PHENobarbital Sodium 32.5 mg Every 12 hours PRN: oxyCODONE 5 mg Q12H PRN dicyclomine 20 mg 4x Daily PRN dextrose iv for hypoglycemia orderable 125 mL PRN Or glucagon 1 mg PRN Or dextrose 15 g of glucose PRN Or dextrose 30 g of glucose PRN ketorolac 15 mg Q6H PRN PHENobarbital Sodium 65 mg Q6H PRN hydrALAZINE 20 mg Q6H PRN Assessment & Plan: José Rojas is a 62 year old male with medical history as above admitted for pancreatitis likely induced by hypertriglyceridemia and ETOH abuse and withdrawal. Neurologic #Alcohol withdrawal #AUD # Migraine - Ethanol <10 - CIWAs of 14 in the ED - Utox positive for opiates, oxy, hydrocodone, and benzo (after receiving versed in the ED, unknown meds at [facility]) plan: - Phenobarb taper - Thiamine, B12, and folate supplementation - Seizure precautions - Continue CIWA protocol - Thrive consult declined by patient - Addiction consult #Tobacco use disorder: - Nicotine patch #History of depression/anxiety/PTSD: #Fibromyalgia: - Continue lexapro 30mg daily - Unclear if taking amitriptyline 50mg daily (need to clarify with patient) Cardiovascular #History of HTN #History of CAD #HLD plan: - Continue home losartan 50mg daily and metoprolol xl 50mg daily - Hydralazine PRN for SBP>170 - On rosuvastatin 5mg but not on formulary. Thus will do atorvastatin 10mg daily - Also, from chart review, patient was prescribed Verapamil 180mcg on 03/29/2022 but unclear if he is still on it. Will need to ask when he is more awake and hallucinations resolve. Respiratory # no acute issues Infectious Disease #Leukocytosis: - Likely in the setting of alcohol withdrawal and hypertriglyceridemia pancreatitis - Infectious process less likely given no fevers but will get UA and blood cultures - CT chest with no consolidations plan: - Bcx negative x2 x3 days, UA negative Renal/Electrolytes #Mild Hyponatremia: Plan: - Monitor and continue IV fluids Gastrointestinal/Liver #Pancreatitis induced by hypertriglyceridemia: - Normal lipase - CT abd with findings of acute pancreatitis - Epigastric pain/tenderness - Received 2L LR in the ED - Lipid panel with triglycerides at 1,675 - Last A1c was 5 months ago at 5.4% plan: - Multivitamin supplementation - Nutrition: NPO. 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 - Nutrition: IV thiamine, 1mg folic acid daily, cerovite daily - Decreased insulin gtt 5 units/hr from 10 - Increased D5 LR 20mEq K @ 150 mL/hr to 200 m/L hr - Changed to D10 at 150mL/hr overnight - T,675, 978, 552 - KUB 11/20: large stool burden, bowel gas noted in colon - Continue Miralax 17 g daily, and colace 100mg bid for stool burden - Continue nexium 40mg daily - Start bentyl 20mg QID prn and Pepcid 20mg bid - Follow up H pylori antigen - If lipase is normal, and TG<500, DC insulin/ d gtt and start gemfibrozil 600mg bid - Pain likely constipation related - Given bentyl and GI cocktail for sx this morning Endocrine #No acute issues - Last A1c was 5 months ago at 5.4% - Will need monitoring of glucose given he is on insulin drip Heme/Onc #Iron deficiency anemia: - Iron at 35, iron sat at 13, and transferrin at 200, TIBC 280 - Treat with iron 325mg every other day Musculoskeletal # Hip replacement # OA - PT/OT - Tylenol q6, Toradol 15 mg q6 prn, robaxin, lidocaine patches, - Decrease Oxy 5mg to q12 prn from q8 prn (home med)- likely worsening his increased stool burden Feeding Clear Liquid Analgesia Tylenol, Toradol PRN, lidocaine patches, robaxin, oxy q12 prn Sedation N/A VTE ppx Lovenox HOB Eval 30 Degrees Ulcer ppx Nexium Glycemic Control Target 140-180 SBT N/A Bowel Regimen Miralax Invasive Lines N/A Drug De-Escalation N/A Dispo: Home Code Status: Full Code Emergency Contact: PATIENT: Home: FATHER: SR. ROJASDEZ home: [phone], work: EMERGENCY CONTACT #1: DEZ ROJAS (Brother) home: , work: EMERGENCY CONTACT #2: SR. ROJASDEZ (Father) home: [phone], work: This plan is preliminary until finalized by an attending physician. Jalyn Preciado DO Emergency Medicine PGY-2 Full Code NEURO: Restraints: No. Frequent Neurochecks: No. Nursing Issues: CIWAS, phenobarb taper CARDIAC IV access/Lines: 3 PIV AM labs: Yes Infusions: Insulin, D5LR with 20KCl Nursing Issues: None PULMONARY: Nursing Issues (Vent, Wean, Oxygen) : Tachynpea & SOB on exertion GI/: Archer: No. External Catheter: Yes: Diet: NPO Do medications have proper route (OG, PEG, NG, PO): Yes Nursing issues (CVVH, I&O s ) : High triglycerides. On insulin gtt SKIN: No issues PSYCHOSOCIAL: Family meeting: NA Social work or Care management needs: Yes Pain management: Scheduled tylenol and PRN Toradol Nursing concerns: None DISPOSITION: Transfer: No Discharge: No Can patient be transferred to lower level of care: No Criteria for transfer (stable H&H etc.): Triglycerides <500 & subsided withdrawal symptoms Nursing concerns: None OVERNIGHT CONCERNS: PRN medications added for increasing CIWA score NOTES REGARDING PLAN OF CARE: None BARRIERS TO PLAN OF CARE: None HVAC SALES REPRESENTATIVE RN : Narciso DAY SHIFT RN : Maryam Pt discussed in interdisciplinary team conference today. Per team, pt admitted for pancreatitis, in withdrawal from ETOH (4 beers x day x 5 days a week), requiring MICU LOC due to insulin drip. VIVIAN unknown at this time. 3:18pm addendum: 11/19/22 1854 Assessment and Discharge Planning Evaluation READMISSION LESS THAN 30 DAYS No READMISSION RISK SCORE IS Rising Risk Reason for Readmisson Risk Score DX of drug abuse INTERVIEWED Patient COGNITIVE STATUS Oriented to person, place, time and location Functional Status Ambulatory Advance Directives Not interested LIVING SITUATION Home - Someone else;Family Bedroom floor level 2 Bathroom Floor Level 1 Home Concerns No PCP VERIFIED Yes ADMISSION INSURANCE Medicaid Medicaid [facility] PRIOR TO ADMISSION No Dialysis No TENTATIVE DISCHARGE PLAN Home - Someone else READMISSION RISK SCORE SHOULD BE Remain Unchanged REASON READMISSION SCORE NEEDS ADJUSTED N/A SDOH Completed? Yes SDOH Risks Addressed - Do Not complete until all required tidwell are completed Yes ICU Assessment Referral - self- visited with pt at bedside this afternoon to assess home supports and discuss DC recs. Pt alert and oriented. 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 Pt reports trouble adjusting to having to fill his days. Pt discussed transferring time and energy into fishing rather than drinking. Hx-(José Rojas is a 62 year old male with a medical history of tobacco use disorder, SUSANNAH (AutoCPAP 5-15 cm H2O), alcohol/opioid use disorder, HLD, GERD, HTN, lumbar radiculopathy, OA, depression/anxiety/PTSD, fibromyalgia, CAD s/p PCI LAD in 2008, who was brought by EMS from [facility] after he had a fall from a chair, where he hit his abdomen and lost consciousness. At [facility], it was believed that patient had pancreatic contusion. A CT abd done upon arrival to the ED here, showed fat stranding and edema suggestive of acute pancreatitis possibly induced by alcohol. Given 2L of IV LR. Other labs such as lipase and ethanol were normal. CBC was remarkable for leukocytosis. Patient had CIWAs of 14 and started on versed, then admitted to MICU for further management. Upon arrival to the MICU, patient was tachycardic, tachypneic (but 98% on RA), and hypertensive. Alert and oriented x3. Reported only abdominal pain. No headaches, nausea/vomiting, dizziness, chest pain, SOB. Denied any tremors, diaphoresis, fevers/chills. He also reported that the reason he went to the ED was due to abdominal pain and denied falling down. He reports that last drink was 2-3 days ago and he typically drinks 4-5 times per week (about 4 beers). Patient also has been smoking cigarettes for years. ) Living Situation-Lives with his father in a multi-story home. Family/Next of Kin- Father, Dez Rojas Sr ; Brother Dez Rojas, Jr. Social Supports/Coping- family drives pt to medical appointments. Insurance/Finances-[place] Medicaid Advanced Directives-None Social Work Needs/Indicators- Pt reports no SDOH needs at this time. Pt reports he does not need ETOH resources at this time as he is in 2 programs at present. Discharge Planning- Unknown VIVIAN with recs for Home with OP therapy when ready. SW discussed DC recs and pt verbalized understanding and agreement with recs. SW will continue to follow this pt for DC planning, social concerns, and critical care support. Kavitha Marcelo, JOSE, MLSP, BAGGAGE AND MAIL AGENT Scrubbing Machine Operator - Care Coordination Department documented in this encounter [facility] 11-19-2022 History and physical note MICU ATTENDING NOTE TARYN JOSE MD - PIN [id number] I saw and evaluated the patient. I personally obtained the dela cruz and critical portions of the history and physical examination. I reviewed the resident's documentation and discussed the patient with the resident. I agree with the resident's medical decision making as documented in the resident's note. This patient has a high probability of sudden, clinically significant deterioration, which requires the highest level of physician preparedness to intervene urgently. I managed/supervised life or organ supporting interventions that required frequent physician assessment. Time I spent with family or surrogate(s) is included only if the patient was incapable of providing the necessary information or participating in medical decision making. Time devoted to teaching and to any procedures I billed separately is not included. I spent 78 critical care minutes of my full attention on this patient's management and direct patient care. 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 Additional findings and notation: José Rojas is a 62 year old male with a medical history of tobacco use disorder, SUSANNAH (AutoCPAP 5-15 cm H2O), alcohol/opioid use disorder, HLD, CAD s/p PCI LAD in 2008 who presented to [facility] after he had a fall from a chair, where he hit his abdomen and lost consciousness. At [facility], it was believed that patient had pancreatic contusion. Patient was transferred to [facility] for higher level of care. A CT abd done upon arrival to the ED here pancreatic stranding consistent with acute pancreatitis in the setting of elevated triglycerides. Given 2L of IV LR in ED. Admitted to MICU for acute pancreatitis secondary to hyperlipidemia and alcohol withdrawal. Vitals during my assessment B.P 112/77, HR 114, RR 30, SpO2 97% on room air, Temp afebrile. Data reviewed and analyzed by me Pertinent labs: CBC ~ WBC 16.3 (elevated) , Hb 13.1(stable), platelet 213 BMP ~ Glucose 131, Na 130 (low), HCO3 19, sCr 0.59 Hepatic function panel ~ mild transaminitis due to alcohol use Tox screen +ve opiates, hydrocodone, oxycodone, benzodiazepine (received versed) Urinanalysis ~ negative Lactic acid 1.7 Lipase is normal at 126 (acute on chronic pancreatitis?) Imaging: CT chest/abdomen and pelvis with contrast ~ enhancement of pancreatic tail with fat stranding and edema consistent with acute pancreatitis. 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 Seizure precautions Offered addiction medicine consult. PTSD/SACHA: Continue Escitalopram. CARDIAC: Hypertension ~ uncontrolled due to alcohol withdrawal On Hydralazine, metoprolol and losartan. FEN/GI: Acute pancreatitis secondary to hypertriglyceridemia. On insulin ggt until TG < 500. On D5LR w/ potassium chloride. On high dose statins Check triglycerides q12hr. Patient may need plasmapheresis if TG levels do not respond to insulin ID: Low suspicion for active infection Blood cultures ordered. HEME: Leucocytosis ~ reactive in the setting of acute pancreatitis. ENDO: Blood glucose 140-180 mg/dL Check blood glucose Q1hr (POCT) +) Nutrition -- NPO +) Sedation/Analgesia -- Acetaminophen and toradol PRN +) DVT/GI prophylaxis -- subcutaneous Lovenox, PPI +) Lines/Catheters --None +) Social/Goals of Care -- Brother is NOK PT/OT ordered Code Status: Full Code Taryn Jose MD Pulmonary, Critical Care and Sleep Medicine [facility] Images from the original note were not included. MICU - H&P Source of Information: patient and ED notes Reason for presentation: fall from a chair Reason for admission: Alcohol withdrawal and pancreatitis HPI José Rojas is a 62 year old male with a medical history of tobacco use disorder, SUSANNAH (AutoCPAP 5-15 cm H2O), alcohol/opioid use disorder, HLD, GERD, HTN, lumbar radiculopathy, OA, depression/anxiety/PTSD, fibromyalgia, CAD s/p PCI LAD in 2008, who was brought by EMS from [facility] after he had a fall from a chair, where he hit his abdomen and lost consciousness. At [facility], it was believed that patient had pancreatic contusion. A CT abd done upon arrival to the ED here, showed fat stranding and edema suggestive of acute pancreatitis possibly induced by alcohol. Given 2L of IV LR. Other labs such as lipase and ethanol were normal. CBC was remarkable for leukocytosis. Patient had CIWAs of 14 and started on versed, then admitted to MICU for further management. Upon arrival to the MICU, patient was tachycardic, tachypneic (but 98% on RA), and hypertensive. Alert and oriented x3. Reported only abdominal pain. No headaches, nausea/vomiting, dizziness, chest pain, SOB. Denied any tremors, diaphoresis, fevers/chills. He also reported that the reason he went to the ED was due to abdominal pain and denied falling down. He reports that last drink was 2-3 days ago and he typically drinks 4-5 times per week (about 4 beers). Patient also has been smoking cigarettes for years. Review of Systems Constitutional: Negative for chills, diaphoresis, fever, malaise/fatigue and weight loss. Respiratory: Negative for cough, sputum production, shortness of breath and wheezing. Cardiovascular: Negative for chest pain, palpitations, orthopnea and leg swelling. Gastrointestinal: Positive for abdominal pain. Negative for constipation, diarrhea, nausea and vomiting. Musculoskeletal: Negative for falls and myalgias. Skin: Negative for itching and rash. Neurological: Negative for dizziness, tingling, tremors, focal weakness, seizures, loss of consciousness, weakness and headaches. Psychiatric/Behavioral: Positive for substance abuse. Negative for depression, hallucinations and suicidal ideas. The patient is not nervous/anxious and does not have insomnia. No current facility-administered medications on file prior to encounter. Current Outpatient Medications on File Prior to Encounter Medication Sig Dispense Refill riboflavin 100 MG TABS tablet Take 4 tablets by mouth once daily. rosuvastatin (CRESTOR) 5 MG tablet Take 1 Tablet by mouth at bedtime. tizanidine (ZANAFLEX) 4 MG tablet Take 4 mg by mouth. verapamil (CALAN-SR) 180 MG 24 hour tablet Take 180 mg by mouth. escitalopram (LEXAPRO) 20 MG tablet Take 1.5 Tablets by mouth daily. fluticasone (FLONASE) 50 mcg/act nasal inhaler use 2 (TWO) sprays IN EACH NOSTRIL DAILY AT BEDTIME Galcanezumab-gnlm (Emgality) 120 MG/ML SOSY inject 2 (TWO) ml SUBCUTANEOUSLY for 1 (ONE) dose (do not shake) Galcanezumab-gnlm (Emgality) 120 MG/ML SOAJ Inject 120 mg under the skin every 30 days. losartan (COZAAR) 50 MG tablet Take 1 Tablet by mouth daily. meloxicam (MOBIC) 15 MG tablet Take 1 Tablet by mouth daily. metoprolol (TOPROL-XL) 50 mg XL tablet Take 1 Tablet by mouth. naproxen (NAPROSYN) 500 MG tablet Take 500 mg by mouth. Gower-3 Fatty Acids (Fish Oil) 1000 MG CAPS Take 2 Capsules by mouth at bedtime. pantoprazole (PROTONIX) 40 MG tablet Take 1 Tablet by mouth daily. Semaglutide, 1 MG/DOSE, 2 MG/1.5ML SOPN Inject 0.25 mg under the skin once weekly. albuterol (PROVENTIL HFA) INHALATION HFA inhaler (VENTOLIN,PROAIR,PROVENTIL) 90mcg 2 Puffs. amantadine (SYMMETREL) 100 MG capsule Amantadine Hcl Active 100 MG PO Daily September 13, 2021 12:00am amitriptyline (ELAVIL) 50 MG tablet Take 1 Tablet by mouth. Ascorbic Acid 1000 MG TABS Take 1 Tablet by mouth daily. aspirin EC 81 MG tablet Take 1 Tablet by mouth 2 times daily. Cholecalciferol (VITAMIN D3) 25 MCG (1000 UT) tabelt Take 1 Tablet by mouth daily. divalproex ER (DEPAKOTE ER) 500 MG ER tablet Take 500 mg by mouth. DOCOSAHEXAENOIC ACID ORAL TAKE 2 CAPSULES BY MOUTH once DAILY AT BEDTIME Respiratory Therapy Supplies (CareTouch 2 CPAP Hose Meat Molder) [facility] New set up: AutoCPAP 5-15 cm H2O, mask (pt pref), filters, heated humidity & tubing. Lifetime supplies. SUSANNAH G47.33. PAST MEDICAL HISTORY As stated in HPI PAST SURGICAL HISTORY There is no previous surgical history on file. FAMILY HISTORY No family history on file. ALLERGIES No Known Allergies VITAL SIGNS & PHYSICAL EXAM Patient Vitals for the past 24 hrs: BP Temp Temp src Pulse Resp SpO2 O2 Device 11/19/22 0630 154/86 -- -- 130 41 98 % -- 11/19/22 0600 156/104 -- -- 134 29 98 % -- 11/19/22 0537 154/91 -- -- 140 34 100 % -- 11/19/22 0500 160/107 -- -- 139 27 96 % -- 11/19/22 0400 156/100 99.4 F (37.4 C) Axillary 145 20 93 % Room air 11/19/22 0300 174/95 -- -- 145 26 95 % -- 11/19/22 0250 164/90 -- -- 152 22 95 % -- 11/19/22 0232 191/113 -- -- 143 30 93 % -- 11/19/22 0200 178/117 -- -- 141 32 96 % -- 11/19/22 0145 180/100 -- -- 141 37 97 % -- 11/19/22 0140 -- -- -- 145 29 97 % -- 11/19/22 0130 182/114 -- -- 142 34 96 % -- 11/19/22 0116 162/102 -- -- 143 32 95 % -- 11/19/22 0110 183/113 99.2 F (37.3 C) Oral 143 31 96 % Room air 11/18/22 2341 148/86 -- -- (!) 152 (!) 27 97 % -- 11/18/222148 -- -- -- (!) 151 (!) 34 95 % -- 11/18/222147 142/84 -- -- (!) 151 (!) 24 97 % -- 11/18/222146 -- -- -- (!) 152 (!) 33 96 % -- 11/18/222144 -- -- -- (!) 154 (!) 21 97 % -- 11/18/222139 112/68 -- -- (!) 155 (!) 25 97 % -- 11/18/222138 -- 98.3 F (36.8 C) -- -- -- -- -- 11/18/222138 -- -- -- (!) 156 (!) 23 97 % -- 11/18/222137 -- -- -- (!) 156 (!) 21 97 % -- 11/18/222136 -- -- -- (!) 158 18 98 % -- 11/18/222135 -- -- -- (!) 157 (!) 21 98 % -- 11/18/222134 142/85 -- -- (!) 156 16 98 % -- 11/18/222133 -- -- -- (!) 158 18 98 % -- 11/18/222132 -- -- -- (!) 154 16 98 % -- 11/18/222131 -- -- -- (!) 158 16 98 % -- 11/18/222130 -- -- -- (!) 157 16 98 % -- Vital sign ranges over the past 24 hours (retrieved 11/19/2022 at 6:36 AM): Tmax (24 hours): 99.4 F (37.4 C) Pulse Av.6 Min: 130 Max: 158 Systolic (24hrs), Av , Min:112 , Max:191 Diastolic (24hrs), Av, Min:68, Max:117 MAP (mmHg) Av.3 mmHg Min: 80 mmHg Max: 134 mmHg Resp Av Min: 16 Max: 41 SpO2 Av.7 % Min: 93 % Max: 100 % Admission Weight Weight: 214 lb 11.7 oz (97.4 kg) Today's Weight Weight: 214 lb 11.7 oz (97.4 kg) BMI 29.95 Intake/Output Summary (Last 24 hours) at 11/19/2022 0636 Last data filed at 11/19/2022 0600 Gross per 24 hour Intake 3099.75 ml Output 700 ml Net 2399.75 ml Physical Exam: General: patient is alert and oriented. Mild tremors observed b/l. Looks tired and frequently closes his eyes. HEENT: head atraumatic Eyes: sclera anicteric Cardiovascular: tachycardic, no M/R/G Lungs: CTAB, normal effort, good air movement Abdominal: tenderness around epigastric and RUQ MSK: No tenderness, no edema, peripheral pulses 2+ and equal Skin: warm and dry, no erythema or rashes Neuro: no focal deficits, sensation intact. Tremors on upper extremities b/l. Strength normal in all extremities. Pupils equally reactive to light. Patient is hallucinating; he told me to drink some milk while holding nothing on this hands but pretending he had a glass. Lines (including peripheral venous, central venous, arterial): Peripheral IV Access: 11/18/222134 20 gauge Left Hand Present on Arrival to Hospital (Active) Number of days: 1 Peripheral IV Access: 11/18/222138 18 gauge Right Antecubital (Active) Number of days: 1 LAB RESULTS CBC/PT/INR WBC RBC Hgb Hct MCV RDW Plt PT aPTT INR 11/19/22 0330 16.3 4.11 13.1 38.5 94 14.4 213 11/18/222208 0.96 11/18/222208 27 11/18/222208 18.7 4.31 13.8 40.6 94 14.4 262 Basic Metabolic Panel Na K Cl CO2 Gap Glu BUN Cr Ca Mg PO4 11/19/22 0544 130 3.5 99 19 16 131 6 0.59 8.7 11/18/222208 1.3 11/18/222208 131 3.5 97 19 19 108 8 0.67 8.9 Hepatic/Biliary/Pancreas T Prot Albumin D Bili T Bili Alk Phos ALT AST Amylase Lipase 11/18/222208 6.5 4.0 0.28 1.5 161 46 69 11/18/22220[address] CHEST/ABD/PELVIS W/ CONTRAST FINDINGS: Limited evaluation of due to significant motion artifact. Cardiovasculature: Unremarkable Mediastinum/Pericardium: Unremarkable Pleura: Unremarkable Central Airways: Widely patent Lungs: Right apical groundglass opacities, likely representing atelectasis or scarring. No focal consolidation. Nodules: No nodules are present that require follow up. Lymph Nodes: No thoracic lymphadenopathy is evident. Hepatobiliary: Subcentimeter hypodensity in the left hepatic lobe, too small to characterize, likely representing a hepatic cyst/nodule. No intra or extrahepatic biliary dilation. Pancreas: Fat stranding and edema surrounding the mildly hyperenhancing pancreatic tail with small volume fluid layering along the posterior spleen and left anterior perirenal fascia. The pancreatic duct is within normal limits. Spleen: Unremarkable Adrenal Glands: Unremarkable Kidneys, ureters, and bladder: Subcentimeter bilateral renal cortical hypodensities are too small to characterize, likely represent renal cysts. Mild generalized perinephric fat stranding, nonspecific. No calculi or hydroureteronephrosis. Abdominal and pelvic vasculature: Mild atherosclerotic wall calcifications are present without aneurysm. GI tract: No evidence of obstruction. The appendix is not visualized. Peritoneum and retroperitoneum: No free fluid or free air. Lymph Nodes: No lymphadenopathy. Prostate and seminal vesicles: Unremarkable Visualized musculoskeletal structures: No acute fracture. Remote left posterior rib fracture deformity. No destructive osseous lesion. Bilateral total hip arthroplasties result in streak artifact through the lower pelvis. IMPRESSION: 1. Limited evaluation due to significant motion artifact. Mild hyperenhancement of the pancreatic tail with surrounding fat stranding and edema consistent with acute pancreatitis. Small volume fluid along the right anterior perirenal fascia. No laceration or pancreatic duct abnormality. Findings may represent traumatic etiology, however focal interstitial pancreatitis is not excluded. XR FINGERS LEFT 3 VIEWS IMPRESSION: No acute left finger fracture or dislocation. No radiopaque foreign bodies. There is mild osteoarthritis. Left finger CT T-SPINE/L-SPINE W/O CONTRAST FINDINGS: Vertebrae: No acute fracture or traumatic malalignment. No aggressive osseous lesions. Mild multilevel spondylosis without critical spinal canal stenosis. Visible sacrum and pelvis: No acute abnormality. IMPRESSION: No acute fracture or traumatic malalignment of the thoracic or lumbar spine. CURRENT MEDICATIONS Scheduled Meds polyethylene glycol 17 g Daily vitamin B-1 500 mg Daily Followed by [START ON 11/22/2022] vitamin B-1 250 mg Daily Followed by [START ON 11/25/2022] vitamin B-1 100 mg Daily nicotine 21 mg Daily folic acid 1 mg Daily vitamin B-12 500 mcg Daily metoprolol 50 mg Daily docusate sodium 100 mg 2x Daily esomeprazole 40 mg Daily enoxaparin 40 mg Daily escitalopram 30 mg Daily losartan 50 mg Daily atorvastatin 10 mg Daily aspirin EC 81 mg 2x Daily PHENobarbital Sodium 97.5 mg Every 8 hours Followed by [START ON 11/20/2022] PHENobarbital Sodium 65 mg Every 8 hours Followed by [START ON 11/21/2022] PHENobarbital Sodium 32.5 mg Every 8 hours Followed by [START ON 11/22/2022] PHENobarbital Sodium 32.5 mg Every 12 hours IV Meds dexmedetomidine (PRECEDEX) IV infusion orderable 0.6 mcg/kg/hr (11/19/22 0602) lactated ringers 200 mL/hr at 11/19/22 0620 PRN Meds acetaminophen 650 mg Q4H PRN diazePAM 10 mg Q2H PRN hydrALAZINE 20 mg Q6H PRN CONSULTS None ASSESSMENT / PLAN José Rojas is a 62 year old male with medical history as above admitted for alcohol withdrawals with CIWA of 14 and acute pancreatitis induced by hypertriglyceridemia and in the setting of AUD. Neurologic #Alcohol withdrawal #AUD - Ethanol <10 - CIWAs of 14 in the ED - Utox positive for opiates, oxy, hydrocodone, and benzo (after receiving versed in the ED) plan: - Phenobarb taper - Thiamine, B12, and folate supplementation - Seizure precautions - Continue CIWA protocol - Thrive consult after hallucinations resolve #Tobacco use disorder: - Nicotine patch #History of depression/anxiety/PTSD: #Fibromyalgia: - Continue lexapro 30mg daily - Unclear if taking amitriptyline 50mg daily (need to clarify with patient) Cardiovascular #History of HTN #History of CAD #HLD plan: - Continue home losartan 50mg daily and metoprolol xl 50mg daily - Hydralazine PRN for SBP>170 - On rosuvastatin 5mg but not on formulary. Thus will do atorvastatin 10mg daily - Also, from chart review, patient was prescribed Verapamil 180mcg on 03/29/2022 but unclear if he is still on it. Will need to ask when he is more awake and hallucinations resolve. Pulmonary #No acute issues Infectious disease #Leukocytosis: - Likely in the setting of alcohol withdrawal and hypertriglyceridemia pancreatitis - Infectious process less likely given no fevers but will get UA and blood cultures - CT chest with no consolidations plan: - F/u UA and blood cultures Renal/Genitourinary #Mild Hyponatremia: Plan: - Monitor and continue IV fluids Gastrointestinal #Pancreatitis induced by hypertriglyceridemia: - Normal lipase - CT abd with findings of acute pancreatitis - Epigastric pain/tenderness - Received 2L LR in the ED - Lipid panel with triglycerides at 1,675 - Last A1c was 5 months ago at 5.4% plan: - Started on insulin 10 units/hr - IV fluids with D5/LR with 20mEq K - Multivitamin supplementation - Nutrition: NPO. 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 Could not find hx of seizures) - Semaglutide (possibly for weight loss since no evidence of diabetes) - Albuterol (did not find any hx of asthma on chart review) - Amantadine 100mg daily F (nutrition) - NPO ; IV fluids: LR A (analgesia) - Tylenol, phenobarb S (sedation) - Precedex T (DVT ppx) - Lovenox H (HOB elevation) - 30 degrees U (ulcer ppx) - Nexium G (glycemic control) - insulin drip for triglyceride-induced pancreatitis S (Spont Breathing Trial) - N/A B (bowel regimen) - Miralax, docusate I (indwelling archer) - Not indicated D (de-escalate abx) - N/A Code Status: Full Code Disposition: TBD Outpatient follow-up: PCP, THRIVE/Addiction medicine? Emergency contact(s): PATIENT: Home: FATHER: DEZ CAMPOVERDE home: [phone], work: EMERGENCY CONTACT #1: DEZ MAYEN (Brother) home: , work: EMERGENCY CONTACT #2: SR. ROJASDEZ (Father) home: [phone], work: Plan preliminary until finalized by the attending physician. Michela Anguiano MD PGY-2 Pager: [phone] Images from the original note were not included. [facility] Department of Surgery Division of Trauma Surgery, Acute Care Surgery, Critical Care, and [place] TRAUMA SURGERY HISTORY AND PHYSICAL José Rojas [phone] BASIC INJURY INFORMATION: Level of activation: Category 2 Trauma Mode of transport: Ambulance: EMS Mechanism of injury: Fall from height or stairs Complicating features: Not applicable Protective measures: Not applicable Date of Injury: 11/17/2022 Time of Injury: Unclear Patient origin: Transfer from outside facility HISTORY OF PRESENT INJURY: José Rojas is a 62 year old male brought in by EMS following a fall, patient was standing on top of two chairs and slipped, he crushed one chair and landed with the other hitting his mid abdomen. He denies LOC and hitting his head. Patient came in with a pancreatic contusion. Patient endorses alcohol use 4xs a week and says he drinks about 4 beers. Patient was hypertensive on the ride over and was given 20 hydralazine, 2.5 dilaudid, TDAP, 12.5 phenergan, and 2 ativan. Loss of consciousness: No Initial interventions: None Hemodynamic status in ED: Tachycardic (>100 bpm) PRIMARY SURVEY: Airway: Intact Breathing: Normal Breath Sounds: Breath sounds equal bilaterally. Circulation: Pulses: Normal Skin: Normal skin color, texture, and turgor. No rashes or lesions. Disability: Pupils: PERRL GCS: Best Eyes: 4 Best Verbal: 5 Best Motor: 6 Total: 15 SECONDARY SURVEY: BP 148/86 Pulse (!) 152 Temp 98.3 F (36.8 C) Resp (!) 27 SpO2 97% Neurologic: Alert and oriented, appropriate, moves all extremities. Strength symmetrical, no sensory deficits. HEENT: Head: No lacerations, bone step-offs, or abrasions; midface stable to palpation Eyes: PERRLA, conjunctiva/corneas without lesions. and EOM intact, corrective lenses removed. Ears: No hemotympanum Nose: Septum midline, no crepitus with motion. Throat: Oral cavity without trauma. Neck: No midline tenderness, lacerations, or wounds Chest: No crepitus or pain with palpation; no abrasions or contusions; no gross deformities Pulmonary: Breath sounds clear, symmetrical; no wheezes, rales, or consolidation Cardiovascular: Pulses: Bilateral radial, femoral, DP and PT pulses are normal. Abdomen: Tender when palpating diffusely tender, soft, distended, ecchymosis on the epigastric region Rectal: Not performed. Pelvis/Perineum: Pelvis is stable to palpation and Tender upon palpation of Left pelvis Musculoskeletal: Back/Spine: No step-off or deformity noted and Tender upon palpation of thoracolumbar spine Extremities: Left UPPER extremity abnormality: abrasion and ecchymosis on medial elbow, heled 1cm laceration on the dorsal thumb and Left LOWER extremity abnormality: tender to palpation of the L hip Additional exam findings: None PAST MEDICAL HISTORY: Back pain, bicep muscle tear, concussion, HTN, HLD, TBI PAST SURGICAL HISTORY: Right shoulder surgery, Left and Right Hip replacement 2022 PRE-ADMISSION MEDICATIONS: Atorvastatin 80mg, lisinopril 2.5mg, aspirin 81mg, citalopram 40mg, metoprolol 50mg, pantoprazole 40mg, pramipexole 0.125mg, rabeprazole 20mg, amantadine 100mg, amitryptiline 50mg, escitalopram 20mg Anti-platelet use: No Anti-coagulant use: No ALLERGIES: NKDA SOCIAL HISTORY: Patient endorses drinking 4xs a week, 4 beers Patient denies drug use Living status: Unknown Primary language: Hong Konger Functional status: Unknown Impairments: Unknown Assistive Devices Used: Unknown FAMILY HISTORY: The patient's family history is non-contributory to this acute trauma. REVIEW OF SYSTEMS: Constitutional: Negative Eyes: Negative Ears/Nose/Mouth/Throat: Negative Respiratory: Negative Cardiovascular: Negative Gastrointestinal: Positive Genitourinary: Negative Musculoskeletal: Positive Neurologic: Negative Psychiatric: Negative Skin/Breast: Negative Endocrine: Negative Rheumatologic: Negative Allergic/Immunologic: Negative Significant positives: Patient endorsed back pain, and abdominal pain BASIC LABS Results for orders placed or performed during the hospital encounter of 11/18/22 CT CHEST/ABD/PELVIS W/ CONTRAST Result Value Ref Range CTDI VOL 18.2 (mGy) PHANTOM TYPE IEC Body Dosimetry Phantom CT DLP 1362.2 (mGy.cm) CT Series Entire body ETHANOL, SERUM Result Value Ref Range Ethanol <10 None Detected mg/dL PARTIAL THROMBOPLASTIN TIME Result Value Ref Range aPTT 27 25 - 37 sec BASIC METABOLIC PANEL Result Value Ref Range Glucose 108 80 - 116 mg/dL Sodium 131 (L) 135 - 148 mmol/L Potassium 3.5 3.3 - 5.3 mmol/L Carbon Dioxide 19 (L) 21 - 30 mmol/L Chloride 97 97 - 111 mmol/L Blood Urea Nitrogen 8 8 - 22 mg/dL Creatinine 0.67 (L) 0.80 - 1.30 mg/dL Calcium 8.9 8.4 - 10.4 mg/dL Anion Gap 19 10 - 20 Estimated GFR (CKD-EPI) 107 >=60 mL/min/1.73sqm PROTHROMBIN TIME AND INR Result Value Ref Range Protime 10.8 9.7 - 12.9 sec INR 0.96 0.90 - 1.10 TYPE AND SCREEN Result Value Ref Range ABO Rh Type O Positive Ab Screen Interp Negative ABO Rh/Marian/TXRX History No Previous Results LACTIC ACID Result Value Ref Range Lactate 2.6 (H) 0.5 - 2.0 mmol/L LIPASE Result Value Ref Range Lipase 126 <128 IU/L MAGNESIUM Result Value Ref Range Magnesium 1.3 (L) 1.6 - 2.8 mg/dL HEPATIC FUNCTION PANEL Result Value Ref Range Albumin 4.0 3.4 - 5.1 g/dL Bilirubin, Direct 0.28 0.10 - 0.30 mg/dL Bilirubin, Total 1.5 0.1 - 1.5 mg/dL Alkaline Phosphatase 161 40 - 200 IU/L ALT (SGPT) 46 (H) 7 - 40 IU/L AST (SGOT) 69 (H) 7 - 40 IU/L Protein, Total 6.5 5.7 - 8.1 g/dL ABO RH TYPE Result Value Ref Range ABO Rh Type O Positive ABO Rh/Marian/TXRX History O Positive CBC WITH DIFFERENTIAL Result Value Ref Range WBC 18.7 (H) 4.5 - 11.5 K/uL RBC 4.31 (L) 4.50 - 5.90 M/uL Hemoglobin 13.8 (L) 13.9 - 16.3 g/dL Hematocrit 40.6 (L) 41.0 - 53.0 % MCV 94 80 - 100 fL MCH 32.0 26.0 - 34.0 pg MCHC 33.9 32.0 - 35.9 g/dL Platelet 262 150 - 400 K/uL RDW-CV 14.4 11.5 - 14.5 % MPV 7.1 (L) 7.5 - 11.2 fL Neutrophils 80.6 (H) 31.0 - 76.0 % Neutrophil # 15.11 (H) 1.50 - 8.00 K/uL Lymphocytes 12.8 (L) 24.0 - 44.0 % Lymphocytes # 2.40 1.00 - 4.80 K/uL Monocytes 6.1 2.0 - 11.0 % Monocyte # 1.15 (H) 0.20 - 1.00 K/uL Eosinophil 0.2 0.1 - 4.0 % Eosinophil # 0.04 0.00 - 0.70 K/uL Basophils 0.3 <=1.9 % Basophil # 0.06 0.00 - 0.20 K/uL MDW RADIOLOGY: OSH CT CHEST: IMPRESSION: Minor bilateral parenchymal changes, fatty liver, hepatic and renal cysts, suspiscious for pancreatitis, correlation with amylase and lipase CXR: IMPRESSION: No acute findings CT CERVICAL SPINE: IMPRESSION: No acute findings CT HEAD: IMPRESSION: Age related changes [facility]: CT T/L Spine IMPRESSION: No acute fracture or traumatic malalignment of the thoracic or lumbar spine. CT C/A/P W/CONTRAST IMPRESSION: 1. Limited evaluation due to significant motion artifact. Mild hyperenhancement of the pancreatic tail with surrounding fat stranding and edema consistent with acute pancreatitis. Small volume fluid along the right anterior perirenal fascia. No laceration or pancreatic duct abnormality. Findings may represent traumatic etiology, however focal interstitial pancreatitis is not excluded. XR Left Fingers: IMPRESSION: No acute left finger fracture or dislocation. No radiopaque foreign bodies. There is mild osteoarthritis. ASSESSMENT: José Rojas is a 62 year old male who presented as a transfer from OSH after fall from standing. Trauma workup revealed no acute traumatic injuries. INJURIES: Acute pancreatitis, likely not traumatic but more likely related to EtOH consumption based on regular alcohol consumption and reported withdrawal symptoms. PLAN: - No indication for acute trauma surgery intervention. - Trauma team to sign off. - Please feel free to reach out to trauma surgery team with any questions or concerns. Tertiary: Completed no new imaging indicated Wound Care Instructions: No wound care needed Antibiotics: No antibiotics indicated at discharge Final ED disposition: MICU Patient discussed with Attending Trauma Surgeon, Dr. Gil. Kathy Drake PA-C Does patient have a traumatic brain injury? NO Associated attestation - Jack Gil MD - 11/19/2022 2:12 AM EDT Teaching Physician Note: I saw and evaluated the patient. I personally obtained the dela cruz and critical portions of the history and physical exam. I reviewed the resident's documentation and discussed the patient with the resident. I agree with the resident's medical decision making as documented in the resident's note, with the following addendum(s): - Imaging and clinical history not consistent with isolated blunt pancreatic injury. Patient with hx of EtOH abuse, currently withdrawing. No indication for trauma service admission. Dispo per ED. Jack Gil MD Division of Trauma, Critical Care, Belle, and Emergency General Surgery Department of Surgery [facility] documented in this encounter [facility] 11-18-2022 Emergency department Note ED RESIDENT CONTINUATION OF CARE NOTE José Rojas was signed out to me at 2358. Briefly, he presented to the ED for trauma transfer for pancreatitis. Patient noted to have history of alcoholic pancreatitis and presents and severe alcohol withdrawal. Trauma imaging negative. Patient started on Versed drip at this time. Admitted to MICU by prior resident. Signout note reviewed. Significant Physical Exam findings: tachycardia, AMS Diagnostics were reviewed. Dela Cruz findings: no traumatic injuries Clinical Course: ED Course as of 11/19/22 0813 Yesi Nov 18, 2022 2147 CIWA 14 prior to treatment. Patient received 2 of ativan prior to arrival [PD] 2305 Leukocytosis present. NO signs of anemia [PD] 2305 Mild elevation in ALT and AST [PD] ED Course User Index [PD] Cayetano Ruano MD Medical Decision Making: At the time of sign-out, the patient was admitted to the medical ICU. I evaluated the patient and found him to be in critical condition with sustained sinus tachycardia and altered mental status likely in the setting of alcohol withdrawal. Patient given 2 mg IV Versed and was started on Versed drip at 5 milligrams/hour. Patient transferred to the medical ICU in critical condition. Plan: Admit IMPRESSION AND DISPOSITION Clinical Impression Diagnosis Comment Delirium tremens (HCC) [F10.931] Alcohol-induced acute pancreatitis, unspecified complication status [K85.20] This note was created with the assistance of speech recognition software. Bruno Verma MD Prehospital Medications: 20 hydralazine 2.5 dilaudid TDAP 12.5 phenergan 2 ativan 62M was standing on a chair and fell off of it. -loc Tx from [facility] Images from the original note were not included. HISTORY OF PRESENT ILLNESS 11/18/2022, 9:25 PM. Category: 2 The patient was brought to the ED by EMS. The history is provided by Patient and EMS. José Rojas is a 62 year old male transfer from [facility] brought to the ED s/p fall from chair; + LOC. Patient states he was going to sit back in a chair, missed and landed on the ground on his side. Patient denies light headedness, dizziness, shortness of breath, or chest pain prior to fall. No abdominal pain prior to fall. Taken to [facility] where he was found to have a pancreatic contusion. Denies history of pancreatitis. VSS en route to [facility] ED. Not on thinners. + ETOH X 4 times per week (4 beers). When reviewing his HP at [facility], it states the patient landed abdomen first on a chair as he was falling. When re-interviewed, patient was unsure if his chair was even a chair or if it was just a box. He stated he hit the side of his chest and went down to the ground but still denies LoC. The patient currently complains of abdominal pain, distension, back pain, scattered wounds. The patient denies hematuria, incontinence, numbness, and weakness. The patient's last tetanus vaccine was unknown. Pre hospital information: [facility] - imaging . - REVIEW OF SYSTEMS ----- Review of Systems Constitutional: Negative for chills and fever. Eyes: Negative for visual disturbance. Respiratory: Negative for shortness of breath. Cardiovascular: Negative for chest pain. Gastrointestinal: Positive for abdominal distention and abdominal pain. Negative for nausea and vomiting. Musculoskeletal: Positive for back pain. Skin: Positive for wound. Allergic/Immunologic: Negative. Neurological: Negative for speech difficulty. Psychiatric/Behavioral: Negative for confusion. All other systems reviewed and are negative. ----- PAST HISTORY Past Medical History: No past medical history on file. Past Surgical History: No past surgical history on file. Social History: Tobacco Use: denies Alcohol Use: 4 X per week (4 beers) Drug use: denies Family History: No family history on file. The patient's home medications have been reviewed. Allergies: Patient has no allergy information on record. ----- PHYSICAL EXAM -------- Vitals Recorded in This Encounter 11/18/[id number] BP: -- -- 142/84 -- 148/86 Pulse: 154 152 151 151 152 Resp: 21 33 24 34 27 SpO2: 97 % 96 % 97 % 95 % 97 % Primary Survey Airway: Intact and Talking Breathing: Spontaneous, Bilateral breath sounds, and Not labored Circulation: Palpable bilateral femorals, Palpable bilateral radial, Palpable bilateral DP, and Palpable bilateral PT Spine precautions: WNL Total Anisha Coma Scale: 15 Eyes: eyes open = 4 Verbal: alert and oriented = 5 Motor: obeys commands = 6 Secondary Survey Constitutional: Alert, No acute distress, Oriented times 3, Appropriate, and Non-toxic appearing Head: Atraumatic. No cephalohematoma. Midface is stable. No Raccoon eyes. No Seth's sign. Eyes: PERRL. Pupils are 2 mm bilaterally. EOMI. No conjunctival injection. Ears: No hemotympanum. Nose: No nasal deformity. No septal hematoma. Mouth/Throat: Airway intact. No malocclusion. No dental injury. Neck: Trachea midline. No cervical midline bony tenderness, deformities, or step-offs. Cardiovascular: Normal rate. Regular rhythm. Heart sounds normal. Peripheral pulses are 2+ in all extremities. Pulmonary/Chest: Lungs are clear bilaterally. No decreased breath sounds. No external evidence of trauma to the chest. Chest wall is stable and non-tender. No crepitus. No flail segment. No asymmetric rise. Abdominal: Distension. Soft. Tenderness to palpation and ecchymosis to the epigastric region. No external evidence of abdominal trauma. Back: T-spine tenderness. No L-spine TTP. No deformities or step-offs of the thoracic or lumbar spine. Extremities: Pelvis stable to compression. Left pelvic TTP. RUE: No deformities. Chronic pain with ROM. There is no bony tenderness. LUE: 1 cm laceration left thumb. Bruising inner left elbow, medial side. Full ROM. There is no bony tenderness. RLE: No deformities. Full ROM. There is no bony tenderness. LLE: No deformities. Full ROM. There is left hip tenderness. Neurological: GCS score is 15. Strength is 5/5 in upper and lower extremities bilaterally. Distal sensation grossly intact. Alert normally oriented Moves all 4 extremities symmetrically and equally to command Sensation intact. Patient has tremors with his arms extended. Psychiatric: Normal affect. ED COURSE IN [place] Time: 9:31 PM. The initial vital signs are: BP 149/103, HR 159, SpO2 97, RR 15 9:42 PM. BP: 112/68. HR: 155. SpO2: 98. RR 19. Consultations: Trauma is at bedside and assisted with evaluation and formulation of plan. -------- ED COURSE ED Medications: Medications LORazepam (ATIVAN) 2 MG/ML injection (has no administration in time range) midazolam (VERSED) 50-0.9 MG/50ML-% in 0.9% NaCl 50 mL iv infusion (5 mg/hr Intravenous IV New Bag 11/19/2217) lactated ringers iv bolus (0 mL Intravenous IV Stop 11/18/222324) LORazepam (ATIVAN) 2 MG/ML injection (2 mg Intravenous Push Given 11/18/222147) LORazepam (ATIVAN) 2 MG/ML injection (2 mg Intravenous Push Given 11/18/222241) iohexol (OMNIPAQUE) 350 MG/ML injection (100 mL Intravenous Push Bolus given 11/18/222321) lactated ringers iv bolus (1,000 mL Intravenous IV New Bag 11/19/2235) midazolam (VERSED) 2 MG/2ML injection 2 mg (2 mg Intravenous Push Given 11/19/220) ED Course as of 11/19/22 010 [facility] Nov 18, 20222022 CIWA 14 prior to treatment. Patient received 2 of ativan prior to arrival [PD] 2305 Leukocytosis present. NO signs of anemia [PD] 2305 Mild elevation in ALT and AST [PD] ED Course User Index [PD] Cayetano Ruano MD MEDICAL DECISION MAKING Vital Signs: Reviewed the patient s vital signs. Nursing Notes: Reviewed and utilized the nursing notes. Digital Media Buyer: not needed - patient preferred language is [place]er. Additional Medical Decision Making: José Rojas 62 year old with past medical history as noted above presenting to the emergency department for pancreatitis. Patient's physical and history mentioned above warranted labs and imaging. Please see ED course for time stamped work up of patient. Patient was informed of findings. Most likely diagnosis is pancreatitis from alcohol abuse and delirium tremens. Patient's history on his fall was switched multiple times. Patient's abdominal exam showed some old bruising in the epigastric region which could suggest an old traumatic injury. Patient admitted to history of heaving drinking and had an elevated CIWA on arrival. Patient pancreatitis could be multifactorial but most likely from alcohol use in this setting. Patient's mental status started to deteroiate while in the ED. On multiple evals, patient remained tachy at 150 despite fluids and benzos. Patient did not report any new symptoms but became Aox1. Patient stated he was in an office building and was unsure of the year. Patient was started on a versed drip and admitted to the MICU for DT. I have discussed the case with MICU team, it was decided that admission is reasonable. Patient was admitted to MICU for further evaluation and work up. Report was called and they accepted patient. Patient was agreeable with this plan. Patient was hemodynamically stable under my care at time of admit. IMPRESSION AND DISPOSITION IMPRESSION Clinical Impression Diagnosis Comment Delirium tremens ([facility]) [F10.831] Alcohol-induced acute pancreatitis, unspecified complication status [K85.20] ---- COUNSELING ED Prescriptions: New Prescriptions No medications on file --- SCRIBE ATTESTATION -- 11/19/2022, 1:08 AM. This note is prepared by Cayetano Ruano MD, acting as Scribe for Cayetano Mcintosh. All medical record entries made by the Scribe were at my direction and personally dictated by me. I have reviewed the record and confirm that the note above accurately reflects all work, treatment, procedures, and medical decision making performed by me. Cayetano Mcintosh. Associated attestation - Cristal Manuel MD - 11/21/2022 3:43 PM EDT ATTENDING NOTE I was present with the resident during the history and exam and during the obtaining of the dela cruz and critical portions of the history and exam. I reviewed the resident's documentation and discussed the case with the resident and agree with the resident's medical decision making as documented in the residents note. Agree, report of pancreatic contusion from fall, however CT imaging reviewed from OSH, read specifically states no acute traumatic injury. CT personally felt to be consistent with pancreatitis. Spoke with Dr. Gil, trauma attending, does not feel this is a primarily traumatic. Pt. Does have some epigastric tenderness, not remarkable. Is tachycardic, tremulous, mildly hypertensive with CIWA 9-12 in the trauma bay on arrival. Concern for ETOH WD. Despite bolus benzos, patient's clinical status worsened requiring benzo gtt and ICU admission for DTs. Critical Care Provider Statement Critical care time was provided for 30 minutes by the attending physician. The time involved in the performance of this care was exclusive of separately billable procedures, teaching time and treating other patients. Critical care was necessary because of an illness or injury that acutely impaired one or more vital organs systems such that there was a high probability of imminent or life threatening deterioration in the patient s condition. The critical illness/injury acutely impaired the following organ systems: Central Nervous Critical care was time was spent personally by me on the following activities: obtaining history from patient, obtaining history from family / other source, examination of patient, ordering and/or performing treatments and / or interventions, re-evaluations of patient condition / response to treatment, ordering and review of laboratory studies, ordering and review of radiographic studies, discussions with consultants and / or primary provider, and review of old charts MD Cristal Ty MD documented in this encounter [facility] 11-18-2022 History of Present illness Narrative Pt a 62 yo M, CAT 2 trauma, presenting via [facility] from [facility] s/p fall with pancreatic contusion. Per report, pt was attempting to get a cat from a high place and placed a stool on top of the chair. The structure fell and the pt fell on the back of the chair, onto his abdomen area. Per request, called pt's brother, Dez Rojas [phone]. Brother asked SW to inform his brother that he loves him and will present to [facility] in the am. PLAN: pending TIANA Gonzalez, JUAN J, LCDCIII ED Scrubbing Machine Operator documented in this encounter [facility] 11-16-2022 Miscellaneous Notes Reason for Call: Patient cut his thumb 4 days ago on a knife. Patient states it is now red, swollen and draining yellowish-green drainage. Patient cannot move his thumb normally. Denies fever. Pain is 7/10/ Outcome: See PCP within the next 4 hours. Patient will go to [place] [facility]. Reason for Disposition Wound looks infected [1] Skin around the wound has become red AND [2] larger than 2 inches (5 cm) Answer Assessment - Initial Assessment Questions 1. LOCATION: Left thumb 2. WOUND APPEARANCE: Surrounding tissue is red, wound is gaping, draining yellowish-green pus 3. SIZE: 1/2 4. SPREAD: surrounding area is red 5. ONSET: Yesterday or the day before 6. MECHANISM: Cut it on a knife 7. PAIN: 7/10 8. FEVER: Denies 9. OTHER SYMPTOMS: Denies 10. : N/A Protocols used: Hand and Wrist [id number], Wound Hzdohglar-[id number]-QE documented in this encounter [facility] 10-21-2022 Miscellaneous Notes The following approved medication requests have been transmitted electronically. Requested Prescriptions Signed Prescriptions Disp Refills rosuvastatin (CRESTOR) 5 mg tablet 30 tablet 11 Sig: TAKE 1 TABLET BY MOUTH AT BEDTIME Authorizing Provider: ELISA IZQUIERDO omega 4-wda-vhb-fish oil 300 mg (120 mg- 180mg)-1,000 mg cap 60 capsule 8 Sig: TAKE 2 CAPSULES BY MOUTH AT BEDTIME Authorizing Provider: ELISA IZQUIERDO PA-C Requesting refills as follows: Requested Prescriptions Pending Prescriptions Disp Refills rosuvastatin (CRESTOR) 5 mg tablet [Pharmacy Med Name: rosuvastatin 5 mg tablet] 30 tablet 11 Sig: TAKE 1 TABLET BY MOUTH AT BEDTIME omega 6-zxb-pds-fish oil 300 mg (120 mg- 180mg)-1,000 mg cap [Pharmacy Med Name: omega-3 300 mg-dha 120 mg-epa 180 mg-fish oil 1,000 mg capsule] 60 capsule 8 Sig: TAKE 2 CAPSULES BY MOUTH AT BEDTIME Last visit 04/16/2022 Next scheduled Visit date not found documented in this encounter [facility] 10-11-2022 History of Present illness Narrative Images from the original note were not included. Therapy Cancellation/No-show Note Date: 10/11/2022 Patient: José Rojas (62 y.o. male) : 1960 Referring Physician: Prem Guthrie MD Medical Diagnosis: Psoas tendinitis of left side [M76.12] Lumbar radiculopathy [M54.16] Iliotibial band tendinitis of left side [M76.32] Visit Information: Insurance: Payor: [employer] PLAN / Plan: [employer] / Product Type: *No Product type* / Visits to Date: 2 No Show/Cancelled Appts: For today's appointment patient: [] Cancelled [] Rescheduled appointment [x] No-show Reason given by patient: [] Patient ill [] Conflicting appointment [] No transportation [] Conflict with work [x] No reason given [] Other: [x] Pt has future appointments scheduled, no follow up needed [] Pt requests to be on hold. Reason: If > 2 weeks please discuss with therapist. [] Therapist to call pt for follow up Signature: documented in this encounter [facility] Work Phone: 10-04-2022 History of Present illness Narrative [facility] Outpatient Physical Therapy Treatment Note Date: 10/04/2022 Patient: José Rojas : 1960 Confirmed: Yes Referring Provider: Prem Guthrie MD Secondary Referring Provider (If applicable): Medical Diagnosis: Psoas tendinitis of left side [M76.12] Lumbar radiculopathy [M54.16] Iliotibial band tendinitis of left side [M76.32] Treatment Diagnosis: decreased L hip AROM, decreased L LE and core strength, decreased balance, decreased activity tolerance and increased L low back and L hip pain during amb for 10 min and during stair negotiation Visit Information: Insurance: Payor: [employer] PLAN / Plan: [employer] PLAN / Product Type: *No Product type* / PT Visit Information Onset Date: (06/21/22) PT Insurance Information: [employer] Total # of Visits Approved: 30 Total # of Visits to Date: 2 No Show: 2 Canceled Appointment: 1 Progress Note Counter: 3/10 Subjective Information: Subjective: Pt states I felt some residual soreness but over HEP Compliance: [x] Good [] Fair [] Poor [] Reports not doing due to: Treatment: Exercises: Exercises Exercise 1: LTR X 5xe 10 Exercise 3: b/l hamstring stretch 20 sec X 3, seated Exercise 5: SLS 3x30 Lt w/ fingertouch support Exercise 6: gait training: 20'x3 Exercise 7: side step, retro, june x10 ea Exercise 8: step ups x10 F/L (Lt LE focused) Exercise 9: bridge x10 Exercise 10: 3 way SLR all directions x10 ea Lt LE, trial w/ TB NV* Exercise 11: Nu step x5 min Exercise 12: supine hip flexor str 30sec/ 3 Lt w/ strap, S/L ITB stretch 3x30 Lt Exercise 13: SKTC/DKTC- minimal stretch felt Exercise 20: HEP: 3 way SLR, bridge w/ band, SLS, step ups Modalities: Pt declined Objective Measures: Strength: [x] NT [] MMT completed: ROM: [] NT [x] ROM measurements: AROM LLE (degrees) L Hip Extension (0-10): 12 deg Assessment: Body Structures, Functions, Activity Limitations Requiring Skilled Therapeutic Intervention: Decreased functional mobility , Decreased ROM, Decreased strength, Decreased endurance, Decreased balance, Increased pain Assessment: Cont'd to progress program to work towards strength goals as pt is very anxious to return back to PLOF. Several exs were initiated according to POC in which pt tolerated well given cues needed for improved control/ technique to inc quality and effictiveness of exs. HEP provided to encourage consistency as well as discussed cont'd mobility routine to address pain/stiffness upon waking in AM. Pt able to maintain Lt SLS w/ only fingertouch support req. Pt wishing to decrease visit frequency to 1x this week to assess indep w/ HEP. Pt expressing cont'd interest in IDN w/ qualified PT NV if appropriate. Treatment Diagnosis: decreased L hip AROM, decreased L LE and core strength, decreased balance, decreased activity tolerance and increased L low back and L hip pain during amb for 10 min and during stair negotiation Post-Pain Assessment: Pain Rating (0-10 pain scale): 0/10 I feel good Location and pain description same as pre-treatment unless indicated. Action: [x] NA [] Perform HEP [] Meds as prescribed [] Modalities as prescribed [] Call Physician GOALS Patient Goal(s): Patient Goals : reduce pain Short Term Goals Completed by 3 wks Goal Status STG 1 Pt will demonstrate improved L hip AROM >/= 5-10 deg for carryover to decreased pain. In progress STG 2 Pt will demonstrate improved L LE and core strength >/= 4+/5 for community amb without pain. In progress Halfway Goals Completed by 5 wks Goal Status LTG 1 Pt will demonstrate indep and 100% compliance with HEP for self management of pain. In progress LTG 2 Pt will demonstrate improved score on LEFS >/= 50/80 for improved quality of life. In progress LTG 3 Pt will demonstrate decreased L low back, L SI joint, L hip pain </= 2/10 after community distance amb and after reciprocal stair negotiation of 1 flight. In progress Plan: Frequency/Duration: Plan Plan Frequency: 1 xs/wk (per pt) Plan weeks: 5 wks Current Treatment Recommendations: Strengthening, ROM, Balance training, Functional mobility training, Transfer training, Endurance training, Gait training, Stair training, Neuromuscular re-education, Pain management, Home exercise program, Safety education & training, Patient/Caregiver education & training, Equipment evaluation, education, & procurement, Positioning, Therapeutic activities Additional Comments: pt to be supervised by Orquidea Bethea PT Pt to continue current HEP. See objective section for any therapeutic exercise changes, additions or modifications this date. Therapy Time: PT Individual Minutes Time In: 1112 Time Out: 1157 Minutes: 45 Timed Code Treatment Minutes: 45 Minutes Procedure Minutes: N/A Timed Activity Minutes Units Ther Ex 45 3 documented in this encounter [facility] [employer] Work Phone: 09-30-2022 History of Present illness Narrative [facility] Outpatient Physical Therapy Treatment Note Date: 09/30/2022 Patient: José Rojas : 1960 Confirmed: Yes Referring Provider: Prem Guthrie MD Secondary Referring Provider (If applicable): Medical Diagnosis: Psoas tendinitis of left side [M76.12] Lumbar radiculopathy [M54.16] Iliotibial band tendinitis of left side [M76.32] psoas tindeinitis of L side; lumbar radiculopathy; iliotibial band tendinitis of L side Treatment Diagnosis: decreased L hip AROM, decreased L LE and core strength, decreased balance, decreased activity tolerance and increased L low back and L hip pain during amb for 10 min and during stair negotiation Visit Information: Insurance: Payor: [facility] [place] [employer] [employer] [place] / Plan: [facility] [place] [employer] [place] / Product Type: *No Product type* / PT Visit Information Onset Date: (06/21/22) PT Insurance Information: [employer] Total # of Visits Approved: 30 Total # of Visits to Date: 1 No Show: 2 Canceled Appointment: 1 Progress Note Counter: 06/11 Subjective Information: Subjective: Pt presents after 3 consecutive no show's. 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 Discussed strategies for improving attendance. HEP Compliance: [] Good [] Fair [] Poor [] Reports not doing due to: Pain Screening Pain Level: 6 Pain Orientation: Left Pain Descriptors: Aching Treatment: Exercises: Exercises Exercise 1: LTR X 5xe 10 Exercise 4: STS x5 Exercise 5: bed mobility independent Exercise 7: side step, retro, june x10 ea Exercise 9: bridge x10 Exercise 11: Nu step x5 min Exercise 12: supine hip flexor str 30sec/ 3 Exercise 20: HEP: *Indicates exercise, modality, or manual techniques to be initiated when appropriate Objective Measures: Ambulation Surface: Carpet Device: No Device Assistance: Independent Quality of Gait: no sig antalgia, mild increased hip flexion with VCs for extension Distance: 50 ft Assessment: Body Structures, Functions, Activity Limitations Requiring Skilled Therapeutic Intervention: Decreased functional mobility , Decreased ROM, Decreased strength, Decreased endurance, Decreased balance, Increased pain Assessment: Pt with increased tightness and aching ITB and psoas. Instructed in scar massage. Tolerated manual therapy/ tiger tail on quad and ITB. Pt required VCs to attend to task. VCs to decrease speed. Advised pt to not over do it and avoid activities that require compensation. Pt would benefit from continued PT. Will trial calling patient morning of appt to improve attendance and benefits of PT. Treatment Diagnosis: decreased L hip AROM, decreased L LE and core strength, decreased balance, decreased activity tolerance and increased L low back and L hip pain during amb for 10 min and during stair negotiation Post-Pain Assessment: Pain Rating (0-10 pain scale): 4/10 Location and pain description same as pre-treatment unless indicated. Action: [] NA [x] Perform HEP [x] Meds as prescribed [] Modalities as prescribed [] Call Physician GOALS Patient Goal(s): Patient Goals : reduce pain Short Term Goals Completed by 3 wks Goal Status STG 1 Pt will demonstrate improved L hip AROM >/= 5-10 deg for carryover to decreased pain. In progress STG 2 Pt will demonstrate improved L LE and core strength >/= 4+/5 for community amb without pain. In progress Paving Inspector Goals Completed by 5 wks Goal Status LTG 1 Pt will demonstrate indep and 100% compliance with HEP for self management of pain. In progress LTG 2 Pt will demonstrate improved score on LEFS >/= 50/80 for improved quality of life. In progress LTG 3 Pt will demonstrate decreased L low back, L SI joint, L hip pain </= 2/10 after community distance amb and after reciprocal stair negotiation of 1 flight. In progress Plan: Frequency/Duration: Plan Plan Frequency: 2 xs/wk Plan weeks: 5 wks Current Treatment Recommendations: Strengthening, ROM, Balance training, Functional mobility training, Transfer training, Endurance training, Gait training, Stair training, Neuromuscular re-education, Pain management, Home exercise program, Safety education & training, Patient/Caregiver education & training, Equipment evaluation, education, & procurement, Positioning, Therapeutic activities Additional Comments: pt to be supervised by Orquidea Bethea, PT Pt to continue current HEP. See objective section for any therapeutic exercise changes, additions or modifications this date. Therapy Time: PT Individual Minutes Time In: 1100 Time Out: 1148 Minutes: 48 Timed Activity Minutes Units Ther Ex 36 2 Manual 12 1 documented in this encounter [facility] [employer] Work Phone: 09-28-2022 History of Present illness Narrative Images from the original note were not included. Therapy Cancellation/No-show Note Date: 09/28/2022 Patient: José Rojas (62 y.o. male) : 1960 Referring Physician: Prem Guthrie MD Medical Diagnosis: Psoas tendinitis of left side [M76.12] Lumbar radiculopathy [M54.16] Iliotibial band tendinitis of left side [M76.32] psoas tindeinitis of L side; lumbar radiculopathy; iliotibial band tendinitis of L side Visit Information: Insurance: Payor: [employer] PLAN / Plan: [employer] PLAN / Product Type: *No Product type* / Visits to Date: 1 No Show/Cancelled Appts: For today's appointment patient: [] Cancelled [] Rescheduled appointment [x] No-show [x] Called pt to remind of next appointment Reason given by patient: [] Patient ill [] Conflicting appointment [] No transportation [] Conflict with work [] No reason given [x] Other: [x] Pt has future appointments scheduled, no follow up needed [] Pt requests to be on hold. Reason: If > 2 weeks please discuss with therapist. [] Therapist to call pt for follow up Comments: Called and spoke w/ pt regarding missed appt today. Pt notified that he has now missed 3 consecutive appts D/T no show. Pt reports difficulty remembering schedule D/T brain injuries despite having printout of schedule. SHUTTLE REPAIRER suggested placing schedule where he can see it daily and/or logging into his phone calender for daily reminders in addition to phone call reminders from clinic. Pt ensured therapist that he would be at next appt on 09/30/22. May consider cancelling future appts if cont's to NS. Signature: documented in this encounter [facility] [employer] Work Phone: 09-23-2022 History of Present illness Narrative [facility] Physical Therapy Cancellation/No-show Note Patient Name: José Rojas : 1960 Date: 09/23/2022 Diagnosis: psoas tindeinitis of L side; lumbar radiculopathy; iliotibial band tendinitis of L side Visit Information: PT Visit Information PT Insurance Information: [facility] Total # of Visits Approved: 30 Total # of Visits to Date: 1 No Show: 2 Canceled Appointment: 1 Progress Note Counter: 05/11 NS 09/21/22 and 09/23/22 For today's appointment patient: [] Cancelled [] Rescheduled appointment [x] No-show [x] Called pt to remind of next appointment Reason given by patient: [] Patient ill [] Conflicting appointment [] No transportation [] Conflict with work [] Weather [] No reason given [x] Other: Patient states you guys may not know this but I had traumatic brain injuries in the past and I can't remember things very well. Patient apologized for missing today's appointment agrees to next upcoming appt on at 10:15 am. SHUTTLE REPAIRER communicated we will continue to call day before appt. for reminders and give print out of schedule at each visit. Reminded patient of clinic not being open Tuesday for holiday so we won't be able to call again before next appointment. Signature: documented in this encounter [facility] [employer] Work Phone: 08-04-2022 Miscellaneous Notes Pharmacy requesting the following refill(s): Requested Prescriptions Pending Prescriptions Disp Refills VITAMIN B-2 100 mg tab [Pharmacy Med Name: Vitamin B-2 100 mg tablet] 360 tablet 3 Sig: Take 4 tablets by mouth once daily. KODY: 03/09/2022 Upcoming Appointment: None Please review and advise. Thank You, Arelis Lorenzo Ma August 04, 2022 10:18 AM documented in this encounter [facility] 07-07-2022 Miscellaneous Notes Last office visit: 03/09/22 Next office visit: none Patient phones requesting refills as follows: Requested Prescriptions Pending Prescriptions Disp Refills amitriptyline (ELAVIL) 50 mg tablet [Pharmacy Med Name: amitriptyline 50 mg tablet] 90 tablet 3 Sig: Take 1 tablet by mouth daily at bedtime. Please review and advise. Mirna Daly documented in this encounter [facility] 06-30-2022 Miscellaneous Notes Pt states he is still taking the medication and has lost some weight. Gained some due to hip replacement and not being as mobile. Please refill Has patient taken this medication already? Please remind me. Thanks. Please f/u with Dr Mccann documented in this encounter [facility] 06-21-2022 Note Intraprocedural fluo roscopic spot images as above. See separate procedure report for more information. [facility] 06-17-2022 Miscellaneous Notes Noted. Thank you Dr. Choi. Ayana De La Paz MA 06/17/22 1:52 PM José stated his migraines are getting worse and he is asking about injections. Please call him back at [phone]. Thank You, Nancy Rust documented in this encounter [facility] 06-04-2022 Miscellaneous Notes Physician: Dr Martínez Call from patient requesting refill. Please E-Scribe Last OV: 03/09/2022 Future OV: 06/09/2022 Requested Prescriptions Pending Prescriptions Disp Refills verapamil SR (CALAN SR, ISOPTIN SR) 180 mg CR tablet 90 tablet 0 Sig: Take 1 tablet by mouth daily at bedtime. Jorge Curry RN documented in this encounter [facility] 05-31-2022 Miscellaneous Notes KODY: 03/09/2022 Please review and advise. Thank You, Arelis Lorenzo Ma May 31, 2022 8:34 AM documented in this encounter [facility] 05-13-2022 Miscellaneous Notes Message left on pharmacy VM that switching to syringe is fine, but they need to educate patient on using syringe instead and to call us if any issues. [employer] is calling Tiffanie Choi MD today to ask if Emgality pen can be changed to syringe, as the pen is not in stock. Patient has been identified by name and birthdate. Duration of symptoms: N/A Person calling: pharmacy: [phone] Call patient at: on cell [phone] (home) [phone] (cell) Was an appointment scheduled: No Closing statement: Results or non-symptom based questions: Thank you for calling [facility], your call will be returned within the next business day. Natalie Peña documented in this encounter [facility] 05-12-2022 History of Present illness Narrative Images from the original note were not included. DISTANCE HEALTH VISIT This is a virtual visit using HIPAA compliant video platform. All issues as below were discussed and addressed but no physical exam was performed unless allowed by visual confirmation. If it was felt that the patient should be evaluated in clinic then they were directed there. Patient and/or parent(s) verbally consented to visit. Headache Clinic Date: May 12, 2022 Patient Name: José Rojas Referring physician: Day Holman [address] [facility] [address] Primary physician: Rosa Robertson [id number] [place] [address] Reason for Evaluation: Headaches Consultation requested by Dr. Holman for an opinion regarding headaches. My final recommendations will be communicated back to the requesting physician by way of shared Medical record or letter to requesting physician via US mail. HPI: Is a 61-year-old male presenting for evaluation of headaches. He was previously following with Dr. Holman. He has a history notable for CAD status post stenting, restless leg syndrome, anxiety, depression, and hypertension. From Dr. Holman's note on 11/12/2020: Seen 09/03/2020 in ED after 2 head injuries. First one when a heavy tool fell on his head resulting in laceration but no LOC. Second one 2-3 weeks prior. He was in a CAT tractor when it rolled on its side and upside down. He was not wearing a helmet and had hit his head on both sides with LOC. Persisting symptoms since the encounter included headache, photophobia, trouble concentrating, and heightened emotions. Previously seen 09/19/[address] Mcgraw. Headache described as holocephalic, persistent, throbbing, associated wit hphotphobia and neck pain. Other symptoms included: imbalance, short term memory issues, excessive sleepiness, and moodiness. 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 Plan for nortriptyline for headaches, ST for cognitive eval and rehab, gradual increase in activities, and f/u in 4 weeks. Patient states that he's had multiple concussions in his youth. As an adult, he's also had multiple episodes of head trauma. He estimates that in the 40 days prior to the CAT tractor event, he's had 2-3 concussions including one when a sledgehammer fell on his head. He also recalls head injury about a year ago when he fell off a ladder. He does state that the CAT tractor episode was the worst. It was associated with LOC though he's uncertain of the duration. When he woke, he was disoriented though the engine was still running. He has not had such difficulty with symptoms with past concussions. He's also dealing with a patient transporter and a DUI currently. It appears he initially had some improvement with Elavil but at his last visit on 03/09/2022 he reports that headaches worsen in the setting of increased stress. This prompted a referral to me. Of note, patient is a somewhat tangential historian and frequently focused on stress, memory problems, and multiple other factors separate from headaches, so precise headache history was a bit difficult to delineate. He reports headaches occurring on a daily basis. About 15 days/month he gets headaches that are 9-10 out of 10 in intensity lasting for about 24 hours. These headaches are behind the eyes and in the temples and are throbbing with accompanying photophobia, phonophobia, and nausea. Triggers include stress and certain sounds. His other headaches are about 5 out of 10 in intensity with no accompanying features. He has longstanding chronic back and neck pain. He reports that stress has been quite high and he is following with psychology for this. He reports that just about anything can set him off. He saw physical therapy in the past for his neck pain. He does endorse visual symptoms consisting of a lightening [place] that occurs with about 25% of his headaches. He was previously using Excedrin daily but on the advice of his PCP he has cut down use to about 2 days/week. He has no other complaints at this time. Current prophylactics: Amitriptyline, verapamil. Prophylactics tried: Lexapro, Prozac, gabapentin, lisinopril, metoprolol, nortriptyline, Lyrica Current abortives: Excedrin (few per week) Abortives tried: None SOCIAL HISTORY Smokin pack per day Alcohol: None Other drugs: None Occupation: Disability. OUTPATIENT MEDICATIONS Current Outpatient Medications on File Prior to Visit Medication Sig pantoprazole DR (PROTONIX) 40 mg tablet TAKE 1 TABLET BY MOUTH DAILY albuterol HFA (PROAIR HFA) 90 mcg/actuation inhaler 2 Puffs every 4 hours as needed for wheezing/shortness of breath. Take as directed naproxen (NAPROSYN) 500 mg tablet Take 1 tablet by mouth twice daily as needed (for pain). Take with food verapamil SR (CALAN SR, ISOPTIN SR) 180 mg CR tablet Take 1 tablet by mouth daily at bedtime. Ascorbic Acid 1,000 mg tablet TAKE 1 TABLET BY MOUTH DAILY VITAMIN D 25 mcg (1,000 unit) tab tablet TAKE 1 TABLET BY MOUTH DAILY escitalopram oxalate (LEXAPRO) 20 mg tablet Take 1.5 tablets by mouth once daily. divalproex ER (DEPAKOTE ER) 500 mg 24 hr tablet Take 1 tablet by mouth daily at bedtime for 7 days. cephALEXin (KEFLEX) 500 mg capsule Take 1 capsule by mouth three times daily. (Patient not taking: Reported on 04/16/2022) losartan (COZAAR) 50 mg tablet TAKE 1 TABLET BY MOUTH DAILY metoprolol succinate ER (TOPROL XL) 50 mg 24 hr tablet Take 1 tablet by mouth daily at bedtime. Ayajc-8-UJT-EPA-Fish Oil 1,000 mg (120 mg-180 mg) cap TAKE 2 CAPSULES BY MOUTH once DAILY AT BEDTIME rosuvastatin (CRESTOR) 5 mg tablet TAKE 1 TABLET BY MOUTH AT BEDTIME omega-3 fatty acids 1,000 mg cap Take 2 capsules by mouth once daily. At bedtime aspirin, enteric coated (ECOTRIN LOW STRENGTH) 81 mg EC tablet Take 1 tablet by mouth once daily. atorvastatin (LIPITOR) 40 mg tablet Take 1 tablet by mouth once daily. riboflavin, vitamin B2, (VITAMIN B2) 100 mg tab Take 4 tablets by mouth once daily. amitriptyline (ELAVIL) 50 mg tablet Take 1 tablet by mouth daily at bedtime. fluticasone (FLONASE) 50 mcg/actuation nasal spray use 2 (TWO) sprays IN EACH NOSTRIL DAILY AT BEDTIME CPAP New set up: AutoCPAP 5-15 cm H2O, mask (pt pref), filters, heated humidity & tubing. Lifetime supplies. [facility] G47.33. testosterone cypionate (DEPO-TESTOSTERONE) 200 mg/mL injection INJECT 0.5 ml INTRAMUSCULARLY EVERY TEN days. No current facility-administered medications on file prior to visit. MEDICAL HISTORY PAST MEDICAL HISTORY Diagnosis Date Acquired hallux limitus of left foot Acute NM (HCC) 08/2007 angina - bare metal stent x1 - to see Dr Ortiz 08/30 Arthritis of right hip inj helps - needs THR, 06/15/17:insurance did not approve Back pain 10/14/2015 pain management rec CPRP - do not refill percocet - 07/08/17:send to [facility] Chronic pain of toe of left foot Depression zoloft spinning couldn't get going, prozac creating action (act on neighbor) - celexa ETOH abuse Fibromyalgia 05/22/20:saw pain psychologist, used mental control to ignore pains GERD (gastroesophageal reflux disease) aciphex Hematuria 2019 saw urology in [place] Hiatal hernia History of PTCA Dr Germain HTN (hypertension) lisinopril Hyperlipidemia lipitor Lung nodule 10/16/2014 6 mm - recheck at 1 yr and 2 yrs NEGATIVE HISTORY OF No pn,tb,ca,dm Spinal stenosis 1995 accident went to PT - neck, mid back, right leg, 10/09, percocet / tid - Dr Brooks (pain management) - tried fentayl, methadone Testicular lump s/p removal, benign - testosterone - Dr Valentine SURGICAL HISTORY PAST SURGICAL HISTORY Procedure Laterality Date APPENDECTOMY 1983 PAST SURGICAL HISTORY OF 2008 one coronary stent/heart cath with stent PAST SURGICAL HISTORY OF 08/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 PAST SURGICAL HISTORY OF colonoscopy PAST SURGICAL HISTORY OF Left arthroscopy left knee PAST SURGICAL HISTORY OF Right shoulder and bicep PAST SURGICAL HISTORY OF Right hip PAST SURGICAL HISTORY OF Left toe FAMILY HISTORY FAMILY HISTORY Problem Relation Age of Onset other (back pain) Father neck spurs Heart Mother 45 NM, arthritis other (back pain) Brother None Sister x2, FM ALLERGIES ALLERGIES No Known Allergies REVIEW OF SYSTEMS: A 10-point review of systems was obtained and is negative except as per HPI above. review: Depression Screening 03/28/2019 10/09/2020 05/12/2022 PHQ-2 Score 0 6 2 PHQ-9 Score - 26 8 SACHA-2 Total Score - - 2 SACHA - 2/7 SCORES 05/12/2022 SACHA-2 Score 2 No flowsheet data found. No flowsheet data found. No flowsheet data found. OBJECTIVE PHYSICAL EXAM: There were no vitals taken for this visit. Awake, alert and oriented. Speech fluent. Full range of neck movement. Full range of EOM. No nystagmus. Face grossly symmetric. Tongue midline. Full range of movement of extremities. ASSESSMENT: The patient is a 61-year-old male presenting for evaluation of headaches. He has posttraumatic headaches with primarily a migraine phenotype. I discussed the diagnosis with him. I believe that his ongoing stress is a significant barrier to recovery and emphasized the critical importance of psychology follow-up. He also has chronic pain throughout his body which is longstanding. I would like to refer him to the center for pain recovery for further management. From a migraine standpoint, he has tried and failed multiple prophylactics as noted above. I therefore recommend trying Emgality monthly. I discussed side effects including injection site reaction and constipation. He can use Excedrin as an abortive but no more than 10 days/month. I will see him back in 5 to 6 months. All questions were answered. PLAN: - Emgality monthly for migraine prevention - Excedrin as needed for migraine up to 10 days per month - Continue following with psychology - Referral to center for pain recovery - Follow up in 5-6 months - to call sooner if any questions or concerns I spent 45 minutes in this visit, with more than 50% of the time devoted to patient counseling and coordination of care. ICHD-3 Diagnosis: Chronic Migraine Headache (CM) We will get a precert for Calcitonin Gene Related Peptide Monoclonal Antibody, Galcanezumab. This patient meets AHS criteria for treatment with CGRP MAB, He has Chronic Migraine Headache (CM), Chronic Migraine without aura, without mention of intractable migraine without mention of status migrainosus which occurs at least 15 days per month for at least 4 hours per day. The FDA has approved CGRP MAB for prevention of migraine. Specifically, the patient has 15 migraines per month, lasting 4 or more hours/d associated with photophobia, phonophobia, nausea for three or more months. Medication overuse headache has been ruled out. Patient is not currently taking a Gepant for acute treatment of his migraine. The following preventative medications have been tried for 3 or more months without benefit or discontinued due and/or side effects. Lexapro, Prozac, gabapentin, lisinopril, metoprolol, nortriptyline, Lyrica, amitriptyline, verapamil The following abortive medications have been tried but require high frequency use which can lead to Medication Overuse Headache: Excedrin My impression and recommendations were discussed at length with the patient (and family members, if present). The patient and family (if present) voiced understanding to my recommendations. All questions were answered. The patient was provided with a detailed after visit summary highlighting my impression and recommendations (if seen in outpatient setting). Tiffanie Choi MD Staff, Headache [facility] [place] Board Certified in Adult Neurology by [employer]BP[employer] Board Certified in Headache Medicine by [facility] Clinical Transformation Manager of Neurology with [facility] [address] [place] [address]/ [place] [address] Office: [phone] Portions of this note have been composed using voice recognition and may contain client liaison errors The results of this consult will be sent to the referring provider by either electronic medical record or standard mail. CC: Referring Physician: Day Holman [address] [place] [address] PCP: Rosa Robertson [id number] [place] [address] documented in this encounter [facility] 05-06-2022 Miscellaneous Notes The following approved medication requests have been transmitted electronically. Requested Prescriptions Signed Prescriptions Disp Refills pantoprazole DR (PROTONIX) 40 mg tablet 30 tablet 11 Sig: TAKE 1 TABLET BY MOUTH DAILY Authorizing Provider: ELISA IZQUIERDO PA-C documented in this encounter [facility] 05-05-2022 Miscellaneous Notes Spoke with patient, advised him to speak with his insurance regarding the Monjouro and Ozempic Advised pt that most of the time, insurance will only cover those meds if a patient has a dx of DM Advised him to speak with his insurance and find out that information, and which medication would be most cost effective for him. Patient agreed and will call us back with info from insurance. To provider/FYI Can we format what he is requesting? documented in this encounter [facility] 04-23-2022 History of Present illness Narrative VV done via Face Time. -OARRS reviewed: Got Testosterone filled on 03/18/2022 by Messi Marie -Pt says he has had R hip replacement but needs left hip replacement surgery. However, in order to get the surgery, he needs to have his weight down to 180 lbs. Current weight is 210 lbs per pt discussion. Pt is 71 inches tall. BMI is 29.3, which indicates he is overweight, not obese. -Hx of multiple brain injury per pt discussion. Gets headaches intermittently. -Says his BP is usually in the 140/80 range and DC is 80. -Goal BP should be less than 140/90 with ideal goal less than 130/80. -I encouraged the patient to monitor the blood pressure at home and let me know if BP is consistently above the goal. Patient expressed understanding. -Risks of high blood pressure include stroke, heart attack, eye problems, and kidney problems. Patient expressed understanding. -Not using CPAP machine anymore as he says he does not require the machine per pt discussion. -Has not drank alcohol in about one year. -Pt does exercise a few times/week per pt discussion. -Will send pt a list of weight loss medications that can be used via [facility]. He will check with his insurance and then we can decide on a plan on what to use and discuss potential side effects. -Voices no other complaints at this time. (M16.12) Primary osteoarthritis of left hip (primary encounter diagnosis) -Been doing home PT that he has learned in the past for his R hip. -Has gotten shots in his left hip. -Pt says that he can get hip replacement when he reaches weight as above. (E66.3) Overweight (BMI 25.0-29.9) -Encouraged him to lose 2 lbs/week as a healthy way via diet and exercise -Let's see if pt can start a weight loss medication Virtual visit lasted 30 minutes. documented in this encounter [facility] 04-23-2022 Miscellaneous Notes Pt is scheduled for VV. Pt can't do VV but can do the face time. Number and type of phone is in the notes. Called pt. Unable to leave message. Myc sent I assumed pt was going to log into Zoom. He did not so please schedule him for a virtual tomorrow and I can FaceTime or call him tomorrow. Thanks. Pt was scheduled with at 10:40 am 04/22/22 Please advise José Rojas called today. : 1960 Allergies: Patient has no known allergies. (home) [phone] (cell) Reason for call: patient did not understand the video visit. He thought he was going to get a call first and then connect. Patient is asking if provider can call him Patient last appointment: 04/22/2022 The patients preferred pharmacy has been captured for this encounter? no Moses chaudhari documented in this encounter [facility] 04-16-2022 History of Present illness Narrative cc: 6 wk f/u anxiety, SOB on verge of having COTO sees Dr Holman (neuro), sending him to specialist for COTO drinks coffee with sugar, for COTO +takes excedrin bid new hip, surgery planned in 3m told he needs to lose weight before he can have surgery changed celexa 60 to lexapro 30 sleeps well SOB a lot better SOB was due to lack of sleep and anxiety PAST MEDICAL HISTORY Diagnosis Date Acquired hallux limitus of left foot Acute NM (HCC) 08/2007 angina - bare metal stent x1 - to see Dr Ortiz 08/30 Arthritis of right hip inj helps - needs THR, 06/15/17:insurance did not approve Back pain 10/14/2015 pain management rec CPRP - do not refill percocet - 07/08/17:send to [facility] Chronic pain of toe of left foot Depression zoloft spinning couldn't get going, prozac creating action (act on neighbor) - celexa ETOH abuse Fibromyalgia 05/22/20:saw pain psychologist, used mental control to ignore pains GERD (gastroesophageal reflux disease) aciphex Hematuria 2019 saw urology in [place] Hiatal hernia History of PTCA Dr Germain HTN (hypertension) lisinopril Hyperlipidemia lipitor Lung nodule 10/16/2014 6 mm - recheck at 1 yr and 2 yrs NEGATIVE HISTORY OF No pn,tb,ca,dm Spinal stenosis 1995 accident went to PT - neck, mid back, right leg, 10/09, percocet /2 tid - Dr Brooks (pain management) - tried fentayl, methadone Testicular lump s/p removal, benign - testosterone - Dr Valentine PE: BP 151/93 Pulse 88 Resp 16 Wt 95.5 kg (210 lb 8 oz) BMI 29.36 kg/m Gen: NAD Affect: wnl A/P: (R51.9) Nonintractable headache, unspecified chronicity pattern, unspecified headache type (primary encounter diagnosis) Comment: rebound COTO Plan: stop taking excedrin (M25.559) Hip pain Comment: He asks for weight loss medication. Plan: naproxen (NAPROSYN) 500 mg tablet will refer to Dr Mccann for help with weight loss medication (F41.9) Anxiety Comment: improved Plan: continue lexapro RTC 4 mo, physical Rosa Robertson MD documented in this encounter [facility] 04-16-2022 Nurse Note 151/93 A 147/96 154/96 154/97 145/91 158/90 145/83 documented in this encounter [facility] 03-16-2022 Miscellaneous Notes The following approved medication requests have been transmitted electronically. Requested Prescriptions Signed Prescriptions Disp Refills Ascorbic Acid 1,000 mg tablet 90 tablet 3 Sig: TAKE 1 TABLET BY MOUTH DAILY Authorizing Provider: ELISA IZQUIERDO VITAMIN D 25 mcg (1,000 unit) tab tablet 90 tablet 3 Sig: TAKE 1 TABLET BY MOUTH DAILY Authorizing Provider: ELISA IZQUIERDO PA-C Last ov- 03/04/2022 documented in this encounter [facility] 03-05-2022 Miscellaneous Notes Behavioral Health Social Work Progress Note Patient identified for [facility] from: PCP Reason for referral: Resources Behavioral Health Resources: Psychology - talk therapy [facility] encounter type: Telephone Encounter Attempts to Outreach: 1 attempt Final Disposition: Care established with Patient Discharged?: Yes Patient reported that caregiver was able to meet their needs today?: Yes SW placed a phone call to patient at the request of the PCP. Pt reports he is currently working with a talk therapy provider, and was started on medication from his PCP. Pt would like to continue working with his PCP and nuerologist, before seeing a psychiatry provider. Pt stated he recently tested positive for lorazapam, he took one of his father's. He stated he was wondering about a getting a Rx for this medication from his PCP, so he doesn't get a probation violation for testing positive at his substance use provider appointment. JAKUB informed patient this would likely not be possible, and even if she were to write for this medication, the start date of the Rx would be after his positive test. Pt stated he is trying to avoid having a probation violation. SW encouraged patient to speak with his therapist at [facility] about accepting his consequence for his choice. Pt stated he will do this. SW encouraged patient to follow up with [facility] if he chooses to pursue additional medication. MICHELLE Ahuja-Harsh March 05, 2022 documented in this encounter [facility] 03-04-2022 History of Present illness Narrative cc: panic attacks, SOB 02/26: he is hypertensive and reports he has not taken his antihypertensives yet today. Otherwise, his vital signs are stable. His D-dimer is within normal limits which makes PE unlikely. High-sensitivity troponins are both within normal limits, making ACS unlikely. BNP within normal limits. No significant electrolyte abnormality or renal insufficiency on lab testing. Chest x-ray negative for acute consolidation, effusion or pneumothorax. CT neck shows no acute process. Low suspicion for aortic catastrophe. These results were discussed with the patient. He prefers to follow-up as an outpatient I feel that he stable to do so. went to ER SOB CP +very fatigued all the time 08/04/20 stress test nl +a lot of anxiety neighbor calling police on him, granted protection order 30 min walking PAST MEDICAL HISTORY Diagnosis Date Acquired hallux limitus of left foot Acute NM (HCC) 08/2007 angina - bare metal stent x1 - to see Dr Ortiz 08/30 Arthritis of right hip inj helps - needs THR, 06/15/17:insurance did not approve Back pain 10/14/2015 pain management rec CPRP - do not refill percocet - 07/08/17:send to [facility] Chronic pain of toe of left foot Depression zoloft spinning couldn't get going, prozac creating action (act on neighbor) - celexa ETOH abuse Fibromyalgia 05/22/20:saw pain psychologist, used mental control to ignore pains GERD (gastroesophageal reflux disease) aciphex Hematuria 2019 saw urology in [place] Hiatal hernia History of PTCA Dr Germain HTN (hypertension) lisinopril Hyperlipidemia lipitor Lung nodule 10/16/2014 6 mm - recheck at 1 yr and 2 yrs NEGATIVE HISTORY OF No pn,tb,ca,dm Spinal stenosis 1995 accident went to PT - neck, mid back, right leg, 10/09, percocet 1/2 tid - Dr Brooks (pain management) - tried fentayl, methadone Testicular lump s/p removal, benign - testosterone - Dr Valentine PE: BP 147/97 Pulse 112 Resp 16 Gen: NAD CV: RRR Pulm: CTAB Affect: wnl A/P: (F41.9) Anxiety (primary encounter diagnosis) Comment: Plan: [facility]SULT [facility], escitalopram oxalate (LEXAPRO) 20 mg tablet increase celexa 60 to lexapro 30 (R06.02) SOB (shortness of breath) Comment: due to lack of sleep and anxiety Plan: escitalopram oxalate (LEXAPRO) 20 mg tablet RTC 6 wk, f/u anxiety, SOB Rosa Robertson MD documented in this encounter [facility] 03-04-2022 Nurse Note 147/97 A 145/101 138/95 145/99 146/102 150/101 157/87 documented in this encounter [facility] 03-02-2022 Miscellaneous Notes Scheduled for mar 09 Spoke with patient He is having panic attacks recently worsening, worsening headaches, having SOB, elevated BP Patient concerned due to his hx of multiple head injuries, having neuro issues and headaches that are not getting better with meds Patient recently seen in ED on 02/27 for same issues, discharged to home Advised pt that if symptoms continue, or worsen before appt on 03/04, go back to the ED, pt agreed. Will also forward message to NEURO, pt scheduled to see neurologist in May 2022, pt would like to be seen earlier, feels that neurologically, he is deteriorating documented in this encounter [facility] 03-02-2022 Miscellaneous Notes Spoke to pt about new Rx Pt called states he is having worse migraines that last days. He rates his pain 15 out of 10, feels like my eyes are going to pop out - He states he's been taking Amytriplyine, excedrine, OTC allergy medicine, Hydroxyzine. Pt is asking for migraine medicine, his family suggested Imitrex -While on the phone he checked his BP- 167/105 HR- 98 KODY: 11/25/2021 NOV: 05/26/2022 documented in this encounter [facility] 02-26-2022 Note HNO ID: [id number] Author: RT Dustin(Parminder) Service: ? Author Type: Technologist Type: Progress Notes Filed: 02/26/2022 12:11 PM Note Text: Radiology Service Progress Note PATIENT NAME: José Rojas DATE OF SERVICE: February 26, 2022 TIME: 12:11 PM PATIENT IDENTITY VERIFICATION COMPLETED USING TWO (2) IDENTIFIERS: Name and Date of confirmed by patient verbally and Name and Date of confirmed by identification band. FALL SCREENING: Has the patient had 2 falls in the last year or 1 fall with injury or currently using an Ambulatory Assistive Device (Walker, Cane, Wheelchair, Crutches, etc.)? Emergency Room Patient: Screened in ED PATIENT GENDER DATA: Male PATIENT RELEVANT IMPLANT DATA REVIEWED: Not Applicable RADIOLOGY DEPARTMENT: CT; Exam(s) Completed: Neck PERIPHERAL IV DATA: Site assessment: Clean,Dry and Intact, Site disposition Left in for next appointment SIGNED BY: RT Dustin(R) February 26, 2022 12:11 PM [facility] 02-26-2022 Note HNO ID: [id number] Author: RT Kaylen(R) Service: Radiology Author Type: Technologist Type: Progress Notes Filed: 02/26/2022 9:58 AM Note Text: Radiology Service Progress Note PATIENT NAME: José Rojas DATE OF SERVICE: February 26, 2022 TIME: 9:58 AM PATIENT IDENTITY VERIFICATION COMPLETED USING TWO (2) IDENTIFIERS: Name and Date of confirmed by patient verbally and Name and Date of confirmed by identification band. FALL SCREENING: Has the patient had 2 falls in the last year or 1 fall with injury or currently using an Ambulatory Assistive Device (Walker, Cane, Wheelchair, Crutches, etc.)? Emergency Room Patient: Screened in ED PATIENT GENDER DATA: Male PATIENT RELEVANT IMPLANT DATA REVIEWED: Not Applicable RADIOLOGY DEPARTMENT: General X-ray: Exam(s) Completed: Chest X-Ray PERIPHERAL IV DATA: Not applicable SIGNED BY: Dexter Chandler RT(R) February 26, 2022 9:58 AM [facility] 02-22-2022 History of Present illness Narrative VIRTUAL VISIT PROGRESS NOTE This is a virtual visit using Audio only. It required patient-provider interaction for the medical decision making as documented below. José Rojas is a 61 year old male seen for breathing difficulties. Nurse triage of symptoms 02/14 with severe chest pain and shortness of breath and foamy cough. Patient did not go to ED per recommendations, however scheduled appointment for today. He states that I can't breath and I am sweating this is all with exertion going up a small set of steps. Sleep 2 hours but wakes up because I can't breath and sweating. It's like I'm having a panic attack. States I have a deep wheezing. Every morning he admits that he coughs up with foamy cough and productive cough in the morning. Wakes up in the morning with mixed alcoholic drink . Still smokes. He admits that this has been going on since June of this year. Admits to chest pain in the left chest wall. This has been constant for 3 months and worsened with cough and movement and there without movement. No fever or chills. States that the blood pressure has been elevated at home > 190/>120 and his pulse has been > 110 and at a time today was above >120. Overall anxious. HISTORY REVIEWED (electronic chart updated): PAST MEDICAL HISTORY Diagnosis Date Acquired hallux limitus of left foot Acute NM (HCC) 08/2007 angina - bare metal stent x1 - to see Dr Ortiz 08/30 Arthritis of right hip inj helps - needs THR, 06/15/17:insurance did not approve Back pain 10/14/2015 pain management rec CPRP - do not refill percocet - 07/08/17:send to [facility] Chronic pain of toe of left foot Depression zoloft spinning couldn't get going, prozac creating action (act on neighbor) - celexa ETOH abuse Fibromyalgia 05/22/20:saw pain psychologist, used mental control to ignore pains GERD (gastroesophageal reflux disease) aciphex Hematuria 2019 saw urology in [place] Hiatal hernia History of PTCA Dr Germain HTN (hypertension) lisinopril Hyperlipidemia lipitor Lung nodule 10/16/2014 6 mm - recheck at 1 yr and 2 yrs NEGATIVE HISTORY OF No pn,tb,ca,dm Spinal stenosis 1995 accident went to PT - neck, mid back, right leg, 10/09, percocet 1/2 tid - Dr Brooks (pain management) - tried fentayl, methadone Testicular lump s/p removal, benign - testosterone - Dr Valentine PAST SURGICAL HISTORY Procedure Laterality Date APPENDECTOMY 1983 PAST SURGICAL HISTORY OF 2008 one coronary stent/heart cath with stent PAST SURGICAL HISTORY OF 08/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 PAST SURGICAL HISTORY OF colonoscopy PAST SURGICAL HISTORY OF Left arthroscopy left knee PAST SURGICAL HISTORY OF Right shoulder and bicep PAST SURGICAL HISTORY OF Right hip PAST SURGICAL HISTORY OF Left toe FAMILY HISTORY Problem Relation Age of Onset other (back pain) Father neck spurs Heart Mother 45 [place], arthritis other (back pain) Brother None Sister x2, FM Social History Tobacco Use Smoking status: Every Day Packs/day: 0.50 Years: 10.00 Pack years: 5.00 Types: Cigarettes Smokeless tobacco: Current Tobacco comments: Smokes less than a pack a day, one and off quitter Substance Use Topics Alcohol use: Yes Alcohol/week: 14.0 standard drinks Types: 14 Cans of Beer (12oz) per week Comment: 2 shots a day, bourbon at 7 Drug use: No Current Outpatient Medications Medication Sig cephALEXin (KEFLEX) 500 mg capsule Take 1 capsule by mouth three times daily. losartan (COZAAR) 50 mg tablet TAKE 1 TABLET BY MOUTH DAILY metoprolol succinate ER (TOPROL XL) 50 mg 24 hr tablet Take 1 tablet by mouth daily at bedtime. VITAMIN C 1,000 mg tablet TAKE 1 TABLET BY MOUTH DAILY cholecalciferol (VITAMIN D3) 1,000 unit tab tablet TAKE 1 TABLET BY MOUTH DAILY Qrcbd-2-XZB-EPA-Fish Oil 1,000 mg (120 mg-180 mg) cap TAKE 2 CAPSULES BY MOUTH once DAILY AT BEDTIME rosuvastatin (CRESTOR) 5 mg tablet TAKE 1 TABLET BY MOUTH AT BEDTIME omega-3 fatty acids 1,000 mg cap Take 2 capsules by mouth once daily. At bedtime aspirin, enteric coated (ECOTRIN LOW STRENGTH) 81 mg EC tablet Take 1 tablet by mouth once daily. atorvastatin (LIPITOR) 40 mg tablet Take 1 tablet by mouth once daily. riboflavin, vitamin B2, (VITAMIN B2) 100 mg tab Take 4 tablets by mouth once daily. amitriptyline (ELAVIL) 50 mg tablet Take 1 tablet by mouth daily at bedtime. fluticasone (FLONASE) 50 mcg/actuation nasal spray use 2 (TWO) sprays IN EACH NOSTRIL DAILY AT BEDTIME CPAP New set up: AutoCPAP 5-15 cm H2O, mask (pt pref), filters, heated humidity & tubing. Lifetime supplies. SUSANNAH G47.33. (Patient not taking: Reported on 09/25/2021 ) pantoprazole DR (PROTONIX) 40 mg tablet Take 1 tablet by mouth once daily. albuterol HFA (PROAIR HFA) 90 mcg/actuation inhaler 2 Puffs every 4 hours as needed for wheezing/shortness of breath. Take as directed testosterone cypionate (DEPO-TESTOSTERONE) 200 mg/mL injection INJECT 0.5 ml INTRAMUSCULARLY EVERY TEN days. citalopram (CELEXA) 40 mg tablet Take 1.5 tablets by mouth once daily. No current facility-administered medications for this visit. ALLERGIES No Known Allergies REVIEW OF SYSTEMS: All other ROS: negative As noted in HPI PHYSICAL EXAMINATION: VIDEO EXAM: (if completed, performed via video enabled technology) No exam performed ASSESSMENT: (R07.9) Chest pain, unspecified type (primary encounter diagnosis) (R06.02) Shortness of breath (F41.9) Anxiety (I10) Hypertension, unspecified type (R00.0) Tachycardia PLAN: ASSESSMENT/PLAN: 1. Chest pain, unspecified type - ICD9: 786.50, ICD10: R07.9 (primary diagnosis) - This has been chronically unchanged for 3 months. I do not suspect acute ACS. I suspect this is related to panic and anxiety and cough. Cough and shortness of breath do not sound acute, however difficult for patient to identify true onset of symptoms, however appear to be greater then 3 months. Is not acutely distressed on phone and no conversational dyspnea. - Offered CXR, however patient admits that he drinks two alcoholic beverages every morning and has had depression without SI/HI, however admits that his blood pressure has been consistently > 190/120 and heart rate as been >110/-120's. -Offered EMS services, declined by patient. Patients father is going to take to the nearest ED which is [facility]. Report called to [facility] staff, Kathy Huber PA-C. 2. Shortness of breath - ICD9: 786.05, ICD10: R06.02 - See above. 3. Anxiety - ICD9: 300.00, ICD10: F41.9 - See above. 4. Hypertension, unspecified type - ICD9: 401.9, ICD10: I10 - See above. 5. Tachycardia - ICD9: 785.0, ICD10: R00.0 - See above. I spent a total of 40 minutes on the date of the service which included preparing to see the patient, [id number] patient care, completing clinical documentation, obtaining and/or reviewing separately obtained history, performing a medically appropriate examination, counseling and educating the patient/family/caregiver, and ordering medications, tests, or procedures. Jesus Manuel Marion PA-C documented in this encounter [facility] 02-22-2022 History of Present illness Narrative HPI: José presents status post cheilectomy over the right first metatarsophalangeal joint. Surgery was on February 05, 2022. He relates that he has been doing well and has not had any new issues with that area. ROS: Constitutional: denies Nausea/Vominting/Fever. Eyes, Ears, Nose, and Throat: denies blurred vision, difficulty eating or tinnitis. Cardiovascular: History of acute NM; history of hypertension GI: History of GERD : denies incontinence/polyuria Dermatology: denies ulcers/sores. Musculoskeletal: See HPI Respiratory: denies asthma/emphysema/pneumonia Psychiatric: History of depression Neurological: denies memory loss or paralysis Endocrine: denies thyroid disorder or diabetes LOWER EXTREMITY EXAM: Patient A & O X's 3, NAD. VASC: Palpable pedal pnoted bilaterally. DERM: Skin margins coapting well. No dehiscence noted. No signs of infection present. ORTHO: Patient relates tenderness around surgical site on right foot consistent with surgical intervention. NEURO: Able to discern between light and dull touch on both feet. ASSESSMENT: Status post cheilectomy of the right first metatarsophalangeal joint area. TREATMENT/PLAN: -Patient to address site with a Band-Aid daily. Follow-up in 1 week for reevaluation. documented in this encounter [facility] 02-18-2022 Miscellaneous Notes would he like a virtual visit, help schedule with [facility]AG [facility]AILER or PA, [address] Robertson to address this issue. Requesting message be sent to her for further recommendations Reason for Call: pt was previously recommended on 02/14/22 to dial 911 r/t having difficulty breathing and foamy cough. Pt also stated that he has been using his fathers albuterol and it is not helping. Pt did not follow previous recommendation and states that his symptoms are worsening. Outcome: pt was advised to again dial 911 as he has not been treated and his symptoms are worsening. Pt declines, was thankful, and disconnected the call. Dr Robertson was called and message left to contact NOC at 1330 Spoke with the nurse in the office and she will speak to Dr Robertson about patient concerns. Pt was notified that the office will be in contact with him. documented in this encounter [facility] 02-14-2022 Miscellaneous Notes Reason for Call: pt c/o severe sob and chest pain. Pt states he has a productive cough that is foamy . Believes he has COPD. Used his fathers nebulizer (?) and thinks it may have helped. Also admits to feeling weak and thinks his breathing is getting worse . Outcome: Disposition-Call 911 now. Pt acknowledged/accepted recommendation. Reinforced need to seek medical help now. Reason for Disposition SEVERE difficulty breathing (e.g., struggling for each breath, speaks in single words) Protocols used: Chest [id number] documented in this encounter [facility] 02-12-2022 Miscellaneous Notes Please call the pt. Is he smoking now? Which dose is he requesting? Requesting refills as follows: Requested Prescriptions Pending Prescriptions Disp Refills nicotine (NICODERM) 14 mg/24 hr [Pharmacy Med Name: nicotine 14 mg/24 hr daily transdermal patch] 30 Patch 2 Sig: Apply 1 Patch as directed every 24 hours. nicotine (NICODERM) 21 mg/24 hr [Pharmacy Med Name: nicotine 21 mg/24 hr daily transdermal patch] 30 Patch 2 Sig: apply 1 (ONE) patch to skin DIRECTED EVERY 24 HOURS nicotine (NICODERM) 7 mg/24 hr [Pharmacy Med Name: nicotine 7 mg/24 hr daily transdermal patch] 2 Sig: apply 1 (ONE) patch to skin DIRECTED EVERY 24 hours Last visit 12/03/2021 Next scheduled Visit date not found documented in this encounter [facility] 02-09-2022 History of Present illness Narrative HPI: José presents status post cheilectomy over the right first metatarsophalangeal joint. Surgery was on February 05, 2022. Patient relates doing well with current oral analgesics. ROS: Constitutional: denies Nausea/Vominting/Fever. Eyes, Ears, Nose, and Throat: denies blurred vision, difficulty eating or tinnitis. Cardiovascular: History of acute NM; history of hypertension GI: History of GERD : denies incontinence/polyuria Dermatology: denies ulcers/sores. Musculoskeletal: See HPI Respiratory: denies asthma/emphysema/pneumonia Psychiatric: History of depression Neurological: denies memory loss or paralysis Endocrine: denies thyroid disorder or diabetes LOWER EXTREMITY EXAM: Patient A & O X's 3, NAD. VASC: Palpable pedal pnoted bilaterally. DERM: Skin margins coapting well. No dehiscence noted at this time over the right first metatarsophalangeal join. ORTHO: Patient relates tenderness around surgical site on right foot consistent with surgical intervention. NEURO: Able to discern between light and dull touch on both feet. ASSESSMENT: Status post cheilectomy of the right first metatarsophalangeal joint area. TREATMENT/PLAN: -New dressing applied. Patient encouraged to continue to elevate and decrease activity. He understands to not bear weight over the right forefoot area. Follow-up in 1 week for reevaluation. documented in this encounter [facility] 02-09-2022 History of Present illness Narrative Radiology Service Progress Note PATIENT NAME: José Rojas DATE OF SERVICE: February 09, 2022 TIME: 2:12 PM PATIENT IDENTITY VERIFICATION COMPLETED USING TWO (2) IDENTIFIERS: Name and Date of confirmed by patient verbally. FALL SCREENING: Has the patient had 2 falls in the last year or 1 fall with injury or currently using an Ambulatory Assistive Device (Walker, Cane, Wheelchair, Crutches, etc.)? No PATIENT GENDER DATA: Male PATIENT RELEVANT IMPLANT DATA REVIEWED: Not Applicable RADIOLOGY DEPARTMENT: General X-ray: Exam(s) Completed: Lower Extremity X-Ray(s): Foot, Right PERIPHERAL IV DATA: Not applicable SIGNED BY: RT Escobar(R) February 09, 2022 2:12 PM documented in this encounter [facility] 01-29-2022 History and physical note HISTORY AND PHYSICAL EXAMINATION SERVICE DATE: 01/29/2022 SERVICE TIME: 10:07 AM PRIMARY CARE PHYSICIAN: Rosa Robertson MD REASON FOR VISIT: José Rojas is a 61 year old male who is scheduled for CORRECT HALLUX RIGIDUS W/ CHEILECTOMY,DEBRIDEMENT, CAPSULAR RELEASE 1ST MTJ (Cheilectomy over the right first metatarsal phalangeal joint) (right) at the request of Dr. Gatito Morgan V for consultation. My final recommendation will be communicated back to the requesting physician by way of shared medical record or letter. The patient has the following: ACTIVE PROBLEM LIST Radicular Pain of Right Lower Extremity Vitamin D Deficiency Lumbago Misuse of Drugs Opioid Dependence (Hcc) Myofascial Pain Syndrome Neck Pain Lumbar Spinal Stenosis Testosterone Deficiency Hypogonadism in Male Osteoarthrosis, Unspecified Whether Generalized Or Localized, Pelvic Region and Thigh Epididymal Mass Adenomatoid Tumor Right Shoulder Pain Cigarette Nicotine Dependence Without Complication Bilateral Low Back Pain Without Sciatica Cervicalgia Secondary Osteoarthritis of Multiple Sites Fibromyalgia Chest Pain Syncope Heart Palpitations Dizziness Mixed Hyperlipidemia Atherosclerosis of [place] Coronary Artery of [place] Heart With Stable Angina Pectoris (Hcc) Encounter for Screening for Malignant Neoplasm of Colon Anxiety Osteoarthritis of Right Hip Medial Meniscus Tear Htn (Hypertension) Floaters, Bilateral Asteroid Hyalosis of Right Eye Primary Osteoarthritis of Right Hip Degeneration of Lumbar Intervertebral Disc Scoliosis (And Kyphoscoliosis), Idiopathic Sacroiliac Joint Pain Left Cervical Radiculopathy Achilles Rupture, Left Achilles Tendinosis Achilles Tendinitis of Left Lower Extremity Enthesopathy of Foot Achilles Tendon Pain Calcification of Tendon Traumatic Complete Tear of Right Rotator Cuff Status post arthroscopy of right shoulder (01/17/19) Epididymitis Testis Pain Rupture of Right Distal Biceps Tendon Status Post Right Distal Biceps Tendon Repair (12/27/2019) Acute NM (Hcc) Gerd (Gastroesophageal Reflux Disease) Lung Nodule Acquired Hallux Limitus of Left Foot Pain in Toe of Left Foot Sebaceous Cyst Concussion With Loss of Consciousness Cognitive Communication Deficit Obesity, Class I, Bmi 30-34.9 Sleep Apnea Subjective CHIEF COMPLAINT: Pre-op exam HPI: This is a 61 year old male that is scheduled for the above procedure. Patient has a history of a right foot hallux rigidus that is causing worsening pain. Patient states current pain is 7/10 and 10/10 with weight bearing. Patient states pain is slightly relieved with rest and elevation. PAST MEDICAL HISTORY Diagnosis Date Acquired hallux limitus of left foot Acute NM (HCC) 08/2007 angina - bare metal stent x1 - to see Dr Ortiz 08/30 Arthritis of right hip inj helps - needs THR, 06/15/17:insurance did not approve Back pain 10/14/2015 pain management rec CPRP - do not refill percocet - 07/08/17:send to [facility] Chronic pain of toe of left foot Depression zoloft spinning couldn't get going, prozac creating action (act on neighbor) - celexa ETOH abuse Fibromyalgia 05/22/20:saw pain psychologist, used mental control to ignore pains GERD (gastroesophageal reflux disease) aciphex Hematuria 2019 saw urology in [place] Hiatal hernia History of PTCA Dr Germain HTN (hypertension) lisinopril Hyperlipidemia lipitor Lung nodule 10/16/2014 6 mm - recheck at 1 yr and 2 yrs NEGATIVE HISTORY OF No pn,tb,ca,dm Spinal stenosis 1995 accident went to PT - neck, mid back, right leg, 10/09, percocet 05/03 tid - Dr Brooks (pain management) - tried fentayl, methadone Testicular lump s/p removal, benign - testosterone - Dr Valentine PAST SURGICAL HISTORY Procedure Laterality Date APPENDECTOMY 1983 PAST SURGICAL HISTORY OF 2008 one coronary stent/heart cath with stent PAST SURGICAL HISTORY OF 08/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 PAST SURGICAL HISTORY OF colonoscopy PAST SURGICAL HISTORY OF Left arthroscopy left knee PAST SURGICAL HISTORY OF Right shoulder and bicep PAST SURGICAL HISTORY OF Right hip PAST SURGICAL HISTORY OF Left toe FAMILY HISTORY Problem Relation Age of Onset other (back pain) Father neck spurs Heart Mother 45 [place], arthritis other (back pain) Brother None Sister x2, FM SOCIAL HISTORY: Social History Tobacco Use Smoking status: Every Day Packs/day: 0.50 Years: 10.00 Pack years: 5.00 Types: Cigarettes Smokeless tobacco: Current Tobacco comments: Smokes less than a pack a day, one and off quitter Substance Use Topics Alcohol use: Yes Alcohol/week: 14.0 standard drinks Types: 14 Cans of Beer (12oz) per week Comment: 2 shots a day, bourbon at 7 Drug use: No MEDICATIONS: Prior to Admission medications as of 01/29/22 1022 Medication Sig Last Dose Taking benzonatate (TESSALON PERLE) 100 mg capsule Take 1 capsule by mouth three times daily as needed. Yes losartan (COZAAR) 50 mg tablet TAKE 1 TABLET BY MOUTH DAILY Yes metoprolol succinate ER (TOPROL XL) 50 mg 24 hr tablet Take 1 tablet by mouth daily at bedtime. Yes VITAMIN C 1,000 mg tablet TAKE 1 TABLET BY MOUTH DAILY Yes cholecalciferol (VITAMIN D3) 1,000 unit tab tablet TAKE 1 TABLET BY MOUTH DAILY Yes Clwkf-5-GUA-EPA-Fish Oil 1,000 mg (120 mg-180 mg) cap TAKE 2 CAPSULES BY MOUTH once DAILY AT BEDTIME Yes rosuvastatin (CRESTOR) 5 mg tablet TAKE 1 TABLET BY MOUTH AT BEDTIME Yes aspirin, enteric coated (ECOTRIN LOW STRENGTH) 81 mg EC tablet Take 1 tablet by mouth once daily. Yes atorvastatin (LIPITOR) 40 mg tablet Take 1 tablet by mouth once daily. Yes riboflavin, vitamin B2, (VITAMIN B2) 100 mg tab Take 4 tablets by mouth once daily. Yes amitriptyline (ELAVIL) 50 mg tablet Take 1 tablet by mouth daily at bedtime. Yes fluticasone (FLONASE) 50 mcg/actuation nasal spray use 2 (TWO) sprays IN EACH NOSTRIL DAILY AT BEDTIME Yes pantoprazole DR (PROTONIX) 40 mg tablet Take 1 tablet by mouth once daily. Yes albuterol HFA (PROAIR HFA) 90 mcg/actuation inhaler 2 Puffs every 4 hours as needed for wheezing/shortness of breath. Take as directed Yes testosterone cypionate (DEPO-TESTOSTERONE) 200 mg/mL injection INJECT 0.5 ml INTRAMUSCULARLY EVERY TEN days. Yes citalopram (CELEXA) 40 mg tablet Take 1.5 tablets by mouth once daily. Yes omega-3 fatty acids 1,000 mg cap Take 2 capsules by mouth once daily. At bedtime CPAP New set up: AutoCPAP 5-15 cm H2O, mask (pt pref), filters, heated humidity & tubing. Lifetime supplies. SUSANNAH G47.33. Patient not taking: Reported on 09/25/2021 No medication comments found. CURRENT ALLERGIES: ALLERGIES No Known Allergies COVID VACCINATION STATUS: Fully vaccinated REVIEW OF SYSTEMS: PAIN ASSESSMENT: Pain Pain Level: 8 (increased pain with ambulation) Duration Units: Years Frequency: Continuous Intervention/Comfort measure: Reposition;Relaxation General: No weight loss, malaise or fevers. Neuro: No history of TIA's, stroke, INTERMEDIATE TEACHER tumor, impaired sensorium, hemiplegia, paraplegia or quadraplegia. No neurological symptoms or problems. Respiratory: No history of current cough or dyspnea, or pneumonia in the past 6 weeks. No history of respiratory/pulmonary symptoms or problems. Cardiovascular: Positive for: Anticoagulation therapy, CAD; Stents: 1, HLD, Hypertension, NM, Negative for Chest Pain, DVT/PE GI: Positive for GERD, Negative for Difficulty swallowing, Liver disease : No history of dysuria, frequency or incontinence,, stones or chronic kidney disease, No difficulty urinating, nocturia > 1 time per night or hematuria Endocrine: No history of diabetes. Has not taken steroids within the past 30 days. No history of endocrinological symptoms or problems. Hematology: Chronic anti-coagulation / platelet meds (Aspirin) Oncology: No history of CA metastasis, chemo within 30 days, or radiotherapy within 90 days. Has not lost 10% of body wt in 6 months. No history of oncological symptoms or problems. Psych: No history of psychiatric symptoms or problems. Musculoskeletal: See HPI Skin: Negative for lesions, rash and itching. Objective PHYSICAL EXAM: VITALS: BP 166/95 Pulse 99 Temp (Src) 98.4 (Temporal Artery) Resp 20 Ht 5' 11 (1.80m) Wt 215 lb (97.5kg) SpO2 97% BMI 30.00 kg/(m^2). General: Alert and oriented, No acute distress Skin: Normal color, no rash, no lesions. HEENT: EOM, pupils equal, round and reactive. Cardiovascular: Normal S1 & S2, no rubs, murmurs or gallops. No JVD. Pulse regular. Lungs: Normal breath sounds, no wheezes or crackles. Abdomen: Soft, non-tender, no rigidity., No masses or organomegaly. Extremities: Joint tenderness right foot Neurological: Normal cognition and motor skills. Gait normal. No weakness or sensory deficit. Pulses: Carotid and radial pulses normal +2. Diagnostic tests reviewed for today's visit: Lab Value Units Date High Low HB 15.1 g/dL 09/07/2021 17.0 13.0 HCT 45.2 % 09/07/2021 51.0 39.0 WBC 5.62 k/uL 09/07/2021 11.00 3.70 PLT 277 k/uL 09/07/2021 400 150 NA 138 mmol/L 10/22/2021 144 136 K 3.8 mmol/L 10/22/2021 5.1 3.7 GLUC 131 mg/dL 10/22/2021 99 74 BUN 15 mg/dL 10/22/2021 24 9 CREAT 0.67 mg/dL 10/22/2021 1.22 0.73 ALT 63 U/L 10/22/2021 54 10 AST 56 U/L 10/22/2021 40 14 TBILI 0.2 mg/dL 10/22/2021 1.3 0.2 TSH 1.940 mIU/L 10/22/2021 4.200 0.270 Hemoglobin A1C (%) Date Value 09/07/2021 5.4 01/13/2018 5.2 05/24/2017 5.4 11/26/2014 5.2 EKG 04/08/20 SINUS RHYTHM BORDERLINE RIGHT AXIS DEVIATION Otherwise Normal ECG Stress ECHO 08/04/20 - Exam indication: Dyspnea on exertion - The exercise stress echo was negative for ischemia at 100 % of MPHR (8.3 METS). Average functional capacity for age and gender. - The left ventricle is normal in size. Left ventricular systolic function is normal. EF = 59 5% (2D biplane) - The right ventricle is normal in size. Right ventricular systolic function is normal. - Exam was compared with the prior echocardiographic exam performed on 08/11/16. PSG 12/28/20 1. Moderate obstructive sleep apnea. Respiratory events were associated with oxygen desaturations to a lesa of 85%. The severity of this sleep related breathing disorder may be underestimated due to limited recorded REM sleep, and to the presence of mild flow and effort decrements associated with arousal and/or oxygen desaturation not meeting established [facility] respiratory event criteria. Of note, the Respiratory Disturbance Index (RDI) was in the severe range. CXR 12/11/21 No acute radiographic abnormality. US Carotid 08/24/21 No significant plaque formation or critical stenosis on either side. No significant waveform or velocity alteration Assessment/Plan Mixed hyperlipidemia Assessment: managed with med, stable Heart palpitations Assessment: stable and asymptomatic 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) Assessment: follows up with cardiology, stable Daily aspirin Acute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 impairment Cranial Nerves: visual tidwell intact to confrontation, extraocular movements intact, facial sensation intact, face symmetric, no facial droop or ptosis, hearing intact to finger rub bilaterally, no dysarthria and shoulder shrug intact and symmetric. Motor: Right Upper: Left Upper: Deltoid: 5 Deltoid: 5 Triceps: 5 Triceps: 5 Biceps: 5 Biceps: 5 Logistics Associate: 5 Logistics Associate: 5 Finger abduction: 5 Finger abduction: 5 Finger adduction: 5 Finger adduction: 5 Right Lower: Left Lower: Iliopsoas: 5 Iliopsoas: 5 Knee flexor: 5 Knee flexor: 5 Knee extensor: 5 Knee extensor: 5 Dorsiflexion: 5 Dorsiflexion: 5 Plantarflexion: 5 Plantarflexion: 5 Motor Tone: Right Upper: Normal tone Left Upper: Normal tone Right Lower: Normal tone Left Lower: Normal tone Sensation: intact BUE to touch Coordination: Finger-to- nose-finger intact bilaterally. Gait; limited by left knee pain Romberg: self corrected, neg LABS/DATA: Component Latest Ref Rng & Units 10/22/2021 Protein, Total 6.3 - 8.0 g/dL 7.0 Albumin 3.9 - 4.9 g/dL 4.6 Calcium 8.5 - 10.2 mg/dL 9.6 Bilirubin, Total 0.2 - 1.3 mg/dL 0.2 Alkaline Phosphatase 38 - 113 U/L 112 AST 14 - 40 U/L 56 (H) ALT 10 - 54 U/L 63 (H) Glucose 74 - 99 mg/dL 131 (H) BUN 9 - 24 mg/dL 15 Creatinine 0.73 - 1.22 mg/dL 0.67 (L) Sodium 136 - 144 mmol/L 138 Potassium 3.7 - 5.1 mmol/L 3.8 Chloride 97 - 105 mmol/L 103 CO2 22 - 30 mmol/L 22 Anion Gap 9 - 18 mmol/L 13 eGFR >=60 mL/min/1.73m 108 LDL Cholesterol, Direct <100 mg/dL 115 (H) VLDL Cholesterol <30 mg/dL 62 (H) TSH 0.270 - 4.200 mIU/L 1.940 IMAGIN09/08/2021 Carotid US ICA Stenosis Estimation Right 0-29% per the NASCET criteria Left 0-29% per the NASCET criteria No significant plaque formation or critical stenosis on either side. No significant waveform or velocity alteration ASSESSMENT: 61 year old male with a history of HTN, CAD, alcoholism, multiple head traumas who presents for follow-up re chronic post-concussive syndrome and headaches. Headaches now under control but cognitive/mood symptoms persist. Discussed that patient may not have 100% recovery but it would be reasonable to revisit ST now that headaches are controlled PLAN: - ST for cognitive therapy - continue elavil 50mg qhs - f/u with ortho re L knee I spent a total of 30 minutes on the date of the service which included preparing to see the patient, [id number] patient care, completing clinical documentation, obtaining and/or reviewing separately obtained history, performing a medically appropriate examination, counseling and educating the patient/family/caregiver and independently interpreting results (not separately reported). Day Holman MD Staff, General Neurology Pager: [phone] CC: Referring Physician: SELF PCP: Rosa Robertson [id number] [place] [address] documented in this encounter [facility] 11-18-2021 Miscellaneous Notes Spoke to patient and does not think its infected. Will wait for gel auth. Pt identified by name and Pt notified of below message and verbalizes understanding. Patient wanted to update Provider Requesting appointment for increased knee pain/swelling/redness Sitting its 12/09 Walking with metal/hinged knee splint 02/08 Patient states he has been elevating, icing. He was taken off Naproxen/ibuprofen by his PCP Please advise documented in this encounter [facility] 11-15-2021 Miscellaneous Notes Patient calling with health information: patient requesting health information about phone call missed . Patient denies any new or worsening symptoms of which a provider is not aware:Yes. As we are on the call he gets a text for an appointment reminder. GO TO THE EMERGENCY ROOM OR CALL 911 IF: * You develop any new symptoms * Your condition worsens * You are concerned or anxious about your condition for any other reason. If you have any questions, you can call Nurse nonprofit financial controller back. documented in this encounter [facility] 11-10-2021 History of Present illness Narrative Associated Order(s): Large Joint Arthro/Inj: L knee joint Post-Procedure Diagnose(s): Primary osteoarthritis of left knee José Rojas is a patient of Rosa Robertson MD. CHIEF COMPLAINT: José Rojas is a 61 year old male who presents today for follow up of left knee. HISTORY OF PRESENT ILLNESS: PAIN EVALUATION 11/10/2021 1401 Pain Level: 8 Pain Location: Knee-Left Description: Aching;Sore;Dull Duration Units: Months Frequency: Intermittent Intervention/Comfort measure: Relaxation;Reposition Has been seen in the past for left knee pain Denies any new injury Pain in the anterior knee Has received CSI and visco in the past Visco has helped significantly previously SOCIAL HISTORY: Tobacco Use: 1 packs/day, for 10 years. Quit 12/31/2020. Types: Cigarettes (Off and on; quit October 2017 again. ) PHYSICAL EXAMINATION: Specific MSK Exam no effusion noted TTP over the anterior knee No weakness with leg extension IMAGING: No imaging was performed today. CLINICAL IMPRESSION / ASSESSMENT: (M17.12) Primary osteoarthritis of left knee (primary encounter diagnosis) PLAN: Will proceed with CSI to the left knee at this time Will also submit for visco at this time Activities as tolerated Rationale for Viscosupplementation: Renewal Request As a part of a multimodal treatment plan, we are requesting authorization of hyaluronic acid viscosupplementation injections for the improvement of symptoms related to osteoarthritis. Authorization is being requested for treatment of the Left knee. Rationale for authorization of these injections is based on the following elements: Signs and Symptoms Length of symptoms > 3 months Pain interferes with ADLs? Yes Radiographic evidence of OA? Yes Previous Treatments Bracing attempted? Yes Formal Physical Therapy (PT)/ Home Exercise Program (HEP) attempted? Patient completed a comprehensive PT program with compliance to HEP NSAID medication attempted? Yes Corticosteroid injection attempted? Patient has had a previous CSI with intermittent relief Weight management attempted? No (Normal BMI) Prior Viscosupplementation Prior viscosupplementation? Yes Prior viscosupplementation improved symptoms? Yes Prior viscosupplementation improved symptoms at least 6 months? Yes Patient continues to be symptomatic despite above treatment attempts. Requested Viscosupplementation Preferred product: Synvisc One Alternative product: Synvisc One or payor preferred Large Joint Arthro/Inj: L knee joint Informed Consent Consent Obtained: Verbal Burton Protocol A moment to CARE was completed. SIGN IN Personnel directly involved with the procedure wore the appropriate PPE. Special Equipment: N/A Patient/Surrogate Stated/Verified: Patient name, Date of , Relevant allergies and Intended procedure TIME OUT Intended patient and procedure match the source document(s). Consent documented and matches the intended procedure. No relevant labs, photos, and/or imaging studies were applicable for review. Correct side/site marked and visible. Medications required for procedure verified. No fire risk assessment and interventions applicable. No implant(s) inserted. 11/10/2021 2:24 PM The procedure site was prepped in the usual sterile fashion. Site: L knee joint Medications: 40 mg triamcinolone acetonide 40 mg/mL Anesthetics: 4 mL lidocaine (PF) 10 mg/mL (1 %) Outcome: Tolerated well, no immediate complications Post-injection instructions were reviewed with the patient and the patient voiced understanding of these instructions. SIGN OUT No specimen collected. No instruments, equipment or retained foreign bodies applicable. Post-procedure follow-up management communicated and Plan of Care Visit completed when applicable Facundo Pena DO documented in this encounter [facility] 11-05-2021 Miscellaneous Notes The following approved medication requests have been transmitted electronically. Signed Prescriptions Disp Refills Ckzub-2-OVB-EPA-Fish Oil 1,000 mg (120 mg-180 mg) cap 60 capsule 11 Sig: TAKE 2 CAPSULES BY MOUTH once DAILY AT BEDTIME BEATRICE: No Authorizing Provider: ROSA ROBERTSON rosuvastatin (CRESTOR) 5 mg tablet 30 tablet 11 Sig: TAKE 1 TABLET BY MOUTH AT BEDTIME BEATRICE: No Authorizing Provider: ROSA ROBERTSON MD Last ov- 09/25/2021 documented in this encounter [facility] 11-03-2021 Miscellaneous Notes Vikas is out and José will go to [facility] for updated xray's and check for injury/treatment. Will keep appointment next Tuesday for express care follow up with Dr. Pena. I think I may have torn my meniscus or the ACL in my knee. (left knee) Said he's had long standing pain with this left knee Has had a procedure on it to 'remove some damaged tissue Has also had synvisc1 injections and said they really helped a lot Calling today to report: 5 days ago Doing yard work And was kneeling down May have twisted his left knee I heard a pop Said he's been icing the area, immobilized it and is elevating it Hurts to stand or walk on Can stand on it without extreme pain but is limping on it Any kind of movement really hurts, especially behind the knee cap is a really bad throbbing pain. No major deformity visible It's red around the knee cap Not hot to the touch No fevers The swelling has improved with ice/elevation Asking about imaging? He did ask about getting another left knee injection or what options to treat would be ? PT HAS AN APPT WITH DR. PENA NEXT WEEK ON [facility] UNABLE TO GET HIM A SOONER APPT PT IS ASKING IF YOU CAN ORDER AN XRAY FOR HIM TO DO (NOW) INSTEAD OF WAITING UNTIL NEXT WEEK? I did suggest [facility] as a possible option tonight He would like to ask Dr. Pena what he thinks first Asking if you can you see him sooner than next week? Call back # [phone] vmx okay documented in this encounter [facility] 10-07-2021 History of Present illness Narrative CMN RECEIVED BY [employer] VIA FAX, COMPLETED, AND PLACED IN PROVIDER MAILBOX FOR SIGNATURE [employer] 10/07/21 [employer] SENDING CMN: [facility] SIGNED AND DATED CMN, FAXED TO DME & CONFIRMATION PAGE RECEIVED: 10/12/21 documented in this encounter [facility] 09-26-2021 Miscellaneous Notes Patient is calling stating that he had called 911 and a squad checked him out in the drive way. Patient states that he had a Blood pressure of 177/120 dizzy and headache. States that he was told that his Blood pressure was not high enough to go to the emergency room . Patient asked triage if he could take an extra Blood pressure medication. Triage advised not to take any extra dosage of medication. Patient said it was too late, that he had taken an extra dosage of his Metoprolol just now. Patient advised to go to ED now. Patient did not want to be triage States that he was fine and that he will call back if he get any worse. Patient advise:GO TO THE EMERGENCY ROOM OR CALL 911 IF: * You develop any new symptoms * Your condition worsens * You are concerned or anxious about your condition for any other reason. If you have any questions, you can call Nurse nonprofit financial controller back. documented in this encounter [facility] 09-25-2021 Instructions Marine Short MD - 09/25/2021 1:15 PM EDT 64 oz water daily Vit C 1000 mg po daily Vit D 1000 international unit(s) po daily Men One a kathryn 50+ Salt gargle Biotene documented in this encounter [facility] 09-25-2021 History of Present illness Narrative José Rojas is a 61-year-old right-handed male. This is my first encounter with this patient. His PCP is Nisha Tanner. He came today with concern for cough. Current medical issues were discussed. HPI: He has had cough for the past two weeks productive of a foamy yellow phlegm. He has not been able to sleep with the cough. He has been taking Sudafed with minimal relief. He has no fever, no chills. He tested negative for COVID19 on 09/21/2021. 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 He has seen Dr. Valentine in the past who has prescribed him testosterone. HTN: Uncontrolled may be from the cough and Sudafed. Last 3 Encounter BP Readings: Date: BP: 09/25/2021 168/110, 160/100 08/25/2021 125/88 08/20/2021 159/108 Hyperlipidemia. Uncontrolled. His most recent lipid panels are: Cholesterol, Total (mg/dL) Date Value 09/07/2021 266 05/24/2017 144 06/14/2016 228 HDL Cholesterol (mg/dL) Date Value 09/07/2021 40 05/24/2017 37 06/14/2016 42 LDL Cholesterol Date Value 09/07/2021 Comment: Unable to calculate due to increased Triglycerides. See LDL-Chol, Direct. 05/24/2017 83 mg/dL LDL Calculated (mg/dL) Date Value 06/14/2016 152 Triglyceride (mg/dL) Date Value 09/07/2021 1,208 05/24/2017 120 06/14/2016 171 Current Immunizations Reviewed on 09/29/2021 Name Date COVID-19 vaccine (IntY - PURPLE TOP) 09/25/2020 , 09/03/2020 INFLUENZA 02/03/2020 , 01/13/2019 , 01/31/2018 Tdap (Age 7+) 10/15/2018 , 01/24/2015 PAST MEDICAL HISTORY Diagnosis Date Acquired hallux limitus of left foot Acute NM (HCC) 08/2007 angina - bare metal stent x1 - to see Dr Ortiz 08/30 Arthritis of right hip inj helps - needs THR, 06/15/17:insurance did not approve Back pain 10/14/2015 pain management rec CPRP - do not refill percocet - 07/08/17:send to [facility] Chronic pain of toe of left foot Depression zoloft spinning couldn't get going, prozac creating action (act on neighbor) - celexa ETOH abuse Fibromyalgia 05/22/20:saw pain psychologist, used mental control to ignore pains GERD (gastroesophageal reflux disease) aciphex Hematuria 2019 saw urology in [place] Hiatal hernia History of PTCA Dr Germain HTN (hypertension) lisinopril Hyperlipidemia lipitor Lung nodule 10/16/2014 6 mm - recheck at 1 yr and 2 yrs NEGATIVE HISTORY OF No pn,tb,ca,dm Spinal stenosis 1995 accident went to PT - neck, mid back, right leg, 10/09, percocet 1/2 tid - Dr Brooks (pain management) - tried fentayl, methadone Testicular lump s/p removal, benign - testosterone - Dr Valentine PAST SURGICAL HISTORY Procedure Laterality Date APPENDECTOMY 1983 ARTHRP ACETBLR/PROX FEM PROSTC AGRFT/ALGRFT Right PAST SURGICAL HISTORY OF 2008 one coronary stent/heart cath with stent PAST SURGICAL HISTORY OF 09/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 ALLERGIES: Patient has no known allergies. MEDICATIONS: Current Outpatient Medications Medication Sig Dispense Refill benzonatate (TESSALON PERLES) 100 mg capsule Take 1 capsule by mouth three times daily as needed for cough. 30 capsule 0 aspirin, enteric coated (ECOTRIN LOW STRENGTH) 81 mg EC tablet Take 1 tablet by mouth once daily. 90 tablet 3 atorvastatin (LIPITOR) 40 mg tablet Take 1 tablet by mouth once daily. 90 tablet 3 riboflavin, vitamin B2, (VITAMIN B2) 100 mg tab Take 4 tablets by mouth once daily. 360 tablet 3 fluticasone (FLONASE) 50 mcg/actuation nasal spray use 2 (TWO) sprays IN EACH NOSTRIL DAILY AT BEDTIME [address] (PROTONIX) 40 mg tablet Take 1 tablet by mouth once daily. 30 tablet 11 metoprolol succinate ER (TOPROL XL) 100 mg Take 1 tablet by mouth once daily. 30 tablet 11 albuterol HFA (PROAIR HFA) 90 mcg/actuation inhaler 2 Puffs every 4 hours as needed for wheezing/shortness of breath. Take as directed 1 Each 0 lisinopril (ZESTRIL, PRINIVIL) 10 mg tablet Take 1 tablet by mouth once daily. 90 tablet 3 testosterone cypionate (DEPO-TESTOSTERONE) 200 mg/mL injection INJECT 0.5 ml INTRAMUSCULARLY EVERY TEN days. 6 mL 1 citalopram (CELEXA) 40 mg tablet Take 1.5 tablets by mouth once daily. 135 tablet 3 amitriptyline (ELAVIL) 50 mg tablet Take 1 tablet by mouth daily at bedtime. (Patient not taking: Reported on 09/25/2021 ) 90 tablet 3 CPAP New set up: AutoCPAP 5-15 cm H2O, mask (pt pref), filters, heated humidity & tubing. Lifetime supplies. SUSANNAH G47.33. (Patient not taking: Reported on 09/25/2021 ) 1 Each 0 metoprolol succinate ER (TOPROL XL) 50 mg 24 hr tablet Take 1 tablet by mouth daily at bedtime. (Patient not taking: Reported on 08/25/2021 ) 90 tablet 3 naproxen (NAPROSYN) 500 mg tablet Take 1 tablet by mouth twice daily as needed (for pain). Take with food (Patient not taking: Reported on 09/25/2021 ) 60 tablet 5 ibuprofen (MOTRIN) 600 mg tablet Take 1 tablet by mouth every 8 hours as needed for Pain. Take with food. (Patient not taking: Reported on 09/25/2021 ) 100 tablet 0 Current Facility-Administered Medications Medication Dose Route Frequency Provider Last Rate Last Admin perflutren lipid microspheres 1.3 mL in NaCl (PF) 0.9% 10 mL injection (DEFINITY) INTRAVENOUS DIRECTED PRN Rosa Robertson MD sodium chloride 0.9 % (flush) 10 mL (BD POSIFLUSH) 10 mL INTRAVENOUS DIRECTED PRN Rosa Robertson MD FAMILY HISTORY Problem Relation Age of Onset other (back pain) Father neck spurs Heart Mother 45 NM, arthritis other (back pain) Brother None Sister x2, FM Social History Tobacco Use Smoking status: Former Smoker Packs/day: 1.00 Years: 10.00 Pack years: 10.00 Types: Cigarettes Quit date: 12/2020 Years since quittin.7 Smokeless tobacco: Current User Tobacco comment: Off and on; quit October 2017 again. Substance Use Topics Alcohol use: Not Currently Alcohol/week: 35.0 standard drinks Types: 14 Cans of Beer (12oz) per week Comment: 12 shots a day. Drug use: No REVIEW OF SYSTEMS: Complete ROS of 10 systems otherwise negative except for what was mentioned above in the HPI and PMH. Family and social history reviewed/obtained and was updated/recorded as necessary. Please see chart/appropriate section of EMR for details. PHYSICAL EXAMINATION: BP 168/110 Pulse 102 Temp 97.7 Wt 219 lb (99.3kg) SpO2 97% General appearance: Fair-appearing, in no acute distress, fairly-hydrated, fairly-nourished, alert, awake, oriented to time, place and person. Skin: No rashes. HEENT: Eyes: Anicteric sclera. Pupils are equally round and reactive to light. Extraocular movements are intact. Ears: External ears normal, canals clear, TM's normal. Nose/Sinuses: Congested. Oropharynx: Lips, mucosa, oropharynx hyperremic. Neck: Neck supple. Lungs: Clear to auscultation, no wheezing or rhonchi. Heart: RRR no S3. Abdomen: Soft, non-tender. Bowel sounds heard. Extremities: No deformities, no edema. Musculoskeletal: No LOM. Peripheral pulses: Present. Neuro: Gait not unsteady. Sensation grossly intact. Endo:No diabetes, no thyroid disease. Testosterone deficiency. Psych:No psychiatric problems. Impression/Plan: DIAGNOSIS: ASSESSMENT/PLAN: 1. Cough - ICD9: 786.2, ICD10: R05.9 (primary diagnosis) - Bronchitis vs TIMOTHY cough. - DOXYCYCLINE MONOHYDRATE 100 MG CAPSULE - XR CHEST 2V FRONTAL/LAT - CHOLECALCIFEROL (VITAMIN D3) 25 MCG (1,000 UNIT) TABLET - ASCORBIC ACID (VITAMIN C) 1,000 MG TABLET 2. Hoarseness - ICD9: 784.42, ICD10: R49.0 - From coughing vs viral - Salt gargle, Biotene, Vit C - CHOLECALCIFEROL (VITAMIN D3) 25 MCG (1,000 UNIT) TABLET - ASCORBIC ACID (VITAMIN C) 1,000 MG TABLET 3. Throat congestion - ICD9: 784.99, ICD10: R68.89 - DOXYCYCLINE MONOHYDRATE 100 MG CAPSULE - CHOLECALCIFEROL (VITAMIN D3) 25 MCG (1,000 UNIT) TABLET - ASCORBIC ACID (VITAMIN C) 1,000 MG TABLET 4. Hypertension, unspecified type - ICD9: 401.9, ICD10: I10 - suboptimal control - Begin losartan(Cozaar) - Discontinue lisinopril (Zestril/Prinivil) - Recommended regular aerobic exercise. - Recommend home blood pressure monitoring, to bring results in on next visit - Goal of BP <130/80 - LOSARTAN 50 MG TABLET 5. Hypertriglyceridemia - ICD9: 272.1, ICD10: E78.1 - Uncontrolled. - Encouraged following a low fat, low cholesterol diet. - ROSUVASTATIN 5 MG TABLET - LIPID PANEL BASIC - COMP METABOLIC PANEL - OMEGA-3 FATTY ACIDS 1,000 MG CAPSULE 6. Testosterone deficiency - ICD9: 259.9, ICD10: E34.9 - CONSULT TO ENDOCRINOLOGY Marine Short MD ORDERS: Office Visit on 09/25/21 XR CHEST 2V FRONTAL/LAT LIPID PANEL BASIC COMP METABOLIC PANEL CONSULT TO ENDOCRINOLOGY losartan (COZAAR) 50 mg tablet rosuvastatin (CRESTOR) 5 mg tablet omega-3 fatty acids 1,000 mg cap doxycycline monohydrate (MONODOX) 100 mg capsule cholecalciferol (VITAMIN D) 1,000 unit tab tablet Ascorbic Acid (VITAMIN C) 1,000 mg tablet The patient was instructed to call if with any other concerns. RTC with PCP, earlier when needed. Patient was advised to call 24-48 hours after a test is done if he does not receive results of tests. Marine Short MD documented in this encounter [facility] 09-25-2021 History of Present illness Narrative Today's visit was done virtually. Patient consented to encounter being done as a Virtual Visit. Patient's name and date of were verified for identification during this visit. 61yo WM with h/o hypogonadism dx 2012, due to opioid dependence/SUSANNAH and h/o right inguinal exploration with right orchiectomy in 2014 +/- multiple past head trauma, CAD s/p PCI to LAD in 2008, carotid artery stenosis, mixed HLP, HTN, previously followed by Dr. Valentine, here for f/u Used to take testosterone 100mg every 10 days but not on it for last year. Had multiple concussions in 07/2020 and was absent-minded, did not f/u with his meds since then. Since 01/20 he notes a lot of URTI that will not go away. Feels very weak overall, lacks interest in normal activities. Gained 40 lbs as well. Usually 185 lbs but now 220 lbs. 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 Sweats profusely at night, has insomnia but cannot use his CPAP because of his URTI issues. ED: Yes, not having erections at all, not even partially hard Low libido: kind of withdrawn but yes feels arousal mentally at times Viagra/Cialis use: has used Viagra but not for the last year, helps him get an erection Energy loss: Yes Sleep disturbance: Yes Wt change: Yes, see above. Notes that lately he has been eating whatever is available , drinks 7up (two 16oz bottles per day) and 1 Gatorade per day, also drinking 8 EtOH drinks daily, denies other junk food though Sweats: Yes Breast enlargement: No Galactorrhea: No Shaving frequency change: No Body hair: No Acne: No COTO: Yes, since his concussions Testosterone use: Yes, after recent labs his friend gave him testosterone from online site which helped his energy a little, and gave him a morning erection but it was short-lived, just took one dose. Also in May he took testosterone injections for a month All other Review of Systems reviewed and are negative. PAST MEDICAL HISTORY Diagnosis Date Acquired hallux limitus of left foot Acute NM (HCC) 08/2007 angina - bare metal stent x1 - to see Dr Ortiz 08/30 Arthritis of right hip inj helps - needs THR, 06/15/17:insurance did not approve Back pain 10/14/2015 pain management rec CPRP - do not refill percocet - 07/08/17:send to [facility] Chronic pain of toe of left foot Depression zoloft spinning couldn't get going, prozac creating action (act on neighbor) - celexa ETOH abuse Fibromyalgia 05/22/20:saw pain psychologist, used mental control to ignore pains GERD (gastroesophageal reflux disease) aciphex Hematuria 2019 saw urology in [place] Hiatal hernia History of PTCA Dr Germain HTN (hypertension) lisinopril Hyperlipidemia lipitor Lung nodule 10/16/2014 6 mm - recheck at 1 yr and 2 yrs NEGATIVE HISTORY OF No pn,tb,ca,dm Spinal stenosis 1995 accident went to PT - neck, mid back, right leg, 10/09, percocet / tid - Dr Brooks (pain management) - tried fentayl, methadone Testicular lump s/p removal, benign - testosterone - Dr Valentine FAMILY HISTORY Problem Relation Age of Onset other (back pain) Father neck spurs Heart Mother 45 NM, arthritis other (back pain) Brother None Sister x2, FM Social History Tobacco Use Smoking status: Former Smoker Packs/day: 1.00 Years: 10.00 Pack years: 10.00 Types: Cigarettes Quit date: 12/2020 Years since quittin.7 Smokeless tobacco: Current User Tobacco comment: Off and on; quit October 2017 again. Substance Use Topics Alcohol use: Not Currently Alcohol/week: 35.0 standard drinks Types: 14 Cans of Beer (12oz) per week Comment: 12 shots a day. Drug use: No No outpatient medications have been marked as taking for the 09/25/21 encounter (Appointment) with Josue Pena MD. perflutren lipid microspheres 1.3 mL in NaCl (PF) 0.9% 10 mL injection (DEFINITY), , INTRAVENOUS, DIRECTED PRN, Rosa Robertson MD sodium chloride 0.9 % (flush) 10 mL (BD POSIFLUSH), 10 mL, INTRAVENOUS, DIRECTED PRN, Rosa Robertson MD PE: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 1.5 tablets by mouth once daily. testosterone cypionate (DEPO-TESTOSTERONE) 200 mg/mL injection INJECT 0.5 ml INTRAMUSCULARLY EVERY TEN days. Current Facility-Administered Medications on File Prior to Visit Medication perflutren lipid microspheres 1.3 mL in NaCl (PF) 0.9% 10 mL injection (DEFINITY) sodium chloride 0.9 % (flush) 10 mL (BD POSIFLUSH) perflutren lipid microspheres 1.3 mL in NaCl (PF) 0.9% 10 mL injection (DEFINITY) sodium chloride 0.9 % (flush) 10 mL (BD POSIFLUSH) MEDICAL HISTORY PAST MEDICAL HISTORY Diagnosis Date Acquired hallux limitus of left foot Acute NM (HCC) 08/2007 angina - bare metal stent x1 - to see Dr Ortiz 08/30 Arthritis of right hip inj helps - needs THR, 06/15/17:insurance did not approve Back pain 10/14/2015 pain management rec CPRP - do not refill percocet - 07/08/17:send to [facility] Chronic pain of toe of left foot Depression zoloft spinning couldn't get going, prozac creating action (act on neighbor) - celexa ETOH abuse Fibromyalgia 05/22/20:saw pain psychologist, used mental control to ignore pains GERD (gastroesophageal reflux disease) aciphex Hematuria 2019 saw urology in [place] Hiatal hernia History of PTCA Dr Germain HTN (hypertension) lisinopril Hyperlipidemia lipitor Lung nodule 10/16/2014 6 mm - recheck at 1 yr and 2 yrs NEGATIVE HISTORY OF No pn,tb,ca,dm Spinal stenosis 1995 accident went to PT - neck, mid back, right leg, 10/09, percocet 05/03 tid - Dr Brooks (pain management) - tried fentayl, methadone Testicular lump s/p removal, benign - testosterone - Dr Valentine SURGICAL HISTORY PAST SURGICAL HISTORY Procedure Laterality Date APPENDECTOMY 1983 ARTHRP ACETBLR/PROX FEM PROSTC AGRFT/ALGRFT Right PAST SURGICAL HISTORY OF 2008 one coronary stent/heart cath with stent PAST SURGICAL HISTORY OF 09/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 Substance Use Topics Alcohol use: Not Currently Alcohol/week: 35.0 standard drinks Types: 14 Cans of Beer (12oz) per week Comment: 12 shots a day. Drug use: No FAMILY HISTORY FAMILY HISTORY Problem Relation Age of Onset other (back pain) Father neck spurs Heart Mother 45 NM, arthritis other (back pain) Brother None Sister x2, FM ALLERGIES ALLERGIES No Known Allergies REVIEW OF SYSTEMS: denies fevers, chills +weight gain, attributed to decreased physical activity +SMYTH Denies chest pain PHYSICAL EXAM: BP 159/108 Pulse 96 Ht 180.3 cm (5' 11 ) Wt 100.2 kg (220 lb 12.8 oz) SpO2 99% BMI 30.80 kg/m General appearance: Well appearing, alert, in no acute distress Head: Normocephalic, atraumatic. Neurological exam: Mental Status: Alert, oriented to person, place and time and Follows commands. Able to recite months of year backwards. Able to recall 2/3 words Cranial Nerves: visual tidwell intact to confrontation, extraocular movements intact, facial sensation intact, face symmetric, no facial droop or ptosis, hearing intact to finger rub bilaterally, no dysarthria and shoulder shrug intact and symmetric. Motor: Right Upper: Left Upper: Deltoid: 5 Deltoid: 5 Triceps: 5 Triceps: 5 Biceps: 5 Biceps: 5 Logistics Associate: 5 Logistics Associate: 5 Finger abduction: 5 Finger abduction: 5 Finger adduction: 5 Finger adduction: 5 Right Lower: Left Lower: Iliopsoas: 5 Iliopsoas: 5 Knee flexor: 5 Knee flexor: 5 Knee extensor: 5 Knee extensor: 5 Dorsiflexion: 5 Dorsiflexion: 5 Plantarflexion: 5 Plantarflexion: 5 Motor Tone: Right Upper: Normal tone Left Upper: Normal tone Right Lower: Normal tone Left Lower: Normal tone Reflexes: 2/4 biceps, brachioradialis, patellars Sensation: intact BUE to touch, temperature, vibration, proprioception Coordination: Finger-to- nose-finger intact bilaterally and [id number] intact bilaterally. Gait: normal-based. Independent tiptoe, heel gait. Unsteady tandem Romberg: neg DATA: 06/17/16 Carotid US RIGHT SIDE Internal carotid artery: 40-59% stenosis. Vertebral artery: Patent and antegrade flow noted. LEFT SIDE Internal carotid artery: 0-19% stenosis. Vertebral artery: Patent and antegrade flow noted. ASSESSMENT: 61 year old male with a history of HTN, CAD, R carotid stenosis (up to 59% on right), multiple head traumas who presents for follow-up re post-concussive syndrome. Course c/b incarceration for DUI. MRI brain with microvascular changes. EEG normal. PSG with moderate SUSANNAH for which patient has started CPAP. He has had overall improvement in headaches and cognitive symptoms though is still not back to baseline. He has also developed interval weight gain with SMYTH. PLAN: - continue elavil 50mg qhs for headaches - add vit B2 400mg daily for energy and headaches - updated carotid US for carotid stenosis - resume aspirin 81mg and atorvastatin 40mg for carotid stenosis - CXR for new SMYTH - check updated thyroid function for weight gain - fu 3mo I spent a total of 40 minutes on the date of the service which included preparing to see the patient, [id number] patient care, completing clinical documentation, obtaining and/or reviewing separately obtained history, performing a medically appropriate examination, counseling and educating the patient/family/caregiver, ordering medications, tests, or procedures, independently interpreting results (not separately reported) and communicating results to the patient/family/caregiver. Day Holman MD Staff, General Neurology Pager: [phone] CC: Referring Physician: SELF PCP: Rosa Robertson [id number] [place] [address] documented in this encounter [facility] 08-16-2021 Miscellaneous Notes Reason for call: Patient states has had shortness of breath for the past couple of months but it is worse today. States as he sits right now he feels short of breath. It is not just when going upstairs. Patient asking if he should go to the ER now or go tomorrow. Advised patient if he is truly feeling short of breath that he should not wait in receiving care and should go to the ER now. Outcome: Patient will go to the ER now. Reason for Disposition [1] MODERATE difficulty breathing (e.g., speaks in phrases, SOB even at rest, pulse 100-120) AND [2] NEW-onset or WORSE than normal Protocols used: BREATHING [id number] documented in this encounter [facility] 08-12-2021 History and physical note PROCEDURAL SEDATION HISTORY AND PHYSICAL EXAM SERVICE DATE: 08/12/2021 SERVICE TIME: 0732 Subjective HPI: This is a 61 year old male who presents for EGD for evaluation of dysphagia and for surveillance colonoscopy. PAST ANESTHESIA HISTORY: No history of adverse event PAST MEDICAL HISTORY Diagnosis Date Acquired hallux limitus of left foot Acute NM (HCC) 08/2007 angina - bare metal stent x1 - to see Dr Ortiz 08/30 Arthritis of right hip inj helps - needs THR, 06/15/17:insurance did not approve Back pain 10/14/2015 pain management rec CPRP - do not refill percocet - 07/08/17:send to [facility] Chronic pain of toe of left foot Depression zoloft spinning couldn't get going, prozac creating action (act on neighbor) - celexa ETOH abuse Fibromyalgia 05/22/20:saw pain psychologist, used mental control to ignore pains GERD (gastroesophageal reflux disease) aciphex Hematuria 2019 saw urology in [place] Hiatal hernia History of PTCA Dr Germain HTN (hypertension) lisinopril Hyperlipidemia lipitor Lung nodule 10/16/2014 6 mm - recheck at 1 yr and 2 yrs NEGATIVE HISTORY OF No pn,tb,ca,dm Spinal stenosis 1995 accident went to PT - neck, mid back, right leg, 10/09, percocet 1/2 tid - [address] Brooks (pain management) - tried fentayl, methadone Testicular lump s/p removal, benign - testosterone - Dr Valentine PAST SURGICAL HISTORY Procedure Laterality Date APPENDECTOMY 1983 ARTHRP ACETBLR/PROX FEM PROSTC AGRFT/ALGRFT Right PAST SURGICAL HISTORY OF 2008 one coronary stent/heart cath with stent PAST SURGICAL HISTORY OF 09/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 08/11/2021 at Unknown time Yes metoprolol succinate ER (TOPROL XL) 100 mg Take 1 tablet by mouth once daily. 08/11/2021 at Unknown time Yes albuterol HFA (PROAIR HFA) 90 mcg/actuation inhaler 2 Puffs every 4 hours as needed for wheezing/shortness of breath. Take as directed 08/11/2021 at Unknown time Yes lisinopril (ZESTRIL, PRINIVIL) 10 mg tablet Take 1 tablet by mouth once daily. 08/11/2021 at Unknown time Yes metoprolol succinate ER (TOPROL XL) 50 mg 24 hr tablet Take 1 tablet by mouth daily at bedtime. 08/11/2021 at Unknown time Yes naproxen (NAPROSYN) 500 mg tablet Take 1 tablet by mouth twice daily as needed (for pain). Take with food 08/11/2021 at Unknown time Yes citalopram (CELEXA) 40 mg tablet Take 1.5 tablets by mouth once daily. 08/11/2021 at Unknown time Yes aspirin, enteric coated (ECOTRIN LOW STRENGTH) 81 mg EC tablet Take 1 tablet by mouth once daily. 08/11/2021 at Unknown time Yes atorvastatin (LIPITOR) 40 mg tablet Take 1 tablet by mouth once daily. 08/11/2021 at Unknown time Yes CPAP New set up: AutoCPAP 5-15 cm H2O, mask (pt pref), filters, heated humidity & tubing. Lifetime supplies. SUSANNAH G47.33. amitriptyline (ELAVIL) 100 mg tablet Take 1 tablet by mouth daily at bedtime. amantadine HCl (SYMMETREL) 100 mg capsule Take 1 capsule by mouth once daily. testosterone cypionate (DEPO-TESTOSTERONE) 200 mg/mL injection INJECT 0.5 ml INTRAMUSCULARLY EVERY TEN days. ibuprofen (MOTRIN) 600 mg tablet Take 1 tablet by mouth every 8 hours as needed for Pain. Take with food. ALLERGIES No Known Allergies Objective Physical exam General appearance: Pleasant, NAD Cardiac: No murmurs Lungs: CTA Abdomen: Soft, NT, ND, BS+. Neuro: Ox3. Assessment/Plan ASA Class: Active Problems: * No active hospital problems. * Resolved Problems: * No resolved hospital problems. * Provisional Diagnosis/Treatment Plan: Dysphagia, history of colonic polyps/EGD, colonoscopy SIGNATURE: Jett Rangel MD PATIENT NAME: José Rojas DATE: August 12, 2021 TIME: 7:32 AM documented in this encounter [facility] 08-11-2021 Miscellaneous Notes Called pt and advised. okay to proceed with egd/colonoscopy No, patient states he really doesn't have SOB, he gets a little SOB going up stairs or when he bends over to tie his shoes, but recovers quickly, states he feels it's from the 30 lbs he has gained. He stated his pulse ox ranges from 95-96% on room air Patient was able to hold a conversation without being winded, no wheezing noted, no coughing. Patient would still like to have EGD/colonoscopy done on 08/12/21 to address his other issues? Did he go to ER for SOB, what was the outcome? Spoke with patient He states his pulse ox is running at 95-96% on room air Pt states he has gained 30 lbs within the last 6 mos. Patient states when he goes up the stairs, he gets a little short of breath, but recovers quickly. Patient feels that it is due to his weight gain, but feels confident about having the EGD/colonoscopy done, he wants to have it done. I would recommend reschedule it and he needs to be seen by a provider, or he needs to see his regional safety manager. Nj Desai MD Pt has an egd/colonoscopy scheduled for 08/12. Pt contacted nurse triage with shortness of breath and low sats today. Please advise if pt needs to have procedure cancelled and rescheduled documented in this encounter [facility] 08-07-2021 Miscellaneous Notes Gini, Patient did not log in for appointment. I called him at 3:05 pm to assist him. He was unable to input his password correctly and could not log on through [employer]. He was unable to use [employer]. Please call him to reschedule his appointment, possibly in person. He states he lives near [place]. Thank you, Siria Nina PA-C P[facility] documented in this encounter [facility] 08-07-2021 Miscellaneous Notes Ok. Called patient Informed patient that I will send the bowel prep instructions to his [facility] for review, and that the schedulers will contact him to schedule the colonoscopy. Spoke with PSS who will be contacting this patient to schedule him for procedure, she gave ok to close encounter out. Order filed. Please let him know. Patient states that he is overdue for colonoscopy - Please review and place orders, if appropriate. ----- Message from Stephany Bucio MD sent at 08/05/2021 9:33 PM EDT ----- Please convert to mac, patient received excess sedation at last procedure. Orders placed. Thanks Elenita Bucio MD documented in this encounter [facility] 08-06-2021 Instructions Genoveva Marrufo RN - 08/06/2021 12:11 PM EDT Images from the original note were not included. Bowel Preparation Instructions for: Golytely, Nulytely, Trilyte or Colyte (polyethylene glycol 3350 and electrolytes) IF YOU DO NOT FOLLOW THESE DIRECTIONS, YOUR COLONOSCOPY WILL BE CANCELLED. Dela Cruz Instructions: Your bowel must be empty so that your doctor can clearly view your colon. Follow all of the instructions in this handout EXACTLY as they are written. Do NOT eat any solid food the ENTIRE day before your colonoscopy. Drink only clear liquids. Buy your bowel preparation at least 5 days before your colonoscopy. TRANSPORTATION on the Day of Your Exam A responsible person MUST be present with you at Check In prior to your colonoscopy and REMAIN in the endoscopy area until you are discharged. You are NOT ALLOWED to drive, take a taxi or bus, or leave the Endoscopy Center ALONE. If you do not have a responsible interstate bus driver (family member or friend) with you to take you home, your exam cannot be done with sedation and will be cancelled. Please bring a list of all of your current medications, including any Over-the Counter medications with you. Medications If you take insulin, diabetic medications or blood thinners such as Coumadin (warfarin), Plavix (clopidogrel), Ticlid (ticlopidine hydrochloride), Agrylin (anagrelide), Xarelto (Rivaroxaban), Pradaxa (Dabigatran), Eliquis (Apixaban), and Effient (Prasugrel). You MUST call the doctors who orders those medicines for instructions on altering the dosage before your colonoscopy. All other medications should be taken the day of the exam with a sip of water including ASPIRIN. Five (5) Days Before Your Colonoscopy Do NOT take medicines that stop diarrhea - such as Imodium, Kaopectate, or Pepto Bismol. Do NOT take fiber supplements - such as Metamucil, Citrucel, or Perdiem. Do NOT take products that contain iron - such as multi-vitamins (the label lists what is in the products). Do NOT take Vitamin E. Buy the prescription bowel preparation solution at your local pharmacy or drugstore pharmacy. 04/2019 Bowel Preparation Instructions for: Golytely, Nulytely, Trilyte or Colyte (polyethylene glycol 3350 and electrolytes) Three (3) Days Before Your Colonoscopy Do NOT eat high-fiber foods - such as popcorn, beans, seeds (flax, sunflower, quinoa), multigrain bread, nuts, salad/vegetables, or fresh and dried fruit. One (1) Day Before Your Colonoscopy Only drink clear liquids the ENTIRE DAY before your colonoscopy. Do NOT eat any solid foods. Drink at least 8 ounces of clear liquids every hour after waking up. The clear liquids you can drink include: Clear Liquid (NO RED LIQUIDS) DO NOT DRINK Gatorade, Pedialyte or Powerade Clear broth or bouillon Coffee or tea (no milk or non-dairy creamer) Carbonated and non-carbonated soft drinks Juan M-Aid or other fruit flavored drinks Strained fruit juices (no pulp) Jell-O, popsicles, hard candy Water Alcohol Milk or non-dairy creamers Noodles or vegetables in soup Juice with pulp Liquid you cannot see through The bowel preparation solution will be consumed in two parts. Mix the solution the evening before your colonoscopy and refrigerate before drinking. You may add the flavor pack that came with the bowel preparation. Do NOT add ice, sugar or any other flavorings to the solution. Part 1 At 6:00 PM - Evening before your colonoscopy Drink an 8-oz glass of bowel preparation every 10 minutes for a total of 8 glasses. You may continue to drink clear liquids until midnight. Part 2 On the day of your colonoscopy you may drink clear liquids up to (three) 3 hours before your procedure. 4 1/2 hours before your colonoscopy Drink an 8-oz glass of bowel preparation every 10 minutes for a total of 8 glasses. Fifteen (15) minutes later, drink an 8-oz glass of clear liquids every 15 minutes for a total of 2 glasses. You may continue to drink clear liquids up to (three) 3 hours before your exam. 3 04/2019 documented in this encounter [facility] 08-05-2021 Instructions Cassandra Alvarado MD - 08/05/2021 2:37 PM EDT Go to ER for recurrent See cardiology for SOB EGD ordered Blood work prior to procedure fasting Glycerin for dry mouth documented in this encounter [facility] 08-05-2021 History of Present illness Narrative VIRTUAL VISIT PROGRESS NOTE This is a virtual visit using Alternative video platform. It required patient-provider interaction for the medical decision making as documented below. José Rojas is a 61 year old male seen for GI issues. Nausea and cough and gags , sore throat for one year, pantoprozole + heart burn No weight loss + dysphagia to solid or liquids H/o hiatal hernia Current weight 220 lbs 124/78 Stopped Lisinopril due to low BP and passed out 3 weeks ago Using CPAP Ringing in the ears C/O SOB, no chest pain, no leg swelling no cough. He has not seen cardiology in over a year HISTORY REVIEWED (electronic chart updated): PAST MEDICAL HISTORY Diagnosis Date Acquired hallux limitus of left foot Acute NM (HCC) 08/2007 angina - bare metal stent x1 - to see Dr Ortiz 08/30 Arthritis of right hip inj helps - needs THR, 06/15/17:insurance did not approve Back pain 10/14/2015 pain management rec CPRP - do not refill percocet - 07/08/17:send to [facility] Chronic pain of toe of left foot Depression zoloft spinning couldn't get going, prozac creating action (act on neighbor) - celexa ETOH abuse Fibromyalgia 05/22/20:saw pain psychologist, used mental control to ignore pains GERD (gastroesophageal reflux disease) aciphex Hematuria 2019 saw urology in [place] Hiatal hernia History of PTCA Dr Germain HTN (hypertension) lisinopril Hyperlipidemia lipitor Lung nodule 10/16/2014 6 mm - recheck at 1 yr and 2 yrs NEGATIVE HISTORY OF No pn,tb,ca,dm Spinal stenosis 1995 accident went to PT - neck, mid back, right leg, 10/09, percocet /2 tid - [address] Brooks (pain management) - tried fentayl, methadone Testicular lump s/p removal, benign - testosterone - Dr Valentine PAST SURGICAL HISTORY Procedure Laterality Date APPENDECTOMY 1983 ARTHRP ACETBLR/PROX FEM PROSTC AGRFT/ALGRFT Right PAST SURGICAL HISTORY OF 2008 one coronary stent/heart cath with stent PAST SURGICAL HISTORY OF 09/13 Adenomatoid tumor involving paratesticular PAST SURGICAL HISTORY OF colonoscopy PAST SURGICAL HISTORY OF Left arthroscopy left knee FAMILY HISTORY Problem Relation Age of Onset other (back pain) Father neck spurs Heart Mother 45 [place], arthritis other (back pain) Brother None Sister x2, FM Social History Tobacco Use Smoking status: Former Smoker Packs/day: 1.00 Years: 10.00 Pack years: 10.00 Types: Cigarettes Quit date: 12/2020 Years since quittin.5 Smokeless tobacco: Current User Tobacco comment: Off and on; quit October 2017 again. Substance Use Topics Alcohol use: Not Currently Alcohol/week: 35.0 standard drinks Types: 14 Cans of Beer (12oz) per week Comment: 12 shots a day. Drug use: No Current Outpatient Medications Medication Sig fluticasone (FLONASE) 50 mcg/actuation nasal spray use 2 (TWO) sprays IN EACH NOSTRIL DAILY AT BEDTIME CPAP New set up: AutoCPAP 5-15 cm H2O, mask (pt pref), filters, heated humidity & tubing. Lifetime supplies. [facility] G47.33. pant[address]ole DR (PROTONIX) 40 mg tablet Take 1 tablet by mouth once daily. metoprolol succinate ER (TOPROL XL) 100 mg Take 1 tablet by mouth once daily. amitriptyline (ELAVIL) 100 mg tablet Take 1 tablet by mouth daily at bedtime. amantadine HCl (SYMMETREL) 100 mg capsule Take 1 capsule by mouth once daily. albuterol HFA (PROAIR HFA) 90 mcg/actuation inhaler 2 Puffs every 4 hours as needed for wheezing/shortness of breath. Take as directed lisinopril (ZESTRIL, PRINIVIL) 10 mg tablet Take 1 tablet by mouth once daily. metoprolol succinate ER (TOPROL XL) 50 mg 24 hr tablet Take 1 tablet by mouth daily at bedtime. testosterone cypionate (DEPO-TESTOSTERONE) 200 mg/mL injection INJECT 0.5 ml INTRAMUSCULARLY EVERY TEN days. naproxen (NAPROSYN) 500 mg tablet Take 1 tablet by mouth twice daily as needed (for pain). Take with food ibuprofen (MOTRIN) 600 mg tablet Take 1 tablet by mouth every 8 hours as needed for Pain. Take with food. citalopram (CELEXA) 40 mg tablet Take 1.5 tablets by mouth once daily. aspirin, enteric coated (ECOTRIN LOW STRENGTH) 81 mg EC tablet Take 1 tablet by mouth once daily. atorvastatin (LIPITOR) 40 mg tablet Take 1 tablet by mouth once daily. Current Facility-Administered Medications Medication Dose Route Frequency perflutren lipid microspheres 1.3 mL in NaCl (PF) 0.9% 10 mL injection (DEFINITY) INTRAVENOUS DIRECTED PRN sodium chloride 0.9 % (flush) 10 mL (BD POSIFLUSH) 10 mL INTRAVENOUS DIRECTED PRN perflutren lipid microspheres 1.3 mL in NaCl (PF) 0.9% 10 mL injection (DEFINITY) INTRAVENOUS DIRECTED PRN sodium chloride 0.9 % (flush) 10 mL (BD POSIFLUSH) 10 mL INTRAVENOUS DIRECTED PRN ALLERGIES No Known Allergies REVIEW OF SYSTEMS: As noted in HPI PHYSICAL EXAMINATION: VIDEO EXAM: (if completed, performed via video enabled technology) GENERAL: alert and appropriate, in no distress, well-hydrated, well nourished and happy, smiling, interactive HEAD: normocephalic, no abnormality or lesion noted EYES: no injection and visual acuity is grossly normal ASSESSMENT: (K21.9) Gastroesophageal reflux disease without esophagitis (primary encounter diagnosis) (E66.9) Obesity, Class I, BMI 30-34.9 (R55) Syncope, unspecified syncope type (R06.02) Shortness of breath (I10) Essential hypertension (I21.9) Acute myocardial infarction, unspecified NM type, unspecified artery (HCC) PLAN: Advised to continue with pantoprazole 40 mg once daily and set up for EGD due to dysphagia to solid and liquid foods patient is agreeable with plan of care. Patient Instructions Go to ER for recurrent See cardiology for SOB EGD ordered Blood work prior to procedure fasting Glycerin for dry mouth I spent a total of 29 minutes on the date of the service which included preparing to see the patient, [id number] patient care and completing clinical documentation Cassandra Alvarado MD documented in this encounter [facility] 08-04-2021 History of Present illness Narrative CMN RECEIVED BY [employer] VIA FAX, COMPLETED, AND PLACED IN PROVIDER MAILBOX FOR SIGNATURE Benny Wallis 08/04/21 [employer] SENDING CMN: [facility] SIGNED AND DATED CMN, FAXED TO [employer] & CONFIRMATION PAGE RECEIVED: 08/04/21 documented in this encounter [facility] 05-23-2020 History of Present illness Narrative Radiology Service Progress Note PATIENT NAME: José Rojas DATE OF SERVICE: May 23, 2020 TIME: 9:57 AM PATIENT IDENTITY VERIFICATION COMPLETED USING TWO (2) IDENTIFIERS: Name and Date of confirmed by patient verbally. FALL SCREENING: Has the patient had 2 falls in the last year or 1 fall with injury or currently using an Ambulatory Assistive Device (Walker, Cane, Wheelchair, Crutches, etc.)? No PATIENT GENDER DATA: Male PATIENT RELEVANT IMPLANT DATA REVIEWED: Not Applicable RADIOLOGY DEPARTMENT: General X-ray: Exam(s) Completed: Pelvis X-Ray: Pelvis with Hip Right PERIPHERAL IV DATA: Not applicable SIGNED BY: RT Ernestina May 23, 2020 9:57 AM documented in this encounter [facility] 12-17-2019 History of Present illness Narrative Radiology Service Progress Note PATIENT NAME: José Rojas DATE OF SERVICE: December 17, 2019 TIME: 7:52 AM PATIENT IDENTITY VERIFICATION COMPLETED USING TWO (2) IDENTIFIERS: Name and Date of confirmed by patient verbally. FALL SCREENING: Has the patient had 2 falls in the last year or 1 fall with injury or currently using an Ambulatory Assistive Device (Walker, Cane, Wheelchair, Crutches, etc.)? No PATIENT GENDER DATA: Male PATIENT RELEVANT IMPLANT DATA REVIEWED: Yes RADIOLOGY DEPARTMENT: MR; Exam(s) Completed: Upper MSK: Elbow, right PERIPHERAL IV DATA: Not applicable SIGNED BY: Oscar Erwin December 17, 2019 7:52 AM documented in this encounter [facility] 12-11-2014 History of Past i llness Narrative Problem Noted Date Resolved Date Pain in both feet 12/11/2014 03/21/2018 Pain in joint, multiple sites 12/11/2014 Chronic pain 07/21/2010 12/27/2019 documented as of this encounter (statuses as of 08/04/2021) [facility]08-12[facility]2015 History of Past illness Narrative* Problem Noted Date Resolved Date Pain in both feet 12/11/2014 03/21/2018 Pain in joint, multiple sites 12/11/2014 Chronic pain 07/21/2010 12/27/2019 documented as of this encounter (statuses as of 08/05/2021) [address] History of Past illness Narrative* Problem Noted Date Resolved Date Pain in both feet 12/11/2014 03/21/2018 Pain in joint, multiple sites 12/11/2014 Chronic pain 07/21/2010 12/27/2019 documented as of this encounter (statuses as of 08/06/2021) [address]2015 History of Past illness Narrative* Problem Noted Date Resolved Date Pain in both feet 12/11/2014 03/21/2018 Pain in joint, multiple sites 12/11/2014 Chronic pain 07/21/2010 12/27/2019 documented as of this encounter (statuses as of 08/07/2021) [address]2015 History of Past illness Narrative* Problem Noted Date Resolved Date Pain in both feet 12/11/2014 03/21/2018 Pain in joint, multiple sites 12/11/2014 Chronic pain 07/21/2010 12/27/2019 documented as of this encounter (statuses as of 08/07/2021) [address]2015 History of Past illness Narrative* Problem Noted Date Resolved Date Pain in both feet 12/11/2014 03/21/2018 Pain in joint, multiple sites 12/11/2014 Chronic pain 07/21/2010 12/27/2019 documented as of this encounter (statuses as of 08/11/2021) [address]2015 History of Past illness Narrative* Problem Noted Date Resolved Date Pain in both feet 12/11/2014 03/21/2018 Pain in joint, multiple sites 12/11/2014 Chronic pain 07/21/2010 12/27/2019 documented as of this encounter (statuses as of 08/13/2021) [address]2015 History of Past illness Narrative* Problem Noted Date Resolved Date Pain in both feet 12/11/2014 03/21/2018 Pain in joint, multiple sites 12/11/2014 Chronic pain 07/21/2010 12/27/2019 documented as of this encounter (statuses as of 08/16/2021) [address]2015 History of Past illness Narrative* Problem Noted Date Resolved Date Pain in both feet 12/11/2014 03/21/2018 Pain in joint, multiple sites 12/11/2014 Chronic pain 07/21/2010 12/27/2019 documented as of this encounter (statuses as of 08/20/2021) [address]2015 History of Past illness Narrative* Problem Noted Date Resolved Date Pain in both feet 12/11/2014 03/21/2018 Pain in joint, multiple sites 12/11/2014 Chronic pain 07/21/2010 12/27/2019 documented as of this encounter (statuses as of 08/24/2021) [address]2015 History of Past illness Narrative* Problem Noted Date Resolved Date Pain in both feet 12/11/2014 03/21/2018 Pain in joint, multiple sites 12/11/2014 Chronic pain 07/21/2010 12/27/2019 documented as of this encounter (statuses as of 08/25/2021) [address]2015 History of Past illness Narrative* Problem Noted Date Resolved Date Pain in both feet 12/11/2014 03/21/2018 Pain in joint, multiple sites 12/11/2014 Chronic pain 07/21/2010 12/27/2019 documented as of this encounter (statuses as of 08/27/2021) [address]2015 History of Past illness Narrative* Problem Noted Date Resolved Date Pain in both feet 12/11/2014 03/21/2018 Pain in joint, multiple sites 12/11/2014 Chronic pain 07/21/2010 12/27/2019 documented as of this encounter (statuses as of 09/07/2021) [address]2015 History of Past illness Narrative* Problem Noted Date Resolved Date Pain in both feet 12/11/2014 03/21/2018 Pain in joint, multiple sites 12/11/2014 Chronic pain 07/21/2010 12/27/2019 documented as of this encounter (statuses as of 09/09/2021) [address]2015 History of Past illness Narrative* Problem Noted Date Resolved Date Pain in both feet 12/11/2014 03/21/2018 Pain in joint, multiple sites 12/11/2014 Chronic pain 07/21/2010 12/27/2019 documented as of this encounter (statuses as of 09/10/2021) [address]2015 History of Past illness Narrative* Problem Noted Date Resolved Date Pain in both feet 12/11/2014 03/21/2018 Pain in joint, multiple sites 12/11/2014 Chronic pain 07/21/2010 12/27/2019 documented as of this encounter (statuses as of 09/18/2021) [address]2015 History of Past illness Narrative* Problem Noted Date Resolved Date Pain in both feet 12/11/2014 03/21/2018 Pain in joint, multiple sites 12/11/2014 Chronic pain 07/21/2010 12/27/2019 documented as of this encounter (statuses as of 09/21/2021) [address]2015 History of Past illness Narrative* Problem Noted Date Resolved Date Pain in both feet 12/11/2014 03/21/2018 Pain in joint, multiple sites 12/11/2014 Chronic pain 07/21/2010 12/27/2019 documented as of this encounter (statuses as of 09/22/2021) [address]2015 History of Past illness Narrative* Problem Noted Date Resolved Date Pain in both feet 12/11/2014 03/21/2018 Pain in joint, multiple sites 12/11/2014 Chronic pain 07/21/2010 12/27/2019 documented as of this encounter (statuses as of 09/24/2021) [address]2015 History of Past illness Narrative* Problem Noted Date Resolved Date Pain in both feet 12/11/2014 03/21/2018 Pain in joint, multiple sites 12/11/2014 Chronic pain 07/21/2010 12/27/2019 documented as of this encounter (statuses as of 09/25/2021) [address]2015 History of Past illness Narrative* Problem Noted Date Resolved Date Pain in both feet 12/11/2014 03/21/2018 Pain in joint, multiple sites 12/11/2014 Chronic pain 07/21/2010 12/27/2019 documented as of this encounter (statuses as of 09/26/2021) [address]2015 History of Past illness Narrative* Problem Noted Date Resolved Date Pain in both feet 12/11/2014 03/21/2018 Pain in joint, multiple sites 12/11/2014 Chronic pain 07/21/2010 12/27/2019 documented as of this encounter (statuses as of 09/29/2021) [address]2015 History of Past illness Narrative* Problem Noted Date Resolved Date Pain in both feet 12/11/2014 03/21/2018 Pain in joint, multiple sites 12/11/2014 Chronic pain 07/21/2010 12/27/2019 documented as of this encounter (statuses as of 10/12/2021) [address]2015 History of Past illness Narrative* Problem Noted Date Resolved Date Pain in both feet 12/11/2014 03/21/2018 Pain in joint, multiple sites 12/11/2014 Chronic pain 07/21/2010 12/27/2019 documented as of this encounter (statuses as of 11/03/2021) [address]2015 History of Past illness Narrative* Problem Noted Date Resolved Date Pain in both feet 12/11/2014 03/21/2018 Pain in joint, multiple sites 12/11/2014 Chronic pain 07/21/2010 12/27/2019 documented as of this encounter (statuses as of 11/06/2021) [address]2015 History of Past illness Narrative* Problem Noted Date Resolved Date Pain in both feet 12/11/2014 03/21/2018 Pain in joint, multiple sites 12/11/2014 Chronic pain 07/21/2010 12/27/2019 documented as of this encounter (statuses as of 11/10/2021) [address]2015 History of Past illness Narrative* Problem Noted Date Resolved Date Pain in both feet 12/11/2014 03/21/2018 Pain in joint, multiple sites 12/11/2014 Chronic pain 07/21/2010 12/27/2019 documented as of this encounter (statuses as of 11/15/2021) [address]2015 History of Past illness Narrative* Problem Noted Date Resolved Date Pain in both feet 12/11/2014 03/21/2018 Pain in joint, multiple sites 12/11/2014 Chronic pain 07/21/2010 12/27/2019 documented as of this encounter (statuses as of 11/18/2021) [address]2015 History of Past illness Narrative* Problem Noted Date Resolved Date Pain in both feet 12/11/2014 03/21/2018 Pain in joint, multiple sites 12/11/2014 Chronic pain 07/21/2010 12/27/2019 documented as of this encounter (statuses as of 11/25/2021) [address]2015 History of Past illness Narrative* Problem Noted Date Resolved Date Pain in both feet 12/11/2014 03/21/2018 Pain in joint, multiple sites 12/11/2014 Chronic pain 07/21/2010 12/27/2019 documented as of this encounter (statuses as of 11/30/2021) [address]2015 History of Past illness Narrative* Problem Noted Date Resolved Date Pain in both feet 12/11/2014 03/21/2018 Pain in joint, multiple sites 12/11/2014 Chronic pain 07/21/2010 12/27/2019 documented as of this encounter (statuses as of 12/03/2021) [address]2015 History of Past illness Narrative* Problem Noted Date Resolved Date Pain in both feet 12/11/2014 03/21/2018 Pain in joint, multiple sites 12/11/2014 Chronic pain 07/21/2010 12/27/2019 documented as of this encounter (statuses as of 12/04/2021) [address]2015 History of Past illness Narrative* Problem Noted Date Resolved Date Pain in both feet 12/11/2014 03/21/2018 Pain in joint, multiple sites 12/11/2014 Chronic pain 07/21/2010 12/27/2019 documented as of this encounter (statuses as of 12/05/2021) [address]2015 History of Past illness Narrative* Problem Noted Date Resolved Date Pain in both feet 12/11/2014 03/21/2018 Pain in joint, multiple sites 12/11/2014 Chronic pain 07/21/2010 12/27/2019 documented as of this encounter (statuses as of 12/12/2021) [address]2015 History of Past illness Narrative* Problem Noted Date Resolved Date Pain in both feet 12/11/2014 03/21/2018 Pain in joint, multiple sites 12/11/2014 Chronic pain 07/21/2010 12/27/2019 documented as of this encounter (statuses as of 12/17/2021) [address]2015 History of Past illness Narrative* Problem Noted Date Resolved Date Pain in both feet 12/11/2014 03/21/2018 Pain in joint, multiple sites 12/11/2014 Chronic pain 07/21/2010 12/27/2019 documented as of this encounter (statuses as of 12/21/2021) [address]2015 History of Past illness Narrative* Problem Noted Date Resolved Date Pain in both feet 12/11/2014 03/21/2018 Pain in joint, multiple sites 12/11/2014 Chronic pain 07/21/2010 12/27/2019 documented as of this encounter (statuses as of 12/24/2021) [address]2015 History of Past illness Narrative* Problem Noted Date Resolved Date Pain in both feet 12/11/2014 03/21/2018 Pain in joint, multiple sites 12/11/2014 Chronic pain 07/21/2010 12/27/2019 documented as of this encounter (statuses as of 12/29/2021) [address]2015 History of Past illness Narrative* Problem Noted Date Resolved Date Pain in both feet 12/11/2014 03/21/2018 Pain in joint, multiple sites 12/11/2014 Chronic pain 07/21/2010 12/27/2019 documented as of this encounter (statuses as of 01/09/2022) [address]2015 History of Past illness Narrative* Problem Noted Date Resolved Date Pain in both feet 12/11/2014 03/21/2018 Pain in joint, multiple sites 12/11/2014 Chronic pain 07/21/2010 12/27/2019 documented as of this encounter (statuses as of 01/09/2022) [address]2015 History of Past illness Narrative* Problem Noted Date Resolved Date Pain in both feet 12/11/2014 03/21/2018 Pain in joint, multiple sites 12/11/2014 Chronic pain 07/21/2010 12/27/2019 documented as of this encounter (statuses as of 01/13/2022) [address]2015 History of Past illness Narrative* Problem Noted Date Resolved Date Pain in both feet 12/11/2014 03/21/2018 Pain in joint, multiple sites 12/11/2014 Chronic pain 07/21/2010 12/27/2019 documented as of this encounter (statuses as of 01/13/2022) [address]2015 History of Past illness Narrative* Problem Noted Date Resolved Date Pain in both feet 12/11/2014 03/21/2018 Pain in joint, multiple sites 12/11/2014 Chronic pain 07/21/2010 12/27/2019 documented as of this encounter (statuses as of 01/20/2022) [address]2015 History of Past illness Narrative* Problem Noted Date Resolved Date Pain in both feet 12/11/2014 03/21/2018 Pain in joint, multiple sites 12/11/2014 Chronic pain 07/21/2010 12/27/2019 documented as of this encounter (statuses as of 01/22/2022) [address]2015 History of Past illness Narrative* Problem Noted Date Resolved Date Pain in both feet 12/11/2014 03/21/2018 Pain in joint, multiple sites 12/11/2014 Chronic pain 07/21/2010 12/27/2019 documented as of this encounter (statuses as of 01/29/2022) [address]2015 History of Past illness Narrative* Problem Noted Date Resolved Date Pain in both feet 12/11/2014 03/21/2018 Pain in joint, multiple sites 12/11/2014 Chronic pain 07/21/2010 12/27/2019 documented as of this encounter (statuses as of 02/09/2022) [address]2015 History of Past illness Narrative* Problem Noted Date Resolved Date Pain in both feet 12/11/2014 03/21/2018 Pain in joint, multiple sites 12/11/2014 Chronic pain 07/21/2010 12/27/2019 documented as of this encounter (statuses as of 02/15/2022) [address]2015 History of Past illness Narrative* Problem Noted Date Resolved Date Pain in both feet 12/11/2014 03/21/2018 Pain in joint, multiple sites 12/11/2014 Chronic pain 07/21/2010 12/27/2019 documented as of this encounter (statuses as of 02/18/2022) [address]2015 History of Past illness Narrative* Problem Noted Date Resolved Date Pain in both feet 12/11/2014 03/21/2018 Pain in joint, multiple sites 12/11/2014 Chronic pain 07/21/2010 12/27/2019 documented as of this encounter (statuses as of 02/19/2022) [address]2015 History of Past illness Narrative* Problem Noted Date Resolved Date Pain in both feet 12/11/2014 03/21/2018 Pain in joint, multiple sites 12/11/2014 Chronic pain 07/21/2010 12/27/2019 documented as of this encounter (statuses as of 02/22/2022) [address]2015 History of Past illness Narrative* Problem Noted Date Resolved Date Pain in both feet 12/11/2014 03/21/2018 Pain in joint, multiple sites 12/11/2014 Chronic pain 07/21/2010 12/27/2019 documented as of this encounter (statuses as of 02/22/2022) [address]2015 History of Past illness Narrative* Problem Noted Date Resolved Date Pain in both feet 12/11/2014 03/21/2018 Pain in joint, multiple sites 12/11/2014 Chronic pain 07/21/2010 12/27/2019 documented as of this encounter (statuses as of 03/02/2022) [address]2015 History of Past illness Narrative* Problem Noted Date Resolved Date Pain in both feet 12/11/2014 03/21/2018 Pain in joint, multiple sites 12/11/2014 Chronic pain 07/21/2010 12/27/2019 documented as of this encounter (statuses as of 03/02/2022) [address]2015 History of Past illness Narrative* Problem Noted Date Resolved Date Pain in both feet 12/11/2014 03/21/2018 Pain in joint, multiple sites 12/11/2014 Chronic pain 07/21/2010 12/27/2019 documented as of this encounter (statuses as of 03/05/2022) [address]2015 History of Past illness Narrative* Problem Noted Date Resolved Date Pain in both feet 12/11/2014 03/21/2018 Pain in joint, multiple sites 12/11/2014 Chronic pain 07/21/2010 12/27/2019 documented as of this encounter (statuses as of 03/08/2022) [address]2015 History of Past illness Narrative* Problem Noted Date Resolved Date Pain in both feet 12/11/2014 03/21/2018 Pain in joint, multiple sites 12/11/2014 Chronic pain 07/21/2010 12/27/2019 documented as of this encounter (statuses as of 03/16/2022) [address]2015 History of Past illness Narrative* Problem Noted Date Resolved Date Pain in both feet 12/11/2014 03/21/2018 Pain in joint, multiple sites 12/11/2014 Chronic pain 07/21/2010 12/27/2019 documented as of this encounter (statuses as of 04/16/2022) [address]2015 History of Past illness Narrative* Problem Noted Date Resolved Date Pain in both feet 12/11/2014 03/21/2018 Pain in joint, multiple sites 12/11/2014 Chronic pain 07/21/2010 12/27/2019 documented as of this encounter (statuses as of 04/23/2022) [address]2015 History of Past illness Narrative* Problem Noted Date Resolved Date Pain in both feet 12/11/2014 03/21/2018 Pain in joint, multiple sites 12/11/2014 Chronic pain 07/21/2010 12/27/2019 documented as of this encounter (statuses as of 04/24/2022) [address]2015 History of Past illness Narrative* Problem Noted Date Resolved Date Pain in both feet 12/11/2014 03/21/2018 Pain in joint, multiple sites 12/11/2014 Chronic pain 07/21/2010 12/27/2019 documented as of this encounter (statuses as of 04/25/2022) [address]2015 History of Past illness Narrative* Problem Noted Date Resolved Date Pain in both feet 12/11/2014 03/21/2018 Pain in joint, multiple sites 12/11/2014 Chronic pain 07/21/2010 12/27/2019 documented as of this encounter (statuses as of 05/07/2022) [address] History of Past illness Narrative* Problem Noted Date Resolved Date Pain in both feet 12/11/2014 03/21/2018 Pain in joint, multiple sites 12/11/2014 Chronic pain 07/21/2010 12/27/2019 documented as of this encounter (statuses as of 05/07/2022) [address] History of Past illness Narrative* Problem Noted Date Resolved Date Pain in both feet 12/11/2014 03/21/2018 Pain in joint, multiple sites 12/11/2014 Chronic pain 07/21/2010 12/27/2019 documented as of this encounter (statuses as of 05/12/2022) [address] History of Past illness Narrative* Problem Noted Date Resolved Date Pain in both feet 12/11/2014 03/21/2018 Pain in joint, multiple sites 12/11/2014 Chronic pain 07/21/2010 12/27/2019 documented as of this encounter (statuses as of 05/13/2022) [address]2015 History of Past illness Narrative* Problem Noted Date Resolved Date Pain in both feet 12/11/2014 03/21/2018 Pain in joint, multiple sites 12/11/2014 Chronic pain 07/21/2010 12/27/2019 documented as of this encounter (statuses as of 05/31/2022) [address]2015 History of Past illness Narrative* Problem Noted Date Resolved Date Pain in both feet 12/11/2014 03/21/2018 Pain in joint, multiple sites 12/11/2014 Chronic pain 07/21/2010 12/27/2019 documented as of this encounter (statuses as of 06/04/2022) [address] History of Past illness Narrative* Problem Noted Date Resolved Date Pain in both feet 12/11/2014 03/21/2018 Pain in joint, multiple sites 12/11/2014 Chronic pain 07/21/2010 12/27/2019 documented as of this encounter (statuses as of 06/17/2022) [address] History of Past illness Narrative* Problem Noted Date Resolved Date Pain in both feet 12/11/2014 03/21/2018 Pain in joint, multiple sites 12/11/2014 Chronic pain 07/21/2010 12/27/2019 documented as of this encounter (statuses as of 06/30/2022) [address] History of Past illness Narrative* Problem Noted Date Resolved Date Pain in both feet 12/11/2014 03/21/2018 Pain in joint, multiple sites 12/11/2014 Chronic pain 07/21/2010 12/27/2019 documented as of this encounter (statuses as of 07/07/2022) [address]2015 History of Past illness Narrative* Problem Noted Date Resolved Date Pain in both feet 12/11/2014 03/21/2018 Pain in joint, multiple sites 12/11/2014 Chronic pain 07/21/2010 12/27/2019 documented as of this encounter (statuses as of 08/04/2022) [address] History of Past illness Narrative* Problem Noted Date Resolved Date Pain in both feet 12/11/2014 03/21/2018 Pain in joint, multiple sites 12/11/2014 Chronic pain 07/21/2010 12/27/2019 documented as of this encounter (statuses as of 10/21/2022) [address] History of Past illness Narrative* Problem Noted Date Diagnosed Date Resolved Date Pain in both feet 12/11/2014 03/21/2018 Pain in joint, multiple sites 12/11/2014 03/21/2018 Chronic pain 07/21/2010 12/27/2019 documented as of this encounter (statuses as of 11/17/2022) [address] History of Past illness Narrative* Problem Noted Date Diagnosed Date Resolved Date Pain in both feet 12/11/2014 03/21/2018 Pain in joint, multiple sites 12/11/2014 03/21/2018 Chronic pain 07/21/2010 12/27/2019 documented as of this encounter (statuses as of 11/22/2022) [address] History of Past illness Narrative* Problem Noted Date Diagnosed Date Resolved Date Pain in both feet 12/11/2014 03/21/2018 Pain in joint, multiple sites 12/11/2014 03/21/2018 Chronic pain 07/21/2010 12/27/2019 documented as of this encounter (statuses as of 12/02/2022) [address] History of Past illness Narrative* Problem Noted Date Diagnosed Date Resolved Date Pain in both feet 12/11/2014 03/21/2018 Pain in joint, multiple sites 12/11/2014 03/21/2018 Chronic pain 07/21/2010 12/27/2019 documented as of this encounter (statuses as of 12/03/2022) [address] History of Past illness Narrative* Problem Noted Date Diagnosed Date Resolved Date Pain in both feet 12/11/2014 03/21/2018 Pain in joint, multiple sites 12/11/2014 03/21/2018 Chronic pain 07/21/2010 12/27/2019 documented as of this encounter (statuses as of 12/06/2022) [address] History of Past illness Narrative* Problem Noted Date Diagnosed Date Resolved Date Pain in both feet 12/11/2014 03/21/2018 Pain in joint, multiple sites 12/11/2014 03/21/2018 Chronic pain 07/21/2010 12/27/2019 documented as of this encounter (statuses as of 12/07/2022) [address] History of Past illness Narrative* Problem Noted Date Diagnosed Date Resolved Date Pain in both feet 12/11/2014 03/21/2018 Pain in joint, multiple sites 12/11/2014 03/21/2018 Chronic pain 07/21/2010 12/27/2019 documented as of this encounter (statuses as of 12/08/2022) [address] History of Past illness Narrative* Problem Noted Date Diagnosed Date Resolved Date Pain in both feet 12/11/2014 03/21/2018 Pain in joint, multiple sites 12/11/2014 03/21/2018 Chronic pain 07/21/2010 12/27/2019 documented as of this encounter (statuses as of 12/10/2022) [address] History of Past illness Narrative* Problem Noted Date Diagnosed Date Resolved Date Pain in both feet 12/11/2014 03/21/2018 Pain in joint, multiple sites 12/11/2014 03/21/2018 Chronic pain 07/21/2010 12/27/2019 documented as of this encounter (statuses as of 12/10/2022) [address] History of Past illness Narrative* Problem Noted Date Diagnosed Date Resolved Date Pain in both feet 12/11/2014 03/21/2018 Pain in joint, multiple sites 12/11/2014 03/21/2018 Chronic pain 07/21/2010 12/27/2019 documented as of this encounter (statuses as of 12/10/2022) [address] History of Past illness Narrative* Problem Noted Date Diagnosed Date Resolved Date Pain in both feet 12/11/2014 03/21/2018 Pain in joint, multiple sites 12/11/2014 03/21/2018 Chronic pain 07/21/2010 12/27/2019 documented as of this encounter (statuses as of 12/13/2022) [address] History of Past illness Narrative* Problem Noted Date Diagnosed Date Resolved Date Pain in both feet 12/11/2014 03/21/2018 Pain in joint, multiple sites 12/11/2014 03/21/2018 Chronic pain 07/21/2010 12/27/2019 documented as of this encounter (statuses as of 12/21/2022) [address]12-2015 History of Past illness Narrative* Problem Noted Date Diagnosed Date Resolved Date Pain in both feet 12/11/2014 03/21/2018 Pain in joint, multiple sites 12/11/2014 03/21/2018 Chronic pain 07/21/2010 12/27/2019 documented as of this encounter (statuses as of 12/29/2022) [address]2015 History of Past illness Narrative* Problem Noted Date Diagnosed Date Resolved Date Pain in both feet 12/11/2014 03/21/2018 Pain in joint, multiple sites 12/11/2014 03/21/2018 Chronic pain 07/21/2010 12/27/2019 documented as of this encounter (statuses as of 01/08/2023) [address]-2015 History of Past illness Narrative* Problem Noted Date Diagnosed Date Resolved Date Pain in both feet 12/11/2014 03/21/2018 Pain in joint, multiple sites 12/11/2014 03/21/2018 Chronic pain 07/21/2010 12/27/2019 documented as of this encounter (statuses as of 01/10/2023) [address]-2015 History of Past illness Narrative* Problem Noted Date Diagnosed Date Resolved Date Pain in both feet 12/11/2014 03/21/2018 Pain in joint, multiple sites 12/11/2014 03/21/2018 Chronic pain 07/21/2010 12/27/2019 documented as of this encounter (statuses as of 01/19/2023) [address]2015 History of Past illness Narrative* Problem Noted Date Diagnosed Date Resolved Date Pain in both feet 12/11/2014 03/21/2018 Pain in joint, multiple sites 12/11/2014 03/21/2018 Chronic pain 07/21/2010 12/27/2019 documented as of this encounter (statuses as of 01/24/2023) [address]2015 History of Past illness Narrative* Problem Noted Date Diagnosed Date Resolved Date Pain in both feet 12/11/2014 03/21/2018 Pain in joint, multiple sites 12/11/2014 03/21/2018 Chronic pain 07/21/2010 12/27/2019 documented as of this encounter (statuses as of 02/05/2023) [address]2015 History of Past illness Narrative* Problem Noted Date Diagnosed Date Resolved Date Pain in both feet 12/11/2014 03/21/2018 Pain in joint, multiple sites 12/11/2014 03/21/2018 Chronic pain 07/21/2010 12/27/2019 documented as of this encounter (statuses as of 02/24/2023) [address]2015 History of Past illness Narrative* Problem Noted Date Diagnosed Date Resolved Date Pain in both feet 12/11/2014 03/21/2018 Pain in joint, multiple sites 12/11/2014 03/21/2018 Chronic pain 07/21/2010 12/27/2019 documented as of this encounter (statuses as of 03/05/2023) [address]2015 History of Past illness Narrative* Problem Noted Date Diagnosed Date Resolved Date Pain in both feet 12/11/2014 03/21/2018 Pain in joint, multiple sites 12/11/2014 03/21/2018 Chronic pain 07/21/2010 12/27/2019 documented as of this encounter (statuses as of 03/05/2023) [address]2015 History of Past illness Narrative* Problem Noted Date Diagnosed Date Resolved Date Pain in both feet 12/11/2014 03/21/2018 Pain in joint, multiple sites 12/11/2014 03/21/2018 Chronic pain 07/21/2010 12/27/2019 documented as of this encounter (statuses as of 03/05/2023) [address]2015 History of Past illness Narrative* Problem Noted Date Diagnosed Date Resolved Date Pain in both feet 12/11/2014 03/21/2018 Pain in joint, multiple sites 12/11/2014 03/21/2018 Chronic pain 07/21/2010 12/27/2019 documented as of this encounter (statuses as of 03/05/2023) [address]2015 History of Past illness Narrative* Problem Noted Date Diagnosed Date Resolved Date Pain in both feet 12/11/2014 03/21/2018 Pain in joint, multiple sites 12/11/2014 03/21/2018 Chronic pain 07/21/2010 12/27/2019 documented as of this encounter (statuses as of 04/01/2023) [address]2015 History of Past illness Narrative* Problem Noted Date Diagnosed Date Resolved Date Pain in both feet 12/11/2014 03/21/2018 Pain in joint, multiple sites 12/11/2014 03/21/2018 Chronic pain 07/21/2010 12/27/2019 documented as of this encounter (statuses as of 04/05/2023) [address]2015 History of Past illness Narrative* Problem Noted Date Diagnosed Date Resolved Date Pain in both feet 12/11/2014 03/21/2018 Pain in joint, multiple sites 12/11/2014 03/21/2018 Chronic pain 07/21/2010 12/27/2019 documented as of this encounter (statuses as of 04/05/2023) [address]2015 History of Past illness Narrative* Problem Noted Date Diagnosed Date Resolved Date Pain in both feet 12/11/2014 03/21/2018 Pain in joint, multiple sites 12/11/2014 03/21/2018 Chronic pain 07/21/2010 12/27/2019 documented as of this encounter (statuses as of 04/07/2023) [address]2015 History of Past illness Narrative* Problem Noted Date Diagnosed Date Resolved Date Pain in both feet 12/11/2014 03/21/2018 Pain in joint, multiple sites 12/11/2014 03/21/2018 Chronic pain 07/21/2010 12/27/2019 documented as of this encounter (statuses as of 06/05/2023) [address]2015 History of Past illness Narrative* Problem Noted Date Diagnosed Date Resolved Date Pain in both feet 12/11/2014 03/21/2018 Pain in joint, multiple sites 12/11/2014 03/21/2018 Chronic pain 07/21/2010 12/27/2019 documented as of this encounter (statuses as of 06/06/2023) [address]2015 History of Past illness Narrative* Problem Noted Date Diagnosed Date Resolved Date Pain in both feet 12/11/2014 03/21/2018 Pain in joint, multiple sites 12/11/2014 03/21/2018 Chronic pain 07/21/2010 12/27/2019 documented as of this encounter (statuses as of 06/19/2023) [address]2015 History of Past illness Narrative* Problem Noted Date Diagnosed Date Resolved Date Pain in both feet 12/11/2014 03/21/2018 Pain in joint, multiple sites 12/11/2014 03/21/2018 Chronic pain 07/21/2010 12/27/2019 documented as of this encounter (statuses as of 07/01/2023) [address]2015 History of Past illness Narrative* Problem Noted Date Diagnosed Date Resolved Date Pain in both feet 12/11/2014 03/21/2018 Pain in joint, multiple sites 12/11/2014 03/21/2018 Chronic pain 07/21/2010 12/27/2019 documented as of this encounter (statuses as of 07/04/2023) [address]2015 History of Past illness Narrative* Problem Noted Date Diagnosed Date Resolved Date Pain in both feet 12/11/2014 03/21/2018 Pain in joint, multiple sites 12/11/2014 03/21/2018 Chronic pain 07/21/2010 12/27/2019 documented as of this encounter (statuses as of 08/11/2023) [facility]08-12-2015 History of Past illness Narrative* Problem Noted Date Diagnosed Date Resolved Date Pain in both feet 12/11/2014 03/21/2018 Pain in joint, multiple sites 12/11/2014 03/21/2018 Chronic pain 07/21/2010 12/27/2019 documented as of this encounter (statuses as of 08/11/2023) [facility] Author Cayetano Lares [facility] November 18, 2022 6:44pm Note Date/Time November 18, 2022 6:[address] [facility] [address] [place] [address] General Surgery Consult Note Signed Patient: José Rojas MR#: [id number] : 1960 Acct:[id number] Age/Sex: 62 / M Adm Date: 3 Loc: ER Room: Type: [facility] ER Attending Dr: Copies to: DO Rosa Griffin MD Paul C Laffay, DO~ History of Present Illness Date of consult: 11/18/2022 History of present illness: Patient came to emergency department after he had been doing some chores at homeand he was standing on top of 2 chairs. This slipped out and he crushed 1 chairand landed with another in his upper mid left abdomen. He started develop severe pain overnight and he came to the emergency department in severe pain. He noticed some bruising in his abdomen. He is not having any vomiting but he does feel nauseous. He feels a little short of breath just with the abdominal distention. He is not having any fevers or chills. He is never had anything like this before. He feels very foolish about this accident. He has not been drinking any alcohol. Review of Systems Review of Systems All other systems reviewed & are negative unless noted below or in HPI [facility] Medical History (Updated 11/18/22 @ 18:43 by Cayetano Lares DO) Back pain Biceps muscle tear Concussion Hyperlipidemia Hypertension TBI (traumatic brain injury) Surgical History (Updated 11/18/22 @ 16:40 by Valery Brown RN) H/O shoulder surgery right History of hip replacement Left Hip Jun 2022 right hip Family History (Updated 08/10/22 @ 00:18 by Rosalia Godoy RN) Other No significant family history Social History Smoking Status: Current some day smoker Tobacco Type: cigarettes Substance Use Type: Alcohol Substance Abuse Comment: double shot Allergies & Medications Medications and Allergies Allergies No Known Allergies Allergy (Verified 09/23/21 16:41) Home Medications atorvastatin 80 mg tablet 40 mg PO HS 03/12/17 [History Confirmed 11/18/22] lisinopril 2.5 mg tablet 10 mg PO DAILY 03/12/17 [History Confirmed 11/18/22] testosterone undecanoate 750 mg/3 mL (250mg/mL) intramuscular solution 0.5 ml IMQ2W 03/12/17 [History Confirmed 11/18/22] aspirin 81 mg tablet 81 mg PO DAILY 08/24/20 [History Confirmed 11/18/22] citalopram 40 mg tablet 60 mg PO DAILY 08/24/20 [History Confirmed 11/18/22] fluticasone propionate 50 mcg/actuation nasal spray,suspension 2 spray intranasal QHS 08/24/20 [History Confirmed 11/18/22] metoprolol succinate 50 mg capsule sprinkle, ext. release 24 hr 50 mg PO DAILY 08/24/20 [History Confirmed 11/18/22] pantoprazole 40 mg tablet,delayed release 40 mg PO DAILY 08/24/20 [History Confirmed 11/18/22] pramipexole 0.125 mg tablet (Mirapex) 0.125 mg PO DAILY 08/24/20 [History Confirmed 11/18/22] rabeprazole 20 mg tablet,delayed release (AcipHex) 20 mg PO DAILY 08/24/20 [History Confirmed 11/18/22] amantadine HCl 100 mg capsule 100 mg PO DAILY 09/13/21 [History Confirmed 11/18/22] amitriptyline 50 mg tablet 50 mg PO DAILY 09/13/21 [History Confirmed 11/18/22] ascorbic acid (vitamin C) 1,000 mg tablet 1,000 mg PO DAILY 08/10/22 [History Confirmed 11/18/22] escitalopram oxalate 20 mg tablet 10 mg PO DAILY PRN Anxiety 08/10/22 [History Confirmed 11/18/22] ibuprofen 800 mg tablet 800 mg PO TID PRN Pain #20 tabs 08/10/22 [Rx Confirmed 11/18/22] Active Medications Sodium Chloride (0.9% Sodium Chloride 1,000 Ml) 1,000 mls @ 999 mls/hr IV .Q1H1M ONE Stop: 11/18/22 19:02 Last Admin: 11/18/22 18:16 Dose: 999 mls/hr Sodium Chloride (Sodium Chloride 0.9 % 10 Ml Syringe) 0 ml IV-PUSH PRN PRN PRN Reason: Flush Stop: 11/18/23 17:13 Last Admin: 11/18/22 17:40 Dose: 10 ml Exam Physical Exam Vital Signs: Temp Pulse Resp BP Pulse Ox O2 Del Method 98.3 F 134 H 16 189/121 H 96 Room Air 11/18/22 16:37 11/18/22 18:33 11/18/22 18:33 11/18/22 18:33 11/18/22 18:33 11/18/22 18:33 Narrative: Patient is mildly toxic in appearance. He is clammy. He is lucid, GCS 15. Head is atraumatic normocephalic. Eyes are without any scleral icterus. Neck no anterior posterior cervical lymphadenopathy. Heart is tachycardic, heart rate up to 140. Lungs are clear. Abdomen is considerably tensely distended with peritonitis on exam. He does have bruising showing a Bryan's sign around his umbilicus and towards his left flank. Extremities are without edema Results Pain Assessment Abdomen: Pain Description: Constant and Sharp Pain Intensity: 8 Intake and Output 24 hour I&O: Intake & Output 11/18/22 11/18/22 11/18/22 07:59 15:59 23:59 Intake Total 1000 / 1000 Balance 1000 / 1000 Weight 97.52 kg Labs 11/18/22 16:53 11/18/22 17:57 Laboratory Results - last 72 hr 11/18/22 17:57: Potassium 3.6, AST 73 H 11/18/22 17:41: POC Glucose 148 11/18/22 17:40: Urine Opiates Screen Negative, Ur Barbiturates Screen Negative, Ur Phencyclidine Scrn Negative, Ur Amphetamines Screen Negative, U Benzodiazepines Scrn Negative, Urine Cocaine Screen Negative, U Marijuana (THC) Screen Negative 11/18/22 16:53: Ethyl Alcohol < 10, % Ethyl Alcohol TNP 11/18/22 16:53: Total Creatine Kinase 82 11/18/22 16:53: PHA Creatinine Clear 137.56, Sodium 128 L, Potassium , Chloride 95 L, Carbon Dioxide 20.4 L, Anion Gap TNP, BUN 10, Creatinine 0.68 L, Est GFR (CKD- EPI) > 60.0, Glucose 139 H, AST , Amylase 36, Lipase 103.0 H 11/18/22 16:53: Corrected WBC 14.8 H, Uncorrected WBC Count 14.8 H, RBC 4.45, Hgb 14.5, Hct 41.0, MCV 92.1, MCH 32.5, MCHC 35.3, RDW 14.6, Plt Count 259, MPV 6.7, Neut % (Auto) 86.5, Lymph % (Auto) 8.7, Millard % (Auto) 4.1, Eos % (Auto) 0.2, Baso % (Auto) 0.5, Nucleat RBC Rel Count 0.2, Neut # (Auto) 12.8 H, Lymph #(Auto) 1.3, Millard # (Auto) 0.6, Eos # (Auto) 0.0, Baso # (Auto) 0.1, Monocyte Dist Width 20.12 H A&P - General Surgery (1) Acute traumatic pancreatitis: Plan: Patient's pancreas looks as if the distal 20% is lacerated or partially avulsed. He does have fluid surrounding that. No evidence of any splenic injury or other intra-abdominal injury with free air. Patient looks quite ill from this. I discussed with the emergency department, needs resuscitation. Needs transfer to a tertiary center that has pancreatic capability. Myself and my partners bijuno other local surgeons are doing any pancreatic surgery. He may require a distal pancreatectomy. May require stenting of his pancreas or other interventions. Patient understands and is amenable to transfer. Code(s): K85.80 - Other acute pancreatitis without necrosis or infection Status: Acute (2) Pancreatic injury: Code(s): S36.209A - Unspecified injury of unspecified part of pancreas, initial encounter Status: Acute (3) Peritonitis: Code(s): K65.9 - Peritonitis, unspecified Status: Acute Documented By: Cayetano Lares DO 11/18/22 1840 Signed By: <Electronically signed by DO Cayetano Lares> 11/18/22 1844 [facility] Work Phone: Evaluation note* Diagnosis Gastroesophageal reflux disease without esophagitis- Primary Esophageal reflux Obesity, Class I, BMI 30-34.9 Obesity, unspecified Syncope, unspecified syncope type Shortness of breath Essential hypertension Unspecified essential hypertension Acute myocardial infarction, unspecified NM type, unspecified artery (HCC) [facility]* Diagnosis Gastroesophageal reflux disease without esophagitis- Primary Esophageal reflux [facility] Diagnosis Screening for colon cancer- Primary Special screening for malignant neoplasms, colon History of colonic polyps Personal history of colonic polyps [facility] Diagnosis Gastroesophageal reflux disease without esophagitis Esophageal reflux Screening for colon cancer Special screening for malignant neoplasms, colon History of colonic polyps Personal history of colonic polyps [facility] Diagnosis Post concussive syndrome- Primary Postconcussion syndrome SOB (shortness of breath) Shortness of breath Abnormal carotid ultrasound Other nonspecific (abnormal) findings on radiological and other examinations of body structure Weight gain Abnormal weight gain Stenosis of right carotid artery Occlusion and stenosis of carotid artery without mention of cerebral infarction [facility] Diagnosis Abnormal carotid ultrasound Other nonspecific (abnormal) findings on radiological and other examinations of body structure [facility] Diagnosis Routine physical examination- Primary Routine general medical examination at a health care facility SOB (shortness of breath) Shortness of breath Weight gain Abnormal weight gain Anxiety Anxiety state, unspecified Low testosterone Other testicular hypofunction [facility]* Diagnosis Arthritis of carpometacarpal (CMC) joint of both thumbs- Primary [facility]* Diagnosis Cough- Primary Viral syndrome Unspecified viral infection, in conditions classified elsewhere and of unspecified site [facility] Diagnosis Hypogonadism in male- Primary Mixed hyperlipidemia Alcohol abuse Alcohol abuse, unspecified Class 1 obesity with body mass index (BMI) of 30.0 to 30.9 in adult, unspecified obesity type, unspecified whether serious comorbidity present [facility]* Diagnosis Cough- Primary Hoarseness Dysphonia Throat congestion Other symptoms involving head and neck Hypertension, unspecified type Hypertriglyceridemia Pure hyperglyceridemia Testosterone deficiency Other testicular hypofunction [facility] Diagnosis Hypertriglyceridemia Pure hyperglyceridemia [facility] Diagnosis Primary osteoarthritis of left knee- Primary Primary localized osteoarthrosis, lower leg [facility] Diagnosis Chronic post concussive encephalopathy- Primary Postconcussion syndrome Chronic post-traumatic headache, not intractable Chronic post-traumatic headache [facility]* Diagnosis Swallowing pain- Primary Dysphagia, unspecified Loss of voice Aphonia Breathing problem Respiratory abnormality, unspecified [facility] Diagnosis Primary osteoarthritis of left knee- Primary Primary localized osteoarthrosis, lower leg [facility] Diagnosis Cough Pain Generalized pain [facility]* Diagnosis Dysphonia- Primary Swallowing pain Dysphagia, unspecified Loss of voice Aphonia Illicit drug use Other, mixed, or unspecified nondependent drug abuse, unspecified Oropharyngeal dysphagia Dysphagia, oropharyngeal phase Alcohol abuse Alcohol abuse, unspecified documented in this encounter [facility] note* Diagnosis Misuse of drugs- Primary Other, mixed, or unspecified nondependent drug abuse, unspecified Cervicalgia Dysphonia Oropharyngeal dysphagia Dysphagia, oropharyngeal phase LPRD (laryngopharyngeal reflux disease) Other diseases of larynx Globus sensation Gastrointestinal malfunction arising from mental factors Lesion of vocal fold Other diseases of vocal cords Vocal cord nodule Other diseases of vocal cords Gastroesophageal reflux disease without esophagitis Esophageal reflux [facility]* Diagnosis Hallux limitus, right- Primary Pain in right foot Pain in limb [facility]* Diagnosis Pre-op evaluation- Primary Preoperative examination, unspecified Mixed hyperlipidemia Heart palpitations Palpitations 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) Acute myocardial infarction, unspecified NM type, unspecified artery (HCC) Lung nodule Solitary pulmonary nodule Gastroesophageal reflux disease without esophagitis Esophageal reflux Primary hypertension Unspecified essential hypertension Sleep apnea, unspecified type Cigarette nicotine dependence without complication Tobacco use disorder Hallux rigidus, right foot [facility]* Diagnosis Surgical follow-up care- Primary Follow-up examination, following unspecified surgery [facility] Diagnosis Surgical follow-up care- Primary Follow-up examination, following unspecified surgery documented in this encounter [facility] note* Diagnosis Tobacco use disorder Tobacco use Tobacco use disorder documented in this encounter [facility] note* Diagnosis Surgical follow-up care- Primary Follow-up examination, following unspecified surgery documented in this encounter [facility] note* Diagnosis Chest pain, unspecified type- Primary Shortness of breath Anxiety Anxiety state, unspecified Hypertension, unspecified type Tachycardia Tachycardia, unspecified documented in this encounter [facility] note* Diagnosis Post-concussion headache- Primary Post-traumatic headache, unspecified documented in this encounter [facility] note* Diagnosis Anxiety- Primary Anxiety state, unspecified SOB (shortness of breath) Shortness of breath documented in this encounter [facility] note* Diagnosis Cough Hoarseness Dysphonia Throat congestion Other symptoms involving head and neck documented in this encounter [facility] note* Diagnosis Nonintractable headache, unspecified chronicity pattern, unspecified headache type- Primary Hip pain Pain in joint, pelvic region and thigh Anxiety Anxiety state, unspecified documented in this encounter [facility] note* Diagnosis Primary osteoarthritis of left hip- Primary Primary localized osteoarthrosis, pelvic region and thigh Overweight (BMI 25.0-29.9) Overweight documented in this encounter [facility] note* Diagnosis Gastroesophageal reflux disease without esophagitis Esophageal reflux documented in this encounter [facility] note* Diagnosis Intractable chronic migraine without aura and without status migrainosus- Primary Chronic migraine without aura, with intractable migraine, so stated, without mention of status migrainosus Post-concussion headache Post-traumatic headache, unspecified Chronic pain syndrome documented in this encounter [facility] note* Diagnosis Pain Generalized pain documented in this encounter [facility] [employer] [facility] Work Phone: evaluation note* Diagnosis Status post total hip replacement, left documented in this encounter [facility] [employer] [facility] Work Phone: evaluation noteNo assessment information available [facility] Work Phone: Evaluation note* Diagnosis Hypertriglyceridemia Pure hyperglyceridemia documented in this encounter [facility] note* Diagnosis Alcohol-induced acute pancreatitis, unspecified complication status- Primary Delirium tremens (HCC) Alcohol withdrawal delirium Alcohol-induced acute pancreatitis, unspecified complication status Tachycardia, unspecified Abnormal electrocardiogram (ECG) (EKG) Fatty liver Other chronic nonalcoholic liver disease High triglycerides Pure hyperglyceridemia Delirium tremens (HCC) Alcohol withdrawal delirium Fatty liver Other chronic nonalcoholic liver disease [facility] Diagnosis Chronic pancreatitis, unspecified pancreatitis type (HCC)- Primary Hypertriglyceridemia Pure hyperglyceridemia [facility] Diagnosis Chronic pancreatitis, unspecified pancreatitis type (HCC)- Primary Hypertriglyceridemia Pure hyperglyceridemia [facility] Diagnosis Extensor tendon laceration of left hand with open wound, initial encounter- Primary documented in this encounter [facility] note* Diagnosis Other specified injury of extensor muscle, fascia and tendon of left thumb at wrist and hand level, initial encounter- Primary Other specified injury of extensor muscle, fascia and tendon of left thumb at wrist and hand level, initial encounter documented in this encounter [facility] note* Diagnosis Pre-op exam- Primary Preoperative examination, unspecified 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) Acute myocardial infarction, unspecified NM type, unspecified artery (HCC) Primary hypertension Unspecified essential hypertension Mixed hyperlipidemia Heart palpitations Palpitations Cigarette nicotine dependence without complication Tobacco use disorder Sleep apnea, unspecified type Gastroesophageal reflux disease without esophagitis Esophageal reflux Fibromyalgia Mylagia and myositis, unspecified History of alcohol abuse Nondependent alcohol abuse, in remission Alcohol-induced acute pancreatitis, unspecified complication status Other specified injury of extensor muscle, fascia and tendon of left thumb at wrist and hand level, initial encounter [facility]* Diagnosis Low back pain with right-sided sciatica, unspecified back pain laterality, unspecified chronicity Neck pain Cervicalgia Other specified injury of extensor muscle, fascia and tendon of left thumb at wrist and hand level, initial encounter documented in this encounter [facility] note* Diagnosis SOB (shortness of breath) Shortness of breath Other specified injury of extensor muscle, fascia and tendon of left thumb at wrist and hand level, initial encounter documented in this encounter [facility] note* Diagnosis Other specified injury of extensor muscle, fascia and tendon of left thumb at wrist and hand level, initial encounter- Primary documented in this encounter [facility] note* Diagnosis NO SHOW- Primary documented in this encounter [facility] note* Diagnosis Post-operative state- Primary Other postprocedural status Other specified injury of extensor muscle, fascia and tendon of left thumb at wrist and hand level, initial encounter documented in this encounter [facility] note* Diagnosis Foot pain, bilateral- Primary Pain in limb Calcaneal spur, unspecified laterality Osteoarthritis, unspecified osteoarthritis type, unspecified site Plantar fasciitis Plantar fascial fibromatosis History of rupture of Achilles tendon documented in this encounter [facility] note* Diagnosis Surgery follow-up Follow-up examination, following unspecified surgery [facility]* Diagnosis Pain Generalized pain documented [facility]* Diagnosis Surgical follow-up care Follow-up examination, following unspecified surgery documented in this encounter [facility] note* Diagnosis Post-operative pain Other acute postoperative pain documented in this encounter [facility] note* Diagnosis Anxiety Anxiety state, unspecified SOB (shortness of breath) Shortness of breath documented in this encounter [facility] note* Diagnosis Depression with anxiety- Primary Dysthymic disorder documented [facility]* Diagnosis Anxiety Anxiety state, unspecified SOB (shortness of breath) Shortness of breath documented in this encounter [facility] note* Diagnosis Arthritis of carpometacarpal (CMC) joint of both thumbs- Primary [facility]* Diagnosis Primary insomnia- Primary Persistent disorder of initiating or maintaining sleep documented in this encounter [facility] note* Diagnosis Gastroesophageal reflux disease without esophagitis Esophageal reflux documented in this encounter [facility] note* Diagnosis Anxiety Anxiety state, unspecified SOB (shortness of breath) Shortness of breath documented in this encounter [facility] note* Diagnosis Hip pain Pain in joint, pelvic region and thigh documented in this encounter [facility] note* Diagnosis Primary arthrosis of first carpometacarpal joints, bilateral- Primary Primary localized osteoarthrosis, hand documented in this encounter [facility] note* Diagnosis Primary arthrosis of first carpometacarpal joints, bilateral- Primary Primary localized osteoarthrosis, hand documented [facility]* Diagnosis Primary arthrosis of first carpometacarpal joints, bilateral- Primary Primary localized osteoarthrosis, hand Primary arthrosis of first carpometacarpal joints, bilateral Primary localized osteoarthrosis, hand [facility] Primary arthrosis of first carpometacarpal joints, bilateral- Primary Primary localized osteoarthrosis, hand Primary arthrosis of first carpometacarpal joints, bilateral Primary localized osteoarthrosis, hand Primary arthrosis of first carpometacarpal joints, bilateral Primary localized osteoarthrosis, hand [facility] Diagnosis Primary arthrosis of first carpometacarpal joints, bilateral Primary localized osteoarthrosis, hand Primary arthrosis of first carpometacarpal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 left foot Other acquired deformity of toe Pain in toe of left foot Pain in limb Essential hypertension Unspecified essential hypertension Acute myocardial infarction, unspecified NM type, unspecified artery (HCC) Other chest pain Heart palpitations Palpitations Gastroesophageal reflux disease without esophagitis Esophageal reflux Lung nodule Solitary pulmonary nodule Mixed hyperlipidemia Fibromyalgia Mylagia and myositis, unspecified Pre-op evaluation- Primary Preoperative examination, unspecified Mixed hyperlipidemia Heart palpitations Palpitations 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) Acute myocardial infarction, unspecified NM type, unspecified artery (HCC) Lung nodule Solitary pulmonary nodule Gastroesophageal reflux disease without esophagitis Esophageal reflux Primary hypertension Unspecified essential hypertension Sleep apnea, unspecified type Cigarette nicotine dependence without complication Tobacco use disorder Pre-op examination- Primary Preoperative examination, unspecified Primary arthrosis of first carpometacarpal joints, bilateral Primary localized osteoarthrosis, hand Mixed hyperlipidemia 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) Heart palpitations Palpitations Sleep apnea, unspecified type Cigarette nicotine dependence without complication Tobacco use disorder Gastroesophageal reflux disease without esophagitis Esophageal reflux Primary hypertension Unspecified essential hypertension Cervicalgia Concussion with loss of consciousness, subsequent encounter History of alcohol abuse Nondependent alcohol abuse, 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 Postoperative state Other postprocedural status Primary arthrosis of first carpometacarpal joints, bilateral Primary localized osteoarthrosis, hand documented [facility] this [facility] Diagnosis Pre-op exam- Primary Preoperative examination, unspecified Acquired hallux limitus of left foot Other acquired deformity of toe Pain in toe of left foot Pain in limb Essential hypertension Unspecified essential hypertension Acute myocardial infarction, unspecified NM type, unspecified artery (HCC) Other chest pain Heart palpitations Palpitations Gastroesophageal reflux disease without esophagitis Esophageal reflux Lung nodule Solitary pulmonary nodule Mixed hyperlipidemia Fibromyalgia Mylagia and myositis, unspecified Pre-op evaluation- Primary Preoperative examination, unspecified Mixed hyperlipidemia Heart palpitations Palpitations 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) Acute myocardial infarction, unspecified NM type, unspecified artery (HCC) Lung nodule Solitary pulmonary nodule Gastroesophageal reflux disease without esophagitis Esophageal reflux Primary hypertension Unspecified essential hypertension Sleep apnea, unspecified type Cigarette nicotine dependence without complication Tobacco use disorder Pre-op examination- Primary Preoperative examination, unspecified Primary arthrosis of first carpometacarpal joints, bilateral Primary localized osteoarthrosis, hand Mixed hyperlipidemia 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) Heart palpitations Palpitations Sleep apnea, unspecified type Cigarette nicotine dependence without complication Tobacco use disorder Gastroesophageal reflux disease without esophagitis Esophageal reflux Primary hypertension Unspecified essential hypertension Cervicalgia Concussion with loss of consciousness, subsequent encounter History of alcohol abuse Nondependent alcohol abuse, 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 Postoperative state Other postprocedural status Primary arthrosis of first carpometacarpal joints, bilateral Primary localized osteoarthrosis, hand documented [facility] this [facility] Diagnosis Pre-op exam- Primary Preoperative examination, unspecified Acquired hallux limitus of left foot Other acquired deformity of toe Pain in toe of left foot Pain in limb Essential hypertension Unspecified essential hypertension Acute myocardial infarction, unspecified NM type, unspecified artery (HCC) Other chest pain Heart palpitations Palpitations Gastroesophageal reflux disease without esophagitis Esophageal reflux Lung nodule Solitary pulmonary nodule Mixed hyperlipidemia Fibromyalgia Mylagia and myositis, unspecified Pre-op evaluation- Primary Preoperative examination, unspecified Mixed hyperlipidemia Heart palpitations Palpitations 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) Acute myocardial infarction, unspecified NM type, unspecified artery (HCC) Lung nodule Solitary pulmonary nodule Gastroesophageal reflux disease without esophagitis Esophageal reflux Primary hypertension Unspecified essential hypertension Sleep apnea, unspecified type Cigarette nicotine dependence without complication Tobacco use disorder Pre-op examination- Primary Preoperative examination, unspecified Primary arthrosis of first carpometacarpal joints, bilateral Primary localized osteoarthrosis, hand Mixed hyperlipidemia 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) Heart palpitations Palpitations Sleep apnea, unspecified type Cigarette nicotine dependence without complication Tobacco use disorder Gastroesophageal reflux disease without esophagitis Esophageal reflux Primary hypertension Unspecified essential hypertension Cervicalgia Concussion with loss of consciousness, subsequent encounter History of alcohol abuse Nondependent alcohol abuse, 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 Postoperative state- Primary Other postprocedural status Primary osteoarthritis of first carpometacarpal joint of right hand Primary localized osteoarthrosis, hand Primary arthrosis of first carpometacarpal joints, bilateral Primary localized osteoarthrosis, hand documented [facility] Diagnosis Pre-op exam- Primary Preoperative examination, unspecified Acquired hallux limitus of left foot Other acquired deformity of toe Pain in toe of left foot Pain in limb Essential hypertension Unspecified essential hypertension Acute myocardial infarction, unspecified NM type, unspecified artery (HCC) Other chest pain Heart palpitations Palpitations Gastroesophageal reflux disease without esophagitis Esophageal reflux Lung nodule Solitary pulmonary nodule Mixed hyperlipidemia Fibromyalgia Mylagia and myositis, unspecified Pre-op evaluation- Primary Preoperative examination, unspecified Mixed hyperlipidemia Heart palpitations Palpitations 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) Acute myocardial infarction, unspecified NM type, unspecified artery (HCC) Lung nodule Solitary pulmonary nodule Gastroesophageal reflux disease without esophagitis Esophageal reflux Primary hypertension Unspecified essential hypertension Sleep apnea, unspecified type Cigarette nicotine dependence without complication Tobacco use disorder Pre-op examination- Primary Preoperative examination, unspecified Primary arthrosis of first carpometacarpal joints, bilateral Primary localized osteoarthrosis, hand Mixed hyperlipidemia 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) Heart palpitations Palpitations Sleep apnea, unspecified type Cigarette nicotine dependence without complication Tobacco use disorder Gastroesophageal reflux disease without esophagitis Esophageal reflux Primary hypertension Unspecified essential hypertension Cervicalgia Concussion with loss of consciousness, subsequent encounter History of alcohol abuse Nondependent alcohol abuse, 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 Postoperative state- Primary Other postprocedural status Primary arthrosis of first carpometacarpal joints, bilateral Primary localized osteoarthrosis, hand documented in this [facility] Diagnosis Pre-op exam- Primary Preoperative examination, unspecified Acquired hallux limitus of left foot Other acquired deformity of toe Pain in toe of left foot Pain in limb Essential hypertension Unspecified essential hypertension Acute myocardial infarction, unspecified NM type, unspecified artery (HCC) Other chest pain Heart palpitations Palpitations Gastroesophageal reflux disease without esophagitis Esophageal reflux Lung nodule Solitary pulmonary nodule Mixed hyperlipidemia Fibromyalgia Mylagia and myositis, unspecified Pre-op evaluation- Primary Preoperative examination, unspecified Mixed hyperlipidemia Heart palpitations Palpitations 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) Acute myocardial infarction, unspecified NM type, unspecified artery (HCC) Lung nodule Solitary pulmonary nodule Gastroesophageal reflux disease without esophagitis Esophageal reflux Primary hypertension Unspecified essential hypertension Sleep apnea, unspecified type Cigarette nicotine dependence without complication Tobacco use disorder Pre-op examination- Primary Preoperative examination, unspecified Primary arthrosis of first carpometacarpal joints, bilateral Primary localized osteoarthrosis, hand Mixed hyperlipidemia 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) Heart palpitations Palpitations Sleep apnea, unspecified type Cigarette nicotine dependence without complication Tobacco use disorder Gastroesophageal reflux disease without esophagitis Esophageal reflux Primary hypertension Unspecified essential hypertension Cervicalgia Concussion with loss of consciousness, subsequent encounter History of alcohol abuse Nondependent alcohol abuse, 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 Pain in left wrist- Primary Pain in joint, forearm Thumb pain, left Limited joint range of motion Other symptoms referable to joint, site unspecified Primary arthrosis of first carpometacarpal joints, bilateral Primary localized osteoarthrosis, hand documented in this encounter [facility] Diagnosis Pre-op exam- Primary Preoperative examination, unspecified Acquired hallux limitus of left foot Other acquired deformity of toe Pain in toe of left foot Pain in limb Essential hypertension Unspecified essential hypertension Acute myocardial infarction, unspecified NM type, unspecified artery (HCC) Other chest pain Heart palpitations Palpitations Gastroesophageal reflux disease without esophagitis Esophageal reflux Lung nodule Solitary pulmonary nodule Mixed hyperlipidemia Fibromyalgia Mylagia and myositis, unspecified Pre-op evaluation- Primary Preoperative examination, unspecified Mixed hyperlipidemia Heart palpitations Palpitations 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) Acute myocardial infarction, unspecified NM type, unspecified artery (HCC) Lung nodule Solitary pulmonary nodule Gastroesophageal reflux disease without esophagitis Esophageal reflux Primary hypertension Unspecified essential hypertension Sleep apnea, unspecified type Cigarette nicotine dependence without complication Tobacco use disorder Pre-op examination- Primary Preoperative examination, unspecified Primary arthrosis of first carpometacarpal joints, bilateral Primary localized osteoarthrosis, hand Mixed hyperlipidemia 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) Heart palpitations Palpitations Sleep apnea, unspecified type Cigarette nicotine dependence without complication Tobacco use disorder Gastroesophageal reflux disease without esophagitis Esophageal reflux Primary hypertension Unspecified essential hypertension Cervicalgia Concussion with loss of consciousness, subsequent encounter History of alcohol abuse Nondependent alcohol abuse, 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 Post-operative state Other postprocedural status Primary arthrosis of first carpometacarpal joints, bilateral Primary localized osteoarthrosis, hand [facility] Diagnosis Pre-op exam- Primary Preoperative examination, unspecified Acquired hallux limitus of left foot Other acquired deformity of toe Pain in toe of left foot Pain in limb Essential hypertension Unspecified essential hypertension Acute myocardial infarction, unspecified NM type, unspecified artery (HCC) Other chest pain Heart palpitations Palpitations Gastroesophageal reflux disease without esophagitis Esophageal reflux Lung nodule Solitary pulmonary nodule Mixed hyperlipidemia Fibromyalgia Mylagia and myositis, unspecified Pain Generalized pain Pre-op evaluation- Primary Preoperative examination, unspecified Mixed hyperlipidemia Heart palpitations Palpitations 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) Acute myocardial infarction, unspecified NM type, unspecified artery (HCC) Lung nodule Solitary pulmonary nodule Gastroesophageal reflux disease without esophagitis Esophageal reflux Primary hypertension Unspecified essential hypertension Sleep apnea, unspecified type Cigarette nicotine dependence without complication Tobacco use disorder Pre-op examination- Primary Preoperative examination, unspecified Primary arthrosis of first carpometacarpal joints, bilateral Primary localized osteoarthrosis, hand Mixed hyperlipidemia 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) Heart palpitations Palpitations Sleep apnea, unspecified type Cigarette nicotine dependence without complication Tobacco use disorder Gastroesophageal reflux disease without esophagitis Esophageal reflux Primary hypertension Unspecified essential hypertension Cervicalgia Concussion with loss of consciousness, subsequent encounter History of alcohol abuse Nondependent alcohol abuse, 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 Primary arthrosis of first carpometacarpal joints, bilateral Primary localized osteoarthrosis, hand documented [facility] this [facility] Diagnosis Pre-op exam- Primary Preoperative examination, unspecified Acquired hallux limitus of left foot Other acquired deformity of toe Pain in toe of left foot Pain in limb Essential hypertension Unspecified essential hypertension Acute myocardial infarction, unspecified NM type, unspecified artery (HCC) Other chest pain Heart palpitations Palpitations Gastroesophageal reflux disease without esophagitis Esophageal reflux Lung nodule Solitary pulmonary nodule Mixed hyperlipidemia Fibromyalgia Mylagia and myositis, unspecified Pain Generalized pain Pre-op evaluation- Primary Preoperative examination, unspecified Mixed hyperlipidemia Heart palpitations Palpitations 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) Acute myocardial infarction, unspecified NM type, unspecified artery (HCC) Lung nodule Solitary pulmonary nodule Gastroesophageal reflux disease without esophagitis Esophageal reflux Primary hypertension Unspecified essential hypertension Sleep apnea, unspecified type Cigarette nicotine dependence without complication Tobacco use disorder Pre-op examination- Primary Preoperative examination, unspecified Primary arthrosis of first carpometacarpal joints, bilateral Primary localized osteoarthrosis, hand Mixed hyperlipidemia 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) Heart palpitations Palpitations Sleep apnea, unspecified type Cigarette nicotine dependence without complication Tobacco use disorder Gastroesophageal reflux disease without esophagitis Esophageal reflux Primary hypertension Unspecified essential hypertension Cervicalgia Concussion with loss of consciousness, subsequent encounter History of alcohol abuse Nondependent alcohol abuse, 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 Primary arthrosis of first carpometacarpal joints, bilateral Primary localized osteoarthrosis, hand [facility] Diagnosis Pre-op exam- Primary Preoperative examination, unspecified Acquired hallux limitus of left foot Other acquired deformity of toe Pain in toe of left foot Pain in limb Essential hypertension Unspecified essential hypertension Acute myocardial infarction, unspecified NM type, unspecified artery (HCC) Other chest pain Heart palpitations Palpitations Gastroesophageal reflux disease without esophagitis Esophageal reflux Lung nodule Solitary pulmonary nodule Mixed hyperlipidemia Fibromyalgia Mylagia and myositis, unspecified Pre-op evaluation- Primary Preoperative examination, unspecified Mixed hyperlipidemia Heart palpitations Palpitations 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) Acute myocardial infarction, unspecified NM type, unspecified artery (HCC) Lung nodule Solitary pulmonary nodule Gastroesophageal reflux disease without esophagitis Esophageal reflux Primary hypertension Unspecified essential hypertension Sleep apnea, unspecified type Cigarette nicotine dependence without complication Tobacco use disorder Pre-op examination- Primary Preoperative examination, unspecified Primary arthrosis of first carpometacarpal joints, bilateral Primary localized osteoarthrosis, hand Mixed hyperlipidemia 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) Heart palpitations Palpitations Sleep apnea, unspecified type Cigarette nicotine dependence without complication Tobacco use disorder Gastroesophageal reflux disease without esophagitis Esophageal reflux Primary hypertension Unspecified essential hypertension Cervicalgia Concussion with loss of consciousness, subsequent encounter History of alcohol abuse Nondependent alcohol abuse, 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 Pain- Primary Generalized pain Primary arthrosis of first carpometacarpal joints, bilateral Primary localized osteoarthrosis, hand [facility] Diagnosis Pre-op exam- Primary Preoperative examination, unspecified Acquired hallux limitus of left foot Other acquired deformity of toe Pain in toe of left foot Pain in limb Essential hypertension Unspecified essential hypertension Acute myocardial infarction, unspecified NM type, unspecified artery (HCC) Other chest pain Heart palpitations Palpitations Gastroesophageal reflux disease without esophagitis Esophageal reflux Lung nodule Solitary pulmonary nodule Mixed hyperlipidemia Fibromyalgia Mylagia and myositis, unspecified Bilateral hand pain Pain in limb Pre-op evaluation- Primary Preoperative examination, unspecified Mixed hyperlipidemia Heart palpitations Palpitations 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) Acute myocardial infarction, unspecified NM type, unspecified artery (HCC) Lung nodule Solitary pulmonary nodule Gastroesophageal reflux disease without esophagitis Esophageal reflux Primary hypertension Unspecified essential hypertension Sleep apnea, unspecified type Cigarette nicotine dependence without complication Tobacco use disorder Pre-op examination- Primary Preoperative examination, unspecified Primary arthrosis of first carpometacarpal joints, bilateral Primary localized osteoarthrosis, hand Mixed hyperlipidemia 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) Heart palpitations Palpitations Sleep apnea, unspecified type Cigarette nicotine dependence without complication Tobacco use disorder Gastroesophageal reflux disease without esophagitis Esophageal reflux Primary hypertension Unspecified essential hypertension Cervicalgia Concussion with loss of consciousness, subsequent encounter History of alcohol abuse Nondependent alcohol abuse, 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 Primary arthrosis of first carpometacarpal joints, bilateral Primary localized osteoarthrosis, hand documented [facility] Diagnosis Pre-op exam- Primary Preoperative examination, unspecified Acquired hallux limitus of left foot Other acquired deformity of toe Pain in toe of left foot Pain in limb Essential hypertension Unspecified essential hypertension Acute myocardial infarction, unspecified NM type, unspecified artery (HCC) Other chest pain Heart palpitations Palpitations Gastroesophageal reflux disease without esophagitis Esophageal reflux Lung nodule Solitary pulmonary nodule Mixed hyperlipidemia Fibromyalgia Mylagia and myositis, unspecified Pre-op evaluation- Primary Preoperative examination, unspecified Mixed hyperlipidemia Heart palpitations Palpitations 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) Acute myocardial infarction, unspecified NM type, unspecified artery (HCC) Lung nodule Solitary pulmonary nodule Gastroesophageal reflux disease without esophagitis Esophageal reflux Primary hypertension Unspecified essential hypertension Sleep apnea, unspecified type Cigarette nicotine dependence without complication Tobacco use disorder Pre-op examination- Primary Preoperative examination, unspecified Primary arthrosis of first carpometacarpal joints, bilateral Primary localized osteoarthrosis, hand Mixed hyperlipidemia 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) Heart palpitations Palpitations Sleep apnea, unspecified type Cigarette nicotine dependence without complication Tobacco use disorder Gastroesophageal reflux disease without esophagitis Esophageal reflux Primary hypertension Unspecified essential hypertension Cervicalgia Concussion with loss of consciousness, subsequent encounter History of alcohol abuse Nondependent alcohol abuse, 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 Post-concussion headache- Primary Post-traumatic headache, unspecified Primary arthrosis of first carpometacarpal joints, bilateral Primary localized osteoarthrosis, hand [facility] Diagnosis Strain of right ankle, initial encounter- Primary Strain of right foot, initial encounter Right foot pain Pain in soft tissues of limb Acute right ankle pain Other specified disorders of synovium, right ankle and foot- Primary DJD (degenerative joint disease), ankle and foot, right Contracture of right ankle Contracture of left ankle [facility] Diagnosis Elbow sprain, right, initial encounter Pre-op exam- Primary Preoperative examination, unspecified Acquired hallux limitus of left foot Other acquired deformity of toe Pain in toe of left foot Pain in limb Essential hypertension Unspecified essential hypertension Acute myocardial infarction, unspecified NM type, unspecified artery (HCC) Other chest pain Heart palpitations Palpitations Gastroesophageal reflux disease without esophagitis Esophageal reflux Lung nodule Solitary pulmonary nodule Mixed hyperlipidemia Fibromyalgia Mylagia and myositis, unspecified Pre-op evaluation- Primary Preoperative examination, unspecified Mixed hyperlipidemia Heart palpitations Palpitations 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) Acute myocardial infarction, unspecified NM type, unspecified artery (HCC) Lung nodule Solitary pulmonary nodule Gastroesophageal reflux disease without esophagitis Esophageal reflux Primary hypertension Unspecified essential hypertension Sleep apnea, unspecified type Cigarette nicotine dependence without complication Tobacco use disorder Pre-op examination- Primary Preoperative examination, unspecified Primary arthrosis of first carpometacarpal joints, bilateral Primary localized osteoarthrosis, hand Mixed hyperlipidemia 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) Heart palpitations Palpitations Sleep apnea, unspecified type Cigarette nicotine dependence without complication Tobacco use disorder Gastroesophageal reflux disease without esophagitis Esophageal reflux Primary hypertension Unspecified essential hypertension Cervicalgia Concussion with loss of consciousness, subsequent encounter History of alcohol abuse Nondependent alcohol abuse, 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 Primary arthrosis of first carpometacarpal joints, bilateral Primary localized osteoarthrosis, hand documented [facility] Diagnosis Pre-op exam- Primary Preoperative examination, unspecified Acquired hallux limitus of left foot Other acquired deformity of toe Pain in toe of left foot Pain in limb Essential hypertension Unspecified essential hypertension Acute myocardial infarction, unspecified NM type, unspecified artery (HCC) Other chest pain Heart palpitations Palpitations Gastroesophageal reflux disease without esophagitis Esophageal reflux Lung nodule Solitary pulmonary nodule Mixed hyperlipidemia Fibromyalgia Mylagia and myositis, unspecified Pre-op evaluation- Primary Preoperative examination, unspecified Mixed hyperlipidemia Heart palpitations Palpitations 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) Acute myocardial infarction, unspecified NM type, unspecified artery (HCC) Lung nodule Solitary pulmonary nodule Gastroesophageal reflux disease without esophagitis Esophageal reflux Primary hypertension Unspecified essential hypertension Sleep apnea, unspecified type Cigarette nicotine dependence without complication Tobacco use disorder Pre-op examination- Primary Preoperative examination, unspecified Primary arthrosis of first carpometacarpal joints, bilateral Primary localized osteoarthrosis, hand Mixed hyperlipidemia 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) Heart palpitations Palpitations Sleep apnea, unspecified type Cigarette nicotine dependence without complication Tobacco use disorder Gastroesophageal reflux disease without esophagitis Esophageal reflux Primary hypertension Unspecified essential hypertension Cervicalgia Concussion with loss of consciousness, subsequent encounter History of alcohol abuse Nondependent alcohol abuse, 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 Pain in both feet- Primary Pain in limb Primary arthrosis of first carpometacarpal joints, bilateral Primary localized osteoarthrosis, hand documented in [facility]* Diagnosis Pre-op exam- Primary Preoperative examination, unspecified Acquired hallux limitus of left foot Other acquired deformity of toe Pain in toe of left foot Pain in limb Essential hypertension Unspecified essential hypertension Acute myocardial infarction, unspecified NM type, unspecified artery (HCC) Other chest pain Heart palpitations Palpitations Gastroesophageal reflux disease without esophagitis Esophageal reflux Lung nodule Solitary pulmonary nodule Mixed hyperlipidemia Fibromyalgia Mylagia and myositis, unspecified Pre-op evaluation- Primary Preoperative examination, unspecified Mixed hyperlipidemia Heart palpitations Palpitations 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) Acute myocardial infarction, unspecified NM type, unspecified artery (HCC) Lung nodule Solitary pulmonary nodule Gastroesophageal reflux disease without esophagitis Esophageal reflux Primary hypertension Unspecified essential hypertension Sleep apnea, unspecified type Cigarette nicotine dependence without complication Tobacco use disorder Pre-op examination- Primary Preoperative examination, unspecified Primary arthrosis of first carpometacarpal joints, bilateral Primary localized osteoarthrosis, hand Mixed hyperlipidemia 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) Heart palpitations Palpitations Sleep apnea, unspecified type Cigarette nicotine dependence without complication Tobacco use disorder Gastroesophageal reflux disease without esophagitis Esophageal reflux Primary hypertension Unspecified essential hypertension Cervicalgia Concussion with loss of consciousness, subsequent encounter History of alcohol abuse Nondependent alcohol abuse, 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 Pain in toe of right foot Pain in limb Primary arthrosis of first carpometacarpal joints, bilateral Primary localized osteoarthrosis, hand documented in this [facility] Diagnosis 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 [facility] Diagnosis Secondary male hypogonadism Other testicular hypofunction [facility] Diagnosis Pre-op exam- Primary Preoperative examination, unspecified Acquired hallux limitus of left foot Other acquired deformity of toe Pain in toe of left foot Pain in limb Essential hypertension Unspecified essential hypertension Acute myocardial infarction, unspecified NM type, unspecified artery (HCC) Other chest pain Heart palpitations Palpitations Gastroesophageal reflux disease without esophagitis Esophageal reflux Lung nodule Solitary pulmonary nodule Mixed hyperlipidemia Fibromyalgia Mylagia and myositis, unspecified Pre-op evaluation- Primary Preoperative examination, unspecified Mixed hyperlipidemia Heart palpitations Palpitations 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) Acute myocardial infarction, unspecified NM type, unspecified artery (HCC) Lung nodule Solitary pulmonary nodule Gastroesophageal reflux disease without esophagitis Esophageal reflux Primary hypertension Unspecified essential hypertension Sleep apnea, unspecified type Cigarette nicotine dependence without complication Tobacco use disorder Pre-op examination- Primary Preoperative examination, unspecified Primary arthrosis of first carpometacarpal joints, bilateral Primary localized osteoarthrosis, hand Mixed hyperlipidemia 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) Heart palpitations Palpitations Sleep apnea, unspecified type Cigarette nicotine dependence without complication Tobacco use disorder Gastroesophageal reflux disease without esophagitis Esophageal reflux Primary hypertension Unspecified essential hypertension Cervicalgia Concussion with loss of consciousness, subsequent encounter History of alcohol abuse Nondependent alcohol abuse, 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 Hallux rigidus, right foot- Primary Osteoarthritis of right ankle and foot Primary arthrosis of first carpometacarpal joints, bilateral Primary localized osteoarthrosis, hand documented in this encounter [facility] for referral (narrative)* Outpatient Procedure (Routine) - Pending Review Specialty Diagnoses / Procedures Referred By Urmila little Referred To Contact [facility] Diagnoses Gastroesophageal reflux disease without esophagitis Procedures EGD DIAGNOSTIC ESOPHAGOGASTRODUODENOSC OPY TRANSORAL DIAGNOSTIC Stephany Bucio MD [address] [place] [address] [facility] [address] [place] [address] Referral ID Status Reason Start Date Expiration Date Visits Requested Visits Authorized [id number] Pending Review Auto-Generat ed Referral 08/05/2021 08/05/2022 1 1 [facility] for referral (narrative)* Outpatient Procedure (Routine) - Pending Review Specialty Diagnoses / Procedures Referred By Contac t Referred To Contact [facility] Diagnoses Screening for colon cancer History of colonic polyps Procedures COLONOSCOPY SCREENING COLONOSCOPY FLX DX W/COLLJ SPEC WHEN [facility] [place] CAMPUSElisa Patel PA-C [address] [place] [address] [facility] [address] [address] Referral ID Status Reason Start Date Expiration Date Visits Requested Visits Authorized [id number] Pending Review Auto-Generat ed Referral 08/06/2021 08/06/2022 1 1 [facility] for referral (narrative)* Outpatient Procedure (Routine) - Closed Specialty Diagnoses / Procedures Referred By Contdiana t Referred To Contact [facility] Diagnoses Screening for colon cancer History of colonic polyps Procedures COLONOSCOPY SCREENING COLONOSCOPY FLX DX W/COLLJ SPEC WHEN [facility] [place] CAM[place]lisa Patel PA-C [address] [place] [address] [facility] [address] [address] Referral ID Status Reason Start Date Expiration Date V isits Requested Visits Authorized [id number] Closed Auto-Generate d Referral 08/06/2021 08/06/2022 1 1 * Outpatient Procedure (Routine) - Closed Specialty Diagnoses / Procedures Referred By Contac t Referred To Contact [facility] Diagnoses Gastroesophageal reflux disease without esophagitis Procedures EGD DIAGNOSTIC ESOPHAGOGASTRODUODENOSC OPY TRANSORAL DIAGNOSTIC Stephany Bucio MD [address] [facility] [place] [address] [facility] [address] [address] Referral ID Status Reason Start Date Expiration Date V isits Requested Visits Authorized [id number] Closed Auto-Generate d Referral 08/05/2021 08/05/2022 1 1 [facility] for referral (narrative)* Diagnostic Procedure Only (Routine) - Authorized Specialty Diagnoses / Procedures Referred By Contac t Referred To Contact [facility] Diagnoses Abnormal carotid ultrasound Procedures [place] [address] [place] [address] [facility] Referral ID Status Reason Start Date Expiration Date Visits Requested Visits Authorized [id number] Authorized Auto-Generat ed Referral 08/20/2021 09/19/2022 1 1 * Diagnostic Procedure Only (Routine) - Authorized Specialty Diagnoses / Procedures Referred By Contac t Referred To Contact [facility] IMAG[facility] Diagnoses SOB (shortness of breath) Procedures XR CHEST 1V FRONTAL PORT RADIOLOGIC EXAM CHEST SINGLE VIEW Day Holman MD [address] [place] [address] [facility] Referral ID Status Reason Start Date Expiration Date Visits Requested Visits Authorized [id number] Authorized Auto-Generat ed Referral 08/20/2021 09/19/2022 1 1 [facility] for referral (narrative)* Diagnostic Procedure Only (Routine) - Closed Specialty Diagnoses / Procedures Referred By Contac t Referred To Contact [facility] Diagnoses Abnormal carotid ultrasound Procedures [place] [address] [place] [address] [facility] Referral ID Status Reason Start Date Expiration Date V isits Requested Visits Authorized [id number] Closed Auto-Generate d Referral 08/20/2021 09/19/2022 1 1 [facility] for referral (narrative)* Diagnostic Procedure Only (Routine) - Closed Specialty Diagnoses / Procedures Referred By Contac t Referred To Contact XR IMAGING Diagnoses Pain Procedures XR FOOT GENERAL 3V AP/LAT/OBL RIGHT RADEX FOOT COMPLETE MINIMUM 3 VIEWS Morgan, Gatito, V, DPM [address] [place] [address] [facility] Referral ID Status Reason Start Date Expiration Date V isits Requested Visits Authorized [id number] Closed Auto-Generate d Referral 10/05/2021 11/04/2022 1 1 [facility] for referral (narrative)* Diagnostic Procedure Only (Routine) - Closed Specialty Diagnoses / Procedures Referred By Contac t Referred To Contact XR IMAGING Diagnoses Surgical follow-up care Procedures XR FOOT GENERAL 3V AP/LAT/OBL RIGHT RADEX FOOT COMPLETE MINIMUM 3 VIEWS Morgan, Radha Romero, DPM [address] [place] [address] [facility] Referral ID Status Reason Start Date Expiration Date V isits Requested Visits Authorized [id number] Closed Auto-Generate d Referral 02/09/2022 03/11/2023 1 1 [facility] for referral (narrative)* Diagnostic Procedure Only (Routine) - Closed Specialty Diagnoses / Procedures Referred By Contac t Referred To Contact XR IMAGING Diagnoses SOB (shortness of breath) Procedures XR CHEST 1V FRONTAL PORT RADIOLOGIC EXAM CHEST SINGLE VIEW Day Holman MD [address] [place] [address] Xr Imaging Referral ID Status Reason Start Date Expiration Date V isits Requested Visits Authorized [id number] Closed Auto-Generate d Referral 08/20/2021 09/19/2022 1 1 [facility] for referral (narrative)* Diagnostic Procedure Only (Routine) - Closed Specialty Diagnoses / Procedures Referred By Contac t Referred To Contact XR IMAGING Diagnoses Pain Procedures XR HAND GENERAL 3V PA/LAT/OBL LEFT RADEX HAND MINIMUM 3 VIEWS Mariah Anderson PA-C [address] [place] [address] [place] [address] Referral ID Status Reason Start Date Expiration Date V isits Requested Visits Authorized [id number] Closed Auto-Generate d Referral 12/02/2022 01/01/2024 1 1 [facility] for referral (narrative)* Diagnostic Procedure Only (Routine) - Closed Specialty Diagnoses / Procedures Referred By Contac t Referred To Contact XR IMAGING Diagnoses Surgical follow-up care Procedures XR FOOT GENERAL 3V AP/LAT/OBL RIGHT RADEX FOOT COMPLETE MINIMUM 3 VIEWS Cristin, Rahda Romero, DPM [address] [place] [id number] [place] [address] Referral ID Status Reason Start Date Expiration Date V isits Requested Visits Authorized [id number] Closed Auto-Generate d Referral 02/09/2022 03/11/2023 1 1 [facility] for referral (narrative)* Diagnostic Procedure Only (Routine) - Closed Specialty Diagnoses / Procedures Referred By Contac t Referred To Contact XR IMAGING Diagnoses Post-operative state Procedures XR DIGIT GENERAL 3V FRONTAL/LAT/OBL LEFT RADEX FINGR MINIMUM 2 VIEWS Rik Rosenthal MD [address] [place] [address] [place] [address] Referral ID Status Reason Start Date Expiration Date V isits Requested Visits Authorized [id number] Closed Auto-Generate d Referral 12/26/2023 01/24/2025 1 1 [facility] for referral (narrative)* Diagnostic Procedure Only (Routine) - Closed Specialty Diagnoses / Procedures Referred By Contac t Referred To Contact XR IMAGING Diagnoses Thumb pain, unspecified laterality Procedures XR DIGIT GENERAL 3V FRONTAL/LAT/OBL RIGHT RADEX FINGR MINIMUM 2 VIEWS Rik Rosenthal MD [address] [place] [address] [place] [address] Referral ID Status Reason Start Date Expiration Date V isits Requested Visits Authorized [id number] Closed Auto-Generate d Referral 10/17/2023 11/15/2024 1 1 * Diagnostic Procedure Only (Routine) - Closed Specialty Diagnoses / Procedures Referred By Contac t Referred To Contact XR IMAGING Diagnoses Thumb pain, unspecified laterality Procedures XR DIGIT GENERAL 3V FRONTAL/LAT/OBL LEFT RADEX FINGR MINIMUM 2 VIEWS Rik Rosenthal MD [address] [place] [address] [place] [address] Referral ID Status Reason Start Date Expiration Date V isits Requested Visits Authorized [id number] Closed Auto-Generate d Referral 10/17/2023 11/15/2024 1 1 [facility] for referral (narrative)* Diagnostic Procedure Only (Routine) - Closed Specialty Diagnoses / Procedures Referred By Contac t Referred To Contact XR IMAGING Diagnoses Post-operative state Procedures XR DIGIT GENERAL 3V FRONTAL/LAT/OBL LEFT RADEX FINGR MINIMUM 2 VIEWS Karli Acevedo PA-C [address] [place] [address] [place] [address] Referral ID Status Reason Start Date Expiration Date V isits Requested Visits Authorized [id number] Closed Auto-Generate d Referral 01/11/2024 02/09/2025 1 1 [facility] for referral (narrative)* Diagnostic Procedure Only (Routine) - Closed Specialty Diagnoses / Procedures Referred By Contac t Referred To Contact XR IMAGING Diagnoses Post-operative state Procedures XR DIGIT GENERAL 3V FRONTAL/LAT/OBL LEFT RADEX FINGR MINIMUM 2 VIEWS Karli Acevedo PA-C [address] [place] [address] [place] [address] Referral ID Status Reason Start Date Expiration Date V isits Requested Visits Authorized [id number] Closed Auto-Generate d Referral 01/23/2024 02/21/2025 1 1 [facility] for referral (narrative)* Diagnostic Procedure Only (Routine) - New Request Specialty Diagnoses / Procedures Referred By Contac t Referred To Contact XR IMAGING Diagnoses Pain Procedures XR ANKLE GENERAL 3V AP/LAT/OBL BILATERAL RADEX ANKLE COMPLETE MINIMUM 3 VIEWS Scott Voss, MARTHAM [address] [place] [address] [id number] Referral ID Status Reason Start Date Expiration Date Visits Requested Visits Authorized [id number] New Request Auto-Generat ed Referral 02/03/2024 03/04/2025 1 1 * Diagnostic Procedure Only (Routine) - New Request Specialty Diagnoses / Procedures Referred By Contac t Referred To Contact XR IMAGING Diagnoses Pain Procedures XR FOOT GENERAL 3V AP/LAT/OBL BILATERAL RADEX FOOT COMPLETE MINIMUM 3 VIEWS Scott Voss, DPM [address] [place] [address] X[id number] Referral ID Status Reason Start Date Expiration Date Visits Requested Visits Authorized [id number] New Request Auto-Generat ed Referral 02/03/2024 03/04/2025 1 1 [facility] for referral (narrative)* Diagnostic Procedure Only (Routine) - Closed Specialty Diagnoses / Procedures Referred By Contac t Referred To Contact [facility] IMAG[facility] Diagnoses Elbow sprain, right, initial encounter Procedures MRI ELBOW WO IVCON RT MRI, JOINT UPPER EXTREM Murphy Bucio MD [address] [place] [address] [facility] Referral ID Status Reason Start Date Expiration Date V isits Requested Visits Authorized [id number] Closed Auto-Generate d Referral 12/13/2019 01/09/2020 3 3 [facility] for referral (narrative)* Diagnostic Procedure Only (Routine) - Closed Specialty Diagnoses / Procedures Referred By Contac t Referred To Contact XR IMAGING Diagnoses Pain in toe of right foot Procedures XR FOOT GENERAL 3V AP/LAT/OBL RIGHT XR FOOT GENERAL 3V AP/LAT/OBL RIGHT RADEX FOOT COMPLETE MINIMUM 3 VIEWS Scott Voss, MARTHAM [address] [place] [address] [place] [address] Referral ID Status Reason Start Date Expiration Date V isits Requested Visits Authorized [id number] Closed Auto-Generate d Referral 02/08/2024 03/09/2025 1 1 * Diagnostic Procedure Only (Routine) - Closed Specialty Diagnoses / Procedures Referred By Urmila t Referred To Contact XR IMAGING Diagnoses Pain in toe of right foot Procedures XR ANKLE GENERAL 3V AP/LAT/OBL RIGHT XR ANKLE GENERAL 3V AP/LAT/OBL RIGHT RADEX ANKLE COMPLETE MINIMUM 3 VIEWS Scott Voss, DEEPTI [address] [place] [address] [place] [address] Referral ID Status Reason Start Date Expiration Date V isits Requested Visits Authorized [id number] Closed Auto-Generate d Referral 02/08/2024 03/09/2025 1 1 [facility] for visit Narrative* Auth/Cert Specialty Diagnoses / Procedures Referred By Krisac t Referred To Contact Diagnoses Gastro-esophageal reflux disease without esophagitis Procedures ESOPHAGOGASTRODUODENOSCOPY TRANSORAL DIAGNOSTIC Av Procedure [address] [place] [address] Referral ID Status Reason Start Date Expiration Date Visits Re quested Visits Authorized [id number] 1 1 [facility] for visit Narrative* Diagnostic Procedure Only (Routine) - Closed Specialty Diagnoses / Procedures Referred By Krisac t Referred To Contact US IMAGING Diagnoses Abnormal carotid ultrasound Procedures US CAROTID BILAT Day Holman MD [address] [place] [address] Us Imaging Referral ID Status Reason Start Date Expiration Date V isits Requested Visits Authorized [id number] Closed Auto-Generate d Referral 08/20/2021 09/19/2022 1 1 [facility] for visit Narrative* Diagnostic Procedure Only (Routine) - Closed Specialty Diagnoses / Procedures Referred By Contac t Referred To Contact XR IMAGING Diagnoses Pain Procedures XR FOOT GENERAL 3V AP/LAT/OBL RIGHT RADEX FOOT COMPLETE MINIMUM 3 VIEWS Morgan, Gatito, V, DPM [address] [place] [address] Xr Imaging Referral ID Status Reason Start Date Expiration Date V isits Requested Visits Authorized [id number] Closed Auto-Generate d Referral 10/05/2021 11/04/2022 1 1 [facility] for visit Narrative* Diagnostic Procedure Only (Routine) - Closed Specialty Diagnoses / Procedures Referred By Contac t Referred To Contact XR IMAGING Diagnoses SOB (shortness of breath) Procedures XR CHEST 1V FRONTAL PORT RADIOLOGIC EXAM CHEST SINGLE VIEW Day Holman MD [address] [place] [address] Xr Imaging Referral ID Status Reason Start Date Expiration Date V isits Requested Visits Authorized [id number] Closed Auto-Generate d Referral 08/20/2021 09/19/2022 1 1 [facility] for visit Narrative* Diagnostic Procedure Only (Routine) - Closed Specialty Diagnoses / Procedures Referred By Contac t Referred To Contact XR IMAGING Diagnoses Surgical follow-up care Procedures XR FOOT GENERAL 3V AP/LAT/OBL RIGHT RADEX FOOT COMPLETE MINIMUM 3 VIEWS Morgan, Gatito, V, DPM [address] [place] [address] [place] [address] Referral ID Status Reason Start Date Expiration Date V isits Requested Visits Authorized [id number] Closed Auto-Generate d Referral 02/09/2022 03/11/2023 1 1 [facility] for visit Narrative* Diagnostic Procedure Only (Routine) - Closed Specialty Diagnoses / Procedures Referred By Contac t Referred To Contact XR IMAGING Diagnoses Post-operative state Procedures XR DIGIT GENERAL 3V FRONTAL/LAT/OBL LEFT RADEX FINGR MINIMUM 2 VIEWS Karli Acevedo PA-C [address] [place] [address] [place] [address] Referral ID Status Reason Start Date Expiration Date V isits Requested Visits Authorized [id number] Closed Auto-Generate d Referral 01/23/2024 02/21/2025 1 1 [facility] Diagnostic Procedure Only (Routine) - Closed Specialty Diagnoses / Procedures Referred By Contac t Referred To Contact XR IMAGING Diagnoses Pain in toe of right foot Procedures XR FOOT GENERAL 3V AP/LAT/OBL RIGHT XR FOOT GENERAL 3V AP/LAT/OBL RIGHT RADEX FOOT COMPLETE MINIMUM 3 VIEWS Scott Voss, DEEPTI [address] [place] [address] [place] [address] Referral ID Status Reason Start Date Expiration Date V isits Requested Visits Authorized [id number] Closed Auto-Generate d Referral 02/08/2024 03/09/2025 1 1 [facility] Summary Purpose Family History Relationship Condition Age at Onset Recorded Date/T andrew Not Specified No pertinent family history Unknown Advance Directives Documents on File Type Date Recorded 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 Advance Directive(s) 09/03/2020 12:12 PM Advance Directive(s) 06/24/2020 11:18 AM Advance Directive(s) 04/08/2020 1:37 PM Advance Directive(s) 03/07/2020 8:36 AM Advance Directive(s) 12/27/2019 6:22 AM Advance Directive(s) 11/20/2019 2:37 PM Advance Directive(s) 11/07/2019 4:52 PM Advance Directive(s) 10/08/2019 3:27 PM Advance Directive(s) 03/28/2019 3:43 PM Advance Directive(s) 01/17/2019 8:04 AM Advance Directive(s) 12/19/2018 8:53 PM Advance Directive(s) 01/31/2018 6:01 AM Advance Directive(s) 01/09/2018 2:26 PM Advance Directive(s) 12/06/2017 9:40 PM Advance Directive(s) 09/26/2017 8:01 PM Advance Directive(s) 08/24/2017 1:02 PM Advance Directive(s) 08/01/2017 3:09 PM Advance Directive(s) 03/15/2017 6:43 AM Advance Directive(s) 10/19/2016 8:36 AM Advance Directive(s) 07/26/2016 2:37 PM Advance Directive(s) 07/19/2016 3:04 PM Advance Directive(s) 06/14/2016 10:10 AM Advance Directive(s) 06/30/2015 4:31 AM Documents on File Type Date Recorded 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 Advance Directive(s) 09/03/2020 12:12 PM Advance Directive(s) 06/24/2020 11:18 AM Advance Directive(s) 04/08/2020 1:37 PM Advance Directive(s) 03/07/2020 8:36 AM Advance Directive(s) 12/27/2019 6:22 AM Advance Directive(s) 11/20/2019 2:37 PM Advance Directive(s) 11/07/2019 4:52 PM Advance Directive(s) 10/08/2019 3:27 PM Advance Directive(s) 03/28/2019 3:43 PM Advance Directive(s) 01/17/2019 8:04 AM Advance Directive(s) 12/19/2018 8:53 PM Advance Directive(s) 01/31/2018 6:01 AM Advance Directive(s) 01/09/2018 2:26 PM Advance Directive(s) 12/06/2017 9:40 PM Advance Directive(s) 09/26/2017 8:01 PM Advance Directive(s) 08/24/2017 1:02 PM Advance Directive(s) 08/01/2017 3:09 PM Advance Directive(s) 03/15/2017 6:43 AM Advance Directive(s) 10/19/2016 8:36 AM Advance Directive(s) 07/26/2016 2:37 PM Advance Directive(s) 07/19/2016 3:04 PM Advance Directive(s) 06/14/2016 10:10 AM Advance Directive(s) 06/30/2015 4:31 AM Documents on File Type Date Recorded 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 Advance Directive(s) 08/12/2021 6:26 AM Advance Directive(s) 09/03/2020 12:12 PM Advance Directive(s) 06/24/2020 11:18 AM Advance Directive(s) 04/08/2020 1:37 PM Advance Directive(s) 03/07/2020 8:36 AM Advance Directive(s) 12/27/2019 6:22 AM Advance Directive(s) 11/20/2019 2:37 PM Advance Directive(s) 11/07/2019 4:52 PM Advance Directive(s) 10/08/2019 3:27 PM Advance Directive(s) 03/28/2019 3:43 PM Advance Directive(s) 01/17/2019 8:04 AM Advance Directive(s) 12/19/2018 8:53 PM Advance Directive(s) 01/31/2018 6:01 AM Advance Directive(s) 01/09/2018 2:26 PM Advance Directive(s) 12/06/2017 9:40 PM Advance Directive(s) 09/26/2017 8:01 PM Advance Directive(s) 08/24/2017 1:02 PM Advance Directive(s) 08/01/2017 3:09 PM Advance Directive(s) 03/15/2017 6:43 AM Advance Directive(s) 10/19/2016 8:36 AM Advance Directive(s) 07/26/2016 2:37 PM Advance Directive(s) 07/19/2016 3:04 PM Advance Directive(s) 06/14/2016 10:10 AM Advance Directive(s) 06/30/2015 4:31 AM Documents on File Type Date Recorded 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 Advance Directive(s) 08/12/2021 6:26 AM Advance Directive(s) 09/03/2020 12:12 PM Advance Directive(s) 06/24/2020 11:18 AM Advance Directive(s) 04/08/2020 1:37 PM Advance Directive(s) 03/07/2020 8:36 AM Advance Directive(s) 12/27/2019 6:22 AM Advance Directive(s) 11/20/2019 2:37 PM Advance Directive(s) 11/07/2019 4:52 PM Advance Directive(s) 10/08/2019 3:27 PM Advance Directive(s) 03/28/2019 3:43 PM Advance Directive(s) 01/17/2019 8:04 AM Advance Directive(s) 12/19/2018 8:53 PM Advance Directive(s) 01/31/2018 6:01 AM Advance Directive(s) 01/09/2018 2:26 PM Advance Directive(s) 12/06/2017 9:40 PM Advance Directive(s) 09/26/2017 8:01 PM Advance Directive(s) 08/24/2017 1:02 PM Advance Directive(s) 08/01/2017 3:09 PM Advance Directive(s) 03/15/2017 6:43 AM Advance Directive(s) 10/19/2016 8:36 AM Advance Directive(s) 07/26/2016 2:37 PM Advance Directive(s) 07/19/2016 3:04 PM Advance Directive(s) 06/14/2016 10:10 AM Advance Directive(s) 06/30/2015 4:31 AM Latest Code Status on File Code Status Date Activated Date Inactivated Comments Full Code 06/21/2022 10:51 AM 06/21/2022 8:44 PM Latest Code Status on File Code Status Date Activated Date Inactivated Comments Full Code 06/21/2022 10:51 AM 06/21/2022 8:44 PM Advance Directive Response Recorded Date/ Time Advance Directives No March 11:40pm Latest Code Status on File Code Status Date Activated Date Inactivated Comments Full Code 06/21/2022 10:51 AM 06/21/2022 8:44 PM Latest Code Status on File Code Status Date Activated Date Inactivated Comments Full Code 11/19/2022 1:15 AM Question Answer Comments Documentation of decision process for this code status: Patient and surrogate unable or unavailable to discuss. There is no previous documentation of code status. Defaulting to Full Code Latest Code Status on File Code Status Date Activated Date Inactivated Comments Full Code 11/19/2022 1:15 AM Question Answer Comments Documentation of decision process for this code status: Patient and surrogate unable or unavailable to discuss. There is no previous documentation of code status. Defaulting to Full Code Latest Code Status on File Code Status Date Activated Date Inactivated Comments Full Code 11/19/2022 1:15 AM 11/22/2022 7:58 PM Question Answer Comments Documentation of decision process for this code status: Patient and surrogate unable or unavailable to discuss. There is no previous documentation of code status. Defaulting to Full Code Date Activated Date Inactivated Comments 11/19/2022 1:15 AM 11/22/2022 7:58 PM Question Answer Comments Documentation of decision pr ocess for this code status: Patient and surrogate unable or unavailable to discuss. There is no previous documentation of code status. Defaulting to Full Code Reason for Referral Specialty Diagnoses / Procedures Referred By Contac t Referred To Contact Cardiology Diagnoses Shortness of breath Procedures CONSULT TO CARDIOLOGY OFFICE/OUTPATIENT [facility] 60-[place] [address] [place] [address] Referral ID Status Reason Start Date Expiration Date Visits Requested Visits Authorized [id number] Authorized PCP Requested Referral 08/05/2021 08/05/2022 1 1 Specialty Diagnoses / Procedures Referred By Contac t Referred To Contact [facility] Diagnoses Gastroesophageal reflux disease without esophagitis Procedures EGD DIAGNOSTIC ESOPHAGOGASTRODUODENOSC OPY TRANSOR[place] [address] [place] [address] [facility] [address] [place] [address] Referral ID Status Reason Start Date Expiration Date Visits Requested Visits Authorized [id number] Authorized Auto-Generat ed Referral 08/05/2021 08/05/2022 1 1 Specialty Diagnoses / Procedures Referred By Contac t Referred To Contact Endocrinology Diagnoses Testosterone deficiency Procedures CONSULT TO ENDOCRINOLOGY OFFICE/OUTPATIENT [facility] 60-[place] [address] [place] [address] Referral ID Status Reason Start Date Expiration Date Visits Requested Visits Authorized [id number] Authorized PCP Requested Referral 09/25/2021 09/25/2022 1 1 Specialty Diagnoses / Procedures Referred By Contac t Referred To Contact [facility] Diagnoses Chronic post concussive encephalopathy Procedures CONSULT TO SPEECH THERAPY OFFICE/OUTPATIENT [facility] 60-74 MINUTES Day Holman MD [address] [place] [address] [facility] [address] [address] Referral ID Status Reason Start Date Expiration Date Visits Requested Visits Authorized [id number] Pending Review Auto-Generat ed Referral 11/25/2021 11/25/2022 1 1 Specialty Diagnoses / Procedures Referred By Contac t Referred To Contact Ent - Otolaryngology Diagnoses Swallowing pain Loss of voice Procedures CONSULT TO ENT OFFICE/OUTPATIENT [facility] 60-[place] [address] [place] [address] Referral ID Status Reason Start Date Expiration Date Visits Requested Visits Authorized [id number] Authorized PCP Requested Referral 12/03/2021 12/03/2022 1 1 Specialty Diagnoses / Procedures Referred By Contac t Referred To Contact CT IMAGING Diagnoses Vocal cord nodule Procedures CT NECK SOFT TISSUE W IVCON CT SOFT TISSUE NECK W/CONTRAST MATERIAL Daniel Feliz MD [address] [address] [address] Imaging Referral ID Status Reason Start Date Expiration Date Visits Requested Visits Authorized [id number] Pending Review Auto-Generat ed Referral 01/13/2022 02/12/2023 1 1 Specialty Diagnoses / Procedures Referred By Contac t Referred To Contact Gastroenterology Diagnoses Cervicalgia LPRD (laryngopharyngeal reflux disease) Globus sensation Gastroesophageal reflux disease without esophagitis Procedures CONSULT TO GASTROENTEROLOGY OFFICE/OUTPATIENT [facility] 60-74 MINUTES Daniel Feliz MD [address] [address] Referral ID Status Reason Start Date Expiration Date Visits Requested Visits Authorized [id number] Authorized PCP Requested Referral 01/13/2022 01/13/2023 1 1 Specialty Diagnoses / Procedures Referred By Contac [place] [address] [place] [address] Referral ID Status Reason Start Date Expiration Date Visits Re quested Visits Authorized [id number] Closed 1 1 Specialty Diagnoses / Procedures Referred By Contac t Referred To Contact [facility] Diagnoses Chronic pain syndrome Procedures CONSULT TO [facility]) OFFICE/OUTPATIENT [facility] 60-[place] [address] [place] [address] Referral ID Status Reason Start Date Expiration Date Visits Requested Visits Authorized [id number] Pending Review PCP Requested Referral 05/12/2022 05/12/2023 1 1 Specialty Diagnoses / Procedures Referred By Contac t Referred To Contact Radiology Diagnoses Pain Procedures Fluoro For Surgical Procedures Prem Guthrie MD [address] [place] [address] Referral ID Status Reason Start Date Expiration Date V isits Requested Visits Authorized [id number] Pending Review 06/21/2022 06/21/2023 1 1 Specialty Diagnoses / Procedures Referred By Contac t Referred To Contact Endocrinology Diagnoses High triglycerides Heriberto Hill MD [address] [place] [address] [place] [address] [facility] ENDOCRINOLOGY [address] [place] [address] Referral ID Status Reason Start Date Expiration Date V isits Requested Visits Authorized [id number] Authorized 11/22/2022 11/23/2023 3 3 Scheduling Instructions Please call the Endocrinology Clinic at [phone] to schedule an appointment if one was not made for you today. Question Answer Patient to be evaluated for: Lipid Disorder [12] Comments No prior visits in Endocrinology Specialty Diagnoses / Procedures Referred By Contac t Referred To Contact Gastroenterology Diagnoses Fatty liver Heriberto Hill MD [address] [place] [address] [address] [place] [id number] [facility] LIVER [address] [place] [address] Referral ID Status Reason Start Date Expiration Date V isits Requested Visits Authorized [id number] Authorized 11/22/2022 11/23/2023 3 3 Scheduling Instructions Please call the Liver Clinic at to schedule an appointment if one was not made for you today. Question Answer Reason for Referral: Fatty Liver [9] Which Liver clinic should the patient be scheduled in? LIVER CLINIC Comments No prior visits in Liver Specialty Diagnoses / Procedures Referred By Contac t Referred To Contact [facility] Diagnoses Post-operative state Other specified injury of extensor muscle, fascia and tendon of left thumb at wrist and hand level, initial encounter Procedures CONSULT TO AIRCRAFT LOG CLERK OCCUPATIONAL THERAPY EVAL HIGH COMPLEX 60 MINS Brock Valdez PA-C [address] [place] [address] [facility] [address] [address] Referral ID Status Reason Start Date Expiration Date Visits Requested Visits Authorized [id number] Pending Review Auto-Generat ed Referral 12/29/2022 12/29/2023 1 1 Specialty Diagnoses / Procedures Referred By Contac t Referred To Contact Orthopedics Diagnoses Arthritis of carpometacarpal (CMC) joint of both thumbs Procedures CONSULT TO ORTHOPAEDIC SURGERY OFFICE/OUTPATIENT [facility] 60 MINUTES Facundo Pena DO [address] [place] [address] Referral ID Status Reason Start Date Expiration Date Visits Requested Visits Authorized [id number] Authorized PCP Requested Referral 08/10/2023 08/09/2024 1 1 Specialty Diagnoses / Procedures Referred By Contac t Referred To Contact Diagnoses Primary arthrosis of first carpometacarpal joints, bilateral Procedures [facility] PRE-SURGICAL PLANNING CONSULT Karli Acevedo PA-C [address] [place] [address] Referral ID Status Reason Start Date Expiration Date Visits Requested Visits Authorized [id number] Ref Not Required PCP Requested Referral 11/04/2023 11/03/2024 1 1 Specialty Diagnoses / Procedures Referred By Contac t Referred To Contact [facility] Diagnoses Postoperative state Procedures CONSULT TO AIRCRAFT LOG CLERK OCCUPATIONAL THERAPY [facility] COMPLEX 60 MINS Rik Rosenthal MD [address] [place] [address] [facility] [address] [address] Referral ID Status Reason Start Date Expiration Date Visits Requested Visits Authorized [id number] Pending Review Auto-Generat ed Referral 12/28/2023 12/27/2024 1 1 Specialty Diagnoses / Procedures Referred By Contac t Referred To Contact Neurology Diagnoses Post-concussion headache Procedures CONSULT TO NEUROLOGY OFFICE/OUTPATIENT [facility] 60 MINUTES Day Holman MD [address] [place] [address] Referral ID Status Reason Start Date Expiration Date Visits Requested Visits Authorized [id number] Authorized PCP Requested Referral 02/08/2024 02/07/2025 1 1 Specialty Diagnoses / Procedures Referred By Contac t Referred To Contact Pain Management Diagnoses Pain in both feet Procedures CONSULT TO PAIN MGT OFFICE/OUTPATIENT [facility] 60 MINUTES Mya Rachel APRN.CNP, DNP [address] [place] [address] Referral ID Status Reason Start Date Expiration Date Visits Requested Visits Authorized [id number] Authorized PCP Requested Referral 4 02/28/2025 1 1 Specialty Diagnoses / Procedures Referred By Contac t Referred To Contact Vascular Medicine Diagnoses Pain in both feet Procedures CONSULT TO VASCULAR MEDICINE OFFICE/OUTPATIENT [facility] 60 MINUTES Mya Rachel APRN.CNP, DNP [address] [place] [address] Referral ID Status Reason Start Date Expiration Date Visits Requested Visits Authorized [id number] Authorized PCP Requested Referral 4 02/28/2025 1 1 Specialty Diagnoses / Procedures Referred By Contac t Referred To Contact Podiatry Diagnoses Pain in both feet Procedures CONSULT TO PODIATRY OFFICE/OUTPATIENT [facility] 60 MINUTES Mya Rachel APRN.CNP, DNP [address] [place] [address] Referral ID Status Reason Start Date Expiration Date Visits Requested Visits Authorized [id number] Authorized PCP Requested Referral 4 02/28/2025 1 1 Medications Administered Section Inactive Administered Medications - up to 3 most recent administrations Medication Order MAR Action Action Date Dose Rate Site betamethasone acetate-betamethasone sodium phosphate 6 mg injection (CELESTONE) 6 mg, Injection - FOR ORTHO USE ONLY, ONE TIME INJECTION, 1 dose, Starting on Tue09/09/21 at 1417, Until Tue09/09/21 at 1417 Given 09/09/2021 2:17 PM EDT 6 mg lidocaine (PF) 10 mg/mL (1 %) 1 mL injection (XYLOCAINE) 1 mL, Injection - FOR ORTHO USE ONLY, ONE TIME INJECTION, 1 dose, Starting on Tue09/09/21 at 1417, Until Tue09/09/21 at 1417 Given 09/09/2021 2:17 PM EDT 1 mL Inactive Administered Medications - up to 3 most recent administrations Medication Order MAR Action Action Date Dose Rate Site lidocaine (PF) 10 mg/mL (1 %) 4 mL injection (XYLOCAINE) 4 mL, Injection - FOR ORTHO USE ONLY, ONE TIME INJECTION, 1 dose, Starting on Tue11/10/21 at 1424, Until Tue11/10/21 at 1424 Given 11/10/2021 2:24 PM EDT 4 mL triamcinolone acetonide 40 mg injection (KeNALog 40) 40 mg, Injection - FOR ORTHO USE ONLY, ONE TIME INJECTION, 1 dose, Starting on Tue11/10/21 at 1424, Until Tue11/10/21 at 1424 Given 11/10/2021 2:24 PM EDT 40 mg Inactive Administered Medications - up to 3 most recent administrations Medication Order MAR Action Action Date Dose Rate Site hylan G-F 20 48 mg/6 mL 48 mg injection (SYNVISC-ONE) 48 mg, Injection - FOR ORTHO USE ONLY, ONE TIME INJECTION, 1 dose, Starting on Tue12/04/21 at 0826, Until Tue12/04/21 at 0826 Given 12/04/2021 8:26 AM EDT 48 mg Health Concerns Infection Onset Date Last Indicated Resolved Time COVID-19 Rule-Out 09/21/2021 09/21/2021 Chief Complaint and Reason for Visit Chief Complaint l hip pain Chief Complaint Fall, abdominal dist ention Chief Complaint E23.0 Z71.3 Fall, abdominal distention sycope x1 week Additional Source Comments (unrecognized sect ion and content) No Status Records FoundNo Status Records FoundNo Status Records FoundNo Status Records FoundNo Status Records FoundNo Status Records FoundNo Status Records FoundNo Status Records FoundNo Status Records FoundNo Status Records FoundNo Status Records Found INFORMATION SOURCE (unrecogn ized section and content) DATE CREATED AUTHOR 04/09/2020 [facility] DATE CREATED AUTHOR AUTHOR'S ORGANIZ ATION 10/06/2020 [facility] DATE CREATED AUTHOR AUTHOR'S ORGANIZ ATION 06/15/2022 [facility] DATE CREATED AUTHOR AUTHOR'S ORGANIZ ATION 10/10/2022 [facility] DATE CREATED AUTHOR AUTHOR'S ORGANIZ ATION 12/08/2022 [facility] DATE CREATED AUTHOR AUTHOR'S ORGANIZ ATION 12/14/2022 [facility] DATE CREATED AUTHOR AUTHOR'S ORGANIZ ATION 12/20/2022 [facility] DATE CREATED AUTHOR AUTHOR'S ORGANIZ ATION 12/30/2022 [facility] DATE CREATED AUTHOR AUTHOR'S ORGANIZ ATION 02/05/2024 [facility] DATE CREATED AUTHOR AUTHOR'S ORGANIZ ATION 02/08/2024 [facility] EPIC DATE CREATED AUTHOR AUTHOR'S ORGANIZ ATION 03/15/2024 [facility] Source Comments (unrecognize d section and content) In the event this informatio n is protected by the Federal Confidentiality of Alcohol and Drug Abuse Patient Records regulations: The Federal rules restrict any use of the information to criminally investigate or prosecute any alcohol or drug abuse patient.[facility] the event this information is protected by the Federal Confidentiality of Alcohol and Drug Abuse Patient Records regulations: The Federal rules restrict any use of the information to criminally investigate or prosecute any alcohol or drug abuse patient.[facility] the event this information is protected by the Federal Confidentiality of Alcohol and Drug Abuse Patient Records regulations: The Federal rules restrict any use of the information to criminally investigate or prosecute any alcohol or drug abuse patient.[facility] the event this information is protected by the Federal Confidentiality of Alcohol and Drug Abuse Patient Records regulations: The Federal rules restrict any use of the information to criminally investigate or prosecute any alcohol or drug abuse patient.[facility]In the event this information is protected by the Federal Confidentiality of Alcohol and Drug Abuse Patient Records regulations: The Federal rules restrict any use of the information to criminally investigate or prosecute any alcohol or drug abuse patient.[facility]In the event this information is protected by the Federal Confidentiality of Alcohol and Drug Abuse Patient Records regulations: The Federal rules restrict any use of the information to criminally investigate or prosecute any alcohol or drug abuse patient.[facility]In the event this information is protected by the Federal Confidentiality of Alcohol and Drug Abuse Patient Records regulations: The Federal rules restrict any use of the information to criminally investigate or prosecute any alcohol or drug abuse patient.[facility] HospitalIn the event this information is protected by the Federal Confidentiality of Alcohol and Drug Abuse Patient Records regulations: The Federal rules restrict any use of the information to criminally investigate or prosecute any alcohol or drug abuse patient.[facility] HospitalIn the event this information is protected by the Federal Confidentiality of Alcohol and Drug Abuse Patient Records regulations: The Federal rules restrict any use of the information to criminally investigate or prosecute any alcohol or drug abuse patient.[facility] HospitalIn the event this information is protected by the Federal Confidentiality of Alcohol and Drug Abuse Patient Records regulations: The Federal rules restrict any use of the information to criminally investigate or prosecute any alcohol or drug abuse patient.[facility] HospitalIn the event this information is protected by the Federal Confidentiality of Alcohol and Drug Abuse Patient Records regulations: The Federal rules restrict any use of the information to criminally investigate or prosecute any alcohol or drug abuse patient.[facility] HospitalIn the event this information is protected by the Federal Confidentiality of Alcohol and Drug Abuse Patient Records regulations: The Federal rules restrict any use of the information to criminally investigate or prosecute any alcohol or drug abuse patient.[facility] HospitalIn the event this information is protected by the Federal Confidentiality of Alcohol and Drug Abuse Patient Records regulations: The Federal rules restrict any use of the information to criminally investigate or prosecute any alcohol or drug abuse patient.[facility] HospitalIn the event this information is protected by the Federal Confidentiality of Alcohol and Drug Abuse Patient Records regulations: The Federal rules restrict any use of the information to criminally investigate or prosecute any alcohol or drug abuse patient.[facility] HospitalIn the event this information is protected by the Federal Confidentiality of Alcohol and Drug Abuse Patient Records regulations: The Federal rules restrict any use of the information to criminally investigate or prosecute any alcohol or drug abuse patient.[facility] HospitalIn the event this information is protected by the Federal Confidentiality of Alcohol and Drug Abuse Patient Records regulations: The Federal rules restrict any use of the information to criminally investigate or prosecute any alcohol or drug abuse patient.[facility] HospitalIn the event this information is protected by the Federal Confidentiality of Alcohol and Drug Abuse Patient Records regulations: The Federal rules restrict any use of the information to criminally investigate or prosecute any alcohol or drug abuse patient.[facility] HospitalIn the event this information is protected by the Federal Confidentiality of Alcohol and Drug Abuse Patient Records regulations: The Federal rules restrict any use of the information to criminally investigate or prosecute any alcohol or drug abuse patient.[facility] HospitalIn the event this information is protected by the Federal Confidentiality of Alcohol and Drug Abuse Patient Records regulations: The Federal rules restrict any use of the information to criminally investigate or prosecute any alcohol or drug abuse patient.[facility] HospitalIn the event this information is protected by the Federal Confidentiality of Alcohol and Drug Abuse Patient Records regulations: The Federal rules restrict any use of the information to criminally investigate or prosecute any alcohol or drug abuse patient.[facility] HospitalIn the event this information is protected by the Federal Confidentiality of Alcohol and Drug Abuse Patient Records regulations: The Federal rules restrict any use of the information to criminally investigate or prosecute any alcohol or drug abuse patient.[facility] HospitalIn the event this information is protected by the Federal Confidentiality of Alcohol and Drug Abuse Patient Records regulations: The Federal rules restrict any use of the information to criminally investigate or prosecute any alcohol or drug abuse patient.[facility] HospitalIn the event this information is protected by the Federal Confidentiality of Alcohol and Drug Abuse Patient Records regulations: The Federal rules restrict any use of the information to criminally investigate or prosecute any alcohol or drug abuse patient.[facility] HospitalIn the event this information is protected by the Federal Confidentiality of Alcohol and Drug Abuse Patient Records regulations: The Federal rules restrict any use of the information to criminally investigate or prosecute any alcohol or drug abuse patient.[facility] HospitalIn the event this information is protected by the Federal Confidentiality of Alcohol and Drug Abuse Patient Records regulations: The Federal rules restrict any use of the information to criminally investigate or prosecute any alcohol or drug abuse patient.[facility] HospitalIn the event this information is protected by the Federal Confidentiality of Alcohol and Drug Abuse Patient Records regulations: The Federal rules restrict any use of the information to criminally investigate or prosecute any alcohol or drug abuse patient.[facility] HospitalIn the event this information is protected by the Federal Confidentiality of Alcohol and Drug Abuse Patient Records regulations: The Federal rules restrict any use of the information to criminally investigate or prosecute any alcohol or drug abuse patient.[facility] HospitalIn the event this information is protected by the Federal Confidentiality of Alcohol and Drug Abuse Patient Records regulations: The Federal rules restrict any use of the information to criminally investigate or prosecute any alcohol or drug abuse patient.[facility] HospitalIn the event this information is protected by the Federal Confidentiality of Alcohol and Drug Abuse Patient Records regulations: The Federal rules restrict any use of the information to criminally investigate or prosecute any alcohol or drug abuse patient.[facility] HospitalIn the event this information is protected by the Federal Confidentiality of Alcohol and Drug Abuse Patient Records regulations: The Federal rules restrict any use of the information to criminally investigate or prosecute any alcohol or drug abuse patient.[facility] HospitalIn the event this information is protected by the Federal Confidentiality of Alcohol and Drug Abuse Patient Records regulations: The Federal rules restrict any use of the information to criminally investigate or prosecute any alcohol or drug abuse patient.[facility] HospitalIn the event this information is protected by the Federal Confidentiality of Alcohol and Drug Abuse Patient Records regulations: The Federal rules restrict any use of the information to criminally investigate or prosecute any alcohol or drug abuse patient.[facility] HospitalIn the event this information is protected by the Federal Confidentiality of Alcohol and Drug Abuse Patient Records regulations: The Federal rules restrict any use of the information to criminally investigate or prosecute any alcohol or drug abuse patient.[facility] HospitalIn the event this information is protected by the Federal Confidentiality of Alcohol and Drug Abuse Patient Records regulations: The Federal rules restrict any use of the information to criminally investigate or prosecute any alcohol or drug abuse patient.[facility] HospitalIn the event this information is protected by the Federal Confidentiality of Alcohol and Drug Abuse Patient Records regulations: The Federal rules restrict any use of the information to criminally investigate or prosecute any alcohol or drug abuse patient.[facility] HospitalIn the event this information is protected by the Federal Confidentiality of Alcohol and Drug Abuse Patient Records regulations: The Federal rules restrict any use of the information to criminally investigate or prosecute any alcohol or drug abuse patient.[facility] HospitalIn the event this information is protected by the Federal Confidentiality of Alcohol and Drug Abuse Patient Records regulations: The Federal rules restrict any use of the information to criminally investigate or prosecute any alcohol or drug abuse patient.[facility] HospitalIn the event this information is protected by the Federal Confidentiality of Alcohol and Drug Abuse Patient Records regulations: The Federal rules restrict any use of the information to criminally investigate or prosecute any alcohol or drug abuse patient.[facility] HospitalIn the event this information is protected by the Federal Confidentiality of Alcohol and Drug Abuse Patient Records regulations: The Federal rules restrict any use of the information to criminally investigate or prosecute any alcohol or drug abuse patient.[facility] HospitalIn the event this information is protected by the Federal Confidentiality of Alcohol and Drug Abuse Patient Records regulations: The Federal rules restrict any use of the information to criminally investigate or prosecute any alcohol or drug abuse patient.[facility] HospitalIn the event this information is protected by the Federal Confidentiality of Alcohol and Drug Abuse Patient Records regulations: The Federal rules restrict any use of the information to criminally investigate or prosecute any alcohol or drug abuse patient.[facility] HospitalIn the event this information is protected by the Federal Confidentiality of Alcohol and Drug Abuse Patient Records regulations: The Federal rules restrict any use of the information to criminally investigate or prosecute any alcohol or drug abuse patient.[facility] HospitalIn the event this information is protected by the Federal Confidentiality of Alcohol and Drug Abuse Patient Records regulations: The Federal rules restrict any use of the information to criminally investigate or prosecute any alcohol or drug abuse patient.[facility] HospitalIn the event this information is protected by the Federal Confidentiality of Alcohol and Drug Abuse Patient Records regulations: The Federal rules restrict any use of the information to criminally investigate or prosecute any alcohol or drug abuse patient.[facility] HospitalIn the event this information is protected by the Federal Confidentiality of Alcohol and Drug Abuse Patient Records regulations: The Federal rules restrict any use of the information to criminally investigate or prosecute any alcohol or drug abuse patient.[facility] HospitalIn the event this information is protected by the Federal Confidentiality of Alcohol and Drug Abuse Patient Records regulations: The Federal rules restrict any use of the information to criminally investigate or prosecute any alcohol or drug abuse patient.[facility] HospitalIn the event this information is protected by the Federal Confidentiality of Alcohol and Drug Abuse Patient Records regulations: The Federal rules restrict any use of the information to criminally investigate or prosecute any alcohol or drug abuse patient.[facility] HospitalIn the event this information is protected by the Federal Confidentiality of Alcohol and Drug Abuse Patient Records regulations: The Federal rules restrict any use of the information to criminally investigate or prosecute any alcohol or drug abuse patient.[facility] HospitalIn the event this information is protected by the Federal Confidentiality of Alcohol and Drug Abuse Patient Records regulations: The Federal rules restrict any use of the information to criminally investigate or prosecute any alcohol or drug abuse patient.[facility] HospitalIn the event this information is protected by the Federal Confidentiality of Alcohol and Drug Abuse Patient Records regulations: The Federal rules restrict any use of the information to criminally investigate or prosecute any alcohol or drug abuse patient.[facility] HospitalIn the event this information is protected by the Federal Confidentiality of Alcohol and Drug Abuse Patient Records regulations: The Federal rules restrict any use of the information to criminally investigate or prosecute any alcohol or drug abuse patient.[facility] HospitalIn the event this information is protected by the Federal Confidentiality of Alcohol and Drug Abuse Patient Records regulations: The Federal rules restrict any use of the information to criminally investigate or prosecute any alcohol or drug abuse patient.[facility] HospitalIn the event this information is protected by the Federal Confidentiality of Alcohol and Drug Abuse Patient Records regulations: The Federal rules restrict any use of the information to criminally investigate or prosecute any alcohol or drug abuse patient.[facility] HospitalIn the event this information is protected by the Federal Confidentiality of Alcohol and Drug Abuse Patient Records regulations: The Federal rules restrict any use of the information to criminally investigate or prosecute any alcohol or drug abuse patient.[facility] HospitalIn the event this information is protected by the Federal Confidentiality of Alcohol and Drug Abuse Patient Records regulations: The Federal rules restrict any use of the information to criminally investigate or prosecute any alcohol or drug abuse patient.[facility] HospitalIn the event this information is protected by the Federal Confidentiality of Alcohol and Drug Abuse Patient Records regulations: The Federal rules restrict any use of the information to criminally investigate or prosecute any alcohol or drug abuse patient.[facility] HospitalIn the event this information is protected by the Federal Confidentiality of Alcohol and Drug Abuse Patient Records regulations: The Federal rules restrict any use of the information to criminally investigate or prosecute any alcohol or drug abuse patient.[facility] HospitalIn the event this information is protected by the Federal Confidentiality of Alcohol and Drug Abuse Patient Records regulations: The Federal rules restrict any use of the information to criminally investigate or prosecute any alcohol or drug abuse patient.[facility] HospitalIn the event this information is protected by the Federal Confidentiality of Alcohol and Drug Abuse Patient Records regulations: The Federal rules restrict any use of the information to criminally investigate or prosecute any alcohol or drug abuse patient.[facility] HospitalIn the event this information is protected by the Federal Confidentiality of Alcohol and Drug Abuse Patient Records regulations: The Federal rules restrict any use of the information to criminally investigate or prosecute any alcohol or drug abuse patient.[facility] HospitalIn the event this information is protected by the Federal Confidentiality of Alcohol and Drug Abuse Patient Records regulations: The Federal rules restrict any use of the information to criminally investigate or prosecute any alcohol or drug abuse patient.[facility] HospitalIn the event this information is protected by the Federal Confidentiality of Alcohol and Drug Abuse Patient Records regulations: The Federal rules restrict any use of the information to criminally investigate or prosecute any alcohol or drug abuse patient.[facility] HospitalIn the event this information is protected by the Federal Confidentiality of Alcohol and Drug Abuse Patient Records regulations: The Federal rules restrict any use of the information to criminally investigate or prosecute any alcohol or drug abuse patient.[facility] HospitalIn the event this information is protected by the Federal Confidentiality of Alcohol and Drug Abuse Patient Records regulations: The Federal rules restrict any use of the information to criminally investigate or prosecute any alcohol or drug abuse patient.[facility] HospitalIn the event this information is protected by the Federal Confidentiality of Alcohol and Drug Abuse Patient Records regulations: The Federal rules restrict any use of the information to criminally investigate or prosecute any alcohol or drug abuse patient.[facility] HospitalIn the event this information is protected by the Federal Confidentiality of Alcohol and Drug Abuse Patient Records regulations: The Federal rules restrict any use of the information to criminally investigate or prosecute any alcohol or drug abuse patient.[facility] HospitalIn the event this information is protected by the Federal Confidentiality of Alcohol and Drug Abuse Patient Records regulations: The Federal rules restrict any use of the information to criminally investigate or prosecute any alcohol or drug abuse patient.[facility] HospitalIn the event this information is protected by the Federal Confidentiality of Alcohol and Drug Abuse Patient Records regulations: The Federal rules restrict any use of the information to criminally investigate or prosecute any alcohol or drug abuse patient.[facility] HospitalIn the event this information is protected by the Federal Confidentiality of Alcohol and Drug Abuse Patient Records regulations: The Federal rules restrict any use of the information to criminally investigate or prosecute any alcohol or drug abuse patient.[facility] HospitalIn the event this information is protected by the Federal Confidentiality of Alcohol and Drug Abuse Patient Records regulations: The Federal rules restrict any use of the information to criminally investigate or prosecute any alcohol or drug abuse patient.[facility] HospitalIn the event this information is protected by the Federal Confidentiality of Alcohol and Drug Abuse Patient Records regulations: The Federal rules restrict any use of the information to criminally investigate or prosecute any alcohol or drug abuse patient.[facility] HospitalIn the event this information is protected by the Federal Confidentiality of Alcohol and Drug Abuse Patient Records regulations: The Federal rules restrict any use of the information to criminally investigate or prosecute any alcohol or drug abuse patient.[facility] HospitalIn the event this information is protected by the Federal Confidentiality of Alcohol and Drug Abuse Patient Records regulations: The Federal rules restrict any use of the information to criminally investigate or prosecute any alcohol or drug abuse patient.[facility] HospitalIn the event this information is protected by the Federal Confidentiality of Alcohol and Drug Abuse Patient Records regulations: The Federal rules restrict any use of the information to criminally investigate or prosecute any alcohol or drug abuse patient.[facility] HospitalIn the event this information is protected by the Federal Confidentiality of Alcohol and Drug Abuse Patient Records regulations: The Federal rules restrict any use of the information to criminally investigate or prosecute any alcohol or drug abuse patient.[facility] HospitalIn the event this information is protected by the Federal Confidentiality of Alcohol and Drug Abuse Patient Records regulations: The Federal rules restrict any use of the information to criminally investigate or prosecute any alcohol or drug abuse patient.[facility] HospitalIn the event this information is protected by the Federal Confidentiality of Alcohol and Drug Abuse Patient Records regulations: The Federal rules restrict any use of the information to criminally investigate or prosecute any alcohol or drug abuse patient.[facility]In the event this information is protected by the Federal Confidentiality of Alcohol and Drug Abuse Patient Records regulations: The Federal rules restrict any use of the information to criminally investigate or prosecute any alcohol or drug abuse patient.[facility]In the event this information is protected by the Federal Confidentiality of Alcohol and Drug Abuse Patient Records regulations: The Federal rules restrict any use of the information to criminally investigate or prosecute any alcohol or drug abuse patient.[facility] HospitalIn the event this information is protected by the Federal Confidentiality of Alcohol and Drug Abuse Patient Records regulations: The Federal rules restrict any use of the information to criminally investigate or prosecute any alcohol or drug abuse patient.[facility]In the event this information is protected by the Federal Confidentiality of Alcohol and Drug Abuse Patient Records regulations: The Federal rules restrict any use of the information to criminally investigate or prosecute any alcohol or drug abuse patient.[facility]In the event this information is protected by the Federal Confidentiality of Alcohol and Drug Abuse Patient Records regulations: The Federal rules restrict any use of the information to criminally investigate or prosecute any alcohol or drug abuse patient.[facility]In the event this information is protected by the Federal Confidentiality of Alcohol and Drug Abuse Patient Records regulations: The Federal rules restrict any use of the information to criminally investigate or prosecute any alcohol or drug abuse patient.[facility] HospitalIn the event this information is protected by the Federal Confidentiality of Alcohol and Drug Abuse Patient Records regulations: The Federal rules restrict any use of the information to criminally investigate or prosecute any alcohol or drug abuse patient.[facility] HospitalIn the event this information is protected by the Federal Confidentiality of Alcohol and Drug Abuse Patient Records regulations: The Federal rules restrict any use of the information to criminally investigate or prosecute any alcohol or drug abuse patient.[facility] HospitalIn the event this information is protected by the Federal Confidentiality of Alcohol and Drug Abuse Patient Records regulations: The Federal rules restrict any use of the information to criminally investigate or prosecute any alcohol or drug abuse patient.[facility] HospitalIn the event this information is protected by the Federal Confidentiality of Alcohol and Drug Abuse Patient Records regulations: The Federal rules restrict any use of the information to criminally investigate or prosecute any alcohol or drug abuse patient.[facility] HospitalIn the event this information is protected by the Federal Confidentiality of Alcohol and Drug Abuse Patient Records regulations: The Federal rules restrict any use of the information to criminally investigate or prosecute any alcohol or drug abuse patient.[facility] HospitalIn the event this information is protected by the Federal Confidentiality of Alcohol and Drug Abuse Patient Records regulations: The Federal rules restrict any use of the information to criminally investigate or prosecute any alcohol or drug abuse patient.[facility] HospitalIn the event this information is protected by the Federal Confidentiality of Alcohol and Drug Abuse Patient Records regulations: The Federal rules restrict any use of the information to criminally investigate or prosecute any alcohol or drug abuse patient.[facility] HospitalIn the event this information is protected by the Federal Confidentiality of Alcohol and Drug Abuse Patient Records regulations: The Federal rules restrict any use of the information to criminally investigate or prosecute any alcohol or drug abuse patient.[facility] HospitalIn the event this information is protected by the Federal Confidentiality of Alcohol and Drug Abuse Patient Records regulations: The Federal rules restrict any use of the information to criminally investigate or prosecute any alcohol or drug abuse patient.[facility] HospitalIn the event this information is protected by the Federal Confidentiality of Alcohol and Drug Abuse Patient Records regulations: The Federal rules restrict any use of the information to criminally investigate or prosecute any alcohol or drug abuse patient.[facility] HospitalIn the event this information is protected by the Federal Confidentiality of Alcohol and Drug Abuse Patient Records regulations: The Federal rules restrict any use of the information to criminally investigate or prosecute any alcohol or drug abuse patient.[facility] HospitalIn the event this information is protected by the Federal Confidentiality of Alcohol and Drug Abuse Patient Records regulations: The Federal rules restrict any use of the information to criminally investigate or prosecute any alcohol or drug abuse patient.[facility] HospitalIn the event this information is protected by the Federal Confidentiality of Alcohol and Drug Abuse Patient Records regulations: The Federal rules restrict any use of the information to criminally investigate or prosecute any alcohol or drug abuse patient.[facility] HospitalIn the event this information is protected by the Federal Confidentiality of Alcohol and Drug Abuse Patient Records regulations: The Federal rules restrict any use of the information to criminally investigate or prosecute any alcohol or drug abuse patient.[facility] HospitalIn the event this information is protected by the Federal Confidentiality of Alcohol and Drug Abuse Patient Records regulations: The Federal rules restrict any use of the information to criminally investigate or prosecute any alcohol or drug abuse patient.[facility] HospitalIn the event this information is protected by the Federal Confidentiality of Alcohol and Drug Abuse Patient Records regulations: The Federal rules restrict any use of the information to criminally investigate or prosecute any alcohol or drug abuse patient.[facility] HospitalIn the event this information is protected by the Federal Confidentiality of Alcohol and Drug Abuse Patient Records regulations: The Federal rules restrict any use of the information to criminally investigate or prosecute any alcohol or drug abuse patient.[facility] HospitalIn the event this information is protected by the Federal Confidentiality of Alcohol and Drug Abuse Patient Records regulations: The Federal rules restrict any use of the information to criminally investigate or prosecute any alcohol or drug abuse patient.[facility] HospitalIn the event this information is protected by the Federal Confidentiality of Alcohol and Drug Abuse Patient Records regulations: The Federal rules restrict any use of the information to criminally investigate or prosecute any alcohol or drug abuse patient.[facility] HospitalIn the event this information is protected by the Federal Confidentiality of Alcohol and Drug Abuse Patient Records regulations: The Federal rules restrict any use of the information to criminally investigate or prosecute any alcohol or drug abuse patient.[facility] HospitalIn the event this information is protected by the Federal Confidentiality of Alcohol and Drug Abuse Patient Records regulations: The Federal rules restrict any use of the information to criminally investigate or prosecute any alcohol or drug abuse patient.[facility] HospitalIn the event this information is protected by the Federal Confidentiality of Alcohol and Drug Abuse Patient Records regulations: The Federal rules restrict any use of the information to criminally investigate or prosecute any alcohol or drug abuse patient.[facility] HospitalIn the event this information is protected by the Federal Confidentiality of Alcohol and Drug Abuse Patient Records regulations: The Federal rules restrict any use of the information to criminally investigate or prosecute any alcohol or drug abuse patient.[facility] HospitalIn the event this information is protected by the Federal Confidentiality of Alcohol and Drug Abuse Patient Records regulations: The Federal rules restrict any use of the information to criminally investigate or prosecute any alcohol or drug abuse patient.[facility] HospitalIn the event this information is protected by the Federal Confidentiality of Alcohol and Drug Abuse Patient Records regulations: The Federal rules restrict any use of the information to criminally investigate or prosecute any alcohol or drug abuse patient.[facility] HospitalIn the event this information is protected by the Federal Confidentiality of Alcohol and Drug Abuse Patient Records regulations: The Federal rules restrict any use of the information to criminally investigate or prosecute any alcohol or drug abuse patient.[facility] HospitalIn the event this information is protected by the Federal Confidentiality of Alcohol and Drug Abuse Patient Records regulations: The Federal rules restrict any use of the information to criminally investigate or prosecute any alcohol or drug abuse patient.[facility] HospitalIn the event this information is protected by the Federal Confidentiality of Alcohol and Drug Abuse Patient Records regulations: The Federal rules restrict any use of the information to criminally investigate or prosecute any alcohol or drug abuse patient.[facility] HospitalIn the event this information is protected by the Federal Confidentiality of Alcohol and Drug Abuse Patient Records regulations: The Federal rules restrict any use of the information to criminally investigate or prosecute any alcohol or drug abuse patient.[facility] HospitalIn the event this information is protected by the Federal Confidentiality of Alcohol and Drug Abuse Patient Records regulations: The Federal rules restrict any use of the information to criminally investigate or prosecute any alcohol or drug abuse patient.[facility] HospitalIn the event this information is protected by the Federal Confidentiality of Alcohol and Drug Abuse Patient Records regulations: The Federal rules restrict any use of the information to criminally investigate or prosecute any alcohol or drug abuse patient.[facility] HospitalIn the event this information is protected by the Federal Confidentiality of Alcohol and Drug Abuse Patient Records regulations: The Federal rules restrict any use of the information to criminally investigate or prosecute any alcohol or drug abuse patient.[facility] HospitalIn the event this information is protected by the Federal Confidentiality of Alcohol and Drug Abuse Patient Records regulations: The Federal rules restrict any use of the information to criminally investigate or prosecute any alcohol or drug abuse patient.[facility] HospitalIn the event this information is protected by the Federal Confidentiality of Alcohol and Drug Abuse Patient Records regulations: The Federal rules restrict any use of the information to criminally investigate or prosecute any alcohol or drug abuse patient.[facility] HospitalIn the event this information is protected by the Federal Confidentiality of Alcohol and Drug Abuse Patient Records regulations: The Federal rules restrict any use of the information to criminally investigate or prosecute any alcohol or drug abuse patient.[facility] HospitalIn the event this information is protected by the Federal Confidentiality of Alcohol and Drug Abuse Patient Records regulations: The Federal rules restrict any use of the information to criminally investigate or prosecute any alcohol or drug abuse patient.[facility] HospitalIn the event this information is protected by the Federal Confidentiality of Alcohol and Drug Abuse Patient Records regulations: The Federal rules restrict any use of the information to criminally investigate or prosecute any alcohol or drug abuse patient.[facility] HospitalIn the event this information is protected by the Federal Confidentiality of Alcohol and Drug Abuse Patient Records regulations: The Federal rules restrict any use of the information to criminally investigate or prosecute any alcohol or drug abuse patient.[facility] HospitalIn the event this information is protected by the Federal Confidentiality of Alcohol and Drug Abuse Patient Records regulations: The Federal rules restrict any use of the information to criminally investigate or prosecute any alcohol or drug abuse patient.[facility] HospitalIn the event this information is protected by the Federal Confidentiality of Alcohol and Drug Abuse Patient Records regulations: The Federal rules restrict any use of the information to criminally investigate or prosecute any alcohol or drug abuse patient.[facility] HospitalIn the event this information is protected by the Federal Confidentiality of Alcohol and Drug Abuse Patient Records regulations: The Federal rules restrict any use of the information to criminally investigate or prosecute any alcohol or drug abuse patient.[facility] HospitalIn the event this information is protected by the Federal Confidentiality of Alcohol and Drug Abuse Patient Records regulations: The Federal rules restrict any use of the information to criminally investigate or prosecute any alcohol or drug abuse patient.[facility] HospitalIn the event this information is protected by the Federal Confidentiality of Alcohol and Drug Abuse Patient Records regulations: The Federal rules restrict any use of the information to criminally investigate or prosecute any alcohol or drug abuse patient.[facility] HospitalIn the event this information is protected by the Federal Confidentiality of Alcohol and Drug Abuse Patient Records regulations: The Federal rules restrict any use of the information to criminally investigate or prosecute any alcohol or drug abuse patient.[facility] HospitalIn the event this information is protected by the Federal Confidentiality of Alcohol and Drug Abuse Patient Records regulations: The Federal rules restrict any use of the information to criminally investigate or prosecute any alcohol or drug abuse patient.[facility] HospitalIn the event this information is protected by the Federal Confidentiality of Alcohol and Drug Abuse Patient Records regulations: The Federal rules restrict any use of the information to criminally investigate or prosecute any alcohol or drug abuse patient.[facility] HospitalIn the event this information is protected by the Federal Confidentiality of Alcohol and Drug Abuse Patient Records regulations: The Federal rules restrict any use of the information to criminally investigate or prosecute any alcohol or drug abuse patient.[facility] HospitalIn the event this information is protected by the Federal Confidentiality of Alcohol and Drug Abuse Patient Records regulations: The Federal rules restrict any use of the information to criminally investigate or prosecute any alcohol or drug abuse patient.[facility] HospitalIn the event this information is protected by the Federal Confidentiality of Alcohol and Drug Abuse Patient Records regulations: The Federal rules restrict any use of the information to criminally investigate or prosecute any alcohol or drug abuse patient.[facility] HospitalIn the event this information is protected by the Federal Confidentiality of Alcohol and Drug Abuse Patient Records regulations: The Federal rules restrict any use of the information to criminally investigate or prosecute any alcohol or drug abuse patient.[facility] HospitalIn the event this information is protected by the Federal Confidentiality of Alcohol and Drug Abuse Patient Records regulations: The Federal rules restrict any use of the information to criminally investigate or prosecute any alcohol or drug abuse patient.[facility] HospitalIn the event this information is protected by the Federal Confidentiality of Alcohol and Drug Abuse Patient Records regulations: The Federal rules restrict any use of the information to criminally investigate or prosecute any alcohol or drug abuse patient.[facility] HospitalIn the event this information is protected by the Federal Confidentiality of Alcohol and Drug Abuse Patient Records regulations: The Federal rules restrict any use of the information to criminally investigate or prosecute any alcohol or drug abuse patient.[facility] HospitalIn the event this information is protected by the Federal Confidentiality of Alcohol and Drug Abuse Patient Records regulations: The Federal rules restrict any use of the information to criminally investigate or prosecute any alcohol or drug abuse patient.[facility] HospitalIn the event this information is protected by the Federal Confidentiality of Alcohol and Drug Abuse Patient Records regulations: The Federal rules restrict any use of the information to criminally investigate or prosecute any alcohol or drug abuse patient.[facility] HospitalIn the event this information is protected by the Federal Confidentiality of Alcohol and Drug Abuse Patient Records regulations: The Federal rules restrict any use of the information to criminally investigate or prosecute any alcohol or drug abuse patient.[facility] HospitalIn the event this information is protected by the Federal Confidentiality of Alcohol and Drug Abuse Patient Records regulations: The Federal rules restrict any use of the information to criminally investigate or prosecute any alcohol or drug abuse patient.[facility] HospitalIn the event this information is protected by the Federal Confidentiality of Alcohol and Drug Abuse Patient Records regulations: The Federal rules restrict any use of the information to criminally investigate or prosecute any alcohol or drug abuse patient.[facility] HospitalIn the event this information is protected by the Federal Confidentiality of Alcohol and Drug Abuse Patient Records regulations: The Federal rules restrict any use of the information to criminally investigate or prosecute any alcohol or drug abuse patient.[facility] HospitalIn the event this information is protected by the Federal Confidentiality of Alcohol and Drug Abuse Patient Records regulations: The Federal rules restrict any use of the information to criminally investigate or prosecute any alcohol or drug abuse patient.[facility] HospitalIn the event this information is protected by the Federal Confidentiality of Alcohol and Drug Abuse Patient Records regulations: The Federal rules restrict any use of the information to criminally investigate or prosecute any alcohol or drug abuse patient.[facility] HospitalIn the event this information is protected by the Federal Confidentiality of Alcohol and Drug Abuse Patient Records regulations: The Federal rules restrict any use of the information to criminally investigate or prosecute any alcohol or drug abuse patient.[facility] HospitalIn the event this information is protected by the Federal Confidentiality of Alcohol and Drug Abuse Patient Records regulations: The Federal rules restrict any use of the information to criminally investigate or prosecute any alcohol or drug abuse patient.[facility] HospitalIn the event this information is protected by the Federal Confidentiality of Alcohol and Drug Abuse Patient Records regulations: The Federal rules restrict any use of the information to criminally investigate or prosecute any alcohol or drug abuse patient.[facility] HospitalIn the event this information is protected by the Federal Confidentiality of Alcohol and Drug Abuse Patient Records regulations: The Federal rules restrict any use of the information to criminally investigate or prosecute any alcohol or drug abuse patient.[facility] HospitalIn the event this information is protected by the Federal Confidentiality of Alcohol and Drug Abuse Patient Records regulations: The Federal rules restrict any use of the information to criminally investigate or prosecute any alcohol or drug abuse patient.[facility] HospitalIn the event this information is protected by the Federal Confidentiality of Alcohol and Drug Abuse Patient Records regulations: The Federal rules restrict any use of the information to criminally investigate or prosecute any alcohol or drug abuse patient.[facility] HospitalIn the event this information is protected by the Federal Confidentiality of Alcohol and Drug Abuse Patient Records regulations: The Federal rules restrict any use of the information to criminally investigate or prosecute any alcohol or drug abuse patient.[facility] HospitalIn the event this information is protected by the Federal Confidentiality of Alcohol and Drug Abuse Patient Records regulations: The Federal rules restrict any use of the information to criminally investigate or prosecute any alcohol or drug abuse patient.[facility] HospitalIn the event this information is protected by the Federal Confidentiality of Alcohol and Drug Abuse Patient Records regulations: The Federal rules restrict any use of the information to criminally investigate or prosecute any alcohol or drug abuse patient.[facility] HospitalIn the event this information is protected by the Federal Confidentiality of Alcohol and Drug Abuse Patient Records regulations: The Federal rules restrict any use of the information to criminally investigate or prosecute any alcohol or drug abuse patient.[facility] HospitalIn the event this information is protected by the Federal Confidentiality of Alcohol and Drug Abuse Patient Records regulations: The Federal rules restrict any use of the information to criminally investigate or prosecute any alcohol or drug abuse patient.[facility] HospitalIn the event this information is protected by the Federal Confidentiality of Alcohol and Drug Abuse Patient Records regulations: The Federal rules restrict any use of the information to criminally investigate or prosecute any alcohol or drug abuse patient.[facility] HospitalIn the event this information is protected by the Federal Confidentiality of Alcohol and Drug Abuse Patient Records regulations: The Federal rules restrict any use of the information to criminally investigate or prosecute any alcohol or drug abuse patient.[facility] HospitalIn the event this information is protected by the Federal Confidentiality of Alcohol and Drug Abuse Patient Records regulations: The Federal rules restrict any use of the information to criminally investigate or prosecute any alcohol or drug abuse patient.[facility] HospitalIn the event this information is protected by the Federal Confidentiality of Alcohol and Drug Abuse Patient Records regulations: The Federal rules restrict any use of the information to criminally investigate or prosecute any alcohol or drug abuse patient.[facility] HospitalIn the event this information is protected by the Federal Confidentiality of Alcohol and Drug Abuse Patient Records regulations: The Federal rules restrict any use of the information to criminally investigate or prosecute any alcohol or drug abuse patient.[facility] HospitalIn the event this information is protected by the Federal Confidentiality of Alcohol and Drug Abuse Patient Records regulations: The Federal rules restrict any use of the information to criminally investigate or prosecute any alcohol or drug abuse patient.[facility] HospitalIn the event this information is protected by the Federal Confidentiality of Alcohol and Drug Abuse Patient Records regulations: The Federal rules restrict any use of the information to criminally investigate or prosecute any alcohol or drug abuse patient.[facility] HospitalIn the event this information is protected by the Federal Confidentiality of Alcohol and Drug Abuse Patient Records regulations: The Federal rules restrict any use of the information to criminally investigate or prosecute any alcohol or drug abuse patient.[facility] HospitalIn the event this information is protected by the Federal Confidentiality of Alcohol and Drug Abuse Patient Records regulations: The Federal rules restrict any use of the information to criminally investigate or prosecute any alcohol or drug abuse patient.[facility] HospitalIn the event this information is protected by the Federal Confidentiality of Alcohol and Drug Abuse Patient Records regulations: The Federal rules restrict any use of the information to criminally investigate or prosecute any alcohol or drug abuse patient.[facility] Reason for Visit (unrecogniz ed section and content) Reason Comments Knee Pain Specialty Diagnoses / Procedures Referred By Contac t Referred To Contact ORTHOPAEDIC SURGERY Diagnoses Unilateral primary osteoarthritis, left knee OSTEOARTHRITIS LEFT KNEE Procedures SYNVISC OR SYNVISC-ONE SYNVISC ONE OR PAYOR PREFERRED Facundo Pena, DO [address] [place] [address] [facility] [address] [place] [address] Referral ID Status Reason Start Date Expiration Date Visits Re quested Visits Authorized [id number] Closed 11/11/2021 05/22/2022 1 1 Reason Comments CMN Reason Comments Pain GI issues Dry Mouth and throat Nausea Breathing Problem Weight Problem gained 40 lbs. Reason Comments EGD Instructions Reason Comments Schedule Surgery Reason Comments Reschedule PACC Reason Comments Patient Update Reason Comments Breathing Problem Reason Comments Head Injury Reason Comments Radiology XR Reason Comments Physical f/u results. discuss testosterone- issue with refills and labs. Reason Comments Pain Specialty Diagnoses / Procedures Referred By Contac t Referred To Contact Orthopedics / ORTHOPAEDIC SURGERY Diagnoses Toe pain Right foot Procedures FEROZ ESTABLISH Self Morgan, Gatito, V, DPM [address] [place] [address] Referral ID Status Reason Start Date Expiration Date Visits Requested Visits Authorized [id number] Authorized Financial Clearance Not Required 08/30/2021 09/29/2021 99 99 Reason Comments Medication Question Results Reason Comments Cough Reason Comments Information Reason Comments Appointment Reason Comments Low Testosterone Reason Comments Cough Pt has had cough for 2 weeks. Pt c/o foamy slight yello phlegm. Pt is unable to sleep. Pt has been taking sudafed. Consult Pt would like new en do doctor. Reason Comments cmn Reason Comments Left Knee Pain Reason Comments Refill Request Reason Comments Follow Up Reason Comments Throat Problem Reason Comments Recheck SOB. unable to use c pap since biopsy because it causes him to cough, feels like cant breathe at night or in AM, gets very anxious, still has no voice, difficulty swallowing pills. Reason Comments Hand Injury Reason Comments Difficulty Swallowing Information Reason Comments Consult Reason Comments Throat Problem New. Consult per Iliana Robertson MD. Throat clearing, hoarseness, losing voice, difficulty swallowing, choking/gagging, and throat pain after having EGD on 08/12/2021. Protonix 40mg. Specialty Diagnoses / Procedures Referred By Urmila little Referred To Contact Ent - Otolaryngology Diagnoses Swallowing pain Loss of voice Procedures CONSULT TO ENT OFFICE/OUTPATIENT [facility] 60-[place] [address] [place] [address] Referral ID Status Reason Start Date Expiration Date V isits Requested Visits Authorized [id number] Closed PCP Requested Referral 12/03/2021 12/03/2022 1 1 Reason Comments Pain, Throat Reason Comments Difficulty Swallowing Pain, Throat Reason Comments Med Change Request Reason Comments Throat Problem Est. Patient having pain since May. Negative EGD Biopsy in June. Clearing throat continuous. Raspy voice. Causing sleep loss. Reason Comments Patient Question Needs OV Reason Comments Chest Pain Reason Comments Multiple Concerns Reason Comments Clinical Update Reason Comments behavioral health social work Reason Comments Anxiety Panic attacks, SOB, COTO. Would like low dose hydroxyzine added, had it in ER and it helped. Reason Comments Recheck Lexapro- still havin g anxiety during the day but sleeping better. Has been drinking a lot of coffee with sugar to help migraines. Reason Comments Weight Problem Reason Comments Headache Specialty Diagnoses / Procedures Referred By Urmila little Referred To Contact Neurology Diagnoses Post-concussion headache Procedures CONSULT TO NEUROLOGY OFFICE/OUTPATIENT [facility] 60-74 MINUTES Day Holman MD [address] [place] [address] Referral ID Status Reason Start Date Expiration Date V isits Requested Visits Authorized [id number] Closed PCP Requested Referral 04/08/2022 04/08/2023 1 1 Reason Comments Medication Problem Reason Onset Date Comments Refill Request 06/04/2022 Reason Comments Migraines Specialty Diagnoses / Procedures Referred By Urmila little Referred To Contact Diagnoses Primary osteoarthritis of left hip PRIMARY OSTEOARTHRITIS OF LEFT HIP Procedures DC ARTHRP ACETBLR/PROX FEM PROSTC AGRFT/ALGRFT LEFT TOTAL HIP ATHROPLASTY ANTERIOR REPLACEMENT CHRIS ACCOLADE STEM AND TRIDENT 2 CUP SYSTEM (PAT WITH GYPSY) 7:30 AM Prem Guthrie MD [address] [place] [address] [facility] [address] [place] [address] Referral ID Status Reason Start Date Expiration Date Visits Re quested Visits Authorized [id number] 1 1 Reason Onset Date Comments Refill Request 06/29/2022 Specialty Diagnoses / Procedures Referred By Urmila little Referred To Contact Physical Therapist / Physical Therapy Diagnoses Psoas tendinitis of left side Lumbar radiculopathy Iliotibial band tendinitis of left side Procedures 30 VISITS THEN AUTH EFF 07/31/21 100% MEDICAID ALLOWABLE Prem Guthrie MD [address] [place] [address] [facility] [address] [place] [address] Referral ID Status Reason Start Date Expiration Date V isits Requested Visits Authorized [id number] Open Specialty Services Required 09/03/2022 09/03/2023 30 30 Reason Comments Thumb Injury Reason Comments Trauma/complex Medical Situation Fall Reason Comments Electronic Communication [facility] ED Note Reason Comments Fall Specialty Diagnoses / Procedures Referred By Urmila little Referred To Contact Hospital Medicine Diagnoses TRAUMA ALERT 62 male fall from chair yesterday hit head and abdomen, -LOC, no thinners, pancreatic contusion Procedures Carlos Eduardo Bills DO [address] [place] [address] [employer] [address] [place] [address] Phone: [phone] Referral ID Status Reason Start Date Expiration Date Visits Re quested Visits Authorized [id number] 3 3 Reason Comments Hospital follow-up Pain In multiple sites Reason Onset Date Comments Population Health Navigation Outreach 12/01/2022 HCC Gaps Reason Comments Pain Deep cut with knife two weeks ago Pain still present DOI 11/18 Reason Comments Dizziness Reason Comments New Patient Left thumb injury. D OI 11/18/2022. Right hand dominant. Reason Comments Musculoskeletal Problem Reason Comments Electronic Communication ED report [facility] Reason Comments Patient Question Reason Onset Date Comments No Show 12/29/2022 Reason Comments Post Op Left hand and wrist Reason Onset Date Comments Symptoms 01/08/2023 Reason Comments Shortness of Breath Reason Comments Pain (foot) Pt c/o pain in the b ottom of the right heel that does go up the achilles. Pt relates that the pain started about 7 months ago. Reason Onset Date Comments Refill Request 01/21/2023 Reason Comments Opened In Error Reason Comments Radio Gen RMP Specialty Diagnoses / Procedures Referred By Contac t Referred To Contact XR IMAGING Diagnoses Pain Procedures XR HAND GENERAL 3V PA/LAT/OBL LEFT RADEX HAND MINIMUM 3 VIEWS Mariah Anderson PA-C [address] [place] [address] [place] [address] Referral ID Status Reason Start Date Expiration Date V isits Requested Visits Authorized [id number] Closed Auto-Generate d Referral 12/02/2022 01/01/2024 1 1 Reason Comments Radio Gen RMP Reason Comments Behavioral Health/Social Work Reason Comments Head Injury Reason Onset Date Comments Refill Request 08/09/2023 Reason Comments Established Patient Pain Reason Comments Follow Up Would like to discus s his recent brain dx Discussion Would like to discus s his usual situation - house issue Patient has been underneath house arrest for quite some time Reason Comments New Pain Reason Onset Date Comments Refill Request 11/09/2023 Reason Comments PC Dizziness/Syncope Specialty Diagnoses / Procedures Referred By Contac t Referred To Contact Diagnoses Primary arthrosis of first carpometacarpal joints, bilateral Procedures [facility] PRE-SURGICAL PLANNING CONSULT Karli AcevedoTELLY [address] [place] [address] Referral ID Status Reason Start Date Expiration Date Visits Requested Visits Authorized [id number] Ref Not Required PCP Requested Referral 11/04/2023 11/03/2024 1 1 Reason Comments Preparations For Surgery Preop blood wor k Reason Comments Medication Problem Patient Update Medication Refill / Nurse Triage Call Request Reason Onset Date Comments Refill Request 12/19/2023 Reason Comments ED Follow-up Reason Comments Radiology XR Specialty Diagnoses / Procedures Referred By Contac t Referred To Contact XR IMAGING Diagnoses Post-operative state Procedures XR DIGIT GENERAL 3V FRONTAL/LAT/OBL LEFT RADEX FINGR MINIMUM 2 VIEWS Rik Rosenthal MD [address] [place] [address] [place] [address] Referral ID Status Reason Start Date Expiration Date V isits Requested Visits Authorized [id number] Closed Auto-Generate d Referral 12/26/2023 01/24/2025 1 1 Reason Comments Post Op Reason Comments Radiology XR Specialty Diagnoses / Procedures Referred By Contac t Referred To Contact XR IMAGING Diagnoses Thumb pain, unspecified laterality Procedures XR DIGIT GENERAL 3V FRONTAL/LAT/OBL RIGHT RADEX FINGR MINIMUM 2 VIEWS Rik Rosenthal MD [address] [place] [address] [place] [address] Referral ID Status Reason Start Date Expiration Date V isits Requested Visits Authorized [id number] Closed Auto-Generate d Referral 10/17/2023 11/15/2024 1 1 Specialty Diagnoses / Procedures Referred By Contac t Referred To Contact XR IMAGING Diagnoses Post-operative state Procedures XR DIGIT GENERAL 3V FRONTAL/LAT/OBL LEFT RADEX FINGR MINIMUM 2 VIEWS Karli Acevedo PA-C [address] [place] [address] [place] [address] Referral ID Status Reason Start Date Expiration Date V isits Requested Visits Authorized [id number] Closed Auto-Generate d Referral 01/11/2024 02/09/2025 1 1 Reason Comments Ankle Injury Reason Onset Date Comments Refill Request 01/17/2024 Reason Comments Post Op Reason Onset Date Comments Refill Request 01/24/2024 Reason Comments Established Patient Post Op Reason Comments OT EVAL Patient Education Specialty Diagnoses / Procedures Referred By Contact Referred To Contact Occupational Therapy / OCCUPATIONAL THERAPY Diagnoses POST OP 12/13/2023 - Left thumb carpometacarpal arthroplasty Procedures NEW RS OT HAND Rik Rosenthal MD [address] [place] [address] Mima Simpson, OTR/L [address] [place] [address] Referral ID Status Reason Start Date Expiration Date V isits Requested Visits Authorized [id number] Authorized 05/02/2023 05/01/2024 8 8 Reason Onset Date Comments Advice/health education 02/03/2024 Specialty Diagnoses / Procedures Referred By Contac t Referred To Contact Orthopedics / ORTHOPAEDIC SURGERY Diagnoses Thumb Pain (Benedicto) Procedures FEROZ ESTABLISH Self Facundo Pena, [address] [place] [address] Referral ID Status Reason Start Date Expiration Date V isits Requested Visits Authorized [id number] Closed Financial Clearance Not Required 05/02/2020 06/01/2020 99 99 Reason Comments Established Patient Follow Up Reason Comments Radiology MRI Specialty Diagnoses / Procedures Referred By Contac t Referred To Contact MR IMAGING Diagnoses Elbow sprain, right, initial encounter Procedures MRI ELBOW WO IVCON RT MRI, JOINT UPPER EXTREM Murphy Bucio MD [address] [place] [address] [place] [address] Referral ID Status Reason Start Date Expiration Date V isits Requested Visits Authorized [id number] Closed Auto-Generate d Referral 12/13/2019 01/09/2020 3 3 Reason Comments Orders Reason Comments Foot pain Reason Comments B/L foot pain Has had pain x 2 mon thsMostly on toesPrevious injury's headaches restless legs Reason Onset Date Comments Med Refill 03/05/2024 Reason Onset Date Comments Med Refill 03/06/2024 Care Teams (unrecognized sec tion and content) Stone Repairer Relationship Specialty [place] [address] [place] [address] PCP - General Internal Medicine 09/24/14 Pcp, No Family Practice 09/16/14 Stone Repairer Relationship Specialty [place] [address] [place] [address] PCP - General Internal Medicine 09/24/14 Pcp, No Family Practice 09/16/14 Stone Repairer Relationship Specialty [place] [address] [place] [address] PCP - General Internal Medicine 09/24/14 Pcp, No Family Practice 09/16/14 Stone Repairer Relationship Specialty Start Date End Date Rosa Robertson [place] [id number] [place] [address] PCP - General Internal Medicine 09/24/14 Pcp, No Family Practice 09/16/14 Stone Repairer Relationship Specialty Start Date End Date Rosa Robertson [place] [id number] [place] [address] PCP - General Internal Medicine 09/24/14 Pcp, No Family Practice 09/16/14 Stone Repairer Relationship Specialty Start Date End Date Rosa Robertson [place] [id number] [place] [address] PCP - General Internal Medicine 09/24/14 Pcp, No Family Practice 09/16/14 Stone Repairer Relationship Specialty [place] [address] [place] [address] PCP - General Internal Medicine 09/24/14 Pcp, No Family Practice 09/16/14 Stone Repairer Relationship Specialty [place] [address] [place] [address] PCP - General Internal Medicine 09/24/14 Pcp, No Family Practice 09/16/14 Stone Repairer Relationship Specialty Start Date End Date Rosa Robertson MD [address] [place] [address] PCP - General Internal Medicine 09/24/14 Pcp, No Family Practice 09/16/14 Stone Repairer Relationship Specialty Start Date End Date Rosa Robertson MD [address] [place] [address] PCP - General Internal Medicine 09/24/14 Pcp, No Family Practice 09/16/14 Stone Repairer Relationship Specialty Start Date End Date Rosa Robertson MD [address] [place] [address] PCP - General Internal Medicine 09/24/14 Pcp, No Family Practice 09/16/14 Stone Repairer Relationship Specialty Start Date End Date Rosa Robertson MD [address] [place] [address] PCP - General Internal Medicine 09/24/14 Pcp, No Family Practice 09/16/14 Stone Repairer Relationship Specialty Start Date End Date Rosa Robertson MD [address] [place] [address] PCP - General Internal Medicine 09/24/14 Pcp, No Family Practice 09/16/14 Stone Repairer Relationship Specialty Start Date End Date Rosa Robertson MD [address] [place] [address] PCP - General Internal Medicine 09/24/14 Pcp, No Family Practice 09/16/14 Stone Repairer Relationship Specialty Start Date End Date Rosa Robertson MD [address] [place] [address] PCP - General Internal Medicine 09/24/14 Pcp, No Family Practice 09/16/14 Stone Repairer Relationship Specialty Start Date End Date Rosa Robertson [place] [id number] [place] [address] PCP - General Internal Medicine 09/24/14 Pcp, No Family Practice 09/16/14 Stone Repairer Relationship Specialty Start Date End Date Rosa Robertson MD [address] [place] [address] PCP - General Internal Medicine 09/24/14 Pcp, No Family Practice 09/16/14 Stone Repairer Relationship Specialty Start Date End Date Rosa Robertson MD [address] [place] [address] PCP - General Internal Medicine 09/24/14 Pcp, No Family Practice 09/16/14 Stone Repairer Relationship Specialty Start Date End Date Rosa Robertson MD [address] [place] [address] PCP - General Internal Medicine 09/24/14 Pcp, No Family Practice 09/16/14 Stone Repairer Relationship Specialty Start Date End Date Rosa Robertson MD [address] [place] [address] PCP - General Internal Medicine 09/24/14 Pcp, No Family Practice 09/16/14 Stone Repairer Relationship Specialty Start Date End Date Rosa Robertson [place] [id number] [place] [address] PCP - General Internal Medicine 09/24/14 Pcp, No Family Practice 09/16/14 Stone Repairer Relationship Specialty Start Date End Date Rosa Robertson [place] [id number] [place] [address] PCP - General Internal Medicine 09/24/14 Pcp, No Family Practice 09/16/14 Stone Repairer Relationship Specialty Start Date End Date Rosa Robertson MD [address] [place] [address] PCP - General Internal Medicine 09/24/14 Pcp, No Family Practice 09/16/14 Stone Repairer Relationship Specialty [place] [address] [place] [address] PCP - General Internal Medicine 09/24/14 Pcp, No Family Practice 09/16/14 Stone Repairer Relationship Specialty [place] [address] [place] [address] PCP - General Internal Medicine 09/24/14 Pcp, No Family Practice 09/16/14 Stone Repairer Relationship Specialty [place] [address] [place] [address] PCP - General Internal Medicine 09/24/14 Pcp, No Family Practice 09/16/14 Stone Repairer Relationship Specialty [place] [address] [place] [address] PCP - General Internal Medicine 09/24/14 Pcp, No Family Practice 09/16/14 Stone Repairer Relationship Specialty [place] [address] [place] [address] PCP - General Internal Medicine 09/24/14 Pcp, No Family Practice 09/16/14 Stone Repairer Relationship Specialty [place] [address] [place] [address] PCP - General Internal Medicine 09/24/14 Pcp, No Family Practice 09/16/14 Stone Repairer Relationship Specialty [place] [address] [place] [address] PCP - General Internal Medicine 09/24/14 Pcp, No Family Practice 09/16/14 Stone Repairer Relationship Specialty Start Date End Date Rosa Robertson [place] [id number] [place] [address] PCP - General Internal Medicine 09/24/14 Pcp, No Family Practice 09/16/14 Stone Repairer Relationship Specialty Start Date End Date Rosa Robertson MD [address] [place] [address] PCP - General Internal Medicine 09/24/14 Pcp, No Family Medicine 09/16/14 Stone Repairer Relationship Specialty Start Date End Date Rosa Robertson MD [address] [place] [address] PCP - General Internal Medicine 09/24/14 Pcp, No Family Medicine 09/16/14 Stone Repairer Relationship Specialty Start Date End Date Rosa Robertson MD [address] [place] [address] PCP - General Internal Medicine 09/24/14 Pcp, No Family Medicine 09/16/14 Stone Repairer Relationship Specialty Start Date End Date Rosa Robertson MD [address] [place] [address] PCP - General Internal Medicine 09/24/14 Pcp, No Family Medicine 09/16/14 Stone Repairer Relationship Specialty Start Date End Date Rosa Robertson [place] [id number] [place] [address] PCP - General Internal Medicine 09/24/14 Pcp, No Family Medicine 09/16/14 Stone Repairer Relationship Specialty Start Date End Date Rosa Robertson MD [id number] [place] [address] PCP - General Internal Medicine 09/24/14 Pcp, No Family Medicine 09/16/14 Stone Repairer Relationship Specialty Start Date End Date Rosa Robertson MD [id number] [place] [address] PCP - General Internal Medicine 09/24/14 Pcp, No Family Medicine 09/16/14 Stone Repairer Relationship Specialty Start Date End Date Rosa Robertson MD [address] [place] [address] PCP - General Internal Medicine 09/24/14 Pcp, No Family Medicine 09/16/14 Stone Repairer Relationship Specialty Start Date End Date Rosa Robertson MD [address] [place] [address] PCP - General Internal Medicine 09/24/14 Pcp, No Family Medicine 09/16/14 Stone Repairer Relationship Specialty Start Date End Date Rosa Robertson MD [address] [place] [address] PCP - General Internal Medicine 09/24/14 Pcp, No Family Medicine 09/16/14 Stone Repairer Relationship Specialty Start Date End Date Rosa Robertson MD [address] [place] [address] PCP - General Internal Medicine 09/24/14 Pcp, No Family Medicine 09/16/14 Stone Repairer Relationship Specialty Start Date End Date Rosa Robertson MD [address] [place] [address] PCP - General Internal Medicine 09/24/14 Pcp, No Family Medicine 09/16/14 Stone Repairer Relationship Specialty Start Date End Date Rosa Robertson [place] [id number] [place] [address] PCP - General Internal Medicine 09/24/14 Pcp, No Family Medicine 09/16/14 Stone Repairer Relationship Specialty Start Date End Date Rosa Robertson MD [address] [place] [address] PCP - General Internal Medicine 09/24/14 Pcp, No Family Medicine 09/16/14 Stone Repairer Relationship Specialty [place] [address] [place] [address] PCP - General Internal Medicine 09/24/14 Pcp, No Family Medicine 09/16/14 Stone Repairer Relationship Specialty Start Date End Date Rosa Robertson MD [id number] [place] [address] PCP - General Internal Medicine 09/24/14 Pcp, No Family Medicine 09/16/14 Stone Repairer Relationship Specialty Start Date End Date Rosa Robertson MD [address] [place] [address] PCP - General 04/14/22 Stone Repairer Relationship Specialty Start Date End Date Rosa Robertson MD [address] [place] [address] PCP - General 04/14/22 Team Status: Active Member Role Status Dates Rosa Robertson MD Primary Care Provider Active Team Status: Inactive Member Role Status Dates Rosa Robertson MD Primary Care Provider Active Hector Cheng MD Emergency Provider Active Stone Repairer Relationship Specialty Start Date End Date Rosa Robertson [place] [id number] [place] [address] PCP - General 04/14/22 Stone Repairer Relationship Specialty Start Date End Date Rosa Robertson MD [id number] [place] [address] PCP - General 04/14/22 Stone Repairer Relationship Specialty Start Date End Date Rosa Robertson MD [id number] [place] [address] PCP - General 04/14/22 Stone Repairer Relationship Specialty [place] [address] [place] [address] PCP - General Internal Medicine 09/24/14 Pcp, No Family Medicine 09/16/14 Stone Repairer Relationship Specialty [place] [address] [place] [address] PCP - General Internal Medicine 09/24/14 Pcp, No, ACC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VISOR Family Medicine 09/16/14 Stone Repairer Relationship Specialty [place] [address] [place] [address] PCP - General Internal Medicine 11/18/22 Team Status: Inactive Member Role Status Dates Rosa Robertson MD Primary Care Provider Active Messi Marie MD Attending Provider Active Team Status: Inactive Member Role Status Dates Rosa Robertson MD Primary Care Provider Active Chapincito Toure DO Emergency Provider Active Stone Repairer Relationship Specialty Start Date End Date Rosa Robertson MD [address] [place] [address] PCP - General Internal Medicine 09/24/14 Pcp, Sonali, ACC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VISOR Family Medicine 09/16/14 Stone Repairer Relationship Specialty [place] [address] [place] [address] PCP - General Internal Medicine 11/18/22 Stone Repairer Relationship Specialty [place] [address] [place] [address] PCP - General Internal Medicine 11/18/22 Stone Repairer Relationship Specialty [place] [address] [place] [address] PCP - General Internal Medicine 11/18/22 Stone Repairer Relationship Specialty [place] [address] [place] [address] PCP - General Internal Medicine 09/24/14 Pcp No, ACC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VISOR Family Medicine 09/16/14 Stone Repairer Relationship Specialty [place] [address] [place] [address] PCP - General Internal Medicine 09/24/14 Pcp No, ACC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VISOR Family Medicine 09/16/14 Stone Repairer Relationship Specialty [place] [address] [place] [address] PCP - General Internal Medicine 09/24/14 Pcp No, ACC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VISOR Family Medicine 09/16/14 Stone Repairer Relationship Specialty [place] [address] [place] [address] PCP - General Internal Medicine 09/24/14 Pcp No, ACC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VISOR Family Medicine 09/16/14 Stone Repairer Relationship Specialty [place] [address] [place] [address] PCP - General Internal Medicine 09/24/14 Pcp No, ACC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VISOR Family Medicine 09/16/14 Stone Repairer Relationship Specialty [place] [address] [place] [address] PCP - General Internal Medicine 09/24/14 Pcp, No, ACC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VISOR Family Medicine 09/16/14 Team Status: Inactive Member Role Status Dates Perry Ledesma , DO Emergency Provider Active Rosa Robertson MD Primary Care Provider Active Stone Repairer Relationship Specialty [place] [address] [facility] [place] [address] PCP - General Internal Medicine 09/24/14 Pcp, No, ACC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VISOR Family Medicine 09/16/14 Stone Repairer Relationship Specialty [place] [address] [facility] [place] [address] PCP - General Internal Medicine 11/18/22 Stone Repairer Relationship Specialty [place] [address] [facility] [place] [address] PCP - General Internal Medicine 09/24/14 Pcp, No, ACC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VISOR Family Medicine 09/16/14 Stone Repairer Relationship Specialty [place] [address] [facility] [place] [address] PCP - General Internal Medicine 09/24/14 Pcp, No, ACC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VISOR Family Medicine 09/16/14 Stone Repairer Relationship Specialty [place] [address] [facility] [place] [address] PCP - General Internal Medicine 09/24/14 Pcp, No, ACC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VISOR Family Medicine 09/16/14 Stone Repairer Relationship Specialty [place] [address] [facility] [place] [address] PCP - General Internal Medicine 09/24/14 Pcp, No, ACC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VISOR Family Medicine 09/16/14 Stone Repairer Relationship Specialty [place] [address] [place] [address] PCP - General Internal Medicine 09/24/14 Pcp, No, ACC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VISOR Family Medicine 09/16/14 Stone Repairer Relationship Specialty [place] [address] [place] [address] PCP - General Internal Medicine 09/24/14 Pcp, No, ACC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VISOR Family Medicine 09/16/14 Stone Repairer Relationship Specialty [place] [address] [place] [address] PCP - General Internal Medicine 09/24/14 Pcp, No, ACC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VISOR Family Medicine 09/16/14 Stone Repairer Relationship Specialty [place] [address] [place] [address] PCP - General Internal Medicine 09/24/14 Pcp, No, ACC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VISOR Family Medicine 09/16/14 Stone Repairer Relationship Specialty [place] [address] [place] [address] PCP - General Internal Medicine 09/24/14 Pcp, No, ACC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VISOR Family Medicine 09/16/14 Stone Repairer Relationship Specialty [place] [address] [place] [address] PCP - General Internal Medicine 09/24/14 Pcp, No, ACC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VISOR Family Medicine 09/16/14 Stone Repairer Relationship Specialty [place] [address] [place] [address] PCP - General Internal Medicine 09/24/14 Pcp, No, ACC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VISOR Family Medicine 09/16/14 Stone Repairer Relationship Specialty [place] [address] [place] [address] PCP - General Internal Medicine 09/24/14 Pcp, No, ACC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VISOR Family Medicine 09/16/14 Stone Repairer Relationship Specialty [place] [address] [place] [address] PCP - General Internal Medicine 09/24/14 Pcp No, ACC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VISOR Family Medicine 09/16/14 Stone Repairer Relationship Specialty [place] [address] [place] [address] PCP - General Internal Medicine 09/24/14 Pcp No, ACC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VISOR Family Medicine 09/16/14 Stone Repairer Relationship Specialty [place] [address] [place] [address] PCP - General Internal Medicine 09/24/14 Pcp, No, ACC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VISOR Family Medicine 09/16/14 Stone Repairer Relationship Specialty [place] [address] [place] [address] PCP - General Internal Medicine 09/24/14 Pcp No, ACC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VISOR Family Medicine 09/16/14 Stone Repairer Relationship Specialty [place] [address] [place] [address] PCP - General Internal Medicine 09/24/14 Pcp, No, ACC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VISOR Family Medicine 09/16/14 Stone Repairer Relationship Specialty [place] [address] [facility] [place] [address] PCP - General Internal Medicine 09/24/14 Pcp, No, ACC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VISOR Family Medicine 09/16/14 Stone Repairer Relationship Specialty [place] [address] [place] [address] PCP - General Internal Medicine 09/24/14 Pcp No, ACC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VISOR Family Medicine 09/16/14 Stone Repairer Relationship Specialty [place] [address] [place] [address] PCP - General Internal Medicine 09/24/14 Pcp, No, ACC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VISOR Family Medicine 09/16/14 Stone Repairer Relationship Specialty [place] [address] [place] [address] PCP - General Internal Medicine 09/24/14 Pcp, No, ACC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VISOR Family Medicine 09/16/14 Stone Repairer Relationship Specialty [place] [address] [place] [address] PCP - General Internal Medicine 09/24/14 Pcp, No, ACC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VISOR Family Medicine 09/16/14 Stone Repairer Relationship Specialty [place] [address] [place] [address] PCP - General Internal Medicine 09/24/14 Pcp, No, ACC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VISOR Family Medicine 09/16/14 Stone Repairer Relationship Specialty [place] [address] [facility] [place] [address] PCP - General Internal Medicine 09/24/14 Pcp, No, ACC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VISOR Family Medicine 09/16/14 Stone Repairer Relationship Specialty [place] [address] [place] [address] PCP - General Internal Medicine 09/24/14 Pcp, No, ACC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VISOR Family Medicine 09/16/14 Stone Repairer Relationship Specialty [place] [address] [place] [address] PCP - General Internal Medicine 09/24/14 Pcp, No, ACC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VISOR Family Medicine 09/16/14 Stone Repairer Relationship Specialty [place] [address] [place] [address] PCP - General Internal Medicine 09/24/14 Pcp, No, ACC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VISOR Family Medicine 09/16/14 Stone Repairer Relationship Specialty [place] [address] [place] [address] PCP - General Internal Medicine 09/24/14 Pcp, No, ACC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VISOR Family Medicine 09/16/14 Stone Repairer Relationship Specialty [place] [address] [place] [address] PCP - General Internal Medicine 09/24/14 Pcp, No, ACC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VISOR Family Medicine 09/16/14 Stone Repairer Relationship Specialty [place] [address] [place] [address] PCP - General Internal Medicine 09/24/14 Pcp, No, ACC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VISOR Family Medicine 09/16/14 Stone Repairer Relationship Specialty [place] [address] [place] [address] PCP - General Internal Medicine 09/24/14 Pcp, No, ACC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VISOR Family Medicine 09/16/14 Stone Repairer Relationship Specialty [place] [address] [place] [address] PCP - General Internal Medicine 09/24/14 Pcp, No, ACC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VISOR Family Medicine 09/16/14 Stone Repairer Relationship Specialty [place] [address] [place] [address] PCP - General Internal Medicine 09/24/14 Pcp No, ACC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VISOR Family Medicine 09/16/14 Stone Repairer Relationship Specialty [place] [address] [place] [address] PCP - General Internal Medicine 09/24/14 Pcp, No, ACC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VISOR Family Medicine 09/16/14 Stone Repairer Relationship Specialty [place] [address] [place] [address] PCP - General Internal Medicine 09/24/14 Pcp No, ACC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VISOR Family Medicine 09/16/14 Stone Repairer Relationship Specialty [place] [address] [place] [address] PCP - General Internal Medicine 09/24/14 Pcp, No, ACC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VISOR Family Medicine 09/16/14 Stone Repairer Relationship Specialty [place] [address] [facility] [place] [address] PCP - General Internal Medicine 09/24/14 Pcp, No, ACC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VISOR Family Medicine 09/16/14 Stone Repairer Relationship Specialty [place] [address] [place] [address] PCP - General Internal Medicine 09/24/14 Pcp, No, ACC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VISOR Family Medicine 09/16/14 Stone Repairer Relationship Specialty [place] [address] [place] [address] PCP - General Internal Medicine 09/24/14 Pcp, No, ACC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VISOR Family Medicine 09/16/14 Stone Repairer Relationship Specialty [place] [address] [place] [address] PCP - General Internal Medicine 09/24/14 Pcp, No, ACC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VISOR Family Medicine 09/16/14 Stone Repairer Relationship Specialty [place] [address] [place] [address] PCP - General Internal Medicine 09/24/14 Pcp, No, ACC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VISOR Family Medicine 09/16/14 Stone Repairer Relationship Specialty [place] [address] [place] [address] PCP - General Internal Medicine 09/24/14 Pcp, No, ACC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VISOR Family Medicine 09/16/14 Stone Repairer Relationship Specialty [place] [address] [place] [address] PCP - General Internal Medicine 09/24/14 PcpSonali APRN Family Medicine 09/16/14 Stone Repairer Relationship Specialty [place] [address] [place] [address] PCP - General Internal Medicine 11/18/22 Stone Repairer Relationship Specialty [place] [address] [place] [address] PCP - General Internal Medicine 09/24/14 PcpSonali, ACC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VISOR Family Medicine 09/16/14 Stone Repairer Relationship Specialty [place] [address] [place] [address] PCP - General Internal Medicine 09/24/14 PcpSonali ACC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VISOR Family Medicine 09/16/14 Stone Repairer Relationship Specialty [place] [address] [place] [address] PCP - General Pediatrics 12/06/22 Stone Repairer Relationship Specialty [place] [address] [place] [address] PCP - General Internal Medicine 09/24/14 PcpSonali ACC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VISOR Family Medicine 09/16/14 Stone Repairer Relationship Specialty [place] [address] [place] [address] PCP - General Internal Medicine 09/24/14 PcpSonali APRN Family Medicine 09/16/14 Stone Repairer Relationship Specialty [place] [address] [place] [address] PCP - General Internal Medicine 09/24/14 PcpSonali APRN Family Medicine 09/16/14 Stone Repairer Relationship Specialty [place] [address] [place] [address] PCP - General Pediatrics 12/06/22 Stone Repairer Relationship Specialty [place] [address] [place] [address] PCP - General Pediatrics 12/06/22 Stone Repairer Relationship Specialty [place] [address] [place] [address] PCP - General Internal Medicine 09/24/14 PcpSonali APRN Family Medicine 09/16/14 Goals (unrecognized section and content) Goals may be documented in a n alternate sectionGoals may be documented in an alternate sectionGoals may be documented in an alternate sectionGoals may be documented in an alternate section Scheduled Active and Recently Administ ered Medications (unrecognized section and content) Medication Order 11/20/2022 11/21/2022 11/22/2022 acetaminophen (TYLENOL) tablet 650 mg, Oral, Every 6 hours, First dose on Tue11/19/22 at 1200, Until Discontinued 0527 (Given - Provider: Yessica Christopher RN)1159 (Given - Provider: Amy Clayton RN)1716 (Given - Provider: Amy Clayton, CONCHITA)2311 (Given - Provider: Joya Chase RN) 0501 (Given - Provider: Joya Chase RN)1205 (Given - Provider: Siria Albarado RN)1627 (Given - Provider: Siria Albarado RN)1800 (Hold/Not Given - Provider: Siria Albarado RN - Reason: Previously Administered) 0015 (Given - Provider: Eddy Boyce RN)0616 (Given - Provider: Eddy Boyce RN)1130 (Given - Provider: Lottie Steinberg, CONCHITA)1800 (Due) aluminum & magnesium hydroxide-simethicone (MAALOX ES) 400-400-40 MG/5ML oral suspension (COMPLETED) 30 mL, Oral, STAT, 1 dose, On 11/20/22 at 0930 1055 (Given - Provider: Amy Clayton RN) aspirin EC tablet 81 mg, Oral, DAILY, First dose (after last modification) on 11/20/22 at 0900, Until Discontinued 0804 (Given - Provider: Amy Clayton RN) 0843 (Given - Provider: Amy Clayton RN) 1001 (Given - Provider: Lottie Steinberg RN) atorvastatin (LIPITOR) tablet 40 mg, Oral, DAILY, First dose (after last modification) on 11/20/22 at 0900, Until Discontinued 0804 (Given - Provider: Amy Clayton RN) 0843 (Given - Provider: Amy Clayton RN) 1001 (Given - Provider: Lottie Steinberg RN) cephALEXin (KEFLEX) capsule 500 mg, Oral, 4 TIMES DAILY, 20 doses, First dose (after last modification) on Tue11/21/22 at 1700, Last dose on Tue11/26/22 at 1300 1719 (Given - Provider: Siria Albarado RN)2131 (Given - Provider: Eddy Boyce RN) 1001 (Given - Provider: Lottie Steinberg, CONCHITA)1458 (Given - Provider: Lottie Steinberg, CONCHITA)1643 (Given - Provider: Lottie Steinberg, CONCHITA)2100 (Due) cerovite jr chew tab 1 Tablet, Oral, DAILY, First dose on 11/20/22 at 0900, Until Discontinued 0900 (Given - Provider: Amy Clayton RN) 0843 (Given - Provider: Amy Clayton RN) 1001 (Given - Provider: Lottie Steinberg RN) dicyclomine (BENTYL) 10 MG capsule 20 mg, Oral, 4 TIMES DAILY, First dose (after last modification) on Tue11/22/22 at 1300, Until Discontinued 1458 (Given - Provider: Lottie Steinberg RN)1643 (Given - Provider: Lottie Steinberg RN)2100 (Due) docusate sodium (COLACE) capsule (CANCELED) 100 mg, Oral, 2 TIMES DAILY, First dose on Tue11/19/22 at 0146, Until Discontinued 0900 (Given - Provider: Amy Clayton RN)2100 (Hold/Not Given - Provider: Joya Chase RN - Reason: Not indicated) 0900 (Hold/Not Given - Provider: Amy Clayton RN - Reason: Not indicated) enoxaparin (LOVENOX) 40 MG/0.4ML injection 40 mg (CANCELED) 40 mg, Subcutaneous, DAILY, First dose on Tue11/19/22 at 0900, Until Discontinued 0809 (Given - Provider: Amy Clayton RN) 0850 (Given - Provider: Amy Clayton RN) escitalopram (LEXAPRO) tablet 30 mg 30 mg, Oral, DAILY, First dose on Tue11/19/22 at 0900, Until Discontinued 0803 (Given - Provider: Amy Clayton RN) 0844 (Given - Provider: Amy Clayton RN) 0900 (Hold/Not Given - Provider: Lottie Steinberg RN - Reason: Medication unavailable)1130 (Given - Provider: Lottie Steinberg RN) esomeprazole (NEXIUM) 40 MG injection 40 mg, Intravenous Push, 2 TIMES DAILY, First dose on Tue11/21/22 at 1500, Until Discontinued 1720 (Given - Provider: Siria Albarado RN)2100 (Hold/Not Given - Provider: Eddy Boyce RN - Reason: Previously Administered) 1002 (Given - Provider: Lottie Steinberg, CONCHITA)2100 (Due) esomeprazole (NEXIUM) capsule (CANCELED) 40 mg, Oral, DAILY, First dose on Tue11/19/22 at 0900, Until Discontinued 0804 (Given - Provider: Amy Clayton RN) famotidine (PEPCID) tablet 20 mg, Oral, 2 TIMES DAILY, First dose on Tue11/20/22 at 1230, Until Discontinued 1230 (Given - Provider: Amy Clayton RN)2029 (Given - Provider: Joya Chase RN) 0858 (Given - Provider: Amy Clayton RN)2131 (Given - Provider: Eddy Boyce RN) 1001 (Given - Provider: Lottie Steinberg RN)2100 (Due) fenofibrate (TRICOR) tablet 48 mg, Oral, DAILY, First dose on Tue11/21/22 at 1000, Until Discontinued 1029 (Given - Provider: Amy Clayton RN) 0900 (Hold/Not Given - Provider: Lottie Steinberg RN - Reason: Medication unavailable)1130 (Given - Provider: Lottie Steinberg RN) ferrous sulfate tablet TABS 325 mg, Oral, EVERY OTHER DAY, First dose on Tue11/19/22 at 0900, Until Discontinued 0850 (Given - Provider: Amy Clayton RN) folic acid 1 MG tablet 1 mg, Oral, DAILY, First dose on Tue11/19/22 at 0900, Until Discontinued 0804 (Given - Provider: Amy Clayton RN) 0900 (Given - Provider: Amy Clayton RN) 1001 (Given - Provider: Lottie Steinberg RN) HYDROmorphone (DILAUDID) tablet (COMPLETED) 2 mg, Oral, ONCE, 1 dose, On Tue11/20/22 at 1800 1756 (Given - Provider: Amy Clayton RN) lidocaine (LIDODERM) 5 % patch 2 Patch, Transdermal, EVERY 24 HOURS, First dose on Tue11/19/22 at 1200, Until Discontinued 1202 (Patch Applied - Provider: Amy Clayton RN) 0002 (Patch Removal - Provider: Joya Chase RN)1205 (Patch Applied - Provider: Siria Albarado RN) 0023 (Patch Removal - Provider: Eddy Boyce RN)1130 (Patch Applied - Provider: Lottie Steinberg RN)2330 (Due: Patch Removal - Provider: Lottie Steinberg RN) lidocaine viscous 2 % solution (COMPLETED) 10 mL, Mouth/Throat, STAT, 1 dose, On 11/20/22 at 0930 1055 (Given - Provider: Amy Clayton RN) losartan (COZAAR) tablet (CANCELED) 50 mg, Oral, DAILY, First dose on Tue11/19/22 at 0900, Until Discontinued 0804 (Given - Provider: Amy Clayton RN) 0843 (Given - Provider: Amy Clayton RN) losartan (COZAAR) tablet 100 mg, Oral, DAILY, First dose (after last modification) on Tue11/22/22 at 0900, Until Discontinued 1001 (Given - Provider: Lottie Steinberg RN) magnesium sulfate 2 GM/50ML in 50 mL ivpb (COMPLETED) 2 g (2,000 mg), Intravenous, ONCE, 1 dose, On 11/20/22 at 0330 0304 (IV New Bag - Provider: Yessica Christopher RN) methocarbamol (ROBAXIN) tablet 750 mg, Oral, 4 TIMES DAILY, First dose on Tue11/19/22 at 1300, Until Discontinued 0527 (Given - Provider: Yessica Christopher RN)1159 (Given - Provider: Amy Clayton RN)1716 (Given - Provider: Amy Clayton RN)2311 (Given - Provider: Joya Chase RN) 0501 (Given - Provider: Joya Chase RN)1205 (Given - Provider: Siria Albarado RN)1836 (Given - Provider: Siria Albarado RN) 0015 (Given - Provider: Eddy Boyce RN)0616 (Given - Provider: Eddy Boyce RN)1130 (Given - Provider: Lottie Steinberg RN)1800 (Due - Provider: Tristian Yuen [facility]) metoprolol (TOPROL-XL) 24 hour tablet 50 mg, Oral, DAILY, First dose (after last modification) on Tue11/19/22 at 0900, Until Discontinued 0803 (Given - Provider: Amy Clayton RN) 0843 (Given - Provider: Amy Clayton RN) 1001 (Given - Provider: Lottie Steinberg, CONCHITA) mupirocin (BACTROBAN) 2 % ointment Topical, 3 TIMES DAILY, First dose on 11/21/22 at 1430, Until Discontinued 1643 (Hold/Not Given - Provider: Siria Albarado RN - Reason: Patient refused)2200 (Hold/Not Given - Provider: Eddy Boyce RN - Reason: Patient refused) 0623 (Hold/Not Given - Provider: Eddy Boyce RN - Reason: Patient refused)1400 (Hold/Not Given - Provider: Lottie Steinberg RN - Reason: Patient refused)2200 (Due) nicotine (NICODERM CQ) 21 mg/24HR patch 21 mg, Transdermal, DAILY, First dose on Tue11/19/22 at 0230, Until Discontinued 0200 (Patch Removal - Provider: Yessica Christopher RN)0809 (Patch Applied - Provider: Amy Clayton RN) 0809 (Patch Removal - Provider: Amy Clayton RN)0844 (Patch Applied - Provider: Amy Clayton RN) 1003 (Patch Removal - Provider: Lottie Steinberg, CONCHITA)1006 (Patch Applied - Provider: Lottie Steinberg RN) oxyCODONE immediate release tablet (COMPLETED) 2.5 mg, Oral, Once, 1 dose, On 11/21/22 at 1730 1641 (Given - Provider: Siria Albarado RN) oxyCODONE immediate release tablet (COMPLETED) 2.5 mg, Oral, Once, 1 dose, On 11/21/22 at 1800 1719 (Given - Provider: Siria Albarado RN) PHENobarbital Sodium 65 MG/ML injection (COMPLETED) 97.5 mg, Intravenous Push, EVERY 8 HOURS, 3 doses, First dose on Tue11/19/22 at 0911, Last dose on Tue11/20/22 at 0111 0101 (Given - Provider: Yessica Christopher, CONCHITA) PHENobarbital Sodium 65 MG/ML injection (COMPLETED) 65 mg, Intravenous Push, EVERY 8 HOURS, 3 doses, First dose on Tue11/20/22 at 0911, Last dose on 11/21/22 at 0111 0916 (Given - Provider: Amy Clayton RN)1717 (Given - Provider: mAy Clayton RN) 0050 (Given - Provider: Joya Chase RN) PHENobarbital Sodium 65 MG/ML injection (COMPLETED) 32.5 mg, Intravenous Push, EVERY 8 HOURS, 3 doses, First dose on Tue11/21/22 at 0911, Last dose on Tue11/22/22 at 0111 0845 (Given - Provider: Amy Clayton RN)1720 (Given - Provider: Siria Albarado RN) 0015 (Given - Provider: Eddy Boyce, RN) PHENobarbital Sodium 65 MG/ML injection 32.5 mg, Intravenous Push, EVERY 12 HOURS, 2 doses, First dose on Tue11/22/22 at 0911, Last dose on Tue11/22/22 at 2111 0911 (Given - Provider: Lottie Steinberg RN)2110 (Due) polyethylene glycol (MIRALAX) 17 g packet 17 g, Oral, DAILY, First dose on Tue11/19/22 at 0900, Until Discontinued 09 (Given - Provider: Amy Clayton RN) 09 (Hold/Not Given - Provider: Amy Clayton RN - Reason: Not indicated) 1002 (Given - Provider: Lottie Steinberg RN) potassium chloride 20 MEQ/15ML (10%) oral solution (COMPLETED) 40 mEq, Oral, ONCE, 1 dose, On 11/20/22 at 0330 0527 (Given - Provider: Yessica Christopher, CONCHITA) potassium chloride 20 MEQ/15ML (10%) oral solution (COMPLETED) 40 mEq, Oral, ONCE, 1 dose, On 11/20/22 at 1630 1607 (Given - Provider: Amy Clayton RN) potassium phosphate 15 mmol injection in D5W (COMPLETED) 15 mmol, Intravenous, ONCE, 1 dose, On 11/20/22 at 0330 0347 (IV New Bag - Provider: Yessica Christopher, CONCHITA) senna (SENOKOT) tablet 8.6 mg, Oral, AT BEDTIME, First dose on Tue11/21/22 at 2200, Until Discontinued 2199 (Hold/Not Given - Provider: Eddy Boyce RN - Reason: Not indicated) 2200 (Due) vitamin B-1 (thiamine) 500 mg in dextrose 5 % 100 mL IVPB (COMPLETED)(Linked Group 1) 500 mg, Intravenous, DAILY, 3 doses, First dose on Tue11/19/22 at 0230, Last dose on Tue11/21/22 at 0900 0957 (IV New Bag - Provider: Amy Clayton RN) 0857 (IV New Bag - Provider: Amy Clayton RN) vitamin B-1 (THIAMINE) tablet(Linked Group 1) 250 mg, Oral, DAILY, 3 doses, First dose on Tue11/22/22 at 0900, Last dose on Tue11/24/22 at 0900 1001 (Given - Provider: Lottie Steinberg, CONCHITA) vitamin B-1 (THIAMINE) tablet(Linked Group 1) 100 mg, Oral, DAILY, First dose on Yesi 11/25/22 at 0900, Until Discontinued vitamin B-12 (CYANOCOBALAMIN) tablet 500 mcg, Oral, DAILY, First dose on Tue11/19/22 at 0900, Until Discontinued 0803 (Given - Provider: Amy Clayton RN) 0843 (Given - Provider: Amy Clayton RN) 1002 (Given - Provider: Lottie Steinberg, CONCHITA) Continuous Medication Order 11/20/2022 11/21/2022 11/22/2022 dextrose 143 mL in lactated ringers 1,000 mL (CANCELED) at 175 mL/hr, Intravenous, CONTINUOUS, Starting on 11/20/22 at 0100, Until 11/20/22 at 1611 0110 (IV New Bag - Provider: Yessica Christopher RN)0750 (IV New Bag - Provider: Amy Clayton RN)0800 (Rate Verify - Provider: Amy Clayton RN)0900 (Rate Verify - Provider: Amy Clayton RN)1000 (Rate Verify - Provider: Amy Clayton RN)1100 (Rate Verify - Provider: Amy Clayton RN)1200 (Rate Verify - Provider: Amy Clayton, CONCHITA)1300 (Rate Verify - Provider: Amy Clayton RN)1320 (IV Rate Change - Provider: Amy Clayton RN)1400 (Rate Verify - Provider: Amy Clayton RN)1500 (Rate Verify - Provider: Amy Clayton RN)1600 (Rate Verify - Provider: Amy Clayton RN)1618 (IV Stop - Provider: Amy Clayton RN) insulin regular (HumuLIN R) 100 Units in sodium chloride 0.9 % 100 mL iv infusion (CANCELED) 4 Units/hr (4 mL/hr), Intravenous, CONTINUOUS, Starting on Tue11/19/22 at 0730, Until 11/20/22 at 1611 0609 (IV New Bag - Provider: Yessica Christopher RN)0800 (Rate Verify - Provider: Amy Clayton RN)0900 (Rate Verify - Provider: Amy Clayton RN)1000 (Rate Verify - Provider: Amy Clayton RN)1100 (Rate Verify - Provider: Amy Clayton RN)1200 (Rate Verify - Provider: Amy Clayton RN)1300 (Rate Verify - Provider: Amy Clayton RN)1320 (IV Rate Change - Provider: Amy Clayton RN)1400 (Rate Verify - Provider: Amy Clayton RN)1500 (Rate Verify - Provider: Amy Clayton RN)1600 (Rate Verify - Provider: Amy Clayton RN)1618 (IV Stop - Provider: Amy Clayton RN) PRN Medication Order 11/20/2022 11/21/2022 11/22/2022 dextrose (GLUTOSE) 40 % oral gel(Linked Group 2) 15 g of glucose, Buccal, PRN, Starting on Tue11/19/22 at 1323, Until Discontinued, blood glucose between 50 - 69 mg/dL, and with no IV access, alert and able to swallow. dextrose (GLUTOSE) 40 % oral gel(Linked Group 2) 30 g of glucose, Buccal, PRN, Starting on Tue11/19/22 at 1323, Until Discontinued, blood glucose of 49mg/dL or less, and with no IV access, alert and able to swallow. dextrose 10 % iv infusion(Linked Group 2) 125 mL, Intravenous, at 999 mL/hr, PRN, Starting on Tue11/19/22 at 1323, Until Discontinued, For blood glucose less than 70 mg/dL, with IV access and with loss of consciousness or unable to swallow or NPO dicyclomine (BENTYL) 10 MG capsule (CANCELED) 20 mg, Oral, 4 TIMES DAILY PRN, Starting on 11/20/22 at 0846, Until 11/22/22 at 1037, abd cramping 1106 (Given - Provider: Amy Clayton RN) 0843 (Given - Provider: Amy Clayton RN) 1001 (Given - Provider: Lottie Steinberg RN) glucagon (GLUCAGEN) 1 MG/ML injection kit(Linked Group 2) 1 mg, Subcutaneous, PRN, Starting on Tue11/19/22 at 1323, Until Discontinued, For blood glucose less than 70 mg/dL and with no IV access with loss of consciousness or alert and unable to swallow. hydrALAZINE (APRESOLINE) 20 mg/mL injection (CANCELED) 20 mg, Intravenous Push, EVERY 6 HOURS PRN, Starting on Tue11/19/22 at 0223, Until 11/21/22 at 1139, Other, For SBP>170 0453 (Given - Provider: Joya Chase RN) ketorolac (TORADOL) 15 MG/ML injection (CANCELED) 15 mg, Intravenous Push, EVERY 6 HOURS PRN, Starting on Tue11/19/22 at 1110, Until 11/21/22 at 1405, Mild Pain (pain score 1,2,3), Moderate Pain (pain score 4,5,6) 0758 (Given - Provider: Amy Clayton RN)1556 (Given - Provider: Amy Clayton RN) oxyCODONE immediate release tablet (CANCELED) 5 mg, Oral, EVERY 8 HOURS PRN, Starting on Tue11/19/22 at 1404, Until 11/20/22 at 0847, Severe Pain (pain score 7,8,9,10) 0647 (Given - Provider: Yessica Christopher RN) oxyCODONE immediate release tablet 5 mg, Oral, EVERY 12 HOURS PRN, Starting on 11/20/22 at 0900, Until Discontinued, Severe Pain (pain score 7,8,9,10) 2028 (Given - Provider: Joya Chase, RN) 0843 (Given - Provider: Amy Clayton, RN)2153 (Given - Provider: Eddy Boyce, RN) 1644 (Given - Provider: Lottie Steinberg, CONCHITA) PHENobarbital Sodium 65 MG/ML injection 65 mg, Intravenous Push, EVERY 6 HOURS PRN, Starting on Tue11/19/22 at 1035, Until Discontinued, CIWA 9-12 and SBP greater than 165 mmHg and/or HR greater than 100 beats per minute, or CIWA 13 and above 1717 (Mistaken Entry - Provider: Amy Clayton RN) Linked Groups Order Group 1: vitamin B-1 (thiamine) 500 mg in dextrose 5 % 100 mL IVPB (COMPLETED)Jump to med 500 mg, Intravenous, DAILY, 3 doses, First dose on Tue11/19/22 at 0230, Last dose on Tue11/21/22 at 0900 Followed by vitamin B-1 (THIAMINE) tabletJump to med 250 mg, Oral, DAILY, 3 doses, First dose on Tue11/22/22 at 0900, Last dose on Tue11/24/22 at 0900 Followed by vitamin B-1 (THIAMINE) tabletJump to med 100 mg, Oral, DAILY, First dose on Tue11/25/22 at 0900, Until Discontinued Group 2: dextrose 10 % iv infusionJump to med 125 mL, Intravenous, at 999 mL/hr, PRN, Starting on Tue11/19/22 at 1323, Until Discontinued, For blood glucose less than 70 mg/dL, with IV access and with loss of consciousness or unable to swallow or NPO Or glucagon (GLUCAGEN) 1 MG/ML injection kitJump to med 1 mg, Subcutaneous, PRN, Starting on Tue11/19/22 at 1323, Until Discontinued, For blood glucose less than 70 mg/dL and with no IV access with loss of consciousness or alert and unable to swallow. Or dextrose (GLUTOSE) 40 % oral gelJump to med 15 g of glucose, Buccal, PRN, Starting on Tue11/19/22 at 1323, Until Discontinued, blood glucose between 50 - 69 mg/dL, and with no IV access, alert and able to swallow. Or dextrose (GLUTOSE) 40 % oral gelJump to med 30 g of glucose, Buccal, PRN, Starting on Tue11/19/22 at 1323, Until Discontinued, blood glucose of 49mg/dL or less, and with no IV access, alert and able to swallow. Inactive Administered Medications - up to 3 most recent administrations Administered Medications (un recognized section and content) Medication Order MAR Action Action Date Dose Rate Site betamethasone acetate-betamethasone sodium phosphate 6 mg injection (CELESTONE) 6 mg, Injection - FOR ORTHO USE ONLY, ONCE, 1 dose, Starting on Tue08/10/23 at 1306, Until Tue08/10/23 at 1306 Given 08/10/2023 1:06 PM EDT 6 mg Hand, Left betamethasone acetate-betamethasone sodium phosphate 6 mg injection (CELESTONE) 6 mg, Injection - FOR ORTHO USE ONLY, ONCE, 1 dose, Starting on Tue08/10/23 at 1306, Until Tue08/10/23 at 1306 Given 08/10/2023 1:06 PM EDT 6 mg Hand, Right lidocaine (PF) 10 mg/mL (1 %) 1 mL injection (XYLOCAINE) 1 mL, Injection - FOR ORTHO USE ONLY, ONCE, 1 dose, Starting on Tue08/10/23 at 1306, Until Tue08/10/23 at 1306 Given 08/10/2023 1:06 PM EDT 1 mL Hand, Left lidocaine (PF) 10 mg/mL (1 %) 1 mL injection (XYLOCAINE) 1 mL, Injection - FOR ORTHO USE ONLY, ONCE, 1 dose, Starting on Tue08/10/23 at 1306, Until Tue08/10/23 at 1306 Given 08/10/2023 1:06 PM EDT 1 mL Hand, Right FOR RECORDS PERTAINING TO PATIENTS WHO ARE OR HAVE BEEN ENROLLED IN A CHEMICAL DEPENDENCY/SUBSTANCEABUSE PROGRAM, SOME INFORMATION MAY BE OMITTED. This clinical summary was aggregated from multiple sources. Caution should be exercised in using it in the provision of clinical care. This summary normalizes information from multiple sources, and as a consequence, information in this document may materially change the coding, format and clinical context of patient data. In addition, data may be omitted in some cases. CLINICAL DECISIONS SHOULD BE BASED ON THE PRIMARY CLINICAL RECORDS. [facility]. provides no warranty or guarantee of the accuracy or completeness of information in this document.
--- NOTE | 2024-03-26 23:04 | CT_ITS ---
The [address] [address] Patient Name: JOHN ASTORGA MRN: [id number] date: 1960 Sex: M Assigned Patient Location: ER Current Patient Location: ER Accession/Order Number: [id number] Exam Date: 03/26/2024 23:27 Report Date: 03/27/2024 00:29 At the request of: RAMEZ LARIOS Procedure: CT head/brain wo con EXAM: CT head/brain wo con HISTORY: headache COMPARISON: Head CT 12/22/2023 TECHNIQUE: Axial CT images of the head without contrast. Coronal and sagittal reformats were provided. Dose reduction techniques were achieved by using automated exposure control and/or adjustment of mA and/or kV according to patient size and/or use of iterative reconstruction technique. FINDINGS: Acute: No hemorrhage, herniation, or hydrocephalus. No evidence of recent infarct. Brain: Brain parenchyma within normal limits in density and volume for age. Vessels: No abnormal intravascular density to suggest thrombosis. Bones: No suspicious lesion in the calvarium or skull base. Other: Left frontal sinus mucosal thickening with frothy secretions. CT/CT head/brain wo con IMPRESSION: 1. No acute intracranial findings. 2. Left frontal sinusitis. Electronically authenticated by: VIRGIL YATES Date: 03/27/2024 00:29
--- NOTE | 2024-03-26 23:06 | ED_ITS ---
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 States he was followed by Neurology but not currently. Now presents complaining of migraine headache. No numbness or weakness of his extremities. No neck pain or stiffness. No nausea. Does have photophobia Related Data Home Medications ?Medication ?Instructions ?Recorded ?Confirmed escitalopram oxalate 20 mg tablet 30 mg PO .QD 03/26/24 03/26/24 gabapentin 300 mg capsule 300 mg PO Q12H 03/26/24 03/26/24 losartan 50 mg tablet 50 mg PO .QD 03/26/24 03/26/24 metoprolol succinate 50 mg 50 mg PO .QHS 03/26/24 03/26/24 tablet,extended release 24 hr naproxen 500 mg tablet 500 mg PO Q12H PRN pain 03/26/24 03/26/24 omega-3 fatty acids-fish oil 300 2 cap PO .QD 03/26/24 03/26/24 mg-1,000 mg capsule pantoprazole 40 mg tablet,delayed 40 mg PO .QD 03/26/24 03/26/24 release rosuvastatin 5 mg tablet 5 mg PO .QHS 03/26/24 03/26/24 Previous Rx's ?Medication ?Instructions ?Recorded methocarbamol 750 mg tablet 750 mg PO TID PRN pain #20 tabs 12/22/23 Allergies Allergy/AdvReac Type Severity Reaction Status Date / Time No Known Drug Allergies Allergy Verified 03/26/24 22:28 Opioid HPI Opioid Management Most Recent Opioid Data: No Data to Display Review of Systems ROS Status of ROS 10 or more systems reviewed and unremark able except as noted in history and below PFSH PFS Social History Little interest or pleasure in doing things: not at all Feeling down, depressed, or hopeless: nearly every day Exam Constitutional Vital Signs, click to edit/add: Last Vital Signs Temp 98 F 03/26/24 22:28 Pulse 101 H 03/26/24 22:28 Resp 18 03/26/24 22:28 BP 107/69 03/26/24 22:28 Pulse Ox 95 03/26/24 22:28 O2 Del Method Room Air 03/26/24 22:28 Common normals: average body habitus, oriented x3, no limitations, healthy appearing, alert and well nourished [facility] Common normals: normocephalic and head/scalp atraumatic Eye Common normals: PERRL and EOMs intact bilaterally Other: no definite photophobia Respiratory Common normals: normal respiratory effort, no retractions, no use of accessory muscles and clear to auscultation bilaterally Cardio Common normals: regular rate, regular rhythm, S1 normal heart sound and S2 normal heart sound Extremity Common normals: normal to inspection and full ROM Neuro Common normals: oriented x3, CN's II-XII intact bilaterally, moves all extremities and no focal motor deficits Psych Appearance: grossly normal Course Vital Signs Vital signs: Vital Signs Temperature 98 F 03/26/24 22:28 Pulse Rate 101 H 03/26/24 22:28 Respiratory Rate 18 03/26/24 22:28 Blood Pressure 107/69 03/26/24 22:28 Pulse Oximetry 95 03/26/24 22:28 Oxygen Delivery Method Room Air 03/26/24 22:28 Temperature 98 F 03/26/24 22:28 Pulse Rate 101 H 03/26/24 22:28 Respiratory Rate 18 03/26/24 22:28 Blood Pressure 107/69 03/26/24 22:28 Pulse Oximetry 95 03/26/24 22:28 Oxygen Delivery Method Room Air 03/26/24 22:28 Medical Decision Making [facility] Narrative Medical decision making narrative: patient presents complaining of post traumatic headache and migraine. Patient cooperative but intoxicated. IV established and patient medicated for his headache. labs drawn and diagnostic studies performed. Per nursing patient left the department with IV in place. Nursing did contact him and he states he took the IV out. Nursing planing to contact the police Lab Data Labs: Lab Results 03/26/24 Range/Units 23:15 WBC 9.9 (4.0-11.0) 10^3/uL RBC 4.43 L (4.70-6.10) 10^6/uL Hgb 14.5 (14.0-18.0) g/dL Hct 41.5 L (42.0-54.0) % MCV 93.7 (80.0-94.0) fL MCH 32.7 (25.9-34.0) pg MCHC 34.9 (29.9-35.2) g/dL RDW 13.3 (11.0-15.0) % Plt Count 276 (150-450) 10^3/uL MPV 9.0 L (9.5-13.5) fL Neut % (Auto) 54.4 (43.0-75.0) % Lymph % (Auto) 36.7 (20.5-60.0) % [place] % (Auto) 6.2 (1.7-12.0) % Eos % (Auto) 1.3 (0.9-7.0) % Baso % (Auto) 0.6 (0.2-2.0) % Neut # (Auto) 5.4 (1.4-6.5) 10^3/uL Lymph # (Auto) 3.6 (1.2-3.8) 10^3/uL [place] # (Auto) 0.6 (0.3-0.8) 10^3/uL Eos # (Auto) 0.1 (0.0-0.7) 10^3/uL Baso # (Auto) 0.1 (0.0-0.1) 10^3/uL Abs Immat Gran (auto) 0.08 H (0.00-0.03) 10^3/uL Imm/Tot Granulo (auto) 0.8 H (0.0-0.5) % Sodium 144 (136-145) mmol/L Potassium 3.6 (3.5-5.1) mmol/L Chloride 107 (98-107) mmol/L Carbon Dioxide 22.5 (21.0-32.0) mmol/L Anion Gap 18.1 BUN 25.0 H (7.0-18.0) mg/dL Creatinine 1.12 (0.70-1.30) mg/dL Est GFR ( Amer) >60 (>=60 mL/min/1.73m^2) Est GFR (Non-Af Amer) >60 (>=60 mL/min/1.73m^2) BUN/Creatinine Ratio 22.3 Glucose 94 (74-106) mg/dL Calcium 9.0 (8.5-10.1) mg/dL Ethanol Quant 160 mg/dL Discharge Plan Discharge Stand Alone Forms: Portal Instructions Chief Complaint: Headache Clinical Impression: Headache, Alcohol intoxication Patient Disposition: Left Against Medical Advice Prescriptions / Home Meds: No Action escitalopram oxalate 20 mg tablet 30 mg PO .QD gabapentin 300 mg capsule 300 mg PO Q12H losartan 50 mg tablet 50 mg PO .QD metoprolol succinate 50 mg tablet extended release 24 hr 50 mg PO .QHS naproxen 500 mg tablet 500 mg PO Q12H PRN (Reason: pain) omega-3 fatty acids-fish oil 300-1,000 mg capsule 2 cap PO .QD pantoprazole 40 mg tablet,delayed release (DR/EC) 40 mg PO .QD rosuvastatin 5 mg tablet 5 mg PO .QHS methocarbamol 750 mg tablet 750 mg PO TID PRN (Reason: pain) Qty: 20 0RF Print Language: Indonesian Referrals: Physician,Non-Staff, MD [Primary Care Provider] - 1 week
[2024-03-26] MEDS: METOCLOPRAMIDE HCL 10 MG/2 ML VIAL IVP (23:18)
[2024-03-26] MEDS: METHYLPREDNISOLONE SOD SUCC PF 125 MG/2 ML VIAL IVP (23:18)
[2024-03-26 23:31] LABS: Basophils Absolute Auto 0.1 10^3/uL (0.0-0.1); Basophils Percent Auto 0.6 % (0.2-2.0); Eosinophils Absolute Auto 0.1 10^3/uL (0.0-0.7); Eosinophils Percent Auto 1.3 % (0.9-7.0); Hematocrit 41.5 % (42.0-54.0); Hemoglobin 14.5 g/dL (14.0-18.0); Immature Granulocytes Abs Auto 0.08 10^3/uL (0.00-0.03); Immature Granulocytes Pct Auto 0.8 % (0.0-0.5); Lymphocytes Absolute Auto 3.6 10^3/uL (1.2-3.8); Lymphocytes Percent Auto 36.7 % (20.5-60.0); Mean Corpuscular HGB Conc 34.9 g/dL (29.9-35.2); Mean Corpuscular Hemoglobin 32.7 pg (25.9-34.0); Mean Corpuscular Volume 93.7 fL (80.0-94.0); Monocytes Absolute Auto 0.6 10^3/uL (0.3-0.8); Monocytes Percent Auto 6.2 % (1.7-12.0); Neutrophils Absolute Auto 5.4 10^3/uL (1.4-6.5); Neutrophils Percent Auto 54.4 % (43.0-75.0); Platelet Count 276 10^3/uL (150-450); Red Blood Count 4.43 10^6/uL (4.70-6.10); Red Cell Distribution Width 13.3 % (11.0-15.0); White Blood Count 9.9 10^3/uL (4.0-11.0)
[2024-03-26 23:40] LABS: Anion Gap 18.1; BUN Creatinine Ratio 22.3; Carbon Dioxide 22.5 mmol/L (21.0-32.0); Chloride 107 mmol/L (98-107); Estimated GFR (African America >60 (>=60 mL/min/1.73m^2); Estimated GFR (Non-African Ame >60 (>=60 mL/min/1.73m^2); Glucose 94 mg/dL (74-106); Potassium 3.6 mmol/L (3.5-5.1); Sodium 144 mmol/L (136-145)
[2024-03-26 23:42] LABS: Ethanol 160 mg/dL
--- NOTE | 2024-03-27 00:51 | PC.NURSE ---
On realizing pt had absconded from ED, this RN asked security to assist with how he left as registration had not seen him leave. This RN then attempted to call pts cell phone and he did answer. Pt stated he couldn't wait around anymore. He stated he called his girlfriend and she picked him up. This RN told him he should not have left with an IV in his arm or without telling someone. Pt stated he had seen it removed many times and had already took it out. This RN asked if he was at home and he said no. He said he was with his girlfriend. This RN told him that his CT of head result was not back and depending on findings, he may need to come back. Pt stated he would answer his phone and that he was very sorry but he has an important meeting he has to be at in the morning at 6am. Pt stated he was fine and had took some Excedrin migraine. environmental conservation officer Hector, then notified me he (pt) had left ED at 1148pm and later told me he didn't get picked up but went and got into a car and drove off. This RN notified [facility] department, and spoke with dispatch regarding pt absconding with an IV in his arm, in addition to him having a pending CT scan of head d/t injury. Dispatcher Farida said she would notify officers to do a wellness check.
== END 2024-03-27 00:15 | disposition left against medical advice (07) ==
PROVIDERS: Emergency Provider Internal Medicine
DX: R51.9 Headache, unspecified (principal); F10.129 Alcohol abuse with intoxication, unspecified; Y90.5 Blood alcohol level of 100-119 mg/100 ml; Z53.29 Procedure and treatment not carried out because of patient's decision for other reasons
CPT/HCPCS: 36415; 70450; 80048; 80320; 85025; 96374; 96375; 99284; J2765; J2919

== ENCOUNTER 2024-07-02 18:18 | Emergency (ER) | payer OTHER, SELFPAY ==
[2024-07-02 18:26] VITALS: BP 85/50; PULSE 101; TEMP 36.8; O2SAT 94; BMI 27.9
[2024-07-02 18:48] VITALS: BP 100/67
--- NOTE | 2024-07-02 18:49 | PC.NURSE ---
Pain to right hand. Surgical incision clean and dry with surgical glue intact, no redness or drainage at site.
[2024-07-02] MEDS: 0.9 % SODIUM CHLORIDE 1,000 ML 999 ML IV (19:12)
[2024-07-02] MEDS: FENTANYL CITRATE/PF 100 MCG/2 ML VIAL 50 MCG IV (19:14)
[2024-07-02 19:29] LABS: Basophils Absolute Auto 0.1 10^3/uL (0.0-0.1); Eosinophils Absolute Auto 0.1 10^3/uL (0.0-0.7); Hematocrit 37.2 % (42.0-54.0); Hemoglobin 12.8 g/dL (14.0-18.0); Immature Granulocytes Abs Auto 0.21 10^3/uL (0.00-0.03); Immature Granulocytes Pct Auto 3.4 % (0.0-0.5); Lymphocytes Absolute Auto 1.1 10^3/uL (1.2-3.8); Lymphocytes Percent Auto 18.6 % (20.5-60.0); Mean Corpuscular HGB Conc 34.4 g/dL (29.9-35.2); Mean Corpuscular Hemoglobin 34.1 pg (25.9-34.0); Mean Corpuscular Volume 99.2 fL (80.0-94.0); Mean Platelet Volume 9.3 fL (9.5-13.5); Monocytes Absolute Auto 0.8 10^3/uL (0.3-0.8); Monocytes Percent Auto 13.3 % (1.7-12.0); Neutrophils Absolute Auto 3.8 10^3/uL (1.4-6.5); Neutrophils Percent Auto 62.7 % (43.0-75.0); Platelet Count 204 10^3/uL (150-450); Red Blood Count 3.75 10^6/uL (4.70-6.10); Red Cell Distribution Width 14.4 % (11.0-15.0); White Blood Count 6.1 10^3/uL (4.0-11.0)
[2024-07-02 19:32] LABS: Influenza Virus A Antigen Positive; Influenza Virus B Antigen Negative; Internal Control Within Normal Limits; Respiratory Syncytial Virus Not Detected (NOT DETECTE); SARS-CoV-2 Ag NEGATIVE (NEGATIVE)
[2024-07-02 19:51] LABS: Lactate/Lactic Acid 1.7 mmol/L (0.4-2.0)
[2024-07-02 19:58] LABS: Alanine Aminotransferase 25 U/L (16-63); Albumin Globulin Ratio 0.9; Albumin Level 3.2 g/dL (3.4-5.0); Alkaline Phosphatase 118 U/L (46-116); Anion Gap 18.1; Aspartate Amino Transferase 34 U/L (15-37); BUN Creatinine Ratio 7.5; Bilirubin Total 0.3 mg/dL (0.2-1.0); Calcium 8.6 mg/dL (8.5-10.1); Chloride 99 mmol/L (98-107); Estimated GFR (African America >60 (>=60 mL/min/1.73m^2); Estimated GFR (Non-African Ame >60 (>=60 mL/min/1.73m^2); Ethanol 78 mg/dL; Globulin 3.5 g/dL; Glucose 102 mg/dL (74-106); Potassium 3.1 mmol/L (3.5-5.1); Sodium 137 mmol/L (136-145); Total Protein 6.7 g/dL (6.4-8.2)
[2024-07-02 20:00] LABS: C Reactive Protein 5.29 mg/dL (<=0.50)
[2024-07-02] MEDS: POTASSIUM CHLORIDE 10 MEQ ER TABLET 40 MEQ PO (20:58)
--- NOTE | 2024-07-02 21:11 | ED_ITS ---
Documented by User: KAE Manzo 07/02/24 21:32 HPI - Extremity Problem General Chief complaint: Extremity Problem, Nontraumatic Stated complaint: POST OP INFECTION Time Seen by Provider: 07/02/24 18:51 Source: patient Mode of arrival: ambulance Limitations: no limitations History of Present Illness HPI Narrative: 64-year-old male presents to the emergency department via EMS with concern about wound infection. Patient had hand surgery performed this past Tuesday at [facility] in [place]. Thought he had some drainage, but describes it as clear. He took off his splint due to the drainage soaking the splint, per patient. Does have some pain to the hand. Since yesterday, has had generalized bodyaches, cough, congestion, generalized malaise. Quality:?As above Severity:?Moderate Timing:?As above, constant Context: Normal setting and activity? Modifying factors:?as above Associated symptoms: as above Related Data Home Medications ?Medication ?Instructions ?Recorded ?Confirmed escitalopram oxalate 20 mg tablet 30 mg PO .QD 03/26/24 03/26/24 gabapentin 300 mg capsule 300 mg PO Q12H 03/26/24 03/26/24 losartan 50 mg tablet 50 mg PO .QD 03/26/24 03/26/24 metoprolol succinate 50 mg 50 mg PO .QHS 03/26/24 03/26/24 tablet,extended release 24 hr naproxen 500 mg tablet 500 mg PO Q12H PRN pain 03/26/24 03/26/24 omega-3 fatty acids-fish oil 300 2 cap PO .QD 03/26/24 03/26/24 mg-1,000 mg capsule pantoprazole 40 mg tablet,delayed 40 mg PO .QD 03/26/24 03/26/24 release rosuvastatin 5 mg tablet 5 mg PO .QHS 03/26/24 03/26/24 Previous Rx's ?Medication ?Instructions ?Recorded methocarbamol 750 mg tablet 750 mg PO TID PRN pain #20 tabs 12/22/23 oseltamivir 75 mg capsule (Tamiflu) 75 mg PO BID 5 days #10 caps 07/02/24 Allergies Allergy/AdvReac Type Severity Reaction Status Date / Time No Known Drug Allergies Allergy Verified 07/02/24 18:26 Review of Systems ROS Narrative CONST: + malaise. Denies fever, chills HENT: + congestion. Denies sore throat RESP: + cough. Denies shortness of breath CV: Denies chest pain, palpitations GI: Denies abd pain, nausea, vomiting MS: + arthralgias, myalgias. SKIN: + color change s/p surgery NEURO: Denies numbness, weakness PSYCHIATRIC: Denies confusion, agitation PFSH PFSH Social History Little interest or pleasure in doing things: not at all Feeling down, depressed, or hopeless: not at all Exam Narrative Exam Narrative: Vital signs reviewed Nurses notes noted CONST: Nontoxic, well appearing, well nourished, in no distress.? No diaphoresis.?? HENT: normocephalic, atraumatic, moist mucous membrane, no abnormalities of the nose noted, hearing normal CV: normal rate, regular rhythm, no murmur RESP: normal effort, speaking in complete sentences. Lung sounds clear and equal bilat.? No wheezes, rales, rhonchi. Harsh, congested cough displayed : no CVA tenderness MS: Surgical wound noted overlying right first metatarsal. There is only very mild wound dehiscence, superficially. There is some surrounding redness. The wound is covered with surgical glue. He has some diffuse bruising running approximately from this region and to the dorsum of his hand. No drainage noted. He displays very good range of motion. Denies any sensory deficits SKIN: see MS NEURO: A&Ox 3, no focal findings, motor/sensory intact PSYCH: normal mood, affect Constitutional Vital Signs, click to edit/add: Last Vital Signs Temp 98.2 F 07/02/24 18:26 Pulse 101 H 07/02/24 18:26 Resp 20 07/02/24 18:48 BP 100/67 07/02/24 18:48 Pulse Ox 94 L 07/02/24 18:26 O2 Del Method Room Air 07/02/24 18:26 Course Reevaluation(s) Reevaluation #1: Pain improved. Discussed with patient results, plan, and disposition. He is agreeable. Time: 21:12 Consultations Consultation #1: Patient discussed with his ortho provider, Dr. Rosenthal from [facility]. Advised to reapply thumb spica splint and they will see him as scheduled. Time: 21:31 Vital Signs Vital signs: Vital Signs Temperature 98.2 F 07/02/24 18:26 Pulse Rate 101 H 07/02/24 18:26 Respiratory Rate 18 07/02/24 18:26 Blood Pressure 85/50 L 07/02/24 18:26 Pulse Oximetry 94 L 07/02/24 18:26 Oxygen Delivery Method Room Air 07/02/24 18:26 Temperature 98.2 F 07/02/24 18:26 Pulse Rate 101 H 07/02/24 18:26 Respiratory Rate 20 07/02/24 18:48 Blood Pressure 100/67 07/02/24 18:48 Pulse Oximetry 94 L 07/02/24 18:26 Oxygen Delivery Method Room Air 07/02/24 18:26 MDM - Extremity (Nontraumatic) MDM Narrative Medical decision making narrative: This is a pleasant 64-year-old male who presents to the emergency department for evaluation of postoperative wound to the right hand. Has also had generalized malaise, body aches, cough On arrival, afebrile, vital signs stable. On exam, nontoxic, well appearing patient, in no apparent distress. Surgical wound present overlying the right first metacarpal dorsally. Tissue glue over the wound. There is some very mild, superficial wound dehiscence and some surrounding redness. No drainage from the area. He has some ecchymosis coming away from this proximally running to the dorsum of the hand as well. He has good range of motion. Sensory is intact. No remarkable findings on HEENT exam. Heart regular rate and rhythm. Lung sounds clear and equal bilaterally. Patient tested positive for influenza A. Labs reveal no leukocytosis, H&H were 12.8 and 37.2. They were 14.5 and 41.5 in March 2024. Potassium was low at 3.1. No thrombocytopenia, renal impairment. CRP was mildly elevated at 5.29 Right hand x-ray imaging revealed reveals postoperative changes, no acute finding Favor influenza A, postoperative wound evaluation Fx/Dislocation less likely based on imaging Wound infection less likely based on history, physical exam, no leukocytosis, appreciable elevation of CRP History and Record Review Additional records reviewed: Prior H&H Management Independent interpretation: Right hand x-ray: Postoperative changes, no acute findings Re-Evaluation: See ED Course Disposition ? The patient was discharged. Prescriptions sent to pharmacy: Tamiflu Patient placed in splint Patient advised Ibuprofen/Tylenol as needed for pain Plan: Patient will be discharged to home. Condition at time of disposition: stable, improved. ? Advised to follow up with his orthopedic provider . Advised to return for any worsening and/or development of new, concerning signs or symptoms Admission considered, but no evidence of wound infection noted on physical exam, no leukocytosis PLEASE NOTE: Portions of the medical record may have been produced using electronic agricultural education professor and may contain errors with respect to translation of words which may not have been identified prior to finalization of the chart. Medical Records Attestation: I reviewed the patient's medical records. Lab Data Labs: Lab Results 07/02/24 07/02/24 Range/Units 18:50 19:01 WBC 6.1 (4.0-11.0) 10^3/uL RBC 3.75 L (4.70-6.10) 10^6/uL Hgb 12.8 L (14.0-18.0) g/dL Hct 37.2 L (42.0-54.0) % MCV 99.2 H (80.0-94.0) fL MCH 34.1 H (25.9-34.0) pg MCHC 34.4 (29.9-35.2) g/dL RDW 14.4 (11.0-15.0) % Plt Count 204 (150-450) 10^3/uL MPV 9.3 L (9.5-13.5) fL Neut % (Auto) 62.7 (43.0-75.0) % Lymph % (Auto) 18.6 L (20.5-60.0) % Johnson % (Auto) 13.3 H (1.7-12.0) % Eos % (Auto) 1.0 (0.9-7.0) % Baso % (Auto) 1.0 (0.2-2.0) % Neut # (Auto) 3.8 (1.4-6.5) 10^3/uL Lymph # (Auto) 1.1 L (1.2-3.8) 10^3/uL Johnson # (Auto) 0.8 (0.3-0.8) 10^3/uL Eos # (Auto) 0.1 (0.0-0.7) 10^3/uL Baso # (Auto) 0.1 (0.0-0.1) 10^3/uL Abs Immat Gran (auto) 0.21 H (0.00-0.03) 10^3/uL Imm/Tot Granulo (auto) 3.4 H (0.0-0.5) % Sodium 137 (136-145) mmol/L Potassium 3.1 L (3.5-5.1) mmol/L Chloride 99 (98-107) mmol/L Carbon Dioxide 23.0 (21.0-32.0) mmol/L Anion Gap 18.1 BUN 8.0 (7.0-18.0) mg/dL Creatinine 1.06 (0.70-1.30) mg/dL Est GFR ( Amer) >60 (>=60 mL/min/1.73m^2) Est GFR (Non-Af Amer) >60 (>=60 mL/min/1.73m^2) BUN/Creatinine Ratio 7.5 Glucose 102 (74-106) mg/dL Lactate 1.7 (0.4-2.0) mmol/L Calcium 8.6 (8.5-10.1) mg/dL Total Bilirubin 0.3 (0.2-1.0) mg/dL AST 34 (15-37) U/L ALT 25 (16-63) U/L Alkaline Phosphatase 118 H (46-116) U/L C-Reactive Protein 5.29 H (<=0.50) mg/dL Total Protein 6.7 (6.4-8.2) g/dL Albumin 3.2 L (3.4-5.0) g/dL Globulin 3.5 g/dL Albumin/Globulin Ratio 0.9 Ethanol Quant 78 mg/dL Influenza Type A Ag Positive A Influenza Type B Ag Negative RSV Antigen Not detected (NOT DETECTE) SARS-CoV-2 Ag (CV2AG) Negative (NEGATIVE) Imaging Data right hand: Attestation: I personally reviewed and interpreted this imaging study as follows: My impression: Postoperative changes, no acute Discharge Plan Discharge Chief Complaint: Extremity Problem, Nontraumatic Clinical Impression: Influenza A, Surgical wound present Patient Disposition: Home, Self-Care Time of Disposition Decision: 21:12 Condition: Good Mode of Transportation: Private Vehicle Prescriptions / Home Meds: New oseltamivir [Tamiflu] 75 mg capsule 75 mg PO BID 5 Days Qty: 10 0RF No Action escitalopram oxalate 20 mg tablet 30 mg PO .QD gabapentin 300 mg capsule 300 mg PO Q12H losartan 50 mg tablet 50 mg PO .QD metoprolol succinate 50 mg tablet extended release 24 hr 50 mg PO .QHS naproxen 500 mg tablet 500 mg PO Q12H PRN (Reason: pain) omega-3 fatty acids-fish oil 300-1,000 mg capsule 2 cap PO .QD pantoprazole 40 mg tablet,delayed release (DR/EC) 40 mg PO .QD rosuvastatin 5 mg tablet 5 mg PO .QHS methocarbamol 750 mg tablet 750 mg PO TID PRN (Reason: pain) Qty: 20 0RF Print Language: Bangladeshi Instructions: Influenza (ED), Acute Wounds (ED) Referrals: Christoph Rosenthal [Other] - 07/03/24 Discharge Date/Time: 07/02/24 21:41 Procedures ED Ortho Splinting/Casting Orthopedic Splinting/Casting right hand/wrist: Side: right Splint type: Splint arm short Upper extremity injury location: hand and finger Upper extremity immobilizer: thumb spica Additional comments: ED PROCEDURE NOTE: SPLINTING/STRAPPING The ED breeder hen service technician applied a short arm fiberglass thumb spica splint/immobilizer to the right thumb/wrist of the patient. Wound dressings applied prior to application. The area was examined post application and there was good alignment and good neurovascular function of the splinted/immobilized body part following the procedure. The patient tolerated the procedure well. Electronically verified by Pancho John PA-C Documented by User: Scott House MD 07/03/24 07:37 HPI - Extremity Problem General Chief complaint: Extremity Problem, Nontraumatic Stated complaint: POST OP INFECTION Time Seen by Provider: 07/02/24 18:51 Related Data Home Medications ?Medication ?Instructions ?Recorded ?Confirmed escitalopram oxalate 20 mg tablet 30 mg PO .QD 11/25/24 11/25/24 gabapentin 300 mg capsule 300 mg PO Q12H 03/26/24 03/26/24 losartan 50 mg tablet 50 mg PO .QD 03/26/24 03/26/24 metoprolol succinate 50 mg 50 mg PO .QHS 03/26/24 03/26/24 tablet,extended release 24 hr naproxen 500 mg tablet 500 mg PO Q12H PRN pain 03/26/24 03/26/24 omega-3 fatty acids-fish oil 300 2 cap PO .QD 03/26/24 03/26/24 mg-1,000 mg capsule pantoprazole 40 mg tablet,delayed 40 mg PO .QD 03/26/24 03/26/24 release rosuvastatin 5 mg tablet 5 mg PO .QHS 03/26/24 03/26/24 Previous Rx's ?Medication ?Instructions ?Recorded methocarbamol 750 mg tablet 750 mg PO TID PRN pain #20 tabs 12/22/23 oseltamivir 75 mg capsule (Tamiflu) 75 mg PO BID 5 days #10 caps 07/02/24 Allergies Allergy/AdvReac Type Severity Reaction Status Date / Time No Known Drug Allergies Allergy Verified 07/02/24 18:26 [facility] Social History Little interest or pleasure in doing things: not at all Feeling down, depressed, or hopeless: not at all Exam Constitutional Vital Signs, click to edit/add: Last Vital Signs Temp 98.2 F 07/02/24 18:26 Pulse 101 H 07/02/24 18:26 Resp 20 07/02/24 18:48 BP 100/67 07/02/24 18:48 Pulse Ox 94 L 07/02/24 18:26 O2 Del Method Room Air 07/02/24 18:26 Course Vital Signs Vital signs: Vital Signs Temperature 98.2 F 07/02/24 18:26 Pulse Rate 101 H 07/02/24 18:26 Respiratory Rate 18 07/02/24 18:26 Blood Pressure 85/50 L 07/02/24 18:26 Pulse Oximetry 94 L 07/02/24 18:26 Oxygen Delivery Method Room Air 07/02/24 18:26 Temperature 98.2 F 07/02/24 18:26 Pulse Rate 101 H 07/02/24 18:26 Respiratory Rate 20 07/02/24 18:48 Blood Pressure 100/67 07/02/24 18:48 Pulse Oximetry 94 L 07/02/24 18:26 Oxygen Delivery Method Room Air 07/02/24 18:26 MDM - Extremity (Nontraumatic) MDM Narrative Medical decision making narrative: This is a pleasant 64-year-old male who presents to the emergency department for evaluation of postoperative wound to the right hand. Has also had generalized malaise, body aches, cough On arrival, afebrile, vital signs stable. On exam, nontoxic, well appearing patient, in no apparent distress. Surgical wound present overlying the right first metacarpal dorsally. Tissue glue over the wound. There is some very mild, superficial wound dehiscence and some surrounding redness. No drainage from the area. He has some ecchymosis coming away from this proximally running to the dorsum of the hand as well. He has good range of motion. Sensory is intact. No remarkable findings on HEENT exam. Heart regular rate and rhythm. Lung sounds clear and equal bilaterally. Patient tested positive for influenza A. Labs reveal no leukocytosis, H&H were 12.8 and 37.2. They were 14.5 and 41.5 in March 2024. Potassium was low at 3.1. No thrombocytopenia, renal impairment. CRP was mildly elevated at 5.29 Right hand x-ray imaging revealed reveals postoperative changes, no acute finding Favor influenza A, postoperative wound evaluation Fx/Dislocation less likely based on imaging Wound infection less likely based on history, physical exam, no leukocytosis, appreciable elevation of CRP History and Record Review Additional records reviewed: Prior H&H Management Independent interpretation: Right hand x-ray: Postoperative changes, no acute findings Re-Evaluation: See ED Course Disposition ? The patient was discharged. Prescriptions sent to pharmacy: Tamiflu Patient placed in splint Patient advised Ibuprofen/Tylenol as needed for pain Plan: Patient will be discharged to home. Condition at time of disposition: stable, improved. ? Advised to follow up with his orthopedic provider . Advised to return for any worsening and/or development of new, concerning signs or symptoms Admission considered, but no evidence of wound infection noted on physical exam, no leukocytosis PLEASE NOTE: Portions of the medical record may have been produced using electronic agricultural education professor and may contain errors with respect to translation of words which may not have been identified prior to finalization of the chart. Patient was seen and evaluated with collaboration with Dr. Mann. This patient came into the ER at shift change, patient was seen by Natividad and Dr Mann, not Dr House Lab Data Labs: Lab Results 07/02/24 07/02/24 Range/Units 18:50 19:01 WBC 6.1 (4.0-11.0) 10^3/uL RBC 3.75 L (4.70-6.10) 10^6/uL Hgb 12.8 L (14.0-18.0) g/dL Hct 37.2 L (42.0-54.0) % MCV 99.2 H (80.0-94.0) fL MCH 34.1 H (25.9-34.0) pg MCHC 34.4 (29.9-35.2) g/dL RDW 14.4 (11.0-15.0) % Plt Count 204 (150-450) 10^3/uL MPV 9.3 L (9.5-13.5) fL Neut % (Auto) 62.7 (43.0-75.0) % Lymph % (Auto) 18.6 L (20.5-60.0) % Johnson % (Auto) 13.3 H (1.7-12.0) % Eos % (Auto) 1.0 (0.9-7.0) % Baso % (Auto) 1.0 (0.2-2.0) % Neut # (Auto) 3.8 (1.4-6.5) 10^3/uL Lymph # (Auto) 1.1 L (1.2-3.8) 10^3/uL Johnson # (Auto) 0.8 (0.3-0.8) 10^3/uL Eos # (Auto) 0.1 (0.0-0.7) 10^3/uL Baso # (Auto) 0.1 (0.0-0.1) 10^3/uL Abs Immat Gran (auto) 0.21 H (0.00-0.03) 10^3/uL Imm/Tot Granulo (auto) 3.4 H (0.0-0.5) % Sodium 137 (136-145) mmol/L Potassium 3.1 L (3.5-5.1) mmol/L Chloride 99 (98-107) mmol/L Carbon Dioxide 23.0 (21.0-32.0) mmol/L Anion Gap 18.1 BUN 8.0 (7.0-18.0) mg/dL Creatinine 1.06 (0.70-1.30) mg/dL Est GFR ( Amer) >60 (>=60 mL/min/1.73m^2) Est GFR (Non-Af Amer) >60 (>=60 mL/min/1.73m^2) BUN/Creatinine Ratio 7.5 Glucose 102 (74-106) mg/dL Lactate 1.7 (0.4-2.0) mmol/L Calcium 8.6 (8.5-10.1) mg/dL Total Bilirubin 0.3 (0.2-1.0) mg/dL AST 34 (15-37) U/L ALT 25 (16-63) U/L Alkaline Phosphatase 118 H (46-116) U/L C-Reactive Protein 5.29 H (<=0.50) mg/dL Total Protein 6.7 (6.4-8.2) g/dL Albumin 3.2 L (3.4-5.0) g/dL Globulin 3.5 g/dL Albumin/Globulin Ratio 0.9 Ethanol Quant 78 mg/dL Influenza Type A Ag Positive A Influenza Type B Ag Negative RSV Antigen Not detected (NOT DETECTE) SARS-CoV-2 Ag (CV2AG) Negative (NEGATIVE) Discharge Plan Discharge Chief Complaint: Extremity Problem, Nontraumatic Clinical Impression: Influenza A, Surgical wound present Patient Disposition: Home, Self-Care Time of Disposition Decision: 21:12 Condition: Good Mode of Transportation: Private Vehicle Prescriptions / Home Meds: New oseltamivir [Tamiflu] 75 mg capsule 75 mg PO BID 5 Days Qty: 10 0RF No Action escitalopram oxalate 20 mg tablet 30 mg PO .QD gabapentin 300 mg capsule 300 mg PO Q12H losartan 50 mg tablet 50 mg PO .QD metoprolol succinate 50 mg tablet extended release 24 hr 50 mg PO .QHS naproxen 500 mg tablet 500 mg PO Q12H PRN (Reason: pain) omega-3 fatty acids-fish oil 300-1,000 mg capsule 2 cap PO .QD pantoprazole 40 mg tablet,delayed release (DR/EC) 40 mg PO .QD rosuvastatin 5 mg tablet 5 mg PO .QHS methocarbamol 750 mg tablet 750 mg PO TID PRN (Reason: pain) Qty: 20 0RF Print Language: Bangladeshi Instructions: Influenza (ED), Acute Wounds (ED) Referrals: Christoph Rosenthal [Other] - 07/03/24 Discharge Date/Time: 07/02/24 21:41
[2024-07-02] MEDS: OSELTAMIVIR PHOSPHATE 75 MG CAPSULE PO (21:20)
--- NOTE | 2024-07-02 21:42 | PC.NURSE ---
i gave this patient verbal and written discharge orders along with 1 e-script and this patient voices yes to understanding these. at time of discharge this patient voices no concerns and shows no signs of distress. this patient is waiting in ER Onur greenhouse assistant is working on a ride for this patient
== END 2024-07-02 21:41 | disposition home or self-care (01) ==
PROVIDERS: Physician Assistant; Emergency Provider Emergency Medicine; PCP Internal Medicine
DX: J10.1 Influenza due to other identified influenza virus with other respiratory manifestations (principal); T81.31XA Disruption of external operation (surgical) wound, not elsewhere classified, initial encounter; Z98.890 Other specified postprocedural states
CPT/HCPCS: 29125; 36415; 73130; 80053; 80320; 83605; 85025; 86140; 87420; 87804; 87811; 96374; 99284; J3010